=== PATIENT | male | born 1935 | race Caucasian/White ===

== ENCOUNTER 2020-02-27 12:35 | Emergency (ER) | payer MEDICARE ==
[~2020-02-27] VITALS: Ht 182.9 cm; Wt 127.0 kg
--- NOTE | 2020-02-27 12:49 | ED Fall/Injury ---
General Chief Complaint: Trauma-Non Activation Stated Complaint: FALL/HIT HEAD Source: patient Exam Limitations: no limitations History of Present Illness Date Seen by Provider: Feb 27, 2020 Time Seen by Provider: 12:44 Initial Comments To ER with reports of a fall and hit his head. [facility] down on a bench when somehow he fell forward and struck the right side of his forehead on the ground but there was no loss of consciousness. He does have a small abrasion to the right side of forehead. Denies headache or confusion or neck pain. No vomiting or nausea or vision changes. He has some right anterior lateral lower chest pain over the lower ribs as well. He is on Eliquis for history of atrial fibrillation. He arrives by EMS. Occurred: just prior to arrival Severity: moderate Injuries/Pain Location: head, chest Context: unknown Associated Symptoms (Fall): Denies Symptoms Allergies and Home Medications Patient Home Medication List Home Medication List Reviewed: Yes Review of Systems Review of Systems Constitutional: see HPI Eyes: No Symptoms Reported Ears, Nose, Mouth, Throat: no symptoms reported Respiratory: no symptoms reported Cardiovascular: no symptoms reported Genitourinary: no symptoms reported Musculoskeletal: no symptoms reported Skin: no symptoms reported Psychiatric/Neurological: No Symptoms Reported Physical Exam Vital Signs Vital Signs - First Documented 02/27/20 12:39 Temp 35.4 Pulse 72 Resp 20 B/P (MAP) 154/94 (114) Pulse Ox 99 O2 Delivery Room Air Capillary Refill : Height, Weight, BMI Height: '" Weight: lbs. oz. kg; BMI Method: General Appearance: WD/WN, no apparent distress, other (small abrasion to the right side of the forehead. Alert and oriented talkative recalls all events very pleasant. No neck pain.) HEENT: PERRL/EOMI, normal ENT inspection, TMs normal Neck: non-tender, full range of motion; No tender lateral, No tender midline Respiratory: normal breath sounds, no respiratory distress, no accessory muscle use, other (the right anterior lateral lower chest over the lower ribs is tender to palpation but with a normal appearance.) Gastrointestinal: normal bowel sounds, non tender, soft Extremities: normal range of motion, non-tender Neurologic/Psychiatric: alert, normal mood/affect, oriented x 3 Skin: normal color, warm/dry Morena Coma Score Best Eye Response: (4) Open Spontaneously Best Verbal Response: (5) Oriented Best Motor Response: (6) Obeys Commands [place] Total: 15 Progress/Results/Core Measures Results/Orders My Orders Orders - MIRANDA SANCHEZ APRN Ct Head/Cervical Spine Wo (02/27/20 12:40) Ct Chest/Abdomen Wo (02/27/20 12:40) Vital Signs/I&O 02/27/20 12:39 Temp 35.4 Pulse 72 Resp 20 B/P (MAP) 154/94 (114) Pulse Ox 99 O2 Delivery Room Air Diagnostic Imaging Diagonstic Imaging: CT Comments NAME: KAREN CARTER [facility] REC#: [id number] PT STATUS: REG ER : 1935 PHYSICIAN: MIRANDA SANCHEZ APRN ADMIT DATE: 02/27/20/ER Draft Date of Exam:02/27/20 CT HEAD/CERVICAL SPINE WO PROCEDURE: CT head and CT cervical spine without contrast. TECHNIQUE: Multiple contiguous axial images were obtained through the brain and cervical spine without the use of intravenous contrast. Sagittal and coronal reformations through the cervical spine were then performed. Auto Exposure Controls were utilized during the CT exam to meet ALARA standards for radiation dose reduction. INDICATION: Fall with right upper quadrant pain. Hematoma to the right for head. EXAMINATION: CT brain without contrast from 02/27/2020 FINDINGS: Diffuse chronic ischemic changes seen in periventricular deep white matter distribution with no acute infarcts appreciated. There is no hemorrhage. There is diffuse atrophy. No mass, mass effect or midline shift appreciated. The calvarium is intact. Paranasal sinuses and mastoid air cells demonstrate diffuse chronic findings. IMPRESSION: 1. Chronic changes as above with no acute abnormality. CT CERVICAL SPINE: There is a normal height and alignment of the vertebral bodies with osteopenia limiting evaluation. The lung apices are clear. Minimal partial opacification of the left mastoid air cells age indeterminate. Prevertebral soft tissues demonstrate no acute abnormalities. Diffuse multilevel spur disc complex ease and bilateral facet hypertrophy cyst also noted. IMPRESSION: 1. Diffuse multilevel degenerative disease as above with no acute osseous abnormality appreciated. Other findings as above. Dictated on workstation # [id number] Dict: 02/27/20 1405 Trans: 02/27/20 1425 CVB [id number] Interpreted by: AMINATA LYNNE MD Electronically signed by: Departure Impression Primary Impression: Forehead abrasion Qualified Codes: S00.81XA - Abrasion of other part of head, initial encounter Additional Impression: Rib contusion Qualified Codes: S20.211A - Contusion of right front wall of thorax, initial encounter Disposition: HOME, SELF-CARE Condition: Stable Departure-Patient Inst. Decision time for Depature: 12:48 Referrals: UNKNOWN (PCP/Family) Primary Care Physician Patient Instructions: Bruised Rib (DC), Closed Head Injury Add. Discharge Instructions: 1. Return to ER for any concerns such as headache worsening pain and confusion vomiting. 2. Follow-up with your doctor next week All discharge instructions reviewed with patient and/or family. Voiced understanding. MIRANDA SANCHEZ [employer] Feb 27, 2020 12:49
--- NOTE | 2020-02-27 13:10 | NUR ---
Pt daughter, Kerline Weston, contacted this RN regaridng pt update.
--- NOTE | 2020-02-27 14:00 | NUR ---
Pt daughter, Kerline, contacted this RN regarding pt update.
--- NOTE | 2020-02-27 14:18 | Diagnostic Imaging Report ---
PROCEDURE: CT chest and abdomen without contrast. TECHNIQUE: Axial images were obtained from the thoracic inlet through the iliac crest without the administration of intravenous contrast. Auto Exposure Controls were utilized during the CT exam to meet ALARA standards for radiation dose reduction. INDICATION: Fall. Right upper quadrant pain. CT CHEST: The lungs are well-aerated. No infiltrates are seen. There is minimal dependent atelectasis in the lung bases. No pneumothorax or pleural effusion. Aorta is calcified without evidence of aneurysm. 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 No pleural effusion or pericardial effusion. No evidence of rib fractures. Sagittal reformatted images show good alignment of the thoracic and lumbar spine with mild degenerative change. IMPRESSION: No acute abnormalities noted throughout the chest. CT ABDOMEN AND PELVIS: Liver appears normal. Gallbladder is absent. Bile ducts are not dilated. Pancreas is atrophic. Spleen is normal. The adrenal glands are normal. Kidneys appear normal. Aorta is atherosclerotic without aneurysm. Stomach is not distended. Bowel gas appears normal where visualized. No free air or free fluid. No intra-abdominal adenopathy of pathologic size. IMPRESSION: No acute abnormalities noted within the abdomen. Pelvis was not imaged. Dictated by: Dictated on workstation # [id number]
--- NOTE | 2020-02-27 14:25 | Diagnostic Imaging Report ---
PROCEDURE: CT head and CT cervical spine without contrast. TECHNIQUE: Multiple contiguous axial images were obtained through the brain and cervical spine without the use of intravenous contrast. Sagittal and coronal reformations through the cervical spine were then performed. Auto Exposure Controls were utilized during the CT exam to meet ALARA standards for radiation dose reduction. INDICATION: Fall with right upper quadrant pain. Hematoma to the right for head. EXAMINATION: CT brain without contrast from 02/27/2020 FINDINGS: Diffuse chronic ischemic changes seen in periventricular deep white matter distribution with no acute infarcts appreciated. There is no hemorrhage. There is diffuse atrophy. No mass, mass effect or midline shift appreciated. The calvarium is intact. Paranasal sinuses and mastoid air cells demonstrate diffuse chronic findings. IMPRESSION: 1. Chronic changes as above with no acute abnormality. CT CERVICAL SPINE: There is a normal height and alignment of the vertebral bodies with osteopenia limiting evaluation. The lung apices are clear. Minimal partial opacification of the left mastoid air cells age indeterminate. Prevertebral soft tissues demonstrate no acute abnormalities. Diffuse multilevel spur disc complex ease and bilateral facet hypertrophy cyst also noted. IMPRESSION: 1. Diffuse multilevel degenerative disease as above with no acute osseous abnormality appreciated. Other findings as above. Dictated by: Dictated on workstation # [id number]
--- NOTE | 2020-02-27 14:39 | NUR ---
This RN assisted pt with standing at bedside. Upon standing pt denies dizziness. Provider at bedside.
[2020-02-27 14:40] VITALS: BP 159/84
== END 2020-02-27 14:40 | disposition home or self-care (01) ==
LOC: EDUNIT# 12:35 → ER 12:37
DX: S20.211A Contusion of right front wall of thorax, initial encounter (principal); S00.81XA Abrasion of other part of head, initial encounter; R40.2410 Glasgow coma scale score 13-15, unspecified time; W18.39XA Other fall on same level, initial encounter; W22.8XXA Striking against or struck by other objects, initial encounter
CPT/HCPCS: 70450; 71250; 72125; 74150

== ENCOUNTER 2020-03-09 16:03 | Emergency (ER) | payer MEDICARE ==
[~2020-03-09] VITALS: Ht 182 cm; Wt 127.0 kg
[2020-03-09 16:09] VITALS: BP 137/88
[2020-03-09] MEDS ORDERED: DICYCLOMINE 10 MG (BENTYL) CAP PO ONE (16:30)
--- NOTE | 2020-03-09 16:44 | ED Abdominal Pain ---
General Chief Complaint: Abdominal/GI Problems Stated Complaint: ABD PAIN Nursing Triage Note: PT PRESENTS TO ED FOR ABD PAIN AND RECTAL BLEEDING. PT REPORTS ABD PAIN X'S 6 DAYS. BLEEDING WAS NOTICED AFTER TAKING MILK OF MAGNESIUM. Sepsis Screen: No Definite Risk History of Present Illness Date Seen by Provider: Mar 09, 2020 Time Seen by Provider: 16:15 Initial Comments 84-year-old male reports abdominal cramping related to constipation. In addition he has been straining when attempting bowel movements, he has noted some blood from his hemorrhoids. Patient reports no bowel movement x4 days. He has been taking pain medicine related to bruised ribs. He does not ambulate a significant amount. Today he tried to take milk of magnesia and stool softeners with no results. He has not used an enema. Patient denies nausea or vomiting. He is passing flatus. Timing/Duration: 4-5 Days Severity/Quality: Mild Location: Generalized Abdomen Radiation: No Radiation Associated Symptoms: No Heartburn, No Nausea/Vomiting Allergies and Home Medications Allergies Coded Allergies: Penicillins (Verified Allergy, Unknown, Anaphylaxis, 02/27/20) promethazine (Verified Allergy, Unknown, Anaphylaxis, 02/27/20) ramelteon (Verified Allergy, Unknown, Shortness of Breath, 02/27/20) "Severe bronchospasm" sotalol (Verified Allergy, Unknown, Shortness of Breath, 02/27/20) "Severe bronchospasm" Patient Home Medication List Home Medication List Reviewed: Yes Review of Systems Review of Systems Constitutional: no symptoms reported, see HPI Gastrointestinal: See HPI, Abdomen Distended, Constipated; Denies Diarrhea, Denies Nausea, Denies Poor Appetite, Denies Poor Fluid Intake; Rectal Bleeding (trace from hemorrhoids) All Other Systems Reviewed Negative Unless Noted: Yes Past Cflpiul-Vinodn-Yglwfo Hx Past Med/Social Hx: Reviewed Nursing Past Med/Soc Hx Patient Social History Alcohol Use: Occasionally Uses Recreational Drug Use: No Smoking Status: Never a Smoker 2nd Hand Smoke Exposure: No Recent Foreign Travel: No Contact w/Someone Who Travel: No Recent Infectious Disease Expo: No Recent Hopitalizations: No Seasonal Allergies Seasonal Allergies: No Past Medical History Surgeries: Yes (Bilat "lens" implants, Laminectomy, Ablation, Cardiac stent, ) Orthopedic, Pacemaker Respiratory: Yes (Exertional SOA) Asthma, Sleep Apnea Heart Attack Endocrine: Yes Diabetes, Insulin dep HEENT: Yes Cataract, Macular Degeneration Cancer: No Integumentary: No Physical Exam Vital Signs Vital Signs - First Documented 03/09/20 16:09 Temp 35.9 Pulse 68 Resp 20 B/P (MAP) 137/88 (104) Pulse Ox 95 O2 Delivery Room Air Capillary Refill : Less Than 3 Seconds Height/Weight/BMI Height: '" Weight: lbs. oz. kg; 38.00 BMI Method: General Appearance: WD/WN, no apparent distress Respiratory: chest non-tender, lungs clear, normal breath sounds Cardiovascular: normal peripheral pulses, regular rate, rhythm Gastrointestinal: normal bowel sounds, distended (Firm); No guarding, No rebound; tenderness (Trace, generalized) Back: normal inspection, no CVA tenderness Neurologic/Psychiatric: no motor/sensory deficits, alert, normal mood/affect, oriented x 3 Skin: normal color, warm/dry Progress/Results/Core Measures Results/Orders My Orders Orders - SELINA MARIE Dicyclomine Capsule (Bentyl Capsule) (03/09/20 16:30) Medications Given in ED Current Medications Medications Dose Ordered Sig/Vickie Route Start Time Stop Time Status Last Admin Dose Admin Dicyclomine HCl 20 mg ONCE ONCE PO 03/09/20 16:30 03/09/20 16:31 DC 03/09/20 16:44 20 MG Vital Signs/I&O 03/09/20 16:09 Temp 35.9 Pulse 68 Resp 20 B/P (MAP) 137/88 (104) Pulse Ox 95 O2 Delivery Room Air Blood Pressure Mean: 104 Progress Progress Note : Time: 16:15 Progress Note Patient seen and evaluated. Discussed his hemorrhoids and need to take stool softeners when on opioids. Will use Bentyl for the abdominal cramping. Recommended using an enema when he returns home. Reassured that he had good bowel sounds and no evidence to suggest a bowel obstruction. Discharge instructions and return precautions discussed with the patient. All questions answered. notified by phone update on his care. Departure Impression Primary Impression: Constipation Qualified Codes: K59.00 - Constipation, unspecified Additional Impression: Abdominal pain Qualified Codes: R10.84 - Generalized abdominal pain Disposition: 01 HOME, SELF-CARE Condition: Stable Departure-Patient Inst. Decision time for Depature: 16:45 Ref[place]: [facility] [place] Primary Care Physician Patient Instructions: Severe Abdominal Pain, Adult (DC), Constipation, Adult (DC) Add. Discharge Instructions: Increase water intake, 16 ounces every 2 hours while awake. Continue to take a stool softener 1 tablet twice daily. Increase ambulation to help to prevent constipation. Limit the use of pain medication as this will cause constipation. Increase fruits and vegetables in your diet. Use Tucks pads and Preparation H for your hemorrhoids. Use an enema as soon as you get home. You should have results within 15 to 20 minutes. Return to the emergency department for new, urgent healthcare needs. All discharge instructions reviewed with patient and/or family. Voiced understanding. SELINA MARIE Mar 09, 2020 16:44
== END 2020-03-09 16:55 | disposition home or self-care (01) ==
LOC: EDUNIT# 16:03 → ER 16:06
DX: K59.00 Constipation, unspecified (principal); R10.84 Generalized abdominal pain; I25.2 Old myocardial infarction; Z95.5 Presence of coronary angioplasty implant and graft; Z95.0 Presence of cardiac pacemaker; Z88.0 Allergy status to penicillin; Z88.8 Allergy status to other drugs, medicaments and biological substances
CPT/HCPCS: 99283

== ENCOUNTER 2020-04-19 05:37 | Emergency (ER) | payer MEDICARE ==
[~2020-04-19] VITALS: Ht 182.9 cm; Wt 127.0 kg
[2020-04-19] MEDS ORDERED: LACTATED RINGERS 1,000 ML IV ONE (06:00)
[2020-04-19] MEDS ORDERED: ONDANSETRON 4 MG/2 ML (SDV) Z0FRAN ONE (06:01)
[2020-04-19] MEDS ORDERED: NS IV 1000 ML 1,000 ML ONE (06:10)
[2020-04-19] MEDS ORDERED: ONDANSETRON 4 MG/2 ML (SDV) Z0FRAN IVP ONE (06:15)
[2020-04-19] MEDS ORDERED: NS IV 1000 ML 1,000 ML IV SCH (06:15)
[2020-04-19 06:20] LABS: BASOPHILS # (AUTO) 0.1 10^3/uL (0.0-0.1); BASOPHILS % (AUTO) 0 % (0-10); EOSINOPHILS # (AUTO) 0.2 10^3/uL (0.0-0.3); EOSINOPHILS % (AUTO) 1 % (0-10); HEMATOCRIT 45 % (40-54); LYMPHOCYTES # (AUTO) 1.6 10^3/uL (1.0-4.0); LYMPHOCYTES % (AUTO) 9 % (12-44); MEAN CORPUSCULAR HEMOGLOBIN 28 pg (25-34); MEAN CORPUSCULAR HGB CONC 32 g/dL (32-36); MEAN CORPUSCULAR VOLUME 89 fL (80-99); MEAN PLATELET VOLUME 12.9 fL (9.0-12.2); MONOCYTES # (AUTO) 0.8 10^3/uL (0.0-1.0); MONOCYTES % (AUTO) 4 % (0-12); NEUTROPHILS % (AUTO) 85 % (42-75); PLATELET COUNT 136 10^3/uL (130-400); WHITE BLOOD COUNT 18.8 10^3/uL (4.3-11.0)
--- NOTE | 2020-04-19 06:21 | ED GI ---
General Chief Complaint: Abdominal/GI Problems Stated Complaint: DIARRHEA,VOMITING,STOMACH PAIN Nursing Triage Note: PT TO ROOM 05 VIA W/C WITH C/O N/V/D X2 DAYS. PT DENIES FEVER, COUGH, SOB. Sepsis Screen: No Definite Risk Source of Information: Patient (SOMEWHAT LIMITED HISTORIAN ABOUT PAST MEDICAL HISTORY), Spouse ('S HANDWRITTEN NOTES GIVE ALL INFORMATION ABOUT CURRENT PROBLEM AND PAST MEDICAL HISTORY) History of Present Illness Date Seen by Provider: Apr 19, 2020 Time Seen by Provider: 05:55 Initial Comments PT ARRIVES VIA POV FROM HOME STATES HE STARTED FEELING A LITTLE SICK YESTERDAY MORNING ( 'S NOTE REPORTS THAT HE HAS BEEN SICK FOR 48 HOURS) C/O NAUSEA/VOMITING/DIARRHEA/MID ABDOMINAL PAIN STATES HE HAS VOMITED X 2 THIS AM HAS HAD DIARRHEA APPROXIMATELY 10 TIMES--NO BLACK/BLOODY/TARRY STOOLS NO FEVER DECREASED FOOD AND LIQUID INTAKE==STATES LAST FOOD INTAKE WAS YESTERDAY AT NOON STATES HE IS STILL URINATING NO COUGH OR RESPIRATORY SYMPTOMS NO LOSS OF TASTE OR SMELL NO CHEST PAIN NO BACK PAIN NO KNOWN EXPOSURE TO COVID-19 STATES HIS SON-IN-LAW HAD A 1 DAY GI ILLNESS RECENTLY, BUT NO ONE ELSE HAS BEEN ILL--LIVES WITH THEM. STATES HE JUST MOVED HERE ABOUT 2 MONTHS AGO FROM [place]. SEEN HERE 02/27/20 AFTER A FALL, WHILE HE WAS TRYING TO SIT DOWN ON A BENCH--HAD ABRASION TO HEAD AND BRUISED RIBS SEEN HERE AGAIN 03/09/20 FOR CONSTIPATION AND ABDOMINAL CRAMPING--FELT TO BE RELATED TO PAIN MEDICATION HE WAS TAKING FOR BRUISED RIBS PT IS INSULIN DEPENDENT DIABETIC HAS NOT CHECKED BLOOD GLUCOSE TODAY HAS NOT TAKEN ANY OF HIS MEDICATIONS TODAY PT WITH FAIRLY EXTENSIVE CARDIAC HISTORY--ON ELIQUIS FOR ATRIAL FIBRILLATION, HAS HAD MO WITH STENTS, PACEMAKER, CARDIAC ABLATION, ETC. PCP: [facility] [facility] DESIGNER: DR. VAZQUEZ Allergies and Home Medications Allergies Coded Allergies: Penicillins (Verified Allergy, Unknown, Anaphylaxis, 02/27/20) promethazine (Verified Allergy, Unknown, Anaphylaxis, 02/27/20) ramelteon (Verified Allergy, Unknown, Shortness of Breath, 02/27/20) "Severe bronchospasm" sotalol (Verified Allergy, Unknown, Shortness of Breath, 02/27/20) "Severe bronchospasm" Home Medications Dicyclomine HCl 20 Mg Tablet, 20 MG PO Q6H Prescribed by: MARYJO MILLER on 04/19/20 0753 Ondansetron 4 Mg Tab.rapdis, 4 MG PO Q4H Prescribed by: MARYJO MILLER on 04/19/20752 Patient Home Medication List Home Medication List Reviewed: Yes Review of Systems Review of Systems Constitutional: no symptoms reported; No chills, No diaphoresis, No dizziness EENTM: No Symptoms Reported Respiratory: No Symptoms Reported; Denies Cough, Denies Shortness of Air Cardiovascular: No Symptoms Reported; Denies Chest Pain, Denies Edema, Denies Lightheadedness, Denies Palpitations, Denies Syncope Gastrointestinal: See HPI, Abdominal Pain, Diarrhea, Nausea, Poor Appetite, Poor Fluid Intake, Vomiting Genitourinary: No Symptoms Reported Musculoskeletal: no symptoms reported Skin: no symptoms reported Psychiatric/Neurological: No Symptoms Reported Endocrine: No Symptoms Reported Hematologic/Lymphatic: See HPI (ON ELIQUIS) Past Gjxrtdy-Isswok-Nrxaeu Hx Past Med/Social Hx: Reviewed and Corrections made Patient Social History Alcohol Use: Occasionally Uses Recreational Drug Use: No Smoking Status: Never a Smoker 2nd Hand Smoke Exposure: No Recent Foreign Travel: No Contact w/Someone Who Travel: No Recent Infectious Disease Expo: No Recent Hopitalizations: No Physical Abuse: No Sexual Abuse: No Mistreated: No Fear: No Seasonal Allergies Seasonal Allergies: No Past Medical History Surgeries: Yes (Bilat "lens" implants, Laminectomy, Ablation, Cardiac stent, ) Cardiac, Coronary Stent, Gallbladder, Orthopedic, Pacemaker, Valve Replacement Respiratory: Yes (Exertional SOA; PULMONARY FIBROSIS; SILICOSIS) Asthma, Sleep Apnea, COPD Currently Using CPAP: Yes Currently Using BIPAP: No Cardiac: Yes (SVT; AFIB & FLUTTER;STEMI 04/13/15;ABLATION; PACEMAKER; TAVR;STENTS) Atrial Fibrillation, Coronary Artery Disease, Heart Attack, High Cholesterol, Hypertension, Irregular Heartbeat, Valvular Heart Disease Neurological: Yes (BALANCE PROBLEMS) Genitourinary: No Gastrointestinal: Yes (S/P CHOLECYSTECTOMY) Endocrine: Yes (OBESITY) Diabetes, Insulin dep HEENT: Yes (BILATERAL CATARACT SURGERY) Cataract, Macular Degeneration Hearing Impairment: Hard of Hearing Cancer: No Psychosocial: No Integumentary: No Family Medical History PAST SURGICAL HISTORY: -OPEN CHOLECYSTECTOMY -CARDIAC CATHS--STENT X2--07/2007 AND HAD MO WITH STENT 04/03/15 -DUAL CHAMBER PACEMAKER--GARCIA--RIGHT CHEST -CARDIAC ABLATION 11/05/16 -TAVR 12/23/17 -LUNG BIOPSY 02/17/19 -BILATERAL CATARACT SURGERY 03/2019 Physical Exam Vital Signs Vital Signs - First Documented 04/19/20 05:52 Temp 34.3 Pulse 87 Resp 19 B/P (MAP) 183/85 (117) O2 Delivery Room Air Capillary Refill : Less Than 3 Seconds Height/Weight/BMI Height: '" Weight: lbs. oz. kg; 37.00 BMI Method: General Appearance: WD/WN, no apparent distress, obese HEENT: PERRL/EOMI Neck: normal inspection Respiratory: normal breath sounds, no respiratory distress, no accessory muscle use Cardiovascular: regular rate, rhythm, no edema, no JVD, no murmur Gastrointestinal: normal bowel sounds, soft; No guarding; tenderness, other (ABDOMEN OBESE/ROTUND; MILD GENERALIZED TENDERNESS; BILATERAL MID ABDOMEN WITH EXTENSIVE SCARRING AND SKIN LAXITY DUE TO LOCAL AREA NETWORK ADMINISTRATOR INSULIN USE--SITES OF INSULIN INJECTIONS) Extremities: non-tender, normal capillary refill, pedal edema (TRACE EDEMA BILA TERALLY) Back: normal inspection, no CVA tenderness Neurologic/Psychiatric: timber surveyor II-XII nml as tested, no motor/sensory deficits, alert, normal mood/affect, oriented x 3 Skin: normal color (FAIR SKINNED), warm/dry Focused Exam Lactate Level 04/19/20 05:58: Lactic Acid Level 1.45 Lactic Acid Level Laboratory Tests Test 04/19/20 05:58 Lactic Acid Level 1.45 MMOL/L (0.50-2.00) Progress/Results/Core Measures Results/Orders Lab Results Laboratory Tests Test 04/19/20 05:58 04/19/20 06:09 04/19/20 07:11 Range/Units White Blood Count 18.8 H 4.3-11.0 10^3/uL Red Blood Count 5.01 4.30-5.52 10^6/uL Hemoglobin 14.0 13.3-17.7 g/dL Hematocrit 45 40-54 % Mean Corpuscular Volume 89 80-99 fL Mean Corpuscular Hemoglobin 28 25-34 pg Mean Corpuscular Hemoglobin Concent 32 32-36 g/dL Red Cell Distribution Width 15.2 H 10.0-14.5 % Platelet Count 136 130-400 10^3/uL Mean Platelet Volume 12.9 H 9.0-12.2 fL Immature Granulocyte % (Auto) 1 % Neutrophils (%) (Auto) 85 H 42-75 % Lymphocytes (%) (Auto) 9 L 12-44 % Monocytes (%) (Auto) 4 0-12 % Eosinophils (%) (Auto) 1 0-10 % Basophils (%) (Auto) 0 0-10 % Neutrophils # (Auto) 16.0 H 1.8-7.8 10^3/uL Lymphocytes # (Auto) 1.6 1.0-4.0 10^3/uL Monocytes # (Auto) 0.8 0.0-1.0 10^3/uL Eosinophils # (Auto) 0.2 0.0-0.3 10^3/uL Basophils # (Auto) 0.1 0.0-0.1 10^3/uL Immature Granulocyte # (Auto) 0.2 H 0.0-0.1 10^3/uL Neutrophils % (Manual) 80 % Lymphocytes % (Manual) 8 % Monocytes % (Manual) 5 % Eosinophils % (Manual) 2 % Band Neutrophils 5 % Blood Morphology Comment NORMAL Prothrombin Time 15.4 H 12.2-14.7 SEC INR Comment 1.2 0.8-1.4 Activated Partial Thromboplast Time 33 24-35 SEC Sodium Level 144 135-145 MMOL/L Potassium Level 3.9 3.6-5.0 MMOL/L Chloride Level 108 H 98-107 MMOL/L Carbon Dioxide Level 22 21-32 MMOL/L Anion Gap 14 5-14 MMOL/L Blood Urea Nitrogen 25 H 7-18 MG/DL Creatinine 1.56 H 0.60-1.30 MG/DL Estimat Glomerular Filtration Rate 43 BUN/Creatinine Ratio 16 Glucose Level 255 H 70-105 MG/DL Lactic Acid Level 1.45 0.50-2.00 MMOL/L Calcium Level 9.6 8.5-10.1 MG/DL Corrected Calcium 9.4 8.5-10.1 MG/DL Magnesium Level 2.1 1.6-2.4 MG/DL Total Bilirubin 0.7 0.1-1.0 MG/DL Aspartate Amino Transf (AST/SGOT) 18 5-34 U/L Alanine Aminotransferase (ALT/SGPT) 23 0-55 U/L Alkaline Phosphatase 123 40-136 U/L Total Protein 7.0 6.4-8.2 GM/DL Albumin 4.2 3.2-4.5 GM/DL Amylase Level 31 25-125 U/L Lipase 10 8-78 U/L Glucometer 248 H 70-110 MG/DL Urine Color YELLOW Urine Clarity CLEAR Urine pH 5.5 5-9 Urine Specific [place] 1.020 1.016-1.022 Urine Protein 1+ H NEGATIVE Urine Glucose (UA) 3+ H NEGATIVE Urine Ketones TRACE H NEGATIVE Urine Nitrite NEGATIVE NEGATIVE Urine Bilirubin NEGATIVE NEGATIVE Urine Urobilinogen 0.2 < = 1.0 MG/DL Urine Leukocyte Esterase NEGATIVE NEGATIVE Urine RBC (Auto) NEGATIVE NEGATIVE Urine RBC NONE /HPF Urine WBC NONE /HPF Urine Squamous Epithelial Cells 5-10 /HPF Urine Crystals PRESENT H /LPF Urine Calcium Oxalate Crystals FEW H /LPF Urine Bacteria NEGATIVE /HPF Urine Casts NONE /LPF Urine Mucus SMALL H /LPF Urine Culture Indicated NO My Orders Orders - MARYJO MILLER DO Ed Iv/Invasive Line Start (04/19/20 05:59) Monitor-Rhythm Ecg Trace Only (04/19/20 05:59) Amylase (04/19/20 05:59) Cbc With Automated Diff (04/19/20 05:59) Comprehensive Metabolic Panel (04/19/20 05:59) Lactic Acid Analyzer (04/19/20 05:59) Lipase (04/19/20 05:59) Magnesium (04/19/20 05:59) Protime With Inr (04/19/20 05:59) Partial Thromboplastin Time (04/19/20 05:59) Ua Culture If Indicated (04/19/20 05:59) Blood Culture (04/19/20 05:59) Ed Iv/Invasive Line Start (04/19/20 05:59) Lactated Ringers (Lr 1000 Ml Iv Solution (04/19/20 06:00) Ondansetron Injection (Zofran Injectio (04/19/20 06:01) Ondansetron Injection (Zofran Injectio (04/19/20 06:15) Accucheck Stat ONCE (04/19/20 06:07) Ns Iv 1000 Ml (Sodium Chloride 0.9%) (04/19/20 06:10) Ed Iv/Invasive Line Start (04/19/20 06:14) Ns Iv 1000 Ml (Sodium Chloride 0.9%) (04/19/20 06:15) Ekg Tracing (04/19/20 06:14) Manual Differential (04/19/20 05:58) Chest 1 View, Ap/Pa Only (04/19/20 06:32) Ct Abdomen/Pelvis Wo (04/19/20 06:32) Procalcitonin (Pct) (04/19/20 07:27) Medications Given in ED Current Medications Medications Dose Ordered Sig/Vickie Route Start Time Stop Time Status Last Admin Dose Admin Lactated Ringer's 1,000 ml @ 0 mls/hr Q0M ONCE IV 04/19/20 06:00 04/19/20 06:01 DC 04/19/20 06:06 999 MLS/HR Ondansetron HCl 4 mg STK-MED ONCE .ROUTE 04/19/20 06:01 04/19/20 06:05 DC 04/19/20 06:06 4 MG Vital Signs/I&O 04/19/20 05:52 Temp 34.3 Pulse 87 Resp 19 B/P (MAP) 183/85 (117) O2 Delivery Room Air Blood Pressure Mean: 117 FSBG Bedside Testing Finger Stick Blood Glucose: 248 Blood Glucose Action Taken: PROVIDER NOTIFIED Progress Progress Note : Progress Note GIVEN IV FLUIDS AND ZOFRAN NAUSEA AND PAIN IMPROVED, NO VOMITING OR DIARRHEA DURING ER STAY TOLERATING ICE CHIPS Initial ECG Impression Date: Apr 19, 2020 Initial ECG Impression Time: 06:24 Initial ECG Rate: 76 Initial ECG Rhythm: Normal Sinus Initial ECG Comparisson: No Previous ECG Available Diagnostic Imaging Comments PER RADIOLOGIST REPORTS AT 0725 CXR-- There is eventration of the right hemidiaphragm. Heart size and pulmonary vascularity are within normal limits. There is no evidence of pneumothorax or consolidation. Right anterior chest wall dual-chamber cardiac pacemaker is in place. 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 IMPRESSION: No acute abnormality is detected. CT ABDOMEN/PELVIS- There is mild basilar atelectasis and/or scarring. There are calcified granulomas present within the liver and spleen. Otherwise no focal abnormality is identified. There is fluid distention of the stomach. No pancreatic, adrenal gland or renal abnormality is identified. There is no evidence of free fluid within the abdomen or pelvis. There is atherosclerotic calcification at the origin of the superior mesenteric artery. There is diffuse fluid distention of small bowel. There is no evidence of bowel obstruction. No focal inflammation is identified. Unopacified urinary bladder is unremarkable in appearance. There is mild lower lumbar degenerative disc disease. 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 There is fluid distention of stomach and small bowel without definite transition point to indicate an obstruction. Overall, no acute abnormality is identified. Reviewed: Reviewed by Me Departure Impression Primary Impression: Gastroenteritis Additional Impressions: Dehydration IDDM (insulin dependent diabetes mellitus) HTN (hypertension) Disposition: HOME, SELF-CARE Condition: Improved Departure-Patient Inst. Referrals: [facility] (PCP/Family) Primary Care Physician Patient Instructions: Viral Gastroenteritis, Adult (DC) Add. Discharge Instructions: CLEAR LIQUIDS--WATER, BROTH, JELLO, GATORADE TOMORROW IF YOU ARE BETTER, ADD BRATS DIET TO CLEAR LIQUIDS--BANANAS, RICE, APPLESAUCE, TOAST, SALTINES FOLLOW UP WITH YOUR DR IN TOMORROW IF NO BETTER, RETURN TO ER IF WORSE All discharge instructions reviewed with patient and/or family. Voiced understanding. Scripts Dicyclomine HCl (Dicyclomine HCl) 20 Mg Tablet 20 MG PO Q6H for Abdominal Pain, #20 TAB Prov: MARYJO MILLER DO 04/19/20 Ondansetron (Ondansetron Odt) 4 Mg Tab.rapdis 4 MG PO Q4H for Nausea/Vomiting, #10 TAB Prov: MARYJO MILLER DO 04/19/20 MARYJO MILLER DO Apr 19, 2020 06:21
[2020-04-19 06:23] LABS: ALBUMIN 4.2 GM/DL (3.2-4.5); INR 1.2 (0.8-1.4); PROTHROMBIN TIME PATIENT 15.4 SEC (12.2-14.7)
[2020-04-19 06:24] LABS: POTASSIUM 3.9 MMOL/L (3.6-5.0)
[2020-04-19 06:25] LABS: CALCIUM 9.6 MG/DL (8.5-10.1)
[2020-04-19 06:28] LABS: BILIRUBIN,TOTAL 0.7 MG/DL (0.1-1.0)
[2020-04-19 06:30] LABS: CREATININE SERUM 1.56 MG/DL (0.60-1.30)
[2020-04-19 06:32] LABS: MAGNESIUM 2.1 MG/DL (1.6-2.4)
[2020-04-19 06:52] LABS: BAND NEUTROPHILS 5 %; EOSINOPHILS % (MANUAL) 2 %; LYMPHOCYTES % (MANUAL) 8 %; MONOCYTES % (MANUAL) 5 %; NEUTROPHILS % (MANUAL) 80 %; RBC MORPH NORMAL
--- NOTE | 2020-04-19 07:13 | Diagnostic Imaging Report ---
INDICATION: Abdominal pain with nausea and emesis and diarrhea AP view of the chest is obtained. There is eventration of the right hemidiaphragm. Heart size and pulmonary vascularity are within normal limits. There is no evidence of pneumothorax or consolidation. Right anterior chest wall dual-chamber cardiac pacemaker is in place. 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 IMPRESSION: No acute abnormality is detected. Dictated by: Dictated on workstation # [id number]
--- NOTE | 2020-04-19 07:16 | Diagnostic Imaging Report ---
PROCEDURE: CT abdomen and pelvis without contrast. TECHNIQUE: Multiple contiguous axial images were obtained through the abdomen and pelvis without the use of intravenous contrast. Auto Exposure Controls were utilized during the CT exam to meet ALARA standards for radiation dose reduction. INDICATION: Nausea, emesis and diarrhea There is mild basilar atelectasis and/or scarring. There are calcified granulomas present within the liver and spleen. Otherwise no focal abnormality is identified. There is fluid distention of the stomach. No pancreatic, adrenal gland or renal abnormality is identified. There is no evidence of free fluid within the abdomen or pelvis. There is atherosclerotic calcification at the origin of the superior mesenteric artery. There is diffuse fluid distention of small bowel. There is no evidence of bowel obstruction. No focal inflammation is identified. Unopacified urinary bladder is unremarkable in appearance. There is mild lower lumbar degenerative disc disease. 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 There is fluid distention of stomach and small bowel without definite transition point to indicate an obstruction. Overall, no acute abnormality is identified. Dictated by: Dictated on workstation # [id number]
[2020-04-19 07:17] LABS: BILIRUBIN,URINE NEGATIVE (NEGATIVE); CLARITY,URINE CLEAR; COLOR,URINE YELLOW; GLUCOSE, URINE (UA) 3+ (NEGATIVE); KETONES,URINE TRACE (NEGATIVE); LEUKOCYTE ESTERASE ,URINE NEGATIVE (NEGATIVE); NITRITE,URINE NEGATIVE (NEGATIVE); PH,URINE 5.5 (5-9); PROTEIN,URINE 1+ (NEGATIVE)
[2020-04-19 07:24] LABS: BACTERIA,URINE NEGATIVE /HPF; CALCIUM OXALATE CRYSTALS,UR FEW /LPF
--- NOTE | 2020-04-19 07:31 | NUR ---
ICE CHIPS GIVEN
--- NOTE | 2020-04-19 07:51 | NUR ---
TOLERATED ICE CHIPS
[2020-04-19] MEDS ORDERED: ONDA4TAB11 PO (07:53)
[2020-04-19] MEDS ORDERED: DICY20TA10 PO (07:53)
[2020-04-19 08:01] VITALS: BP 117/75
[2020-04-20] MEDS ORDERED: INSU100I29 SQ ×2 (06:16)
[2020-04-20] MEDS ORDERED: MULT-1136 PO (06:16)
[2020-04-20] MEDS ORDERED: ASPI-999 PO (06:16)
[2020-04-20] MEDS ORDERED: APIX5TAB PO (06:16)
[2020-04-20] MEDS ORDERED: EMPA10TA PO (06:16)
[2020-04-20] MEDS ORDERED: B2/V1TAB PO (06:16)
[2020-04-20] MEDS ORDERED: FURO20TA4 PO (06:16)
[2020-04-20] MEDS ORDERED: LOPE-134 PO (06:16)
[2020-04-20] MEDS ORDERED: LORA-404 PO (06:16)
[2020-04-20] MEDS ORDERED: RT-ALBUINH IH (06:16)
[2020-04-20] MEDS ORDERED: FLUT1BLS3 INH (06:16)
[2020-04-20] MEDS ORDERED: INSU100I14 SQ ×5 (06:16)
[2020-04-20] MEDS ORDERED: ZOLP10TA PO (06:16)
[2020-04-20] MEDS ORDERED: METO50TA15 PO (06:16)
[2020-04-20] MEDS ORDERED: MAGN1TAB31 PO (06:16)
[2020-04-20] MEDS ORDERED: CLD600T PO (06:16)
[2020-04-20] MEDS ORDERED: LOSA25TA41 PO (06:16)
[2020-04-20] MEDS ORDERED: OMEP40CA27 PO (06:16)
[2020-04-20] MEDS ORDERED: ATOR20TA66 PO (06:16)
[2020-04-20] MEDS ORDERED: POTA8TAB53 PO (06:16)
[2020-04-20] MEDS ORDERED: SERT50TA9 PO (06:16)
[2020-04-20] MEDS ORDERED: ALBU18HF2 INH (10:38)
[2020-04-20] MEDS ORDERED: MULT-1029 PO (10:38)
[2020-04-20] MEDS ORDERED: ANTI1CAP2 PO (10:38)
[2020-04-20] MEDS ORDERED: NITR0.4T42 SL (10:38)
[2020-04-20] MEDS ORDERED: ASPI-1238 PO (10:49)
== END 2020-04-19 08:10 | disposition home or self-care (01) ==
LOC: EDUNIT# 05:37 → ER 05:39
DX: K52.9 Noninfective gastroenteritis and colitis, unspecified (principal); E86.0 Dehydration; E10.9 Type 1 diabetes mellitus without complications; I10 Essential (primary) hypertension; E66.9 Obesity, unspecified; I25.2 Old myocardial infarction; Z68.37 Body mass index [BMI] 37.0-37.9, adult; Z95.5 Presence of coronary angioplasty implant and graft; Z95.0 Presence of cardiac pacemaker; Z88.0 Allergy status to penicillin; Z88.8 Allergy status to other drugs, medicaments and biological substances
CPT/HCPCS: 36415; 71045; 74176; 80053; 81000; 82150; 82962; 83605; 83690; 83735; 84145; 85007; 85027; 85610; 85730; 87040; 93005; 93041

== ENCOUNTER 2020-04-19 17:04 | Inpatient (IN) | payer MEDICARE ==
[~2020-04-19] VITALS: Ht 182.8 cm; Wt 127.4 kg
[~2020-04-19 17:04] MED LIST: DICY20TA10 PO; ONDA4TAB11 PO
[2020-04-19] MEDS ORDERED: LACTATED RINGERS 1,000 ML IV ONE (17:15)
[2020-04-19] MEDS ORDERED: ONDANSETRON 4 MG/2 ML (SDV) Z0FRAN IVP ONE (17:15)
[2020-04-19 17:34] LABS: BASOPHILS % (AUTO) 0 % (0-10); EOSINOPHILS # (AUTO) 0.2 10^3/uL (0.0-0.3); EOSINOPHILS % (AUTO) 2 % (0-10); HEMATOCRIT 44 % (40-54); HEMOGLOBIN 13.8 g/dL (13.3-17.7); LYMPHOCYTES # (AUTO) 0.6 10^3/uL (1.0-4.0); LYMPHOCYTES % (AUTO) 5 % (12-44); MEAN CORPUSCULAR HEMOGLOBIN 28 pg (25-34); MEAN CORPUSCULAR HGB CONC 31 g/dL (32-36); MEAN CORPUSCULAR VOLUME 90 fL (80-99); MEAN PLATELET VOLUME 12.7 fL (9.0-12.2); MONOCYTES # (AUTO) 0.6 10^3/uL (0.0-1.0); MONOCYTES % (AUTO) 4 % (0-12); NEUTROPHILS # (AUTO) 12.2 10^3/uL (1.8-7.8); NEUTROPHILS % (AUTO) 89 % (42-75); PLATELET COUNT 138 10^3/uL (130-400); WHITE BLOOD COUNT 13.7 10^3/uL (4.3-11.0)
[2020-04-19 17:44] LABS: POTASSIUM 3.9 MMOL/L (3.6-5.0)
[2020-04-19 17:45] LABS: CALCIUM 9.1 MG/DL (8.5-10.1)
[2020-04-19 17:46] LABS: TOTAL PROTEIN 6.5 GM/DL (6.4-8.2)
[2020-04-19 17:48] LABS: BILIRUBIN,TOTAL 0.7 MG/DL (0.1-1.0)
[2020-04-19 17:50] LABS: GLUCOSE, URINE (UA) 2+ (NEGATIVE); KETONES,URINE TRACE (NEGATIVE); LEUKOCYTE ESTERASE ,URINE NEGATIVE (NEGATIVE); NITRITE,URINE NEGATIVE (NEGATIVE); PH,URINE 5.5 (5-9); PROTEIN,URINE 1+ (NEGATIVE)
[2020-04-19 17:50] LABS: ANISOCYTOSIS SLIGHT; BAND NEUTROPHILS 35 %; BASOPHILS % (MANUAL) 0 %; CREATININE SERUM 1.47 MG/DL (0.60-1.30); EOSINOPHILS % (MANUAL) 1 %; LYMPHOCYTES % (MANUAL) 4 %; MONOCYTES % (MANUAL) 4 %; NEUTROPHILS % (MANUAL) 55 %; REACTIVE LYMPHOCYTES 1 %
[2020-04-19 17:53] LABS: MAGNESIUM 1.9 MG/DL (1.6-2.4)
[2020-04-19 17:55] LABS: BILIRUBIN,URINE 1+ (NEGATIVE)
[2020-04-19 17:56] LABS: CLARITY,URINE SL CLOUDY; COLOR,URINE DARK YELLOW
[2020-04-19 17:58] LABS: AMORPHOUS SEDIMENT,UR FEW AMOR URATES /LPF; BACTERIA,URINE TRACE /HPF; HYALINE CASTS, URINE 0-2 /LPF; SQUAMOUS EPITHELIAL CELL,UR RARE /HPF; WBC,URINE 0-2 /HPF
--- NOTE | 2020-04-19 18:00 | ED GI ---
General Chief Complaint: Abdominal/GI Problems Stated Complaint: VOMITING/DIARRHEA WEAKNESS/DIZZY Nursing Triage Note: Pt c/o severe vomiting and diarrhea today. Pt reports at least six episodes of each. Sepsis Screen: No Definite Risk Source of Information: Patient History of Present Illness Date Seen by Provider: Apr 19, 2020 Time Seen by Provider: 17:10 Initial Comments PT ARRIVES VIA POV FROM HOME PT C/O NAUSEA/VOMITING/DIARRHEA AND STOMACH CRAMPING SINCE YESTERDAY PT STATES ABDOMINAL CRAMPING IS JUST BEFORE HE HAS DIARRHEA, THEN PAIN GOES AWAY NO FEVER VOIDING A NORMAL AMOUNT PT SEEN HERE THIS AM FOR SAME, HAD FULL WORK UP, INCLUDING CT SCAN. SEE CHART FOR DETAILS OF THAT VISIT. PT DID NOT HAVE ANY VOMITING OR DIARRHEA DURING ER STAY, AND PT FELT MUCH BETTER, AND WAS TOLERATING WATER AND ICE CHIPS PRIOR TO DISMISSAL PT STATES HE FELT GOOD UNTIL LATER THIS AFTERNOON, AND SYMPTOMS RETURNED STATES HE HAS VOMITED X 6-8 THIS AFTERNOON AND HAD DIARRHEA X 6-8 THIS AFTERNOON NO KNOWN EXPOSURE TO COVID-19 NO RESPIRATORY SYMPTOMS NO LOSS OF TASTE OR SMELL. NO HEADACHE NO BODY ACHES NO SHORTNESS OF BREATH PCP: [facility] Allergies and Home Medications Allergies Coded Allergies: Penicillins (Verified Allergy, Unknown, Anaphylaxis, 02/27/20) promethazine (Verified Allergy, Unknown, Anaphylaxis, 02/27/20) ramelteon (Verified Allergy, Unknown, Shortness of Breath, 02/27/20) "Severe bronchospasm" sotalol (Verified Allergy, Unknown, Shortness of Breath, 02/27/20) "Severe bronchospasm" Home Medications Albuterol Sulfate 18 Gm Hfa.aer.ad, 2 PUFF INH Q4H PRN for SHORTNESS OF BREATH, (Reported) Antiox#10/Om3/Dha/Epa/Lut/Zeax 1 Each Capsule, 1 EACH PO DAILY, (Reported) Apixaban 5 Mg Tablet, 5 MG PO 0700,1700, (Reported) Aspirin 81 Mg Tablet.dr, 162 MG PO HS, (Reported) TAKES 2 (81MG) TABS Atorvastatin Calcium 20 Mg Tablet, 20 MG PO HS, (Reported) Calcium Carbonate/Vitamin D3 1 Each Tablet, 1 EACH PO DAILY, (Reported) Empagliflozin 10 Mg Tablet, 10 MG PO DAILY, (Reported) Fluticasone/Umeclidin/Vilanter 1 Each Blst.w.dev, 1 PUFF INH HS, (Reported) Furosemide 20 Mg Tablet, 20 MG PO DAILY, (Reported) Insulin Aspart 300 Units/3 Ml Solution, 22 UNITS SQ DAILY BEFORE BREAKFAST, (Reported) SLIDING SCALE TO USE IN ADDITION TO 22 UNITS BEFORE BREAKFAST: 150-199=2 UNITS 200-249=4 UNITS 250-299=7 UNITS 300-349=10 UNITS 350 AND ABOVE =14 UNITS Insulin Aspart 300 Units/3 Ml Solution, 18 UNITS SQ 1200 BEFORE LUNCH, ( Reported) SLIDING SCALE TO USE IN ADDITION TO 18 UNITS BEFORE LUMNCH: 150-199=2 UNITS 200-249=4 UNITS 250-299=7 UNITS 300-349=10 UNITS 350 AND ABOVE =14 UNITS Insulin Aspart 300 Units/3 Ml Solution, 24 UNITS SQ 1700 BEFORE DINNER, (Reported) SLIDING SCALE TO USE IN ADDITION TO 24 UNITS BEFORE DINNER: 150-199=2 UNITS 200-249=4 UNITS 250-299=7 UNITS 300-349=10 UNITS 350 AND ABOVE =14 UNITS Insulin Detemir 100 Unit/1 Ml Insuln.pen, 70 UNITS SQ DAILY, (Reported) Insulin Detemir 100 Unit/1 Ml Insuln.pen, 80 UNIT SQ HS, (Reported) Lorazepam 0.5 Mg Tablet, 0.5-1 MG PO DAILY PRN for MUSCLE SPASMS, (Reported) Losartan Potassium 25 Mg Tablet, 25 MG PO DAILY, (Reported) Magnesium Carbonate/Al Hydrox 1 Each Tab.chew, 1 EACH PO UD PRN for HEARTBURN, (Reported) Metoprolol Tartrate 50 Mg Tablet, 50 MG PO 0700,1700, (Reported) Multivit-Min/FA/Lycopene/Lut 1 Each Tablet, 1 EACH PO DAILY, (Reported) Nitroglycerin 0.4 Mg Tab.subl, 0.4 MG SL UD PRN for CHEST PAIN (ANGINA), (Reported) Omeprazole 40 Mg Capsule.dr, 40 MG PO 0700,1700, (Reported) Potassium Chloride 8 Meq Tablet.er, 16 MEQ PO DAILY, (Reported) TAKES 2 (8MEQ) TABS Sertraline HCl 50 Mg Tablet, 50 MG PO 1700, (Reported) Zolpidem Tartrate 10 Mg Tablet, 10 MG PO HS, (Reported) Patient Home Medication List Home Medication List Reviewed: Yes Review of Systems Review of Systems Constitutional: no symptoms reported; No chills, No diaphoresis, No dizziness, No fever, No malaise, No weakness EENTM: No Symptoms Reported Respiratory: No Symptoms Reported; Denies Cough, Denies Shortness of Air Cardiovascular: No Symptoms Reported; Denies Chest Pain Gastrointestinal: See HPI, Abdominal Pain, Diarrhea, Nausea, Poor Appetite, Poor Fluid Intake, Vomiting Genitourinary: No Symptoms Reported Musculoskeletal: no symptoms reported Skin: no symptoms reported Psychiatric/Neurological: No Symptoms Reported Endocrine: No Symptoms Reported Hematologic/Lymphatic: No Symptoms Reported Past Btzqjdm-Kbhslc-Ofeuhh Hx Patient Social History Alcohol Use: Denies Use Recreational Drug Use: No 2nd Hand Smoke Exposure: No Recent Foreign Travel: No Contact w/Someone Who Travel: No Recent Infectious Disease Expo: No Recent Hopitalizations: No Seasonal Allergies Seasonal Allergies: No Past Medical History Surgeries: Yes (Bilat "lens" implants, Laminectomy, Ablation, Cardiac stent, ) Cardiac, Coronary Stent, Gallbladder, Orthopedic, Pacemaker, Valve Replacement Respiratory: Yes (Exertional SOA; PULMONARY FIBROSIS; SILICOSIS) Asthma, Sleep Apnea, COPD Currently Using CPAP: Yes Currently Using BIPAP: No Cardiac: Yes (SVT; AFIB & FLUTTER;STEMI 04/13/15;ABLATION; PACEMAKER; TAVR;STENTS) Atrial Fibrillation, Coronary Artery Disease, Heart Attack, High Cholesterol, Hypertension, Irregular Heartbeat, Valvular Heart Disease Neurological: Yes (BALANCE PROBLEMS) Genitourinary: No Gastrointestinal: Yes (S/P CHOLECYSTECTOMY) Endocrine: Yes (OBESITY) Diabetes, Insulin dep HEENT: Yes (BILATERAL CATARACT SURGERY) Cataract, Macular Degeneration Hearing Impairment: Hard of Hearing Cancer: No Psychosocial: No Integumentary: No Family Medical History PAST SURGICAL HISTORY: -OPEN CHOLECYSTECTOMY -CARDIAC CATHS--STENT X2--07/2007 AND HAD [place] WITH STENT 04/03/15 -DUAL CHAMBER PACEMAKER--GARCIA--RIGHT CHEST -CARDIAC ABLATION 11/05/16 -TAVR 12/23/17 -LUNG BIOPSY 02/17/19 -BILATERAL CATARACT SURGERY 03/2019 Physical Exam Vital Signs Vital Signs - First Documented 04/19/20 17:06 Temp 36.9 Pulse 76 Resp 16 B/P (MAP) 125/86 (99) Pulse Ox 97 O2 Delivery Room Air Capillary Refill : Less Than 3 Seconds Height/Weight/BMI Height: '" Weight: lbs. oz. kg; 38.00 BMI Method: General Appearance: WD/WN, no apparent distress, obese HEENT: normal ENT inspection Neck: normal inspection Respiratory: normal breath sounds, no respiratory distress, no accessory muscle use Cardiovascular: regular rate, rhythm, no murmur Gastrointestinal: soft; No guarding, No rebound; tenderness (MILD DIFFUSE TENDERNESS. ); No hernia, No mass; other (ABDOMEN OBESE/ROTUND. PT WITH EXTENSIVE SCARRING ALL ACROSS MID ABDOMEN WITH SKIN LAXITY--SITES OF INSULIN INJECTIONS) Extremities: normal inspection, no pedal edema, normal capillary refill Back: no CVA tenderness Neurologic/Psychiatric: hypertrichologist II-XII nml as tested, no motor/sensory deficits, alert, normal mood/affect, oriented x 3 Skin: normal color (FAIR SKINNED), warm/dry Focused Exam Lactate Level Lactic Acid Level Progress/Results/Core Measures Results/Orders Lab Results My Orders Orders - MARYJO MILLER DO Ed Iv/Invasive Line Start (04/19/20 17:10) Monitor-Rhythm Ecg Trace Only (04/19/20 17:10) Amylase (04/19/20 17:10) Cbc With Automated Diff (04/19/20 17:10) Comprehensive Metabolic Panel (04/19/20 17:10) Lipase (04/19/20 17:10) Magnesium (04/19/20 17:10) Ua Culture If Indicated (04/19/20 17:10) Ondansetron Injection (Zofran Injectio (04/19/20 17:15) Ed Iv/Invasive Line Start (04/19/20 17:10) Lactated Ringers (Lr 1000 Ml Iv Solution (04/19/20 17:15) Covid 19 Inhouse Test (04/19/20 17:10) Lactic Acid Analyzer (04/19/20 17:10) Procalcitonin (Pct) (04/19/20 17:10) Blood Culture (04/19/20 17:10) Manual Differential (04/19/20 17:25) Medications Given in ED Vital Signs/I&O 04/19/20 17:06 Temp 36.9 Pulse 76 Resp 16 B/P (MAP) 125/86 (99) Pulse Ox 97 O2 Delivery Room Air Blood Pressure Mean: 99 Progress Progress Note : Progress Note GIVEN IV FLUIDS, ZOFRAN NO VOMITING OR DIARRHEA DURING ER STAY Departure Communication (Admissions) 1711--SPOKE WITH DR. FORDE, HOSPITALIST [employer] TEST [employer]RE WORKER FOR [facility], ACCEPTS PT FOR ADMIT. WILL DO RAPID COVID TEST ONLY. Impression Primary Impression: Gastroenteritis Additional Impressions: Dehydration IDDM (insulin dependent diabetes mellitus) HTN (hypertension) Disposition: ADMITTED INPATIENT Condition: Stable Admissions Decision to Admit Reason: Admit from ER (General) Decision to Admit/Date: Apr 19, 2020 Time/Decision to Admit Time: 17:15 Departure-Patient Inst. Referrals: [facility] (PCP/Family) Primary Care Physician MARYJO MILLER DO Apr 19, 2020 18:00
--- NOTE | 2020-04-19 19:32 | NUR ---
attempted to call report; no answer.
--- NOTE | 2020-04-19 20:00 | NUR ---
Pt admitted to room 404-1, with an admitting diagnosis of Gastroenteritis and Dehydration, on 04/19/20 from [facility] via w/c, accompanied by staff. KAREN CARTER introduced to surroundings, call light, bed controls, phone, TV, temperature control, lights, meal times, smoking policy, visitor policy, side rail policy, bathrooms and showers. Patient Rights given to patient in the handbook.KAREN CARTER verbalizes understanding that [facility] is not responsible for the loss or damage to any personal effects or valuables that are kept in the patients possession during their hospitalization. KAREN CARETR verbalizes understanding of Interdisciplinary Patient Education. Patient and/or family were informed about the Rapid Response Team and its purpose.
[2020-04-19 20:08] VITALS: BP 123/59
[2020-04-19] MEDS ORDERED: D5 1/2 NS W/KCL 20 MEQ/L 1,000 ML IV ONE (21:10)
[2020-04-19] MEDS ORDERED: ONDANSETRON 4 MG/2 ML (SDV) Z0FRAN IVP PRN (21:30)
[2020-04-19] MEDS ORDERED: ZOLPIDEM 5 MG (AMBIEN) TAB ONE (21:59)
[2020-04-19] MEDS: ZOLPIDEM 5 MG (AMBIEN) TAB PO SCH (22:03)
[2020-04-19] MEDS: D5 1/2 NS W/KCL 20 MEQ 1000 ML IV SCH (22:04)
[2020-04-20] VITALS: BP 109/50
[2020-04-20 03:58] VITALS: BP 124/61
[2020-04-20] MEDS: D5 1/2 NS W/KCL 20 MEQ 1000 ML IV SCH ×4 (04:57→21:58)
[2020-04-20 05:18] LABS: BASOPHILS % (AUTO) 0 % (0-10); EOSINOPHILS # (AUTO) 0.5 10^3/uL (0.0-0.3); EOSINOPHILS % (AUTO) 6 % (0-10); HEMATOCRIT 37 % (40-54); HEMOGLOBIN 11.6 g/dL (13.3-17.7); LYMPHOCYTES % (AUTO) 14 % (12-44); MEAN CORPUSCULAR HEMOGLOBIN 28 pg (25-34); MEAN CORPUSCULAR HGB CONC 31 g/dL (32-36); MEAN CORPUSCULAR VOLUME 90 fL (80-99); MEAN PLATELET VOLUME 12.5 fL (9.0-12.2); MONOCYTES # (AUTO) 0.8 10^3/uL (0.0-1.0); MONOCYTES % (AUTO) 11 % (0-12); NEUTROPHILS # (AUTO) 5.1 10^3/uL (1.8-7.8); NEUTROPHILS % (AUTO) 69 % (42-75); PLATELET COUNT 103 10^3/uL (130-400); WHITE BLOOD COUNT 7.5 10^3/uL (4.3-11.0)
[2020-04-20 05:39] LABS: ALBUMIN 3.3 GM/DL (3.2-4.5); BILIRUBIN,TOTAL 0.7 MG/DL (0.1-1.0); CALCIUM 8.2 MG/DL (8.5-10.1); CREATININE SERUM 1.5 MG/DL (0.60-1.30); POTASSIUM 4.2 MMOL/L (3.6-5.0); TOTAL PROTEIN 5.6 GM/DL (6.4-8.2)
[2020-04-20] MEDS ORDERED: OMEP40CA27 PO (06:16)
[2020-04-20] MEDS ORDERED: LOPE-134 PO (06:16)
[2020-04-20] MEDS ORDERED: CLD600T PO (06:16)
[2020-04-20] MEDS ORDERED: INSU100I29 SQ ×2 (06:16)
[2020-04-20] MEDS ORDERED: POTA8TAB53 PO (06:16)
[2020-04-20] MEDS ORDERED: INSU100I14 SQ ×5 (06:16)
[2020-04-20] MEDS ORDERED: APIX5TAB PO (06:16)
[2020-04-20] MEDS ORDERED: SERT50TA9 PO (06:16)
[2020-04-20] MEDS ORDERED: ZOLP10TA PO (06:16)
[2020-04-20] MEDS ORDERED: EMPA10TA PO (06:16)
[2020-04-20] MEDS ORDERED: MULT-1136 PO (06:16)
[2020-04-20] MEDS ORDERED: MAGN1TAB31 PO (06:16)
[2020-04-20] MEDS ORDERED: FLUT1BLS3 INH (06:16)
[2020-04-20] MEDS ORDERED: ASPI-999 PO (06:16)
[2020-04-20] MEDS ORDERED: B2/V1TAB PO (06:16)
[2020-04-20] MEDS ORDERED: LORA-404 PO (06:16)
[2020-04-20] MEDS ORDERED: FURO20TA4 PO (06:16)
[2020-04-20] MEDS ORDERED: LOSA25TA41 PO (06:16)
[2020-04-20] MEDS ORDERED: ATOR20TA66 PO (06:16)
[2020-04-20] MEDS ORDERED: RT-ALBUINH IH (06:16)
[2020-04-20] MEDS ORDERED: METO50TA15 PO (06:16)
[2020-04-20] MEDS: inSUlin ASPART (NovoLOG) 1 UNIT/0.01 ML (CHARGE PER UNIT) SC SCH ×4 (06:57→21:58)
--- NOTE | 2020-04-20 07:07 | History & Physical-Hospitalist ---
History of Present Illness HPI/Chief Complaint CC: N/V/D HPI: This is an 84yoWM who presented to the ER a few hours after he left after IVF given for N/V/D who continued to have vomiting and diarrhea when returned home. Currently pt is feeling better but still having nausea and diarrhea. Stool leukocytes will be checked along with C diff. Patient denies pain. PSH appy but still has gallbladder but denies any pain. Source: patient Exam Limitations: clinical condition Date Seen 04/20/20 Time Seen by a Provider: 11:00 Attending Physician Radha De Dios DO [facility] [place] Referring Physician Date of Admission Apr 19, 2020 at 17:15 Home Medications & Allergies Home Medications Reviewed patient Home Medication Reconciliation performed by pharmacy medication reconciliations vocational rehabilitation technician and/or nursing. Patients Allergies have been reviewed. Allergies Allergies Coded Allergies Penicillins (Verified Allergy, Unknown, Anaphylaxis, 02/27/20) promethazine (Verified Allergy, Unknown, Anaphylaxis, 02/27/20) ramelteon (Verified Allergy, Unknown, Shortness of Breath, 02/27/20) "Severe bronchospasm" sotalol (Verified Allergy, Unknown, Shortness of Breath, 02/27/20) "Severe bronchospasm" Past Mzszfbs-[id number]-[id number] Hx Past Med/Social Hx: Reviewed Nursing Past Med/Soc Hx, Reviewed and Corrections made Patient Social History Marrital Status: Employed/Student: retired Alcohol Use: Denies Use Recreational Drug Use: No Smoking Status: Former Smoker 2nd Hand Smoke Exposure: No Recent Foreign Travel: No Contact w/other who traveled: No Recent Hopitalizations: No Recent Infectious Disease Expo: No Immunizations Up To Date Date of Pneumonia Vaccine: Feb 11, 2017 Date of Influenza Vaccine: Jan 16, 2020 Seasonal Allergies Seasonal Allergies: No Past Medical History Surgeries: Cardiac, Coronary Stent, Gallbladder, Orthopedic, Pacemaker, Valve Replacement Currently Using CPAP: Yes Currently Using BIPAP: No Cardiac: Atrial Fibrillation, Coronary Artery Disease, Heart Attack, High Cholesterol, Hypertension, Irregular Heartbeat, Valvular Heart Disease Endocrine: Diabetes, Insulin dep HEENT: Cataract, Macular Degeneration Hearing Impairment: Hard of Hearing Family History PAST SURGICAL HISTORY: -OPEN CHOLECYSTECTOMY -CARDIAC CATHS--STENT X2--07/2007 AND HAD TX WITH STENT 04/03/15 -DUAL CHAMBER PACEMAKER--GARCIA--RIGHT CHEST -CARDIAC ABLATION 11/05/16 -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 oz. kg; 38.00 BMI Method: General Appearance: No Apparent Distress, Chronically ill, Other (fatigued) Eyes: Right Eye Normal Inspection, Right Eye PERRL HEENT: PERRL/EOMI, Normal ENT Inspection, Pharynx Normal, Moist Mucous Membranes Neck: Full Range of Motion, Normal Inspection, Non Tender Respiratory: Chest Non Tender, Lungs Clear, Normal Breath Sounds, No Accessory Muscle Use, No Respiratory Distress Cardiovascular: Regular Rate, Rhythm, No Edema, No Gallop, No JVD, No Murmur, Normal Peripheral Pulses Gastrointestinal: Normal Bowel Sounds, No Organomegaly, No Pulsatile Mass, Non Tender, Soft Back: Normal Inspection, No CVA Tenderness, No Vertebral Tenderness Extremity: Normal Capillary Refill, Normal Inspection, Normal Range of Motion, Non Tender, No Calf Tenderness, No Pedal Edema Neurologic/Psychiatric: Alert, Oriented x3, No Motor/Sensory Deficits, Normal Mood/Affect Skin: Normal Color, Warm/Dry Lymphatic: No Adenopathy Results Results/Procedures Labs Laboratory Tests 04/19/20 17:25 04/20/20 05:08 Patient resulted labs reviewed. Assessment/Plan Admission Diagnosis Assessment: Acute gastroenteritis Diarrhea Dehydration CAD HTN HLP Plan: Supportive care Ambulate Lovenox DVT PPx Admission Status: Inpatient Order (span 2 midnights) Reason for Inpatient Admission: N/V/D failed dc from ER Diagnosis/Problems Diagnosis/Problems (1) Gastroenteritis Status: Acute (2) HTN (hypertension) Status: Acute (3) IDDM (insulin dependent diabetes mellitus) Status: Acute (4) Dehydration Status: Acute Clinical Quality Measures DVT/VTE Risk/Contraindication: Risk Factor Score Per Nursin RFS Level Per Nursing on Admit: 4+=Very High RADHA DE DIOS DO Apr 20, 2020 07:07
[2020-04-20 07:36] VITALS: BP 119/82
[2020-04-20] MEDS: FAMOTIDINE 20MG/2ML IV (PEPCID) IVP SCH (09:03)
[2020-04-20] MEDS: LACTOBACILLUS ACIDOPHILUS (PROBIOTIC) CAPSULE PO SCH ×4 (09:03→21:57)
[2020-04-20] MEDS ORDERED: ANTI1CAP2 PO (10:38)
[2020-04-20] MEDS ORDERED: MULT-1029 PO (10:38)
[2020-04-20] MEDS ORDERED: ALBU18HF2 INH (10:38)
[2020-04-20] MEDS ORDERED: NITR0.4T42 SL (10:38)
--- NOTE | 2020-04-20 10:45 | NUR ---
SPOKE WITH THE PT, CALLED HIS (MAHAD) AND WENT THRU THE EXT MED HISTORY TO COMPLETE THE MED REC PT WAS NOT ABLE TO GIVE ME ANY INFORMATION REGARDING HIS MEDICATION BUT TOLD ME TO CALL HIS SINCE SHE HAS A COMPLETE LIST AND HELPS HIM WITH HIS MEDS. MAHAD LISTED ALL THE PTS MEDS WELL WHEN/HOW HE TAKES EACH- ALL HER INFORMATION MATCHED THE EXT MED HISTORY MICHELE IS SHOWN ON THE EXT MED HISTORY HOWEVER THE PT IS NO LONGER TAKING OTC MEDS: ASPIRIN 81MG (2 TABS HS) I-CAPS CALCIUM 600 + D3 400 GAVISCON MTV 50+
[2020-04-20] MEDS ORDERED: ASPI-1238 PO (10:49)
[2020-04-20 11:30] VITALS: BP 131/80
[2020-04-20] MEDS ORDERED: ENOXAPARIN 40 MG/0.4 ML (LOVENOX) SYR SC SCH (13:00)
[2020-04-20 15:41] VITALS: BP 141/67
[2020-04-20 20:00] VITALS: BP 149/67
[2020-04-20] MEDS ORDERED: RT-ALBUTEROL SULF 2.5 MG/3 ML PRE-MIX VIAL INH PRN (21:15)
[2020-04-20] MEDS ORDERED: LORazepam 0.5 MG (ATIVAN) TABLET PO PRN (21:15)
[2020-04-20] MEDS ORDERED: NITROGLYCERIN 0.4 MG SL TABS BTL 25'S SL PRN (21:15)
[2020-04-20] MEDS: ZOLPIDEM 5 MG (AMBIEN) TAB PO SCH (21:57)
[2020-04-21] VITALS: BP 128/56
[2020-04-21 04:00] VITALS: BP 125/60
[2020-04-21] MEDS: D5 1/2 NS W/KCL 20 MEQ 1000 ML IV SCH (05:32)
[2020-04-21 05:49] LABS: BASOPHILS % (AUTO) 0 % (0-10); EOSINOPHILS # (AUTO) 0.2 10^3/uL (0.0-0.3); EOSINOPHILS % (AUTO) 5 % (0-10); HEMATOCRIT 34 % (40-54); LYMPHOCYTES # (AUTO) 1.1 10^3/uL (1.0-4.0); LYMPHOCYTES % (AUTO) 25 % (12-44); MEAN CORPUSCULAR HEMOGLOBIN 29 pg (25-34); MEAN CORPUSCULAR HGB CONC 32 g/dL (32-36); MEAN CORPUSCULAR VOLUME 89 fL (80-99); MEAN PLATELET VOLUME 12.2 fL (9.0-12.2); MONOCYTES # (AUTO) 0.7 10^3/uL (0.0-1.0); MONOCYTES % (AUTO) 17 % (0-12); NEUTROPHILS # (AUTO) 2.3 10^3/uL (1.8-7.8); NEUTROPHILS % (AUTO) 53 % (42-75); PLATELET COUNT 76 10^3/uL (130-400); WHITE BLOOD COUNT 4.3 10^3/uL (4.3-11.0)
[2020-04-21 06:06] LABS: ALBUMIN 3.1 GM/DL (3.2-4.5)
[2020-04-21 06:07] LABS: POTASSIUM 4.1 MMOL/L (3.6-5.0)
[2020-04-21 06:08] LABS: CALCIUM 8.2 MG/DL (8.5-10.1)
[2020-04-21 06:09] LABS: TOTAL PROTEIN 5.1 GM/DL (6.4-8.2)
[2020-04-21 06:11] LABS: BILIRUBIN,TOTAL 0.6 MG/DL (0.1-1.0)
[2020-04-21 06:13] LABS: CREATININE SERUM 1.28 MG/DL (0.60-1.30)
[2020-04-21 06:16] LABS: MAGNESIUM 1.7 MG/DL (1.6-2.4)
[2020-04-21] MEDS: inSUlin ASPART (NovoLOG) 1 UNIT/0.01 ML (CHARGE PER UNIT) SC SCH ×2 (06:35→12:02)
[2020-04-21] MEDS ORDERED: meTOprolol TARTRATE 50 MG (LOPRESSOR) TAB PO SCH (07:00)
[2020-04-21] MEDS ORDERED: PANTOPRAZOLE 20 MG TABLET (PROTONIX) PO SCH (07:00)
[2020-04-21] MEDS ORDERED: NON-FORMULARY MEDICATION 1 EA EA (Omeprazole 40 MG) PO SCH (07:00)
[2020-04-21] MEDS ORDERED: APIXABAN 5 MG (ELIQUIS) TABLET PO SCH (07:00)
[2020-04-21 08:10] VITALS: BP 137/61
[2020-04-21 08:45] VITALS: BP 130/66
[2020-04-21] MEDS: FAMOTIDINE 20MG/2ML IV (PEPCID) IVP SCH (09:23)
[2020-04-21] MEDS: LACTOBACILLUS ACIDOPHILUS (PROBIOTIC) CAPSULE PO SCH ×2 (09:23→12:02)
[2020-04-21 11:25] VITALS: BP 136/64
--- NOTE | 2020-04-21 11:35 | Discharge Summary ---
Discharge Summary Hospital Course Was the Problem List Reviewed?: Yes Problems/Dx: (1) Gastroenteritis Status: Acute (2) HTN (hypertension) Status: Acute (3) IDDM (insulin dependent diabetes mellitus) Status: Acute (4) Dehydration Status: Acute Hospital Course Date of Admission: Apr 19, 2020 at 17:15 Admission Diagnosis : Family Physician/Provider: [place] Date of Discharge: 04/21/20 Discharge Diagnosis: gastroenteritis, BERENICE Hospital Course: Short course after admitted after failed DC from ER earlier in the day for N/V/D. C diff was negative and he was maintained on supportive IVF and ultimately improved with creatinine improvement and was DC home. Labs and Pending Lab Test: Laboratory Tests 04/20/20 16:34: Glucometer 226H 04/20/20 21:41: Glucometer 178H 04/21/20 05:20: White Blood Count 4.3, Red Blood Count 3.85L, Hemoglobin 11.0L, Hematocrit 34L, Mean Corpuscular Volume 89, Mean Corpuscular Hemoglobin 29, Mean Corpuscular Hemoglobin Concent 32, Red Cell Distribution Width 15.2H, Platelet Count 76L, Mean Platelet Volume 12.2, Immature Granulocyte % (Auto) 0, Neutrophils (%) (Auto) 53, Lymphocytes (%) (Auto) 25, Monocytes (%) (Auto) 17H, Eosinophils (%) (Auto) 5, Basophils (%) (Auto) 0, Neutrophils # (Auto) 2.3, Lymphocytes # (Auto) 1.1, Monocytes # (Auto) 0.7, Eosinophils # (Auto) 0.2, Basophils # (Auto) 0.0, Immature Granulocyte # (Auto) 0.0 04/21/20 05:30: Sodium Level 139, Potassium Level 4.1, Chloride Level 114H, Carbon Dioxide Level 19L, Anion Gap 6, Blood Urea Nitrogen 19H, Creatinine 1.28, Estimat Glomerular Filtration Rate 54, BUN/Creatinine Ratio 15, Glucose Level 227H, Calcium Level 8.2L, Corrected Calcium 8.9, Magnesium Level 1.7, Total Bilirubin 0.6, Aspartate Amino Transf (AST/SGOT) 17, Alanine Aminotransferase (ALT/SGPT) 27, Alkaline Phosphatase 79, Total Protein 5.1L, Albumin 3.1L 04/21/20 05:47: Glucometer 219H Microbiology 04/20/20 C. difficile [facility] Antigen & Toxins - Final, Complete 04/19/20 Blood Culture - Preliminary, Resulted No growth Home Meds Active Reported Aspirin EC (Aspirin) 81 Mg Tablet.dr 162 Mg PO HS TAKES 2 (81MG) TABS Ventolin Hfa (Albuterol Sulfate) 18 Gm Hfa.aer.ad 2 Puff INH Q4H PRN Nitroglycerin 0.4 Mg Tab.subl 0.4 Mg SL UD PRN Centrum Silver Tablet (Multivit-Min/FA/Lycopene/Lut) 1 Each Tablet 1 Each PO DAILY I-Caps with Lutein-Mckinney 3 Sfg (Antiox#10/Om3/Dha/Epa/Lut/Zeax) 1 Each Capsule 1 Each PO DAILY Gaviscon Es Tablet Chew (Magnesium Carbonate/Al Hydrox) 1 Each Tab.chew 1 Each PO UD PRN Calcium 600 + Vit D3 400 Tab (Calcium Carbonate/Vitamin D3) 1 Each Tablet 1 Each PO DAILY Novolog Flexpen (Insulin Aspart) 300 Units/3 Ml Solution 24 Units SQ 1700 BEFORE DINNER SLIDING SCALE TO USE IN ADDITION TO 24 UNITS BEFORE DINNER: 150-199=2 UNITS 200-249=4 UNITS 250-299=7 UNITS 300-349=10 UNITS 350 AND ABOVE =14 UNITS Novolog Flexpen (Insulin Aspart) 300 Units/3 Ml Solution 18 Units SQ 1200 BEFORE LUNCH SLIDING SCALE TO USE IN ADDITION TO 18 UNITS BEFORE LUMNCH: 150-199=2 UNITS 200-249=4 UNITS 250-299=7 UNITS 300-349=10 UNITS 350 AND ABOVE =14 UNITS Novolog Flexpen (Insulin Aspart) 300 Units/3 Ml Solution 22 Units SQ DAILY BEFORE BREAKFAST SLIDING SCALE TO USE IN ADDITION TO 22 UNITS BEFORE BREAKFAST: 150-199=2 UNITS 200-249=4 UNITS 250-299=7 UNITS 300-349=10 UNITS 350 AND ABOVE =14 UNITS Metoprolol Tartrate 50 Mg Tablet 50 Mg PO 0700,1700 Ativan (Lorazepam) 0.5 Mg Tablet 0.5-1 Mg PO DAILY PRN Atorvastatin Calcium 20 Mg Tablet 20 Mg PO HS Jardiance (Empagliflozin) 10 Mg Tablet 10 Mg PO DAILY K-Tab ER (Potassium Chloride) 8 Meq Tablet.er 16 Meq PO DAILY TAKES 2 (8MEQ) TABS Losartan Potassium 25 Mg Tablet 25 Mg PO DAILY Sertraline HCl 50 Mg Tablet 50 Mg PO 1700 Levemir Flextouch (Insulin Detemir) 100 Unit/1 Ml Insuln.pen 80 Unit SQ HS Levemir Flextouch (Insulin Detemir) 100 Unit/1 Ml Insuln.pen 70 Units SQ DAILY Ambien (Zolpidem Tartrate) 10 Mg Tablet 10 Mg PO HS Furosemide 20 Mg Tablet 20 Mg PO DAILY Eliquis (Apixaban) 5 Mg Tablet 5 Mg PO 0700,1700 Trelegy Ellipta 100-62.5-25 (Fluticasone/Umeclidin/Vilanter) 1 Each Blst.w.dev 1 Puff INH HS Omeprazole 40 Mg Capsule.dr 40 Mg PO 0700,1700 Assessment/Pt Instructions PCP this week Discharge Planning: <30 minutes discharge planning Discharge Instructions Discharge Diet: No Restrictions Activity as Tolerated: Yes Discharge Physical Examination Vital Signs Vital Signs Date Time Temp Pulse Resp B/P (MAP) Pulse Ox O2 Delivery O2 Flow Rate FiO2 04/21/20 08:10 36.4 72 20 137/61 (86) 96 Room Air General Appearance: No Apparent Distress, WD/WN Allergies: Coded Allergies: Penicillins (Verified Allergy, Unknown, Anaphylaxis, 02/27/20) promethazine (Verified Allergy, Unknown, Anaphylaxis, 02/27/20) ramelteon (Verified Allergy, Unknown, Shortness of Breath, 02/27/20) "Severe bronchospasm" sotalol (Verified Allergy, Unknown, Shortness of Breath, 02/27/20) "Severe bronchospasm" Discharge Summary Date of Admission Apr 19, 2020 at 17:15 Date of Discharge Discharge Date: Apr 21, 2020 Admission Diagnosis Assessment: Acute gastroenteritis Diarrhea Dehydration CAD HTN HLP Plan: Supportive care Ambulate Lovenox DVT PPx Discharge Diagnosis (1) Gastroenteritis Status: Acute (2) HTN (hypertension) Status: Acute (3) IDDM (insulin dependent diabetes mellitus) Status: Acute (4) Dehydration Status: Acute Clinical Quality Measures DVT/VTE Risk/Contraindication: Risk Factor Score Per Nursin RFS Level Per Nursing on Admit: 4+=Very High EDEN FORDE DO Apr 21, 2020 11:34
--- NOTE | 2020-04-21 13:30 | NUR ---
KAREN CARTER demonstrates understanding of discharge instructions and accurately returns instructions upon questioning. Copy of Post-Discharge Instructions and Medication Discharge Instructions given to . KAREN CARTER is/is not able to manage continuing needs after discharge. Patients belongings returned to PATIENT. Skin dry and intact; no breakdown noted. Patient discharged from 404-1 on at . KAREN CARTER left floor via W/C, accompanied by PCT TO ED ENTRANCE WHERE HIS WAS WAITING FOR HIM IN PRIVATE VEHICLE.
[2020-04-21] MEDS ORDERED: SERTRALINE 50 MG (ZOLOFT) TABLET PO SCH (17:00)
[2020-04-21] MEDS ORDERED: NON-FORMULARY MEDICATION 1 EA EA (Fluticasone/Umeclidin/Vilanter (Trelegy Ellipta 100-62.5 INH SCH (21:00)
[2020-04-21] MEDS ORDERED: ASPIRIN E.C. 81 MG (ECOTRIN) TAB PO SCH (21:00)
[2020-04-21] MEDS ORDERED: NON-FORMULARY MEDICATION 1 EA EA (Zolpidem Tartrate (Ambien) 10 MG) PO SCH (21:00)
== END 2020-04-21 13:30 | disposition home or self-care (01) | DRG 392 ==
LOC: EDUNIT# 17:04 → ER 17:06 → 4TH 17:15
PROVIDERS: ADMIT Internal Medicine; ATTEND Internal Medicine
DX: K52.9 Noninfective gastroenteritis and colitis, unspecified (principal); E86.0 Dehydration; I25.10 Atherosclerotic heart disease of native coronary artery without angina pectoris; I10 Essential (primary) hypertension; Z20.828 Contact with and (suspected) exposure to other viral communicable diseases; N28.9 Disorder of kidney and ureter, unspecified; E78.5 Hyperlipidemia, unspecified; E11.9 Type 2 diabetes mellitus without complications; Z88.0 Allergy status to penicillin; Z95.5 Presence of coronary angioplasty implant and graft; J44.9 Chronic obstructive pulmonary disease, unspecified; I48.91 Unspecified atrial fibrillation; I25.2 Old myocardial infarction; E78.00 Pure hypercholesterolemia, unspecified; E66.9 Obesity, unspecified; Z90.49 Acquired absence of other specified parts of digestive tract
CPT/HCPCS: 36415; 80053; 81000; 82150; 82962; 83605; 83690; 83735; 84145; 85007; 85025; 85027; 87040; 87324; 87449; 87635; 93041

== ENCOUNTER 2020-06-23 07:02 | Emergency (ER) | payer MEDICARE ==
[~2020-06-23] VITALS: Ht 182.8 cm; Wt 117.0 kg
[~2020-06-23 07:02] MED LIST changes: +ALBU18HF2 INH; +ANTI1CAP2 PO; +APIX5TAB PO; +ASPI-1238 PO; +ASPI-999 PO; +ATOR20TA66 PO; +B2/V1TAB PO; +CLD600T PO; +EMPA10TA PO; +FLUT1BLS3 INH; +FURO20TA4 PO; +INSU100I14 SQ; +INSU100I29 SQ; +LOPE-134 PO; +LORA-404 PO; +LOSA25TA41 PO; +MAGN1TAB31 PO; +METO50TA15 PO; +MULT-1029 PO; +MULT-1136 PO; +NITR0.4T42 SL; +OMEP40CA27 PO; +POTA8TAB54 PO; +RT-ALBUINH IH; +SERT-413 PO; +ZOLP10TA PO
[2020-06-23] MEDS ORDERED: ONDANSETRON 4 MG/2 ML (SDV) Z0FRAN IVP ONE (07:15)
[2020-06-23] MEDS ORDERED: LACTATED RINGERS 1,000 ML IV STA (07:15)
[2020-06-23] MEDS ORDERED: FAMOTIDINE 20MG/2ML IV (PEPCID) IV STA (07:15)
--- NOTE | 2020-06-23 07:15 | ED GI ---
General Stated Complaint: ILLNESS Source of Information: Patient Exam Limitations: No Limitations History of Present Illness Date Seen by Provider: Jun 23, 2020 Time Seen by Provider: 07:10 Initial Comments 84-year-old male presents with left lower abdominal pain and diarrhea. Patient reports a significant amount of diarrhea and mild pain in the left lower quadrant since 9 PM last night. He reports a little bit of nausea and vomiting. Patient has a history of diverticulitis and states this is similar to his previous episodes. He denies any cough, chest pain, fever, chills, flank pain or urinary symptoms. Allergies and Home Medications Allergies Coded Allergies: Penicillins (Verified Allergy, Unknown, Anaphylaxis, 02/27/20) promethazine (Verified Allergy, Unknown, Anaphylaxis, 02/27/20) ramelteon (Verified Allergy, Unknown, Shortness of Breath, 02/27/20) "Severe bronchospasm" sotalol (Verified Allergy, Unknown, Shortness of Breath, 02/27/20) "Severe bronchospasm" Home Medications Albuterol Sulfate 18 Gm Hfa.aer.ad, 2 PUFF INH Q4H PRN for SHORTNESS OF BREATH, (Reported) Antiox#10/Om3/Dha/Epa/Lut/Zeax 1 Each Capsule, 1 EACH PO DAILY, (Reported) Apixaban 5 Mg Tablet, 5 MG PO 0700,1700, (Reported) Aspirin 81 Mg Tablet.dr, 162 MG PO HS, (Reported) TAKES 2 (81MG) TABS Atorvastatin Calcium 20 Mg Tablet, 20 MG PO HS, (Reported) Calcium Carbonate/Vitamin D3 1 Each Tablet, 1 EACH PO DAILY, (Reported) Empagliflozin 10 Mg Tablet, 10 MG PO DAILY, (Reported) Fluticasone/Umeclidin/Vilanter 1 Each Blst.w.dev, 1 PUFF INH HS, (Reported) Furosemide 20 Mg Tablet, 20 MG PO DAILY, (Reported) Insulin Aspart 300 Units/3 Ml Solution, 22 UNITS SQ DAILY BEFORE BREAKFAST, (Reported) SLIDING SCALE TO USE IN ADDITION TO 22 UNITS BEFORE BREAKFAST: 150-199=2 UNITS 200-249=4 UNITS 250-299=7 UNITS 300-349=10 UNITS 350 AND ABOVE =14 UNITS Insulin Aspart 300 Units/3 Ml Solution, 18 UNITS SQ 1200 BEFORE LUNCH, (Reported) SLIDING SCALE TO USE IN ADDITION TO 18 UNITS BEFORE LUMNCH: 150-199=2 UNITS 200-249=4 UNITS 250-299=7 UNITS 300-349=10 UNITS 350 AND ABOVE =14 UNITS Insulin Aspart 300 Units/3 Ml Solution, 24 UNITS SQ 1700 BEFORE DINNER, (Reported) SLIDING SCALE TO USE IN ADDITION TO 24 UNITS BEFORE DINNER: 150-199=2 UNITS 200-249=4 UNITS 250-299=7 UNITS 300-349=10 UNITS 350 AND ABOVE =14 UNITS Insulin Detemir 100 Unit/1 Ml Insuln.pen, 70 UNITS SQ DAILY, (Reported) Insulin Detemir 100 Unit/1 Ml Insuln.pen, 80 UNIT SQ HS, (Reported) Lorazepam 0.5 Mg Tablet, 0.5-1 MG PO DAILY PRN for MUSCLE SPASMS, (Reported) Losartan Potassium 25 Mg Tablet, 25 MG PO DAILY, (Reported) Magnesium Carbonate/Al Hydrox 1 Each Tab.chew, 1 EACH PO UD PRN for HEARTBURN, (Reported) Metoprolol Tartrate 50 Mg Tablet, 50 MG PO 0700,1700, (Reported) Multivit-Min/FA/Lycopene/Lut 1 Each Tablet, 1 EACH PO DAILY, (Reported) Nitroglycerin 0.4 Mg Tab.subl, 0.4 MG SL UD PRN for CHEST PAIN (ANGINA), (Reported) Omeprazole 40 Mg Capsule.dr, 40 MG PO 0700,1700, (Reported) Potassium Chloride 8 Meq Tablet.er, 16 MEQ PO DAILY, (Reported) TAKES 2 (8MEQ) TABS Sertraline HCl 50 Mg Tablet, 50 MG PO 1700, (Reported) Zolpidem Tartrate 10 Mg Tablet, 10 MG PO HS, (Reported) Patient Home Medication List Home Medication List Reviewed: Yes Review of Systems Review of Systems Constitutional: No chills, No dizziness, No fever EENTM: No Symptoms Reported Respiratory: Denies Cough, Denies Shortness of Air Cardiovascular: Denies Chest Pain, Denies Irregular Heart Rate Gastrointestinal: Abdominal Pain, Diarrhea, Nausea, Vomiting Genitourinary: No Symptoms Reported Musculoskeletal: no symptoms reported Skin: no symptoms reported Psychiatric/Neurological: No Symptoms Reported Endocrine: No Symptoms Reported Hematologic/Lymphatic: No Symptoms Reported Past Mbgvjcu-Syzmiy-Ihxqbl Hx Past Med/Social Hx: Reviewed Nursing Past Med/Soc Hx Patient Social History 2nd Hand Smoke Exposure: No Recent Hopitalizations: No Immunizations Up To Date Date of Pneumonia Vaccine: Feb 11, 2017 Date of Influenza Vaccine: Jan 16, 2020 Seasonal Allergies Seasonal Allergies: No Past Medical History Surgeries: Yes (Bilat "lens" implants, Laminectomy, Ablation, Cardiac stent, ) Cardiac, Coronary Stent, Gallbladder, Orthopedic, Pacemaker, Valve Replacement Respiratory: Yes (Exertional SOA; PULMONARY FIBROSIS; SILICOSIS) Asthma, Sleep Apnea, COPD Currently Using CPAP: Yes Currently Using BIPAP: No Cardiac: Yes (SVT; AFIB & FLUTTER;STEMI 04/13/15;ABLATION; PACEMAKER; TAVR;STENTS) Atrial Fibrillation, Coronary Artery Disease, Heart Attack, High Cholesterol, Hypertension, Irregular Heartbeat, Valvular Heart Disease Neurological: Yes (BALANCE PROBLEMS) Genitourinary: No Gastrointestinal: Yes (S/P CHOLECYSTECTOMY) Endocrine: Yes (OBESITY) Diabetes, Insulin dep HEENT: Yes (BILATERAL CATARACT SURGERY) Cataract, Macular Degeneration Hearing Impairment: Hard of Hearing Cancer: No Psychosocial: No Integumentary: No Family Medical History PAST SURGICAL HISTORY: -OPEN CHOLECYSTECTOMY -CARDIAC CATHS--STENT X2--07/2007 AND HAD WI WITH STENT 04/03/15 -DUAL CHAMBER PACEMAKER--GARCIA--RIGHT CHEST -CARDIAC ABLATION 11/05/16 -TAVR 12/23/17 -LUNG BIOPSY 02/17/19 -BILATERAL CATARACT SURGERY 03/2019 Physical Exam Vital Signs Vital Signs - First Documented 06/23/20 07:04 Temp 36.2 Pulse 74 Resp 20 B/P (MAP) 127/83 (98) Pulse Ox 97 O2 Delivery Room Air Capillary Refill : Height/Weight/BMI Height: '" Weight: lbs. oz. kg; 38.00 BMI Method: General Appearance: mild distress HEENT: PERRL/EOMI Neck: full range of motion Respiratory: lungs clear, normal breath sounds Cardiovascular: normal peripheral pulses, regular rate, rhythm Gastrointestinal: soft; No guarding, No rebound; tenderness (Mild tenderness mid lower and left lower quadrant) Extremities: normal range of motion, non-tender Neurologic/Psychiatric: alert, normal mood/affect, oriented x 3 Skin: normal color, warm/dry Focused Exam Lactate Level 06/23/20 07:30: Lactic Acid Level 0.83 Lactic Acid Level Laboratory Tests Test 06/23/20 07:30 Lactic Acid Level 0.83 MMOL/L (0.50-2.00) Progress/Results/Core Measures Results/Orders Lab Results Laboratory Tests Test 06/23/20 07:09 06/23/20 07:30 06/23/20 08:00 Range/Units White Blood Count 14.8 H 4.3-11.0 10^3/uL Red Blood Count 4.74 4.30-5.52 10^6/uL Hemoglobin 13.5 13.3-17.7 g/dL Hematocrit 42 40-54 % Mean Corpuscular Volume 89 80-99 fL Mean Corpuscular Hemoglobin 29 25-34 pg Mean Corpuscular Hemoglobin Concent 32 32-36 g/dL Red Cell Distribution Width 15.8 H 10.0-14.5 % Platelet Count 137 130-400 10^3/uL Mean Platelet Volume 12.8 H 9.0-12.2 fL Immature Granulocyte % (Auto) 1 % Neutrophils (%) (Auto) 84 H 42-75 % Lymphocytes (%) (Auto) 9 L 12-44 % Monocytes (%) (Auto) 4 0-12 % Eosinophils (%) (Auto) 2 0-10 % Basophils (%) (Auto) 0 0-10 % Neutrophils # (Auto) 12.4 H 1.8-7.8 10^3/uL Lymphocytes # (Auto) 1.3 1.0-4.0 10^3/uL Monocytes # (Auto) 0.6 0.0-1.0 10^3/uL Eosinophils # (Auto) 0.3 0.0-0.3 10^3/uL Basophils # (Auto) 0.0 0.0-0.1 10^3/uL Immature Granulocyte # (Auto) 0.1 0.0-0.1 10^3/uL Neutrophils % (Manual) 77 % Lymphocytes % (Manual) 9 % Monocytes % (Manual) 4 % Eosinophils % (Manual) 1 % Basophils % (Manual) 0 % Band Neutrophils 9 % Anisocytosis SLIGHT Sodium Level 141 135-145 MMOL/L Potassium Level 3.9 3.6-5.0 MMOL/L Chloride Level 107 98-107 MMOL/L Carbon Dioxide Level 21 21-32 MMOL/L Anion Gap 13 5-14 MMOL/L Blood Urea Nitrogen 30 H 7-18 MG/DL Creatinine 1.33 H 0.60-1.30 MG/DL Estimat Glomerular Filtration Rate 51 BUN/Creatinine Ratio 23 Glucose Level 230 H 70-105 MG/DL Calcium Level 9.0 8.5-10.1 MG/DL Corrected Calcium 9.2 8.5-10.1 MG/DL Total Bilirubin 0.7 0.1-1.0 MG/DL Aspartate Amino Transf (AST/SGOT) 17 5-34 U/L Alanine Aminotransferase (ALT/SGPT) 18 0-55 U/L Alkaline Phosphatase 135 40-136 U/L C-Reactive Protein High Sensitivity 0.43 0.00-0.50 MG/DL Total Protein 6.5 6.4-8.2 GM/DL Albumin 3.7 3.2-4.5 GM/DL Lipase 18 8-78 U/L Lactic Acid Level 0.83 0.50-2.00 MMOL/L Urine Color YELLOW Urine Clarity CLEAR Urine pH 5.0 5-9 Urine Specific [place] 1.025 H 1.016-1.022 Urine Protein NEGATIVE NEGATIVE Urine Glucose (UA) 3+ H NEGATIVE Urine Ketones NEGATIVE NEGATIVE Urine Nitrite NEGATIVE NEGATIVE Urine Bilirubin NEGATIVE NEGATIVE Urine Urobilinogen 0.2 < = 1.0 MG/DL Urine Leukocyte Esterase NEGATIVE NEGATIVE Urine RBC (Auto) NEGATIVE NEGATIVE Urine RBC NONE /HPF Urine WBC 0-2 /HPF Urine Squamous Epithelial Cells 5-10 /HPF Urine Crystals NONE /LPF Urine Bacteria TRACE /HPF Urine Casts NONE /LPF Urine Mucus SMALL H /LPF Urine Culture Indicated NO My Orders Orders - DASILVA,TORY L DO Cbc With Automated Diff (06/23/20 07:15) Comprehensive Metabolic Panel (06/23/20 07:15) Hs C Reactive Protein (06/23/20 07:15) Lactic Acid Analyzer (06/23/20 07:15) Lipase (06/23/20 07:15) Ua Culture If Indicated (06/23/20 07:15) Ondansetron Injection (Zofran Injectio (06/23/20 07:15) Lactated Ringers (Lr 1000 Ml Iv Solution (06/23/20 07:15) Famotidine Injection (Pepcid Injection) (06/23/20 07:15) Ed Iv/Invasive Line Start (06/23/20 07:15) Manual Differential (06/23/20 07:09) Ct Abdomen/Pelvis W (06/23/20 07:44) Iohexol Injection (Omnipaque 350 Mg/Ml 1 (06/23/20 08:15) Received Contrast (Hold Metformin- Contr (06/23/20 08:15) Sodium Chloride Flush (Catheter Flush Sy (06/23/20 08:15) Ns (Ivpb) (Sodium Chloride 0.9% Ivpb Bag (06/23/20 08:15) Chest 1 View, Ap/Pa Only (06/23/20 07:15) Medications Given in ED Current Medications Medications Dose Ordered Sig/Vickie Route Start Time Stop Time Status Last Admin Dose Admin Iohexol 100 ml ONCE ONCE IV 06/23/20 08:15 06/23/20 08:16 DC 06/23/20 08:21 100 ML Ondansetron HCl 4 mg ONCE ONCE IVP 06/23/20 07:15 06/23/20 07:17 DC 06/23/20 07:47 4 MG Sodium Chloride 10 ml NEEDED PRN IV 06/23/20 08:15 06/23/20 08:21 10 ML Sodium Chloride 100 ml ONCE ONCE IV 06/23/20 08:15 06/23/20 08:16 DC 06/23/20 08:21 80 ML Vital Signs/I&O 06/23/20 07:04 Temp 36.2 Pulse 74 Resp 20 B/P (MAP) 127/83 (98) Pulse Ox 97 O2 Delivery Room Air Progress Progress Note : Time: 09:[address] shows no acute process. Patient with slight elevation of white blood cell count, patient's slight CRP. His CMP shows a very minimal elevated BUN and creatinine but looks close to his previous visits and baseline. Patient will be discharged home with infectious diarrhea. We will give him Cipro, Flagyl, Lomotil and Zofran. He should follow-up with a primary care provider next week and return to the ER over the weekend if symptoms continue to worsen Diagnostic Imaging Diagonstic Imaging: CT Plain Films/CT/US/NM/MRI: abdomen Comments [facility] [place] NAME: KAREN CARTER [facility] REC#: [id number] PT STATUS: REG ER : 1935 PHYSICIAN: TORY DASILVA DO ADMIT DATE: 06/23/20/ER Draft Date of Exam:06/23/20 CT ABDOMEN/PELVIS W PROCEDURE: CT abdomen and pelvis with contrast. TECHNIQUE: Multiple contiguous axial images were obtained through the abdomen and pelvis after administration of intravenous contrast. Auto Exposure Controls were utilized during the CT exam to meet ALARA standards for radiation dose reduction. All CT scans use one or more of the following dose optimizing techniques: automated exposure control, MA and/or KvP adjustment based on patient size and exam type or iterative reconstruction. INDICATION: Nausea, vomiting and diarrhea. Correlation is made with prior CT from 04/19/2020. The lung bases are clear. No discrete liver mass is detected. Gallbladder appears to be surgically absent. There is no biliary ductal dilatation. Pancreas is atrophic. Spleen is unremarkable. No adrenal mass is detected. Kidneys are unremarkable. There is no hydronephrosis. Aorta is nonaneurysmal. Small and large bowel loops are normal caliber. No obstruction is identified. There are some fluid-filled small bowel loops but no focal transition point is identified to indicate obstruction. There is diverticulosis of the sigmoid but no evidence of acute diverticulitis. There is no free fluid or fluid collection. No inflammatory changes are seen. Bladder is unremarkable. Prostate contains multiple calcifications. No definite abdominal or pelvic lymphadenopathy is seen. IMPRESSION: 1. Uncomplicated diverticulosis. 2. No acute features identified in the abdomen or pelvis. Reviewed: Reviewed by Me, Reviewed/Discussed Departure Impression Primary Impression: Infectious diarrhea in adult patient Disposition: 01 HOME, SELF-CARE Condition: Stable Departure-Patient Inst. Referrals: [facility] (PCP/Family) Primary Care Physician Patient Instructions: Diarrhea, Adult ED Add. Discharge Instructions: Clear liquid diet for 24 hours, encourage you to drink plenty of fluids Follow-up with your primary care provider on Friday or Friday for recheck of today's symptoms, if symptoms worsen over the weekend please return to the ER for further evaluation Scripts Diphenoxylate HCl/Atropine (Lomotil 2.5-0.025 mg Tablet) 1 Each Tablet 1 EACH PO Q6H PRN for DIARRHEA, #10 TAB Prov: JILLIAN DASILVAR L DO 06/23/20 Ondansetron (Ondansetron Odt) 4 Mg Tab.rapdis 4 MG PO Q6H PRN for NAUSEA/VOMITING, #20 TAB 0 Refills Prov: DASILVA,TORY L DO 06/23/20 Metronidazole (Metronidazole) 500 Mg Tablet 500 MG PO BID, #14 TAB 0 Refills Prov: TORY DASILVA DO 06/23/20 Ciprofloxacin HCl (Ciprofloxacin HCl) 500 Mg Tablet 500 MG PO BID, #14 TAB Prov: TORY DASILVA DO 06/23/20 TORY DASILVA DO Jun 23, 2020 07:14
[2020-06-23 07:22] LABS: BASOPHILS % (AUTO) 0 % (0-10); EOSINOPHILS # (AUTO) 0.3 10^3/uL (0.0-0.3); EOSINOPHILS % (AUTO) 2 % (0-10); HEMATOCRIT 42 % (40-54); HEMOGLOBIN 13.5 g/dL (13.3-17.7); LYMPHOCYTES # (AUTO) 1.3 10^3/uL (1.0-4.0); LYMPHOCYTES % (AUTO) 9 % (12-44); MEAN CORPUSCULAR HEMOGLOBIN 29 pg (25-34); MEAN CORPUSCULAR HGB CONC 32 g/dL (32-36); MEAN CORPUSCULAR VOLUME 89 fL (80-99); MEAN PLATELET VOLUME 12.8 fL (9.0-12.2); MONOCYTES # (AUTO) 0.6 10^3/uL (0.0-1.0); MONOCYTES % (AUTO) 4 % (0-12); NEUTROPHILS # (AUTO) 12.4 10^3/uL (1.8-7.8); NEUTROPHILS % (AUTO) 84 % (42-75); PLATELET COUNT 137 10^3/uL (130-400); WHITE BLOOD COUNT 14.8 10^3/uL (4.3-11.0)
[2020-06-23 07:27] LABS: ALBUMIN 3.7 GM/DL (3.2-4.5); POTASSIUM 3.9 MMOL/L (3.6-5.0)
[2020-06-23 07:29] LABS: TOTAL PROTEIN 6.5 GM/DL (6.4-8.2)
[2020-06-23 07:31] LABS: BILIRUBIN,TOTAL 0.7 MG/DL (0.1-1.0)
[2020-06-23 07:33] LABS: CREATININE SERUM 1.33 MG/DL (0.60-1.30)
[2020-06-23 07:38] LABS: BAND NEUTROPHILS 9 %; NEUTROPHILS % (MANUAL) 77 %
[2020-06-23 07:39] LABS: ANISOCYTOSIS SLIGHT; BASOPHILS % (MANUAL) 0 %; EOSINOPHILS % (MANUAL) 1 %; LYMPHOCYTES % (MANUAL) 9 %; MONOCYTES % (MANUAL) 4 %
[2020-06-23 08:05] LABS: BILIRUBIN,URINE NEGATIVE (NEGATIVE); CLARITY,URINE CLEAR; COLOR,URINE YELLOW; GLUCOSE, URINE (UA) 3+ (NEGATIVE); KETONES,URINE NEGATIVE (NEGATIVE); LEUKOCYTE ESTERASE ,URINE NEGATIVE (NEGATIVE); NITRITE,URINE NEGATIVE (NEGATIVE); PROTEIN,URINE NEGATIVE (NEGATIVE)
[2020-06-23 08:12] LABS: BACTERIA,URINE TRACE /HPF; WBC,URINE 0-2 /HPF
[2020-06-23] MEDS ORDERED: CATHETER FLUSH 10 ML SYR IV PRN (08:15)
[2020-06-23] MEDS ORDERED: HOLD METFORMIN - RECEIVED CONTRAST 20 ML VIAL IV SCH (08:15)
[2020-06-23] MEDS ORDERED: NS 100 ML (IVPB) BAG IV ONE (08:15)
[2020-06-23] MEDS ORDERED: IOHEXOL 350 MG/ML 100 ML (OMNIPAQUE 350) VIAL IV ONE (08:15)
--- NOTE | 2020-06-23 08:36 | Diagnostic Imaging Report ---
INDICATION: Diarrhea and vomiting since last night, abdominal pain. FINDINGS: Frontal view of the chest unchanged from April 19. 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 Heart size and vascularity are normal. Lungs are clear. Cardiac pacemaker remains in place. IMPRESSION: There are no acute findings. Dictated by: Dictated on workstation # [id number]
--- NOTE | 2020-06-23 08:38 | Diagnostic Imaging Report ---
PROCEDURE: CT abdomen and pelvis with contrast. TECHNIQUE: Multiple contiguous axial images were obtained through the abdomen and pelvis after administration of intravenous contrast. Auto Exposure Controls were utilized during the CT exam to meet ALARA standards for radiation dose reduction. All CT scans use one or more of the following dose optimizing techniques: automated exposure control, MA and/or KvP adjustment based on patient size and exam type or iterative reconstruction. INDICATION: Nausea, vomiting and diarrhea. Correlation is made with prior CT from 04/19/2020. The lung bases are clear. No discrete liver mass is detected. Gallbladder appears to be surgically absent. There is no biliary ductal dilatation. Pancreas is atrophic. Spleen is unremarkable. No adrenal mass is detected. Kidneys are unremarkable. There is no hydronephrosis. Aorta is nonaneurysmal. Small and large bowel loops are normal caliber. No obstruction is identified. There are some fluid-filled small bowel loops but no focal transition point is identified to indicate obstruction. There is diverticulosis of the sigmoid but no evidence of acute diverticulitis. There is no free fluid or fluid collection. No inflammatory changes are seen. Bladder is unremarkable. Prostate contains multiple calcifications. No definite abdominal or pelvic lymphadenopathy is seen. IMPRESSION: 1. Uncomplicated diverticulosis. 2. No acute features identified in the abdomen or pelvis. Dictated by: Dictated on workstation # [id number]
[2020-06-23] MEDS ORDERED: DIPH1TAB PO (09:08)
[2020-06-23] MEDS ORDERED: METR-145 PO (09:08)
[2020-06-23] MEDS ORDERED: ONDA4TAB11 PO (09:08)
[2020-06-23] MEDS ORDERED: CIPR500T5 PO (09:08)
[2020-06-23 10:08] VITALS: BP 138/77
== END 2020-06-23 10:08 | disposition home or self-care (01) ==
LOC: EDUNIT# 07:02 → ER 07:04
DX: A09 Infectious gastroenteritis and colitis, unspecified (principal); I48.91 Unspecified atrial fibrillation; I25.2 Old myocardial infarction; E66.9 Obesity, unspecified; J44.9 Chronic obstructive pulmonary disease, unspecified; I10 Essential (primary) hypertension; E78.00 Pure hypercholesterolemia, unspecified; E11.9 Type 2 diabetes mellitus without complications; Z88.0 Allergy status to penicillin; Z88.8 Allergy status to other drugs, medicaments and biological substances; Z68.38 Body mass index [BMI] 38.0-38.9, adult; Z95.5 Presence of coronary angioplasty implant and graft; Z95.0 Presence of cardiac pacemaker; Z79.01 Long term (current) use of anticoagulants; Z79.82 Long term (current) use of aspirin; Z79.4 Long term (current) use of insulin
CPT/HCPCS: 36415; 71045; 74177; 80053; 81000; 83605; 83690; 85007; 85027; 86141

== ENCOUNTER 2020-09-11 09:22 | Emergency (ER) | payer MEDICARE, MEDICAID ==
[~2020-09-11] VITALS: Ht 185 cm; Wt 125.0 kg
[~2020-09-11 09:22] MED LIST changes: +CIPR500T5 PO; +DIPH1TAB PO; +METR-145 PO
--- NOTE | 2020-09-11 09:50 | ED Respiratory ---
General Chief Complaint: SOB Stated Complaint: CONGESTION,COUGH,SOB, LOW PM BATTERY Source: patient, family (GEORGIA CARRILLO MED STUDENT) History of Present Illness Date Seen by Provider: September 11, 2020 Time Seen by Provider: 09:43 Initial Comments 85 y/o male with PMHx of CHF, Afib s/p ablation, DM, COPD, asthma, silicosis and recent pneumonia who presents for SOB, cough, congestion and lethargy onset 1 month ago; Patient's is primary historian. states patient was seen by Dr. Nicole 1 month ago for current symptoms, was put on Zithro with subsequent course of Doxycycline which he completed yesterday with no relief. Patient has been steadily feeling more SOB and weak, today refusing to go to his PT appointment which prompted to bring him to the ED. Currently complains of congestion, cough with phlegm production, decreased appetite and fluid intake as well as pain on palpation of L lower ribs. 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 Patient has a series of falls over the last 3 months, most recent of which occurred between 1-2 months ago when he broke bilateral ribs 7-9. Patient's O2 sat has consistently been in the 90s at home. COVID test negative at start of symptoms, has since has completed his Moderna vaccination. reports pacemaker has low battery and requests for it to be checked. Denies fever, chills, chest pain at rest, palpitations, nausea, vomit ing, diarrhea, dizziness, lightheadedness or any other pain at this time. (GEORGIA CARRILLO MED STUDENT) Allergies and Home Medications Allergies Coded Allergies: Penicillins (Verified Allergy, Unknown, Anaphylaxis, 02/27/20) promethazine (Verified Allergy, Unknown, Anaphylaxis, 02/27/20) ramelteon (Verified Allergy, Unknown, Shortness of Breath, 02/27/20) "Severe bronchospasm" sotalol (Verified Allergy, Unknown, Shortness of Breath, 02/27/20) "Severe bronchospasm" Home Medications Acetaminophen 325 Mg Tablet, 650 MG PO Q6H PRN for PAIN-MODERATE (5-7) Prescribed by: MERCEDES SPARROW on 09/12/20 0945 Albuterol Sulfate 18 Gm Hfa.aer.ad, 2 PUFF INH Q4H PRN for SHORTNESS OF BREATH, (Reported) Antiox#10/Om3/Dha/Epa/Lut/Zeax 1 Each Capsule, 1 EACH PO DAILY, (Reported) Apixaban 5 Mg Tablet, 5 MG PO 0700,1700, (Reported) Aspirin 81 Mg Tablet.dr, 162 MG PO HS, (Reported) TAKES 2 (81MG) TABS Atorvastatin Calcium 20 Mg Tablet, 20 MG PO HS, (Reported) Calcium Carbonate/Vitamin D3 1 Each Tablet, 1 EACH PO DAILY, (Reported) Diphenoxylate HCl/Atropine 1 Each Tablet, 1 EACH PO Q6H PRN for DIARRHEA Prescribed by: TORY DASILVA on 06/23/20 0908 Empagliflozin 10 Mg Tablet, 10 MG PO DAILY, (Reported) Fluticasone/Umeclidin/Vilanter 1 Each Blst.w.dev, 1 PUFF INH HS, (Reported) Furosemide 20 Mg Tablet, 20 MG PO DAILY, (Reported) Insulin Aspart 300 Units/3 Ml Solution, 22 UNITS SQ DAILY BEFORE BREAKFAST, (Reported) SLIDING SCALE TO USE IN ADDITION TO 22 UNITS BEFORE BREAKFAST: 150-199=2 UNITS 200-249=4 UNITS 250-299=7 UNITS 300-349=10 UNITS 350 AND ABOVE =14 UNITS Insulin Aspart 300 Units/3 Ml Solution, 18 UNITS SQ 1200 BEFORE LUNCH, (Reported) SLIDING SCALE TO USE IN ADDITION TO 18 UNITS BEFORE LUMNCH: 150-199=2 UNITS 200-249=4 UNITS 250-299=7 UNITS 300-349=10 UNITS 350 AND ABOVE =14 UNITS Insulin Aspart 300 Units/3 Ml Solution, 24 UNITS SQ 1700 BEFORE DINNER, (Reported) SLIDING SCALE TO USE IN ADDITION TO 24 UNITS BEFORE DINNER: 150-199=2 UNITS 200-249=4 UNITS 250-299=7 UNITS 300-349=10 UNITS 350 AND ABOVE =14 UNITS Insulin Detemir 100 Unit/1 Ml Insuln.pen, 70 UNITS SQ DAILY, (Reported) Insulin Detemir 100 Unit/1 Ml Insuln.pen, 80 UNIT SQ HS, (Reported) Lorazepam 0.5 Mg Tablet, 0.5-1 MG PO DAILY PRN for MUSCLE SPASMS, (Reported) Losartan Potassium 25 Mg Tablet, 25 MG PO DAILY, (Reported) Magnesium Carbonate/Al Hydrox 1 Each Tab.chew, 1 EACH PO UD PRN for HEARTBURN, (Reported) Metoprolol Tartrate 50 Mg Tablet, 50 MG PO 0700,1700, (Reported) Multivit-Min/FA/Lycopene/Lut 1 Each Tablet, 1 EACH PO DAILY, (Reported) Nitroglycerin 0.4 Mg Tab.subl, 0.4 MG SL UD PRN for CHEST PAIN (ANGINA), (Reported) Omeprazole 40 Mg Capsule.dr, 40 MG PO 0700,1700, (Reported) Ondansetron 4 Mg Tab.rapdis, 4 MG PO Q6H PRN for NAUSEA/VOMITING Prescribed by: TORY DASILVA on 06/23/20 0908 Potassium Chloride 8 Meq Tablet.er, 16 MEQ PO DAILY, (Reported) TAKES 2 (8MEQ) TABS Sertraline HCl 50 Mg Tablet, 50 MG PO 1700, (Reported) Sulfamethoxazole/Trimethoprim 1 Each Tablet, 1 EACH PO BID Prescribed by: MERCEDES SPARROW on 09/12/20 0943 Zolpidem Tartrate 10 Mg Tablet, 10 MG PO HS, (Reported) Patient Home Medication List Home Medication List Reviewed: Yes (CHON ROMO MD) Review of Systems Review of Systems Constitutional: No chills, No fever EENTM: No blurred vision, No double vision Respiratory: cough, phlegm, short of breath Cardiovascular: chest pain (on palpation, L lower ); No palpitations Gastrointestinal: No abdominal pain, No diarrhea, No nausea, No vomiting Genitourinary: No dysuria, No frequency, No incontinence Musculoskeletal: No joint pain, No muscle pain Skin: No rash Psychiatric/Neurological: Denies Anxiety, Denies Depressed, Denies Numbness; Weakness (per , lacking physical stamina) (GEORGIA CARRILLO STUDENT) Past Ivxogxa-Cdussh-Ykwxid Hx Patient Social History Alcohol Use: Rarely Uses 2nd Hand Smoke Exposure: No Recent Hopitalizations: No (GEORGIA CARRILLO STUDENT) Immunizations Up To Date Tetanus Booster (TDap): Unknown Date of Pneumonia Vaccine: Feb 11, 2017 Date of Influenza Vaccine: Jan 16, 2020 (GEORGIA CARRILLO STUDENT) Seasonal Allergies Seasonal Allergies: No (GEORGIA CARRILLO) Past Medical History Surgeries: Yes (Bilat "lens" implants, Laminectomy, Ablation, Cardiac stent, ) Cardiac, Coronary Stent, Gallbladder, Orthopedic, Pacemaker, Valve Replacement Respiratory: Yes (Exertional SOA; PULMONARY FIBROSIS; SILICOSIS) Asthma, Sleep Apnea, COPD Currently Using CPAP: Yes Currently Using BIPAP: No Cardiac: Yes (SVT; AFIB & FLUTTER;STEMI 04/13/15;ABLATION; PACEMAKER; TAVR;STENTS) Atrial Fibrillation, Coronary Artery Disease, Heart Attack, High Cholesterol, Hypertension, Irregular Heartbeat, Valvular Heart Disease Neurological: Yes (BALANCE PROBLEMS) Genitourinary: No Gastrointestinal: Yes (S/P CHOLECYSTECTOMY) Endocrine: Yes (OBESITY) Diabetes, Insulin dep HEENT: Yes (BILATERAL CATARACT SURGERY) Cataract, Macular Degeneration Hearing Impairment: Hard of Hearing Cancer: No Psychosocial: No Integumentary: No (GEORGIA CARRILLO STUDENT) Family Medical History PAST SURGICAL HISTORY: -OPEN CHOLECYSTECTOMY -CARDIAC CATHS--STENT X2--07/2007 AND HAD WA WITH STENT 04/03/15 -DUAL CHAMBER PACEMAKER--GARCIA--RIGHT CHEST -CARDIAC ABLATION 11/05/16 -TAVR 12/23/17 -LUNG BIOPSY 02/17/19 -BILATERAL CATARACT SURGERY 03/2019 (GEORGIA CARRILLO STUDENT) Physical Exam Vital Signs - First Documented 09/11/20 09:35 Temp 36.2 Pulse 70 Resp 22 B/P (MAP) 158/81 (106) Pulse Ox 97 (CHON ROMO MD) Capillary Refill : (GEORGIA CARRILLO STUDENT) Height: '" Weight: lbs. oz. kg; 35.00 BMI Method: General Appearance: no apparent distress, obese Eyes: Bilateral Eye PERRL, Bilateral Eye EOMI HEENT: PERRL/EOMI; No pale conjunctivae (R), No pale conjunctivae (L) Neck: non-tender, normal inspection Respiratory: rhonchi (L sided, inspiratory), other (Chest pain on L side over lower ribs) Cardiovascular: normal peripheral pulses, no murmur Gastrointestinal: soft, tenderness (diffusely, mild, chronically episodic per patient) Extremities: no calf tenderness, normal capillary refill Neurologic/Psychiatric: alert, normal mood/affect Skin: normal color, warm/dry Lymphatic: no adenopathy (GEORGIA CARRILLO STUDENT) Progress/Results/Core Measures Suspected Sepsis SIRS Temperature: Pulse: Respiratory Rate: Laboratory Tests 09/11/20 09:45: White Blood Count 10.2 Blood Pressure / Mean: Laboratory Tests 09/11/20 09:45: Creatinine 1.51H, INR Comment 1.2, Platelet Count 100L, Total Bilirubin 0.4 (GEOR[place]IA CARRILLO MED STUDENT) Results/Orders Lab Results Laboratory Tests Test 09/11/20 09:45 09/11/20 10:19 Range/Units White Blood Count 10.2 4.3-11.0 10^3/uL Red Blood Count 4.54 4.30-5.52 10^6/uL Hemoglobin 13.1 L 13.3-17.7 g/dL Hematocrit 41 40-54 % Mean Corpuscular Volume 90 80-99 fL Mean Corpuscular Hemoglobin 29 25-34 pg Mean Corpuscular Hemoglobin Concent 32 32-36 g/dL Red Cell Distribution Width 15.2 H 10.0-14.5 % Platelet Count 100 L 130-400 10^3/uL Mean Platelet Volume 12.6 H 9.0-12.2 fL Immature Granulocyte % (Auto) 1 % Neutrophils (%) (Auto) 77 H 42-75 % Lymphocytes (%) (Auto) 15 12-44 % Monocytes (%) (Auto) 5 0-12 % Eosinophils (%) (Auto) 2 0-10 % Basophils (%) (Auto) 1 0-10 % Neutrophils # (Auto) 7.9 H 1.8-7.8 10^3/uL Lymphocytes # (Auto) 1.6 1.0-4.0 10^3/uL Monocytes # (Auto) 0.5 0.0-1.0 10^3/uL Eosinophils # (Auto) 0.2 0.0-0.3 10^3/uL Basophils # (Auto) 0.1 0.0-0.1 10^3/uL Immature Granulocyte # (Auto) 0.1 0.0-0.1 10^3/uL Percent Immature Platelet Fraction 6.6 0.0-7.6 % Prothrombin Time 15.6 H 12.2-14.7 SEC INR Comment 1.2 0.8-1.4 Activated Partial Thromboplast Time 31 24-35 SEC Sodium Level 139 135-145 MMOL/L Potassium Level 4.4 3.6-5.0 MMOL/L Chloride Level 106 98-107 MMOL/L Carbon Dioxide Level 26 21-32 MMOL/L Anion Gap 7 5-14 MMOL/L Blood Urea Nitrogen 23 H 7-18 MG/DL Creatinine 1.51 H 0.60-1.30 MG/DL Estimat Glomerular Filtration Rate 44 BUN/Creatinine Ratio 15 Glucose Level 277 H 70-105 MG/DL Calcium Level 9.3 8.5-10.1 MG/DL Corrected Calcium 9.6 8.5-10.1 MG/DL Magnesium Level 2.2 1.6-2.4 MG/DL Total Bilirubin 0.4 0.1-1.0 MG/DL Aspartate Amino Transf (AST/SGOT) 14 5-34 U/L Alanine Aminotransferase (ALT/SGPT) 15 0-55 U/L Alkaline Phosphatase 100 40-136 U/L Myoglobin 90.0 10.0-92.0 NG/ML Troponin I < 0.028 <0.028 NG/ML C-Reactive Protein High Sensitivity 0.09 0.00-0.50 MG/DL B-Type Natriuretic Peptide 78.0 <100.0 PG/ML Total Protein 6.0 L 6.4-8.2 GM/DL Albumin 3.6 3.2-4.5 GM/DL Urine Color YELLOW Urine Clarity CLEAR Urine pH 5.5 5-9 Urine Specific Snyder 1.025 H 1.016-1.022 Urine Protein NEGATIVE NEGATIVE Urine Glucose (UA) 3+ H NEGATIVE Urine Ketones NEGATIVE NEGATIVE Urine Nitrite NEGATIVE NEGATIVE Urine Bilirubin NEGATIVE NEGATIVE Urine Urobilinogen 0.2 < = 1.0 MG/DL Urine Leukocyte Esterase NEGATIVE NEGATIVE Urine RBC (Auto) NEGATIVE NEGATIVE Urine RBC NONE /HPF Urine WBC RARE /HPF Urine Squamous Epithelial Cells 0-2 /HPF Urine Crystals NONE /LPF Urine Bacteria NEGATIVE /HPF Urine Casts NONE /LPF Urine Mucus NEGATIVE /LPF Urine Culture Indicated NO (CHON ROMO MD) My Orders Orders - CHON ROMO MD Cbc With Automated Diff (09/11/20 09:50) Magnesium (09/11/20 09:50) Ekg Tracing (09/11/20 09:50) Comprehensive Metabolic Panel (09/11/20 09:50) Myoglobin Serum (09/11/20 09:50) Protime With Inr (09/11/20 09:50) Partial Thromboplastin Time (09/11/20 09:50) O2 (09/11/20 09:50) Monitor-Rhythm Ecg Trace Only (09/11/20 09:50) Ed Iv/Invasive Line Start (09/11/20 09:50) BNP (09/11/20 09:50) Troponin I (09/11/20 09:50) Hs C Reactive Protein (09/11/20 09:50) Chest Pa/Lat (2 View) (09/11/20 09:50) Ua Culture If Indicated (09/11/20 09:51) Ns Iv 500 Ml (Sodium Chloride 0.9%) (09/11/20 11:30) (CHON ROMO MD) Medications Given in ED (CHON ROMO MD) Vital Signs/I&O 09/11/20 09/11/20 09:35 12:48 Temp 36.2 Pulse 70 74 Resp 22 18 B/P (MAP) 158/81 (106) 144/89 (106) Pulse Ox 97 97 (CHON ROMO MD) Vital Signs/I&O Capillary Refill : (GEOR[place]IA CARRILLO MED STUDENT) Progress Note #1: Time: 10:56 Progress Note patient appears more comfortable, lungs CTAB, states he coughed up a significant amount of phlegm a few minutes ago. Mildly elevated BUN and Cr easily attributed to dehydration, when in conjunction with elevated glucose. Labs otherwise grossly normal, cxr report indicates no findings. Progress Note #2: Time: 11:13 Progress Note Discussed negative workup with patient and , they are amenable to IV and oral hydration. Per nurse, pacemaker has ~1 month of battery life left and no recorded cardiac events, will call Dr. Sparrow regarding findings and follow up for pacemaker. Patient feels well with no complaints at this time. (GEOR[place]IA CARRILLO MED STUDENT) Progress Note : Progress Note Patient was seen and examined by me personally. I interviewed patient and his . Work-up was relatively unremarkable except for a mild elevation in BUN and creatinine. IV fluids were administered. The exact cause of patient's decline is uncertain but may be related to multifactorial influence from his chronic illnesses, fractures, etc. I discussed the situation with Dr. Noriega regarding his pacemaker. The cardiology office is arranging for pacemaker replacement tomorrow. Pacemaker interrogation was reviewed. Battery replacement was recommended by the nurses educator. (CHON ROMO MD) ECG Initial ECG Impression Date: September 14, 2020 Initial ECG Impression Time: 09:42 Initial ECG Rate: 76 Comment Atrial paced rhythm with no ST elevation or depression. (CHON ROMO MD) Diagnostic Imaging Diagonstic Imaging: Xray Plain Films/CT/US/NM/MRI: chest Comments Chest x-ray viewed by me and report reviewed. See report below: NAME: KAREN CARTER MED REC#: [id number] PT STATUS: REG ER : 1935 PHYSICIAN: CHON ROMO MD ADMIT DATE: 09/11/20/ER Signed Date of Exam:09/11/20 CHEST PA/LAT (2 VIEW) INDICATION: Chest pain PA and lateral chest Patient has a dual-chamber pacemaker. There are postoperative changes from aortic valve replacement. Lungs are clear. There are no effusions or pneumothoraces. IMPRESSION: No acute abnormalities in the chest. Dictated by: Dictated on workstation # [id number] Dict: 09/11/20 1034 Trans: 09/11/20 1045 CV [id number] Interpreted by: JACE RAMÍREZ MD Electronically signed by: JACE RAMÍREZ MD 09/11/20 1045 (CHON ROMO MD) Departure Impression Primary Impression: Generalized weakness Additional Impressions: Dyspnea on exertion Pacemaker at end of battery life Disposition: 01 HOME, SELF-CARE Condition: Stable Departure-Patient Inst. Decision time for Depature: 12:37 (CHON ROMO MD) Referrals: [facility] (PCP) Primary Care Physician ADAM NICOLE (Family) Primary Care Physician Patient Instructions: Pacemaker Check Add. Discharge Instructions: Keep your appointment tomorrow with Dr. Sparrow for pacemaker replacement. Follow-up with your primary care provider soon as possible to review medications and your diabetes management. Call with questions or concerns. Return to the ER if you have worsening symptoms. Medical Student Attestation and Attending Note: I have personally interviewed and examined this patient along with Georgia Carrillo MS3. I have reviewed student documentation including history, physic al, and assessments. I agree with the documentation except where otherwise noted. Exam: General: Alert, oriented, no acute distress, well developed HEENT: Normocephalic and atraumatic Heart: Regular rate and rhythm without murmur Lungs: Clear to auscultation bilaterally with normal effort, no wheezes or crackles Abdomen: Soft, nontender, nondistended, normal bowel sounds Extremities: Lower extremity edema noted Neuropsych: Alert, oriented, no focal deficits Skin: Warm and dry (CHON ROMO MD) Copy Copies To 1: SAMIR NORIEGA MD Copies To 2: MARCO GURROLA MATTHEW MED STUDENT September 11, 2020 09:50 CHON ROMO MD September 11, 2020 12:38
[2020-09-11 09:57] LABS: BASOPHILS # (AUTO) 0.1 10^3/uL (0.0-0.1); BASOPHILS % (AUTO) 1 % (0-10); HEMOGLOBIN 13.1 g/dL (13.3-17.7)
[2020-09-11 09:59] LABS: EOSINOPHILS # (AUTO) 0.2 10^3/uL (0.0-0.3); EOSINOPHILS % (AUTO) 2 % (0-10); HEMATOCRIT 41 % (40-54); LYMPHOCYTES # (AUTO) 1.6 10^3/uL (1.0-4.0); LYMPHOCYTES % (AUTO) 15 % (12-44); MEAN CORPUSCULAR HEMOGLOBIN 29 pg (25-34); MEAN CORPUSCULAR HGB CONC 32 g/dL (32-36); MEAN CORPUSCULAR VOLUME 90 fL (80-99); MEAN PLATELET VOLUME 12.6 fL (9.0-12.2); MONOCYTES # (AUTO) 0.5 10^3/uL (0.0-1.0); MONOCYTES % (AUTO) 5 % (0-12); NEUTROPHILS # (AUTO) 7.9 10^3/uL (1.8-7.8); NEUTROPHILS % (AUTO) 77 % (42-75); PLATELET COUNT 100 10^3/uL (130-400); WHITE BLOOD COUNT 10.2 10^3/uL (4.3-11.0)
[2020-09-11 10:08] LABS: ALBUMIN 3.6 GM/DL (3.2-4.5); INR 1.2 (0.8-1.4); POTASSIUM 4.4 MMOL/L (3.6-5.0); PROTHROMBIN TIME PATIENT 15.6 SEC (12.2-14.7)
[2020-09-11 10:09] LABS: CALCIUM 9.3 MG/DL (8.5-10.1)
[2020-09-11 10:12] LABS: BILIRUBIN,TOTAL 0.4 MG/DL (0.1-1.0)
[2020-09-11 10:14] LABS: CREATININE SERUM 1.51 MG/DL (0.60-1.30)
[2020-09-11 10:17] LABS: MAGNESIUM 2.2 MG/DL (1.6-2.4)
[2020-09-11 10:26] LABS: BILIRUBIN,URINE NEGATIVE (NEGATIVE); CLARITY,URINE CLEAR; COLOR,URINE YELLOW; GLUCOSE, URINE (UA) 3+ (NEGATIVE); KETONES,URINE NEGATIVE (NEGATIVE); LEUKOCYTE ESTERASE ,URINE NEGATIVE (NEGATIVE); NITRITE,URINE NEGATIVE (NEGATIVE); PH,URINE 5.5 (5-9); PROTEIN,URINE NEGATIVE (NEGATIVE)
--- NOTE | 2020-09-11 10:35 | Diagnostic Imaging Report ---
INDICATION: Chest pain PA and lateral chest Patient has a dual-chamber pacemaker. There are postoperative changes from aortic valve replacement. Lungs are clear. There are no effusions or pneumothoraces. IMPRESSION: No acute abnormalities in the chest. Dictated by: Dictated on workstation # [id number]
[2020-09-11 10:37] LABS: BACTERIA,URINE NEGATIVE /HPF; SQUAMOUS EPITHELIAL CELL,UR 0-2 /HPF; WBC,URINE RARE /HPF
[2020-09-11] MEDS ORDERED: NS IV 500 ML 500 ML IV ONE (11:30)
[2020-09-11 12:48] VITALS: BP 144/89
[2020-09-12] MEDS ORDERED: EMPA10TA PO (07:42)
[2020-09-12] MEDS ORDERED: FURO20TA4 PO (07:42)
[2020-09-12] MEDS ORDERED: SULF1TAB35 PO (09:43)
[2020-09-12] MEDS ORDERED: ACET325T38 PO (09:45)
== END 2020-09-11 12:51 | disposition home or self-care (01) ==
LOC: EDUNIT# 09:22 → ER 09:24
DX: R06.09 Other forms of dyspnea (principal); R53.1 Weakness; R10.84 Generalized abdominal pain; R79.89 Other specified abnormal findings of blood chemistry; E11.9 Type 2 diabetes mellitus without complications; I11.0 Hypertensive heart disease with heart failure; I50.9 Heart failure, unspecified; I25.10 Atherosclerotic heart disease of native coronary artery without angina pectoris; J44.9 Chronic obstructive pulmonary disease, unspecified; I48.91 Unspecified atrial fibrillation; E78.00 Pure hypercholesterolemia, unspecified; G47.30 Sleep apnea, unspecified; E66.9 Obesity, unspecified; Z95.0 Presence of cardiac pacemaker; Z68.35 Body mass index [BMI] 35.0-35.9, adult; Z95.5 Presence of coronary angioplasty implant and graft; Z79.01 Long term (current) use of anticoagulants; Z79.82 Long term (current) use of aspirin; Z79.899 Other long term (current) drug therapy; Z79.51 Long term (current) use of inhaled steroids; Z79.4 Long term (current) use of insulin; Z88.0 Allergy status to penicillin; Z88.8 Allergy status to other drugs, medicaments and biological substances
CPT/HCPCS: 36415; 71046; 80053; 81000; 83735; 83874; 83880; 84484; 85025; 85610; 85730; 86141; 93005; 93041

== ENCOUNTER 2020-09-12 08:00 | Day surgery (SDC) | payer MEDICARE, MEDICAID ==
[2020-09-12] VITALS (9 sets, daily range): BP systolic 152–168; BP diastolic 65–79
[~2020-09-12] VITALS: Ht 183 cm; Wt 114.0 kg
[2020-09-12 07:41] LABS: HEMOGLOBIN 13.5 g/dL (13.3-17.7)
[2020-09-12 07:43] LABS: MEAN PLATELET VOLUME 13.1 fL (9.0-12.2); WHITE BLOOD COUNT 10.7 10^3/uL (4.3-11.0)
[~2020-09-12 08:00] MED LIST changes: +BACITRACIN INJECTION 50,000 UNIT, SODIUM CHLORIDE 0.9% IRRIGATIO 500 ML IR ONE; +HEParin (CATH LAB) 1,000 ML IV ONE; +LIDOCAINE 1% INJ 20 ML 20 ML VIAL ONE; +NS IV 1000 ML 1,000 ML IV ONE; +NS IV 1000 ML 1,000 ML ONE; +VANCOMYCIN INJECTION 1,000 MG in NS (IVPB) 250 ML IV ONE
[2020-09-12 08:28] LABS: ALBUMIN 3.5 GM/DL (3.2-4.5); BILIRUBIN,TOTAL 0.4 MG/DL (0.1-1.0); CREATININE SERUM 1.5 MG/DL (0.60-1.30); INR 1.2 (0.8-1.4); POTASSIUM 4.9 MMOL/L (3.6-5.0); TOTAL PROTEIN 5.8 GM/DL (6.4-8.2)
[2020-09-12] MEDS ORDERED: fentaNYL INJ 100 MCG/2 ML AMP ONE (08:30)
[2020-09-12] MEDS ORDERED: MIDAZOLAM 5 MG/5 ML (VERSED) VIAL ONE (08:30)
--- NOTE | 2020-09-12 09:39 | Cardiac Procedure Note-CS/ASA ---
Pre-Procedure Note Pre-Op Procedure Note H&P Reviewed The H&P was reviewed, patient examined and no changes noted. Date H&P Reviewed: September 12, 2020 Time H&P Reviewed: 08:55 Conscious Sedation Pre-Proced Time 08:55 ASA Score 3 For ASA 3 and 4: Consider anesthesia and medical clearance. Also, for patients with a history of failed moderate sedation consider anesthesia. Airway Lungs Heart ASA score ASA 1: a normal healthy patient ASA 2: a patient with a mild systemic disease (mid diabetes, controlled hypertension, obesity ASA 3: a patient with a severe systemic disease that limits activity (angina, COPD, prior Myocardial infarction) ASA 4: a patient with an incapacitating disease that is a constant threat to life (CHF, renal failure) ASA 5: a moribund patient not expected to survive 24 hrs. (ruptured aneurysm) ASA 6: a declared brain- patient whose organs are being harvested. For emergent operations, add the letter E after the classification Mallampati Classification Grade 3 Sedation Plan Analgesia, Amnesia, Plan communicated to team members, Discussed options with patient/fam, Discussed risks with patient/fam The patient is an appropriate candidate to undergo the planned procedure, sedation, and anesthesia. The patient immediately re-assessed prior to indication. MERCEDES VAZQUEZ MD FACP FAC CCDS September 12, 2020 09:39
[2020-09-12] MEDS ORDERED: SULF1TAB35 PO (09:43)
--- NOTE | 2020-09-12 09:44 | Discharge Inst-Cardiology ---
Discharge Inst-Cardiac Discharge Medications New Medications: Sulfamethoxazole/Trimethoprim (Bactrim Ds Tablet) 1 Each Tablet 1 EACH PO BID for 7 Days, #14 TAB 0 Refills Continued Medications: Albuterol Sulfate (Ventolin Hfa) 18 Gm Hfa.aer.ad 2 PUFF INH Q4H PRN for SHORTNESS OF BREATH, EA Antiox#10/Om3/Dha/Epa/Lut/Zeax (I-Caps with Lutein-Hay 3 Sfg) 1 Each Capsule 1 EACH PO DAILY, CAP Apixaban (Eliquis) 5 Mg Tablet 5 MG PO 0700,1700, TAB Aspirin (Aspirin EC) 81 Mg Tablet.dr 162 MG PO HS, TAB TAKES 2 (81MG) TABS Atorvastatin Calcium (Atorvastatin Calcium) 20 Mg Tablet 20 MG PO HS, TAB Calcium Carbonate/Vitamin D3 (Calcium 600 + Vit D3 400 Tab) 1 Each Tablet 1 EACH PO DAILY, TAB Diphenoxylate HCl/Atropine (Lomotil 2.5-0.025 mg Tablet) 1 Each Tablet 1 EACH PO Q6H PRN for DIARRHEA, #10 TAB Empagliflozin (Jardiance) 10 Mg Tablet 10 MG PO DAILY, TAB Fluticasone/Umeclidin/Vilanter (Trelegy Ellipta 100-62.5-25) 1 Each Blst.w.dev 1 PUFF INH HS, EA Furosemide (Furosemide) 20 Mg Tablet 20 MG PO DAILY, TAB Insulin Aspart (Novolog Flexpen) 300 Units/3 Ml Solution 22 UNITS SQ DAILY BEFORE BREAKFAST, UNITS SLIDING SCALE TO USE IN ADDITION TO 22 UNITS BEFORE BREAKFAST: 150-199=2 UNITS 200-249=4 UNITS 250-299=7 UNITS 300-349=10 UNITS 350 AND ABOVE =14 UNITS Insulin Aspart (Novolog Flexpen) 300 Units/3 Ml Solution 18 UNITS SQ 1200 BEFORE LUNCH, EA SLIDING SCALE TO USE IN ADDITION TO 18 UNITS BEFORE LUMNCH: 150-199=2 UNITS 200-249=4 UNITS 250-299=7 UNITS 300-349=10 UNITS 350 AND ABOVE =14 UNITS Insulin Aspart (Novolog Flexpen) 300 Units/3 Ml Solution 24 UNITS SQ 1700 BEFORE DINNER, EA SLIDING SCALE TO USE IN ADDITION TO 24 UNITS BEFORE DINNER: 150-199=2 UNITS 200-249=4 UNITS 250-299=7 UNITS 300-349=10 UNITS 350 AND ABOVE =14 UNITS Insulin Detemir (Levemir Flextouch) 100 Unit/1 Ml Insuln.pen 70 UNITS SQ DAILY, UNIT Insulin Detemir (Levemir Flextouch) 100 Unit/1 Ml Insuln.pen 80 UNIT SQ HS, UNITS Lorazepam (Ativan) 0.5 Mg Tablet 0.5-1 MG PO DAILY PRN for MUSCLE SPASMS, TAB Losartan Potassium (Losartan Potassium) 25 Mg Tablet 25 MG PO DAILY, TAB Magnesium Carbonate/Al Hydrox (Gaviscon Es Tablet Chew) 1 Each Tab.chew 1 EACH PO UD PRN for HEARTBURN, TAB Metoprolol Tartrate (Metoprolol Tartrate) 50 Mg Tablet 50 MG PO 0700,1700, TAB Multivit-Min/FA/Lycopene/Lut (Centrum Silver Tablet) 1 Each Tablet 1 EACH PO DAILY, TAB Nitroglycerin (Nitroglycerin) 0.4 Mg Tab.subl 0.4 MG SL UD PRN for CHEST PAIN (ANGINA), TAB Omeprazole (Omeprazole) 40 Mg Capsule.dr 40 MG PO 0700,1700, CAP Ondansetron (Ondansetron Odt) 4 Mg Tab.rapdis 4 MG PO Q6H PRN for NAUSEA/VOMITING, #20 TAB 0 Refills Potassium Chloride (K-Tab ER) 8 Meq Tablet.er 16 MEQ PO DAILY, TAB TAKES 2 (8MEQ) TABS Sertraline HCl (Sertraline HCl) 50 Mg Tablet 50 MG PO 1700, TAB Zolpidem Tartrate (Ambien) 10 Mg Tablet 10 MG PO HS, TAB Discontinued Medications: Ciprofloxacin HCl (Ciprofloxacin HCl) 500 Mg Tablet 500 MG PO BID, #14 TAB MERCEDES VAZQUEZ MD FACP FAC CCDS September 12, 2020 09:44
[2020-09-12] MEDS ORDERED: ACET325T38 PO (09:45)
[2020-09-12] MEDS ORDERED: NS IV 1000 ML 1,000 ML IV SCH (09:45)
[2020-09-12] MEDS ORDERED: PATIENT MAY USE OWN MEDS, ALL PO SCH (09:45)
--- NOTE | 2020-09-12 09:46 | Discharge Inst-Post CATH ---
Discharge Inst-CATH/EP Post Cardiac Cath/EP D/C Inst Follow Up/Plan F/u at Dr Cary for wound inspection Friday09/15/20 F/u at Dr Cary for doctor visit in one month F/u at Dr Cary for pacemaker interrogation in one month ACTIVITY * Go Home directly and rest.. * Avoid lifting, pushing, pulling or excessive movement of the affected extremity for 7 days. * Customary sexual activity may be resumed after 2 days-use caution not to use a position that strains or causes pain to the affected extremity. * No driving for 24 hours. * NO SMOKING. * Avoid straining for bowel movements for 7 days. * Gentle walking on level ground is allowed. * Returning to work will depend on the type of procedure and the results. Your doctor will discuss this with you. CALL YOUR DOCTOR FOR ANY OF THE FOLLOWING: *If bleeding from the puncture site occurs- Apply gentle pressure to site with clean cloth and call your doctor or EMS. * If a knot or lump forms under the skin, increases in size, or causes pain. * If bruising appears to be worsening or moving further down your leg instead of disappearing. * Temperature above 101 F. CARE OF YOUR GROIN INCISION; * Bruising or purple discoloration of the skin near the puncture site is common. * You may shower only, no bathtub bathing for 5 days. Be careful to avoid slipping as your leg may feel stiff. * If a closure device was used on your femoral artery, please see the attached guide regarding care of the device and your leg. * Leave dressing on FOR 24 hours. CARE OF YOUR WRIST INCISION; * Bruising or purple discoloration of the skin near the puncture site is common. * You may shower. * DO NOT submerge wrist. * Leave dressing on FOR 24 hours. MERCEDES VAZQUEZ MD [facility] CCDS September 12, 2020 09:46
--- NOTE | 2020-09-12 13:26 | OPERATIVE REPORT ---
DATE OF SERVICE: 09/12/2020 PREOPERATIVE DIAGNOSIS: Pacemaker at elective replacement indicator. POSTOPERATIVE DIAGNOSIS: Pacemaker at elective replacement indicator. PROCEDURE PERFORMED: Pulse generator change. 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 Pulse generator change was carried out today after having obtained an informed consent. DESCRIPTION OF PROCEDURE: He was brought to the cardiac catheterization laboratory. The right prepectoral area is the site of pacemaker implantation. This was prepared and draped in the usual sterile fashion. Lidocaine 1% was used for local anesthesia. Sharp and blunt dissection was used to open the pacemaker pocket and the pacemaker was removed from the pocket and detached from the leads. The leads were then attached to a new pacemaker. The pocket was thoroughly irrigated with an antibiotic solution. Good hemostasis was assured. The pacemaker and the leads were placed back into the pocket and the pocket was closed in two layers using 3.0 Vicryl. He tolerated the procedure well. The new device is a [employer] MRI 2272 pacemaker. The atrial lead was not changed. It has a lead impedance of 400 ohms. It senses P waves at 2 millivolts and the capture threshold is 1 volt at 0.4 milliseconds. The ventricular lead was not changed. Its lead impedance is 410 ohms. It senses R waves of 7.3 millivolts. The capture threshold is 0.75 volts at 0.4 milliseconds. The pacemaker is set in the DDDR mode with a base rate of 70 beats per minute and a maximum track rate of 120 beats per minute. Job ID: [id number] DocumentID: [id number] Dictated Date: 09/12/2020 09:52:08 Abstract Writer Date: 09/12/2020 13:25:08 Dictated By: MERCEDES VAZQUEZ MD, MA, FACP, FACC,
== END 2020-09-12 13:05 | disposition home or self-care (01) ==
LOC: CATH 08:00 → SDC 10:21 → CATH 13:05
PROVIDERS: ATTEND Internal Medicine Cardiovascular Disease
DX: Z45.018 Encounter for adjustment and management of other part of cardiac pacemaker (principal); I25.10 Atherosclerotic heart disease of native coronary artery without angina pectoris; E66.9 Obesity, unspecified; I47.1 Supraventricular tachycardia; I65.23 Occlusion and stenosis of bilateral carotid arteries; I48.19 Other persistent atrial fibrillation; G47.33 Obstructive sleep apnea (adult) (pediatric); J44.9 Chronic obstructive pulmonary disease, unspecified; E11.9 Type 2 diabetes mellitus without complications; F17.220 Nicotine dependence, chewing tobacco, uncomplicated; Z88.0 Allergy status to penicillin; Z88.8 Allergy status to other drugs, medicaments and biological substances; Z79.82 Long term (current) use of aspirin; Z79.01 Long term (current) use of anticoagulants; Z79.4 Long term (current) use of insulin; Z79.899 Other long term (current) drug therapy; Z90.89 Acquired absence of other organs; Z90.49 Acquired absence of other specified parts of digestive tract; Z95.2 Presence of prosthetic heart valve; Z68.38 Body mass index [BMI] 38.0-38.9, adult; Z80.9 Family history of malignant neoplasm, unspecified; Z83.3 Family history of diabetes mellitus; Z82.49 Family history of ischemic heart disease and other diseases of the circulatory system
CPT/HCPCS: 33228; 80053; 80061; 85027; 85610; 85730; 87081; C1785; 36415

== ENCOUNTER 2020-10-05 11:18 | Outpatient (RCR) | payer MEDICARE, MEDICAID ==
[~2020-10-05 11:18] MED LIST changes: +ACET325T38 PO; -BACITRACIN INJECTION 50,000 UNIT, SODIUM CHLORIDE 0.9% IRRIGATIO 500 ML IR ONE; -HEParin (CATH LAB) 1,000 ML IV ONE; -LIDOCAINE 1% INJ 20 ML 20 ML VIAL ONE; -NS IV 1000 ML 1,000 ML IV ONE; -NS IV 1000 ML 1,000 ML ONE; -OMEP40CA27 PO; +OMEP40CA6 PO; +SULF1TAB35 PO; -VANCOMYCIN INJECTION 1,000 MG in NS (IVPB) 250 ML IV ONE
== END 2020-10-16 | disposition home or self-care (01) ==
PROVIDERS: ATTEND Nurse Practitioner
DX: M17.12 Unilateral primary osteoarthritis, left knee (principal)

== ENCOUNTER 2020-12-25 08:30 | Outpatient (RCR) | payer MEDICARE, MEDICAID ==
[~2020-12-25 08:30] MED LIST changes: -SULF1TAB35 PO; +SULF1TAB38 PO
== END 2020-12-28 09:14 | disposition home or self-care (01) ==
PROVIDERS: ATTEND Nurse Practitioner
DX: M17.12 Unilateral primary osteoarthritis, left knee (principal); R53.1 Weakness; R29.6 Repeated falls; E11.9 Type 2 diabetes mellitus without complications; I10 Essential (primary) hypertension; J44.9 Chronic obstructive pulmonary disease, unspecified; Z95.0 Presence of cardiac pacemaker

== ENCOUNTER → 2021-01-12 | Outpatient (CLI) | payer MEDICARE, MEDICAID ==
[~2021-01-12] VITALS: Ht 182 cm; Wt 110.0 kg
[~2021-01-12] MED LIST changes: +CATHETER FLUSH 10 ML SYR IV PRN; +REGADENOSON 0.4 MG/5 ML SYR (LEXISCAN) IV ONE
[2021-01-12 08:27] VITALS: BP 175/72
== END ==
LOC: CARD 08:00
PROVIDERS: ATTEND Nurse Practitioner Family
DX: I25.10 Atherosclerotic heart disease of native coronary artery without angina pectoris (principal)
CPT/HCPCS: 78452; 93017; A9502

== ENCOUNTER 2021-05-02 22:53 | Emergency (ER) | payer MEDICARE, MEDICAID ==
[~2021-05-02] VITALS: Ht 185.4 cm; Wt 116.0 kg
[~2021-05-02 22:53] MED LIST changes: +CALC-774 PO; -CATHETER FLUSH 10 ML SYR IV PRN; -CLD600T PO; +DICY20TA PO; -DICY20TA10 PO; -REGADENOSON 0.4 MG/5 ML SYR (LEXISCAN) IV ONE
[2021-05-02 23:18] LABS: HEMATOCRIT 40 % (40-54); MONOCYTES # (AUTO) 0.6 10^3/uL (0.0-1.0)
--- NOTE | 2021-05-02 23:18 | ED Syncope ---
General Chief Complaint: Dizziness/Syncope Stated Complaint: WEAKNESS Source of Information: Patient Exam Limitations: No Limitations History of Present Illness Date Seen by Provider: May 02, 2021 Time Seen by Provider: 23:00 Initial Comments Patient ER by EMS from home with chief complaint that he felt fine all day. He went to stand up out of his chair and he says he felt like something hitting right square between the eyes with a hammer and made him feel like he was about to pass out. He did not pass out nor did he fall. Did not strike his head. He sat back down and an ambulance was summoned. He is not having shortness of air or chest pain or any worse than normal cough. He has a history of COPD on CPAP at night. He did not require oxygen. He says his put a pulse oximeter on his finger and it was reading all over the place going down his lower 70 and as high as 90s. EMS states that by the time they arrived he had no extra work of breathing and oxygen saturations were 99% on room air with nonlabored breathing. He does not use supplemental oxygen at baseline. He did get his booster shot for COVID-19 on Friday, 5 days ago. He has otherwise been well and not had any sick contacts. He does not feel bad now other than a mild headache. No nausea vomiting diarrhea, worsening productive cough or other worrisome symptoms at this time Stress test December 2020, [address] Sparrow demonstrates normal wall motion without evidence of myocardial ischemia or infarction and an EF of 71%. Allergies and Home Medications Allergies Coded Allergies: Penicillins (Verified Allergy, Unknown, Anaphylaxis, 02/27/20) promethazine (Verified Allergy, Unknown, Anaphylaxis, 02/27/20) ramelteon (Verified Allergy, Unknown, Shortness of Breath, 02/27/20) "Severe bronchospasm" sotalol (Verified Allergy, Unknown, Shortness of Breath, 02/27/20) "Severe bronchospasm" Patient Home Medication List Home Medication List Reviewed: Yes Acetaminophen (Tylenol) 325 Mg Tablet, 650 MG PO Q6H PRN for PAIN-MODERATE (5-7) Prescribed by: MERCEDES SPARROW on 09/12/20 0945 Albuterol Sulfate (Ventolin Hfa) 18 Gm Hfa.aer.ad, 2 PUFF INH Q4H PRN for SHORTNESS OF BREATH, (Reported) Entered as Reported by: DONATO MORRISON on 04/20/20 1038 Antiox#10/Om3/Dha/Epa/Lut/Zeax (I-Caps with Lutein-[place] 3 Sfg) 1 Each Capsule, 1 EACH PO DAILY, (Reported) Entered as Reported by: DONATO MORRISON on 04/20/20 1038 Apixaban (Eliquis) 5 Mg Tablet, 5 MG PO 0700,1700, (Reported) Entered as Reported by: CLARISA SOARES on 04/20/20 0616 Aspirin (Aspirin EC) 81 Mg Tablet.dr, 162 MG PO HS, (Reported) Entered as Reported by: DONATO MORRISON on 04/20/20 1049 Atorvastatin Calcium (Atorvastatin Calcium) 20 Mg Tablet, 20 MG PO HS, (Reporte d) Entered as Reported by: CLARISA SOARES on 04/20/20 0616 Calcium Carbonate/Vitamin D3 (Calcium 600 + Vit D3 400 Tab) 1 Each Tablet, 1 EACH PO DAILY, (Reported) Entered as Reported by: CLARISA SOARES on 04/20/20 0616 Diphenoxylate HCl/Atropine (Lomotil 2.5-0.025 mg Tablet) 1 Each Tablet, 1 EACH PO Q6H PRN for DIARRHEA Prescribed by: TORY DASILVA on 06/23/20 0908 Empagliflozin (Jardiance) 10 Mg Tablet, 10 MG PO DAILY, (Reported) Entered as Reported by: EMELYN CABRERA on 09/12/20 0742 Fluticasone/Umeclidin/Vilanter (Trelegy Ellipta 100-62.5-25) 1 Each Blst.w.dev, 1 PUFF INH HS, (Reported) Entered as Reported by: CLARISA SOARES on 04/20/20 0616 Furosemide (Furosemide) 20 Mg Tablet, 20 MG PO DAILY, (Reported) Entered as Reported by: EMELYN CABRERA on 09/12/20 0742 Insulin Aspart (Novolog Flexpen) 300 Units/3 Ml Solution, 22 UNITS SQ DAILY BEFORE BREAKFAST, (Reported) Entered as Reported by: CLARISA SOARES on 04/20/20 0616 Insulin Aspart (Novolog Flexpen) 300 Units/3 Ml Solution, 18 UNITS SQ 1200 BEFORE LUNCH, (Reported) Entered as Reported by: CLARISA SOARES on 04/20/20615 Insulin Aspart (Novolog Flexpen) 300 Units/3 Ml Solution, 24 UNITS SQ 1700 BEFORE DINNER, (Reported) Entered as Reported by: CLARISA SOARES on 04/20/20615 Insulin Detemir (Levemir Flextouch) 100 Unit/1 Ml Insuln.pen, 70 UNITS SQ DAILY, (Reported) Entered as Reported by: CLARISA SOARES on 04/20/20615 Insulin Detemir (Levemir Flextouch) 100 Unit/1 Ml Insuln.pen, 80 UNIT SQ HS, (Reported) Entered as Reported by: CLARISA SOARES on 04/20/20615 Lorazepam (Ativan) 0.5 Mg Tablet, 0.5-1 MG PO DAILY PRN for MUSCLE SPASMS, (Reported) Entered as Reported by: CLARISA SOARES on 04/20/20615 Losartan Potassium (Losartan Potassium) 25 Mg Tablet, 25 MG PO DAILY, (Reported) Entered as Reported by: CLARISA SOARES on 04/20/20615 Magnesium Carbonate/Al Hydrox (Gaviscon Es Tablet Chew) 1 Each Tab.chew, 1 EACH PO UD PRN for HEARTBURN, (Reported) Entered as Reported by: CLARISA SOARES on 04/20/20615 Metoprolol Tartrate (Metoprolol Tartrate) 50 Mg Tablet, 50 MG PO 0700,1700, (Reported) Entered as Reported by: CLARISA SOARES on 04/20/20615 Multivit-Min/FA/Lycopene/Lut (Centrum Silver Tablet) 1 Each Tablet, 1 EACH PO DAILY, (Reported) Entered as Reported by: DONATO MORRISON on 04/20/20 1038 Nitroglycerin (Nitroglycerin) 0.4 Mg Tab.subl, 0.4 MG SL UD PRN for CHEST PAIN (ANGINA), (Reported) Entered as Reported by: DONATO MORRISON on 04/20/20 1038 Omeprazole (Omeprazole) 40 Mg Capsule.dr, 40 MG PO 0700,1700, (Reported) Entered as Reported by: CLARISA SOARES on 04/20/20615 Ondansetron (Ondansetron Odt) 4 Mg Tab.rapdis, 4 MG PO Q6H PRN for NAUSEA/VOMITING Prescribed by: TORY DASILVA on 06/23/20 0908 Potassium Chloride (K-Tab ER) 8 Meq Tablet.er, 16 MEQ PO DAILY, (Reported) Entered as Reported by: CLARISA SOARES on 04/20/20 0616 Sertraline HCl (Sertraline HCl) 50 Mg Tablet, 50 MG PO 1700, (Reported) Entered as Reported by: CLARISA SOARES on 04/20/20 0616 Sulfamethoxazole/Trimethoprim (Bactrim Ds Tablet) 1 Each Tablet, 1 EACH PO BID Prescribed by: MERCEDES SPARROW on 09/12/20 0943 Zolpidem Tartrate (Ambien) 10 Mg Tablet, 10 MG PO HS, (Reported) Entered as Reported by: CLARISA SOARES on 04/20/20 06 Review of Systems Constitutional: No chills, No diaphoresis, No fever EENTM: No ear discharge, No ear pain Respiratory: cough; No phlegm, No short of breath, No wheezing Cardiovascular: No chest pain, No Hx of Intervention, No palpitations; syncope Gastrointestinal: see HPI; No abdominal pain, No constipation, No diarrhea, No nausea Genitourinary: No discharge, No dysuria Musculoskeletal: No back pain, No joint pain All Other Systems Reviewed Negative Unless Noted: Yes Past Crgunzs-Ehdmhr-Ecetkp Hx Patient Social History Tobacco Use?: No Use of E-Cig and/or Vaping dev: No Immunizations Up To Date Tetanus Booster (TDap): Unknown Seasonal Allergies Seasonal Allergies: No Past Medical History Surgeries: Yes (Bilat "lens" implants, Laminectomy, Ablation, Cardiac stent, ) Cardiac, Coronary Stent, Gallbladder, Orthopedic, Pacemaker, Valve Replacement Respiratory: Yes (Exertional SOA; PULMONARY FIBROSIS; SILICOSIS) Asthma, Sleep Apnea, COPD Currently Using CPAP: Yes Currently Using BIPAP: No Cardiac: Yes (SVT; AFIB & FLUTTER;STEMI 04/13/15;ABLATION; PACEMAKER; TAVR;STENTS) Atrial Fibrillation, Coronary Artery Disease, Heart Attack, High Cholesterol, Hypertension, Irregular Heartbeat, Valvular Heart Disease Neurological: Yes (BALANCE PROBLEMS) Genitourinary: No Gastrointestinal: Yes (S/P CHOLECYSTECTOMY) Endocrine: Yes (OBESITY) Diabetes, Insulin dep HEENT: Yes (BILATERAL CATARACT SURGERY) Cataract, Macular Degeneration Hearing Impairment: Hard of Hearing Cancer: No Psychosocial: No Integumentary: No Family Medical History PAST SURGICAL HISTORY: -OPEN CHOLECYSTECTOMY -CARDIAC CATHS--STENT X2--07/2007 AND HAD NC WITH STENT 04/03/15 -DUAL CHAMBER PACEMAKER--GARCIA--RIGHT CHEST -CARDIAC ABLATION 11/05/16 -TAVR 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 oz. kg; 33.20 BMI Method: General Appearance: No Apparent Distress, Obese HEENT: PERRL/EOMI, Normal ENT Inspection, Pharynx Normal, Moist Mucous Membran es Neck: Full Range of Motion, Normal Inspection Cardiovascular: Regular Rate, Rhythm, No Edema, Normal Peripheral Pulses Respiratory: Lungs Clear, Normal Breath Sounds, No Accessory Muscle Use, No Respiratory Distress Gastrointestinal: Normal Bowel Sounds, No Organomegaly, Non Tender, Soft Neurologic/Psychiatric: Alert, Oriented x3, Normal Mood/Affect, die presser II-XII Norm as Tested Cranial Nerves: Normal Hearing, Normal Speech, PERRL Motor/Sensory: No Motor Deficit, No Sensory Deficit Skin: Normal Color, Warm/Dry Progress/Results/Core Measures Results/Orders Lab Results Laboratory Tests Test 05/02/21 23:00 05/02/21 23:52 05/03/21 02:00 Range/Units White Blood Count 10.0 4.3-11.0 10^3/uL Red Blood Count 4.38 4.30-5.52 10^6/uL Hemoglobin 12.6 L 13.3-17.7 g/dL Hematocrit 40 40-54 % Mean Corpuscular Volume 91 80-99 fL Mean Corpuscular Hemoglobin 29 25-34 pg Mean Corpuscular Hemoglobin Concent 32 32-36 g/dL Red Cell Distribution Width 15.1 H 10.0-14.5 % Platelet Count 98 L 130-400 10^3/uL Mean Platelet Volume 12.7 H 9.0-12.2 fL Immature Granulocyte % (Auto) 1 % Neutrophils (%) (Auto) 71 42-75 % Lymphocytes (%) (Auto) 20 12-44 % Monocytes (%) (Auto) 6 0-12 % Eosinophils (%) (Auto) 2 0-10 % Basophils (%) (Auto) 1 0-10 % Neutrophils # (Auto) 7.0 1.8-7.8 10^3/uL Lymphocytes # (Auto) 2.0 1.0-4.0 10^3/uL Monocytes # (Auto) 0.6 0.0-1.0 10^3/uL Eosinophils # (Auto) 0.2 0.0-0.3 10^3/uL Basophils # (Auto) 0.1 0.0-0.1 10^3/uL Immature Granulocyte # (Auto) 0.1 0.0-0.1 10^3/uL Percent Immature Platelet Fraction 8.4 H 0.0-7.6 % Sodium Level 141 135-145 MMOL/L Potassium Level 4.5 3.6-5.0 MMOL/L Chloride Level 110 H 98-107 MMOL/L Carbon Dioxide Level 20 L 21-32 MMOL/L Anion Gap 11 5-14 MMOL/L Blood Urea Nitrogen 24 H 7-18 MG/DL Creatinine 1.52 H 0.60-1.30 MG/DL Estimat Glomerular Filtration Rate 44 BUN/Creatinine Ratio 16 Glucose Level 260 H 70-105 MG/DL Calcium Level 8.8 8.5-10.1 MG/DL Corrected Calcium 9.2 8.5-10.1 MG/DL Total Bilirubin 0.3 0.1-1.0 MG/DL Aspartate Amino Transf (AST/SGOT) 18 5-34 U/L Alanine Aminotransferase (ALT/SGPT) 14 0-55 U/L Alkaline Phosphatase 80 40-136 U/L Troponin I 0.030 H < 0.028 <0.028 NG/ML C-Reactive Protein High Sensitivity 0.31 0.00-0.50 MG/DL B-Type Natriuretic Peptide 109.6 H <100.0 PG/ML Total Protein 6.3 L 6.4-8.2 GM/DL Albumin 3.5 3.2-4.5 GM/DL Urine Color YELLOW Urine Clarity CLEAR Urine pH 6.0 5-9 Urine Specific [place] >=1.030 1.016-1.022 Urine Protein NEGATIVE NEGATIVE Urine Glucose (UA) 2+ H NEGATIVE Urine Ketones NEGATIVE NEGATIVE Urine Nitrite NEGATIVE NEGATIVE Urine Bilirubin NEGATIVE NEGATIVE Urine Urobilinogen 0.2 < = 1.0 MG/DL Urine Leukocyte Esterase NEGATIVE NEGATIVE Urine RBC (Auto) TRACE-I H NEGATIVE Urine RBC NONE /HPF Urine WBC RARE /HPF Urine Squamous Epithelial Cells 0-2 /HPF Urine Crystals NONE /LPF Urine Bacteria NEGATIVE /HPF Urine Casts NONE /LPF Urine Mucus NEGATIVE /LPF Urine Culture Indicated NO My Orders Orders - CHANA MCNEILL Chest 1 View, Ap/Pa Only (05/02/21 23:10) Cbc With Automated Diff (05/02/21 23:10) Comprehensive Metabolic Panel (05/02/21 23:10) Hs C Reactive Protein (05/02/21 23:10) Ua Culture If Indicated (05/02/21 23:10) Bnp [place] (05/02/21 23:10) Orthostatic Vital Signs (Adult (05/02/21 23:10) Ekg Tracing (05/02/21 23:10) Continuous Ekg Monitoring (05/02/21 23:10) Troponin I [place] (05/02/21 23:10) Ed Iv/Invasive Line Start (05/02/21 23:19) Ns Iv 500 Ml (Sodium Chloride 0.9%) (05/02/21 23:30) Troponin I [place] (05/03/21 02:00) Medications Given in ED Current Medications Medications Dose Ordered Sig/Vickie Route Start Time Stop Time Status Last Admin Dose Admin Sodium Chloride 500 ml @ 0 mls/hr Q0M ONCE IV 05/02/21 23:30 05/02/21 23:32 DC 05/02/21 23:49 500 MLS/HR Vital Signs/I&O 05/02/21 05/03/21 22:55 02:21 Temp 35.9 Pulse 70 70 70 70 Resp 18 B/P (MAP) 131/70 (90) 123/89 (100) 133/75 (94) 120/81 (94) Pulse Ox 98 O2 Delivery Room Air Progress Progress Note #1: Time: 23:15 Progress Note Likely had a vasovagal near syncopal event as he was changing positions from sitting to standing. He says he been sitting up for a few hours. We will check some labs give him a 500 cc bolus of fluids and get some orthostats as well as a chest x-ray EKG troponin BMP. He is in no acute distress and has normal vital signs at this time. Progress Note #2: Time: 03:15 Progress Note Orthostatic vital signs were unremarkable. Repeat troponin was undetectable. Patient has had no material deterioration to his ER stay. He is having no pain and is ready to go home. 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 Initial ECG Impression Date: May 02, 2021 Initial ECG Impression Time: 23:00 Initial ECG Rate: 75 Initial ECG Intervals: Normal Initial ECG Impression: Normal Initial ECG Comparisson: Unchanged Comment Atrial paced complexes with PVCs no clinically relevant ST changes. Diagnostic Imaging Diagonstic Imaging: Xray Plain Films/CT/US/NM/MRI: chest Comments [facility], [place] NAME: KAREN CARTER MED REC#: [id number] PT STATUS: REG ER : 1935 PHYSICIAN: CHANA MCNEILL MD ADMIT DATE: 05/02/21/ER Draft Date of Exam:05/02/21 CHEST 1 VIEW, AP/PA ONLY Clinical indications: Patient with near syncope. EXAM: Portable chest x-ray upright view. COMPARISON: Chest x-ray dated 06/23/2020. FINDINGS: Lungs/pleura: There is mild left basilar atelectasis. There is no lung infiltrate. There is no pneumothorax. There is no pleural effusion. Mediastinum: Unremarkable. Pulmonary vasculature: Unremarkable. Heart: Unremarkable. Bones/extrathoracic soft tissue: Unremarkable. IMPRESSION: 1: There is no interval no radiographic evidence of acute cardiopulmonary process. 2: There is mild left basilar atelectasis. Dictated on workstation # [id number] Dict: 05/03/21 0001 Trans: 05/03/21 0015 CYRIL [id number] Interpreted by: VICTORIANO MILLER MD Electronically signed by: Reviewed: Reviewed by Me Consults : Consulting Physician: SAMIR NORIEGA MD Consults Notes Discussed the case with Dr. Noriega, cardiology on-call. He has a MPI that was negative from 3 months ago. He does not feel that we need to do anything more than do a delta troponin in 3 hours. The patient is asymptomatic. Delta troponin at 0200. Departure Impression Primary Impression: Syncope, near Disposition: 01 HOME, SELF-CARE Condition: Stable Departure-Patient Inst. Decision time for Depature: 03:15 Referrals: ADAM MAHONEY (PCP) Primary Care Physician Patient Instructions: Vasovagal Response (DC), Syncope (Fainting) Add. Discharge Instructions: Call your launch engineer and make a follow-up appointment in the next 1 to 2 weeks. Take your time when standing up especially after having been in the seated or lying position for more than an hour or 2. Return to the ER for significant chest pain or other worrisome symptoms. All discharge instructions reviewed with patient and/or family. Voiced understanding. CHANA MCNEILL May 02, 2021 23:18
[2021-05-02 23:20] LABS: BASOPHILS # (AUTO) 0.1 10^3/uL (0.0-0.1); BASOPHILS % (AUTO) 1 % (0-10); EOSINOPHILS # (AUTO) 0.2 10^3/uL (0.0-0.3); EOSINOPHILS % (AUTO) 2 % (0-10); HEMOGLOBIN 12.6 g/dL (13.3-17.7); LYMPHOCYTES % (AUTO) 20 % (12-44); MEAN CORPUSCULAR HEMOGLOBIN 29 pg (25-34); MEAN CORPUSCULAR HGB CONC 32 g/dL (32-36); MEAN CORPUSCULAR VOLUME 91 fL (80-99); MEAN PLATELET VOLUME 12.7 fL (9.0-12.2); MONOCYTES % (AUTO) 6 % (0-12); NEUTROPHILS % (AUTO) 71 % (42-75); PLATELET COUNT 98 10^3/uL (130-400)
[2021-05-02 23:22] LABS: ALBUMIN 3.5 GM/DL (3.2-4.5)
[2021-05-02 23:23] LABS: POTASSIUM 4.5 MMOL/L (3.6-5.0)
[2021-05-02 23:24] LABS: CALCIUM 8.8 MG/DL (8.5-10.1)
[2021-05-02 23:25] LABS: TOTAL PROTEIN 6.3 GM/DL (6.4-8.2)
[2021-05-02 23:27] LABS: BILIRUBIN,TOTAL 0.3 MG/DL (0.1-1.0)
[2021-05-02 23:29] LABS: CREATININE SERUM 1.52 MG/DL (0.60-1.30)
[2021-05-02] MEDS ORDERED: NS IV 500 ML 500 ML IV ONE (23:30)
[2021-05-03 00:09] LABS: BILIRUBIN,URINE NEGATIVE (NEGATIVE); CLARITY,URINE CLEAR; COLOR,URINE YELLOW; GLUCOSE, URINE (UA) 2+ (NEGATIVE); KETONES,URINE NEGATIVE (NEGATIVE); LEUKOCYTE ESTERASE ,URINE NEGATIVE (NEGATIVE); NITRITE,URINE NEGATIVE (NEGATIVE); PROTEIN,URINE NEGATIVE (NEGATIVE)
--- NOTE | 2021-05-03 00:15 | Diagnostic Imaging Report ---
Clinical indications: Patient with near syncope. EXAM: Portable chest x-ray upright view. COMPARISON: Chest x-ray dated 06/23/2020. FINDINGS: Lungs/pleura: There is mild left basilar atelectasis. There is no lung infiltrate. There is no pneumothorax. There is no pleural effusion. Mediastinum: Unremarkable. Pulmonary vasculature: Unremarkable. Heart: Unremarkable. Bones/extrathoracic soft tissue: Unremarkable. IMPRESSION: 1: There is no interval no radiographic evidence of acute cardiopulmonary process. 2: There is mild left basilar atelectasis. Dictated by: Dictated on workstation # [id number]
[2021-05-03 00:38] LABS: BACTERIA,URINE NEGATIVE /HPF; SQUAMOUS EPITHELIAL CELL,UR 0-2 /HPF; WBC,URINE RARE /HPF
[2021-05-03 02:21] VITALS: BP_SYST 120; BP_SYST 123; BP_SYST 133; BP_DIAS 75; BP_DIAS 81; BP_DIAS 89
== END 2021-05-03 04:20 | disposition home or self-care (01) ==
LOC: EDUNIT# 22:53 → ER 22:55
DX: R55 Syncope and collapse (principal); J44.9 Chronic obstructive pulmonary disease, unspecified; G47.30 Sleep apnea, unspecified; I25.2 Old myocardial infarction; I10 Essential (primary) hypertension; E66.9 Obesity, unspecified; E78.00 Pure hypercholesterolemia, unspecified; I25.10 Atherosclerotic heart disease of native coronary artery without angina pectoris; I48.91 Unspecified atrial fibrillation; E11.9 Type 2 diabetes mellitus without complications; Z68.33 Body mass index [BMI] 33.0-33.9, adult; Z79.4 Long term (current) use of insulin; Z79.82 Long term (current) use of aspirin; Z79.01 Long term (current) use of anticoagulants; Z79.899 Other long term (current) drug therapy
CPT/HCPCS: 36415; 71045; 80053; 81000; 83880; 84484; 85025; 86141; 93005

== ENCOUNTER → 2021-07-18 | Outpatient (CLI) | payer MEDICARE, MEDICAID ==
[~2021-07-18] MED LIST changes: +RT-ALBUTEROL SULF 2.5 MG/3 ML PRE-MIX VIAL INH ONE
== END ==
LOC: RT 13:00
PROVIDERS: ATTEND Nurse Practitioner Family
DX: J44.9 Chronic obstructive pulmonary disease, unspecified (principal); Z87.09 Personal history of other diseases of the respiratory system
CPT/HCPCS: 94060; 94726; 94729

== ENCOUNTER 2021-10-10 20:53 | Emergency (ER) | payer MEDICARE, MEDICAID ==
[~2021-10-10] VITALS: Ht 185.4 cm; Wt 117.0 kg
[~2021-10-10 20:53] MED LIST changes: -RT-ALBUTEROL SULF 2.5 MG/3 ML PRE-MIX VIAL INH ONE
[2021-10-10 21:00] VITALS: BP 126/63
--- NOTE | 2021-10-10 21:09 | ED Neurological Problem ---
General Chief Complaint: Neurological Problems Stated Complaint: TINGLING Nursing Triage Note: brought in by [facility] from home c/o intermittant right sided "tingling" no deficits noted. denies complaints. at this time denies tingling. Source: patient (PT IS LIMITED HISTORIAN), EMS, old records Allergies and Home Medications Allergies Coded Allergies: Penicillins (Verified Allergy, Unknown, Anaphylaxis, 02/27/20) promethazine (Verified Allergy, Unknown, Anaphylaxis, 02/27/20) ramelteon (Verified Allergy, Unknown, Shortness of Breath, 02/27/20) "Severe bronchospasm" sotalol (Verified Allergy, Unknown, Shortness of Breath, 02/27/20) "Severe bronchospasm" Patient Home Medication List Acetaminophen (Tylenol) 325 Mg Tablet, 650 MG PO Q6H PRN for PAIN-MODERATE (5-7) Prescribed by: MERCEDES VAZQUEZ on 09/12/20 0945 Albuterol Sulfate (Ventolin Hfa) 18 Gm Hfa.aer.ad, 2 PUFF INH Q4H PRN for SHORTNESS OF BREATH, (Reported) Entered as Reported by: DONATO MORRISON on 04/20/20 1038 Antiox#10/Om3/Dha/Epa/Lut/Zeax (I-Caps with Lutein-Morris 3 Sfg) 1 Each Capsule, 1 EACH PO DAILY, (Reported) Entered as Reported by: DONATO MORRISON on 04/20/20 1038 Apixaban (Eliquis) 5 Mg Tablet, 5 MG PO 0700,1700, (Reported) Entered as Reported by: CLARISA SOARES on 04/20/20 0616 Aspirin (Aspirin EC) 81 Mg Tablet.dr, 162 MG PO HS, (Reported) Entered as Reported by: DONATO MORRISON on 04/20/20 1049 Atorvastatin Calcium (Atorvastatin Calcium) 20 Mg Tablet, 20 MG PO HS, (Reported) Entered as Reported by: CLARISA SOARES on 04/20/20 0616 Calcium Carbonate/Vitamin D3 (Calcium 600 + Vit D3 400 Tab) 1 Each Tablet, 1 EACH PO DAILY, (Reported) Entered as Reported by: CLARISA SOARES on 04/20/20 0616 Diphenoxylate HCl/Atropine (Lomotil 2.5-0.025 mg Tablet) 1 Each Tablet, 1 EACH PO Q6H PRN for DIARRHEA Prescribed by: TORY DASILVA on 06/23/20 0908 Empagliflozin (Jardiance) 10 Mg Tablet, 10 MG PO DAILY, (Reported) Entered as Reported by: EMELYN CABRERA on 09/12/20 07 Fluticasone/Umeclidin/Vilanter (Trelegy Ellipta 100-62.5-25) 1 Each Blst.w.dev, 1 PUFF INH HS, (Reported) Entered as Reported by: CLARISA SOARES on 04/20/20615 Furosemide (Furosemide) 20 Mg Tablet, 20 MG PO DAILY, (Reported) Entered as Reported by: EMELYN CABRERA on 09/12/20741 Insulin Aspart (Novolog Flexpen) 300 Units/3 Ml Solution, 22 UNITS SQ DAILY BEFORE BREAKFAST, (Reported) Entered as Reported by: CLARISA SOARES on 04/20/20615 Insulin Aspart (Novolog Flexpen) 300 Units/3 Ml Solution, 18 UNITS SQ 1200 BEFORE LUNCH, (Reported) Entered as Reported by: CLARISA SOARES on 04/20/20615 Insulin Aspart (Novolog Flexpen) 300 Units/3 Ml Solution, 24 UNITS SQ 1700 BEFORE DINNER, (Reported) Entered as Reported by: CLARISA SOARES on 04/20/20615 Insulin Detemir (Levemir Flextouch) 100 Unit/1 Ml Insuln.pen, 70 UNITS SQ DAILY, (Reported) Entered as Reported by: CLARISA SOARES on 04/20/20615 Insulin Detemir (Levemir Flextouch) 100 Unit/1 Ml Insuln.pen, 80 UNIT SQ HS, (Reported) Entered as Reported by: CLARISA SOARES on 04/20/20615 Lorazepam (Ativan) 0.5 Mg Tablet, 0.5-1 MG PO DAILY PRN for MUSCLE SPASMS, (Reported) Entered as Reported by: CLARISA SOARES on 04/20/20615 Losartan Potassium (Losartan Potassium) 25 Mg Tablet, 25 MG PO DAILY, (Reported) Entered as Reported by: CLARISA SOARES on 04/20/20615 Magnesium Carbonate/Al Hydrox (Gaviscon Es Tablet Chew) 1 Each Tab.chew, 1 EACH PO UD PRN for HEARTBURN, (Reported) Entered as Reported by: CLARISA SOARES on 04/20/20615 Metoprolol Tartrate (Metoprolol Tartrate) 50 Mg Tablet, 50 MG PO 0700,1700, (Reported) Entered as Reported by: CLARISA SOARES on 04/20/20615 Multivit-Min/FA/Lycopene/Lut (Centrum Silver Tablet) 1 Each Tablet, 1 EACH PO DAILY, (Reported) Entered as Reported by: DONATO MORRISON on 04/20/20 1038 Nitroglycerin (Nitroglycerin) 0.4 Mg Tab.subl, 0.4 MG SL UD PRN for CHEST PAIN (ANGINA), (Reported) Entered as Reported by: DONATO MORRISON on 04/20/20 1038 Omeprazole (Omeprazole) 40 Mg Capsule.dr, 40 MG PO 0700,1700, (Reported) Entered as Reported by: CLARISA SOARES on 04/20/20615 Ondansetron (Ondansetron Odt) 4 Mg Tab.rapdis, 4 MG PO Q6H PRN for NAUSEA/VOMITING Prescribed by: TORY DASILVA on 06/23/20 0908 Potassium Chloride (K-Tab ER) 8 Meq Tablet.er, 16 MEQ PO DAILY, (Reported) Entered as Reported by: CLARISA SOARES on 04/20/20615 Sertraline HCl (Sertraline HCl) 50 Mg Tablet, 50 MG PO 1700, (Reported) Entered as Reported by: CLARISA SOARES on 04/20/20615 Sulfamethoxazole/Trimethoprim (Bactrim Ds Tablet) 1 Each Tablet, 1 EACH PO BID Prescribed by: MERCEDES VAZQUEZ on 09/12/20 0943 Zolpidem Tartrate (Ambien) 10 Mg Tablet, 10 MG PO HS, (Reported) Entered as Reported by: CLARISA SOARES on 04/20/20615 Past Mgnisie-Cjvqps-Qdhcuq Hx Patient Social History Tobacco Use?: No Substance use?: No Alcohol Use?: No Pt feels they are or have been: No Immunizations Up To Date Tetanus Booster (TDap): Unknown First/Initial COVID19 Vaccinat: JULY 2020 Second COVID19 Vaccination Naeem: JULY 2020 Seasonal Allergies Seasonal Allergies: No Past Medical History Surgery/Hospitalization HX: lumbag laminectomy, bilateral cataracts, cardiac ablation, coronary stent, gallbladder, ortho, ppm, tavr pulmonary fibrosis, cilicosis, asthma, moreno, copd, svt, afib/flutter, stemi Surgeries: Yes (Bilat "lens" implants, Laminectomy, Ablation, Cardiac stent, ) Cardiac, Coronary Stent, Gallbladder, Orthopedic, Pacemaker, Valve Replacement Respiratory: Yes (Exertional SOA; PULMONARY FIBROSIS; SILICOSIS) Asthma, Sleep Apnea, COPD Currently Using CPAP: Yes Currently Using BIPAP: No Cardiac: Yes (SVT; AFIB & FLUTTER;STEMI 04/13/15;ABLATION; PACEMAKER; TAVR;STENTS) Atrial Fibrillation, Coronary Artery Disease, Heart Attack, High Cholesterol, Hypertension, Irregular Heartbeat, Valvular Heart Disease Neurological: Yes (BALANCE PROBLEMS) Genitourinary: No Gastrointestinal: Yes (S/P CHOLECYSTECTOMY) Endocrine: Yes (OBESITY) Diabetes, Insulin dep HEENT: Yes (BILATERAL CATARACT SURGERY) Cataract, Macular Degeneration Hearing Impairment: Hard of Hearing Cancer: No Psychosocial: No Integumentary: No Family Medical History PAST SURGICAL HISTORY: -OPEN CHOLECYSTECTOMY -CARDIAC CATHS--STENT X2--07/2007 AND HAD AL WITH STENT 04/03/15 -DUAL CHAMBER PACEMAKER--GARCIA--RIGHT CHEST -CARDIAC ABLATION 11/05/16 -TAVR 12/23/17 -LUNG BIOPSY 02/17/19 -BILATERAL CATARACT SURGERY 03/2019 Physical Exam Vital Signs Vital Signs - First Documented 10/10/21 20:53 Temp 36.9 Pulse 74 Resp 14 B/P (MAP) 126/63 (84) Pulse Ox 96 O2 Delivery Room Air Capillary Refill : Less Than 3 Seconds Height, Weight, BMI Height: '" Weight: lbs. oz. kg; 34.00 BMI Method: Progress/Results/Core Measures Results/Orders Lab Results Laboratory Tests Test 10/10/21 21:13 10/10/21 22:18 Range/Units White Blood Count 12.7 H 4.3-11.0 10^3/uL Red Blood Count 4.52 4.30-5.52 10^6/uL Hemoglobin 13.3 13.3-17.7 g/dL Hematocrit 41 40-54 % Mean Corpuscular Volume 91 80-99 fL Mean Corpuscular Hemoglobin 29 25-34 pg Mean Corpuscular Hemoglobin Concent 32 32-36 g/dL Red Cell Distribution Width 15.7 H 10.0-14.5 % Platelet Count 121 L 130-400 10^3/uL Mean Platelet Volume 11.6 9.0-12.2 fL Immature Granulocyte % (Auto) 1 % Neutrophils (%) (Auto) 73 42-75 % Lymphocytes (%) (Auto) 18 12-44 % Monocytes (%) (Auto) 6 0-12 % Eosinophils (%) (Auto) 2 0-10 % Basophils (%) (Auto) 1 0-10 % Neutrophils # (Auto) 9.2 H 1.8-7.8 10^3/uL Lymphocytes # (Auto) 2.2 1.0-4.0 10^3/uL Monocytes # (Auto) 0.8 0.0-1.0 10^3/uL Eosinophils # (Auto) 0.3 0.0-0.3 10^3/uL Basophils # (Auto) 0.1 0.0-0.1 10^3/uL Immature Granulocyte # (Auto) 0.1 0.0-0.1 10^3/uL Percent Immature Platelet Fraction 7.1 0.0-7.6 % Prothrombin Time 17.1 H 12.2-14.7 SEC INR Comment 1.4 0.8-1.4 Activated Partial Thromboplast Time 35 24-35 SEC D-Dimer 0.48 0.00-0.49 UG/ML Sodium Level 141 135-145 MMOL/L Potassium Level 4.1 3.6-5.0 MMOL/L Chloride Level 110 H 98-107 MMOL/L Carbon Dioxide Level 22 21-32 MMOL/L Anion Gap 9 5-14 MMOL/L Blood Urea Nitrogen 25 H 7-18 MG/DL Creatinine 1.41 H 0.60-1.30 MG/DL Estimat Glomerular Filtration Rate 49 BUN/Creatinine Ratio 18 Glucose Level 83 70-105 MG/DL Calcium Level 9.2 8.5-10.1 MG/DL Corrected Calcium 9.4 8.5-10.1 MG/DL Total Bilirubin 0.6 0.1-1.0 MG/DL Aspartate Amino Transf (AST/SGOT) 18 5-34 U/L Alanine Aminotransferase (ALT/SGPT) 19 0-55 U/L Alkaline Phosphatase 73 40-136 U/L Troponin I < 0.028 <0.028 NG/ML Total Protein 6.0 L 6.4-8.2 GM/DL Albumin 3.8 3.2-4.5 GM/DL Glucometer 75 70-110 MG/DL My Orders Orders - MARYJO MILLER DO Cbc With Automated Diff (10/10/21 21:05) Protime With Inr (10/10/21 21:05) Partial Thromboplastin Time (10/10/21 21:05) Comprehensive Metabolic Panel (10/10/21 21:05) Fibrin Degradation Products (10/10/21 21:05) Troponin I [place] (10/10/21 21:05) Ua Culture If Indicated (10/10/21 21:05) Chest 1 View, Ap/Pa Only (10/10/21 21:05) Ekg Tracing (10/10/21 21:05) Nothing By Mouth (10/11/21 Breakfast) Accucheck Stat ONCE (10/10/21 21:05) Ed Iv/Invasive Line Start (10/10/21 21:05) Ed Iv/Invasive Line Start (10/10/21 21:05) Vital Signs Stroke Patient Q15M (10/10/21 21:05) Ct Head Wo-R/O Stroke (10/10/21 21:05) O2 (10/10/21 21:05) Intake & Output 06,14,22 (10/10/21 21:05) Monitor-Rhythm Ecg Trace Only (10/10/21 21:05) Dysphagia Screening Tool Q10MX1 (10/10/21 21:05) Vital Signs/I&O 10/10/21 20:53 Temp 36.9 Pulse 74 Resp 14 B/P (MAP) 126/63 (84) Pulse Ox 96 O2 Delivery Room Air Blood Pressure Mean: 84 Diagnostic Imaging Comments CXR--PER RADIOLOGIST REPORT AT 2219 FINDINGS: Low lung volumes. Normal heart size and central pulmonary vascularity. Right basilar and perihilar atelectasis or infiltrate. No definite pleural effusion. No pneumothorax. Cardiac pacer. IMPRESSION: Low lung volumes with atelectasis or infiltrate in the medial right lung base. CT HEAD--PER RADIOLOGIST REPORT AT 2230 FINDINGS: Advanced generalized parenchymal volume loss and leukoaraiosis. 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 No CT evidence of an acute territorial infarction. Intracranial vascular calcifications. No intracranial hemorrhage, mass effect, hydrocephalus or extra-axial fluid collection. Osseous structures are intact. Visualized paranasal sinuses and mastoids are unremarkable. IMPRESSION: No acute intracranial CT finding. Stable chronic findings as above. Reviewed: Reviewed by Me Departure Communication (Admissions) 1310--DISCUSSED WITH DR. FORDE, HOSPITALIST FOR [facility]. SHE ADVISES TO SEND PT HOME, HE HAS BEEN ASYMPTOMATIC DURING ER STAY, AND HE IS ALREADY ON ASPIRIN AND ELIQUIS, AND WOULD NOT BE A GOOD SURGICAL CANDIDATE OR THROMBOLYTIC CANDIDATE. Impression Primary Impression: TRANSIENT RIGHT ARM PARESTHESIAS Disposition: HOME, SELF-CARE Condition: Stable Departure-Patient Inst. Decision time for Depature: 22:48 Referrals: ADAM MAHONEY (PCP) Primary Care Physician [facility]/LAUR[facility] (Family) Primary Care Physician Patient Instructions: Paresthesia (DC) Add. Discharge Instructions: CONTINUE YOUR MEDICATIONS PRESCRIBED FOLLOW UP WITH DR. TUCKER/[facility] IN 1-2 DAYS FOR FURTHER CARE, RETURN TO ER IF SYMPTOMS RETURN. All discharge instructions reviewed with patient and/or family. Voiced understanding. MARYJO MILLER DO Oct 10, 2021 21:09
[2021-10-10 21:24] LABS: BASOPHILS # (AUTO) 0.1 10^3/uL (0.0-0.1); BASOPHILS % (AUTO) 1 % (0-10); EOSINOPHILS # (AUTO) 0.3 10^3/uL (0.0-0.3); EOSINOPHILS % (AUTO) 2 % (0-10); HEMATOCRIT 41 % (40-54); HEMOGLOBIN 13.3 g/dL (13.3-17.7); LYMPHOCYTES # (AUTO) 2.2 10^3/uL (1.0-4.0); MEAN CORPUSCULAR VOLUME 91 fL (80-99); NEUTROPHILS % (AUTO) 73 % (42-75)
[2021-10-10 21:26] LABS: MEAN CORPUSCULAR HEMOGLOBIN 29 pg (25-34); MEAN CORPUSCULAR HGB CONC 32 g/dL (32-36); MEAN PLATELET VOLUME 11.6 fL (9.0-12.2); PLATELET COUNT 121 10^3/uL (130-400); WHITE BLOOD COUNT 12.7 10^3/uL (4.3-11.0)
[2021-10-10 21:27] LABS: LYMPHOCYTES % (AUTO) 18 % (12-44); MONOCYTES # (AUTO) 0.8 10^3/uL (0.0-1.0); MONOCYTES % (AUTO) 6 % (0-12); NEUTROPHILS # (AUTO) 9.2 10^3/uL (1.8-7.8)
[2021-10-10 21:32] LABS: ALBUMIN 3.8 GM/DL (3.2-4.5); CHLORIDE 110 MMOL/L (98-107); POTASSIUM 4.1 MMOL/L (3.6-5.0); SODIUM 141 MMOL/L (135-145)
[2021-10-10 21:34] LABS: CALCIUM 9.2 MG/DL (8.5-10.1)
[2021-10-10 21:35] LABS: GLUCOSE 83 MG/DL (70-105)
[2021-10-10 21:36] LABS: CARBON DIOXIDE 22 MMOL/L (21-32)
[2021-10-10 21:37] LABS: BILIRUBIN,TOTAL 0.6 MG/DL (0.1-1.0); FIBRIN DEGRADATION PRODUCTS 0.48 UG/ML (0.00-0.49); INR 1.4 (0.8-1.4); PROTHROMBIN TIME PATIENT 17.1 SEC (12.2-14.7)
--- NOTE | 2021-10-10 21:37 | Diagnostic Imaging Report ---
EXAM: Chest 1 view, AP/PA only INDICATION: Stroke. Right-sided tingling. COMPARISON: 05/02/2021. FINDINGS: Low lung volumes. Normal heart size and central pulmonary vascularity. Right basilar and perihilar atelectasis or infiltrate. No definite pleural effusion. No pneumothorax. Cardiac pacer. IMPRESSION: Low lung volumes with atelectasis or infiltrate in the medial right lung base. Dictated by: Dictated on workstation # [id number]
[2021-10-10 21:38] LABS: ALKALINE PHOSPHATASE 73 U/L (40-136); CREATININE SERUM 1.41 MG/DL (0.60-1.30); GFR ESTIMATED 49
[2021-10-10 21:39] LABS: BUN/CREATININE RATIO 18
[2021-10-10 21:41] LABS: ALANINE AMINOTRANSFERASE 19 U/L (0-55)
--- NOTE | 2021-10-10 22:25 | Diagnostic Imaging Report ---
PROCEDURE: CT head w/o r/o stroke. TECHNIQUE: Multiple contiguous axial images were obtained through the brain without the use of intravenous contrast. Auto Exposure Controls were utilized during the CT exam to meet ALARA standards for radiation dose reduction. INDICATION: Neurologic deficit. Stroke. Right-sided tingling. COMPARISON: CT head without contrast 02/27/2020. FINDINGS: Advanced generalized parenchymal volume loss and leukoaraiosis. 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 No CT evidence of an acute territorial infarction. Intracranial vascular calcifications. No intracranial hemorrhage, mass effect, hydrocephalus or extra-axial fluid collection. Osseous structures are intact. Visualized paranasal sinuses and mastoids are unremarkable. IMPRESSION: No acute intracranial CT finding. Stable chronic findings as above. Dictated by: Dictated on workstation # [id number]
[2021-10-10 23:56] VITALS: BP 110/58
== END 2021-10-10 23:02 | disposition home or self-care (01) ==
LOC: EDUNIT# 20:53 → ER 20:57
DX: R20.2 Paresthesia of skin (principal); G47.33 Obstructive sleep apnea (adult) (pediatric); I25.10 Atherosclerotic heart disease of native coronary artery without angina pectoris; I48.91 Unspecified atrial fibrillation; E11.9 Type 2 diabetes mellitus without complications; E66.9 Obesity, unspecified; Z68.34 Body mass index [BMI] 34.0-34.9, adult; Z99.89 Dependence on other enabling machines and devices; Z79.4 Long term (current) use of insulin; Z79.82 Long term (current) use of aspirin; Z79.01 Long term (current) use of anticoagulants
CPT/HCPCS: 36415; 70450; 71045; 80053; 82947; 84484; 85025; 85379; 85610; 85730; 93005; 93041

== ENCOUNTER 2021-11-16 10:52 | Emergency (ER) | payer MEDICARE, MEDICAID ==
[~2021-11-16] VITALS: Ht 185 cm; Wt 118.8 kg
[2021-11-16] MEDS ORDERED: LIDOCAINE UROJET 2% GEL 10 ML PKG TOP ONE (11:15)
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
[2021-11-16 11:56] LABS: BILIRUBIN,URINE NEGATIVE (NEGATIVE); CLARITY,URINE CLEAR; COLOR,URINE YELLOW; GLUCOSE, URINE (UA) 3+ (NEGATIVE); KETONES,URINE NEGATIVE (NEGATIVE); LEUKOCYTE ESTERASE ,URINE NEGATIVE (NEGATIVE); NITRITE,URINE NEGATIVE (NEGATIVE); PROTEIN,URINE NEGATIVE (NEGATIVE)
[2021-11-16 12:20] LABS: BACTERIA,URINE TRACE /HPF; CALCIUM OXALATE CRYSTALS,UR RARE /LPF; RBC,URINE RARE /HPF; SQUAMOUS EPITHELIAL CELL,UR RARE /HPF
[2021-11-16 12:53] LABS: LYMPHOCYTES % (AUTO) 16 % (12-44)
[2021-11-16 12:54] LABS: BASOPHILS # (AUTO) 0.1 10^3/uL (0.0-0.1); BASOPHILS % (AUTO) 1 % (0-10); EOSINOPHILS # (AUTO) 0.3 10^3/uL (0.0-0.3); EOSINOPHILS % (AUTO) 2 % (0-10); HEMATOCRIT 40 % (40-54); HEMOGLOBIN 12.9 g/dL (13.3-17.7); LYMPHOCYTES # (AUTO) 1.8 10^3/uL (1.0-4.0); MEAN CORPUSCULAR HEMOGLOBIN 30 pg (25-34); MEAN CORPUSCULAR HGB CONC 33 g/dL (32-36); MEAN CORPUSCULAR VOLUME 91 fL (80-99); MEAN PLATELET VOLUME 11.5 fL (9.0-12.2); MONOCYTES # (AUTO) 0.6 10^3/uL (0.0-1.0); MONOCYTES % (AUTO) 5 % (0-12); NEUTROPHILS # (AUTO) 8.9 10^3/uL (1.8-7.8); NEUTROPHILS % (AUTO) 76 % (42-75); PLATELET COUNT 109 10^3/uL (130-400); WHITE BLOOD COUNT 11.7 10^3/uL (4.3-11.0)
[2021-11-16 13:05] LABS: ALBUMIN 3.4 GM/DL (3.2-4.5)
[2021-11-16 13:06] LABS: POTASSIUM 4.5 MMOL/L (3.6-5.0)
[2021-11-16 13:07] LABS: CALCIUM 9.1 MG/DL (8.5-10.1)
[2021-11-16 13:08] LABS: TOTAL PROTEIN 5.5 GM/DL (6.4-8.2)
[2021-11-16 13:10] LABS: BILIRUBIN,TOTAL 0.5 MG/DL (0.1-1.0)
[2021-11-16 13:12] LABS: CREATININE SERUM 1.39 MG/DL (0.60-1.30)
[2021-11-16 13:40] VITALS: BP 139/71
== END 2021-11-16 13:43 | disposition home or self-care (01) ==
LOC: EDUNIT# 10:52 → ER 10:55
DX: R33.9 Retention of urine, unspecified (principal); E66.9 Obesity, unspecified; G47.33 Obstructive sleep apnea (adult) (pediatric); E11.22 Type 2 diabetes mellitus with diabetic chronic kidney disease; I12.9 Hypertensive chronic kidney disease with stage 1 through stage 4 chronic kidney disease, or unspecified chronic kidney disease; N18.9 Chronic kidney disease, unspecified; Z68.34 Body mass index [BMI] 34.0-34.9, adult; Z99.89 Dependence on other enabling machines and devices; Z79.4 Long term (current) use of insulin
CPT/HCPCS: 36415; 51702; 80053; 81000; 85025

== ENCOUNTER 2021-11-19 13:30 | Emergency (ER) | payer MEDICARE, MEDICAID ==
[~2021-11-19] VITALS: Ht 185 cm; Wt 99.7 kg
[2021-11-19] MEDS ORDERED: NS IV 500 ML 500 ML IV ONE ×2 (14:00→15:30)
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
[2021-11-19] MEDS ORDERED: NS IV 500 ML 500 ML ONE ×2 (14:09→15:30)
[2021-11-19 14:17] LABS: BASOPHILS # (AUTO) 0.1 10^3/uL (0.0-0.1); EOSINOPHILS # (AUTO) 0.2 10^3/uL (0.0-0.3); HEMATOCRIT 41 % (40-54); MEAN CORPUSCULAR HGB CONC 33 g/dL (32-36); MEAN CORPUSCULAR VOLUME 90 fL (80-99); MEAN PLATELET VOLUME 11.6 fL (9.0-12.2); MONOCYTES # (AUTO) 0.8 10^3/uL (0.0-1.0); MONOCYTES % (AUTO) 6 % (0-12)
[2021-11-19 14:19] LABS: BASOPHILS % (AUTO) 0 % (0-10); EOSINOPHILS % (AUTO) 2 % (0-10); HEMOGLOBIN 13.3 g/dL (13.3-17.7); LYMPHOCYTES % (AUTO) 15 % (12-44); MEAN CORPUSCULAR HEMOGLOBIN 29 pg (25-34); NEUTROPHILS # (AUTO) 10.5 10^3/uL (1.8-7.8); NEUTROPHILS % (AUTO) 77 % (42-75); PLATELET COUNT 126 10^3/uL (130-400); WHITE BLOOD COUNT 13.6 10^3/uL (4.3-11.0)
[2021-11-19 14:26] LABS: ALBUMIN 3.7 GM/DL (3.2-4.5); POTASSIUM 4.6 MMOL/L (3.6-5.0)
[2021-11-19 14:27] LABS: CALCIUM 9.3 MG/DL (8.5-10.1)
[2021-11-19 14:31] LABS: BILIRUBIN,TOTAL 0.7 MG/DL (0.1-1.0)
[2021-11-19 14:33] LABS: CREATININE SERUM 1.17 MG/DL (0.60-1.30)
[2021-11-19 15:14] LABS: BILIRUBIN,URINE NEGATIVE (NEGATIVE); CLARITY,URINE CLEAR; COLOR,URINE YELLOW; GLUCOSE, URINE (UA) 2+ (NEGATIVE); KETONES,URINE NEGATIVE (NEGATIVE); LEUKOCYTE ESTERASE ,URINE NEGATIVE (NEGATIVE); NITRITE,URINE NEGATIVE (NEGATIVE); PROTEIN,URINE NEGATIVE (NEGATIVE)
[2021-11-19 15:49] LABS: BACTERIA,URINE FEW /HPF; CALCIUM OXALATE CRYSTALS,UR FEW /LPF; HYALINE CASTS, URINE RARE /LPF; SQUAMOUS EPITHELIAL CELL,UR 0-2 /HPF; WBC,URINE 0-2 /HPF
[2021-11-19] MEDS ORDERED: CEPH500C PO (17:06)
[2021-11-19 17:24] VITALS: BP 104/78
== END 2021-11-19 17:24 | disposition home or self-care (01) ==
LOC: EDUNIT# 13:30 → ER 13:31
DX: N39.0 Urinary tract infection, site not specified (principal); E86.0 Dehydration; E11.9 Type 2 diabetes mellitus without complications; E66.9 Obesity, unspecified; G47.30 Sleep apnea, unspecified; J44.9 Chronic obstructive pulmonary disease, unspecified; Z96.0 Presence of urogenital implants; Z68.34 Body mass index [BMI] 34.0-34.9, adult; Z79.4 Long term (current) use of insulin; Z99.89 Dependence on other enabling machines and devices; Z90.49 Acquired absence of other specified parts of digestive tract
CPT/HCPCS: 36415; 80053; 81000; 82947; 85025; 86141; 87077; 87088; 87186

== ENCOUNTER 2021-11-27 13:07 | Emergency (ER) | payer MEDICARE, MEDICAID ==
[~2021-11-27] VITALS: Ht 185.4 cm; Wt 115.6 kg
[~2021-11-27 13:07] MED LIST changes: +CEPH500C PO
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
[2021-11-27] MEDS ORDERED: VANCOMYCIN INJECTION 1,000 MG in NS (IVPB) 250 ML IV ONE (14:30)
[2021-11-27 16:08] VITALS: BP 126/61
== END 2021-11-27 16:08 | disposition home or self-care (01) ==
LOC: EDUNIT# 13:07 → ER 13:08
DX: N39.0 Urinary tract infection, site not specified (principal); E66.9 Obesity, unspecified; Z16.20 Resistance to unspecified antibiotic; Z68.33 Body mass index [BMI] 33.0-33.9, adult; Z96.0 Presence of urogenital implants

== ENCOUNTER 2021-11-28 10:44 | Outpatient (RCR) | payer MEDICARE, MEDICAID ==
[~2021-11-28 10:44] MED LIST changes: -B2/V1TAB PO; +B2/V1TAB2 PO
--- NOTE | 2021-11-28 12:47 | Diagnostic Imaging Report ---
INDICATION: PICC line placement. TIME OF EXAM: 12:21 PM. COMPARISON: Correlation is made with the prior chest from 10/10/2021. FINDINGS: The left upper extremity PICC line does have an abnormal course. The distal aspect of the PICC line is directed inferiorly in the left paratracheal region/aortic knob region, perhaps within an accessory vein. There is a right-sided cardiac pacemaker. Both lung bases show some subsegmental atelectasis. No significant effusion or pneumothorax is seen. IMPRESSION: The left-sided PICC line does have an abnormal course directed in the left para-midline location. Reviewing the patient's prior CT chest, the patient does not have a left sided SVC. The PICC line is likely located within an accessory vein and would likely need to be removed. Dictated by: Dictated on workstation # [id number]
--- NOTE | 2021-11-28 15:17 | Diagnostic Imaging Report ---
INDICATION: PICC line. FINDINGS: The left PICC catheter has its tip at the lower SVC in good position. A pacemaker device is unchanged. There are patchy perihilar and basilar atelectatic features, improved from earlier today. IMPRESSION: The PICC line is in good position. The perihilar and basilar pulmonary opacities, likely partial atelectasis, have decreased. Dictated by: Dictated on workstation # [id number]
[2021-12-10] MEDS ORDERED: TMSL.4C PO (12:55)
[2021-12-10] MEDS ORDERED: INSU200I4 SQ (12:55)
[2021-12-10] MEDS ORDERED: SEMA1PEN3 SQ (12:55)
[2021-12-10] MEDS ORDERED: EMPA25TA PO (12:55)
[2021-12-10] MEDS ORDERED: LATA7.5D OP (12:55)
[2021-12-10] MEDS ORDERED: SERT-413 PO (12:55)
== END 2021-12-26 | disposition home or self-care (01) ==
LOC: SDC 10:44
PROVIDERS: ATTEND Emergency Medicine
DX: N39.0 Urinary tract infection, site not specified (principal)
CPT/HCPCS: 36569; 71045; 76937; C1751

== ENCOUNTER 2021-12-03 08:50 | Outpatient (RCR) | payer MEDICARE, MEDICAID ==
[2021-11-28 15:26] VITALS: BP 129/64
[2021-11-29 14:30] VITALS: BP 147/77
[2021-11-29] MEDS: VANCOMYCIN 500 MG/NS 100 ML IV SCH ×2 (15:21)
[2021-11-30 10:45] VITALS: BP 144/81
[2021-11-30] MEDS: VANCOMYCIN 500 MG/NS 100 ML IV SCH ×2 (11:10)
[2021-12-01 09:05] VITALS: BP 132/73
[2021-12-01] MEDS: VANCOMYCIN 500 MG/NS 100 ML IV SCH ×2 (09:25)
[2021-12-02 09:00] VITALS: BP 150/67
[2021-12-02] MEDS: VANCOMYCIN 500 MG/NS 100 ML IV SCH ×2 (09:02)
[~2021-12-03] VITALS: Ht 185 cm; Wt 115.6 kg
[~2021-12-03 08:50] MED LIST changes: +CATHETER FLUSH 10 ML SYR IVP PRN; +VANCOMYCIN 500 MG/NS 100 ML IV ONE
[2021-12-03 09:45] VITALS: BP 134/66
[2021-12-03] MEDS: VANCOMYCIN 500 MG/NS 100 ML IV SCH ×2 (10:09)
[2021-12-10] MEDS ORDERED: EMPA25TA PO (12:55)
[2021-12-10] MEDS ORDERED: SEMA1PEN3 SQ (12:55)
[2021-12-10] MEDS ORDERED: TMSL.4C PO (12:55)
[2021-12-10] MEDS ORDERED: SERT-413 PO (12:55)
[2021-12-10] MEDS ORDERED: LATA7.5D OP (12:55)
[2021-12-10] MEDS ORDERED: INSU200I4 SQ (12:55)
== END 2021-12-26 | disposition home or self-care (01) ==
LOC: SDC 08:50
PROVIDERS: ATTEND Physician Assistant
DX: N30.00 Acute cystitis without hematuria (principal)
CPT/HCPCS: 36415; 80202; 96365

== ENCOUNTER 2021-12-08 16:49 | Observation (INO) | payer MEDICARE, MEDICAID ==
[~2021-12-08] VITALS: Ht 185 cm; Wt 115.7 kg
[~2021-12-08 16:49] MED LIST changes: +B2/V1TAB PO; -B2/V1TAB2 PO; -CATHETER FLUSH 10 ML SYR IVP PRN; -VANCOMYCIN 500 MG/NS 100 ML IV ONE
[2021-12-08] MEDS ORDERED: NS IV 1000 ML 1,000 ML IV SCH (18:30)
[2021-12-08] MEDS ORDERED: LOPERAMIDE 2 MG (IMODIUM) TABLET PO ONE (18:30)
[2021-12-08 18:49] LABS: BASOPHILS # (AUTO) 0.1 10^3/uL (0.0-0.1); BASOPHILS % (AUTO) 1 % (0-10); EOSINOPHILS # (AUTO) 0.3 10^3/uL (0.0-0.3); EOSINOPHILS % (AUTO) 2 % (0-10); HEMATOCRIT 42 % (40-54); HEMOGLOBIN 13.4 g/dL (13.3-17.7); LYMPHOCYTES # (AUTO) 1.9 10^3/uL (1.0-4.0); LYMPHOCYTES % (AUTO) 13 % (12-44); MEAN CORPUSCULAR HEMOGLOBIN 29 pg (25-34); MEAN CORPUSCULAR HGB CONC 32 g/dL (32-36); MEAN CORPUSCULAR VOLUME 91 fL (80-99); MEAN PLATELET VOLUME 11.6 fL (9.0-12.2); MONOCYTES # (AUTO) 0.8 10^3/uL (0.0-1.0); MONOCYTES % (AUTO) 5 % (0-12); NEUTROPHILS # (AUTO) 12.2 10^3/uL (1.8-7.8); NEUTROPHILS % (AUTO) 79 % (42-75); PLATELET COUNT 165 10^3/uL (130-400); WHITE BLOOD COUNT 15.4 10^3/uL (4.3-11.0)
[2021-12-08 18:54] LABS: INR 1.4 (0.8-1.4); PROTHROMBIN TIME PATIENT 17.1 SEC (12.2-14.7)
--- NOTE | 2021-12-08 18:55 | ED GI ---
General Chief Complaint: Abdominal/GI Problems Stated Complaint: DIARRHEA/DIZZY/CAN'T EAT/FATIGUE Nursing Triage Note: PT TO ROOM 10 WITH C/O ABD PAIN, DIARRHEA SINCE FRIDAY AND DIZZYNESS STARTING TODAY. PT REPORTS FINISHING IV/PO ABX FRIDAY FOR UTI. Source of Information: Patient Exam Limitations: No Limitations History of Present Illness Date Seen by Provider: Dec 08, 2021 Time Seen by Provider: 18:06 Initial Comments Patient to the ER by private conveyance with his and chief complaint is had 1 day of loose, watery nonbloody diarrhea body aches malaise weakness tiredness. No fevers or chills. He did finish a round of vancomycin and ciprofloxacin for a catheter related UTI on , 2 days ago. Pseudomonas grew out. He had the catheter placed recently in the past few weeks due to urinary retention despite tamsulosin. The patient follows with Dr. Duvall. He follows with Adam Nicole. Allergies and Home Medications Allergies Coded Allergies: Penicillins (Verified Allergy, Unknown, Anaphylaxis, 02/27/20) promethazine (Verified Allergy, Unknown, Anaphylaxis, 02/27/20) ramelteon (Verified Allergy, Unknown, Shortness of Breath, 02/27/20) "Severe bronchospasm" sotalol (Verified Allergy, Unknown, Shortness of Breath, 02/27/20) "Severe bronchospasm" Patient Home Medication List Home Medication List Reviewed: Yes Acetaminophen (Tylenol) 325 Mg Tablet, 650 MG PO Q6H PRN for PAIN-MODERATE (5-7) Prescribed by: MERCEDES VAZQUEZ on 09/12/20 0945 Albuterol Sulfate (Ventolin Hfa) 18 Gm Hfa.aer.ad, 2 PUFF INH Q4H PRN for SHORTNESS OF BREATH, (Reported) Entered as Reported by: DONATO MORRISON on 04/20/20 1038 Antiox#10/Om3/Dha/Epa/Lut/Zeax (I-Caps with Lutein-[place] 3 Sfg) 1 Each Capsule, 1 EACH PO DAILY, (Reported) Entered as Reported by: DONATO MORRISON on 04/20/20 1038 Apixaban (Eliquis) 5 Mg Tablet, 5 MG PO 0700,1700, (Reported) Entered as Reported by: CLARISA SOARES on 04/20/20 0616 Aspirin (Aspirin EC) 81 Mg Tablet.dr, 162 MG PO HS, (Reported) Entered as Reported by: DONATO MORRISON on 04/20/20 1049 Atorvastatin Calcium (Atorvastatin Calcium) 20 Mg Tablet, 20 MG PO HS, (Reported) Entered as Reported by: CLARISA SOARES on 04/20/20615 Calcium Carbonate/Vitamin D3 (Calcium 600 + Vit D3 400 Tab) 1 Each Tablet, 1 EACH PO DAILY, (Reported) Entered as Reported by: CLARISA SOARES on 04/20/20615 Cephalexin (Cephalexin) 500 Mg Capsule, 500 MG PO BID Prescribed by: JACE ROBBINS on 11/19/21 170 Diphenoxylate HCl/Atropine (Lomotil 2.5-0.025 mg Tablet) 1 Each Tablet, 1 EACH PO Q6H PRN for DIARRHEA Prescribed by: TORY DASILVA on 06/23/20 0908 Empagliflozin (Jardiance) 10 Mg Tablet, 10 MG PO DAILY, (Reported) Entered as Reported by: EMELYN CABRERA on 09/12/20 0742 Fluticasone/Umeclidin/Vilanter (Trelegy Ellipta 100-62.5-25) 1 Each Blst.w.dev, 1 PUFF INH HS, (Reported) Entered as Reported by: CLARISA SOAERS on 04/20/20615 Furosemide (Furosemide) 20 Mg Tablet, 20 MG PO DAILY, (Reported) Entered as Reported by: EMELYN CABRERA on 09/12/20 0742 Insulin Aspart (Novolog Flexpen) 300 Units/3 Ml Solution, 22 UNITS SQ DAILY BEFORE BREAKFAST, (Reported) Entered as Reported by: CLARISA SOARES on 04/20/20615 Insulin Aspart (Novolog Flexpen) 300 Units/3 Ml Solution, 18 UNITS SQ 1200 BEFORE LUNCH, (Reported) Entered as Reported by: CLARISA SOARES on 04/20/20615 Insulin Aspart (Novolog Flexpen) 300 Units/3 Ml Solution, 24 UNITS SQ 1700 BEFORE DINNER, (Reported) Entered as Reported by: CLARISA SOARES on 04/20/20615 Insulin Detemir (Levemir Flextouch) 100 Unit/1 Ml Insuln.pen, 70 UNITS SQ DAILY, (Reported) Entered as Reported by: CLARISA SOARES on 04/20/20615 Insulin Detemir (Levemir Flextouch) 100 Unit/1 Ml Insuln.pen, 80 UNIT SQ HS, (Reported) Entered as Reported by: CLARISA SOARES on 04/20/20615 Lorazepam (Ativan) 0.5 Mg Tablet, 0.5-1 MG PO DAILY PRN for MUSCLE SPASMS, (Reported) Entered as Reported by: CLARISA SOARES on 04/20/20615 Losartan Potassium (Losartan Potassium) 25 Mg Tablet, 25 MG PO DAILY, (Reported) Entered as Reported by: CLARISA SOARES on 04/20/20615 Magnesium Carbonate/Al Hydrox (Gaviscon Es Tablet Chew) 1 Each Tab.chew, 1 EACH PO UD PRN for HEARTBURN, (Reported) Entered as Reported by: CLARISA SOARES on 04/20/20615 Metoprolol Tartrate (Metoprolol Tartrate) 50 Mg Tablet, 50 MG PO 0700,1700, (Reported) Entered as Reported by: CLARISA SOARES on 04/20/20615 Multivit-Min/FA/Lycopene/Lut (Centrum Silver Tablet) 1 Each Tablet, 1 EACH PO DAILY, (Reported) Entered as Reported by: DONATO MORRISON on 04/20/20 1038 Nitroglycerin (Nitroglycerin) 0.4 Mg Tab.subl, 0.4 MG SL UD PRN for CHEST PAIN (ANGINA), (Reported) Entered as Reported by: DONATO MORRISON on 04/20/20 1038 Omeprazole (Omeprazole) 40 Mg Capsule.dr, 40 MG PO 0700,1700, (Reported) Entered as Reported by: CLARISA SOARES on 04/20/20615 Ondansetron (Ondansetron Odt) 4 Mg Tab.rapdis, 4 MG PO Q6H PRN for NAUSEA/VOMITING Prescribed by: TORY DASILVA on 06/23/20 0908 Potassium Chloride (K-Tab ER) 8 Meq Tablet.er, 16 MEQ PO DAILY, (Reported) Entered as Reported by: CLARISA SOARES on 04/20/20615 Sertraline HCl (Sertraline HCl) 50 Mg Tablet, 50 MG PO 1700, (Reported) Entered as Reported by: CLARISA SOARES on 04/20/20615 Sulfamethoxazole/Trimethoprim (Bactrim Ds Tablet) 1 Each Tablet, 1 EACH PO BID Prescribed by: MERCEDES VAZQUEZ on 09/12/20 0943 Zolpidem Tartrate (Ambien) 10 Mg Tablet, 10 MG PO HS, (Reported) Entered as Reported by: CLARISA SOARES on 04/20/20 0616 Review of Systems Review of Systems Constitutional: No chills, No fever EENTM: No Blurred Vision, No Double Vision Respiratory: Denies Cough, Denies Shortness of Air Cardiovascular: Denies Chest Pain, Denies Edema Gastrointestinal: Denies Abdominal Pain, Denies Constipated, Denies Diarrhea Genitourinary: Denies Burning, Denies Discharge Musculoskeletal: No back pain, No joint pain Skin: No change in color, No dryness Psychiatric/Neurological: Denies Anxiety, Denies Depressed All Other Systems Reviewed Negative Unless Noted: Yes Past Kpunvfu-Nqykup-Ndlcmv Hx Patient Social History Tobacco Use?: No Smoking Status: Never a Smoker Smokeless Tobacco Frequency: Never a User Use of E-Cig and/or Vaping dev: No Use of E-Cig and/or Vaping Chip: Never a User Substance use?: No Alcohol Use?: No Pt feels they are or have been: No Immunizations Up To Date Tetanus Booster (TDap): Unknown First/Initial COVID19 Vaccinat: JULY 2020 Second COVID19 Vaccination Naeem: JULY 2020 Third COVID19 Vaccination Date: April 2021 COVID19 Vaccine 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: [employer] Seasonal Allergies Seasonal Allergies: No Past Medical History Surgery/Hospitalization HX: lumbag laminectomy, bilateral cataracts, cardiac ablation, coronary stent, gallbladder, ortho, ppm, tavr pulmonary fibrosis, cilicosis, asthma, moreno, copd, svt, afib/flutter, stemi Surgeries: Yes (Bilat "lens" implants, Laminectomy, Ablation, Cardiac stent, ) Cardiac, Coronary Stent, Eye Surgery, Gallbladder, Orthopedic, Pacemaker, Valve Replacement Respiratory: Yes (Exertional SOA; PULMONARY FIBROSIS; SILICOSIS) Asthma, Sleep Apnea, COPD Currently Using CPAP: Yes Currently Using BIPAP: No Cardiac: Yes (SVT; AFIB & FLUTTER;STEMI 04/13/15;ABLATION; PACEMAKER; TAVR;STENTS) Atrial Fibrillation, Coronary Artery Disease, Heart Attack, High Cholesterol, Hypertension, Irregular Heartbeat, Valvular Heart Disease Neurological: Yes (BALANCE PROBLEMS; FOOT DROP) Neuropathy Genitourinary: No Gastrointestinal: Yes (S/P CHOLECYSTECTOMY) Musculoskeletal: Yes (RIGHT FOOT DROP; MULTIPLE ORTHO SURGERIES; USES WALKER) Degenerate Disk Disease, Arthritis, Foot Drop, Chronic Back Pain Endocrine: Yes (OBESITY) Diabetes, Insulin dep HEENT: Yes (BILATERAL CATARACT SURGERY) Cataract, Macular Degeneration, Glaucoma Hearing Impairment: Hard of Hearing Cancer: No Psychosocial: No Integumentary: No Family Medical History PAST SURGICAL HISTORY: -OPEN CHOLECYSTECTOMY -CARDIAC CATHS--STENT X2--07/2007 AND HAD FL WITH STENT 04/03/15 -DUAL CHAMBER PACEMAKER--GARCIA--RIGHT CHEST -CARDIAC ABLATION 11/05/16 -TAVR 12/23/17 -LUNG BIOPSY 02/17/19 -BILATERAL CATARACT SURGERY 03/2019--HAD AN ACCIDENT AND HAD: -BACK SURGERY -RIGHT HEEL/ANKLE/FOOT RECONSTRUCTION 07/2012--HAD AN ACCIDENT AND HAD: -RIGHT HAND RECONSTRUCTION -RIGHT ELBOW RECONSTRUCTION Physical Exam Vital Signs Vital Signs - First Documented 12/08/21 17:06 Temp 36.8 Pulse 70 Resp 16 B/P (MAP) 144/71 (95) O2 Delivery Room Air Capillary Refill : Less Than 3 Seconds Height/Weight/BMI Height: '" Weight: lbs. oz. kg; 33.00 BMI Method: General Appearance: WD/WN, no apparent distress HEENT: PERRL/EOMI, normal ENT inspection, TMs normal, pharynx normal Neck: non-tender, full range of motion, supple, normal inspection Respiratory: lungs clear, normal breath sounds, no respiratory distress, no accessory muscle use Cardiovascular: normal peripheral pulses, regular rate, rhythm, no edema Peripheral Pulses: 2+ Radial Pulses (R), 2+ Radial Pulses (L) Gastrointestinal: normal bowel sounds (Active bowel sounds), non tender, soft, other (Umbilical hernias, scars well-healed.) Extremities: normal range of motion, non-tender, normal capillary refill Neurologic/Psychiatric: alert, normal mood/affect, oriented x 3 Progress/Results/Core Measures Results/Orders Lab Results Laboratory Tests Test 12/08/21 17:32 12/08/21 17:39 12/08/21 19:14 Range/Units White Blood Count 15.4 H 4.3-11.0 10^3/uL Red Blood Count 4.64 4.30-5.52 10^6/uL Hemoglobin 13.4 13.3-17.7 g/dL Hematocrit 42 40-54 % Mean Corpuscular Volume 91 80-99 fL Mean Corpuscular Hemoglobin 29 25-34 pg Mean Corpuscular Hemoglobin Concent 32 32-36 g/dL Red Cell Distribution Width 15.3 H 10.0-14.5 % Platelet Count 165 130-400 10^3/uL Mean Platelet Volume 11.6 9.0-12.2 fL Immature Granulocyte % (Auto) 1 % Neutrophils (%) (Auto) 79 H 42-75 % Lymphocytes (%) (Auto) 13 12-44 % Monocytes (%) (Auto) 5 0-12 % Eosinophils (%) (Auto) 2 0-10 % Basophils (%) (Auto) 1 0-10 % Neutrophils # (Auto) 12.2 H 1.8-7.8 10^3/uL Lymphocytes # (Auto) 1.9 1.0-4.0 10^3/uL Monocytes # (Auto) 0.8 0.0-1.0 10^3/uL Eosinophils # (Auto) 0.3 0.0-0.3 10^3/uL Basophils # (Auto) 0.1 0.0-0.1 10^3/uL Immature Granulocyte # (Auto) 0.1 0.0-0.1 10^3/uL Neutrophils % (Manual) 75 % Lymphocytes % (Manual) 17 % Monocytes % (Manual) 5 % Eosinophils % (Manual) 1 % Myelocytes % 1 % Band Neutrophils 1 % Elliptocytes SLIGHT Prothrombin Time 17.1 H 12.2-14.7 SEC INR Comment 1.4 0.8-1.4 Sodium Level 141 135-145 MMOL/L Potassium Level 4.4 3.6-5.0 MMOL/L Chloride Level 110 H 98-107 MMOL/L Carbon Dioxide Level 22 21-32 MMOL/L Anion Gap 9 5-14 MMOL/L Blood Urea Nitrogen 21 H 7-18 MG/DL Creatinine 1.15 0.60-1.30 MG/DL Estimat Glomerular Filtration Rate 63 BUN/Creatinine Ratio 18 Glucose Level 103 70-105 MG/DL Calcium Level 9.5 8.5-10.1 MG/DL Corrected Calcium 9.7 8.5-10.1 MG/DL Magnesium Level 2.5 H 1.6-2.4 MG/DL Total Bilirubin 0.5 0.1-1.0 MG/DL Aspartate Amino Transf (AST/SGOT) 21 5-34 U/L Alanine Aminotransferase (ALT/SGPT) 23 0-55 U/L Alkaline Phosphatase 84 40-136 U/L C-Reactive Protein High Sensitivity 0.11 0.00-0.50 MG/DL Total Protein 6.5 6.4-8.2 GM/DL Albumin 3.7 3.2-4.5 GM/DL Procalcitonin 0.06 <0.10 NG/ML Influenza Type A (RT-PCR) Not Detected Not Detecte Influenza Type B (RT-PCR) Not Detected Not Detecte SARS-CoV-2 RNA (RT-PCR) Detected H Not Detecte Urine Color YELLOW Urine Clarity CLEAR Urine pH 5.0 5-9 Urine Specific [place] 1.020 1.016-1.022 Urine Protein TRACE H NEGATIVE Urine Glucose (UA) 2+ H NEGATIVE Urine Ketones TRACE H NEGATIVE Urine Nitrite NEGATIVE NEGATIVE Urine Bilirubin 1+ H NEGATIVE Urine Urobilinogen 0.2 < = 1.0 MG/DL Urine Leukocyte Esterase NEGATIVE NEGATIVE Urine RBC (Auto) 3+ H NEGATIVE Urine RBC 25-50 H /HPF Urine WBC 2-5 /HPF Urine Crystals NONE /LPF Urine Bacteria FEW H /HPF Urine Casts NONE /LPF Urine Mucus MODERATE H /LPF Urine Culture Indicated YES My Orders Orders - CHANA MCNEILL Ed Iv/Invasive Line Start (12/08/21 18:25) Ns Iv 1000 Ml (Sodium Chloride 0.9%) (12/08/21 18:30) Loperamide Tablet (Imodium Tablet) (12/08/21 18:30) Cbc With Automated Diff (12/08/21 18:25) Comprehensive Metabolic Panel (12/08/21 18:25) Hs C Reactive Protein (12/08/21 18:25) Procalcitonin (Pct) (12/08/21 18:25) Protime With Inr (12/08/21 18:25) Ua Culture If Indicated (12/08/21 18:25) Chest 1 View, Ap/Pa Only (12/08/21 18:25) Magnesium (12/08/21 18:25) Manual Differential (12/08/21 17:32) Fentanyl Inj (Sublimaze Injection) (12/08/21 19:15) Bebtelovimab (Bebtelovimab) (12/08/21 19:30) Medications Given in ED Current Medications Medications Dose Ordered Sig/Vickie Route Start Time Stop Time Status Last Admin Dose Admin Bebtelovimab 175 mg ONCE ONCE IV 12/08/21 19:30 12/08/21 19:32 DC 12/08/21 22:33 175 MG Fentanyl Citrate 25 mcg ONCE ONCE IVP 12/08/21 19:15 12/08/21 19:16 DC 12/08/21 19:08 25 MCG Loperamide HCl 4 mg ONCE ONCE PO 12/08/21 18:30 12/08/21 18:45 DC 12/08/21 18:56 4 MG Vital Signs/I&O 12/08/21 17:06 Temp 36.8 Pulse 70 Resp 16 B/P (MAP) 144/71 (95) O2 Delivery Room Air Blood Pressure Mean: 95 Progress Progress Note : Time: 18:57 Progress Note Aseptic vital signs but he becomes orthostatic when he stands up so organ to give him a liter of fluids check some labs and electrolytes and give him some Imodium for his abdominal cramping. We will entertain an observation which he is okay with. He is not being admitted for his COVID-19 respiratory symptoms so it may be reasonable to consider Bebtolivimab. Diagnostic Imaging Diagonstic Imaging: Xray Plain Films/CT/US/NM/MRI: chest Reviewed: Reviewed by Me Departure Communication (Admissions) Time/Spoke to Admitting Phy: 19:[address] Garcia who agrees to observe the patient on IV fluids. Impression Primary Impression: COVID-19 Additional Impressions: Gastroenteritis and colitis, viral Dehydration Disposition: ADMITTED INPATIENT Condition: Stable Admissions Decision to Admit Reason: Admit from ER (General) Decision to Admit/Date: Dec 08, 2021 Time/Decision to Admit Time: 19:00 Departure-Patient Inst. Referrals: [facility] (PCP) Primary Care Physician ADAM NICOLE (Family) Primary Care Physician CHAAN MCNEILL Dec 08, 2021 18:55
[2021-12-08 19:08] LABS: ALBUMIN 3.7 GM/DL (3.2-4.5); BILIRUBIN,TOTAL 0.5 MG/DL (0.1-1.0); CALCIUM 9.5 MG/DL (8.5-10.1); CREATININE SERUM 1.15 MG/DL (0.60-1.30); MAGNESIUM 2.5 MG/DL (1.6-2.4); POTASSIUM 4.4 MMOL/L (3.6-5.0); TOTAL PROTEIN 6.5 GM/DL (6.4-8.2)
[2021-12-08] MEDS ORDERED: fentaNYL INJ 100 MCG/2 ML AMP IVP ONE (19:15)
[2021-12-08 19:17] LABS: BAND NEUTROPHILS 1 %; ELLIPT/OVALOCYTES SLIGHT; EOSINOPHILS % (MANUAL) 1 %; LYMPHOCYTES % (MANUAL) 17 %; MONOCYTES % (MANUAL) 5 %; MYELOCYTES % 1 %; NEUTROPHILS % (MANUAL) 75 %
[2021-12-08 19:27] LABS: CLARITY,URINE CLEAR; COLOR,URINE YELLOW; GLUCOSE, URINE (UA) 2+ (NEGATIVE); KETONES,URINE TRACE (NEGATIVE); LEUKOCYTE ESTERASE ,URINE NEGATIVE (NEGATIVE); NITRITE,URINE NEGATIVE (NEGATIVE); PROTEIN,URINE TRACE (NEGATIVE)
[2021-12-08] MEDS ORDERED: BEBTELOVIMAB 175 MG/2 ML VIAL IV ONE (19:30)
[2021-12-08 19:36] LABS: BILIRUBIN,URINE 1+ (NEGATIVE)
[2021-12-08 19:38] LABS: BACTERIA,URINE FEW /HPF; RBC,URINE 25-50 /HPF
--- NOTE | 2021-12-08 20:04 | Diagnostic Imaging Report ---
INDICATION: Covid infection. COMPARISON: 11/28/2021. EXAMINATION: AP view of the chest reveals mild hazy density in the lungs which could be due to mild edema or pneumonitis. There is basilar atelectasis with continued elevation of right hemidiaphragm. Right anterior chest wall pacemaker is in stable position. IMPRESSION: Mild hazy density in the lungs may represent mild edema or pneumonitis without lobar consolidation identified. Dictated by: Dictated on workstation # [id number]
[2021-12-08 21:03] VITALS: BP 112/62
[2021-12-08] MEDS ORDERED: ZOLPIDEM 5 MG (AMBIEN) TAB PO PRN (21:15)
[2021-12-08] MEDS ORDERED: LOPERAMIDE 2 MG (IMODIUM) TABLET PO PRN (21:15)
[2021-12-08] MEDS ORDERED: HYDROcodone/APAP 5 MG/325 MG (LORTAB) TAB PO PRN (21:15)
[2021-12-08] MEDS ORDERED: ONDANSETRON 4 MG/2 ML (SDV) Z0FRAN IV PRN (21:15)
[2021-12-08] MEDS ORDERED: PROCHLORPERAZINE 10 MG/2ML INJ (COMPAZINE) IV PRN (21:15)
[2021-12-08] MEDS ORDERED: fentaNYL INJ 100 MCG/2 ML AMP IV PRN (21:30)
[2021-12-08] MEDS: NS W/KCL 20 MEQ/L 1,000 ML IV SCH (22:32)
[2021-12-09] VITALS (8 sets, daily range): BP systolic 102–154; BP diastolic 58–107
[2021-12-09 05:55] LABS: BASOPHILS # (AUTO) 0.1 10^3/uL (0.0-0.1); BASOPHILS % (AUTO) 1 % (0-10); EOSINOPHILS # (AUTO) 0.3 10^3/uL (0.0-0.3); EOSINOPHILS % (AUTO) 2 % (0-10); HEMATOCRIT 36 % (40-54); HEMOGLOBIN 11.9 g/dL (13.3-17.7); LYMPHOCYTES # (AUTO) 2.2 10^3/uL (1.0-4.0); LYMPHOCYTES % (AUTO) 15 % (12-44); MEAN CORPUSCULAR HEMOGLOBIN 29 pg (25-34); MEAN CORPUSCULAR HGB CONC 33 g/dL (32-36); MEAN CORPUSCULAR VOLUME 89 fL (80-99); MEAN PLATELET VOLUME 11.3 fL (9.0-12.2); MONOCYTES # (AUTO) 0.8 10^3/uL (0.0-1.0); MONOCYTES % (AUTO) 5 % (0-12); NEUTROPHILS # (AUTO) 11.2 10^3/uL (1.8-7.8); NEUTROPHILS % (AUTO) 77 % (42-75); PLATELET COUNT 123 10^3/uL (130-400); WHITE BLOOD COUNT 14.6 10^3/uL (4.3-11.0)
[2021-12-09] MEDS: NS W/KCL 20 MEQ/L 1,000 ML IV SCH ×3 (06:06→21:11)
[2021-12-09] MEDS: inSUlin ASPART (NovoLOG) 1 UNIT/0.01 ML (CHARGE PER UNIT) SC SCH ×7 (06:07→21:01)
[2021-12-09 06:13] LABS: CALCIUM 8.6 MG/DL (8.5-10.1); CREATININE SERUM 0.85 MG/DL (0.60-1.30); POTASSIUM 3.9 MMOL/L (3.6-5.0)
[2021-12-09] MEDS: APIXABAN 5 MG (ELIQUIS) TABLET PO SCH ×2 (08:31→21:11)
[2021-12-09] MEDS: PANTOPRAZOLE 20 MG TABLET (PROTONIX) PO SCH ×2 (08:31→21:11)
--- NOTE | 2021-12-09 09:47 | History & Physical-Hospitalist ---
History of Present Illness HPI/Chief Complaint Patient to the ER by private conveyance with his and chief complaint is had 1 day of loose, watery nonbloody diarrhea body aches malaise weakness tiredness. No fevers or chills. He did finish a round of vancomycin and ciprofloxacin for a catheter related UTI on , 2 days ago. Pseudomonas grew out. He had the catheter placed recently in the past few weeks due to urinary retention despite tamsulosin. The patient follows with Dr. Duvall. He follows with John Nicole.This morning the patient reports feeling better. He still having some mild lower crampy pain with loose stools but denies melena and was able to eat breakfast this morning without nausea. He denies dysuria. He reports some mild cough in the morning this has not been the case so far today producing a small amount of sputum nothing throughout the rest of the day. Date Seen 12/09/21 Time Seen by a Provider: 07:30 Attending Physician [place] PCP Admitting Physician: Nigel Garcia MD Attending Physician: Nigel Garcia MD Referring Physician Date of Admission Dec 08, 2021 at 19:31 Home Medications & Allergies Home Medications Reviewed patient Home Medication Reconciliation performed by pharmacy medication reconciliations appraisal technician and/or nursing. Patients Allergies have been reviewed. Allergies Allergies Coded Allergies Penicillins (Verified Allergy, Unknown, Anaphylaxis, 02/27/20) promethazine (Verified Allergy, Unknown, Anaphylaxis, 02/27/20) ramelteon (Verified Allergy, Unknown, Shortness of Breath, 02/27/20) "Severe bronchospasm" sotalol (Verified Allergy, Unknown, Shortness of Breath, 02/27/20) "Severe bronchospasm" Past Npobpbo-Anzvfo-Mbhujv Hx Patient Social History Tobacco Use?: No Smoking Status: Never a Smoker Smokeless type used: Chew Smokeless Tobacco Frequency: Light User Use of E-Cig and/or Vaping dev: No Use of E-Cig and/or Vaping Chip: Never a User Substance use?: No Alcohol Use?: No Pt feels they are or have been: No Immunizations Up To Date Date of Influenza Vaccine: Jan 16, 2020 First/Initial COVID19 Vaccinat: JULY 2020 Second COVID19 Vaccination Naeem: JULY 2020 Tetanus Booster (TDap): More Than 5 Years Date of Pneumonia Vaccine: Feb 11, 2017 Seasonal Allergies Seasonal Allergies: No Current Status Advance Directives: Yes Advance Directive Location: Home Communicates: Verbally Primary Language: Portuguese Preferred Spoken Language: Portuguese Is interpretation needed?: No Sensory deficits: Vision impairment, Hearing impairment Implanted or Applied Medical D: CPAP, Pacemaker Past Medical History Surgeries: Cardiac, Coronary Stent, Eye Surgery, Gallbladder, Orthopedic, Pacemaker, Valve Replacement Asthma, Sleep Apnea, COPD Currently Using CPAP: Yes Currently Using BIPAP: No Atrial Fibrillation, Coronary Artery Disease, Heart Attack, High Cholesterol, Hypertension, Irregular Heartbeat, Valvular Heart Disease Neuropathy Degenerate Disk Disease, Arthritis, Foot Drop, Chronic Back Pain Diabetes, Insulin dep Cataract, Macular Degeneration, Glaucoma Hearing Impairment: Hard of Hearing Family Medical History PAST SURGICAL HISTORY: -OPEN CHOLECYSTECTOMY -CARDIAC CATHS--STENT X2--07/2007 AND HAD CO WITH STENT 04/03/15 -DUAL CHAMBER PACEMAKER--GARCIA--RIGHT CHEST -CARDIAC ABLATION 11/05/16 -TAVR 12/23/17 -LUNG BIOPSY 02/17/19 -BILATERAL CATARACT SURGERY 03/2019--HAD AN ACCIDENT AND HAD: -BACK SURGERY -RIGHT HEEL/ANKLE/FOOT RECONSTRUCTION 07/2012--HAD AN ACCIDENT AND HAD: -RIGHT HAND RECONSTRUCTION -RIGHT ELBOW RECONSTRUCTION Review of Systems Constitutional: see HPI Physical Exam Physical Exam Vital Signs Vital Signs - First Documented 12/08/21 12/08/21 17:06 21:03 Temp 36.8 Pulse 70 Resp 16 B/P (MAP) 144/71 (95) Pulse Ox 96 O2 Delivery Room Air Capillary Refill : Less Than 3 Seconds Height, Weight, BMI Height: '" Weight: lbs. oz. kg; 33.80 BMI Method: General Appearance: No Apparent Distress, Obese Respiratory: Chest Non Tender, Lungs Clear, Normal Breath Sounds, No Accessory Muscle Use, No Respiratory Distress Cardiovascular: Regular Rate, Rhythm, No Edema, No Gallop, No JVD, No Murmur, Normal Peripheral Pulses Gastrointestinal: Normal Bowel Sounds, No Organomegaly, Soft, Tenderness (Mild bilateral lower quadrants no rebound or guarding) Extremity: Normal Inspection, Non Tender Results Results/Procedures Labs Laboratory Tests 12/08/21 17:32 12/09/21 05:35 Patient resulted labs reviewed. Assessment/Plan Admission Diagnosis 1. COVID infection without pneumonia antiviral therapy initiated. 2. Dehydration secondary to #1 as well as likely complications from previous Pseudomonas reported urinary tract infection which the patient just recently discontinued antibiotics continue IV fluids consideration for discharge in the morning if improvement continues. 3. Presumed prostatism with recent urinary obstruction requiring catheter being managed by Dr. Alba. 4. Type 2 diabetes mellitus's insulin requiring considering dehydration we will hold furosemide and Jardiance for now. 5. History of atrial fibrillation status post ablation continue Eliquis. 6. History of coronary artery disease and aortic stenosis status post past TAVR. Admission Status: Observation NIGEL GARCIA MD Dec 09, 2021 09:47
[2021-12-09] MEDS ORDERED: SERTRALINE 50 MG (ZOLOFT) TABLET PO SCH (21:00)
[2021-12-10 04:00] VITALS: BP 104/58
[2021-12-10] MEDS: inSUlin ASPART (NovoLOG) 1 UNIT/0.01 ML (CHARGE PER UNIT) SC SCH ×2 (06:54→06:55)
[2021-12-10] MEDS: NS W/KCL 20 MEQ/L 1,000 ML IV SCH (06:54)
[2021-12-10 08:00] VITALS: BP 162/82
[2021-12-10 08:59] LABS: HEMOGLOBIN 11.9 g/dL (13.3-17.7); MEAN PLATELET VOLUME 11.1 fL (9.0-12.2); WHITE BLOOD COUNT 10.5 10^3/uL (4.3-11.0)
[2021-12-10 09:25] LABS: POTASSIUM 4.3 MMOL/L (3.6-5.0)
[2021-12-10 09:26] LABS: CALCIUM 8.8 MG/DL (8.5-10.1)
[2021-12-10 09:30] LABS: CREATININE SERUM 0.88 MG/DL (0.60-1.30)
[2021-12-10] MEDS: APIXABAN 5 MG (ELIQUIS) TABLET PO SCH (09:42)
[2021-12-10] MEDS: PANTOPRAZOLE 20 MG TABLET (PROTONIX) PO SCH (09:42)
[2021-12-10 12:38] VITALS: BP 155/71
[2021-12-10] MEDS ORDERED: SERT-413 PO (12:55)
[2021-12-10] MEDS ORDERED: INSU200I4 SQ (12:55)
[2021-12-10] MEDS ORDERED: SEMA1PEN3 SQ (12:55)
[2021-12-10] MEDS ORDERED: TMSL.4C PO (12:55)
[2021-12-10] MEDS ORDERED: LATA7.5D OP (12:55)
[2021-12-10] MEDS ORDERED: EMPA25TA PO (12:55)
--- NOTE | 2021-12-10 13:32 | Discharge Summary ---
Discharge Summary Hospital Course Hospital Course Date of Admission: Dec 08, 2021 at 19:31 Admission Diagnosis : Family Physician/Provider: John Nicole Date of Discharge: 12/10/21 Discharge Diagnosis: [ ] Hospital Course: [ ] Labs and Pending Lab Test: Laboratory Tests 12/09/21 16:00: Glucometer 78 12/09/21 20:52: Glucometer 70 12/10/21 05:49: Glucometer 50*L 12/10/21 06:39: Glucometer 74 12/10/21 08:45: White Blood Count 10.5, Red Blood Count 4.13L, Hemoglobin 11.9L, Hematocrit 37L, Mean Corpuscular Volume 89, Mean Corpuscular Hemoglobin 29, Mean Corpuscular Hemoglobin Concent 32, Red Cell Distribution Width 14.9H, Platelet Count 119L, Mean Platelet Volume 11.1, Percent Immature Platelet Fraction 4.7, Sodium Level 140, Potassium Level 4.3, Chloride Level 112H, Carbon Dioxide Level 20L, Anion Gap 8, Blood Urea Nitrogen 13, Creatinine 0.88, Estimat Glomerular Filtration Rate 85, BUN/Creatinine Ratio 15, Glucose Level 81, Calcium Level 8.8 12/10/21 11:49: Glucometer 134H Microbiology 12/08/21 Urine Culture - Final, Complete NO GROWTH Home Meds Active Tylenol (Acetaminophen) 325 Mg Tablet 650 Mg PO Q6H PRN Reported Sertraline HCl 50 Mg Tablet 1.5 Tab PO DAILY Latanoprost 0.005% Eye Drop (Latanoprost/Pf) 0.005 % Drops 1 Drop OP DAILY Flomax (Tamsulosin HCl) 0.4 Mg Cap 1 Cap PO DAILY Ozempic (Semaglutide) 1 Mg/0.75 Ml (4 Mg/3 Ml) Pen.injctr 1 Mg SQ WEEK Tresiba Flextouch U-200 (Insulin Degludec) 200 Unit/Ml (3 Ml) Insuln.pen 152 Units SQ DAILY Jardiance (Empagliflozin) 25 Mg Tablet 25 Mg PO DAILY Furosemide 20 Mg Tablet 20 Mg PO DAILY Aspirin EC (Aspirin) 81 Mg Tablet.dr 162 Mg PO HS TAKES 2 (81MG) TABS Ventolin Hfa (Albuterol Sulfate) 18 Gm Hfa.aer.ad 2 Puff INH Q4H PRN Nitroglycerin 0.4 Mg Tab.subl 0.4 Mg SL UD PRN Centrum Silver Tablet (Multivit-Min/FA/Lycopene/Lut) 1 Each Tablet 1 Each PO DAILY Gaviscon Es Tablet Chew (Magnesium Carbonate/Al Hydrox) 1 Each Tab.chew 1 Each PO UD PRN Calcium 600 + Vit D3 400 Tab (Calcium Carbonate/Vitamin D3) 1 Each Tablet 1 Each PO DAILY Novolog Flexpen (Insulin Aspart) 300 Units/3 Ml Solution 24 Units SQ 1700 BEFORE DINNER SLIDING SCALE TO USE IN ADDITION TO 24 UNITS BEFORE DINNER: 150-199=2 UNITS 200-249=4 UNITS 250-299=7 UNITS 300-349=10 UNITS 350 AND ABOVE =14 UNITS Novolog Flexpen (Insulin Aspart) 300 Units/3 Ml Solution 18 Units SQ 1200 BEFORE LUNCH SLIDING SCALE TO USE IN ADDITION TO 18 UNITS BEFORE LUMNCH: 150-199=2 UNITS 200-249=4 UNITS 250-299=7 UNITS 300-349=10 UNITS 350 AND ABOVE =14 UNITS Novolog Flexpen (Insulin Aspart) 300 Units/3 Ml Solution 22 Units SQ DAILY BEFORE BREAKFAST SLIDING SCALE TO USE IN ADDITION TO 22 UNITS BEFORE BREAKFAST: 150-199=2 UNITS 200-249=4 UNITS 250-299=7 UNITS 300-349=10 UNITS 350 AND ABOVE =14 UNITS Metoprolol Tartrate 50 Mg Tablet 50 Mg PO 0700,1700 Atorvastatin Calcium 20 Mg Tablet 20 Mg PO HS K-Tab ER (Potassium Chloride) 8 Meq Tablet.er 16 Meq PO DAILY TAKES 2 (8MEQ) TABS Losartan Potassium 25 Mg Tablet 25 Mg PO DAILY Eliquis (Apixaban) 5 Mg Tablet 5 Mg PO 0700,1700 Trelegy Ellipta 100-62.5-25 (Fluticasone/Umeclidin/Vilanter) 1 Each Blst.w.dev 1 Puff INH HS Omeprazole 40 Mg Capsule.dr 40 Mg PO 0700,1700 Discharge Physical Examination Allergies: Coded Allergies: Penicillins (Verified Allergy, Unknown, Anaphylaxis, 02/27/20) promethazine (Verified Allergy, Unknown, Anaphylaxis, 02/27/20) ramelteon (Verified Allergy, Unknown, Shortness of Breath, 02/27/20) "Severe bronchospasm" sotalol (Verified Allergy, Unknown, Shortness of Breath, 02/27/20) "Severe bronchospasm" ABHINAV CAZARES MD Dec 10, 2021 13:32
== END 2021-12-10 12:37 | disposition home or self-care (01) ==
LOC: EDUNIT# 16:49 → ER 16:52 → UNDOADMOB 19:31 → 4TH 19:31 → UNDODISOB 12-10 13:25
PROVIDERS: ADMIT Internal Medicine; ATTEND Family Medicine
DX: U07.1 COVID-19 (principal); A08.39 Other viral enteritis; E86.0 Dehydration; R33.9 Retention of urine, unspecified; N40.1 Benign prostatic hyperplasia with lower urinary tract symptoms; R33.8 Other retention of urine; E11.9 Type 2 diabetes mellitus without complications; I25.10 Atherosclerotic heart disease of native coronary artery without angina pectoris; H91.90 Unspecified hearing loss, unspecified ear; H54.7 Unspecified visual loss; Z79.01 Long term (current) use of anticoagulants; Z79.84 Long term (current) use of oral hypoglycemic drugs; Z79.82 Long term (current) use of aspirin; Z79.4 Long term (current) use of insulin; Z95.5 Presence of coronary angioplasty implant and graft; Z95.0 Presence of cardiac pacemaker
CPT/HCPCS: 71045; 80048 ×2; 80053; 81000; 82947 ×3; 83735; 84145; 85007; 85025; 85027 ×2; 85610; 86141; 87088; 87636; 96375; 99284; G0378; 36415; 96374

== ENCOUNTER 2021-12-30 11:36 | Emergency (ER) | payer MEDICARE, MEDICAID ==
[~2021-12-30] VITALS: Ht 185.4 cm; Wt 109.7 kg
[~2021-12-30 11:36] MED LIST changes: -B2/V1TAB PO; +B2/V1TAB2 PO; +EMPA25TA PO; +INSU200I4 SQ; +LATA7.5D OP; +SEMA1PEN3 SQ; +TMSL.4C PO
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
[2021-12-30 13:00] LABS: BASOPHILS # (AUTO) 0.1 10^3/uL (0.0-0.1); HEMATOCRIT 38 % (40-54); MEAN CORPUSCULAR VOLUME 89 fL (80-99); PLATELET COUNT 126 10^3/uL (130-400)
[2021-12-30 13:01] LABS: BASOPHILS % (AUTO) 1 % (0-10); EOSINOPHILS # (AUTO) 0.3 10^3/uL (0.0-0.3); EOSINOPHILS % (AUTO) 3 % (0-10); HEMOGLOBIN 12.3 g/dL (13.3-17.7); LYMPHOCYTES # (AUTO) 1.9 10^3/uL (1.0-4.0); LYMPHOCYTES % (AUTO) 16 % (12-44); MEAN CORPUSCULAR HEMOGLOBIN 29 pg (25-34); MEAN CORPUSCULAR HGB CONC 32 g/dL (32-36); MEAN PLATELET VOLUME 11.7 fL (9.0-12.2); MONOCYTES # (AUTO) 0.7 10^3/uL (0.0-1.0); MONOCYTES % (AUTO) 5 % (0-12); NEUTROPHILS # (AUTO) 9.2 10^3/uL (1.8-7.8); NEUTROPHILS % (AUTO) 75 % (42-75); WHITE BLOOD COUNT 12.2 10^3/uL (4.3-11.0)
[2021-12-30 13:04] LABS: ALBUMIN 3.4 GM/DL (3.2-4.5)
[2021-12-30 13:05] LABS: POTASSIUM 4.1 MMOL/L (3.6-5.0)
[2021-12-30 13:06] LABS: CALCIUM 8.9 MG/DL (8.5-10.1)
[2021-12-30 13:07] LABS: TOTAL PROTEIN 5.6 GM/DL (6.4-8.2)
[2021-12-30 13:09] LABS: BILIRUBIN,TOTAL 0.5 MG/DL (0.1-1.0)
[2021-12-30 13:11] LABS: CREATININE SERUM 1.06 MG/DL (0.60-1.30)
[2021-12-30 13:14] LABS: SMEAR SCAN COMMENT YES
[2021-12-30] MEDS ORDERED: NS IV 500 ML 500 ML IV SCH (13:30)
[2021-12-30] MEDS ORDERED: VANCOMYCIN 125 MG CAPSULE PO STA (14:19)
[2021-12-30] MEDS ORDERED: VANC125C5 PO ×2 (14:26→15:28)
[2021-12-30 14:40] VITALS: BP 140/63
== END 2021-12-30 14:40 | disposition home or self-care (01) ==
LOC: EDUNIT# 11:36 → ER 11:38
DX: A04.72 Enterocolitis due to Clostridium difficile, not specified as recurrent (principal); G47.30 Sleep apnea, unspecified; E66.9 Obesity, unspecified; Z99.89 Dependence on other enabling machines and devices; Z68.31 Body mass index [BMI] 31.0-31.9, adult
CPT/HCPCS: 36415; 80053; 82274; 85025; 87015; 87045; 87046; 87324; 87328; 87329; 87449; 87899

== ENCOUNTER 2022-01-14 00:57 | Inpatient (IN) | payer MEDICARE, MEDICAID ==
[~2022-01-14] VITALS: Ht 185.5 cm; Wt 113.7 kg
[~2022-01-14 00:57] MED LIST changes: -LATA7.5D OP; +LATA7.5D OU; +VANC125C5 PO
[2022-01-14] MEDS ORDERED: LACTATED RINGERS 1,000 ML IV ONE ×2 (01:00→05:30)
[2022-01-14 01:24] LABS: ALBUMIN 3.5 GM/DL (3.2-4.5)
[2022-01-14 01:25] LABS: POTASSIUM 3.7 MMOL/L (3.6-5.0)
[2022-01-14 01:26] LABS: CALCIUM 9.4 MG/DL (8.5-10.1)
[2022-01-14 01:27] LABS: TOTAL PROTEIN 5.9 GM/DL (6.4-8.2)
[2022-01-14 01:29] LABS: BILIRUBIN,TOTAL 0.6 MG/DL (0.1-1.0)
[2022-01-14 01:31] LABS: CREATININE SERUM 1.19 MG/DL (0.60-1.30)
[2022-01-14 01:33] LABS: MAGNESIUM 2.3 MG/DL (1.6-2.4)
[2022-01-14 01:41] LABS: CREATINE KINASE MB 1.4 NG/ML (<6.6)
[2022-01-14 01:54] LABS: BASOPHILS # (AUTO) 0.1 10^3/uL (0.0-0.1); BASOPHILS % (AUTO) 0 % (0-10); EOSINOPHILS # (AUTO) 0.3 10^3/uL (0.0-0.3); EOSINOPHILS % (AUTO) 1 % (0-10); HEMATOCRIT 36 % (40-54); HEMOGLOBIN 11.6 g/dL (13.3-17.7); LYMPHOCYTES # (AUTO) 2.1 10^3/uL (1.0-4.0); LYMPHOCYTES % (AUTO) 12 % (12-44); MEAN CORPUSCULAR HEMOGLOBIN 29 pg (25-34); MEAN CORPUSCULAR HGB CONC 32 g/dL (32-36); MEAN CORPUSCULAR VOLUME 90 fL (80-99); MEAN PLATELET VOLUME 11.4 fL (9.0-12.2); MONOCYTES # (AUTO) 0.9 10^3/uL (0.0-1.0); MONOCYTES % (AUTO) 5 % (0-12); NEUTROPHILS # (AUTO) 14.2 10^3/uL (1.8-7.8); NEUTROPHILS % (AUTO) 81 % (42-75); PLATELET COUNT 120 10^3/uL (130-400); WHITE BLOOD COUNT 17.6 10^3/uL (4.3-11.0)
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
[2022-01-14 02:25] LABS: EOSINOPHILS % (MANUAL) 1 %; LYMPHOCYTES % (MANUAL) 15 %; MONOCYTES % (MANUAL) 3 %; NEUTROPHILS % (MANUAL) 81 %; RBC MORPH NORMAL
[2022-01-14] MEDS ORDERED: HOLD METFORMIN - RECEIVED CONTRAST 20 ML VIAL IV SCH (03:00)
[2022-01-14] MEDS ORDERED: NS 100 ML (IVPB) BAG IV ONE (03:00)
[2022-01-14] MEDS ORDERED: IOHEXOL 350 MG/ML 100 ML (OMNIPAQUE 350) VIAL IV ONE (03:00)
[2022-01-14 05:09] LABS: BILIRUBIN,URINE NEGATIVE (NEGATIVE); CLARITY,URINE CLEAR; COLOR,URINE YELLOW; GLUCOSE, URINE (UA) 2+ (NEGATIVE); KETONES,URINE NEGATIVE (NEGATIVE); LEUKOCYTE ESTERASE ,URINE TRACE (NEGATIVE); NITRITE,URINE POSITIVE (NEGATIVE); PROTEIN,URINE NEGATIVE (NEGATIVE)
[2022-01-14 05:33] LABS: BACTERIA,URINE FEW /HPF; CALCIUM OXALATE CRYSTALS,UR FEW /LPF; SQUAMOUS EPITHELIAL CELL,UR 0-2 /HPF; WBC,URINE 25-50 /HPF
[2022-01-14] MEDS ORDERED: VANCOMYCIN 125 MG CAPSULE PO ONE (05:45)
--- NOTE | 2022-01-14 06:04 | Diagnostic Imaging Report ---
EXAMINATION: Chest 1 view HISTORY: DIZZINESS COMPARISON: 12/08/2021 FINDINGS: Heart size and pulmonary vasculature are normal. Mild interstitial opacities within the mid and lower left lung. No pleural effusion or pneumothorax. Linear atelectasis or scarring in the right lower lung. Right-sided cardiac device is present. The osseous structures are intact. IMPRESSION: 1. Mild interstitial opacities within the lower left lung which could represent atelectasis or scarring. Differential consideration would include edema or pneumonia in the appropriate clinical setting. Dictated by: Dictated on workstation # [id number]
--- NOTE | 2022-01-14 06:19 | Diagnostic Imaging Report ---
EXAMINATION: CT abdomen and pelvis with intravenous contrast. TECHNIQUE: Multiple contiguous axial images were obtained through the abdomen and pelvis after the uneventful administration of intravenous contrast. All CT scans use one or more of the following dose optimizing techniques: automated exposure control, MA and/or KvP adjustment based on patient size and exam type or iterative reconstruction. HISTORY: DIARRHEA, ABD PAIN, RECENT C. DIF COMPARISON: 06/23/2020 FINDINGS: Lung bases: Bibasilar dependent atelectasis. Solid organs: The liver is normal without focal lesion. The gallbladder is surgically absent. There is mild biliary duct dilatation which may be secondary to reservoir effect from prior cholecystectomy. Pancreas is normal. Numerous hypodense lesions seen throughout the spleen which are indeterminate. Peripheral wedge-shaped area of hypointensity which may be related to surgical prior infection, infarct, or trauma. Adrenal glands are normal. The kidneys are normal without hydronephrosis. Bowel: The stomach and small bowel are normal without obstruction. There is scattered colonic diverticulosis. Fluid is seen throughout the colon compatible with history of diarrhea. No findings of acute appendicitis. Peritoneum: There is no intraperitoneal free fluid or free air. No suspicious lymphadenopathy. Vasculature: Calcification of the aorta without aneurysm. Musculoskeletal: Degenerative changes of the spine without suspicious osseous lesion or compression fracture. Pelvis: The prostate gland is normal. There is mild bladder wall thickening. IMPRESSION: 1. No acute abnormality in the abdomen or pelvis. 2. Fluid seen throughout the colon which can be seen history diarrhea. 3. Agree with preliminary interpretation. Dictated by: Dictated on workstation # [id number]
[2022-01-14] MEDS ORDERED: LACTATED RINGERS 1,000 ML IV SCH (06:45)
[2022-01-14] MEDS ORDERED: ONDANSETRON 4 MG/2 ML (SDV) Z0FRAN IV PRN (06:45)
[2022-01-14 06:48] VITALS: BP 116/60
[2022-01-14] MEDS: inSUlin ASPART (NovoLOG) 1 UNIT/0.01 ML (CHARGE PER UNIT) SC SCH ×4 (06:58→20:49)
[2022-01-14] MEDS: LACTATED RINGERS 1,000 ML IV SCH ×8 (07:10→17:48)
[2022-01-14 07:54] VITALS: BP 111/66
[2022-01-14 11:25] VITALS: BP 137/75
[2022-01-14] MEDS: VANCOMYCIN 125 MG CAPSULE PO SCH ×3 (12:11→23:40)
[2022-01-14] MEDS ORDERED: POTA8CAP20 PO (13:35)
[2022-01-14] MEDS ORDERED: GLUC0.5A SQ (13:38)
[2022-01-14 15:20] VITALS: BP 150/64
[2022-01-14 20:31] VITALS: BP 161/72
[2022-01-14 23:42] VITALS: BP 126/80
[2022-01-15] MEDS: LACTATED RINGERS 1,000 ML IV SCH (00:16)
[2022-01-15 04:28] VITALS: BP 156/72
[2022-01-15] MEDS: VANCOMYCIN 125 MG CAPSULE PO SCH ×4 (05:48→23:28)
[2022-01-15 05:58] LABS: HEMATOCRIT 33 % (40-54); MEAN CORPUSCULAR VOLUME 89 fL (80-99); MONOCYTES # (AUTO) 0.8 10^3/uL (0.0-1.0)
[2022-01-15 06:00] LABS: BASOPHILS # (AUTO) 0.1 10^3/uL (0.0-0.1); BASOPHILS % (AUTO) 0 % (0-10); EOSINOPHILS # (AUTO) 0.3 10^3/uL (0.0-0.3); EOSINOPHILS % (AUTO) 2 % (0-10); HEMOGLOBIN 10.6 g/dL (13.3-17.7); LYMPHOCYTES # (AUTO) 1.5 10^3/uL (1.0-4.0); LYMPHOCYTES % (AUTO) 11 % (12-44); MEAN CORPUSCULAR HEMOGLOBIN 28 pg (25-34); MEAN CORPUSCULAR HGB CONC 32 g/dL (32-36); MEAN PLATELET VOLUME 11.3 fL (9.0-12.2); MONOCYTES % (AUTO) 6 % (0-12); NEUTROPHILS # (AUTO) 11.1 10^3/uL (1.8-7.8); NEUTROPHILS % (AUTO) 81 % (42-75); PLATELET COUNT 105 10^3/uL (130-400); WHITE BLOOD COUNT 13.8 10^3/uL (4.3-11.0)
[2022-01-15] MEDS ORDERED: POTASSIUM CHLORIDE INJ 20 MEQ in D5 NS 1000 ML IV SOLUTION 1,000 ML IV SCH (06:15)
[2022-01-15] MEDS ORDERED: DEXTROSE 10% IV SOLUTION 250 ML IV PRN (06:15)
[2022-01-15] MEDS: inSUlin ASPART (NovoLOG) 1 UNIT/0.01 ML (CHARGE PER UNIT) SC SCH ×4 (06:19→20:36)
[2022-01-15 06:28] LABS: ALBUMIN 2.7 GM/DL (3.2-4.5)
[2022-01-15 06:30] LABS: CALCIUM 8.3 MG/DL (8.5-10.1)
[2022-01-15 06:33] LABS: BILIRUBIN,TOTAL 0.8 MG/DL (0.1-1.0)
[2022-01-15 06:35] LABS: CREATININE SERUM 0.84 MG/DL (0.60-1.30)
[2022-01-15] MEDS: D5 NS W/KCL 20 MEQ/L 1,000 ML IV SCH ×2 (06:36→16:41)
[2022-01-15 07:54] VITALS: BP 173/62
[2022-01-15] MEDS ORDERED: morphine INJ 4 MG/ML 1 ML (VIAL/SYRINGE) IV PRN (08:15)
[2022-01-15] MEDS ORDERED: diphenhydrAMINE 50 MG/ML INJ (BENADRYL) IVP PRN (08:15)
[2022-01-15] MEDS ORDERED: polyethylene glycoL POWDER 17 GM (MIRALAX) PACK PO PRN (08:15)
[2022-01-15] MEDS ORDERED: ONDANSETRON 4 MG/2 ML (SDV) Z0FRAN IV PRN (08:15)
[2022-01-15] MEDS ORDERED: NITROGLYCERIN 0.4 MG SL TABS BTL 25'S SL PRN (08:15)
[2022-01-15] MEDS ORDERED: cloNIDine 0.1 MG (CATAPRES) TAB PO PRN (08:15)
[2022-01-15] MEDS ORDERED: BISACODYL 10 MG SUPP (DULCOLAX) PR PRN (08:15)
[2022-01-15] MEDS ORDERED: ACETAMINOPHEN 325 MG TABLET PO PRN (08:15)
[2022-01-15] MEDS ORDERED: MELATONIN 3 MG TABLET PO PRN (08:15)
[2022-01-15] MEDS ORDERED: ENOXAPARIN 40 MG/0.4 ML (LOVENOX) SYR SC SCH (08:15)
[2022-01-15] MEDS ORDERED: ONDANSETRON 4 MG (ZOFRAN) ORAL DISSOLVE TAB PO PRN (08:15)
[2022-01-15] MEDS ORDERED: LACTULOSE SYRUP 10GM/15ML (ENULOSE) 30ML UDC PO PRN (08:15)
[2022-01-15] MEDS ORDERED: CALCIUM CARBONATE 500 MG (TUMS) TAB.CHEW PO PRN (08:15)
[2022-01-15] MEDS ORDERED: ANTACID SUSP 30 ML UDC (MYLANTA) PO PRN (08:15)
[2022-01-15] MEDS ORDERED: RT-ALBUTEROL SULF 2.5 MG/3 ML PRE-MIX VIAL INH PRN (08:15)
[2022-01-15] MEDS ORDERED: MILK OF MAGNESIA 400 MG/5 ML 30 ML UDC PO PRN (08:15)
[2022-01-15] MEDS ORDERED: diphenhydrAMINE 25 MG TAB (BENADRYL) PO PRN (08:15)
[2022-01-15] MEDS ORDERED: MEROPENEM 2,000 MG in NS (IVPB) 100 ML IV SCH (08:15)
[2022-01-15] MEDS ORDERED: amLODIPine 5 MG (NORVASC) TAB PO NR (08:30)
[2022-01-15] MEDS: EMPAGLIFLOZIN 10 MG TABLET (JARDIANCE) PO SCH (08:44)
[2022-01-15] MEDS: TAMSULOSIN 0.4 MG (FLOMAX) CAP PO SCH ×2 (08:44→20:36)
[2022-01-15] MEDS: meTOprolol TARTRATE 50 MG (LOPRESSOR) TAB PO SCH ×2 (08:44→20:36)
[2022-01-15] MEDS: SERTRALINE 50 MG (ZOLOFT) TABLET PO SCH (08:44)
[2022-01-15] MEDS: KCL 8 MEQ (MICRO K) TABLET PO SCH (08:45)
[2022-01-15] MEDS: LOSARTAN 25 MG (COZAAR) TAB PO SCH (08:45)
[2022-01-15] MEDS: CALCIUM CARB + VIT D 600 MG (CALCARB + D) TAB PO SCH (08:45)
[2022-01-15] MEDS: APIXABAN 5 MG (ELIQUIS) TABLET PO SCH ×2 (08:45→20:36)
--- NOTE | 2022-01-15 08:45 | Consultation-Cardiology ---
HPI-Cardiology Cardiology Consultation: Date of Consultation 01/15/22 Time Seen by a Provider: 09:00 Date of Admission 01-14-22 Attending Physician Donato Paz DO Admitting Physician Admitting Physician: Abdiel Garcia MD Attending Physician: Radha De Dios DO Consulting Physician Guillermo Sparrow MD HPI: Chief Complaint: Hypertension Mr. Carter is an 86 yr old male who was admitted to [facility] from the ED d/t diarrhea. He reports he has been on abx at home for a UTI. He developed significant diarrhea yesterday. No c/o CP, SOB, palpitations, syncope, near syncope or LE swelling. He is currently sitting up in a recliner and states he feels better today other than some gen weakness. Review of Systems-Cardiology Review of Systems Constitutional: No chills, No fever; malaise Eyes: No vision change Ears/Nose/Throat: No epistaxis, No recent hearing loss Respiratory: As described under HPI Cardiovascular: As described under HPI Gastrointestinal: As described under HPI Genitourinary: No dysuria, No hematuria Musculoskeletal: no symptoms reported Skin: No rash on exposed areas, No ulcerations on exposed areas Psychiatric/Neurological: No anxiety, No depression, No seizure, No focal weakness, No syncope Hematologic: No bleeding abnormalities VBK-Qhyjrz-Bdeukg Hx Patient Social History 2nd Hand Smoke Exposure: No Have you traveled recently?: No Alcohol Use?: No Pt feels they are or have been: No Immunizations Up To Date Tetanus Booster (TDap): Unknown Date of Pneumonia Vaccine: Feb 11, 2017 Date of Influenza Vaccine: Jan 16, 2020 Past Medical History PMH As described under Assessment. Family Medical History Family Medical History: H/O CAD in his father, brother and a son Allergies and Home Medications Allergies Coded Allergies: Penicillins (Verified Allergy, Severe, Anaphylaxis, 01/15/22) promethazine (Verified Allergy, Severe, Anaphylaxis, 01/15/22) ramelteon (Verified Allergy, Unknown, Shortness of Breath, 02/27/20) "Severe bronchospasm" sotalol (Verified Allergy, Unknown, Shortness of Breath, 02/27/20) "Severe bronchospasm" Patient Home Medication List Albuterol Sulfate (Ventolin Hfa) 18 Gm Hfa.aer.ad, 2 PUFF INH Q4H PRN for SHORTNESS OF BREATH, (Reported) Entered as Reported by: DONATO MORRISON on 04/20/20 1038 Last Action: Continued Apixaban (Eliquis) 5 Mg Tablet, 5 MG PO BID, (Reported) Entered as Reported by: CLARISA SOARES on 04/20/2016 Last Action: Continued Aspirin (Aspirin EC) 81 Mg Tablet.dr, 162 MG PO HS, (Reported) Entered as Reported by: DONATO MORRISON on 04/20/20 1049 Last Action: Continued Atorvastatin Calcium (Atorvastatin Calcium) 20 Mg Tablet, 20 MG PO HS, (Reported) Entered as Reported by: CLARISA SOARES on 04/20/20615 Last Action: Continued Calcium Carbonate/Vitamin D3 (Calcium 600 + Vit D3 400 Tab) 1 Each Tablet, 1 EACH PO DAILY, (Reported) Entered as Reported by: CLARISA SOARES on 04/20/20615 Last Action: Continued Empagliflozin (Jardiance) 25 Mg Tablet, 25 MG PO DAILY, (Reported) Entered as Reported by: ABHINAV CAZARES on 12/10/21 125 Last Action: Converted Fluticasone/Umeclidin/Vilanter (Trelegy Ellipta 100-62.5-25) 1 Each Blst.w.dev, 1 PUFF INH HS, (Reported) Entered as Reported by: CLARISA SOARES on 04/20/20615 Last Action: Converted Furosemide (Furosemide) 20 Mg Tablet, 20 MG PO DAILY, (Reported) Entered as Reported by: EMELYN CABRERA on 09/12/20 0742 Last Action: Held Glucagon (Gvoke Hypopen) 0.5 Mg/0.1 Ml Auto.injct, 0.5 MG SQ DAILY PRN for HYPOGLYCEMIA, (Reported) Entered as Reported by: CALVIN RING on 01/14/22 1338 Last Action: Held Insulin Degludec (Tresiba Flextouch U-200) 200 Unit/Ml (3 Ml) Insuln.pen, 134 UNITS SQ DAILY, (Reported) Entered as Reported by: ABHINAV CAZARES on 12/10/21 1255 Last Action: Held Latanoprost/Pf (Latanoprost 0.005% Eye Drop) 0.005 % Drops, 1 DROP OU HS, (Reported) Entered as Reported by: ABHINAV CAZARES on 12/10/211254 Last Action: Converted Losartan Potassium (Losartan Potassium) 25 Mg Tablet, 12.5 MG PO DAILY, (Reported) Entered as Reported by: CLARISA SOARES on 04/20/20615 Last Action: Continued Metoprolol Tartrate (Metoprolol Tartrate) 50 Mg Tablet, 50 MG PO BID, (Reported) Entered as Reported by: CLARISA SOARES on 04/20/2016 Last Action: Continued Nitroglycerin (Nitroglycerin) 0.4 Mg Tab.subl, 0.4 MG SL UD PRN for CHEST PAIN (ANGINA), (Reported) Entered as Reported by: DONATO MORRISON on 04/20/20 1038 Last Action: Continued Potassium Chloride (Potassium Chloride) 8 Meq Capsule.er, 16 MEQ PO DAILY, (Reported) Entered as Reported by: CALVIN RING on 01/14/221334 Last Action: Continued Semaglutide (Ozempic) 1 Mg/0.75 Ml (4 Mg/3 Ml) Pen.injctr, 0.5 MG SQ FRIDAY, (Reported) Entered as Reported by: ABHINAV CAZARES on 12/10/211254 Last Action: Held Sertraline HCl (Sertraline HCl) 50 Mg Tablet, 75 MG PO DAILY, (Reported) Entered as Reported by: ABHINAV CAZARES on 12/10/211254 Last Action: Continued Tamsulosin HCl (Flomax) 0.4 Mg Cap, 1 CAP PO BID, (Reported) Entered as Reported by: ABHINAV CAZARES on 12/10/211254 Last Action: Continued Physical Exam-Cardiology Physical Exam Vital Signs/I&O 01/14/22 01/15/22 01/15/22 01/15/22 23:42 01:00 04:28 07:00 Temp 36.6 36.6 Pulse 67 70 72 75 Resp 20 20 B/P (MAP) 126/80 (95) 156/72 (100) Pulse Ox 96 94 O2 Delivery Room Air Room Air 01/15/22 01/15/22 07:40 07:54 Temp 36.0 Pulse 78 Resp 16 B/P (MAP) 173/62 (99) Pulse Ox 95 O2 Delivery Room Air Room Air 01/15/22 00:00 Intake Total 1910 ml Output Total 200 ml Balance 1710 ml Capillary Refill : Less Than 3 Seconds Constitutional: AAO x 3, well-developed, well-nourished HEENT: PERRL, hearing is well preserved, oral hygience is good Neck: No carotid bruit; carotid pulses are 2 + bilaterally Respiratory: No accessory muscle use, No respiratory distress; chest expansion is symmetric, chest is bilaterally symmetric, lungs clear to auscultation Cardiovascular: regular rate-rhythm; No JVD; S1 and S2 Gastrointestinal: No tender; soft, round, audible bowel sounds Extremities: no lower extremity edema bilateral Neurologic/Psychiatric: grossly intact (moves all extremities) Skin: No rash on exposed areas, No ulcerations on exposed areas Data Review Labs Laboratory Tests 01/14/22 11:24: Glucometer 78 01/14/22 15:27: Glucometer 60*L 01/14/22 20:25: Glucometer 58*L 01/14/22 21:17: Glucometer 98 01/15/22 05:30: White Blood Count 13.8H, Red Blood Count 3.73L, Hemoglobin 10.6L, Hematocrit 33L , Mean Corpuscular Volume 89, Mean Corpuscular Hemoglobin 28, Mean Corpuscular Hemoglobin Concent 32, Red Cell Distribution Width 14.8H, Platelet Count 105L, Mean Platelet Volume 11.3, Immature Granulocyte % (Auto) 1, Neutrophils (%) (Auto) 81H, Lymphocytes (%) (Auto) 11L, Monocytes (%) (Auto) 6, Eosinophils (%) (Auto) 2, Basophils (%) (Auto) 0, Neutrophils # (Auto) 11.1H, Lymphocytes # (Auto) 1.5, Monocytes # (Auto) 0.8, Eosinophils # (Auto) 0.3, Basophils # (Auto) 0.1, Immature Granulocyte # (Auto) 0.1, Percent Immature Platelet Fraction 5.1, Sodium Level 141, Potassium Level 4.0, Chloride Level 111H, Carbon Dioxide Level 19L, Anion Gap 11, Blood Urea Nitrogen 11, Creatinine 0.84, Estimat Glomerular Filtration Rate 86, BUN/Creatinine Ratio 13, Glucose Level 57*L, Calcium Level 8.3L, Corrected Calcium 9.3, Total Bilirubin 0.8, Aspartate Amino Transf (AST/SGOT) 25, Alanine Aminotransferase (ALT/SGPT) 15, Alkaline Phosphatase 63, Total Protein 5.0L, Albumin 2.7L 01/15/22 06:42: Glucometer 113H Microbiology 01/14/22 Urine Culture - Preliminary, Resulted Pseudomonas aeruginosa 01/14/22 C. difficile GDH Antigen & Toxins - Final, Complete Radiology NAME: KAREN CARTER [facility] REC#: [id number] PT STATUS: ADM IN : 1935 PHYSICIAN: MARYJO MILLER DO ADMIT DATE: 01/14/22 Signed Date of Exam:01/14/22 CHEST 1 VIEW, AP/PA ONLY EXAMINATION: Chest 1 view HISTORY: DIZZINESS COMPARISON: 12/08/2021 FINDINGS: Heart size and pulmonary vasculature are normal. Mild interstitial opacities within the mid and lower left lung. No pleural effusion or pneumothorax. Linear atelectasis or scarring in the right lower lung. Right-sided cardiac device is present. The osseous structures are intact. IMPRESSION: 1. Mild interstitial opacities within the lower left lung which could represent atelectasis or scarring. Differential consideration would include edema or pneumonia in the appropriate clinical setting. Dictated by: Dictated on workstation # [id number] Dict: 01/14/2202 Trans: 01/14/22 0759 CYRIL [id number] Interpreted by: KATIE RAMÍREZ DO Electronically signed by: KATIE RAMÍREZ DO 01/14/22 0759 NAME: JOSE CARTERVINCENT Yuan [facility] REC#: [id number] PT STATUS: ADM IN : 1935 PHYSICIAN: MARYJO MILLER DO ADMIT DATE: 01/14/22 Signed Date of Exam:01/14/22 CT ABDOMEN/PELVIS W EXAMINATION: CT abdomen and pelvis with intravenous contrast. TECHNIQUE: Multiple contiguous axial images were obtained through the abdomen and pelvis after the uneventful administration of intravenous contrast. All CT scans use one or more of the following dose optimizing techniques: automated exposure control, MA and/or KvP adjustment based on patient size and exam type or iterative reconstruction. HISTORY: DIARRHEA, ABD PAIN, RECENT C. DIF COMPARISON: 06/23/2020 FINDINGS: Lung bases: Bibasilar dependent atelectasis. Solid organs: The liver is normal without focal lesion. The gallbladder is surgically absent. There is mild biliary duct dilatation which may be secondary to reservoir effect from prior cholecystectomy. Pancreas is normal. Numerous hypodense lesions seen throughout the spleen which are indeterminate. Peripheral wedge-shaped area of hypointensity which may be related to surgical prior infection, infarct, or trauma. Adrenal glands are normal. The kidneys are normal without hydronephrosis. Bowel: The stomach and small bowel are normal without obstruction. There is scattered colonic diverticulosis. Fluid is seen throughout the colon compatible with history of diarrhea. No findings of acute appendicitis. Peritoneum: There is no intraperitoneal free fluid or free air. No suspicious lymphadenopathy. Vasculature: Calcification of the aorta without aneurysm. Musculoskeletal: Degenerative changes of the spine without suspicious osseous lesion or compression fracture. Pelvis: The prostate gland is normal. There is mild bladder wall thickening. IMPRESSION: 1. No acute abnormality in the abdomen or pelvis. 2. Fluid seen throughout the colon which can be seen history diarrhea. 3. Agree with preliminary interpretation. Dictated by: ECG Impression ECG Comment Atrial paced A/P-Cardiology Assessment/Admission Diagnosis UTI - pseudomonas - management per medical services C-diff - management per medical services Poor balance of undetermined etiology - unchanged - has an appt to see neurology in [place], [place] Shortness of breath with exertion - chronic and unchanged - Echocardiogram of 06-08-20. LVEF 60-65%. Grade 2 diastolic dysfunction. Mild MR. Mild to mod TR. PASP 50-55mmHg H/o dual ch perm pacemaker ([employer] / [employer]) - implanted for symptomatic bradycardia in Nov [address] Brooks in [place], [place]. - gen change in late August 2020 - device functioning normally per interrogation of 11-07-21 S/p TAVR - ([employer] Model [id number], Sr no [id number]) on 12/24/19 at [place], [place] H/o SVT and A Fib/Fl - stated to have been treated with ablation in October 2016 at [facility] in [place], [place] - chronic apixaban anticoagulation CAD - H/o cor stents in Mar 2015 at [facility]. - MPI of 01-16-21 No evidence of any significant myocardial ischemia or infarction on this study. Normal regional wall motion. Normal global left ventricular systolic function with a calculated ejection fraction of 71%. COPD - managed by PCP DM II - managed by PCP Obesity - with BMI approx 38.5 and obesity-hypoventilation and MONISHA Medication Allergies - (per pt report): Anaphylaxis for penicillin and phenergan - bronchospasm with sotalol and rozarem Opthamology - H/o bilateral cataract surgery and lens implants L-sided, dry, macular degen Mild hearing loss - unchanged Carotid dz - There appears to be considerable plaque and moderate stenosis of the R common carotid and mild to moderate stenosis of the R internal carotid. Approximately 50% L internal carotid artery stenosis per u/s of Feb 23, 2020 - Carotid u/s of 07-03-21 shows approx 60-79% L ICA and approx 50% R ICA stenosis Leg discomfort - Segmentals pressure of Feb 23, 2020 showed no evidence of any signif blood flow impairment to the distal arterial circulation of the lower limbs. Prox atherosclerosis is suggested. - No c/o claudication Discussion and Recomendations UTI - management per medical services C-dif - management per medical services Uncontrolled HTN - restart home antihypertensive regimen and adjust as indicated Monitor lab - replace electrolytes as indicated PAF/flutter - continue OAC with Eliquis Further recs will be based on his hospital course We would like to thank medical services for this consult JAZMIN KERN Jan 15, 2022 08:45
[2022-01-15] MEDS ORDERED: NON-FORMULARY MEDICATION 1 EA EA (Empagliflozin (Jardiance) 25 MG) PO SCH (09:00)
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
--- NOTE | 2022-01-15 11:10 | Physical Therapy Evaluation ---
PT Evaluation-General Medical Diagnosis Admission Date Jan 14, 2022 at 05:25 Medical Diagnosis: C-Diff/dehydration Onset Date: Jan 14, 2022 Therapy Diagnosis Therapy Diagnosis: generalized weakness/debility Precautions Precautions/Isolations: Contact Isolation, Fall Prevention Referral Physician: Laner Reason for Referral: Evaluation/Treatment Medical History Pertinent Medical History: Atrial Fib, CAD, COPD, DM, HTN, Neuropathy History of Falls (past yr): Yes Prior Surgery (last 100 days): No Additional Medical History Covid 12/08/21 Current History EMS secondary to diarrhea, weakness, dizziness, abdominal cramping Reviewed History: Yes Social History Home: Single Level Current Living Status: Spouse Entry Into Home: Ramp Prior Prior Level of Function SCALE: Activities may be completed with or without assistive devices. 3-Qzxgmyoxwo-dvorbwu completes the activity by him/herself with no assistance from a helper. 5-Set-up or Clean-up Assistance-helper sets up or cleans up; patient completes activity. [place] assists only prior to or following the activity. 4-Supervision or Touching Assistance-helper provides verbal cues and/or touching/steadying and/or contact guard assistance as patient completes activity. Assistance may be provided throughout the activity or intermittently. 3-Partial/Moderate Assistance-helper does LESS THAN HALF the effort. [place] lifts, holds or supports trunk or limbs, but provides less than half the effort. 2-Substantial/Maximal Assistance-helper does MORE THAN HALF the effort. [place] lifts or holds trunk or limbs and provides more than half the effort. 4-Sgyqkyqew-zreobg does ALL the effort. Patient does none of the effort to complete the activity. Or, the assistance of 2 or more helpers is required for the patient to complete the activity. If activity was not attempted, code reason: 7-Patient Refused. 9-Not Applicable-not attempted and the patient did not perform the activity before the current illness, exacerbation or injury. 10-Not Attempted due to Environmental Limitations-(lack of equipment, weather restraints, etc.). 88-Not Attempted due to Medical Conditions or Safety Concerns. Bed Mobility: 3 Transfers (B,C,W/C): 3 Gait: 3 Stairs: 9 Indoor Mobility (Ambulation): Needed Some Help Stairs: Not Applicalbe Prior Devices Use: Manual wheelchair, Motorized scooter, Walker Prior Device Use: lift chair PT Evaluation-Current Subjective Patient agrees to PT. Objective Patient Orientation: Person, Time, Situation Attachments: IV ROM/Strength ROM Lower Extremities bilateral LE WFL Strength Lower Extremities 3/5 grossly bilateral LE Integumentary/Posture Bowel Incontinence: Yes Bladder Incontinence: Yes Posture WFL Neuromuscular (Tone, Coordination, Reflexes) grossly intact Sensory Vision: Wears Glasses Hearing: Functional Transfers Lying to Sitting/Side of Bed(Q: 3 Sit to Stand (QC): 3 Chair/Wmw-zi-Zwswz Xfer(QC): 3 Gait Mode of Locomotion: Both Anticipated Mode of Locomotion: Both Walk 10 feet (QC): 3 (x 3) Gait Assistive Device: FWW Comments/Gait Description functional gait sequence with short distances Wheelchair Training Does the Pt Use a Wheelchair?: Yes Balance Sitting Static: Normal Sitting Dynamic: Normal Standing Static: Fair Standing Dynamic: Fair Assessment/Needs Per spouse, patient ambulates 20-40' in home and utilizes w/c or power chair outside of home and in community. Patient does have a history of falls. Spouse reports afternoons and evenings are patient's "times of extreme weakness". PT to address functional strength and mobility to ensure safe return to home or care facility at maximum LOF. Rehab Potential: Fair PT Residential Goals Residential Goals PT Residential Goals Time Frame: Jan 26, 2022 Roll Left & Right (QC): 3 Sit to Lying (QC): 3 Lying-Sitting on Side/Bed(QC): 3 Sit to Stand (QC): 3 Chair/Oli-mx-Mlbyh Xfer(QC): 3 Toilet Transfer (QC): 3 Walk 10 feet (QC): 3 Walk 50ft with 2 Turns (QC): 3 PT Plan Problem List Problem List: Activity Tolerance, Functional Strength, Safety, Balance, Gait, Transfer, Bed Mobility Treatment/Plan Treatment Plan: Continue Plan of Care Treatment Plan: Bed Mobility, Education, Functional Activity Rani, Functional Strength, Gait, Safety, Therapeutic Exercise, Transfers Treatment Duration: Jan 26, 2022 Frequency: 6 times per week Estimated Hrs Per Day: .25 hour per day Patient and/or Family Agrees t: Yes Time/GCodes Time In: 1031 Time Out: 1045 Total Billed Treatment Time: 14 Total Billed Treatment 1 [facility] 14 min SHAWNA TAVARES PT Jan 15, 2022 11:10
[2022-01-15 12:00] VITALS: BP 147/73
--- NOTE | 2022-01-15 13:59 | Occupational Therapy Eval ---
OT Evaluation-General/PLF Medical Diagnosis Admission Date Jan 14, 2022 at 05:25 Medical Diagnosis: C-Diff/dehydration Onset Date: Jan 14, 2022 Therapy Diagnosis Therapy Diagnosis: decreased ADL status Precautions Precautions/Isolations: Contact Isolation, Fall Prevention Referral Physician: Lanre Portillo Reason: Evaluation/Treatment Medical History Pertinent Medical History: Atrial Fib, CAD, COPD, DM, HTN, Neuropathy Additional Medical History STEMI, pacemaker, CAD, HTN, afib, DM, asthma, COPD, irregular heartbeat, neuropathy. Current History ED c/o diarrhea and lower abdominal pain. 2 recent hospitalizations - 12/08/21 with COVID & 12/30/21 with C-diff Social History Home: Single Level Current Living Status: Spouse Entry Into Home: Ramp ADL-Prior Level of Function SCALE: Activities may be completed with or without assistive devices. 6-Ujypptsodt-qfdclvu completes the activity by him/herself with no assistance from a helper. 5-Set-up or Clean-up Assistance-helper sets up or cleans up; patient completes activity. [place] assists only prior to or following the activity. 4-Supervision or Touching Assistance-helper provides verbal cues and/or touching/steadying and/or contact guard assistance as patient completes activity. Assistance may be provided throughout the activity or intermittently. 3-Partial/Moderate Assistance-helper does LESS THAN HALF the effort. [place] lifts, holds or supports trunk or limbs, but provides less than half the effort. 2-Substantial/Maximal Assistance-helper does MORE THAN HALF the effort. [place] lifts or holds trunk or limbs and provides more than half the effort. 5-Nmtoqdjps-xqtnme does ALL the effort. Patient does none of the effort to complete the activity. Or, the assistance of 2 or more helpers is required for the patient to complete the activity. If activity was not attempted, code reason: 7-Patient Refused. 9-Not Applicable-not attempted and the patient did not perform the activity before the current illness, exacerbation or injury. 10-Not Attempted due to Environmental Limitations-(lack of equipment, weather restraints, etc.). 88-Not Attempted due to Medical Conditions or Safety Concerns. ADL PLOF Comments Pt reports living with spouse who provides assistance with ADLs and mobility. Pt states his assists him with LBD and footwear, he is typically able to toilet himself, but his assists if needed. He showers himself, but isn't super thorough with washing BLEs lower legs/feet, would require assistance for thoroughness. He has a walk in shower with SC. Self Care: Needed Some Help Functional Cognition: Needed Some Help DME/Equipment: Bath Chair, Shower DME/Equipment Comments walker, lift chair, manual w/c, motorized scooter OT Current Status Subjective Pt up in recliner, agreeable to OT evaluation. Mental Status/Objective Patient Orientation: Person, Place, Situation Attachments: IV Current Upper Extremity ROM WFL, BUE shoulder flexion to approx 140 degrees Upper Extremity Strength grossly 3/5 ADL-Treatment Eating (QC): 6 (IND per nursing and pt report) Shower/Bathe Self (QC): 3 (Per clincial judgment, this is pt's baseline.) On/Off Footwear (QC): 3 (Mod A. This is pt's baseline. Pt able to doff, required assistance donning gripper socks.) Other Treatments Pt in recliner, provided information about PLOF and home set up and participated in UE screen. Pt reports difficulty with LBD, footwear, and washing BLEs in shower, his assists with ADLs at PLOF. Pt demo'd ability to doff socks, unable to don, so OT assisted. This is pt's baseline. Pt declined toileting at this time, but feels like he would be able to manage everything with increased time. Pt able to reach towards ankles during footwear, but per clinical judgment, would require assistance washing BLEs lower legs/feet for thoroughness, this is pt's PLOF. Post tx, pt in recliner, call light in reach and all needs met. Education OT Patient Education: Correct positioning, Modified ADL techniques, Progress toward Goal/Update tx plan, Purpose of tx/functional activities, Rehab process Teaching Recipient: Patient Teaching Methods: Discussion Response to Teaching: Verbalize Understanding OT Church Administrator Goals Correction Goals 1=Demonstrate adherence to instructed precautions during ADL tasks. 2=Patient will verbalize/demonstrate understanding of assistive devices/modifications for ADL. 3=Patient will improve strength/tolerance for activity to enable patient to perform ADL's. OT Education/Plan Problem List/Assessment Assessment: No Skilled OT Needs ID'd No skilled OT services indicated at this time, as pt is at his PLOF with ADLs. Pt has assistance with ADLs at baseline, thus no skilled OT services indicated at this time. d/c from OT. Discharge Recommendations Plan/Recommendations: Discharge/Goals Met Treatment Plan/Plan of Care Patient would benefit from OT for education, treatment and training to promote i ndependence in ADL's, mobility, safety and/or upper extremity function for ADL's. Plan of Care: ADL Retraining, Functional Mobility, UE Funct Exercise/Act Treatment Duration: Jan 15, 2022 Frequency: 1 time per week (eval only) Estimated Hrs Per Day: .25 hour per day Rehab Potential: Fair Time/GCodes Start Time: 13:34 Stop Time: 13:44 Total Time Billed (hr/min): 10 Billed Treatment Time 1, MARLEY LOVE OT Jan 15, 2022 13:59
--- NOTE | 2022-01-15 14:42 | Consultation-Cardiology ---
HPI-Cardiology Cardiology Consultation: Date of Consultation 01/15/22 Time Seen by a Provider: 12:00 Date of Admission Attending Physician Donato Paz DO Admitting Physician Admitting Physician: Abdiel Garcia MD Attending Physician: Radha De Dios DO Consulting Physician MERCEDES VAZQUEZ MD, MA, FACP, FACC, [facility], CCDS Physician requesting consult: Dr De Dios HPI: Chief Complaint: Reason for Card consult: Cardiac history Mr. Johnson is an 86 yr old male who was admitted to [facility] from the ED d/t diarrhea. He reports he has been on abx at home for a UTI. He developed significant diarrhea yesterday. No c/o CP, SOB, palpitations, syncope, near syncope or LE swelling. He is currently sitting up in a recliner and states he feels better today other than some gen weakness. Review of Systems-Cardiology Review of Systems Constitutional: No chills, No fever; malaise Eyes: No vision change Ears/Nose/Throat: No epistaxis, No recent hearing loss Respiratory: As described under HPI Cardiovascular: As described under HPI Gastrointestinal: As described under HPI Genitourinary: No dysuria, No hematuria Musculoskeletal: no symptoms reported Skin: No rash on exposed areas, No ulcerations on exposed areas Psychiatric/Neurological: No anxiety, No depression, No seizure, No focal weakness, No syncope Hematologic: No bleeding abnormalities OYD-Qarqck-Lcpyym Hx Patient Social History 2nd Hand Smoke Exposure: No Have you traveled recently?: No Alcohol Use?: No Pt feels they are or have been: No Immunizations Up To Date Tetanus Booster (TDap): Unknown Date of Pneumonia Vaccine: Feb 11, 2017 Date of Influenza Vaccine: Jan 16, 2020 Past Medical History PMH As described under Assessment. Family Medical History Family Medical History: H/O CAD in his father, brother and a son Allergies and Home Medications Allergies Coded Allergies: Penicillins (Verified Allergy, Severe, Anaphylaxis, 01/15/22) promethazine (Verified Allergy, Severe, Anaphylaxis, 01/15/22) ramelteon (Verified Allergy, Unknown, Shortness of Breath, 02/27/20) "Severe bronchospasm" sotalol (Verified Allergy, Unknown, Shortness of Breath, 02/27/20) "Severe bronchospasm" Patient Home Medication List Home Medication List Reviewed: Yes Albuterol Sulfate (Ventolin Hfa) 18 Gm Hfa.aer.ad, 2 PUFF INH Q4H PRN for SHORTNESS OF BREATH, (Reported) Entered as Reported by: DONATO MORRISON on 04/20/20 1038 Last Action: Continued Apixaban (Eliquis) 5 Mg Tablet, 5 MG PO BID, (Reported) Entered as Reported by: CLARISA SOARES on 04/20/20 0616 Last Action: Continued Aspirin (Aspirin EC) 81 Mg Tablet.dr, 162 MG PO HS, (Reported) Entered as Reported by: DONATO MORRISON on 04/20/20 1049 Last Action: Continued Atorvastatin Calcium (Atorvastatin Calcium) 20 Mg Tablet, 20 MG PO HS, (Reported) Entered as Reported by: CLARISA SOARES on 04/20/20615 Last Action: Continued Calcium Carbonate/Vitamin D3 (Calcium 600 + Vit D3 400 Tab) 1 Each Tablet, 1 EACH PO DAILY, (Reported) Entered as Reported by: CLARISA SOARES on 04/20/2016 Last Action: Continued Empagliflozin (Jardiance) 25 Mg Tablet, 25 MG PO DAILY, (Reported) Entered as Reported by: ABHINAV CAZARES on 12/10/21 1255 Last Action: Converted Fluticasone/Umeclidin/Vilanter (Trelegy Ellipta 100-62.5-25) 1 Each Blst.w.dev, 1 PUFF INH HS, (Reported) Entered as Reported by: CLARISA SOARES on 04/20/2016 Last Action: Converted Furosemide (Furosemide) 20 Mg Tablet, 20 MG PO DAILY, (Reported) Entered as Reported by: EMELYN CABRERA on 09/12/20 0742 Last Action: Held Glucagon (Gvoke Hypopen) 0.5 Mg/0.1 Ml Auto.injct, 0.5 MG SQ DAILY PRN for HYPOGLYCEMIA, (Reported) Entered as Reported by: CALVIN RING on 01/14/22 1338 Last Action: Held Insulin Degludec (Tresiba Flextouch U-200) 200 Unit/Ml (3 Ml) Insuln.pen, 134 UNITS SQ DAILY, (Reported) Entered as Reported by: ABHINAV CAZARES on 12/10/21 1255 Last Action: Held Latanoprost/Pf (Latanoprost 0.005% Eye Drop) 0.005 % Drops, 1 DROP OU HS, (Rep orted) Entered as Reported by: ABHINAV CAZARES on 12/10/21 125 Last Action: Converted Losartan Potassium (Losartan Potassium) 25 Mg Tablet, 12.5 MG PO DAILY, (Reported) Entered as Reported by: CLARISA SOARES on 04/20/2016 Last Action: Continued Metoprolol Tartrate (Metoprolol Tartrate) 50 Mg Tablet, 50 MG PO BID, (Reported) Entered as Reported by: CLARISA SOARES on 04/20/2016 Last Action: Continued Nitroglycerin (Nitroglycerin) 0.4 Mg Tab.subl, 0.4 MG SL UD PRN for CHEST PAIN (ANGINA), (Reported) Entered as Reported by: DONATO MORRISON on 04/20/20 1038 Last Action: Continued Potassium Chloride (Potassium Chloride) 8 Meq Capsule.er, 16 MEQ PO DAILY, (Reported) Entered as Reported by: CALVIN RING on 01/14/22 1335 Last Action: Continued Semaglutide (Ozempic) 1 Mg/0.75 Ml (4 Mg/3 Ml) Pen.injctr, 0.5 MG SQ FRIDAY, (Reported) Entered as Reported by: ABHINAV CAZARES on 12/10/211254 Last Action: Held Sertraline HCl (Sertraline HCl) 50 Mg Tablet, 75 MG PO DAILY, (Reported) Entered as Reported by: ABHINAV CAZARES on 12/10/211254 Last Action: Continued Tamsulosin HCl (Flomax) 0.4 Mg Cap, 1 CAP PO BID, (Reported) Entered as Reported by: ABHINAV CAZARES on 12/10/211254 Last Action: Continued Physical Exam-Cardiology Physical Exam Vital Signs/I&O 01/15/22 01/15/22 01/15/22 01/15/22 04:28 07:00 07:40 07:54 Temp 36.6 36.0 Pulse 72 75 78 Resp 20 16 B/P (MAP) 156/72 (100) 173/62 (99) Pulse Ox 94 95 O2 Delivery Room Air Room Air Room Air 01/15/22 01/15/22 12:00 13:00 Temp 36.0 Pulse 66 70 Resp 16 B/P (MAP) 147/73 (97) Pulse Ox 97 O2 Delivery Room Air 01/15/22 00:00 Intake Total 1910 ml Output Total 200 ml Balance 1710 ml Capillary Refill : Less Than 3 Seconds Constitutional: AAO x 3, well-developed, well-nourished HEENT: PERRL, hearing is well preserved, oral hygience is good Neck: No carotid bruit; carotid pulses are 2 + bilaterally Respiratory: No accessory muscle use, No respiratory distress; chest expansion is symmetric, chest is bilaterally symmetric, lungs clear to auscultation Cardiovascular: regular rate-rhythm; No JVD; S1 and S2 Gastrointestinal: No tender; soft, round, audible bowel sounds Extremities: no lower extremity edema bilateral Neurologic/Psychiatric: grossly intact (moves all extremities) Skin: No rash on exposed areas, No ulcerations on exposed areas Data Review Labs Laboratory Tests 01/14/22 15:27: Glucometer 60*L 01/14/22 20:25: Glucometer 58*L 01/14/22 21:17: Glucometer 98 01/15/22 05:30: White Blood Count 13.8H, Red Blood Count 3.73L, Hemoglobin 10.6L, Hematocrit 33L , Mean Corpuscular Volume 89, Mean Corpuscular Hemoglobin 28, Mean Corpuscular Hemoglobin Concent 32, Red Cell Distribution Width 14.8H, Platelet Count 105L, Mean Platelet Volume 11.3, Immature Granulocyte % (Auto) 1, Neutrophils (%) (Auto) 81H, Lymphocytes (%) (Auto) 11L, Monocytes (%) (Auto) 6, Eosinophils (%) (Auto) 2, Basophils (%) (Auto) 0, Neutrophils # (Auto) 11.1H, Lymphocytes # (Auto) 1.5, Monocytes # (Auto) 0.8, Eosinophils # (Auto) 0.3, Basophils # (Auto) 0.1, Immature Granulocyte # (Auto) 0.1, Percent Immature Platelet Fraction 5.1, Sodium Level 141, Potassium Level 4.0, Chloride Level 111H, Carbon Dioxide Level 19L, Anion Gap 11, Blood Urea Nitrogen 11, Creatinine 0.84, Estimat Glomerular Filtration Rate 86, BUN/Creatinine Ratio 13, Glucose Level 57*L, Calcium Level 8.3L, Corrected Calcium 9.3, Total Bilirubin 0.8, Aspartate Amino Transf (AST/SGOT) 25, Alanine Aminotransferase (ALT/SGPT) 15, Alkaline Phosphatase 63, Total Protein 5.0L, Albumin 2.7L 01/15/22 06:42: Glucometer 113H 01/15/22 10:31: Glucometer 135H Microbiology 01/14/22 Urine Culture - Preliminary, Resulted Pseudomonas aeruginosa 01/14/22 C. difficile GDH Antigen & Toxins - Final, Complete A/P-Cardiology Assessment/Admission Diagnosis UTI - pseudomonas - management per medical services C-diff - management per medical services Poor balance of undetermined etiology - unchanged - has an appt to see neurology in [place], [place] Shortness of breath with exertion - chronic and unchanged - Echocardiogram of 06-08-20. LVEF 60-65%. Grade 2 diastolic dysfunction. Mild MR. Mild to mod TR. PASP 50-55mmHg H/o dual ch perm pacemaker ([employer] / [employer]) - implanted for symptomatic bradycardia in Nov [address] Brooks in [place], [place]. - gen change in late August 2020 - device functioning normally per interrogation of 11-07-21 S/p TAVR - ([employer] Model [id number], Sr no [id number]) on 12/24/19 at [place], [place] H/o SVT and A Fib/Fl - stated to have been treated with ablation in October 2016 at [facility] in [place], [place] - chronic apixaban anticoagulation CAD - H/o cor stents in Mar 2015 at [facility]. - MPI of 01-16-21 No evidence of any significant myocardial ischemia or infarction on this study. Normal regional wall motion. Normal global left ventricular systolic function with a calculated ejection fraction of 71%. COPD - managed by PCP DM II - managed by PCP Obesity - with BMI approx 38.5 and obesity-hypoventilation and MONISHA Medication Allergies - (per pt report): Anaphylaxis for penicillin and phenergan - bronchospasm with sotalol and rozarem Opthamology - H/o bilateral cataract surgery and lens implants L-sided, dry, macular degen Mild hearing loss - unchanged Carotid dz - There appears to be considerable plaque and moderate stenosis of the R common carotid and mild to moderate stenosis of the R internal carotid. Approximately 50% L internal carotid artery stenosis per u/s of Feb 23, 2020 - Carotid u/s of 07-03-21 shows approx 60-79% L ICA and approx 50% R ICA stenosis Chronic, intermittent leg discomfort - Segmentals pressure of Feb 23, 2020 showed no evidence of any signif blood flow impairment to the distal arterial circulation of the lower limbs. Prox atherosclerosis is suggested. - No c/o claudication Discussion and Recomendations UTI - management per medical services C-dif - management per medical services Uncontrolled HTN - restart home antihypertensive regimen and adjust as indicated Monitor lab - replace electrolytes as indicated PAF/flutter - continue OAC with Eliquis Further recs will be based on his hospital course We would like to thank Medical services for this consult MERCEDES VAZQUEZ MD FACP FAC CCDS Jan 15, 2022 14:42
[2022-01-15 15:42] VITALS: BP 145/74
[2022-01-15 19:45] VITALS: BP 157/68
[2022-01-15] MEDS: amLODIPine 5 MG (NORVASC) TAB PO SCH (20:36)
[2022-01-15] MEDS ORDERED: LATANOPROST 0.005% (XALATAN) OPHTH SOLN 2.5 ML OU SCH (21:00)
[2022-01-15] MEDS ORDERED: ASPIRIN E.C. 81 MG (ECOTRIN) TAB PO SCH (21:00)
[2022-01-15] MEDS ORDERED: NON-FORMULARY MEDICATION 1 EA EA (Fluticasone/Umeclidin/Vilanter (Trelegy Ellipta 100-62.5 INH SCH (21:00)
[2022-01-15] MEDS: RT--FLUTICASONE/SALMETEROL 232-14 (AIRDUO RespiCLICK) IH SCH (21:00)
[2022-01-15 23:29] VITALS: BP 151/71
[2022-01-16 04:00] VITALS: BP 151/78
[2022-01-16] MEDS: D5 NS W/KCL 20 MEQ/L 1,000 ML IV SCH (04:50)
[2022-01-16] MEDS: inSUlin ASPART (NovoLOG) 1 UNIT/0.01 ML (CHARGE PER UNIT) SC SCH (05:12)
[2022-01-16] MEDS: VANCOMYCIN 125 MG CAPSULE PO SCH (05:13)
[2022-01-16 05:39] LABS: BASOPHILS # (AUTO) 0.1 10^3/uL (0.0-0.1); BASOPHILS % (AUTO) 1 % (0-10); EOSINOPHILS # (AUTO) 0.3 10^3/uL (0.0-0.3); EOSINOPHILS % (AUTO) 4 % (0-10); HEMATOCRIT 33 % (40-54); HEMOGLOBIN 10.7 g/dL (13.3-17.7); LYMPHOCYTES # (AUTO) 1.5 10^3/uL (1.0-4.0); LYMPHOCYTES % (AUTO) 16 % (12-44); MEAN CORPUSCULAR HEMOGLOBIN 29 pg (25-34); MEAN CORPUSCULAR HGB CONC 32 g/dL (32-36); MEAN CORPUSCULAR VOLUME 89 fL (80-99); MEAN PLATELET VOLUME 11.2 fL (9.0-12.2); MONOCYTES # (AUTO) 0.6 10^3/uL (0.0-1.0); MONOCYTES % (AUTO) 6 % (0-12); NEUTROPHILS # (AUTO) 6.9 10^3/uL (1.8-7.8); NEUTROPHILS % (AUTO) 73 % (42-75); PLATELET COUNT 122 10^3/uL (130-400); WHITE BLOOD COUNT 9.4 10^3/uL (4.3-11.0)
[2022-01-16 06:08] LABS: ALBUMIN 2.7 GM/DL (3.2-4.5); BILIRUBIN,TOTAL 0.5 MG/DL (0.1-1.0); CALCIUM 8.3 MG/DL (8.5-10.1); CREATININE SERUM 0.89 MG/DL (0.60-1.30); POTASSIUM 4.2 MMOL/L (3.6-5.0); TOTAL PROTEIN 4.6 GM/DL (6.4-8.2)
--- NOTE | 2022-01-16 06:59 | Discharge Summary ---
Diagnosis/Chief Complaint Date of Admission Jan 14, 2022 at 05:25 Date of Discharge Discharge Date: Jan 16, 2022 Discharge Diagnosis Assessment: Pseudomonas UTI recurrent in nature C diff colitis Hypoglycemia Pacemaker AF HTN HLP Obesity Discharge Summary Discharge Physical Examination Allergies: Coded Allergies: Penicillins (Verified Allergy, Severe, Anaphylaxis, 01/15/22) promethazine (Verified Allergy, Severe, Anaphylaxis, 01/15/22) ramelteon (Verified Allergy, Unknown, Shortness of Breath, 02/27/20) "Severe bronchospasm" sotalol (Verified Allergy, Unknown, Shortness of Breath, 02/27/20) "Severe bronchospasm" Vitals & I&Os Vital Signs Date Time Temp Pulse Resp B/P (MAP) Pulse Ox O2 Delivery O2 Flow Rate FiO2 01/16/22 09:00 01/16/22 08:22 96 Room Air 0.00 01/16/22 08:17 36.5 67 18 General Appearance: Alert, Oriented X3, Cooperative Respiratory: Clear to Auscultation Cardiovascular: Regular Rate Psych/Mental Status: Mental Status NL Hospital Course Was the Problem List Reviewed?: Yes 2 Day Hospital Course: Patient is an 86 y/o M with history of STEMI, pacemaker placement, CAD, HTN, HLD, AFib, Type 2 DM who presented to the ER 2 days ago with CC of diarrhea and lower abdominal pain. At that time the patient was feeling weak and dizzy. He had a prior hospitalization on 12/08/21 for COVID-19. He had also previously had a confirmed recurrent Psuedomonas UTI and completed a course of IV Cipro and IV Vanc. He had another hospitalization on 12/30/21 for watery diarrhea when he tested positive for C. Diff infection. Patient finished oral vancomycin course on 01/11/22. Upon admission to 4th floor, patient was monitored and given supportive care. Vancomycin given for C. Diff infection and Meropenem given for Pseudomonas UTI. He was evaluated by PT/OT as he regained some of his strength. Today patient is up and eating breakfast in bed. He states he is doing much better and his diarrhea has improved. He will be admitted to inpatient rehab w here he will continue to receive treatment and work on getting stronger/more independent before being discharged home. Urology has also been consulted regarding his recurrent UTIs. INGR[facility] Labs (last 24 hrs) Laboratory Tests 01/14/22 01:04: Erythrocyte Sedimentation Rate 12, Sodium Level 142, Potassium Level 3.7, Chloride Level 110H, Carbon Dioxide Level 20L, Anion Gap 12, Blood Urea Nitrogen 19H, Creatinine 1.19, Estimat Glomerular Filtration Rate 60, BUN/Creatinine Ratio 16, Glucose Level 66L, Calcium Level 9.4, Corrected Calcium 9.8, Magnesium Level 2.3, Total Bilirubin 0.6, Aspartate Amino Transf (AST/SGOT) 23, Alanine Aminotransferase (ALT/SGPT) 22, Alkaline Phosphatase 75, Total Creatine Kinase 26L, Creatine Kinase MB 1.4, Myoglobin 77.0, C-Reactive Protein High Sensitivity 0.88H, Total Protein 5.9L, Albumin 3.5, Amylase Level 43, Lipase 23, Procalcitonin 0.08 01/14/22 01:10: Influenza Type A (RT-PCR) Not Detected, Influenza Type B (RT-PCR) Not Detected, SARS-CoV-2 RNA (RT-PCR) Not Detected 01/14/22 01:47: White Blood Count 17.6H, Red Blood Count 4.01L, Hemoglobin 11.6L, Hematocrit 36L , Mean Corpuscular Volume 90, Mean Corpuscular Hemoglobin 29, Mean Corpuscular Hemoglobin Concent 32, Red Cell Distribution Width 14.9H, Platelet Count 120L, Mean Platelet Volume 11.4, Immature Granulocyte % (Auto) 1, Neutrophils (%) (Auto) 81H, Lymphocytes (%) (Auto) 12, Monocytes (%) (Auto) 5, Eosinophils (%) (Auto) 1, Basophils (%) (Auto) 0, Neutrophils # (Auto) 14.2H, Lymphocytes # (Auto) 2.1, Monocytes # (Auto) 0.9, Eosinophils # (Auto) 0.3, Basophils # (Auto) 0.1, Immature Granulocyte # (Auto) 0.1, Neutrophils % (Manual) 81, Lymphocytes % (Manual) 15, Monocytes % (Manual) 3, Eosinophils % (Manual) 1, Percent Immature Platelet Fraction 4.6, Blood Morphology Comment NORMAL 01/14/22 03:40: Lactic Acid Level 1.13 01/14/22 04:56: Urine Color YELLOW, Urine Clarity CLEAR, Urine pH 5.0, Urine Specific [place] 1.020, Urine Protein NEGATIVE, Urine Glucose (UA) 2+H, Urine Ketones NEGATIVE, Urine Nitrite POSITIVEH, Urine Bilirubin NEGATIVE, Urine Urobilinogen 0.2, Urine Leukocyte Esterase TRACEH, Urine RBC (Auto) TRACE-IH, Urine RBC 5-10H, Urine WBC 25-50H, Urine Squamous Epithelial Cells 0-2, Urine Crystals PRESENTH, Urine Calc ium Oxalate Crystals FEWH, Urine Bacteria FEWH, Urine Casts NONE, Urine Mucus NEGATIVE, Urine Culture Indicated YES 01/14/22 06:51: Glucometer 44*L 01/14/22 08:24: Glucometer 108 01/14/22 11:24: Glucometer 78 01/14/22 15:27: Glucometer 60*L 01/14/22 20:25: Glucometer 58*L 01/14/22 21:17: Glucometer 98 01/15/22 05:30: White Blood Count 13.8H, Red Blood Count 3.73L, Hemoglobin 10.6L, Hematocrit 33L , Mean Corpuscular Volume 89, Mean Corpuscular Hemoglobin 28, Mean Corpuscular Hemoglobin Concent 32, Red Cell Distribution Width 14.8H, Platelet Count 105L, Mean Platelet Volume 11.3, Immature Granulocyte % (Auto) 1, Neutrophils (%) (Auto) 81H, Lymphocytes (%) (Auto) 11L, Monocytes (%) (Auto) 6, Eosinophils (%) (Auto) 2, Basophils (%) (Auto) 0, Neutrophils # (Auto) 11.1H, Lymphocytes # (Auto) 1.5, Monocytes # (Auto) 0.8, Eosinophils # (Auto) 0.3, Basophils # (Auto) 0.1, Immature Granulocyte # (Auto) 0.1, Percent Immature Platelet Fraction 5.1, Sodium Level 141, Potassium Level 4.0, Chloride Level 111H, Carbon Dioxide Level 19L, Anion Gap 11, Blood Urea Nitrogen 11, Creatinine 0.84, Estimat Glomerular Filtration Rate 86, BUN/Creatinine Ratio 13, Glucose Level 57*L, Calcium Level 8.3L, Corrected Calcium 9.3, Total Bilirubin 0.8, Aspartate Amino Transf (AST/SGOT) 25, Alanine Aminotransferase (ALT/SGPT) 15, Alkaline Phosphatase 63, Total Protein 5.0L, Albumin 2.7L 01/15/22 06:42: Glucometer 113H 01/15/22 10:31: Glucometer 135H 01/15/22 15:50: Glucometer 161H 01/15/22 19:47: Glucometer 182H 01/16/22 05:12: Glucometer 96 01/16/22 05:27: White Blood Count 9.4, Red Blood Count 3.74L, Hemoglobin 10.7L, Hematocrit 33L, Mean Corpuscular Volume 89, Mean Corpuscular Hemoglobin 29, Mean Corpuscular Hemoglobin Concent 32, Red Cell Distribution Width 14.8H, Platelet Count 122L, Mean Platelet Volume 11.2, Immature Granulocyte % (Auto) 1, Neutrophils (%) (Auto) 73, Lymphocytes (%) (Auto) 16, Monocytes (%) (Auto) 6, Eosinophils (%) (Auto) 4, Basophils (%) (Auto) 1, Neutrophils # (Auto) 6.9, Lymphocytes # (Auto) 1.5, Monocytes # (Auto) 0.6, Eosinophils # (Auto) 0.3, Basophils # (Auto) 0.1, Immature Granulocyte # (Auto) 0.1, Sodium Level 144, Potassium Level 4.2, Chloride Level 114H, Carbon Dioxide Level 20L, Anion Gap 10, Blood Urea Nitrogen 10, Creatinine 0.89, Estimat Glomerular Filtration Rate 85, BUN/Creatinine Ratio 11, Glucose Level 91, Calcium Level 8.3L, Corrected Calcium 9.3, Total Bilirubin 0.5, Aspartate Amino Transf (AST/SGOT) 14, Alanine Aminotransferase (ALT/SGPT) 15, Alkaline Phosphatase 68, Total Protein 4.6L, Albumin 2.7L Microbiology 01/14/22 Urine Culture - Final, Complete Pseudomonas aeruginosa 01/14/22 C. difficile DNA Amplification - Final, Complete 01/14/22 Stool Culture - Final, Complete Pending Labs Microbiology Date/Time Source Procedure Growth Status 01/14/22 04:56 Urine Clean Catch Urine Culture - Final Pseudomonas aeruginosa Complete 01/14/22 02:30 Stool C. difficile DNA Amplification - Final Complete 01/14/22 02:30 Stool Stool Culture - Final Complete 01/14/22 02:30 Stool C. difficile GDH Antigen & Toxins - Final Complete Laboratory Tests 01/14/22 01:04: Erythrocyte Sedimentation Rate 12, Sodium Level 142, Potassium Level 3.7, Chloride Level 110, Carbon Dioxide Level 20, Anion Gap 12, Blood Urea Nitrogen 19, Creatinine 1.19, Estimat Glomerular Filtration Rate 60, BUN/Creatinine Ratio 16, Glucose Level 66, Calcium Level 9.4, Corrected Calcium 9.8, Magnesium Level 2.3, Total Bilirubin 0.6, Aspartate Amino Transf (AST/SGOT) 23, Alanine Aminotransferase (ALT/SGPT) 22, Alkaline Phosphatase 75, Total Creatine Kinase 26, Creatine Kinase MB 1.4, Myoglobin 77.0, C-Reactive Protein High Sensitivity 0.88, Total Protein 5.9, Albumin 3.5, Amylase Level 43, Lipase 23, Procalcitonin 0.08 01/14/22 01:10: Influenza Type A (RT-PCR) Not Detected, Influenza Type B (RT-PCR) Not Detected, SARS-CoV-2 RNA (RT-PCR) Not Detected 01/14/22 01:47: White Blood Count 17.6, Red Blood Count 4.01, Hemoglobin 11.6, Hematocrit 36, Mean Corpuscular Volume 90, Mean Corpuscular Hemoglobin 29, Mean Corpuscular Hemoglobin Concent 32, Red Cell Distribution Width 14.9, Platelet Count 120, Mean Platelet Volume 11.4, Immature Granulocyte % (Auto) 1, Neutrophils (%) (Auto) 81, Lymphocytes (%) (Auto) 12, Monocytes (%) (Auto) 5, Eosinophils (%) (Auto) 1, Basophils (%) (Auto) 0, Neutrophils # (Auto) 14.2, Lymphocytes # (Auto) 2.1, Monocytes # (Auto) 0.9, Eosinophils # (Auto) 0.3, Basophils # (Auto) 0.1, Immature Granulocyte # (Auto) 0.1, Neutrophils % (Manual) 81, Lymphocytes % (Manual) 15, Monocytes % (Manual) 3, Eosinophils % (Manual) 1, Percent Immature Platelet Fraction 4.6, Blood Morphology Comment NORMAL 01/14/22 03:40: Lactic Acid Level 1.13 01/14/22 04:56: Urine Color YELLOW, Urine Clarity CLEAR, Urine pH 5.0, Urine Specific [place] 1.020, Urine Protein NEGATIVE, Urine Glucose (UA) 2+, Urine Ketones NEGATIVE, Urine Nitrite POSITIVE, Urine Bilirubin NEGATIVE, Urine Urobilinogen 0.2, Urine Leukocyte Esterase TRACE, Urine RBC (Auto) TRACE-I, Urine RBC 5-10, Urine WBC 25-50, Urine Squamous Epithelial Cells 0-2, Urine Crystals PRESENT, Urine Calcium Oxalate Crystals FEW, Urine Bacteria FEW, Urine Casts NONE, Urine Mucus NEGATIVE, Urine Culture Indicated YES 01/14/22 06:51: Glucometer 44 01/14/22 08:24: Glucometer 108 01/14/22 11:24: Glucometer 78 01/14/22 15:27: Glucometer 60 01/14/22 20:25: Glucometer 58 01/14/22 21:17: Glucometer 98 01/15/22 05:30: White Blood Count 13.8, Red Blood Count 3.73, Hemoglobin 10.6, Hematocrit 33, Mean Corpuscular Volume 89, Mean Corpuscular Hemoglobin 28, Mean Corpuscular Hemoglobin Concent 32, Red Cell Distribution Width 14.8, Platelet Count 105, Mean Platelet Volume 11.3, Immature Granulocyte % (Auto) 1, Neutrophils (%) (Auto) 81, Lymphocytes (%) (Auto) 11, Monocytes (%) (Auto) 6, Eosinophils (%) (Auto) 2, Basophils (%) (Auto) 0, Neutrophils # (Auto) 11.1, Lymphocytes # (Auto) 1.5, Monocytes # (Auto) 0.8, Eosinophils # (Auto) 0.3, Basophils # (Auto) 0.1, Immature Granulocyte # (Auto) 0.1, Percent Immature Platelet Fraction 5.1, Sodium Level 141, Potassium Level 4.0, Chloride Level 111, Carbon Dioxide Level 19, Anion Gap 11, Blood Urea Nitrogen 11, Creatinine 0.84, Estimat Glomerular Filtration Rate 86, BUN/Creatinine Ratio 13, Glucose Level 57, Calcium Level 8.3, Corrected Calcium 9.3, Total Bilirubin 0.8, Aspartate Amino Transf (AST/SGOT) 25, Alanine Aminotransferase (ALT/SGPT) 15, Alkaline Phosphatase 63, Total Protein 5.0, Albumin 2.7 01/15/22 06:42: Glucometer 113 01/15/22 10:31: Glucometer 135 01/15/22 15:50: Glucometer 161 01/15/22 19:47: Glucometer 182 01/16/22 05:12: Glucometer 96 01/16/22 05:27: White Blood Count 9.4, Red Blood Count 3.74, Hemoglobin 10.7, Hematocrit 33, Mean Corpuscular Volume 89, Mean Corpuscular Hemoglobin 29, Mean Corpuscular Hemoglobin Concent 32, Red Cell Distribution Width 14.8, Platelet Count 122, Mean Platelet Volume 11.2, Immature Granulocyte % (Auto) 1, Neutrophils (%) (Auto) 73, Lymphocytes (%) (Auto) 16, Monocytes (%) (Auto) 6, Eosinophils (%) (Auto) 4, Basophils (%) (Auto) 1, Neutrophils # (Auto) 6.9, Lymphocytes # (Auto) 1.5, Monocytes # (Auto) 0.6, Eosinophils # (Auto) 0.3, Basophils # (Auto) 0.1, Immature Granulocyte # (Auto) 0.1, Sodium Level 144, Potassium Level 4.2, Chloride Level 114, Carbon Dioxide Level 20, Anion Gap 10, Blood Urea Nitrogen 10, Creatinine 0.89, Estimat Glomerular Filtration Rate 85, BUN/Creatinine Ratio 11, Glucose Level 91, Calcium Level 8.3, Corrected Calcium 9.3, Total Bilirubin 0.5, Aspartate Amino Transf (AST/SGOT) 14, Alanine Aminotransferase (ALT/SGPT) 15, Alkaline Phosphatase 68, Total Protein 4.6, Albumin 2.7 Discharge Home Medications: Active Scripts Active Reported Gvoke Hypopen (Glucagon) 0.5 Mg/0.1 Ml Auto.injct 0.5 Mg SQ UD PRN Potassium Chloride 8 Meq Capsule.er 16 Meq PO DAILY TAKES 2 (8MEQ) TABS Sertraline HCl 50 Mg Tablet 75 Mg PO DAILY TAKES 1 AND 1/2 OF (50MG) TAB Latanoprost 0.005% Eye Drop (Latanoprost/Pf) 0.005 % Drops 1 Drop OU HS Flomax (Tamsulosin HCl) 0.4 Mg Cap 0.4 Mg PO BID Ozempic (Semaglutide) 1 Mg/0.75 Ml (4 Mg/3 Ml) Pen.injctr 0.5 Mg SQ FRIDAY Tresiba Flextouch U-200 (Insulin Degludec) 200 Unit/Ml (3 Ml) Insuln.pen 134 Uni ts SQ DAILY Jardiance (Empagliflozin) 25 Mg Tablet 25 Mg PO DAILY Furosemide 20 Mg Tablet 20 Mg PO DAILY Aspirin EC (Aspirin) 81 Mg Tablet.dr 162 Mg PO HS TAKES 2 (81MG) TABS Ventolin Hfa (Albuterol Sulfate) 18 Gm Hfa.aer.ad 2 Puff INH Q4H PRN Nitroglycerin 0.4 Mg Tab.subl 0.4 Mg SL UD PRN Calcium 600 + Vit D3 400 Tab (Calcium Carbonate/Vitamin D3) 1 Each Tablet 1 Each PO DAILY Metoprolol Tartrate 50 Mg Tablet 50 Mg PO BID Atorvastatin Calcium 20 Mg Tablet 20 Mg PO HS Losartan Potassium 25 Mg Tablet 12.5 Mg PO DAILY TAKES 1/2 OF (25MG) TAB Eliquis (Apixaban) 5 Mg Tablet 5 Mg PO BID Trelegy Ellipta 100-62.5-25 (Fluticasone/Umeclidin/Vilanter) 1 Each Blst.w.dev 1 Puff INH HS Instructions to patient/family Please see electronic discharge instructions given to patient. EDEN FORDE DO Jan 16, 2022 06:59
[2022-01-16] MEDS ORDERED: MEROPENEM 2,000 MG in NS (IVPB) 100 ML IV SCH (07:00)
[2022-01-16] MEDS ORDERED: UMECLIDINIUM BROMIDE (INCRUSE ELLIPTA) 7'S IH SCH (08:00)
[2022-01-16] MEDS: RT--FLUTICASONE/SALMETEROL 232-14 (AIRDUO RespiCLICK) IH SCH (08:13)
[2022-01-16 08:17] VITALS: BP 154/64
[2022-01-16] MEDS: KCL 8 MEQ (MICRO K) TABLET PO SCH (08:47)
[2022-01-16] MEDS: SERTRALINE 50 MG (ZOLOFT) TABLET PO SCH (08:47)
[2022-01-16] MEDS: APIXABAN 5 MG (ELIQUIS) TABLET PO SCH (08:47)
[2022-01-16] MEDS: amLODIPine 5 MG (NORVASC) TAB PO SCH (08:47)
[2022-01-16] MEDS: LOSARTAN 25 MG (COZAAR) TAB PO SCH (08:48)
[2022-01-16] MEDS: CALCIUM CARB + VIT D 600 MG (CALCARB + D) TAB PO SCH (08:48)
[2022-01-16] MEDS: EMPAGLIFLOZIN 10 MG TABLET (JARDIANCE) PO SCH (08:48)
[2022-01-16] MEDS: TAMSULOSIN 0.4 MG (FLOMAX) CAP PO SCH (08:48)
[2022-01-16] MEDS: meTOprolol TARTRATE 50 MG (LOPRESSOR) TAB PO SCH (08:48)
--- NOTE | 2022-01-16 09:33 | Progress Note - Cardiology ---
Cardiology SOAP Progress Note Subjective: No cp or palp or syncope No shortness of breath at rest No n/v Diarrhea improved Gen weakness and malaise present Objective: I&O/Vital Signs 01/15/22 01/16/22 01/16/22 01/16/22 23:29 01:00 04:00 07:00 Temp 36.4 36.5 Pulse 70 70 70 Resp 18 18 B/P (MAP) 151/71 (97) 151/78 (102) Pulse Ox 96 97 O2 Delivery Room Air Room Air 01/16/22 01/16/22 01/16/22 08:17 08:20 08:22 Temp 36.5 Pulse 67 Resp 18 B/P (MAP) 154/64 (94) Pulse Ox 96 96 96 O2 Delivery Room Air Room Air Room Air O2 Flow Rate 0.00 0.00 01/15/22 23:59 Intake Total 2380 ml Output Total 1850 ml Balance 530 ml Constitutional: AAO x 3, well-developed, well-nourished Respiratory: No accessory muscle use, No respiratory distress; chest expansion is symmetric, chest is bilaterally symmetric, lungs clear to auscultation Cardiovascular: regular rate-rhythm; No JVD; S1 and S2 Gastrointestional: No tender; soft, round, audible bowel sounds Extremities: no lower extremity edema bilateral Neurologic/Psychiatric: grossly intact (moves all extremities) Skin: No rash on exposed areas, No ulcerations on exposed areas Results/Procedures: Labs Laboratory Tests 01/15/22 10:31: Glucometer 135H 01/15/22 15:50: Glucometer 161H 01/15/22 19:47: Glucometer 182H 01/16/22 05:12: Glucometer 96 01/16/22 05:27: White Blood Count 9.4, Red Blood Count 3.74L, Hemoglobin 10.7L, Hematocrit 33L, Mean Corpuscular Volume 89, Mean Corpuscular Hemoglobin 29, Mean Corpuscular Hemoglobin Concent 32, Red Cell Distribution Width 14.8H, Platelet Count 122L, Mean Platelet Volume 11.2, Immature Granulocyte % (Auto) 1, Neutrophils (%) (Auto) 73, Lymphocytes (%) (Auto) 16, Monocytes (%) (Auto) 6, Eosinophils (%) (Auto) 4, Basophils (%) (Auto) 1, Neutrophils # (Auto) 6.9, Lymphocytes # (Auto) 1.5, Monocytes # (Auto) 0.6, Eosinophils # (Auto) 0.3, Basophils # (Auto) 0.1, Immature Granulocyte # (Auto) 0.1, Sodium Level 144, Potassium Level 4.2, Chloride Level 114H, Carbon Dioxide Level 20L, Anion Gap 10, Blood Urea Nitrogen 10, Creatinine 0.89, Estimat Glomerular Filtration Rate 85, BUN/Creatinine Ratio 11, Glucose Level 91, Calcium Level 8.3L, Corrected Calcium 9.3, Total Bilirubin 0.5, Aspartate Amino Transf (AST/SGOT) 14, Alanine Aminotransferase (ALT/SGPT) 15, Alkaline Phosphatase 68, Total Protein 4.6L, Albumin 2.7L Microbiology 01/14/22 Urine Culture - Preliminary, Resulted Pseudomonas aeruginosa 01/14/22 C. difficile DNA Amplification - Final, Resulted 01/14/22 Stool Culture - Preliminary, Resulted Laboratory Tests 01/15/22 05:30 01/16/22 05:27 A/P: Assessment: UTI - pseudomonas - management per medical services C-diff - management per medical services Poor balance of undetermined etiology - unchanged - has an appt to see neurology in [place], [place] Shortness of breath with exertion - chronic and unchanged - Echocardiogram of 06-08-20. LVEF 60-65%. Grade 2 diastolic dysfunction. Mild MR. Mild to mod TR. PASP 50-55mmHg H/o dual ch perm pacemaker ([employer] / [employer]) - implanted for symptomatic bradycardia in Nov [address] Brooks in [place], [place]. - gen change in late August 2020 - device functioning normally per interrogation of 11-07-21 S/p TAVR - ([employer] Model [id number], Sr no [id number]) on 12/24/19 at [place], [place] H/o SVT and A Fib/Fl - stated to have been treated with ablation in October 2016 at [facility] in [place], [place] - chronic apixaban anticoagulation CAD - H/o cor stents in Mar [address] [facility]. - MPI of 01-16-21 No evidence of any significant myocardial ischemia or infarctio n on this study. Normal regional wall motion. Normal global left ventricular systolic function with a calculated ejection fraction of 71%. COPD - managed by PCP DM II - managed by PCP Obesity - with BMI approx 38.5 and obesity-hypoventilation and MONISHA Medication Allergies - (per pt report): Anaphylaxis for penicillin and phenergan - bronchospasm with sotalol and rozarem Opthamology - H/o bilateral cataract surgery and lens implants L-sided, dry, macular degen Mild hearing loss - unchanged Carotid dz - There appears to be considerable plaque and moderate stenosis of the R common carotid and mild to moderate stenosis of the R internal carotid. Approximately 50% L internal carotid artery stenosis per u/s of Feb 23, 2020 - Carotid u/s of 07-03-21 shows approx 60-79% L ICA and approx 50% R ICA stenosis Chronic, intermittent leg discomfort - Segmentals pressure of Feb 23, 2020 showed no evidence of any signif blood flow impairment to the distal arterial circulation of the lower limbs. Prox atherosclerosis is suggested. - No c/o claudication Plan: * Continue stroke prophylaxis with OAC * D/c tele * Monitor labs MERCEDES VAZQUEZ MD FACP FAC CCDS Jan 16, 2022 09:32
--- NOTE | 2022-01-16 10:51 | Progress Note ---
INGRID NASH 01/16/22 1051: Progress Note 2 Day Hospital Course: Patient is an 86 y/o M with history of STEMI, pacemaker placement, CAD, HTN, HLD, AFib, Type 2 DM who presented to the ER 2 days ago with CC of diarrhea and lower abdominal pain. At that time the patient was feeling weak and dizzy. He had a prior hospitalization on 12/08/21 for COVID-19. He had also previously had a confirmed recurrent Psuedomonas UTI and completed a course of IV Cipro and IV Vanc. He had another hospitalization on 12/30/21 for watery diarrhea when he tested positive for C. Diff infection. Patient finished oral vancomycin course on 01/11/22. Upon admission to 4th floor, patient was monitored and given supportive care. Vancomycin given for C. Diff infection and Meropenem given for Pseudomonas UTI. He was evaluated by PT/OT as he regained some of his strength. Today patient is up and eating breakfast in bed. He states he is doing much better and his diarrhea has improved. He will be admitted to inpatient rehab where he will continue to receive treatment and work on getting stronger/more independent before being discharged home. Urology has also been consulted regarding his recurrent UTIs. RADHA FORDE DO 01/16/222052: Supervisory-Addendum Brief Verification & Attestation Participated in pt care: history, MDM, physical Personally performed: exam, history, MDM, supervision of care Care discussed with: Medical Student Procedures: n/a Results interpretation: Verified all documentation Verification and Attestation of Medical Student E/M Service A medical student performed and documented this service in my presence. I reviewed and verified all information documented by the medical student and made modifications to such information, when appropriate. I personally performed the physical exam and medical decision making. Radha Forde Jan 16, 2022,20:53 INGRID NASH Jan 16, 2022 10:51 RADHA FORDE DO Jan 16, 2022 20:53
== END 2022-01-16 09:30 | DRG 372 ==
LOC: EDUNIT# 00:57 → ER 00:58 → EDLOC 05:25 → 4TH 05:25
PROVIDERS: ADMIT Internal Medicine; ATTEND Internal Medicine
DX: A04.72 Enterocolitis due to Clostridium difficile, not specified as recurrent (principal); N39.0 Urinary tract infection, site not specified; E86.0 Dehydration; E11.649 Type 2 diabetes mellitus with hypoglycemia without coma; I10 Essential (primary) hypertension; I48.0 Paroxysmal atrial fibrillation; I25.10 Atherosclerotic heart disease of native coronary artery without angina pectoris; E66.9 Obesity, unspecified; Z20.822 Contact with and (suspected) exposure to COVID-19; J84.10 Pulmonary fibrosis, unspecified; J44.9 Chronic obstructive pulmonary disease, unspecified; G47.30 Sleep apnea, unspecified; I65.23 Occlusion and stenosis of bilateral carotid arteries; H35.30 Unspecified macular degeneration; H40.9 Unspecified glaucoma; H91.90 Unspecified hearing loss, unspecified ear; E78.00 Pure hypercholesterolemia, unspecified; I25.2 Old myocardial infarction; B96.5 Pseudomonas (aeruginosa) (mallei) (pseudomallei) as the cause of diseases classified elsewhere; Z68.33 Body mass index [BMI] 33.0-33.9, adult; Z79.4 Long term (current) use of insulin; Z79.84 Long term (current) use of oral hypoglycemic drugs; Z79.899 Other long term (current) drug therapy; Z86.16 Personal history of COVID-19; Z95.5 Presence of coronary angioplasty implant and graft; Z95.0 Presence of cardiac pacemaker; Z79.01 Long term (current) use of anticoagulants; Z95.2 Presence of prosthetic heart valve; Z79.82 Long term (current) use of aspirin; Z88.0 Allergy status to penicillin; Z88.8 Allergy status to other drugs, medicaments and biological substances
CPT/HCPCS: 36410; 36415; 71045; 74177; 76937; 80053; 81000; 82150; 82550; 82553; 82947; 83605; 83690; 83735; 83874; 84145; 85007; 85025; 85027; 85652; 86141; 87015; 87045; 87046; 87077; 87088; 87186; 87324; 87449; 87493; 87636; 87899; 93005; 93041; 94640; 94760

== ENCOUNTER 2022-01-16 10:20 | Inpatient (IN) | payer MEDICARE, MEDICAID ==
[~2022-01-16] VITALS: Ht 185.5 cm; Wt 115.9 kg
--- NOTE | 2022-01-16 09:59 | Occupational Therapy Eval ---
OT Evaluation-General/PLF Medical Diagnosis Admission Date Jan 16, 2022 Medical Diagnosis: Debility/Weakness Onset Date: Jan 16, 2022 Therapy Diagnosis Therapy Diagnosis: weakness Referral Physician: Lanre Referral Reason: Evaluation/Treatment Medical History Pertinent Medical History: Atrial Fib, CAD, COPD, DM, HTN, Neuropathy Additional Medical History STEMI, pacemaker, CAD, HTN, afib, DM, asthma, COPD, irregular heartbeat, neuropathy. Current History ED c/o diarrhea and lower abdominal pain. 2 recent hospitalizations - 12/08/21 with COVID & 12/30/21 with C-diff. Transfer to ARU 01/16/22 Social History Home: Single Level (trailer) Current Living Status: Spouse Entry Into Home: Ramp ADL-Prior Level of Function SCALE: Activities may be completed with or without assistive devices. 3-Xjhbvdvufp-hwqctxe completes the activity by him/herself with no assistance from a helper. 5-Set-up or Clean-up Assistance-helper sets up or cleans up; patient completes activity. [place] assists only prior to or following the activity. 4-Supervision or Touching Assistance-helper provides verbal cues and/or touching/steadying and/or contact guard assistance as patient completes activity. Assistance may be provided throughout the activity or intermittently. 3-Partial/Moderate Assistance-helper does LESS THAN HALF the effort. [place] lifts, holds or supports trunk or limbs, but provides less than half the effort. 2-Substantial/Maximal Assistance-helper does MORE THAN HALF the effort. [place] lifts or holds trunk or limbs and provides more than half the effort. 0-Nnqcglonr-xsdlal does ALL the effort. Patient does none of the effort to complete the activity. Or, the assistance of 2 or more helpers is required for the patient to complete the activity. If activity was not attempted, code reason: 7-Patient Refused. 9-Not Applicable-not attempted and the patient did not perform the activity before the current illness, exacerbation or injury. 10-Not Attempted due to Environmental Limitations-(lack of equipment, weather restraints, etc.). 88-Not Attempted due to Medical Conditions or Safety Concerns. ADL PLOF Comments Per pt report: Pt reports living with spouse who provides assistance with ADLs and mobility. Pt states his assists him with LBD and footwear, he is typically able to toilet himself, but his assists if needed. He showers himself, but isn't super thorough with washing BLEs lower legs/feet, would require assistance for thoroughness. He has a walk in shower with SC. Per report: They live in a trailer with a small shower, pt is unable to get in/out of the shower due to layout of the doorways, so he completes sponge baths instead. This shower is unable to accommodate a SC. Pt's helps with orientation of his shirt, provides VCs for LE dressing, and pt is able to complete footwear when he wants to, but most of the time pt's assists with this as well. Self Care: Needed Some Help DME/Equipment: Bath Chair OT Current Status Subjective Pt in w/c, agreeable to OT evaluation/tx. Mental Status/Objective Patient Orientation: Person, Place, Situation Acute Mental Status Change: 0 Inattention: 0 Disorganized thinkin Altered level of consciousness: 0 Current Glasses/Contacts: Yes Hearing Aids: No Dentures/Partials: Yes Hand Dominance: Left Upper Extremity ROM WFL, BUE shoulder flexion to approx 150 Upper Extremity Coordination WFL Upper Extremity Sensation WFL Upper Extremity Strength grossly 4+/5 ADL-Treatment Eating (QC): 7 Oral Hygiene (QC): 7 Shower/Bathe Self (QC): 7 Upper Body Dressing (QC): 7 Lower Body Dressing (QC): 7 On/Off Footwear (QC): 7 Toileting Hygiene (QC): 7 Other Treatments OT evaluation complete (pt and pt's provided information about PLOF and home set up), then OT/PT cotreat due to skill of 2 clinicians required which a automotive specialty technician could not perform in order to coordinate UE/LEs, decrease fall risk, and due to pt's limitations in strength, mobility, transfers. OT focused on UE placement, cues for sequencing and safety, PT focused on LE placement, gross overall movement, and transfers/mobility. Pt completed w/c mobility around [facility] common area and into therapy gym. Post tx, pt left with PT, all needs met. PEDROZA to resume OT tx shortly. Education OT Patient Education: Correct positioning, Energy conservation, Modified ADL techniques, Progress toward Goal/Update tx plan, Purpose of tx/functional activities, Rehab process Teaching Recipient: Patient Teaching Methods: Discussion Response to Teaching: Verbalize Understanding OT [facility] Goals [facility] Goals Time Frame: Feb 08, 2022 Acute change in mental status: 0 Inattention: 0 Disorganized thinkin Altered level of consciousness: 0 Eating (QC): 6 Oral Hygiene (QC): 10 Toileting Hygiene (QC): 6 Shower/Bathe Self (QC): 6 Upper Body Dressing (QC): 5 Lower Body Dressing (QC): 5 On/Off Footwear (QC): 5 Additional Goals: 1-Demonstrate ADL Tasks, 2-Verbalize Understanding, 3- ImproveStrength/Rani 1=Demonstrate adherence to instructed precautions during ADL tasks. 2=Patient will verbalize/demonstrate understanding of assistive devices/modifications for ADL. 3=Patient will improve strength/tolerance for activity to enable patient to perform ADL's. OT Education/Plan Problem List/Assessment Assessment: Decreased Activ Tolerance, Decreased UE Strength, Impaired Funct Balance, Impaired I ADL's, Impaired Self-Care Skills Pt is currently at his PLOF with ADLs, but per physician orders and rehab process, OT will see pt for continued UE strengthening, activity tolerance, and increasing level of independence with ADLs and functional mobility. Discharge Recommendations Plan/Recommendations: Continue POC Treatment Plan/Plan of Care Patient would benefit from OT for education, treatment and training to promote independence in ADL's, mobility, safety and/or upper extremity function for ADL's. Plan of Care: ADL Retraining, Functional Mobility, Group Exercise/Act as Ind, UE Funct Exercise/Act Treatment Duration: Feb 08, 2022 Frequency: At least 5 of 7 days/Wk (IRF) Estimated Hrs Per Day: 1.5 hours per day Agreement: Yes Rehab Potential: Fair Time/GCodes Start Time: 09:45 Stop Time: 10:00 Total Time Billed (hr/min): 15 Billed Treatment Time OT peggy x10', gavino x5 1, MARLEY LOVE OT Jan 16, 2022 09:59
[2022-01-16 10:15] VITALS: BP 107/56
[~2022-01-16 10:20] MED LIST changes: +GLUC0.5A SQ; +POTA8CAP20 PO
--- NOTE | 2022-01-16 10:43 | ST Cognitive Linguistic Eval ---
Speech Evaluation-General Medical Diagnosis Debility/Weakness Onset Date: Jan 16, 2022 Therapy Diagnosis Therapy Diagnosis: Impaired Neurocognitive Skills (Reported Baseline) Precautions Precautions: Fall Precautions/Isolations: Fall Prevention, Contact/Enteric Isolation Referral Referring Physician: Dr. De Dios Reason for Referral: Evaluation/Treatment Medical History Pertinent Medical History: Atrial Fib, CAD, COPD, DM, HTN, Neuropathy Current History The patient is an 86 year-old male with a past medical history of atrial fibrillation, CAD, COPD, DM, HTN, and neuropathy, who presents to ARU with weakness and debility following COVID and C-Diff. Reviewed History: Yes Social History Current Living Status: Spouse Speech PLF-Current Status Prior Level of Function The patient denied any recent changes or concerns regarding his cognitive, speech, or language function. The patient stated, "No, this is just me!" Subjective The patient was seated upright in his recliner, awake and alert upon entrance to the room by the clinician. The patient greeted the clinician appropriately and was agreeable to participation in the cognitive linguistic assessment. The patient's was in the room for the beginning portions of the evaluation. Language Eval: Auditory Comprehends Simple Yes/No Ques: Functional Indent/Objects Multiple Arellano: Functional Ident/Pics in Multiple Arellano: Functional Follows 1-Step Commands: Functional Follows General Conversations: Functional Language Eval: Verbal Language Completes Spontaneous Greeting: Functional Produces Auto, Serial Info: Functional Imitates Simple Words/Phrases: Functional Word Finding: Mild Requests Basic Needs: Functional States Basic Personal Info: Functional At times, the patient sarcasm can appear to display a reduced ability for full comprehension. Throughout the session, the clinician provided a polite reminder to the patient that she was attempting to receive baseline cognitive function data. The patient remained pleasant and humorous throughout. Cognitive Patient Orientation The patient was oriented to month, day of the week, year, and location independently. The patient does require verbal redirection, as he began speaking of the [facility] where he lived in the past. Objective Cognitive Domain Attention: Mild Memory: Mild Problem Solving: Mild Executive Functions: Mild Composite Severity Rating: Mild Objective Formal/Standardized Tests [facility] Mental Status Exam (UMS) Results The patient demonstrated a result of +19/30 correlating to a score of "dementia." Oral Motor/Speech Production The patient does not display dysarthria or apraxia of speech at this time. The patient is 100% intelligible in known and unknown contexts. Impression The patient does demonstrate mild cognitive impairments in the areas of memory and problem solving. The clinician completed a discussion regarding her recommendation for cognitive services throughout his stay on the rehabilitation floor. The patient stated (kindly), "This here is me!' Per patient, "It just makes more sense or adds up that I better spend my time with physical therapy. If I get stronger, I can get out of here." The clinician assured the patient he would continue to receive adequate physical therapy to meet his needs, however, the patient politely refuses skilled cognitive therapy at this time. The clinician will continue to monitor the patient's chart for progress or suspected difficulty with comprehension. If demonstrated, the clinician will provide a request a consult for cognitive re-evaluation. Speech Patient Assess Expression of Ideas/Wants: Expression (4) Understanding Verbal Content: Usually Understands (3) Brief Interview-Mental Status: Yes Repetition of Three Words: Three (3) Temporal Orientation: Year: Correct (3) Temporal Orientation: Month: Accurate within 5 days(2) Temporal Orientation: Day: Correct (1) Recall : Wear to say "Sock": Yes, no cue required (2) Recall : Color: Yes, after cueing (1) Recall : Bed: Yes,after cueing (1) Memory/Recall Ability: Current season, That he or she is in a hsp/hsp unit Speech-Plan Treatment Plan Speech Therapy Treatment Plan: Discontinue ST Treatment Duration: Jan 16, 2022 Frequency: 1 time per week Estimated Hrs Per Day: .5 hour per day Rehab Potential: Fair Safety Risks/Education Teaching Recipient: Patient Teaching Methods: Discussion Response to Teaching: Reinforcement Needed Education Topics Provided: Results, Recommendations, Plan of Care Time Speech Therapy Time In: 11:00 Speech Therapy Time Out: 11:30 Total Billed Time: 30 Billed Treatment Time 1, CORNELIUS [facility] Jan 16, 2022 10:43
--- NOTE | 2022-01-16 10:50 | Physical Therapy Evaluation ---
PT Evaluation-General Medical Diagnosis Admission Date Jan 16, 2022 at 10:20 Medical Diagnosis: Debility/Weakness Onset Date: Jan 16, 2022 Therapy Diagnosis Therapy Diagnosis: impaired mobility, strength, enduarance Referral Physician: Radha De Dios DO Reason for Referral: Evaluation/Treatment Medical History Pertinent Medical History: Atrial Fib, CAD, COPD, DM, HTN, Neuropathy History of Falls (past yr): Unknown Prior Surgery (last 100 days): Unknown Reviewed History: Yes Social History Home: Single Level Current Living Status: Spouse Entry Into Home: Ramp Prior Prior Level of Function SCALE: Activities may be completed with or without assistive devices. 2-Syqdifnceg-ikvyxhi completes the activity by him/herself with no assistance from a helper. 5-Set-up or Clean-up Assistance-helper sets up or cleans up; patient completes activity. [place] assists only prior to or following the activity. 4-Supervision or Touching Assistance-helper provides verbal cues and/or touching/steadying and/or contact guard assistance as patient completes activity. Assistance may be provided throughout the activity or intermittently. 3-Partial/Moderate Assistance-helper does LESS THAN HALF the effort. [place] lifts, holds or supports trunk or limbs, but provides less than half the effort. 2-Substantial/Maximal Assistance-helper does MORE THAN HALF the effort. [place] lifts or holds trunk or limbs and provides more than half the effort. 5-Dzqvnpfol-hueeai does ALL the effort. Patient does none of the effort to complete the activity. Or, the assistance of 2 or more helpers is required for the patient to complete the activity. If activity was not attempted, code reason: 7-Patient Refused. 9-Not Applicable-not attempted and the patient did not perform the activity before the current illness, exacerbation or injury. 10-Not Attempted due to Environmental Limitations-(lack of equipment, weather restraints, etc.). 88-Not Attempted due to Medical Conditions or Safety Concerns. Bed Mobility: 6 Transfers (B,C,W/C): 6 Wheelchair Mobility: 6 Indoor Mobility (Ambulation): Needed Some Help Stairs: Not Applicalbe Prior Devices Use: Manual wheelchair, Motorized scooter, Walker PT Evaluation-Current Subjective Patient in bed pre tx, agrees to PT, has no complaints of pain at rest. Pain Section J - Health Conditions 1. Rarely or not at all 2. Occasionally 3. Frequently 4. Almost constantly 8. Unable to answer Pain Effect on Sleep: 1 Pain Interference with Therapy: 1 Pain Interference w/Day-to-Day: 1 Pt/Family Goals to be independent at home Objective Patient Orientation: Person, Place, Situation ROM/Strength ROM Lower Extremities WNL Strength Lower Extremities LLE (hip flexion 3-/5, knee flexion 4/5, knee extension 4/5, dorsiflexion 3+/5), RLE (hip flexion 3-/5, knee flexion 4/5, knee extension 4/5, dorsiflexion 3+/5) Sensory Vision: Functional Hearing: Functional Hand Dominance: Left Sensation Right Lower Extremit: Impaired Sensation Left Lower Extremity: Impaired Transfers Roll Left & Right (QC): 6 Sit to Lying (QC): 4 Lying to Sitting/Side of Bed(Q: 4 Sit to Stand (QC): 3 Chair/Jdj-ts-Xpngy Xfer(QC): 4 Toilet Transfer (QC): 4 Car Transfer (QC): 4 Patient performs rolling with independence, supine <-> sit SBA, sit <-> stand min assist, transfers and car transfer CGA, occasional cues for hand placement and positioning Gait Does the Patient Walk?: Yes Mode of Locomotion: Walk Anticipated Mode of Locomotion: Walk Walk 10 feet (QC): 4 Walk 50 ft with 2 Turns(QC): 88 Walk 150 ft (QC): 88 Walking 10ft/uneven surface-QC: 3 Distance: 30', 20'x2 Gait Assistive Device: FWW Comments/Gait Description Patient can ambulate 30' with a rolling walker with CGA (but needs min assist to ambulate 10' over an uneven surface). Gait is slow, slightly unsteady but no LOB, legs a little shaky, poor endurance Wheelchair Training Does the Pt Use a Wheelchair?: Yes Distance: 120'x2 Wheel 50 ft with 2 turns (QC): 4 Wheel 150 ft (QC): 88 Type of Wheelchair: Manual SBA Stairs 1 Step (curb) (QC): 88 4 Steps (QC): 88 12 Steps (QC): 88 LE strength not good enough at this time to do this safely Balance Sitting Static: Normal Sitting Dynamic: Normal Standing Static: Fair Standing Dynamic: Poor Picking up an Object (QC): 4 (CGA using a academic intern) Treatment Patient was also bathed and dressed and performed NuStep for 10 min at level 5. PT performed bed mobility and transfers, ambulation, WC mobility, LE strengthening, standing and positioning and safety during bathing and dressing, OT performed bathing, dressing, UE positioning and safety during activity. Assessment/Needs Patient in WC post tx to continue for a bit with OT. Patient has impaired mobility, strength, endurance. He needs min assist to stand and more assist f rom lower surfaces. Rehab Potential: Fair PT Short Term Goals Short Term Goals Time Frame: Jan 23, 2022 Roll Left & Right: 6 Sit to lyin Lying to sitting on side of be: 5 Sit to stand: 4 Chair/vtm-ax-sgnjx transfer: 4 Walk 10 feet: 4 PT [facility] Goals [facility] Goals PT Consumer Loan Manager Goals Time Frame: Feb 06, 2022 Scoring Section J - Health Conditions 1. Rarely or not at all 2. Occasionally 3. Frequently 4. Almost constantly 8. Unable to answer Roll Left to Right (QC): 6 Sit to Lying (QC): 6 Lying-Sitting on Side/Bed(QC): 6 Sit to Stand (QC): 5 Chair/Pcw-vj-Fqley Xfer(QC): 5 Car Transfer (QC): 5 Walk 10 feet (QC): 5 Walk 10ft-Uneven Surface(QC): 5 Walk 50ft with 2 Turns (QC): 5 Wheel 50 feet with 2 turns (QC: 6 # of Steps: 1 1 Step (curb) (QC): 3 Picking up an Object (QC): 5 PT Plan Problem List Problem List: Activity Tolerance, Functional Strength, Safety, Balance, Gait, Transfer, Bed Mobility, ROM Treatment/Plan Treatment Plan: Continue Plan of Care Treatment Plan: Bed Mobility, Education, Functional Activity Rani, Functional Strength, Group Therapy, Gait, Safety, Therapeutic Exercise, Transfers Treatment Duration: Feb 06, 2022 Frequency: At least 5 of 7 days/Wk (IRF) Estimated Hrs Per Day: 1.5 hours per day Patient and/or Family Agrees t: Yes Safety Risks/Education Patient Education: Gait Training, Transfer Techniques, Correct Positioning, W/C Management, Safety Issues Teaching Recipient: Patient Teaching Methods: Demonstration, Discussion Response to Teaching: Reinforcement Needed Discharge Recommendations Plan Patient will perform bed mobility and transfer training, balance and endurance training, functional strengthening, stair training, gait training, and education, to improve functional mobility and independence at home. Therapy Discharge Recommendati: Scheduled Assistance, Home & Family, Post Acute PT Time/GCodes Time In: 919 Time Out: 1044 Total Billed Treatment Time: 75 Total Billed Treatment 1 visit EVM 10' FA 65' PT eval from [id number], PT tx from [id number], OT eval from [id number], co-treat from [id number], PT tx from [id number], co-treat from [id number] KILLIAN VAUGHN PT Jan 16, 2022 10:50
--- NOTE | 2022-01-16 11:45 | Occupational Ther Daily Note ---
OT Current Status-Daily Note Subjective Pt alert, working with PT. Took over care from OTR/L. No c/o pain. present. Co-treat with PT ([id number]), skills of 2 clinicians required to decrease fall risk, increase functional mobility and activity tolerance. PT focusing on transfers and mobility while OT focusing on ADLs. Mental Status/Objective Patient Orientation: Person, Place, Time, Situation Attachments: IV, Other-See Comments (Dexacom-glucose monitor) Acute change in mental status: 0 Inattention: 0 Disorganized thinkin Altered level of consciousness: 0 ADL-Treatment 1st session: ([id number]) Pt agrees to shower. Pt transfers to shower bench from using grabbars, CGA. After set up pt completed shower by self, SBA. Pt transferred from shower bench to , CGA. After set up pt donned/doffed UB clothing by self. Pt CGA while standing in LB dressing. Pt refusal to complete oral care. Pt self propelled WC to recliner. Pt SPT to recliner, CGA. Pt able to don R sock by self, due to SOA PEDROZA donned L sock. Pt mod A in donning footwear. Pt left in recliner with call light/phone in reach. All needs met in room. 2nd session: ([id number]) Pt educated in AE to don socks. After skilled ins truction and demonstration pt able to don socks with AE. Pt stated he preferred that way because it was so much easier. Pt left in recliner call light/phone in reach. All needs met in room. Therapy Code Descriptions/Definitions Functional [place] Measure: 0=Not Assessed/NA 4=Minimal Assistance 1=Total Assistance 5=Supervision or Setup 2=Maximal Assistance 6=Modified [place] 3=Moderate Assistance 7=Complete IndependenceSCALE: Activities may be completed with or without assistive devices. 7-Mueuoxmwui-ztzfbwy completes the activity by him/herself with no assistance from a helper. 5-Set-up or Clean-up Assistance-helper sets up or cleans up; patient completes activity. [place] assists only prior to or following the activity. 4-Supervision or Touching Assistance-helper provides verbal cues and/or touching/steadying and/or contact guard assistance as patient completes activity. Assistance may be provided throughout the activity or intermittently. 3-Partial/Moderate Assistance-helper does LESS THAN HALF the effort. [place] lifts, holds or supports trunk or limbs, but provides less than half the effort. 2-Substantial/Maximal Assistance-helper does MORE THAN HALF the effort. [place] lifts or holds trunk or limbs and provides more than half the effort. 7-Zmgajmbsy-gywolw does ALL the effort. Patient does none of the effort to complete the activity. Or, the assistance of 2 or more helpers is required for the patient to complete the activity. If activity was not attempted, code reason: 7-Patient Refused. 9-Not Applicable-not attempted and the patient did not perform the activity before the current illness, exacerbation or injury. 10-Not Attempted due to Environmental Limitations-(lack of equipment, weather restraints, etc.). 88-Not Attempted due to Medical Conditions or Safety Concerns. Eating (QC): 6 (Per clinical judgement) Oral Hygiene (QC): 10 Bathing Location: L Arm, R Arm, L Upper Leg, R Upper Leg, L Lower Leg (including foot), R Lower Leg (including foot), Chest, Abdomen, Buttocks, Perineal Area Shower/Bathe Self (QC): 4 Upper Body Dressing (QC): 5 Lower Body Dressing (QC): 4 On/Off Footwear: 2 Toileting Hygiene (QC): 4 (CGA per clinical judgement) Toilet Transfer (QC): 4 (CGA) Education OT Patient Education: Use of adapted equipment Teaching Recipient: Patient Teaching Methods: Demonstration, Discussion Response to Teaching: Verbalize Understanding, Return Demonstration OT Residential Goals Residential Goals Time Frame: Feb 08, 2022 Acute change in mental status: 0 Inattention: 0 Disorganized thinkin Altered level of consciousness: 0 Eating (QC): 6 Oral Hygiene (QC): 10 Toileting Hygiene (QC): 6 Shower/Bathe Self (QC): 6 Upper Body Dressing (QC): 5 Lower Body Dressing (QC): 5 On/Off Footwear (QC): 5 Additional Goals: 1-Demonstrate ADL Tasks, 2-Verbalize Understanding, 3- ImproveStrength/Rani 1=Demonstrate adherence to instructed precautions during ADL tasks. 2=Patient will verbalize/demonstrate understanding of assistive devices /modifications for ADL. 3=Patient will improve strength/tolerance for activity to enable patient to perform ADL's. OT Education/Plan Problem List/Assessment Assessment: Decreased Activ Tolerance, Decreased Safety Aware, Decreased UE Strength, Impaired Funct Balance, Impaired Self-Care Skills Pt is currently at his PLOF with ADLs, but per physician orders and rehab process, OT will see pt for continued UE strengthening, activity tolerance, and increasing level of independence with ADLs and functional mobility. Discharge Recommendations Plan/Recommendations: Continue POC Treatment Plan/Plan of Care Patient would benefit from OT for education, treatment and training to promote independence in ADL's, mobility, safety and/or upper extremity function for ADL's. Plan of Care: ADL Retraining, Functional Mobility, Group Exercise/Act as Ind, UE Funct Exercise/Act Treatment Duration: Feb 08, 2022 Frequency: At least 5 of 7 days/Wk (IRF) Estimated Hrs Per Day: 1.5 hours per day Agreement: Yes Rehab Potential: Fair Time/GCodes Start Time: 10:15 (1130) Stop Time: 11:00 (1145) Total Time Billed (hr/min): 60 Billed Treatment Time 1st session: ([id number]) 1 visit ADL 3 (45 min) co-treat PT 45 min 2nd session: ([id number]) 1 visit ADL 1 (15 min) SALIMA YIN Jan 16, 2022 11:45
--- NOTE | 2022-01-16 15:38 | CONSULTATION REPORT ---
DATE OF SERVICE: 01/16/2022 ATTENDING PHYSICIAN: Dr. De Dios. SUMMARY: After reviewing the patient's record at the hospital and in the office, this is an 86-year-old white man first saw him in the office in January of last year because of voiding problems. His PSA was 0.88. I did a cystoscopy on him showed some enlargement of the prostate with some obstruction, could not do an ultrasound of the prostate because his rectal ampulla was full of stool, so we kept him on the Flomax b.i.d., which helped him after we increased it from once a day and last time, I saw him was 01/09/2022 of this year and he was voiding well, tolerating the Flomax well, emptying well. There was never ever mentioned about any history of urinary tract infection at that time. Dr. De Dios mentioned that he has had pseudomonas. He has been on antibiotics; however, developed Clostridium difficile for which he is treated now. IMPRESSION: Question history of urinary tract infection present one now, BPH with prostatism and retention, improved on the Flomax b.i.d. PLAN: We will check a bladder scan postvoid residual and manage accordingly. We will keep him on the Flomax b.i.d., present treatment for his other problems. Plan was fully explained to him and his . Job ID: [id number] DocumentID: [id number] Dictated Date: 01/16/2022 13:18:06 Expanding Machine Operator Date: 01/16/2022 15:37:58 Dictated By: GREG ODOM MD
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
[2022-01-16] MEDS ORDERED: RT-ALBUTEROL SULF 2.5 MG/3 ML PRE-MIX VIAL INH PRN (16:15)
[2022-01-16] MEDS ORDERED: CEFEPIME INJECTION 2,000 MG in NS (IVPB) 50 ML IV SCH (16:15)
[2022-01-16] MEDS ORDERED: FLEET ENEMA ADULT 1 EA BTL PR PRN (16:15)
[2022-01-16] MEDS ORDERED: CALCIUM CARBONATE 500 MG (TUMS) TAB.CHEW PO PRN (16:15)
[2022-01-16] MEDS ORDERED: LOPERAMIDE 2 MG (IMODIUM) TABLET PO PRN (16:15)
[2022-01-16] MEDS ORDERED: MELATONIN 3 MG TABLET PO PRN (16:15)
[2022-01-16] MEDS ORDERED: diphenhydrAMINE 25 MG TAB (BENADRYL) PO PRN (16:15)
[2022-01-16] MEDS ORDERED: ACETAMINOPHEN 325 MG TABLET PO PRN (16:15)
[2022-01-16] MEDS ORDERED: ONDANSETRON 4 MG (ZOFRAN) ORAL DISSOLVE TAB PO PRN (16:15)
[2022-01-16] MEDS ORDERED: BISACODYL 10 MG SUPP (DULCOLAX) PR PRN (16:15)
[2022-01-16] MEDS ORDERED: NITROGLYCERIN 0.4 MG SL TABS BTL 25'S SL PRN (16:15)
[2022-01-16] MEDS ORDERED: guaiFENesin/CODEINE (ROBITUSSIN AC) 10ML UDC PO PRN (16:15)
[2022-01-16] MEDS ORDERED: LACTULOSE SYRUP 10GM/15ML (ENULOSE) 30ML UDC PO PRN (16:15)
[2022-01-16] MEDS ORDERED: MEROPENEM 2,000 MG in NS (IVPB) 100 ML IV SCH (16:15)
[2022-01-16] MEDS ORDERED: NON-FORMULARY MEDICATION 1 EA EA (Semaglutide (Ozempic) 0.5 MG) SQ SCH (16:15)
[2022-01-16] MEDS ORDERED: ALPRAZolam 0.25 MG (XANAX) TAB PO PRN (16:15)
[2022-01-16] MEDS: VANCOMYCIN 125 MG CAPSULE PO SCH ×2 (18:50→21:09)
[2022-01-16] MEDS: CEFEPIME 1,000 MG/NS 50 ML IVPB IV SCH ×4 (18:51→23:30)
[2022-01-16 20:30] VITALS: BP 146/62
[2022-01-16] MEDS ORDERED: RT--FLUTICASONE/SALMETEROL 232-14 (AIRDUO RespiCLICK) IH SCH (21:00)
[2022-01-16] MEDS: LATANOPROST 0.005% (XALATAN) OPHTH SOLN 2.5 ML OU SCH (21:08)
[2022-01-16] MEDS: ASPIRIN E.C. 81 MG (ECOTRIN) TAB PO SCH (21:08)
[2022-01-16] MEDS: APIXABAN 5 MG (ELIQUIS) TABLET PO SCH (21:09)
[2022-01-16] MEDS: TAMSULOSIN 0.4 MG (FLOMAX) CAP PO SCH (21:09)
[2022-01-16] MEDS: meTOprolol TARTRATE 50 MG (LOPRESSOR) TAB PO SCH (21:09)
[2022-01-17] MEDS: CEFEPIME 1,000 MG/NS 50 ML IVPB IV SCH ×8 (05:07→23:23)
[2022-01-17 05:23] LABS: BASOPHILS # (AUTO) 0.1 10^3/uL (0.0-0.1); HEMOGLOBIN 10.6 g/dL (13.3-17.7); MONOCYTES # (AUTO) 0.5 10^3/uL (0.0-1.0)
[2022-01-17 05:25] LABS: BASOPHILS % (AUTO) 1 % (0-10); EOSINOPHILS # (AUTO) 0.3 10^3/uL (0.0-0.3); EOSINOPHILS % (AUTO) 4 % (0-10); HEMATOCRIT 33 % (40-54); LYMPHOCYTES # (AUTO) 1.6 10^3/uL (1.0-4.0); LYMPHOCYTES % (AUTO) 17 % (12-44); MEAN CORPUSCULAR HEMOGLOBIN 29 pg (25-34); MEAN CORPUSCULAR HGB CONC 32 g/dL (32-36); MEAN CORPUSCULAR VOLUME 89 fL (80-99); MEAN PLATELET VOLUME 10.7 fL (9.0-12.2); MONOCYTES % (AUTO) 6 % (0-12); NEUTROPHILS # (AUTO) 6.5 10^3/uL (1.8-7.8); NEUTROPHILS % (AUTO) 72 % (42-75)
[2022-01-17 05:27] LABS: PLATELET COUNT 107 10^3/uL (130-400)
[2022-01-17 05:35] LABS: ALBUMIN 2.8 GM/DL (3.2-4.5)
[2022-01-17 05:36] LABS: POTASSIUM 4.3 MMOL/L (3.6-5.0)
[2022-01-17 05:37] LABS: CALCIUM 8.5 MG/DL (8.5-10.1)
[2022-01-17 05:38] LABS: TOTAL PROTEIN 4.8 GM/DL (6.4-8.2)
[2022-01-17 05:40] LABS: BILIRUBIN,TOTAL 0.6 MG/DL (0.1-1.0)
[2022-01-17 05:42] LABS: CREATININE SERUM 0.9 MG/DL (0.60-1.30)
--- NOTE | 2022-01-17 05:48 | Individualized Plan of Care ---
Individualized Plan of Care Rehab Nursing IPOC Order Admission Date Jan 16, 2022 at 10:20 Current Orders Orders Admission Arrival Bed Request (01/16/22 09:38) Isolation Central Supply Req (01/16/22 10:25) Patient Visit (01/16/22 ) Speech Sound Lang Comp (01/16/22 ) Treat. Speech/Lang/Voice (01/16/22 ) General/Regular (01/16/22 Lunch) Patient Visit (01/16/22 ) Pt Eval Moderate Complexity (01/16/22 ) Functional Activities, Ea 15 (01/16/22 ) Bladder Scan (01/16/22 12:37) Admission Order(Inpt,Obs,Sdc) (01/16/22 16:05) Vital Signs: Per Unit Policy ( , (01/16/22 16:05) Cameron Hose (01/16/22 16:05) Sequential Compression Device (01/16/22 16:05) Flex O Writer Operator-Inpt Rehab Con (01/16/22 16:05) Rehab Nursing Orders-Ipoc (01/16/22 16:05) Physical Therapy Rehab Orders (01/16/22 16:05) Occupational Therapy Rehab Ord (01/16/22 16:05) Speech Therapy Rehab Orders (01/16/22 16:05) Cbc With Automated Diff (01/17/22 06:00) Comprehensive Metabolic Panel (01/17/22 06:00) Precautions (Aru) (01/16/22 16:05) Weekly Weight WEEK (01/16/22 16:05) Rehab-Intensity Of Therapy (01/16/22 16:05) Initiate Admission Nursing Pro .admission (01/16/22 16:05) Alprazolam Tablet (Xanax Tablet) (01/16/22 16:15) Calcium Carbonate Chew Tablet (Antacid C (01/16/22 16:15) Diphenhydramine Tablet (Benadryl Tablet) (01/16/22 16:15) Bisacodyl Suppository (Dulcolax Supposit (01/16/22 16:15) Lactulose Oral Solution (Enulose Oral So (01/16/22 16:15) Na Phos/Na Biphos Enema (Fleet Enema Keith (01/16/22 16:15) Guaifenesin/Codeine Syrup (Robitussin Ac (01/16/22 16:15) Loperamide Tablet (Imodium Tablet) (01/16/22 16:15) Melatonin Tablet (Melatonin Tablet) (01/16/22 16:15) Ondansetron Oral Dissolve Tab (Zofran (01/16/22 16:15) Acetaminophen Tablet/Caplet (Tylenol T (01/16/22 16:15) Initiate Admission Nursing Pro .admission (01/16/22 16:05) Code/Resuscitation (01/16/22 16:05) Albuterol Pre-Mix Nebs (Rt) (Proventil (01/16/22 16:15) Apixaban Tablet (Eliquis Tablet) (01/16/22 21:00) Aspirin Enteric Coated Tablet (Ecotrin T (01/16/22 21:00) Atorvastatin Tablet (Lipitor Tablet) (01/16/22 21:00) Calcium Carbonate W/Vitamin D3 (Calcarb (01/17/22 08:00) Furosemide Tablet (Lasix Tablet) (01/17/22 09:00) Losartan Tablet (Cozaar Tablet) (01/17/22 09:00) Metoprolol Tartrate (Ir) Tab (Lopressor (01/16/22 21:00) Nitroglycerin 0.4 Mg Btl 25's (Nitrostat (01/16/22 16:15) Potassium Chloride (Tablet) (Micro K Tab (01/17/22 08:00) Sertraline Tablet (Zoloft Tablet) (01/17/22 09:00) Tamsulosin Capsule (Flomax Capsule) (01/16/22 21:00) (Nf) Empagliflozin (Jardiance) (01/17/22 09:00) (Nf) Insulin Degludec (Tresiba Flextouch (01/17/22 09:00) Latanoprost 0.005% Ophth Soln (Xalatan 0 (01/16/22 21:00) (Nf) Semaglutide (Ozempic) (01/16/22 16:15) Svn Small Volume Nebulizer (01/16/22 16:09) Vancomycin Oral Capsule (Vancomycin Oral (01/16/22 17:00) Meropenem (Merrem 1000 Mg) (01/16/22 16:15) Cefepime Injection (Maxipime Injection) (01/16/22 16:15) Pharmacy Consult/Message (01/16/22 16:12) Cefepime Injection (Maxipime Injection) (01/16/22 17:00) Empagliflozin Tablet (Jardiance Tablet) (01/17/22 09:00) Fluticasone/Salmeterol 232-14 (Airduo Re (01/16/22 21:00) Fluticasone/Salmeterol 232-14 (Airduo Re (01/17/22 08:00) Umeclidinium [place] Inhaler (Incruse El (01/17/22 08:00) Patient May Use Own Meds, All (Patient M (01/17/22 09:15) (Nf) Ozempic (01/18/22 09:00) (Nf) Tresiba (01/17/22 09:25) Ekg Tracing (01/17/22 10:25) Bladder Scan-Straight Cath-Pos (01/17/22 10:27) Troponin I Anastacio (01/17/22 11:16) Troponin I Anastacio (01/17/22 15:30) Famotidine Tablet (Pepcid Tablet) (01/18/22 09:00) Famotidine Tablet (Pepcid Tablet) (01/17/22 12:00) Patient Visit (01/17/22 ) Exercise Therap, Ea 15 Min (01/17/22 ) Functional Activities, Ea 15 (01/17/22 ) Patient Visit (01/17/22 ) Exercise Therap, Ea 15 Min (01/17/22 ) Functional Activities, Ea 15 (01/17/22 ) Accucheck Achs ACHS (01/17/22 20:04) Rehab Nursing Orders: Ongoing Assess. of Cognitive Status, Ongoing Assess. of Function Status, Bladder Management, Bladder Scan, Bladder Training, Bowel Management, Bowel Training, Disease Management & Educaiton, DVT Prophylaxis, Fall Prevention, Fluid/Electrolyte/Nutrition Mgmt, Infection Prevention, Medication Management & Education, Management of Risks & Complications, Management of Skin Intergrity, Nutrition Management, Pain Management, Patient/Family Support Intensity of Therapy to be met Patient to be seen: Min.3h per day/5 of 7d PT IPOC Problem List: Activity Tolerance, Functional Strength, Safety, Balance, Gait, Transfer, Bed Mobility, ROM Treatment Plan: Continue Plan of Care Bed Mobility, Education, Functional Activity Rani, Functional Strength, Group Therapy, Gait, Safety, Therapeutic Exercise, Transfers Treatment Duration: Feb 06, 2022 Frequency: At least 5 of 7 days/Wk (IRF) Estimated Hrs Per Day: 1.5 hours per day OT IPOC Problems: Decreased Activ Tolerance, Decreased Safety Aware, Decreased UE Strength, Impaired Funct Balance, Impaired Self-Care Skills OT Treatment, Training and Edu: Yes OT Problems Pt is currently at his PLOF with ADLs, but per physician orders and rehab process, OT will see pt for continued UE strengthening, activity tolerance, and increasing level of independence with ADLs and functional mobility. Plan of Care: ADL Retraining, Functional Mobility, Group Exercise/Act as Ind, UE Funct Exercise/Act Treatment Duration: Feb 08, 2022 Frequency: At least 5 of 7 days/Wk (IRF) Estimated Hrs Per Day: 1.[address] IPOC Speech Therapy Treatment Plan: Discontinue ST Treatment Duration: Jan 16, 2022 Frequency: 1 time per week Estimated Hrs Per Day: .5 hour per day Flex O Writer Operator/Case Mgmt Flex O Writer Operator/Case Managemen: Discharge Planning Dietitian/Optical Lens Manufacturing Tech Dietitian/Optical Lens Manufacturing Tech to monitor nutritional status and make changes and/or recommendations as needed and work with speech pathology on dietary upgrades as the occur. Physician IPOC Medical Issues being managed closely and that require the 24 hour availability of a physician: Recent recurrent Pseudomonas UTI requiring urology consultation in addition to C. difficile colitis with sepsis requiring vancomycin p.o. and IV fluids will require close monitoring along with cardiology management to improve status and eventually return back home independently Medical Issues: Bowel/Bladder Function, DVT Prophylaxis, Falls Precautions, Fluid/Electrolyte/Nutrition Balance, Infection Protection, Pain Management Brief Synthesis of Preadmission Screen, Post-Admission Evaluation, and Therapy Evaluations: PT and OT will focus on regaining ambulatory function with the use of assistive devices in order to regain independence in ADLs and ambulatory function in order to return back to independent living with spouse Medical Prognosis: Good Anticipated Length of Stay: 7 days EDEN FORDE DO Jan 17, 2022 05:48
--- NOTE | 2022-01-17 05:48 | PM&R Progress Note ---
Subjective HPI/CC On Admission Date Seen by Provider: Jan 17, 2022 Time Seen by Provider: 12:30 Subjective/Events-last exam 01/17/2022: Patient having a good day Less diarrhea Vancomycin p.o. tolerated for C. difficile colitis Cefepime for Pseudomonas UTI maintained No major concerns at this time Had an episode of chest pain Dr. Sparrow managed Review of Systems General: Fatigue, Malaise Objective Exam Vital Signs Vital Signs Date Time Temp Pulse Resp B/P (MAP) Pulse Ox O2 Delivery O2 Flow Rate FiO2 01/17/22 21:10 100 Room Air 01/17/22 20:30 36.1 70 22 136/83 (100) Capillary Refill : General Appearance: No Apparent Distress, WD/WN, Chronically ill, Obese HEENT: PERRL/EOMI, Normal ENT Inspection, Pharynx Normal Neck: Full Range of Motion, Normal Inspection, Non Tender, Supple, Carotid Bruit Respiratory: Chest Non Tender, Lungs Clear, Normal Breath Sounds, No Accessory Muscle Use, No Respiratory Distress Cardiovascular: Regular Rate, Rhythm, No Edema, No Gallop, No JVD, No Murmur, Normal Peripheral Pulses Gastrointestinal: Normal Bowel Sounds, No Organomegaly, No Pulsatile Mass, Non Tender, Soft Back: Normal Inspection, No CVA Tenderness, No Vertebral Tenderness Extremity: Normal Capillary Refill, Normal Inspection, Normal Range of Motion, Non Tender, No Calf Tenderness, No Pedal Edema Neurologic/Psychiatric: Alert, Oriented x3, No Motor/Sensory Deficits, ceo & co founder II- XII Norm as Tested, Depressed Affect, Motor Weakness (generalized) Skin: Normal Color, Warm/Dry Lymphatic: No Adenopathy Results/Procedures Lab Laboratory Tests 01/17/22 05:05 Patient resulted labs reviewed. FIM Transfers Therapy Code Descriptions/Definitions Functional [place] Measure: 0=Not Assessed/NA 4=Minimal Assistance 1=Total Assistance 5=Supervision or Setup 2=Maximal Assistance 6=Modified [place] 3=Moderate Assistance 7=Complete IndependenceSCALE: Activities may be completed with or without assistive devices. 4-Fbikzmnzzw-yrhgjwd completes the activity by him/herself with no assistance from a helper. 5-Set-up or Clean-up Assistance-helper sets up or cleans up; patient completes activity. [place] assists only prior to or following the activity. 4-Supervision or Touching Assistance-helper provides verbal cues and/or touching/steadying and/or contact guard assistance as patient completes activity. Assistance may be provided throughout the activity or intermittently. 3-Partial/Moderate Assistance-helper does LESS THAN HALF the effort. [place] lifts, holds or supports trunk or limbs, but provides less than half the effort. 2-Substantial/Maximal Assistance-helper does MORE THAN HALF the effort. [place] lifts or holds trunk or limbs and provides more than half the effort. 4-Kpzbnoqxz-phyymg does ALL the effort. Patient does none of the effort to complete the activity. Or, the assistance of 2 or more helpers is required for the patient to complete the activity. If activity was not attempted, code reason: 7-Patient Refused. 9-Not Applicable-not attempted and the patient did not perform the activity before the current illness, exacerbation or injury. 10-Not Attempted due to Environmental Limitations-(lack of equipment, weather restraints, etc.). 88-Not Attempted due to Medical Conditions or Safety Concerns. Roll Left to Right (QC): 6 Sit to Lying (QC): 4 Sit to Stand (QC): 3 Chair/Kxw-es-Ktnwu Xfer(QC): 4 Car Transfer (QC): 4 Gait Training Does the Patient Walk?: Yes Walk 10 feet (QC): 4 Walk 50 ft with 2 Turns(QC): 88 Walk 150 ft (QC): 88 Walking 10ft/uneven surface-QC: 3 Gait Assistive Device: FWW Wheelchair Training Does the Pt Use a Wheelchair?: Yes Distance: 120'x2 Wheel 50 ft with 2 turns (QC): 4 Wheel 150 ft (QC): 88 Type of Wheelchair: Manual Stair Training 1 Step (curb) (QC): 88 4 Steps (QC): 88 12 Steps (QC): 88 Balance Picking up an Object (QC): 4 (CGA using a impregnator operator) ADL-Treatment Eating (QC): 6 (Per clinical judgement) Oral Hygiene (QC): 10 Bathing Location: L Arm, R Arm, L Upper Leg, R Upper Leg, L Lower Leg (including foot), R Lower Leg (including foot), Chest, Abdomen, Buttocks, Perineal Area Shower/Bathe Self (QC): 4 Upper Body Dressing (QC): 5 Lower Body Dressing (QC): 4 On/Off Footwear (QC): 2 Toileting Hygiene (QC): 4 (CGA per clinical judgement) Toilet Transfer (QC): 4 (CGA) Assessment/Plan Assessment and Plan Assess & Plan/Chief Complaint Assessment: C diff colitis 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 difficile colitis treatment Maintain cefepime for Pseudomonas UTI (1) C. difficile colitis Status: Acute EDEN FORDE DO Jan 17, 2022 05:48
[2022-01-17 07:40] VITALS: BP 132/92
[2022-01-17] MEDS: CALCIUM CARB + VIT D 600 MG (CALCARB + D) TAB PO SCH (08:01)
[2022-01-17] MEDS: SERTRALINE 50 MG (ZOLOFT) TABLET PO SCH (08:02)
[2022-01-17] MEDS: EMPAGLIFLOZIN 10 MG TABLET (JARDIANCE) PO SCH (08:02)
[2022-01-17] MEDS: KCL 8 MEQ (MICRO K) TABLET PO SCH (08:02)
[2022-01-17] MEDS: APIXABAN 5 MG (ELIQUIS) TABLET PO SCH ×2 (08:02→20:34)
[2022-01-17] MEDS: LOSARTAN 25 MG (COZAAR) TAB PO SCH (08:02)
[2022-01-17] MEDS: meTOprolol TARTRATE 50 MG (LOPRESSOR) TAB PO SCH ×2 (08:03→20:34)
[2022-01-17] MEDS: FUROSEMIDE 20 MG (LASIX) TAB PO SCH (08:03)
[2022-01-17] MEDS: TAMSULOSIN 0.4 MG (FLOMAX) CAP PO SCH ×2 (08:03→20:34)
--- NOTE | 2022-01-17 08:52 | Physical Therapy Daily Note ---
PT Daily Note-Current Subjective Patient in bed pre tx, agrees to PT, voices no complaints of pain. Patient needs dressed but has a brief on. Pain Section J - Health Conditions 1. Rarely or not at all 2. Occasionally 3. Frequently 4. Almost constantly 8. Unable to answer Pain Effect on Sleep: 1 Pain Interference with Therapy: 1 Pain Interference w/Day-to-Day: 1 Appearance Patient in WC at bedside post tx with nurse call, phone, tray, all needs met. Has OT right after PT. Mental Status Patient Orientation: Person, Place, Situation Transfers SCALE: Activities may be completed with or without assistive devices. 4-Pgtoopykpk-azllpqz completes the activity by him/herself with no assistance from a helper. 5-Set-up or Clean-up Assistance-helper sets up or cleans up; patient completes activity. [place] assists only prior to or following the activity. 4-Supervision or Touching Assistance-helper provides verbal cues and/or touchin g/steadying and/or contact guard assistance as patient completes activity. Assistance may be provided throughout the activity or intermittently. 3-Partial/Moderate Assistance-helper does LESS THAN HALF the effort. [place] lifts, holds or supports trunk or limbs, but provides less than half the effort. 2-Substantial/Maximal Assistance-helper does MORE THAN HALF the effort. [place] lifts or holds trunk or limbs and provides more than half the effort. 7-Oqpgubbef-duhdsr does ALL the effort. Patient does none of the effort to complete the activity. Or, the assistance of 2 or more helpers is required for the patient to complete the activity. If activity was not attempted, code reason: 7-Patient Refused. 9-Not Applicable-not attempted and the patient did not perform the activity before the current illness, exacerbation or injury. 10-Not Attempted due to Environmental Limitations-(lack of equipment, weather restraints, etc.). 88-Not Attempted due to Medical Conditions or Safety Concerns. Roll Left & Right (QC): 6 Lying to Sitting/Side of Bed(Q: 6 Sit to Stand (QC): 3 Chair/Hij-bf-Puowl Xfer(QC): 4 Gait Training Distance: 30', 20' Walk 10 feet (QC): 4 Gait Persons Needed: 1 Gait Assistive Device: FWW slow but steady ambulation going strait, has difficulty with turning Wheelchair Training Does the Pt Use a Wheelchair?: Yes Wheel 50 ft with 2 turns (QC): 4 Wheel 150 ft (QC): 4 Type of Wheelchair: Manual 120'x2, needs several rest breaks going each way Exercises Standing: Heel/toe raises Standing Reps: 15 NuStep Minutes: 15 NuStep Workload: 5 Treatments bed mobility and transfers, ambulation, functional strengthening, dressing Assessment Current Status: Fair Progress Patient states he is SOB with activity, more than normal. Several different pulse oximeters were not able to get a reading on his O2. Instructed patient to purse lip breathe when SOB, rest, and resume when he had recovered. PT Short Term Goals Short Term Goals Time Frame: Jan 23, 2022 Roll Left & Right: 6 Sit to lyin Lying to sitting on side of be: 5 Sit to stand: 4 Chair/aoo-jx-nhbua transfer: 4 Walk 10 feet: 4 PT Nursing Home Goals Nursing Home Goals PT Nursing Home Goals Time Frame: Feb 06, 2022 Roll Left & Right (QC): 6 Sit to Lying (QC): 6 Lying-Sitting on Side/Bed(QC): 6 Sit to Stand (QC): 5 Chair/Wqz-yd-Fsrbt Xfer(QC): 5 Toilet Transfer (QC): 5 Car Transfer (QC): 5 Does the Patient Walk: Yes Walk 10 feet (QC): 5 Walk 50ft with 2 Turns (QC): 5 Walk 150 ft (QC): 88 Walking 10ft on Uneven Surface: 5 1 Step (curb) (QC): 3 4 Steps (QC): 88 12 Steps (QC): 88 Picking up an Object (QC): 5 Wheel 50 feet with 2 turns (QC: 6 Wheel 150 feet: 6 PT Plan Problem List Problem List: Activity Tolerance, Functional Strength, Safety, Balance, Gait, Transfer, Bed Mobility, ROM Treatment/Plan Treatment Plan: Continue Plan of Care Treatment Plan: Bed Mobility, Education, Functional Activity Rani, Functional Strength, Group Therapy, Gait, Safety, Therapeutic Exercise, Transfers Treatment Duration: Feb 06, 2022 Frequency: At least 5 of 7 days/Wk (IRF) Estimated Hrs Per Day: 1.5 hours per day Patient and/or Family Agrees t: Yes Safety Risks/Education Patient Education: Gait Training, Transfer Techniques, Correct Positioning, W/C Management, Safety Issues Teaching Recipient: Patient Teaching Methods: Demonstration, Discussion Response to Teaching: Reinforcement Needed Time/GCodes Time In: 0800 Time Out: 0900 Total Billed Treatment Time: 60 Total Billed Treatment 1 visit EX 15' FA 45' KILLIAN VAUGHN PT Jan 17, 2022 08:52
[2022-01-17] MEDS ORDERED: INSULIN DEGLUDEC SQ SCH (09:00)
[2022-01-17] MEDS ORDERED: NON-FORMULARY MEDICATION 1 EA EA (Empagliflozin (Jardiance) 25 MG) PO SCH (09:00)
[2022-01-17] MEDS ORDERED: PATIENT MAY USE OWN MEDS, ALL MC SCH (09:15)
[2022-01-17] MEDS: VANCOMYCIN 125 MG CAPSULE PO SCH ×4 (10:10→20:34)
[2022-01-17] MEDS: INSULIN DEGLUDEC SQ SCH (10:10)
--- NOTE | 2022-01-17 10:24 | Progress Note - Urology ---
Progress Note-Urology Progress Notes/Assess & Plan Progress/Assessment & Plan NO PVR DONE YESTERDAY. WE WILL DO TODAY HOPEFULLY Final Diagnosis RETENTION GREG ODOM MD Jan 17, 2022 10:24
--- NOTE | 2022-01-17 10:54 | Occupational Ther Daily Note ---
OT Current Status-Daily Note Subjective Pt sitting in WC alert. Pt agrees to therapy. No c/o pain at this time. Mental Status/Objective Patient Orientation: Person, Place, Time, Situation Attachments: IV Acute change in mental status: 0 Inattention: 2 Disorganized thinkin Altered level of consciousness: 0 ADL-Treatment Pt refusal to complete oral care. Pt requests to change his clothes. After set up pt donned/doffed UB clothing by self. Pt CGA while standing to hike pants over hips in LB dressing. Pt reeducated in using AE to don socks. Pt min A donning socks using AE. Using figure 4 pt able to don shoes but not able to tie. Pt given elastic shoelaces then educated in use. Pt self propels WC to therapy gym. Pt incontinent of urine. Pt ambulates to bathroom min A due to fatigue and loss of balance. Pt transfers to toilet CGA. Pt min A in toilet hygiene. Due to fatigue and SOA, PEDROZA donned LB clothing. Pt ambulated to recliner using FWW. Pt left with nrsg in room. All needs met. Therapy Code Descriptions/Definitions Functional [place] Measure: 0=Not Assessed/NA 4=Minimal Assistance 1=Total Assistance 5=Supervision or Setup 2=Maximal Assistance 6=Modified [place] 3=Moderate Assistance 7=Complete IndependenceSCALE: Activities may be completed with or without assistive devices. 7-Vcjoegzqtk-nyulumo completes the activity by him/herself with no assistance from a helper. 5-Set-up or Clean-up Assistance-helper sets up or cleans up; patient completes activity. [place] assists only prior to or following the activity. 4-Supervision or Touching Assistance-helper provides verbal cues and/or touching/steadying and/or contact guard assistance as patient completes activity. Assistance may be provided throughout the activity or intermittently. 3-Partial/Moderate Assistance-helper does LESS THAN HALF the effort. [place] lifts, holds or supports trunk or limbs, but provides less than half the effort. 2-Substantial/Maximal Assistance-helper does MORE THAN HALF the effort. [place] lifts or holds trunk or limbs and provides more than half the effort. 1-Mdiioecln-kfslem does ALL the effort. Patient does none of the effort to complete the activity. Or, the assistance of 2 or more helpers is required for the patient to complete the activity. If activity was not attempted, code reason: 7-Patient Refused. 9-Not Applicable-not attempted and the patient did not perform the activity before the current illness, exacerbation or injury. 10-Not Attempted due to Environmental Limitations-(lack of equipment, weather restraints, etc.). 88-Not Attempted due to Medical Conditions or Safety Concerns. Oral Hygiene (QC): 7 Upper Body Dressing (QC): 5 Lower Body Dressing (QC): 4 On/Off Footwear: 4 Toileting Hygiene (QC): 3 Toilet Transfer (QC): 4 Other Treatment Pt completed 10 min with arm bike at 25 quintanilla resistance, to strengthen B UE for daily functional tasks. Pt required rest 4x during arm bike. Pt completed fine motor task of removing small objects from medium/heavy theraputty, to strengthen pinch/electric refrigerator servicer strength for ADL's. Pt completed a fine/gross motor activity, with a cognition component, in standing to work on dynamic standing balance. Pt required multiple verbal cues plus mod encouragement to stand and finish activity. Education OT Patient Education: Use of adapted equipment Teaching Recipient: Patient, Primary Caregiver Teaching Methods: Demonstration, Discussion Response to Teaching: Verbalize Understanding, Return Demonstration OT Circuit Walker Goals Circuit Walker Goals Time Frame: Feb 08, 2022 Acute change in mental status: 0 Inattention: 0 Disorganized thinkin Altered level of consciousness: 0 Eating (QC): 6 Oral Hygiene (QC): 10 Toileting Hygiene (QC): 6 Shower/Bathe Self (QC): 6 Upper Body Dressing (QC): 5 Lower Body Dressing (QC): 5 On/Off Footwear (QC): 5 Additional Goals: 1-Demonstrate ADL Tasks, 2-Verbalize Understanding, 3- ImproveStrength/Rani 1=Demonstrate adherence to instructed precautions during ADL tasks. 2=Patient will verbalize/demonstrate understanding of assistive devices/modifications for ADL. 3=Patient will improve strength/tolerance for activity to enable patient to perform ADL's. OT Education/Plan Problem List/Assessment Assessment: Decreased Activ Tolerance, Decreased Safety Aware, Decreased UE Strength, Impaired Cognition, Impaired Coordination, Impaired Funct Balance, Impaired Self-Care Skills Pt is currently at his PLOF with ADLs, but per physician orders and rehab process, OT will see pt for continued UE strengthening, activity tolerance, and increasing level of independence with ADLs and functional mobility. Discharge Recommendations Plan/Recommendations: Continue POC Treatment Plan/Plan of Care Patient would benefit from OT for education, treatment and training to promote independence in ADL's, mobility, safety and/or upper extremity function for ADL's. Plan of Care: ADL Retraining, Functional Mobility, Group Exercise/Act as Ind, UE Funct Exercise/Act Treatment Duration: Feb 08, 2022 Frequency: At least 5 of 7 days/Wk (IRF) Estimated Hrs Per Day: 1.5 hours per day Agreement: Yes Rehab Potential: Fair Time/GCodes Start Time: 09:00 Stop Time: 10:30 Total Time Billed (hr/min): 90 Billed Treatment Time 1 visit ADL 3 (40 min) EX 3 (50 min) SALIMA YIN Jan 17, 2022 10:54
[2022-01-17] MEDS: RT--FLUTICASONE/SALMETEROL 232-14 (AIRDUO RespiCLICK) IH SCH ×2 (10:58→20:15)
[2022-01-17] MEDS: UMECLIDINIUM BROMIDE (INCRUSE ELLIPTA) 7'S IH SCH (10:58)
[2022-01-17] MEDS ORDERED: FAMOTIDINE 20 MG (PEPCID) TABLET PO ONE (12:00)
--- NOTE | 2022-01-17 13:10 | Progress Note - Cardiology ---
Cardiology SOAP Progress Note Subjective: We were called to see him for chest discomfort after rehab exercises earlier today Discomfort epigastric, mod, pressure-like, w/o radiation, w/o other symptoms, relieved with Tylenol and Pepcid No palp or shortness of breath or syncope Gen malaise and weakness No n/v Objective: I&O/Vital Signs 01/17/22 01/17/22 07:40 11:00 Temp 36.5 Pulse 97 Resp 22 B/P (MAP) 132/92 (105) Pulse Ox 96 98 O2 Delivery Room Air Room Air Constitutional: AAO x 3, well-developed, well-nourished Respiratory: No accessory muscle use; other (good, bilat air entry) Cardiovascular: regular rate-rhythm, S1 and S2, systolic murmur (soft YARON at card base) Gastrointestional: tender (mild epigastic tenderness), soft; No guarding, No rebound; audible bowel sounds Extremities: No clubbing, No cyanosis, No significant edema Neurologic/Psychiatric: oriented x 3, other (moves all limbs equally) Skin: No rash, No ulcerations Results/Procedures: Labs Laboratory Tests 01/16/22 15:49: Glucometer 117H 01/16/22 20:14: Glucometer 160H 01/17/22 05:05: White Blood Count 9.0, Red Blood Count 3.70L, Hemoglobin 10.6L, Hematocrit 33L, Mean Corpuscular Volume 89, Mean Corpuscular Hemoglobin 29, Mean Corpuscular Hemoglobin Concent 32, Red Cell Distribution Width 14.8H, Platelet Count 107L, Mean Platelet Volume 10.7, Immature Granulocyte % (Auto) 0, Neutrophils (%) (Auto) 72, Lymphocytes (%) (Auto) 17, Monocytes (%) (Auto) 6, Eosinophils (%) (Auto) 4, Basophils (%) (Auto) 1, Neutrophils # (Auto) 6.5, Lymphocytes # (Auto) 1.6, Monocytes # (Auto) 0.5, Eosinophils # (Auto) 0.3, Basophils # (Auto) 0.1, Immature Granulocyte # (Auto) 0.0, Percent Immature Platelet Fraction 4.0, Sodium Level 143, Potassium Level 4.3, Chloride Level 113H, Carbon Dioxide Level 20L, Anion Gap 10, Blood Urea Nitrogen 11, Creatinine 0.90, Estimat Glomerular Filtration Rate 84, BUN/Creatinine Ratio 12, Glucose Level 105, Calcium Level 8.5, Corrected Calcium 9.5, Total Bilirubin 0.6, Aspartate Amino Transf (AST/SGOT) 14, Alanine Aminotransferase (ALT/SGPT) 15, Alkaline Phosphatase 65, Total Protein 4.8L, Albumin 2.8L 01/17/22 11:29: Troponin I 0.042H Laboratory Tests 01/17/22 05:05 A/P: Assessment: Nonspecific chest discomfort - 01/17/22 - ECG during the discomfort showed paced atrial rhythm and quileute QRS without any evidence of ischemia/NC C-diff and pseudomonas UTI - Dr De Dios managing Chronic poor balance of undetermined etiology - unchanged Chronic shortness of breath with exertion - Echocardiogram of 06-08-20. LVEF 60-65%. Grade 2 diastolic dysfunction. Mild MR. Mild to mod TR. PASP 50-55mmHg H/o dual ch perm pacemaker ([employer]) - implanted for symptomatic bradycardia in Nov [address] Brooks in [place], [place]. - gen change in late August 2020 - device functioning normally per interrogation of 11-07-21 and on ECG of 01/17/22 S/p TAVR - ([employer] Model [id number], Sr no [id number]) on 12/24/19 at [place], [place] H/o SVT and A Fib/Fl - stated to have been treated with ablation in October 2016 at [facility] in [place], [place] - chronic apixaban anticoagulation CAD - H/o cor stents in Mar 2015 at [facility]. - MPI of 01-16-21 No evidence of any significant myocardial ischemia or infarction on this study. Normal regional wall motion. Normal global left v entricular systolic function with a calculated ejection fraction of 71%. COPD - managed by PCP DM II - managed by PCP Obesity - with BMI approx 38.5 and obesity-hypoventilation and MONISHA Medication Allergies - (per pt report): Anaphylaxis for penicillin and phenergan - bronchospasm with sotalol and rozarem Opthamology - H/o bilateral cataract surgery and lens implants L-sided, dry, macular degen Mild hearing loss - unchanged Carotid dz - There appears to be considerable plaque and moderate stenosis of the R common carotid and mild to moderate stenosis of the R internal carotid. Approximately 50% L internal carotid artery stenosis per u/s of Feb 23, 2020 - Carotid u/s of 07-03-21 shows approx 60-79% L ICA and approx 50% R ICA stenosis Chronic, intermittent leg discomfort - Segmentals pressure of Feb 23, 2020 showed no evidence of any signif blood flow impairment to the distal arterial circulation of the lower limbs. Prox atherosclerosis is suggested. - No c/o claudication Plan: * No distinct evidence of ACS * Symptoms relieved Tylenol and Pepcid. Continue scheduled Pepcid and prn Tylenol * Serial troponin * Monitor labs MERCEDES VAZQUEZ MD FACP FAC CCDS Jan 17, 2022 13:10
--- NOTE | 2022-01-17 15:06 | Physical Therapy Daily Note ---
PT Daily Note-Current Subjective Pt. declines walking much right now but really wants to go "back to the gym tomorrow morning for a work out". Pt. states he is a bit troubled by some pain and discomfort he had in his saha,/mid chest earlier today, pt mentions it several times, he says he was in discomfort for about 1.5 hrs and nurse gave him meds that seemed to help. Pt denied SOB or radiating pain or any other sxs. Pt. was instructed to notify nurse immediately if he had any more sxs like this Pain Numeric Pain Scale: 4 Location: No Pain Reported, Left Location Body Site: Knee Pain Description: Ache Comment: with knee exercises Section J - Health Conditions 1. Rarely or not at all 2. Occasionally 3. Frequently 4. Almost constantly 8. Unable to answer Pain Effect on Sleep: 1 Pain Interference with Therapy: 1 Pain Interference w/Day-to-Day: 1 Mental Status Patient Orientation: Normal For Age Transfers SCALE: Activities may be completed with or without assistive devices. 0-Zydzwkedjh-qfioeoq completes the activity by him/herself with no assistance from a helper. 5-Set-up or Clean-up Assistance-helper sets up or cleans up; patient completes activity. [place] assists only prior to or following the activity. 4-Supervision or Touching Assistance-helper provides verbal cues and/or touching/steadying and/or contact guard assistance as patient completes activity. Assistance may be provided throughout the activity or intermittently. 3-Partial/Moderate Assistance-helper does LESS THAN HALF the effort. [place] lifts, holds or supports trunk or limbs, but provides less than half the effort. 2-Substantial/Maximal Assistance-helper does MORE THAN HALF the effort. [place] lifts or holds trunk or limbs and provides more than half the effort. 5-Jgwxekenm-fjvgrd does ALL the effort. Patient does none of the effort to complete the activity. Or, the assistance of 2 or more helpers is required for the patient to complete the activity. If activity was not attempted, code reason: 7-Patient Refused. 9-Not Applicable-not attempted and the patient did not perform the activity before the current illness, exacerbation or injury. 10-Not Attempted due to Environmental Limitations-(lack of equipment, weather restraints, etc.). 88-Not Attempted due to Medical Conditions or Safety Concerns. Sit to Stand (QC): 6 Exercises Supine Ex: Ankle pumps, Quad Set, Rolling, Glut sets, Lower trunk rotation, Heel Slides, Knee to chest, Short Arc Quads, Scooting (up), Straight leg raise, Hip abd/add Supine Reps: 10 (x2) Seated Therapy Exercises: Ankle pumps, Sit to stand, Long arc quads Seated Reps: 12 Treatments supine and sit ex, sit to stands, pt.was instructed in use of recliner in his room, specifically levers at fingertips to allow chair back to recline Assessment Current Status: Good Progress progressing already PT Short Term Goals Short Term Goals Time Frame: Jan 23, 2022 Roll Left & Right: 6 Sit to lyin Lying to sitting on side of be: 5 Sit to stand: 4 Chair/hux-il-kgwqm transfer: 4 Walk 10 feet: 4 PT Correction Goals Electrical And Instrument Technician Goals PT Correction Goals Time Frame: Feb 06, 2022 Roll Left & Right (QC): 6 Sit to Lying (QC): 6 Lying-Sitting on Side/Bed(QC): 6 Sit to Stand (QC): 5 Chair/Mpp-pa-Wxosj Xfer(QC): 5 Toilet Transfer (QC): 5 Car Transfer (QC): 5 Does the Patient Walk: Yes Walk 10 feet (QC): 5 Walk 50ft with 2 Turns (QC): 5 Walk 150 ft (QC): 88 Walking 10ft on Uneven Surface: 5 1 Step (curb) (QC): 3 4 Steps (QC): 88 12 Steps (QC): 88 Picking up an Object (QC): 5 Wheel 50 feet with 2 turns (QC: 6 Wheel 150 feet: 6 PT Plan Treatment/Plan Treatment Plan: Continue Plan of Care Treatment Plan: Bed Mobility, Education, Functional Activity Rani, Functional Strength, Group Therapy, Gait, Safety, Therapeutic Exercise, Transfers Treatment Duration: Feb 06, 2022 Frequency: At least 5 of 7 days/Wk (IRF) Estimated Hrs Per Day: 1.5 hours per day Patient and/or Family Agrees t: Yes Safety Risks/Education Patient Education: Transfer Techniques, Correct Positioning, Disease Process, Safety Issues Teaching Recipient: Patient Teaching Methods: Demonstration, Discussion Response to Teaching: Verbalize Understanding, Return Demonstration, Reinforcement Needed Time/GCodes Time In: 1435 Time Out: 1455 Total Billed Treatment Time: 30 Total Billed Treatment 1,FA10m,EX20m IOANA VALLES BODY BUILDER APPRENTICE Jan 17, 2022 15:06
[2022-01-17 20:30] VITALS: BP 136/83
[2022-01-17] MEDS: ASPIRIN E.C. 81 MG (ECOTRIN) TAB PO SCH (20:34)
[2022-01-17] MEDS: LATANOPROST 0.005% (XALATAN) OPHTH SOLN 2.5 ML OU SCH (20:34)
[2022-01-18] MEDS: CEFEPIME 1,000 MG/NS 50 ML IVPB IV SCH ×8 (05:23→22:26)
--- NOTE | 2022-01-18 05:54 | PM&R Progress Note ---
Subjective HPI/CC On Admission Date Seen by Provider: Jan 18, 2022 Time Seen by Provider: 12:30 Subjective/Events-last exam 01/18/2022: Improved status Less diarrhea Vanc PO tolerated Cefepime IV 01/17/2022: Patient having a good day Less diarrhea Vancomycin p.o. tolerated for C. difficile colitis Cefepime for Pseudomonas UTI maintained No major concerns at this time Had an episode of chest pain Dr. Sparrow managed Review of Systems General: Fatigue, Malaise Gastrointestinal: Diarrhea Objective Exam Vital Signs Vital Signs Date Time Temp Pulse Resp B/P (MAP) Pulse Ox O2 Delivery O2 Flow Rate FiO2 01/18/22 21:00 Room Air 01/18/22 20:46 97 01/18/22 20:23 36.0 71 20 129/68 (88) Capillary Refill : General Appearance: No Apparent Distress, WD/WN, Chronically ill, Obese HEENT: PERRL/EOMI, Normal ENT Inspection, Pharynx Normal Neck: Full Range of Motion, Normal Inspection, Non Tender, Supple, Carotid Bruit Respiratory: Chest Non Tender, Lungs Clear, Normal Breath Sounds, No Accessory Muscle Use, No Respiratory Distress Cardiovascular: Regular Rate, Rhythm, No Edema, No Gallop, No JVD, No Murmur, Normal Peripheral Pulses Gastrointestinal: Normal Bowel Sounds, No Organomegaly, No Pulsatile Mass, Non Tender, Soft Back: Normal Inspection, No CVA Tenderness, No Vertebral Tenderness Extremity: Normal Capillary Refill, Normal Inspection, Normal Range of Motion, Non Tender, No Calf Tenderness, No Pedal Edema Neurologic/Psychiatric: Alert, Oriented x3, No Motor/Sensory Deficits, machine load clerk II- XII Norm as Tested, Depressed Affect, Motor Weakness (generalized) Skin: Normal Color, Warm/Dry Lymphatic: No Adenopathy Results/Procedures Lab Patient resulted labs reviewed. FIM Transfers Therapy Code Descriptions/Definitions Functional [place] Measure: 0=Not Assessed/NA 4=Minimal Assistance 1=Total Assistance 5=Supervision or Setup 2=Maximal Assistance 6=Modified [place] 3=Moderate Assistance 7=Complete IndependenceSCALE: Activities may be completed with or without assistive devices. 8-Huecummdxx-ekewjvx completes the activity by him/herself with no assistance from a helper. 5-Set-up or Clean-up Assistance-helper sets up or cleans up; patient completes activity. [place] assists only prior to or following the activity. 4-Supervision or Touching Assistance-helper provides verbal cues and/or t ouching/steadying and/or contact guard assistance as patient completes activity. Assistance may be provided throughout the activity or intermittently. 3-Partial/Moderate Assistance-helper does LESS THAN HALF the effort. [place] lifts, holds or supports trunk or limbs, but provides less than half the effort. 2-Substantial/Maximal Assistance-helper does MORE THAN HALF the effort. [place] lifts or holds trunk or limbs and provides more than half the effort. 9-Zjcyoppor-vidxuj does ALL the effort. Patient does none of the effort to complete the activity. Or, the assistance of 2 or more helpers is required for the patient to complete the activity. If activity was not attempted, code reason: 7-Patient Refused. 9-Not Applicable-not attempted and the patient did not perform the activity before the current illness, exacerbation or injury. 10-Not Attempted due to Environmental Limitations-(lack of equipment, weather restraints, etc.). 88-Not Attempted due to Medical Conditions or Safety Concerns. Roll Left to Right (QC): 6 Sit to Lying (QC): 4 Sit to Stand (QC): 6 Chair/Lgt-kr-Cxalj Xfer(QC): 4 Car Transfer (QC): 4 Gait Training Does the Patient Walk?: Yes Distance: 30', 20' Walk 10 feet (QC): 4 Walk 50 ft with 2 Turns(QC): 88 Walk 150 ft (QC): 88 Walking 10ft/uneven surface-QC: 3 Gait Persons Needed: 1 Gait Assistive Device: FWW Wheelchair Training Does the Pt Use a Wheelchair?: Yes Distance: 120'x2 Wheel 50 ft with 2 turns (QC): 4 Wheel 150 ft (QC): 4 Type of Wheelchair: Manual Stair Training 1 Step (curb) (QC): 88 4 Steps (QC): 88 12 Steps (QC): 88 Balance Picking up an Object (QC): 4 (CGA using a learning strategist) ADL-Treatment Eating (QC): 6 (Per clinical judgement) Oral Hygiene (QC): 7 Bathing Location: L Arm, R Arm, L Upper Leg, R Upper Leg, L Lower Leg (including foot), R Lower Leg (including foot), Chest, Abdomen, Buttocks, Perineal Area Shower/Bathe Self (QC): 4 Upper Body Dressing (QC): 5 Lower Body Dressing (QC): 4 On/Off Footwear (QC): 4 Toileting Hygiene (QC): 3 Toilet Transfer (QC): 4 Assessment/Plan Assessment and Plan Assess & Plan/Chief Complaint Assessment: C diff colitis 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 difficile colitis treatment Maintain cefepime for Pseudomonas UTI 01/18/2022: Vanc PO (1) C. difficile colitis Status: Acute EDEN FORDE DO Jan 18, 2022 05:54
[2022-01-18 07:55] VITALS: BP 124/57
[2022-01-18] MEDS: EMPAGLIFLOZIN 10 MG TABLET (JARDIANCE) PO SCH (09:00)
[2022-01-18] MEDS ORDERED: SEMAGLUTIDE SQ SCH (09:00)
--- NOTE | 2022-01-18 09:39 | Progress Note - Urology ---
Progress Note-Urology Progress Notes/Assess & Plan Progress/Assessment & Plan VOIDING WELL. PVR 17CC. WILL SEE PRN. KEEP OFFICE APPOINTMENT Final Diagnosis UTI GREG ODOM MD Jan 18, 2022 09:39
[2022-01-18] MEDS: KCL 8 MEQ (MICRO K) TABLET PO SCH (09:54)
[2022-01-18] MEDS: FAMOTIDINE 20 MG (PEPCID) TABLET PO SCH (09:55)
[2022-01-18] MEDS: VANCOMYCIN 125 MG CAPSULE PO SCH ×4 (09:56→22:26)
[2022-01-18] MEDS: SERTRALINE 50 MG (ZOLOFT) TABLET PO SCH (09:56)
[2022-01-18] MEDS: TAMSULOSIN 0.4 MG (FLOMAX) CAP PO SCH ×2 (09:56→20:09)
[2022-01-18] MEDS: CALCIUM CARB + VIT D 600 MG (CALCARB + D) TAB PO SCH (09:56)
[2022-01-18] MEDS: LOSARTAN 25 MG (COZAAR) TAB PO SCH (09:56)
[2022-01-18] MEDS: APIXABAN 5 MG (ELIQUIS) TABLET PO SCH ×2 (09:57→20:09)
[2022-01-18] MEDS: meTOprolol TARTRATE 50 MG (LOPRESSOR) TAB PO SCH ×2 (09:57→20:09)
[2022-01-18] MEDS: FUROSEMIDE 20 MG (LASIX) TAB PO SCH (09:57)
[2022-01-18] MEDS: INSULIN DEGLUDEC SQ SCH (10:03)
--- NOTE | 2022-01-18 10:18 | Occupational Ther Daily Note ---
OT Current Status-Daily Note Subjective Pt alert, sitting in recliner. Pt agrees to therapy. No c/o pain. Mental Status/Objective Patient Orientation: Person, Place, Time, Situation Attachments: IV Acute change in mental status: 0 Inattention: 0 Disorganized thinkin Altered level of consciousness: 0 ADL-Treatment Pt demonstrates SOA throughout session and requires lengthy recovery break between tasks. Pt agrees to shower. Pt had donned one sock/shoe prior to PEDROZA entering room. Pt then doffed by self. Pt ambulated to bathroom using FWW with CGA. CGA for toilet/BSC transfer. Pt able to manipulate own clothing with CGA, no hygiene needed at that time. CGA to transfer in/out of shower using FWW, grabbars and shower bench. Pt completed shower in sitting 100% of the time, leans side to side to cleanse buttocks. Pt completed shower with supervision for safety. After set up, pt completes upper body dressing by self. After set up, pt able to thread feet into lower body clothing then CGA in standing to hike pants over hips. Pt had one LOB unable to regain balance, sat down hard on chair. Pt declines completing oral care since dentures are not here. After set up and using AE, pt able to don socks/shoes by self, doffs both without AE. After session, pt sitting in recliner with call light/phone in reach. Nrsg present in room. All needs met. Therapy Code Descriptions/Definitions Functional [place] Measure: 0=Not Assessed/NA 4=Minimal Assistance 1=Total Assistance 5=Supervision or Setup 2=Maximal Assistance 6=Modified [place] 3=Moderate Assistance 7=Complete IndependenceSCALE: Activities may be completed with or without assistive devices. 9-Qlogsuyklf-qswewnt completes the activity by him/herself with no assistance from a helper. 5-Set-up or Clean-up Assistance-helper sets up or cleans up; patient completes activity. [place] assists only prior to or following the activity. 4-Supervision or Touching Assistance-helper provides verbal cues and/or to uching/steadying and/or contact guard assistance as patient completes activity. Assistance may be provided throughout the activity or intermittently. 3-Partial/Moderate Assistance-helper does LESS THAN HALF the effort. [place] lifts, holds or supports trunk or limbs, but provides less than half the effort. 2-Substantial/Maximal Assistance-helper does MORE THAN HALF the effort. [place] lifts or holds trunk or limbs and provides more than half the effort. 4-Tpwkareoe-bcrlsz does ALL the effort. Patient does none of the effort to complete the activity. Or, the assistance of 2 or more helpers is required for the patient to complete the activity. If activity was not attempted, code reason: 7-Patient Refused. 9-Not Applicable-not attempted and the patient did not perform the activity before the current illness, exacerbation or injury. 10-Not Attempted due to Environmental Limitations-(lack of equipment, weather restraints, etc.). 88-Not Attempted due to Medical Conditions or Safety Concerns. 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 2=Patient will verbalize/demonstrate understanding of assistive devices/modifi cations for ADL. 3=Patient will improve strength/tolerance for activity to enable patient to perform ADL's. OT Education/Plan Problem List/Assessment Assessment: Decreased Activ Tolerance, Decreased Safety Aware, Impaired Funct Balance, Impaired Self-Care Skills Pt is currently at his PLOF with ADLs, but per physician orders and rehab p rocess, OT will see pt for continued UE strengthening, activity tolerance, and increasing level of independence with ADLs and functional mobility. Discharge Recommendations Plan/Recommendations: Continue POC Treatment Plan/Plan of Care Patient would benefit from OT for education, treatment and training to promote independence in ADL's, mobility, safety and/or upper extremity function for ADL's. Plan of Care: ADL Retraining, Functional Mobility, Group Exercise/Act as Ind, UE Funct Exercise/Act Treatment Duration: Feb 08, 2022 Frequency: At least 5 of 7 days/Wk (IRF) Estimated Hrs Per Day: 1.5 hours per day Agreement: Yes Rehab Potential: Fair Time/GCodes Start Time: 09:00 Stop Time: 10:00 Total Time Billed (hr/min): 60 Billed Treatment Time 1 visit-ADL 4 (60 min) SALIMA YIN Jan 18, 2022 10:18
--- NOTE | 2022-01-18 10:41 | Physical Therapy Daily Note ---
PT Daily Note-Current Subjective Patient in recliner pre tx, agrees to PT, has no complaints of pain. Pain Section J - Health Conditions 1. Rarely or not at all 2. Occasionally 3. Frequently 4. Almost constantly 8. Unable to answer Pain Effect on Sleep: 1 Pain Interference with Therapy: 1 Pain Interference w/Day-to-Day: 1 Appearance Patient in recliner post tx with nurse call, phone, tray, all needs met. Mental Status Patient Orientation: Person, Place, Situation Transfers SCALE: Activities may be completed with or without assistive devices. 9-Kcknulaxee-uocpfzz completes the activity by him/herself with no assistance from a helper. 5-Set-up or Clean-up Assistance-helper sets up or cleans up; patient completes activity. [place] assists only prior to or following the activity. 4-Supervision or Touching Assistance-helper provides verbal cues and/or touching/steadying and/or contact guard assistance as patient completes activ ity. Assistance may be provided throughout the activity or intermittently. 3-Partial/Moderate Assistance-helper does LESS THAN HALF the effort. [place] lifts, holds or supports trunk or limbs, but provides less than half the effort. 2-Substantial/Maximal Assistance-helper does MORE THAN HALF the effort. [place] lifts or holds trunk or limbs and provides more than half the effort. 6-Rtjtnissp-ritueq does ALL the effort. Patient does none of the effort to complete the activity. Or, the assistance of 2 or more helpers is required for the patient to complete the activity. If activity was not attempted, code reason: 7-Patient Refused. 9-Not Applicable-not attempted and the patient did not perform the activity before the current illness, exacerbation or injury. 10-Not Attempted due to Environmental Limitations-(lack of equipment, weather restraints, etc.). 88-Not Attempted due to Medical Conditions or Safety Concerns. Sit to Stand (QC): 4 Chair/Nos-fw-Nwfnb Xfer(QC): 4 CGA for sit to stand now, however he may need min assist standing from lower surfaces Gait Training Distance: 60', 40'x2 Walk 10 feet (QC): 4 Walk 50 ft with 2 Turns(QC): 4 Gait Persons Needed: 1 Gait Assistive Device: FWW slow ambulation, shaky legs at the end of each trip, slight knee buckling on the right side Wheelchair Training Does the Pt Use a Wheelchair?: Yes Wheel 50 ft with 2 turns (QC): 4 Type of Wheelchair: Manual 120'x2, SBA, needed several rest breaks Exercises sit to stands from elevated therapy table 2 sets of 5 Treatments transfers, ambulation, strengthening, WC mobility Assessment Current Status: Fair Progress improved sit to stand PT Short Term Goals Short Term Goals Time Frame: Jan 23, 2022 Roll Left & Right: 6 Sit to lyin Lying to sitting on side of be: 5 Sit to stand: 4 Chair/yva-yd-nqrha transfer: 4 Walk 10 feet: 4 PT Retirement Goals Retirement Goals PT Wire Frame 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 Maker Goals Time Frame: Feb 06, 2022 Roll Left & Right (QC): 6 Sit to Lying (QC): 6 Lying-Sitting on Side/Bed(QC): 6 Sit to Stand (QC): 5 Chair/Vbv-vr-Zygho Xfer(QC): 5 Toilet Transfer (QC): 5 Car Transfer (QC): 5 Does the Patient Walk: Yes Walk 10 feet (QC): 5 Walk 50ft with 2 Turns (QC): 5 Walk 150 ft (QC): 88 Walking 10ft on Uneven Surface: 5 1 Step (curb) (QC): 3 4 Steps (QC): 88 12 Steps (QC): 88 Picking up an Object (QC): 5 Wheel 50 feet with 2 turns (QC: 6 Wheel 150 feet: 6 PT Plan Problem List Problem List: Activity Tolerance, Functional Strength, Safety, Balance, Gait, Transfer, Bed Mobility, ROM Treatment/Plan Treatment Plan: Continue Plan of Care Treatment Plan: Bed Mobility, Education, Functional Activity Rani, Functional Strength, Group Therapy, Gait, Safety, Therapeutic Exercise, Transfers Treatment Duration: Feb 06, 2022 Frequency: At least 5 of 7 days/Wk (IRF) Estimated Hrs Per Day: 1.5 hours per day Patient and/or Family Agrees t: Yes Safety Risks/Education Patient Education: Gait Training, Transfer Techniques, Correct Positioning, W/C Management, Safety Issues Teaching Recipient: Patient Teaching Methods: Demonstration, Discussion Response to Teaching: Reinforcement Needed Time/GCodes Time In: 1000 Time Out: 1045 Total Billed Treatment Time: 45 Total Billed Treatment 1 visit FA 45' KILLIAN VAUGHN PT Jan 18, 2022 10:41
[2022-01-18] MEDS: RT--FLUTICASONE/SALMETEROL 232-14 (AIRDUO RespiCLICK) IH SCH ×2 (12:27→20:46)
[2022-01-18] MEDS: UMECLIDINIUM BROMIDE (INCRUSE ELLIPTA) 7'S IH SCH (12:27)
--- NOTE | 2022-01-18 12:43 | Occupational Ther Daily Note ---
OT Current Status-Daily Note Subjective Pt alert, sitting in recliner. Pt agrees to therapy. No c/o pain. Mental Status/Objective Patient Orientation: Person, Place, Time, Situation Attachments: IV Acute change in mental status: 0 Inattention: 0 Disorganized thinkin Altered level of consciousness: 0 ADL-Treatment Therapy Code Descriptions/Definitions Functional [place] Measure: 0=Not Assessed/NA 4=Minimal Assistance 1=Total Assistance 5=Supervision or Setup 2=Maximal Assistance 6=Modified [place] 3=Moderate Assistance 7=Complete IndependenceSCALE: Activities may be completed with or without assistive devices. 3-Rhyonvnuog-rzzlqda completes the activity by him/herself with no assistance from a helper. 5-Set-up or Clean-up Assistance-helper sets up or cleans up; patient completes activity. [place] assists only prior to or following the activity. 4-Supervision or Touching Assistance-helper provides verbal cues and/or touching/steadying and/or contact guard assistance as patient completes activity. Assistance may be provided throughout the activity or intermittently. 3-Partial/Moderate Assistance-helper does LESS THAN HALF the effort. [place] lifts, holds or supports trunk or limbs, but provides less than half the effort. 2-Substantial/Maximal Assistance-helper does MORE THAN HALF the effort. [place] lifts or holds trunk or limbs and provides more than half the effort. 4-Yqfndocbi-gdkyni does ALL the effort. Patient does none of the effort to complete the activity. Or, the assistance of 2 or more helpers is required for the patient to complete the activity. If activity was not attempted, code reason: 7-Patient Refused. 9-Not Applicable-not attempted and the patient did not perform the activity before the current illness, exacerbation or injury. 10-Not Attempted due to Environmental Limitations-(lack of equipment, weather restraints, etc.). 88-Not Attempted due to Medical Conditions or Safety Concerns. Other Treatment Pt participated in a B UE gross/fine motor task to increase strength and activity tolerance for daily functional tasks. 1# wt attached to B wrists while reaching, pinching and grasping small items then placing in designated areas. Pt tolerated well and was able to focus on task without difficulty. and family entered room during session. stated that grabbars and hand held shower has been installed at pt's home. has placed a BSC in shower stall so pt will be able to complete shower when home. is happy with pt's progress. After session, pt sitting in recliner with call light/phone in reach. Family in room. All needs met in room. OT Electrical Design Technician Goals Electrical Design Technician Goals Time Frame: Feb 08, 2022 Acute change in mental status: 0 Inattention: 0 Disorganized thinkin Altered level of consciousness: 0 Eating (QC): 6 Oral Hygiene (QC): 10 Toileting Hygiene (QC): 6 Shower/Bathe Self (QC): 6 Upper Body Dressing (QC): 5 Lower Body Dressing (QC): 5 On/Off Footwear (QC): 5 Additional Goals: 1-Demonstrate ADL Tasks, 2-Verbalize Understanding, 3- ImproveStrength/Rani 1=Demonstrate adherence to instructed precautions during ADL tasks. 2=Patient will verbalize/demonstrate understanding of assistive devices/modific ations for ADL. 3=Patient will improve strength/tolerance for activity to enable patient to perform ADL's. OT Education/Plan Problem List/Assessment Assessment: Decreased Activ Tolerance, Decreased UE Strength Pt is currently at his PLOF with ADLs, but per physician orders and rehab process, OT will see pt for continued UE strengthening, activity tolerance, and increasing level of independence with ADLs and functional mobility. Discharge Recommendations Plan/Recommendations: Continue POC Treatment Plan/Plan of Care Patient would benefit from OT for education, treatment and training to promote independence in ADL's, mobility, safety and/or upper extremity function for ADL's. Plan of Care: ADL Retraining, Functional Mobility, Group Exercise/Act as Ind, UE Funct Exercise/Act Treatment Duration: Feb 08, 2022 Frequency: At least 5 of 7 days/Wk (IRF) Estimated Hrs Per Day: 1.5 hours per day Agreement: Yes Rehab Potential: Fair Time/GCodes Start Time: 11:30 Stop Time: 12:00 Total Time Billed (hr/min): 30 Billed Treatment Time 1 visit-EX 2 (30 min) SALIMA YIN Jan 18, 2022 12:43
--- NOTE | 2022-01-18 14:32 | Physical Therapy Daily Note ---
PT Daily Note-Current Subjective Patient in recliner pre tx, agrees to PT, has no complaints of pain. Pain Section J - Health Conditions 1. Rarely or not at all 2. Occasionally 3. Frequently 4. Almost constantly 8. Unable to answer Pain Effect on Sleep: 1 Pain Interference with Therapy: 1 Pain Interference w/Day-to-Day: 1 Appearance Patient in recliner post tx with nurse call, phone, tray, all needs met. Mental Status Patient Orientation: Person, Place, Situation Transfers SCALE: Activities may be completed with or without assistive devices. 3-Ftrifccpuz-wydlaih completes the activity by him/herself with no assistance from a helper. 5-Set-up or Clean-up Assistance-helper sets up or cleans up; patient completes activity. [place] assists only prior to or following the activity. 4-Supervision or Touching Assistance-helper provides verbal cues and/or touching/steadying and/or contact guard assistance as patient completes activ ity. Assistance may be provided throughout the activity or intermittently. 3-Partial/Moderate Assistance-helper does LESS THAN HALF the effort. [place] lifts, holds or supports trunk or limbs, but provides less than half the effort. 2-Substantial/Maximal Assistance-helper does MORE THAN HALF the effort. [place] lifts or holds trunk or limbs and provides more than half the effort. 9-Ihjqoweic-ykndss does ALL the effort. Patient does none of the effort to complete the activity. Or, the assistance of 2 or more helpers is required for the patient to complete the activity. If activity was not attempted, code reason: 7-Patient Refused. 9-Not Applicable-not attempted and the patient did not perform the activity before the current illness, exacerbation or injury. 10-Not Attempted due to Environmental Limitations-(lack of equipment, weather restraints, etc.). 88-Not Attempted due to Medical Conditions or Safety Concerns. Sit to Stand (QC): 3 Chair/Dob-oq-Spvgs Xfer(QC): 4 Patient needs min assist to stand from lower surfaces. Wheelchair Training Does the Pt Use a Wheelchair?: Yes Wheel 50 ft with 2 turns (QC): 4 Type of Wheelchair: Manual 120'x2, one rest break each way Exercises NuStep Minutes: 15 NuStep Workload: 5 Treatments transfers, WC mobility, functional strengthening Assessment Current Status: Fair Progress improved sit to stand and transfers PT Short Term Goals Short Term Goals Time Frame: Jan 23, 2022 Roll Left & Right: 6 Sit to lyin Lying to sitting on side of be: 5 Sit to stand: 4 Chair/mkl-vw-ymafk transfer: 4 Walk 10 feet: 4 PT Intermediate Goals Bilingual Student Tutor Goals PT Intermediate Goals Time Frame: Feb 06, 2022 Roll Left & Right (QC): 6 Sit to Lying (QC): 6 Lying-Sitting on Side/Bed(QC): 6 Sit to Stand (QC): 5 Chair/Cte-wp-Sbazd Xfer(QC): 5 Toilet Transfer (QC): 5 Car Transfer (QC): 5 Does the Patient Walk: Yes Walk 10 feet (QC): 5 Walk 50ft with 2 Turns (QC): 5 Walk 150 ft (QC): 88 Walking 10ft on Uneven Surface: 5 1 Step (curb) (QC): 3 4 Steps (QC): 88 12 Steps (QC): 88 Picking up an Object (QC): 5 Wheel 50 feet with 2 turns (QC: 6 Wheel 150 feet: 6 PT Plan Problem List Problem List: Activity Tolerance, Functional Strength, Safety, Balance, Gait, Transfer, Bed Mobility, ROM Treatment/Plan Treatment Plan: Continue Plan of Care Treatment Plan: Bed Mobility, Education, Functional Activity Rani, Functional Strength, Group Therapy, Gait, Safety, Therapeutic Exercise, Transfers Treatment Duration: Feb 06, 2022 Frequency: At least 5 of 7 days/Wk (IRF) Estimated Hrs Per Day: 1.5 hours per day Patient and/or Family Agrees t: Yes Safety Risks/Education Patient Education: Transfer Techniques, Correct Positioning, W/C Management, Safety Issues Teaching Recipient: Patient Teaching Methods: Demonstration, Discussion Response to Teaching: Reinforcement Needed Time/GCodes Time In: 1345 Time Out: 1430 Total Billed Treatment Time: 45 Total Billed Treatment 1 visit EX 15' FA 30' KILLIAN VAUGHN PT Jan 18, 2022 14:32
--- NOTE | 2022-01-18 15:02 | Progress Note - Cardiology ---
Cardiology SOAP Progress Note Subjective: No cp or palp or syncope No shortness of breath at rest No n/v Gen malaise and weakness No focal weakness Objective: I&O/Vital Signs 01/18/22 07:55 Temp 35.6 Pulse 70 Resp 18 B/P (MAP) 124/57 (79) Pulse Ox 93 O2 Delivery Room Air Constitutional: AAO x 3, well-developed, well-nourished Respiratory: No accessory muscle use; other (good, bilat air entry) Cardiovascular: regular rate-rhythm, S1 and S2, systolic murmur (soft YARON at card base) Gastrointestional: tender (mild epigastic tenderness), soft; No guarding, No rebound; audible bowel sounds Extremities: No clubbing, No cyanosis, No significant edema Neurologic/Psychiatric: oriented x 3, other (moves all limbs equally) Skin: No rash, No ulcerations Results/Procedures: Labs Laboratory Tests 01/17/22 15:45: Troponin I 0.045H 01/17/22 20:42: Glucometer 109 01/18/22 05:31: Glucometer 58*L 01/18/22 06:00: Glucometer 75 Laboratory Tests 01/17/22 05:05 A/P: Assessment: Nonspecific chest discomfort - 01/17/22 - ECG during the discomfort showed paced atrial rhythm and [place] QRS without any evidence of ischemia/NE - serial troponin minimally elevated and flat - etiology undetermined C-diff and pseudomonas UTI - Dr De Dios managing Chronic poor balance of undetermined etiology - unchanged Chronic shortness of breath with exertion - Echocardiogram of 06-08-20. LVEF 60-65%. Grade 2 diastolic dysfunction. Mild MR. Mild to mod TR. PASP 50-55mmHg H/o dual ch perm pacemaker ([employer]) - implanted for symptomatic bradycardia in Nov [address] Brooks in [place], [place]. - gen change in late August 2020 - device functioning normally per interrogation of 11-07-21 and on ECG of 01/17/22 S/p TAVR - ([employer] Model [id number], Sr no [id number]) on 12/24/19 at [place], [place] H/o SVT and A Fib/Fl - stated to have been treated with ablation in October [address] [facility] in [place], [place] - chronic apixaban anticoagulation CAD - H/o cor stents in Mar [address] [facility]. - MPI of 01-16-21 No evidence of any significant myocardial ischemia or i nfarction on this study. Normal regional wall motion. Normal global left ventricular systolic function with a calculated ejection fraction of 71%. COPD - managed by PCP DM II - managed by PCP Obesity - with BMI approx 38.5 and obesity-hypoventilation and MONISHA Medication Allergies - (per pt report): Anaphylaxis for penicillin and phenergan - bronchospasm with sotalol and rozarem Opthamology - H/o bilateral cataract surgery and lens implants L-sided, dry, macular degen Mild hearing loss - unchanged Carotid dz - There appears to be considerable plaque and moderate stenosis of the R common carotid and mild to moderate stenosis of the R internal carotid. Approximately 50% L internal carotid artery stenosis per u/s of Feb 23, 2020 - Carotid u/s of 07-03-21 shows approx 60-79% L ICA and approx 50% R ICA stenosis Chronic, intermittent leg discomfort - Segmentals pressure of Feb 23, 2020 showed no evidence of any signif blood flow impairment to the distal arterial circulation of the lower limbs. Prox atherosclerosis is suggested. - No c/o claudication Plan: * No distinct evidence of ACS * Symptoms relieved Tylenol and Pepcid. Continue scheduled Pepcid and prn Tyleno l * Monitor labs, from time to time MERCEDES VAZQUEZ MD FACP FAC CCDS Jan 18, 2022 15:02
[2022-01-18] MEDS: ASPIRIN E.C. 81 MG (ECOTRIN) TAB PO SCH (20:09)
[2022-01-18 20:23] VITALS: BP 129/68
[2022-01-18] MEDS: LATANOPROST 0.005% (XALATAN) OPHTH SOLN 2.5 ML OU SCH (22:27)
[2022-01-19] MEDS: CEFEPIME 1,000 MG/NS 50 ML IVPB IV SCH ×8 (04:39→23:31)
[2022-01-19] MEDS: RT--FLUTICASONE/SALMETEROL 232-14 (AIRDUO RespiCLICK) IH SCH ×2 (07:10→20:57)
[2022-01-19] MEDS: UMECLIDINIUM BROMIDE (INCRUSE ELLIPTA) 7'S IH SCH (07:12)
--- NOTE | 2022-01-19 08:02 | PM&R Progress Note ---
Subjective HPI/CC On Admission Date Seen by Provider: Jan 19, 2022 Time Seen by Provider: 11:30 Subjective/Events-last exam 01/19/2022: Patient much improved and granddaughters at the bedside No more loose stools Pseudomonas treatment tolerated 01/18/2022: Improved status Less diarrhea Vanc PO tolerated Cefepime IV 01/17/2022: Patient having a good day Less diarrhea Vancomycin p.o. tolerated for C. difficile colitis Cefepime for Pseudomonas UTI maintained No major concerns at this time Had an episode of chest pain Dr. Sparrow managed Review of Systems General: Fatigue, Malaise Objective Exam Vital Signs Vital Signs Date Time Temp Pulse Resp B/P (MAP) Pulse Ox O2 Delivery O2 Flow Rate FiO2 01/19/22 20:57 95 Room Air 01/19/22 20:43 36.4 71 20 146/72 (96) Capillary Refill : General Appearance: No Apparent Distress, WD/WN, Chronically ill, Obese HEENT: PERRL/EOMI, Normal ENT Inspection, Pharynx Normal Neck: Full Range of Motion, Normal Inspection, Non Tender, Supple, Carotid Bruit Respiratory: Chest Non Tender, Lungs Clear, Normal Breath Sounds, No Accessory Muscle Use, No Respiratory Distress Cardiovascular: Regular Rate, Rhythm, No Edema, No Gallop, No JVD, No Murmur, Normal Peripheral Pulses Gastrointestinal: Normal Bowel Sounds, No Organomegaly, No Pulsatile Mass, Non Tender, Soft Back: Normal Inspection, No CVA Tenderness, No Vertebral Tenderness Extremity: Normal Capillary Refill, Normal Inspection, Normal Range of Motion, Non Tender, No Calf Tenderness, No Pedal Edema Neurologic/Psychiatric: Alert, Oriented x3, No Motor/Sensory Deficits, rehabilitation attendant II- XII Norm as Tested, Depressed Affect, Motor Weakness (generalized) Skin: Normal Color, Warm/Dry Lymphatic: No Adenopathy Results/Procedures Lab Patient resulted labs reviewed. FIM Transfers Therapy Code Descriptions/Definitions Functional [place] Measure: 0=Not Assessed/NA 4=Minimal Assistance 1=Total Assistance 5=Supervision or Setup 2=Maximal Assistance 6=Modified [place] 3=Moderate Assistance 7=Complete IndependenceSCALE: Activities may be completed with or without assistive devices. 0-Zdrjxdsiqu-yebxwff completes the activity by him/herself with no assistance from a helper. 5-Set-up or Clean-up Assistance-helper sets up or cleans up; patient completes activity. [place] assists only prior to or following the activity. 4-Supervision or Touching Assistance-helper provides verbal cues and/or touching/steadying and/or contact guard assistance as patient completes act ivity. Assistance may be provided throughout the activity or intermittently. 3-Partial/Moderate Assistance-helper does LESS THAN HALF the effort. [place] lifts, holds or supports trunk or limbs, but provides less than half the effort. 2-Substantial/Maximal Assistance-helper does MORE THAN HALF the effort. [place] lifts or holds trunk or limbs and provides more than half the effort. 0-Deerwyyre-rmouci does ALL the effort. Patient does none of the effort to complete the activity. Or, the assistance of 2 or more helpers is required for the patient to complete the activity. If activity was not attempted, code reason: 7-Patient Refused. 9-Not Applicable-not attempted and the patient did not perform the activity before the current illness, exacerbation or injury. 10-Not Attempted due to Environmental Limitations-(lack of equipment, weather restraints, etc.). 88-Not Attempted due to Medical Conditions or Safety Concerns. Roll Left to Right (QC): 6 Sit to Lying (QC): 4 Sit to Stand (QC): 3 Chair/Msc-zw-Oufnj Xfer(QC): 4 Car Transfer (QC): 4 Gait Training Does the Patient Walk?: Yes Distance: 60', 40'x2 Walk 10 feet (QC): 4 Walk 50 ft with 2 Turns(QC): 4 Walk 150 ft (QC): 88 Walking 10ft/uneven surface-QC: 3 Gait Persons Needed: 1 Gait Assistive Device: FWW Wheelchair Training Does the Pt Use a Wheelchair?: Yes Distance: 120'x2 Wheel 50 ft with 2 turns (QC): 4 Wheel 150 ft (QC): 4 Type of Wheelchair: Manual Stair Training 1 Step (curb) (QC): 88 4 Steps (QC): 88 12 Steps (QC): 88 Balance Picking up an Object (QC): 4 (CGA using a pharmacy coordinator) ADL-Treatment Eating (QC): 6 (Per clinical judgement) Oral Hygiene (QC): 7 Bathing Location: L Arm, R Arm, L Upper Leg, R Upper Leg, L Lower Leg (including foot), R Lower Leg (including foot), Chest, Abdomen, Buttocks, Perineal Area Shower/Bathe Self (QC): 4 Upper Body Dressing (QC): 5 Lower Body Dressing (QC): 4 On/Off Footwear (QC): 5 Toileting Hygiene (QC): 3 Toilet Transfer (QC): 4 Assessment/Plan Assessment and Plan Assess & Plan/Chief Complaint Assessment: C diff colitis 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 difficile colitis treatment Maintain cefepime for Pseudomonas UTI 01/18/2022: Vanc PO 01/19/2022: Supportive care (1) C. difficile colitis Status: Acute EDEN FORDE DO Jan 19, 2022 08:02
[2022-01-19 08:19] VITALS: BP 112/63
[2022-01-19] MEDS: CALCIUM CARB + VIT D 600 MG (CALCARB + D) TAB PO SCH (08:22)
[2022-01-19] MEDS: SERTRALINE 50 MG (ZOLOFT) TABLET PO SCH (08:22)
[2022-01-19] MEDS: meTOprolol TARTRATE 50 MG (LOPRESSOR) TAB PO SCH ×2 (08:22→21:03)
[2022-01-19] MEDS: FAMOTIDINE 20 MG (PEPCID) TABLET PO SCH (08:22)
[2022-01-19] MEDS: EMPAGLIFLOZIN 10 MG TABLET (JARDIANCE) PO SCH (08:22)
[2022-01-19] MEDS: TAMSULOSIN 0.4 MG (FLOMAX) CAP PO SCH ×2 (08:22→21:03)
[2022-01-19] MEDS: FUROSEMIDE 20 MG (LASIX) TAB PO SCH (08:22)
[2022-01-19] MEDS: LOSARTAN 25 MG (COZAAR) TAB PO SCH (08:23)
[2022-01-19] MEDS: VANCOMYCIN 125 MG CAPSULE PO SCH ×4 (08:23→21:03)
[2022-01-19] MEDS: KCL 8 MEQ (MICRO K) TABLET PO SCH (08:23)
[2022-01-19] MEDS: APIXABAN 5 MG (ELIQUIS) TABLET PO SCH ×2 (08:23→21:03)
[2022-01-19] MEDS: INSULIN DEGLUDEC SQ SCH (08:26)
--- NOTE | 2022-01-19 11:24 | Physical Therapy Daily Note ---
PT Daily Note-Current Subjective Pt in recliner upon arrival and agrees to PT. Pt has no c/o pain this date. Pain Section J - Health Conditions 1. Rarely or not at all 2. Occasionally 3. Frequently 4. Almost constantly 8. Unable to answer Pain Effect on Sleep: 1 Pain Interference with Therapy: 1 Pain Interference w/Day-to-Day: 1 Mental Status Patient Orientation: Person, Place, Time, Situation Transfers SCALE: Activities may be completed with or without assistive devices. 9-Cocphpjzfy-vzpmwop completes the activity by him/herself with no assistance from a helper. 5-Set-up or Clean-up Assistance-helper sets up or cleans up; patient completes activity. [place] assists only prior to or following the activity. 4-Supervision or Touching Assistance-helper provides verbal cues and/or touching/steadying and/or contact guard assistance as patient completes activity. Assistance may be provided throughout the activity or intermittently. 3-Partial/Moderate Assistance-helper does LESS THAN HALF the effort. [place] lifts, holds or supports trunk or limbs, but provides less than half the effort. 2-Substantial/Maximal Assistance-helper does MORE THAN HALF the effort. [place] lifts or holds trunk or limbs and provides more than half the effort. 9-Pdnoxqqgp-ekdlpw does ALL the effort. Patient does none of the effort to complete the activity. Or, the assistance of 2 or more helpers is required for the patient to complete the activity. If activity was not attempted, code reason: 7-Patient Refused. 9-Not Applicable-not attempted and the patient did not perform the activity before the current illness, exacerbation or injury. 10-Not Attempted due to Environmental Limitations-(lack of equipment, weather restraints, etc.). 88-Not Attempted due to Medical Conditions or Safety Concerns. Sit to Stand (QC): 4 Gait Training Does the Patient Walk?: Yes Distance: 150' x 2 Walk 10 feet (QC): 4 Walk 50 ft with 2 Turns(QC): 4 Walk 150 ft (QC): 4 Gait Persons Needed: 1 Gait Assistive Device: FWW Exercises NuStep Minutes: 5 NuStep Workload: 5 Treatments Pt amb from room to therapy gym and TFs to nustep and then following nustep pt amb back to room and TFs to recliner. All needs met and call light nearby as PT departs. Assessment Current Status: Good Progress Pt required verbal and tactile cues while performing TFs and requried maxA for foot placement into nustep. Pt gets SOB following amb. PT Short Term Goals Short Term Goals Time Frame: Jan 23, 2022 Roll Left & Right: 6 Sit to lyin Lying to sitting on side of be: 5 Sit to stand: 4 Chair/wde-mu-thlge transfer: 4 Walk 10 feet: 4 PT Prison Goals Prison Goals PT Reproduction Specialist Goals Time Frame: Feb 06, 2022 Roll Left & Right (QC): 6 Sit to Lying (QC): 6 Lying-Sitting on Side/Bed(QC): 6 Sit to Stand (QC): 5 Chair/Beh-tb-Riapm Xfer(QC): 5 Toilet Transfer (QC): 5 Car Transfer (QC): 5 Does the Patient Walk: Yes Walk 10 feet (QC): 5 Walk 50ft with 2 Turns (QC): 5 Walk 150 ft (QC): 88 Walking 10ft on Uneven Surface: 5 1 Step (curb) (QC): 3 4 Steps (QC): 88 12 Steps (QC): 88 Picking up an Object (QC): 5 Wheel 50 feet with 2 turns (QC: 6 Wheel 150 feet: 6 PT Plan Problem List Problem List: Activity Tolerance, Functional Strength, Safety Treatment/Plan Treatment Plan: Continue Plan of Care Treatment Plan: Bed Mobility, Education, Functional Activity Rani, Functional Strength, Group Therapy, Gait, Safety, Therapeutic Exercise, Transfers Treatment Duration: Feb 06, 2022 Frequency: At least 5 of 7 days/Wk (IRF) Estimated Hrs Per Day: 1.5 hours per day Patient and/or Family Agrees t: Yes Safety Risks/Education Patient Education: Transfer Techniques Teaching Recipient: Patient Teaching Methods: Discussion Response to Teaching: Return Demonstration Time/GCodes Time In: 1010 Time Out: 1025 Total Billed Treatment Time: 15 Total Billed Treatment 1, Ex JOSETAYE INFECTION CONTROL NURSE Jan 19, 2022 11:24
[2022-01-19 20:43] VITALS: BP 146/72
[2022-01-19] MEDS: ASPIRIN E.C. 81 MG (ECOTRIN) TAB PO SCH (21:03)
[2022-01-19] MEDS: LATANOPROST 0.005% (XALATAN) OPHTH SOLN 2.5 ML OU SCH (21:03)
[2022-01-19] MEDS: MICONAZOLE 2% POWDER (DESENEX AF) 90 GM TOP SCH (21:11)
[2022-01-20] MEDS: CEFEPIME 1,000 MG/NS 50 ML IVPB IV SCH ×8 (05:41→23:35)
--- NOTE | 2022-01-20 07:04 | PM&R Progress Note ---
Subjective HPI/CC On Admission Date Seen by Provider: Jan 20, 2022 Time Seen by Provider: 12:00 Subjective/Events-last exam 01/20/2022: Improved status No pain Less loose stools concerned about subtle confusion and I explained his risk factors of out of home and routine and recent illness and likely dementia early signs due to advanced age 86 01/19/2022: Patient much improved and granddaughters at the bedside No more loose stools Pseudomonas treatment tolerated 01/18/2022: Improved status Less diarrhea Vanc PO tolerated Cefepime IV 01/17/2022: Patient having a good day Less diarrhea Vancomycin p.o. tolerated for C. difficile colitis Cefepime for Pseudomonas UTI maintained No major concerns at this time Had an episode of chest pain Dr. Sparrow managed Review of Systems General: Fatigue, Malaise Objective Exam Vital Signs Vital Signs Date Time Temp Pulse Resp B/P (MAP) Pulse Ox O2 Delivery O2 Flow Rate FiO2 01/20/22 09:00 Room Air 01/20/22 08:13 97 01/20/22 07:30 36.3 69 18 132/82 (99) Capillary Refill : General Appearance: No Apparent Distress, WD/WN, Chronically ill, Obese HEENT: PERRL/EOMI, Normal ENT Inspection, Pharynx Normal Neck: Full Range of Motion, Normal Inspection, Non Tender, Supple, Carotid Bruit Respiratory: Chest Non Tender, Lungs Clear, Normal Breath Sounds, No Accessory Muscle Use, No Respiratory Distress Cardiovascular: Regular Rate, Rhythm, No Edema, No Gallop, No JVD, No Murmur, Normal Peripheral Pulses Gastrointestinal: Normal Bowel Sounds, No Organomegaly, No Pulsatile Mass, Non Tender, Soft Back: Normal Inspection, No CVA Tenderness, No Vertebral Tenderness Extremity: Normal Capillary Refill, Normal Inspection, Normal Range of Motion, Non Tender, No Calf Tenderness, No Pedal Edema Neurologic/Psychiatric: Alert, Oriented x3, No Motor/Sensory Deficits, window dresser II- XII Norm as Tested, Depressed Affect, Motor Weakness (generalized) Skin: Normal Color, Warm/Dry Lymphatic: No Adenopathy Results/Procedures Lab Laboratory Tests 01/20/22 07:35 Patient resulted labs reviewed. FIM Transfers Therapy Code Descriptions/Definitions Functional [place] Measure: 0=Not Assessed/NA 4=Minimal Assistance 1=Total Assistance 5=Supervision or Setup 2=Maximal Assistance 6=Modified [place] 3=Moderate Assistance 7=Complete IndependenceSCALE: Activities may be completed with or without assistive devices. 3-Kiatwletdk-egrjdcn completes the activity by him/herself with no assistance from a helper. 5-Set-up or Clean-up Assistance-helper sets up or cleans up; patient completes activity. [place] assists only prior to or following the activity. 4-Supervision or Touching Assistance-helper provides verbal cues and/or touching/steadying and/or contact guard assistance as patient completes activity. Assistance may be provided throughout the activity or intermittently. 3-Partial/Moderate Assistance-helper does LESS THAN HALF the effort. [place] lifts, holds or supports trunk or limbs, but provides less than half the effort. 2-Substantial/Maximal Assistance-helper does MORE THAN HALF the effort. [place] lifts or holds trunk or limbs and provides more than half the effort. 4-Vulqoxmsq-rsnrzc does ALL the effort. Patient does none of the effort to complete the activity. Or, the assistance of 2 or more helpers is required for the patient to complete the activity. If activity was not attempted, code reason: 7-Patient Refused. 9-Not Applicable-not attempted and the patient did not perform the activity before the current illness, exacerbation or injury. 10-Not Attempted due to Environmental Limitations-(lack of equipment, weather restraints, etc.). 88-Not Attempted due to Medical Conditions or Safety Concerns. Roll Left to Right (QC): 6 Sit to Lying (QC): 4 Sit to Stand (QC): 4 Chair/Ytt-mh-Mxfdg Xfer(QC): 4 Car Transfer (QC): 4 Gait Training Does the Patient Walk?: Yes Distance: 150' x 2 Walk 10 feet (QC): 4 Walk 50 ft with 2 Turns(QC): 4 Walk 150 ft (QC): 4 Walking 10ft/uneven surface-QC: 3 Gait Persons Needed: 1 Gait Assistive Device: FWW Wheelchair Training Does the Pt Use a Wheelchair?: Yes Distance: 120'x2 Wheel 50 ft with 2 turns (QC): 4 Wheel 150 ft (QC): 4 Type of Wheelchair: Manual Stair Training 1 Step (curb) (QC): 88 4 Steps (QC): 88 12 Steps (QC): 88 Balance Picking up an Object (QC): 4 (CGA using a jersey knitter) ADL-Treatment Eating (QC): 6 (Per clinical judgement) Oral Hygiene (QC): 7 Bathing Location: L Arm, R Arm, L Upper Leg, R Upper Leg, L Lower Leg (including foot), R Lower Leg (including foot), Chest, Abdomen, Buttocks, Perineal Area Shower/Bathe Self (QC): 4 Upper Body Dressing (QC): 5 Lower Body Dressing (QC): 4 On/Off Footwear (QC): 5 Toileting Hygiene (QC): 3 Toilet Transfer (QC): 4 Assessment/Plan Assessment and Plan Assess & Plan/Chief Complaint Assessment: C diff colitis 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 difficile colitis treatment Maintain cefepime for Pseudomonas UTI 01/18/2022: Vanc PO 01/19/2022: Supportive care 01/20/2022: Monitor closely (1) C. difficile colitis Status: Acute EDEN FORDE DO Jan 20, 2022 07:04
[2022-01-20 07:30] VITALS: BP 132/82
[2022-01-20 07:47] LABS: MEAN PLATELET VOLUME 11.5 fL (9.0-12.2); MONOCYTES # (AUTO) 0.6 10^3/uL (0.0-1.0)
[2022-01-20 07:49] LABS: BASOPHILS # (AUTO) 0.1 10^3/uL (0.0-0.1); BASOPHILS % (AUTO) 1 % (0-10); EOSINOPHILS # (AUTO) 0.3 10^3/uL (0.0-0.3); EOSINOPHILS % (AUTO) 3 % (0-10); HEMATOCRIT 34 % (40-54); HEMOGLOBIN 10.7 g/dL (13.3-17.7); LYMPHOCYTES # (AUTO) 1.9 10^3/uL (1.0-4.0); LYMPHOCYTES % (AUTO) 20 % (12-44); MEAN CORPUSCULAR HEMOGLOBIN 28 pg (25-34); MEAN CORPUSCULAR HGB CONC 31 g/dL (32-36); MEAN CORPUSCULAR VOLUME 89 fL (80-99); MONOCYTES % (AUTO) 6 % (0-12); NEUTROPHILS # (AUTO) 6.9 10^3/uL (1.8-7.8); NEUTROPHILS % (AUTO) 70 % (42-75); PLATELET COUNT 113 10^3/uL (130-400); WHITE BLOOD COUNT 9.8 10^3/uL (4.3-11.0)
[2022-01-20 07:58] LABS: CALCIUM 8.7 MG/DL (8.5-10.1)
[2022-01-20 07:59] LABS: TOTAL PROTEIN 5.1 GM/DL (6.4-8.2)
[2022-01-20 08:01] LABS: BILIRUBIN,TOTAL 0.5 MG/DL (0.1-1.0)
[2022-01-20 08:02] LABS: CREATININE SERUM 1.01 MG/DL (0.60-1.30)
[2022-01-20] MEDS: UMECLIDINIUM BROMIDE (INCRUSE ELLIPTA) 7'S IH SCH (08:12)
[2022-01-20] MEDS: RT--FLUTICASONE/SALMETEROL 232-14 (AIRDUO RespiCLICK) IH SCH ×2 (08:12→19:03)
[2022-01-20] MEDS: VANCOMYCIN 125 MG CAPSULE PO SCH ×4 (08:57→20:40)
[2022-01-20] MEDS: APIXABAN 5 MG (ELIQUIS) TABLET PO SCH ×2 (08:57→20:40)
[2022-01-20] MEDS: meTOprolol TARTRATE 50 MG (LOPRESSOR) TAB PO SCH ×2 (08:57→20:40)
[2022-01-20] MEDS: CALCIUM CARB + VIT D 600 MG (CALCARB + D) TAB PO SCH (08:57)
[2022-01-20] MEDS: TAMSULOSIN 0.4 MG (FLOMAX) CAP PO SCH ×2 (08:57→20:40)
[2022-01-20] MEDS: FUROSEMIDE 20 MG (LASIX) TAB PO SCH (08:57)
[2022-01-20] MEDS: KCL 8 MEQ (MICRO K) TABLET PO SCH (08:57)
[2022-01-20] MEDS: FAMOTIDINE 20 MG (PEPCID) TABLET PO SCH (08:57)
[2022-01-20] MEDS: LOSARTAN 25 MG (COZAAR) TAB PO SCH (08:57)
[2022-01-20] MEDS: SERTRALINE 50 MG (ZOLOFT) TABLET PO SCH (08:57)
[2022-01-20] MEDS: EMPAGLIFLOZIN 10 MG TABLET (JARDIANCE) PO SCH (08:57)
[2022-01-20] MEDS: INSULIN DEGLUDEC SQ SCH (09:00)
[2022-01-20] MEDS: MICONAZOLE 2% POWDER (DESENEX AF) 90 GM TOP SCH ×2 (13:41→20:39)
[2022-01-20 20:00] VITALS: BP 131/59
[2022-01-20] MEDS: LATANOPROST 0.005% (XALATAN) OPHTH SOLN 2.5 ML OU SCH (20:40)
[2022-01-20] MEDS: ASPIRIN E.C. 81 MG (ECOTRIN) TAB PO SCH (20:40)
--- NOTE | 2022-01-21 05:18 | PM&R Progress Note ---
Subjective HPI/CC On Admission Date Seen by Provider: Jan 21, 2022 Time Seen by Provider: 08:30 Subjective/Events-last exam 01/21/2022: No major issues Confusion is noted but is mild No more loose stools Completing cefepime treatment 01/20/2022: Improved status No pain Less loose stools concerned about subtle confusion and I explained his risk factors of out of home and routine and recent illness and likely dementia early signs due to advanced age 86 01/19/2022: Patient much improved and granddaughters at the bedside No more loose stools Pseudomonas treatment tolerated 01/18/2022: Improved status Less diarrhea Vanc PO tolerated Cefepime IV 01/17/2022: Patient having a good day Less diarrhea Vancomycin p.o. tolerated for C. difficile colitis Cefepime for Pseudomonas UTI maintained No major concerns at this time Had an episode of chest pain Dr. Sparrow managed Review of Systems General: Fatigue, Malaise Objective Exam Vital Signs Vital Signs Date Time Temp Pulse Resp B/P (MAP) Pulse Ox O2 Delivery O2 Flow Rate FiO2 01/21/22 22:05 97 Room Air 01/21/22 19:51 36.4 70 20 122/70 (87) Capillary Refill : General Appearance: No Apparent Distress, WD/WN, Chronically ill, Obese HEENT: PERRL/EOMI, Normal ENT Inspection, Pharynx Normal Neck: Full Range of Motion, Normal Inspection, Non Tender, Supple, Carotid Bruit Respiratory: Chest Non Tender, Lungs Clear, Normal Breath Sounds, No Accessory Muscle Use, No Respiratory Distress Cardiovascular: Regular Rate, Rhythm, No Edema, No Gallop, No JVD, No Murmur, Normal Peripheral Pulses Gastrointestinal: Normal Bowel Sounds, No Organomegaly, No Pulsatile Mass, Non Tender, Soft Back: Normal Inspection, No CVA Tenderness, No Vertebral Tenderness Extremity: Normal Capillary Refill, Normal Inspection, Normal Range of Motion, Non Tender, No Calf Tenderness, No Pedal Edema Neurologic/Psychiatric: Alert, Oriented x3, No Motor/Sensory Deficits, cheerleading coach II- XII Norm as Tested, Depressed Affect, Motor Weakness (generalized) Skin: Normal Color, Warm/Dry Lymphatic: No Adenopathy Results/Procedures Lab Laboratory Tests 01/21/22 05:35 Patient resulted labs reviewed. FIM Transfers Therapy Code Descriptions/Definitions Functional [place] Measure: 0=Not Assessed/NA 4=Minimal Assistance 1=Total Assistance 5=Supervision or Setup 2=Maximal Assistance 6=Modified [place] 3=Moderate Assistance 7=Complete IndependenceSCALE: Activities may be completed with or without assistive devices. 7-Kzuoqctjol-bjluokn completes the activity by him/herself with no assistance from a helper. 5-Set-up or Clean-up Assistance-helper sets up or cleans up; patient completes activity. [place] assists only prior to or following the activity. 4-Supervision or Touching Assistance-helper provides verbal cues and/or touching/steadying and/or contact guard assistance as patient completes activity. Assistance may be provided throughout the activity or intermittently. 3-Partial/Moderate Assistance-helper does LESS THAN HALF the effort. [place] lifts, holds or supports trunk or limbs, but provides less than half the effort. 2-Substantial/Maximal Assistance-helper does MORE THAN HALF the effort. [place] lifts or holds trunk or limbs and provides more than half the effort. 6-Xvpfafrcy-gcrebj does ALL the effort. Patient does none of the effort to complete the activity. Or, the assistance of 2 or more helpers is required for the patient to complete the activity. If activity was not attempted, code reason: 7-Patient Refused. 9-Not Applicable-not attempted and the patient did not perform the activity before the current illness, exacerbation or injury. 10-Not Attempted due to Environmental Limitations-(lack of equipment, weather restraints, etc.). 88-Not Attempted due to Medical Conditions or Safety Concerns. Roll Left to Right (QC): 6 Sit to Lying (QC): 4 Sit to Stand (QC): 4 Chair/Tcp-op-Tqspp Xfer(QC): 4 Car Transfer (QC): 4 Gait Training Does the Patient Walk?: Yes Distance: 150' x 2 Walk 10 feet (QC): 4 Walk 50 ft with 2 Turns(QC): 4 Walk 150 ft (QC): 4 Walking 10ft/uneven surface-QC: 3 Gait Persons Needed: 1 Gait Assistive Device: FWW Wheelchair Training Does the Pt Use a Wheelchair?: Yes Distance: 120'x2 Wheel 50 ft with 2 turns (QC): 4 Wheel 150 ft (QC): 4 Type of Wheelchair: Manual Stair Training 1 Step (curb) (QC): 88 4 Steps (QC): 88 12 Steps (QC): 88 Balance Picking up an Object (QC): 4 (CGA using a welder pipe making) ADL-Treatment Eating (QC): 6 (Per clinical judgement) Oral Hygiene (QC): 7 Bathing Location: L Arm, R Arm, L Upper Leg, R Upper Leg, L Lower Leg (including foot), R Lower Leg (including foot), Chest, Abdomen, Buttocks, Perineal Area Shower/Bathe Self (QC): 4 Upper Body Dressing (QC): 5 Lower Body Dressing (QC): 4 On/Off Footwear (QC): 5 Toileting Hygiene (QC): 3 Toilet Transfer (QC): 4 Assessment/Plan Assessment and Plan Assess & Plan/Chief Complaint Assessment: C diff colitis 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 difficile colitis treatment Maintain cefepime for Pseudomonas UTI 01/18/2022: Vanc PO 01/19/2022: Supportive care 01/20/2022: Monitor closely 01/21/2022: Complete vancomycin treatment Completed cefepime (1) C. difficile colitis Status: Acute EDEN FORDE DO Jan 21, 2022 05:18
[2022-01-21] MEDS: CEFEPIME 1,000 MG/NS 50 ML IVPB IV SCH ×4 (05:25→10:48)
[2022-01-21 05:50] LABS: BASOPHILS # (AUTO) 0.1 10^3/uL (0.0-0.1); BASOPHILS % (AUTO) 1 % (0-10)
[2022-01-21 05:52] LABS: EOSINOPHILS # (AUTO) 0.3 10^3/uL (0.0-0.3); EOSINOPHILS % (AUTO) 3 % (0-10); HEMATOCRIT 33 % (40-54); HEMOGLOBIN 10.7 g/dL (13.3-17.7); LYMPHOCYTES # (AUTO) 2.2 10^3/uL (1.0-4.0); LYMPHOCYTES % (AUTO) 21 % (12-44); MEAN CORPUSCULAR HEMOGLOBIN 29 pg (25-34); MEAN CORPUSCULAR HGB CONC 32 g/dL (32-36); MEAN CORPUSCULAR VOLUME 89 fL (80-99); MEAN PLATELET VOLUME 11.4 fL (9.0-12.2); MONOCYTES # (AUTO) 0.7 10^3/uL (0.0-1.0); MONOCYTES % (AUTO) 6 % (0-12); NEUTROPHILS # (AUTO) 7.3 10^3/uL (1.8-7.8); NEUTROPHILS % (AUTO) 69 % (42-75); PLATELET COUNT 110 10^3/uL (130-400); WHITE BLOOD COUNT 10.5 10^3/uL (4.3-11.0)
[2022-01-21 06:14] LABS: BILIRUBIN,TOTAL 0.5 MG/DL (0.1-1.0); CALCIUM 8.8 MG/DL (8.5-10.1); CREATININE SERUM 1.09 MG/DL (0.60-1.30); TOTAL PROTEIN 5.1 GM/DL (6.4-8.2)
[2022-01-21 07:39] VITALS: BP 131/49
[2022-01-21] MEDS: UMECLIDINIUM BROMIDE (INCRUSE ELLIPTA) 7'S IH SCH (07:47)
[2022-01-21] MEDS: RT--FLUTICASONE/SALMETEROL 232-14 (AIRDUO RespiCLICK) IH SCH ×2 (07:47→21:55)
[2022-01-21] MEDS: EMPAGLIFLOZIN 10 MG TABLET (JARDIANCE) PO SCH (08:27)
[2022-01-21] MEDS: CALCIUM CARB + VIT D 600 MG (CALCARB + D) TAB PO SCH (08:27)
[2022-01-21] MEDS: KCL 8 MEQ (MICRO K) TABLET PO SCH (08:27)
[2022-01-21] MEDS: VANCOMYCIN 125 MG CAPSULE PO SCH ×4 (08:27→20:34)
[2022-01-21] MEDS: meTOprolol TARTRATE 50 MG (LOPRESSOR) TAB PO SCH ×2 (08:27→20:34)
[2022-01-21] MEDS: FUROSEMIDE 20 MG (LASIX) TAB PO SCH (08:27)
[2022-01-21] MEDS: LOSARTAN 25 MG (COZAAR) TAB PO SCH (08:28)
[2022-01-21] MEDS: TAMSULOSIN 0.4 MG (FLOMAX) CAP PO SCH ×2 (08:28→20:35)
[2022-01-21] MEDS: SERTRALINE 50 MG (ZOLOFT) TABLET PO SCH (08:28)
[2022-01-21] MEDS: APIXABAN 5 MG (ELIQUIS) TABLET PO SCH ×2 (08:28→20:35)
[2022-01-21] MEDS: FAMOTIDINE 20 MG (PEPCID) TABLET PO SCH (08:28)
[2022-01-21] MEDS: MICONAZOLE 2% POWDER (DESENEX AF) 90 GM TOP SCH ×2 (08:29→20:35)
[2022-01-21] MEDS: INSULIN DEGLUDEC SQ SCH (08:29)
--- NOTE | 2022-01-21 09:36 | Physical Therapy Daily Note ---
PT Daily Note-Current Subjective Pt sitting in recliner upon arrival. Pt agrees to PT but declines need for BR. Pain Location: No Pain Reported Section J - Health Conditions 1. Rarely or not at all 2. Occasionally 3. Frequently 4. Almost constantly 8. Unable to answer Pain Effect on Sleep: 1 Pain Interference with Therapy: 1 Pain Interference w/Day-to-Day: 1 Mental Status Patient Orientation: Person, Place Transfers SCALE: Activities may be completed with or without assistive devices. 2-Tcpgybrvma-fidxzfm completes the activity by him/herself with no assistance from a helper. 5-Set-up or Clean-up Assistance-helper sets up or cleans up; patient completes activity. [place] assists only prior to or following the activity. 4-Supervision or Touching Assistance-helper provides verbal cues and/or to uching/steadying and/or contact guard assistance as patient completes activity. Assistance may be provided throughout the activity or intermittently. 3-Partial/Moderate Assistance-helper does LESS THAN HALF the effort. [place] lifts, holds or supports trunk or limbs, but provides less than half the effort. 2-Substantial/Maximal Assistance-helper does MORE THAN HALF the effort. [place] lifts or holds trunk or limbs and provides more than half the effort. 4-Piwyaicjd-eaartw does ALL the effort. Patient does none of the effort to complete the activity. Or, the assistance of 2 or more helpers is required for the patient to complete the activity. If activity was not attempted, code reason: 7-Patient Refused. 9-Not Applicable-not attempted and the patient did not perform the activity before the current illness, exacerbation or injury. 10-Not Attempted due to Environmental Limitations-(lack of equipment, weather restraints, etc.). 88-Not Attempted due to Medical Conditions or Safety Concerns. Sit to Stand (QC): 3 Chair/Pne-wb-Tdtsm Xfer(QC): 3 Weight Bearing Full Weight Bearing Full Weight Bearing Gait Training Does the Patient Walk?: Yes Distance: 60', 75', 20' Walk 10 feet (QC): 4 Walk 50 ft with 2 Turns(QC): 4 Walk 150 ft (QC): 4 Gait Persons Needed: 1 Gait Assistive Device: FWW RB needed due to fatigue. VC for sequencing at times. Wheelchair Training Does the Pt Use a Wheelchair?: Yes Wheel 50 ft with 2 turns (QC): 3 Type of Wheelchair: Manual Exercises Seated Therapy Exercises: Ankle pumps, Long arc quads, Hip flexion, Hip abd/add, Glut set Seated Reps: 15 NuStep Minutes: 15 NuStep Workload: 4 Treatments TF to standing and amb. in hallway, taking RB as needed for fatigue. Pt uses NuStep followed by short RB then completes Seated EX. After RB, Pt attempts to stand and walk again but too fatigued. Pt propels WC in hallway then returns to room. TF back to recliner at end of tx with all needs met, call light in hand. Assessment Current Status: Good Progress RB needed throughout tx for fatigue. VC given for sequencing and safety at times. PT Short Term Goals Short Term Goals Time Frame: Jan 23, 2022 Roll Left & Right: 6 Sit to lyin Lying to sitting on side of be: 5 Sit to stand: 4 Chair/pjh-sn-gyucj transfer: 4 Walk 10 feet: 4 PT Mobile Sales Technician Goals Care Home Goals PT Mobile Sales Technician Goals Time Frame: Feb 06, 2022 Roll Left & Right (QC): 6 Sit to Lying (QC): 6 Lying-Sitting on Side/Bed(QC): 6 Sit to Stand (QC): 5 Chair/Hbh-zc-Ziopt Xfer(QC): 5 Toilet Transfer (QC): 5 Car Transfer (QC): 5 Does the Patient Walk: Yes Walk 10 feet (QC): 5 Walk 50ft with 2 Turns (QC): 5 Walk 150 ft (QC): 88 Walking 10ft on Uneven Surface: 5 1 Step (curb) (QC): 3 4 Steps (QC): 88 12 Steps (QC): 88 Picking up an Object (QC): 5 Wheel 50 feet with 2 turns (QC: 6 Wheel 150 feet: 6 PT Plan Problem List Problem List: Activity Tolerance, Functional Strength, Transfer Treatment/Plan Treatment Plan: Continue Plan of Care Treatment Plan: Bed Mobility, Education, Functional Activity Rani, Functional Strength, Group Therapy, Gait, Safety, Therapeutic Exercise, Transfers Treatment Duration: Feb 06, 2022 Frequency: At least 5 of 7 days/Wk (IRF) Estimated Hrs Per Day: 1.5 hours per day Patient and/or Family Agrees t: Yes Safety Risks/Education Patient Education: Gait Training, Transfer Techniques, Correct Positioning, W/C Management, Safety Issues Teaching Recipient: Patient Teaching Methods: Discussion Response to Teaching: Verbalize Understanding Time/GCodes Time In: 800 Time Out: 930 Total Billed Treatment Time: 90 Total Billed Treatment 1, EX x3 (45m), GT x2 (25m) & WCH (20m) ZURI YEPEZ LEATHER HEEL BREASTER Jan 21, 2022 09:36
--- NOTE | 2022-01-21 11:05 | Progress Note ---
INGRID NASH 01/21/22 1105: Progress Note CC: Weakness s/p C. Diff Colitis HPI: Patient is an 86 y/o M with history of C. Diff colitis and recurrent Pseudomonas UTI who presents to ARU for weakness. He is awake and eating breakfast today. He was also seen working with PT/OT this morning. He denies any pain at this time. He also reports that his stools are no longer loose. Patient does appear to be taking longer to answer questions, but this may be due to the cognitive decline occurring at his old age. He is still on Vanc and Cefapime. All other labs were reviewed today. Previously, his stated she used to help him with a lot of things around the house. Prior to hospitalization, patient was able to toilet and shower himself. Currently, however, he is requiring more assistance with these and other activities. ROS: General: no fever, no chills Cardio: no chest pain Lungs: no shortness of breath Abdominal: no diarrhea Exam: Vitals: T: 36.4, P: 70, RR: 20, BP: 131/49, O2: 96 General: in No acute distress, calm Heart: RRR, no murmurs Lungs: CTAB Assessment: C. Diff Colitis Diarrhea Recurrent Pseudomonas UTI CAD AFIB HTN Type 2 DM Obesity Anemia Hypoalbuminemia - Albumin 3.0 today Plan: Vancomycin Cefapime Continue other home meds Monitor labs and replace prn OT/PT Regular Diet RADHA FORDE DO 01/22/22 0523: Supervisory-Addendum Brief Verification & Attestation Participated in pt care: history, MDM, physical Personally performed: exam, history, MDM, supervision of care Care discussed with: Medical Student Procedures: n/a Results interpretation: Verified all documentation Verification and Attestation of Medical Student E/M Service A medical student performed and documented this service in my presence. I reviewed and verified all information documented by the medical student and made modifications to such information, when appropriate. I personally performed the physical exam and medical decision making. Radha Forde, Jan 22, 2022,05:23 INGRID NASH Jan 21, 2022 11:05 RADHA FORDE DO Jan 22, 2022 05:23
--- NOTE | 2022-01-21 12:02 | Occupational Ther Daily Note ---
OT Current Status-Daily Note Subjective Pt alert in recliner. Pt agrees to therapy. No c/o pain at this time. Mental Status/Objective Patient Orientation: Person, Place, Time, Situation Attachments: IV Acute change in mental status: 0 Inattention: 0 Disorganized thinkin Altered level of consciousness: 0 ADL-Treatment Pt agrees to shower. Pt demonstrates SOA throughout session. Pt ambulated to bathroom using FWW with CGA. CGA for toilet/BSC transfer. Pt able to manipulate own clothing with CGA, no hygiene needed at that time. CGA to transfer in/out of shower using FWW, grabbars and shower bench. Pt completed shower in sitting 100% of the time, leans side to side to cleanse buttocks. Pt completed shower with supervision due to fatigue and for safety. After set up, pt completes UB dressing by self. After set up, pt able to thread feet into LB clothing then CGA in standing to hike pants over hips. Pt declines completing oral care sin ce dentures are not here. Pt shaves self sitting at sink independent. After set up and using AE, pt able to don socks by self, doffs both without AE. After session, pt sitting in recliner with call light/phone in reach. Family present in room. All needs met. Therapy Code Descriptions/Definitions Functional [place] Measure: 0=Not Assessed/NA 4=Minimal Assistance 1=Total Assistance 5=Supervision or Setup 2=Maximal Assistance 6=Modified [place] 3=Moderate Assistance 7=Complete IndependenceSCALE: Activities may be completed with or without assistive devices. 2-Awecilcwla-oynzntu completes the activity by him/herself with no assistance from a helper. 5-Set-up or Clean-up Assistance-helper sets up or cleans up; patient completes activity. [place] assists only prior to or following the activity. 4-Supervision or Touching Assistance-helper provides verbal cues and/or touching/steadying and/or contact guard assistance as patient completes activity. Assistance may be provided throughout the activity or intermittently. 3-Partial/Moderate Assistance-helper does LESS THAN HALF the effort. [place] lifts, holds or supports trunk or limbs, but provides less than half the effort. 2-Substantial/Maximal Assistance-helper does MORE THAN HALF the effort. [place] lifts or holds trunk or limbs and provides more than half the effort. 3-Yvifbecde-vxfbxf does ALL the effort. Patient does none of the effort to complete the activity. Or, the assistance of 2 or more helpers is required for the patient to complete the activity. If activity was not attempted, code reason: 7-Patient Refused. 9-Not Applicable-not attempted and the patient did not perform the activity b efore the current illness, exacerbation or injury. 10-Not Attempted due to Environmental Limitations-(lack of equipment, weather restraints, etc.). 88-Not Attempted due to Medical Conditions or Safety Concerns. Oral Hygiene (QC): 10 Bathing Location: L Arm, R Arm, L Upper Leg, R Upper Leg, L Lower Leg (including foot), R Lower Leg (including foot), Chest, Abdomen, Buttocks, Perineal Area Shower/Bathe Self (QC): 4 Upper Body Dressing (QC): 5 Lower Body Dressing (QC): 4 On/Off Footwear: 5 Toilet Transfer (QC): 4 Other Treatment Pt completed fine motor task of removing small objects from medium/heavy theraputty, to strengthen pinch/filter press pumper strength for ADL's. Pt completed 2 fine/gross motor activities, with a cognition component, in standing to work on dynamic standing balance. Pt required multiple verbal cues and finished task in sitting due to fatigue. OT Alf Goals Computational Biologist Goals Time Frame: Feb 08, 2022 Acute change in mental status: 0 Inattention: 0 Disorganized thinkin Altered level of consciousness: 0 Eating (QC): 6 Oral Hygiene (QC): 10 Toileting Hygiene (QC): 6 Shower/Bathe Self (QC): 6 Upper Body Dressing (QC): 5 Lower Body Dressing (QC): 5 On/Off Footwear (QC): 5 Additional Goals: 1-Demonstrate ADL Tasks, 2-Verbalize Understanding, 3- ImproveStrength/Rani 1=Demonstrate adherence to instructed precautions during ADL tasks. 2=Patient will verbalize/demonstrate understanding of assistive devices/mod ifications for ADL. 3=Patient will improve strength/tolerance for activity to enable patient to perform ADL's. OT Education/Plan Problem List/Assessment Assessment: Decreased Activ Tolerance, Decreased Safety Aware, Decreased UE Strength, Impaired Cognition, Impaired Coordination, Impaired Self-Care Skills Pt is currently at his PLOF with ADLs, but per physician orders and rehab process, OT will see pt for continued UE strengthening, activity tolerance, and increasing level of independence with ADLs and functional mobility. Discharge Recommendations Plan/Recommendations: Continue POC Treatment Plan/Plan of Care Patient would benefit from OT for education, treatment and training to promote independence in ADL's, mobility, safety and/or upper extremity function for ADL's. Plan of Care: ADL Retraining, Functional Mobility, Group Exercise/Act as Ind, UE Funct Exercise/Act Treatment Duration: Feb 08, 2022 Frequency: At least 5 of 7 days/Wk (IRF) Estimated Hrs Per Day: 1.5 hours per day Agreement: Yes Rehab Potential: Fair Time/GCodes Start Time: 10:30 Stop Time: 12:00 Total Time Billed (hr/min): 90 Billed Treatment Time 1 visit ADL 4 (60 min) EX 2 (30 min) SALIMA YIN Jan 21, 2022 12:02
[2022-01-21 19:51] VITALS: BP 122/70
[2022-01-21] MEDS: ASPIRIN E.C. 81 MG (ECOTRIN) TAB PO SCH (20:34)
[2022-01-21] MEDS: LATANOPROST 0.005% (XALATAN) OPHTH SOLN 2.5 ML OU SCH (20:41)
--- NOTE | 2022-01-22 05:52 | PM&R Progress Note ---
Subjective HPI/CC On Admission Date Seen by Provider: Jan 22, 2022 Time Seen by Provider: 09:00 Subjective/Events-last exam 01/22/2022: No major issues No falls Increasing strength Loose stools resolved 01/21/2022: No major issues Confusion is noted but is mild No more loose stools Completing cefepime treatment 01/20/2022: Improved status No pain Less loose stools concerned about subtle confusion and I explained his risk factors of out of home and routine and recent illness and likely dementia early signs due to advanced age 86 01/19/2022: Patient much improved and granddaughters at the bedside No more loose stools Pseudomonas treatment tolerated 01/18/2022: Improved status Less diarrhea Vanc PO tolerated Cefepime IV 01/17/2022: Patient having a good day Less diarrhea Vancomycin p.o. tolerated for C. difficile colitis Cefepime for Pseudomonas UTI maintained No major concerns at this time Had an episode of chest pain Dr. Sparrow managed Review of Systems General: Fatigue, Malaise Objective Exam Vital Signs Vital Signs Date Time Temp Pulse Resp B/P (MAP) Pulse Ox O2 Delivery O2 Flow Rate FiO2 01/22/22 21:35 94 Room Air 01/22/22 20:15 36.6 69 20 135/62 (86) Capillary Refill : General Appearance: No Apparent Distress, WD/WN, Chronically ill, Obese HEENT: PERRL/EOMI, Normal ENT Inspection, Pharynx Normal Neck: Full Range of Motion, Normal Inspection, Non Tender, Supple, Carotid Bruit Respiratory: Chest Non Tender, Lungs Clear, Normal Breath Sounds, No Accessory Muscle Use, No Respiratory Distress Cardiovascular: Regular Rate, Rhythm, No Edema, No Gallop, No JVD, No Murmur, Normal Peripheral Pulses Gastrointestinal: Normal Bowel Sounds, No Organomegaly, No Pulsatile Mass, Non Tender, Soft Back: Normal Inspection, No CVA Tenderness, No Vertebral Tenderness Extremity: Normal Capillary Refill, Normal Inspection, Normal Range of Motion, Non Tender, No Calf Tenderness, No Pedal Edema Neurologic/Psychiatric: Alert, Oriented x3, No Motor/Sensory Deficits, gas pump attendant II- XII Norm as Tested, Depressed Affect, Motor Weakness (generalized) Skin: Normal Color, Warm/Dry Lymphatic: No Adenopathy Results/Procedures Lab Patient resulted labs reviewed. FIM Transfers Therapy Code Descriptions/Definitions Functional [place] Measure: 0=Not Assessed/NA 4=Minimal Assistance 1=Total Assistance 5=Supervision or Setup 2=Maximal Assistance 6=Modified [place] 3=Moderate Assistance 7=Complete IndependenceSCALE: Activities may be completed with or without assistive devices. 5-Meenybjain-cqxlaxy completes the activity by him/herself with no assistance from a helper. 5-Set-up or Clean-up Assistance-helper sets up or cleans up; patient completes activity. [place] assists only prior to or following the activity. 4-Supervision or Touching Assistance-helper provides verbal cues and/or touching/steadying and/or contact guard assistance as patient completes activity. Assistance may be provided throughout the activity or intermittently. 3-Partial/Moderate Assistance-helper does LESS THAN HALF the effort. [place] lifts, holds or supports trunk or limbs, but provides less than half the effort. 2-Substantial/Maximal Assistance-helper does MORE THAN HALF the effort. [place] lifts or holds trunk or limbs and provides more than half the effort. 0-Efpddlzhl-gxrykn does ALL the effort. Patient does none of the effort to complete the activity. Or, the assistance of 2 or more helpers is required for the patient to complete the activity. If activity was not attempted, code reason: 7-Patient Refused. 9-Not Applicable-not attempted and the patient did not perform the activity before the current illness, exacerbation or injury. 10-Not Attempted due to Environmental Limitations-(lack of equipment, weather restraints, etc.). 88-Not Attempted due to Medical Conditions or Safety Concerns. Roll Left to Right (QC): 6 Sit to Lying (QC): 4 Sit to Stand (QC): 3 Chair/Xjq-xi-Jvtho Xfer(QC): 3 Car Transfer (QC): 4 Gait Training Does the Patient Walk?: Yes Distance: 60', 75', 20' Walk 10 feet (QC): 4 Walk 50 ft with 2 Turns(QC): 4 Walk 150 ft (QC): 4 Walking 10ft/uneven surface-QC: 3 Gait Persons Needed: 1 Gait Assistive Device: FWW Wheelchair Training Does the Pt Use a Wheelchair?: Yes Distance: 120'x2 Wheel 50 ft with 2 turns (QC): 3 Wheel 150 ft (QC): 4 Type of Wheelchair: Manual Stair Training 1 Step (curb) (QC): 88 4 Steps (QC): 88 12 Steps (QC): 88 Balance Picking up an Object (QC): 4 (CGA using a underwriting sales representative) ADL-Treatment Eating (QC): 6 (Per clinical judgement) Oral Hygiene (QC): 10 Bathing Location: L Arm, R Arm, L Upper Leg, R Upper Leg, L Lower Leg (including foot), R Lower Leg (including foot), Chest, Abdomen, Buttocks, P erineal Area Shower/Bathe Self (QC): 4 Upper Body Dressing (QC): 5 Lower Body Dressing (QC): 4 On/Off Footwear (QC): 5 Toileting Hygiene (QC): 3 Toilet Transfer (QC): 4 Assessment/Plan Assessment and Plan Assess & Plan/Chief Complaint Assessment: C diff colitis 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 difficile colitis treatment Maintain cefepime for Pseudomonas UTI 01/18/2022: Vanc PO 01/19/2022: Supportive care 01/20/2022: Monitor closely 01/21/2022: Complete vancomycin treatment Completed cefepime 01/22/2022: Monitor closely (1) C. difficile colitis Status: Acute EDEN FORDE DO Jan 22, 2022 05:52
[2022-01-22 07:38] VITALS: BP 100/65
[2022-01-22 08:25] VITALS: BP 104/54
--- NOTE | 2022-01-22 08:47 | Occ Therapy Rehab Re-Cert ---
OT Re-Certification Form Plan of Care: ADL Retraining, Functional Mobility, Group Exercise/Act as Ind, UE Funct Exercise/Act LTG for oral care upgraded, pt does not have his dentures, but goal written for SBA with education on importance of oral hygiene, including proper gum and tongue hygiene with oral sponge. Treatment Duration: Feb 08, 2022 Frequency: At least 5 of 7 days/Wk (IRF) Estimated Hrs Per Day: 1.5 hours per day Agreement: Yes Rehab Potential: Fair OT Mini Lab Operator Goals Mini Lab Operator Goals Time Frame: Feb 08, 2022 Acute change in mental status: 0 Inattention: 0 Disorganized thinkin Altered level of consciousness: 0 Eating (QC): 6 Oral Hygiene (QC): 4 (SBA with education on importance of oral hygiene) Toileting Hygiene (QC): 6 Shower/Bathe Self (QC): 6 Upper Body Dressing (QC): 5 Lower Body Dressing (QC): 5 On/Off Footwear (QC): 5 Additional Goals: 1-Demonstrate ADL Tasks, 2-Verbalize Understanding, 3- ImproveStrength/Rani 1=Demonstrate adherence to instructed precautions during ADL tasks. 2=Patient will verbalize/demonstrate understanding of assistive devic es/modifications for ADL. 3=Patient will improve strength/tolerance for activity to enable patient to perform ADL's. MARLEY MCCOY OT Jan 22, 2022 08:46
[2022-01-22] MEDS: KCL 8 MEQ (MICRO K) TABLET PO SCH (09:18)
[2022-01-22] MEDS: FUROSEMIDE 20 MG (LASIX) TAB PO SCH (09:18)
[2022-01-22] MEDS: VANCOMYCIN 125 MG CAPSULE PO SCH ×4 (09:18→21:38)
[2022-01-22] MEDS: TAMSULOSIN 0.4 MG (FLOMAX) CAP PO SCH ×2 (09:18→21:38)
[2022-01-22] MEDS: CALCIUM CARB + VIT D 600 MG (CALCARB + D) TAB PO SCH (09:19)
[2022-01-22] MEDS: APIXABAN 5 MG (ELIQUIS) TABLET PO SCH ×2 (09:19→21:38)
[2022-01-22] MEDS: FAMOTIDINE 20 MG (PEPCID) TABLET PO SCH (09:19)
[2022-01-22] MEDS: SERTRALINE 50 MG (ZOLOFT) TABLET PO SCH (09:19)
--- NOTE | 2022-01-22 09:23 | Physical Therapy Daily Note ---
PT Daily Note-Current Subjective Patient in recliner pre tx, agrees to PT, has pain of 6/10 in his knees. Pain Section J - Health Conditions 1. Rarely or not at all 2. Occasionally 3. Frequently 4. Almost constantly 8. Unable to answer Pain Effect on Sleep: 1 Pain Interference with Therapy: 1 Pain Interference w/Day-to-Day: 1 Appearance Patient in recliner post tx with nurse call, phone, tray, all needs met. Mental Status Patient Orientation: Person, Place, Situation Transfers SCALE: Activities may be completed with or without assistive devices. 0-Atzwjkxajp-hlknszp completes the activity by him/herself with no assistance from a helper. 5-Set-up or Clean-up Assistance-helper sets up or cleans up; patient completes activity. [place] assists only prior to or following the activity. 4-Supervision or Touching Assistance-helper provides verbal cues and/or touching/steadying and/or contact guard assistance as patient completes a ctivity. Assistance may be provided throughout the activity or intermittently. 3-Partial/Moderate Assistance-helper does LESS THAN HALF the effort. [place] lifts, holds or supports trunk or limbs, but provides less than half the effort. 2-Substantial/Maximal Assistance-helper does MORE THAN HALF the effort. [place] lifts or holds trunk or limbs and provides more than half the effort. 4-Qsfytjpvi-oldnkx does ALL the effort. Patient does none of the effort to complete the activity. Or, the assistance of 2 or more helpers is required for the patient to complete the activity. If activity was not attempted, code reason: 7-Patient Refused. 9-Not Applicable-not attempted and the patient did not perform the activity before the current illness, exacerbation or injury. 10-Not Attempted due to Environmental Limitations-(lack of equipment, weather restraints, etc.). 88-Not Attempted due to Medical Conditions or Safety Concerns. Sit to Stand (QC): 2 Chair/Hmx-vp-Eyqvc Xfer(QC): 4 Patient had more difficulty with sit to stand today and at one point needed assist of 2 to stand from a lower chair. Patient needed assist to fully dress at the beginning of tx, including shoes. Weight Bearing Full Weight Bearing Full Weight Bearing Gait Training Distance: 60'x3 Walk 10 feet (QC): 4 Walk 50 ft with 2 Turns(QC): 4 Gait Assistive Device: FWW WC follow. After ambulating for 60' the first time, patient didn't seem to be able to move his feet after he got up again to ambulate (O2 97%, HR 69 bpm, BP 104/54). Patient took a longer rest and required assist of to to stand and get into the WC. Exercises Seated Therapy Exercises: Ankle pumps, Hip flexion, Hip abd/add Seated Reps: 20 LAQ alternating for 5 min NuStep Minutes: 15 NuStep Workload: 5 Treatments transfers, ambulation, functional strengthening Assessment Current Status: Poor Progress no progress with functional mobility, more difficulty with sit to stand PT Short Term Goals Short Term Goals Time Frame: Jan 23, 2022 Roll Left & Right: 6 Sit to lyin Lying to sitting on side of be: 5 Sit to stand: 4 Chair/zha-ts-uuwws transfer: 4 Walk 10 feet: 4 PT Care Home Goals Care Home Goals PT Equipment Scheduler Goals Time Frame: Feb 06, 2022 Roll Left & Right (QC): 6 Sit to Lying (QC): 6 Lying-Sitting on Side/Bed(QC): 6 Sit to Stand (QC): 5 Chair/Dhl-tl-Vygxy Xfer(QC): 5 Toilet Transfer (QC): 5 Car Transfer (QC): 5 Does the Patient Walk: Yes Walk 10 feet (QC): 5 Walk 50ft with 2 Turns (QC): 5 Walk 150 ft (QC): 88 Walking 10ft on Uneven Surface: 5 1 Step (curb) (QC): 3 4 Steps (QC): 88 12 Steps (QC): 88 Picking up an Object (QC): 5 Wheel 50 feet with 2 turns (QC: 6 Wheel 150 feet: 6 PT Plan Problem List Problem List: Activity Tolerance, Functional Strength, Safety, Balance, Gait, Transfer, Bed Mobility, ROM Treatment/Plan Treatment Plan: Continue Plan of Care Treatment Plan: Bed Mobility, Education, Functional Activity Rani, Functional Strength, Group Therapy, Gait, Safety, Therapeutic Exercise, Transfers Treatment Duration: Feb 06, 2022 Frequency: At least 5 of 7 days/Wk (IRF) Estimated Hrs Per Day: 1.5 hours per day Patient and/or Family Agrees t: Yes Safety Risks/Education Patient Education: Gait Training, Transfer Techniques, Correct Positioning, Safety Issues Teaching Recipient: Patient Teaching Methods: Demonstration, Discussion Response to Teaching: Reinforcement Needed Time/GCodes Time In: 0800 Time Out: 929 Total Billed Treatment Time: 90 Total Billed Treatment 1 visit EX 30' FA 60' KILLIAN VAUGHN PT Jan 22, 2022 09:23
[2022-01-22] MEDS: RT--FLUTICASONE/SALMETEROL 232-14 (AIRDUO RespiCLICK) IH SCH (09:42)
[2022-01-22] MEDS: EMPAGLIFLOZIN 10 MG TABLET (JARDIANCE) PO SCH (09:45)
[2022-01-22] MEDS: MICONAZOLE 2% POWDER (DESENEX AF) 90 GM TOP SCH ×2 (09:45→21:45)
[2022-01-22] MEDS: INSULIN DEGLUDEC SQ SCH (09:49)
--- NOTE | 2022-01-22 10:26 | Occupational Ther Daily Note ---
OT Current Status-Daily Note Subjective Pt alert in recliner. Pt agrees to therapy. No c/o pain at this time. Mental Status/Objective Patient Orientation: Person, Place, Time, Situation Attachments: IV Acute change in mental status: 0 Inattention: 0 Disorganized thinkin Altered level of consciousness: 0 ADL-Treatment Attempted to have pt cleanse mouth though dentures are not available. Pt refuses to complete oral care since pt doesn't have dentures here. Multiple attempts made during this session and previous sessions, pt continues to refuse oral care. Pt is able to complete eating independently and shaves self, so using clinical judgment pt is able to complete oral care by self while sitting at sink. Pt refusal to change clothes or complete personal hygiene tasks. Pt transfers from recliner to , [facility]. WC used throughout session due to fatigue after PT session. Pt self propelled WC to therapy gym. Pt self propelled WC back to room. Pt fluctuates between normal cognition and confusion throughout therapy session. Pt left in recliner call light/phone in reach. Family in room. All needs met. Therapy Code Descriptions/Definitions Functional [place] Measure: 0=Not Assessed/NA 4=Minimal Assistance 1=Total Assistance 5=Supervision or Setup 2=Maximal Assistance 6=Modified [place] 3=Moderate Assistance 7=Complete IndependenceSCALE: Activities may be completed with or without assistive devices. 9-Dostffgzjk-dgxwptd completes the activity by him/herself with no assistance from a helper. 5-Set-up or Clean-up Assistance-helper sets up or cleans up; patient completes activity. [place] assists only prior to or following the activity. 4-Supervision or Touching Assistance-helper provides verbal cues and/or touchin g/steadying and/or contact guard assistance as patient completes activity. Assistance may be provided throughout the activity or intermittently. 3-Partial/Moderate Assistance-helper does LESS THAN HALF the effort. [place] lifts, holds or supports trunk or limbs, but provides less than half the effort. 2-Substantial/Maximal Assistance-helper does MORE THAN HALF the effort. [place] lifts or holds trunk or limbs and provides more than half the effort. 0-Ubblmakft-crprgg does ALL the effort. Patient does none of the effort to complete the activity. Or, the assistance of 2 or more helpers is required for the patient to complete the activity. If activity was not attempted, code reason: 7-Patient Refused. 9-Not Applicable-not attempted and the patient did not perform the activity before the current illness, exacerbation or injury. 10-Not Attempted due to Environmental Limitations-(lack of equipment, weather restraints, etc.). 88-Not Attempted due to Medical Conditions or Safety Concerns. Oral Hygiene (QC): 6 (Per clinical judgement) Other Treatment Pt completed gross/fine motor task working coordination/dexterity for daily tasks by picking up 1"cubes and placing on other side of partitioned box 1 min each hand. Pt tolerated well. Pt completed fine motor task of picking small objects out of medium/hard theraputty to strengthen pinch/grasp for ADL's. Pt attempted fine motor task with cognitive component, but was not able to complete without verbal and physical cues due to confusion. Pt completed B UE fine/gross motor task to strengthen B UE for daily functional tasks. 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 2=Patient will verbalize/demonstrate understanding of assistive devices/modifications for ADL. 3=Patient will improve strength/tolerance for activity to enable patient to perform ADL's. OT Education/Plan Problem List/Assessment Assessment: Decreased Activ Tolerance, Decreased UE Strength, Impaired Cognition, Impaired Funct Balance, Impaired Self-Care Skills Pt is currently at his PLOF with ADLs, but per physician orders and rehab process, OT will see pt for continued UE strengthening, activity tolerance, and increasing level of independence with ADLs and functional mobility. Discharge Recommendations Plan/Recommendations: Continue POC Treatment Plan/Plan of Care Patient would benefit from OT for education, treatment and training to promote independence in ADL's, mobility, safety and/or upper extremity function for ADL's. Plan of Care: ADL Retraining, Functional Mobility, Group Exercise/Act as Ind, UE Funct Exercise/Act Treatment Duration: Feb 08, 2022 Frequency: At least 5 of 7 days/Wk (IRF) Estimated Hrs Per Day: 1.5 hours per day Agreement: Yes Rehab Potential: Fair Time/GCodes Start Time: 10:00 Stop Time: 11:30 Total Time Billed (hr/min): 90 Billed Treatment Time 1 visit FA 2 (30 min) EX 4 (60 min) SALIMA YIN Jan 22, 2022 10:26
[2022-01-22] MEDS: TRELEGY ELLIPTA IH SCH (11:21)
[2022-01-22 20:15] VITALS: BP 135/62
[2022-01-22] MEDS: ASPIRIN E.C. 81 MG (ECOTRIN) TAB PO SCH (21:37)
[2022-01-22] MEDS: meTOprolol TARTRATE 50 MG (LOPRESSOR) TAB PO SCH (21:38)
[2022-01-22] MEDS: LATANOPROST 0.005% (XALATAN) OPHTH SOLN 2.5 ML OU SCH (21:45)
--- NOTE | 2022-01-23 05:58 | PM&R Progress Note ---
Subjective HPI/CC On Admission Date Seen by Provider: Jan 23, 2022 Time Seen by Provider: 08:30 Subjective/Events-last exam 01/23/2022: No major changes Gaining strength No falls No loose stools 01/22/2022: No major issues No falls Increasing strength Loose stools resolved 01/21/2022: No major issues Confusion is noted but is mild No more loose stools Completing cefepime treatment 01/20/2022: Improved status No pain Less loose stools concerned about subtle confusion and I explained his risk factors of out of home and routine and recent illness and likely dementia early signs due to advanced age 86 01/19/2022: Patient much improved and granddaughters at the bedside No more loose stools Pseudomonas treatment tolerated 01/18/2022: Improved status Less diarrhea Vanc PO tolerated Cefepime IV 01/17/2022: Patient having a good day Less diarrhea Vancomycin p.o. tolerated for C. difficile colitis Cefepime for Pseudomonas UTI maintained No major concerns at this time Had an episode of chest pain Dr. Sparrow managed Review of Systems General: Fatigue, Malaise Objective Exam Vital Signs Vital Signs Date Time Temp Pulse Resp B/P (MAP) Pulse Ox O2 Delivery O2 Flow Rate FiO2 01/23/22 21:15 94 Room Air 01/23/22 20:00 36.4 69 20 144/67 (92) Capillary Refill : General Appearance: No Apparent Distress, WD/WN, Chronically ill, Obese HEENT: PERRL/EOMI, Normal ENT Inspection, Pharynx Normal Neck: Full Range of Motion, Normal Inspection, Non Tender, Supple, Carotid Bruit Respiratory: Chest Non Tender, Lungs Clear, Normal Breath Sounds, No Accessory Muscle Use, No Respiratory Distress Cardiovascular: Regular Rate, Rhythm, No Edema, No Gallop, No JVD, No Murmur, Normal Peripheral Pulses Gastrointestinal: Normal Bowel Sounds, No Organomegaly, No Pulsatile Mass, Non Tender, Soft Back: Normal Inspection, No CVA Tenderness, No Vertebral Tenderness Extremity: Normal Capillary Refill, Normal Inspection, Normal Range of Motion, Non Tender, No Calf Tenderness, No Pedal Edema Neurologic/Psychiatric: Alert, Oriented x3, No Motor/Sensory Deficits, cloth tester II- XII Norm as Tested, Depressed Affect, Motor Weakness (generalized) Skin: Normal Color, Warm/Dry Lymphatic: No Adenopathy Results/Procedures Lab Patient resulted labs reviewed. FIM Transfers Therapy Code Descriptions/Definitions Functional [place] Measure: 0=Not Assessed/NA 4=Minimal Assistance 1=Total Assistance 5=Supervision or Setup 2=Maximal Assistance 6=Modified [place] 3=Moderate Assistance 7=Complete IndependenceSCALE: Activities may be completed with or without assistive devices. 1-Pwtgbooetk-ooiryak completes the activity by him/herself with no assistance from a helper. 5-Set-up or Clean-up Assistance-helper sets up or cleans up; patient completes activity. [place] assists only prior to or following the activity. 4-Supervision or Touching Assistance-helper provides verbal cues and/or touching/steadying and/or contact guard assistance as patient completes activity. Assistance may be provided throughout the activity or intermittently. 3-Partial/Moderate Assistance-helper does LESS THAN HALF the effort. [place] lifts, holds or supports trunk or limbs, but provides less than half the effort. 2-Substantial/Maximal Assistance-helper does MORE THAN HALF the effort. [place] lifts or holds trunk or limbs and provides more than half the effort. 9-Twhwizcex-ucdafo does ALL the effort. Patient does none of the effort to complete the activity. Or, the assistance of 2 or more helpers is required for the patient to complete the activity. If activity was not attempted, code reason: 7-Patient Refused. 9-Not Applicable-not attempted and the patient did not perform the activity before the current illness, exacerbation or injury. 10-Not Attempted due to Environmental Limitations-(lack of equipment, weather restraints, etc.). 88-Not Attempted due to Medical Conditions or Safety Concerns. Roll Left to Right (QC): 6 Sit to Lying (QC): 4 Sit to Stand (QC): 2 Chair/Lwd-ra-Xrwxc Xfer(QC): 4 Car Transfer (QC): 4 Gait Training Does the Patient Walk?: Yes Distance: 60'x3 Walk 10 feet (QC): 4 Walk 50 ft with 2 Turns(QC): 4 Walk 150 ft (QC): 4 Walking 10ft/uneven surface-QC: 3 Gait Persons Needed: 1 Gait Assistive Device: FWW Wheelchair Training Does the Pt Use a Wheelchair?: Yes Distance: 120'x2 Wheel 50 ft with 2 turns (QC): 3 Wheel 150 ft (QC): 4 Type of Wheelchair: Manual Stair Training 1 Step (curb) (QC): 88 4 Steps (QC): 88 12 Steps (QC): 88 Balance Picking up an Object (QC): 4 (CGA using a car lot attendant) ADL-Treatment Eating (QC): 6 (Per clinical judgement) Oral Hygiene (QC): 6 (Per clinical judgement) Bathing Location: L Arm, R Arm, L Upper Leg, R Upper Leg, L Lower Leg (including foot), R Lower Leg (including foot), Chest, Abdomen, Buttocks, Perineal Area Shower/Bathe Self (QC): 4 Upper Body Dressing (QC): 5 Lower Body Dressing (QC): 4 On/Off Footwear (QC): 5 Toileting Hygiene (QC): 3 Toilet Transfer (QC): 4 Assessment/Plan Assessment and Plan Assess & Plan/Chief Complaint Assessment: C diff colitis 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 difficile colitis treatment Maintain cefepime for Pseudomonas UTI 01/18/2022: Vanc PO 01/19/2022: Supportive care 01/20/2022: Monitor closely 01/21/2022: Complete vancomycin treatment Completed cefepime 01/22/2022: Monitor closely 01/23/2022: Monitor for loose stools (1) C. difficile colitis Status: Acute EDEN FORDE DO Jan 23, 2022 05:58
[2022-01-23] MEDS: TRELEGY ELLIPTA IH SCH (07:27)
[2022-01-23 07:40] VITALS: BP 122/71
[2022-01-23] MEDS: VANCOMYCIN 125 MG CAPSULE PO SCH ×4 (08:24→21:19)
[2022-01-23] MEDS: FUROSEMIDE 20 MG (LASIX) TAB PO SCH (08:24)
[2022-01-23] MEDS: CALCIUM CARB + VIT D 600 MG (CALCARB + D) TAB PO SCH (08:25)
[2022-01-23] MEDS: FAMOTIDINE 20 MG (PEPCID) TABLET PO SCH (08:25)
[2022-01-23] MEDS: meTOprolol TARTRATE 50 MG (LOPRESSOR) TAB PO SCH ×2 (08:25→21:18)
[2022-01-23] MEDS: SERTRALINE 50 MG (ZOLOFT) TABLET PO SCH (08:25)
[2022-01-23] MEDS: TAMSULOSIN 0.4 MG (FLOMAX) CAP PO SCH ×2 (08:25→21:19)
[2022-01-23] MEDS: KCL 8 MEQ (MICRO K) TABLET PO SCH (08:25)
[2022-01-23] MEDS: EMPAGLIFLOZIN 10 MG TABLET (JARDIANCE) PO SCH (08:25)
[2022-01-23] MEDS: APIXABAN 5 MG (ELIQUIS) TABLET PO SCH ×2 (08:25→21:19)
[2022-01-23] MEDS: INSULIN DEGLUDEC SQ SCH (08:29)
--- NOTE | 2022-01-23 08:57 | Occupational Ther Daily Note ---
OT Current Status-Daily Note Subjective Pt alert in recliner. Pt agrees to therapy. No c/o pain at this time. Mental Status/Objective Patient Orientation: Person, Place, Time, Situation Attachments: Central Line Acute change in mental status: 0 Inattention: 0 Disorganized thinkin Altered level of consciousness: 0 ADL-Treatment Pt agrees to shower. Pt ambulates to bathroom using FWW, CGA. Pt transfers to toilet using grabbars, CGA. Pt min A in toilet hygiene after pt attempts to cleanse buttocks and is unable. Pt ambulates with FWW to shower bench. Pt doffs LB and UB clothing independent. Pt completes 100% of shower in sitting by self. Pt independent in oral care sitting at sink. Pt ambulates to recliner using FWW, CGA. Pt donned UB and LB clothing after set up. Pt set up in footwear using AE. Pt completed fine/gross motor tasks with cognitive component to strengthen pinch/wireless development manager for daily functional tasks. Pt was left sitting in recliner, call light/phone in reach. All needs met in room. Therapy Code Descriptions/Definitions Functional [place] Measure: 0=Not Assessed/NA 4=Minimal Assistance 1=Total Assistance 5=Supervision or Setup 2=Maximal Assistance 6=Modified [place] 3=Moderate Assistance 7=Complete IndependenceSCALE: Activities may be completed with or without assistive devices. 6-Kdtiqsnbbl-zrxiuip completes the activity by him/herself with no assistance from a helper. 5-Set-up or Clean-up Assistance-helper sets up or cleans up; patient completes activity. [place] assists only prior to or following the activity. 4-Supervision or Touching Assistance-helper provides verbal cues and/or touching/steadying and/or contact guard assistance as patient completes activity. Assistance may be provided throughout the activity or intermittently. 3-Partial/Moderate Assistance-helper does LESS THAN HALF the effort. [place] lifts, holds or supports trunk or limbs, but provides less than half the effort. 2-Substantial/Maximal Assistance-helper does MORE THAN HALF the effort. [place] lifts or holds trunk or limbs and provides more than half the effort. 2-Bhlszkndp-ermulk does ALL the effort. Patient does none of the effort to complete the activity. Or, the assistance of 2 or more helpers is required for the patient to complete the activity. If activity was not attempted, code reason: 7-Patient Refused. 9-Not Applicable-not attempted and the patient did not perform the activity before the current illness, exacerbation or injury. 10-Not Attempted due to Environmental Limitations-(lack of equipment, weather restraints, etc.). 88-Not Attempted due to Medical Conditions or Safety Concerns. Eating (QC): 6 Oral Hygiene (QC): 6 Bathing Location: L Arm, R Arm, L Upper Leg, R Upper Leg, L Lower Leg (including foot), R Lower Leg (including foot), Chest, Abdomen, Buttocks, Perineal Area Shower/Bathe Self (QC): 6 Upper Body Dressing (QC): 5 Lower Body Dressing (QC): 5 On/Off Footwear: 5 Toileting Hygiene (QC): 3 (Min A) Toilet Transfer (QC): 4 OT [facility] Goals Inspector [place] Goals Time Frame: Feb 08, 2022 Acute change in mental status: 0 Inattention: 0 Disorganized thinkin Altered level of consciousness: 0 Eating (QC): 6 Oral Hygiene (QC): 4 (SBA with education on importance of oral hygiene) Toileting Hygiene (QC): 6 Shower/Bathe Self (QC): 6 Upper Body Dressing (QC): 5 Lower Body Dressing (QC): 5 On/Off Footwear (QC): 5 Additional Goals: 1-Demonstrate ADL Tasks, 2-Verbalize Understanding, 3- ImproveStrength/Rani 1=Demonstrate adherence to instructed precautions during ADL tasks. 2=Patient will verbalize/demonstrate understanding of assistive devices/modifications for ADL. 3=Patient will improve strength/tolerance for activity to enable patient to perform ADL's. OT Education/Plan Problem List/Assessment Assessment: Decreased Activ Tolerance, Decreased Safety Aware, Decreased UE Strength, Impaired Coordination, Impaired Self-Care Skills Pt is currently at his PLOF with ADLs, but per physician orders and rehab process, OT will see pt for continued UE strengthening, activity tolerance, and increasing level of independence with ADLs and functional mobility. Discharge Recommendations Plan/Recommendations: Continue POC Equpiment Recommendations-D/C: Hip Kit Treatment Plan/Plan of Care Patient would benefit from OT for education, treatment and training to promote independence in ADL's, mobility, safety and/or upper extremity function for ADL's. Plan of Care: ADL Retraining, Functional Mobility, Group Exercise/Act as Ind, UE Funct Exercise/Act Treatment Duration: Feb 08, 2022 Frequency: At least 5 of 7 days/Wk (IRF) Estimated Hrs Per Day: 1.5 hours per day Agreement: Yes Rehab Potential: Fair Time/GCodes Start Time: 07:15 Stop Time: 08:45 Total Time Billed (hr/min): 90 Billed Treatment Time 1 visit ADL 5 (75 min) EX 1 (15 min) SALIMA YIN Jan 23, 2022 08:57
--- NOTE | 2022-01-23 12:08 | Physical Therapy Daily Note ---
PT Daily Note-Current Subjective Pt sitting in recliner with Sp visiting upon arrival. Pt agrees to PT. Pain Location: No Pain Reported Section J - Health Conditions 1. Rarely or not at all 2. Occasionally 3. Frequently 4. Almost constantly 8. Unable to answer Pain Effect on Sleep: 1 Pain Interference with Therapy: 1 Pain Interference w/Day-to-Day: 1 Mental Status Patient Orientation: Person, Confused Transfers SCALE: Activities may be completed with or without assistive devices. 0-Nzoyxjuupj-xeirbwg completes the activity by him/herself with no assistance from a helper. 5-Set-up or Clean-up Assistance-helper sets up or cleans up; patient completes activity. [place] assists only prior to or following the activity. 4-Supervision or Touching Assistance-helper provides verbal cues and/or touchin g/steadying and/or contact guard assistance as patient completes activity. Assistance may be provided throughout the activity or intermittently. 3-Partial/Moderate Assistance-helper does LESS THAN HALF the effort. [place] lifts, holds or supports trunk or limbs, but provides less than half the effort. 2-Substantial/Maximal Assistance-helper does MORE THAN HALF the effort. [place] lifts or holds trunk or limbs and provides more than half the effort. 3-Ppcqjlcpo-avkqus does ALL the effort. Patient does none of the effort to complete the activity. Or, the assistance of 2 or more helpers is required for the patient to complete the activity. If activity was not attempted, code reason: 7-Patient Refused. 9-Not Applicable-not attempted and the patient did not perform the activity before the current illness, exacerbation or injury. 10-Not Attempted due to Environmental Limitations-(lack of equipment, weather restraints, etc.). 88-Not Attempted due to Medical Conditions or Safety Concerns. Sit to Stand (QC): 4 Weight Bearing Full Weight Bearing Full Weight Bearing Gait Training Does the Patient Walk?: Yes Distance: 150' Walk 10 feet (QC): 4 Walk 50 ft with 2 Turns(QC): 3 Walk 150 ft (QC): 3 Gait Persons Needed: 1 Gait Assistive Device: FWW Treatments KNOCK OUT HAND discusses w/Pt and Sp what VC KNOCK OUT HAND gives for safety with transfers and amb. and what would improve balance & decrease chance of falling. Discussed Assistiv e Equipment as well as VC that can be given to encourage safe behavior w/sitting & amb. Pt amb. in hallway to show visually as well as demonstration. Pt returns to room to rest in recliner for lunch. All needs met, call light in hand. Assessment Current Status: Fair Progress VC needed for safety for proper sitting technique as well as turning w/o NBOS. SP given instruction as well. PT Short Term Goals Short Term Goals Time Frame: Jan 23, 2022 Roll Left & Right: 6 Sit to lyin Lying to sitting on side of be: 5 Sit to stand: 4 Chair/kri-zk-raggg transfer: 4 Walk 10 feet: 4 PT Counterintelligence/Humint Specialist Goals Counterintelligence/Humint Specialist Goals PT Counterintelligence/Humint Specialist Goals Time Frame: Feb 06, 2022 Roll Left & Right (QC): 6 Sit to Lying (QC): 6 Lying-Sitting on Side/Bed(QC): 6 Sit to Stand (QC): 5 Chair/Kle-ma-Koofn Xfer(QC): 5 Toilet Transfer (QC): 5 Car Transfer (QC): 5 Does the Patient Walk: Yes Walk 10 feet (QC): 5 Walk 50ft with 2 Turns (QC): 5 Walk 150 ft (QC): 88 Walking 10ft on Uneven Surface: 5 1 Step (curb) (QC): 3 4 Steps (QC): 88 12 Steps (QC): 88 Picking up an Object (QC): 5 Wheel 50 feet with 2 turns (QC: 6 Wheel 150 feet: 6 PT Plan Problem List Problem List: Activity Tolerance, Functional Strength, Safety, Gait, Transfer Treatment/Plan Treatment Plan: Continue Plan of Care Treatment Plan: Bed Mobility, Education, Functional Activity Rani, Functional Strength, Group Therapy, Gait, Safety, Therapeutic Exercise, Transfers Treatment Duration: Feb 06, 2022 Frequency: At least 5 of 7 days/Wk (IRF) Estimated Hrs Per Day: 1.5 hours per day Patient and/or Family Agrees t: Yes Safety Risks/Education Patient Education: Gait Training, Transfer Techniques, Correct Positioning, Safety Issues Teaching Recipient: Patient Teaching Methods: Demonstration, Discussion Response to Teaching: Verbalize Understanding, Return Demonstration Time/GCodes Time In: 1100 Time Out: 1200 Total Billed Treatment Time: 60 Total Billed Treatment 1, FA x2 (30m) & GT x2 (30m) ZURI YEPEZ KNOCK OUT HAND Jan 23, 2022 12:08
[2022-01-23] MEDS: MICONAZOLE 2% POWDER (DESENEX AF) 90 GM TOP SCH ×2 (12:37→21:18)
--- NOTE | 2022-01-23 15:30 | Physical Therapy Daily Note ---
PT Daily Note-Current Subjective Pt R sidelying in bed upon arrival. Pt reluctantly agrees to PT as pt states, " I was just sleeping". Pain Location: No Pain Reported Section J - Health Conditions 1. Rarely or not at all 2. Occasionally 3. Frequently 4. Almost constantly 8. Unable to answer Pain Effect on Sleep: 1 Pain Interference with Therapy: 1 Pain Interference w/Day-to-Day: 1 Mental Status Patient Orientation: Person, Confused Transfers SCALE: Activities may be completed with or without assistive devices. 8-Uposbxrkfa-ufpnijo completes the activity by him/herself with no assistance from a helper. 5-Set-up or Clean-up Assistance-helper sets up or cleans up; patient completes activity. [place] assists only prior to or following the activity. 4-Supervision or Touching Assistance-helper provides verbal cues and/or touching/steadying and/or contact guard assistance as patient completes activity. Assistance may be provided throughout the activity or intermittently. 3-Partial/Moderate Assistance-helper does LESS THAN HALF the effort. [place] lifts, holds or supports trunk or limbs, but provides less than half the effort. 2-Substantial/Maximal Assistance-helper does MORE THAN HALF the effort. [place] lifts or holds trunk or limbs and provides more than half the effort. 6-Vtsutbfex-kvgoni does ALL the effort. Patient does none of the effort to complete the activity. Or, the assistance of 2 or more helpers is required for the patient to complete the activity. If activity was not attempted, code reason: 7-Patient Refused. 9-Not Applicable-not attempted and the patient did not perform the activity before the current illness, exacerbation or injury. 10-Not Attempted due to Environmental Limitations-(lack of equipment, weather restraints, etc.). 88-Not Attempted due to Medical Conditions or Safety Concerns. Weight Bearing Full Weight Bearing Full Weight Bearing Exercises Supine Ex: Ankle pumps, Quad Set, Glut sets, Heel Slides, Hip abd/add Supine Reps: 15 Treatments Pt completes Supine EX in bed per pt request. 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 Assessment Pt is in need of using FWW as Pt is limited in his mobility so this impairs his ability to be mobile in ADLs. Pt's limited mobility can not be fixed by using a FWW or cane as pt fatigues too quickly. After talking to pt & Sp, pt has enough room inside his house to use a WCH. Pt has practiced using WCH safely both on his own and with assistance from Sp. PT Short Term Goals Short Term Goals Time Frame: Jan 23, 2022 Roll Left & Right: 6 Sit to lyin Lying to sitting on side of be: 5 Sit to stand: 4 Chair/ldc-iv-qkdke transfer: 4 Walk 10 feet: 4 PT Chcf Goals Chcf Goals PT [place]ips[place] Grader Goals Time Frame: Feb 06, 2022 Roll Left & Right (QC): 6 Sit to Lying (QC): 6 Lying-Sitting on Side/Bed(QC): 6 Sit to Stand (QC): 5 Chair/Ifv-de-Bpkpe Xfer(QC): 5 Toilet Transfer (QC): 5 Car Transfer (QC): 5 Does the Patient Walk: Yes Walk 10 feet (QC): 5 Walk 50ft with 2 Turns (QC): 5 Walk 150 ft (QC): 88 Walking 10ft on Uneven Surface: 5 1 Step (curb) (QC): 3 4 Steps (QC): 88 12 Steps (QC): 88 Picking up an Object (QC): 5 Wheel 50 feet with 2 turns (QC: 6 Wheel 150 feet: 6 PT Plan Problem List Problem List: Activity Tolerance, Functional Strength, Safety, Gait Treatment/Plan Treatment Plan: Continue Plan of Care Treatment Plan: Bed Mobility, Education, Functional Activity Rani, Functional Strength, Group Therapy, Gait, Safety, Therapeutic Exercise, Transfers Treatment Duration: Feb 06, 2022 Frequency: At least 5 of 7 days/Wk (IRF) Estimated Hrs Per Day: 1.5 hours per day Patient and/or Family Agrees t: Yes Safety Risks/Education Patient Education: Gait Training, Transfer Techniques, W/C Management Teaching Recipient: Patient Teaching Methods: Discussion Response to Teaching: Verbalize Understanding Time/GCodes Time In: 1415 Time Out: 1445 Total Billed Treatment Time: 30 Total Billed Treatment 1, EX (20m) & FA (10m) ZURI YEPEZ PTA Jan 23, 2022 15:30
[2022-01-23 20:00] VITALS: BP 144/67
[2022-01-23] MEDS: ASPIRIN E.C. 81 MG (ECOTRIN) TAB PO SCH (21:18)
[2022-01-23] MEDS: LATANOPROST 0.005% (XALATAN) OPHTH SOLN 2.5 ML OU SCH (21:18)
--- NOTE | 2022-01-24 06:18 | PM&R Progress Note ---
Subjective HPI/CC On Admission Date Seen by Provider: Jan 24, 2022 Time Seen by Provider: 10:30 Subjective/Events-last exam 01/24/2022: Improved overall Patient has no complaints Working on the 1 step he will need to step up to get into his house Spoke to 01/23/2022: No major changes Gaining strength No falls No loose stools 01/22/2022: No major issues No falls Increasing strength Loose stools resolved 01/21/2022: No major issues Confusion is noted but is mild No more loose stools Completing cefepime treatment 01/20/2022: Improved status No pain Less loose stools concerned about subtle confusion and I explained his risk factors of out of home and routine and recent illness and likely dementia early signs due to advanced age 86 01/19/2022: Patient much improved and granddaughters at the bedside No more loose stools Pseudomonas treatment tolerated 01/18/2022: Improved status Less diarrhea Vanc PO tolerated Cefepime IV 01/17/2022: Patient having a good day Less diarrhea Vancomycin p.o. tolerated for C. difficile colitis Cefepime for Pseudomonas UTI maintained No major concerns at this time Had an episode of chest pain Dr. Sparrow managed Review of Systems General: Fatigue, Malaise Objective Exam Vital Signs Vital Signs Date Time Temp Pulse Resp B/P (MAP) Pulse Ox O2 Delivery O2 Flow Rate FiO2 01/24/22 21:29 Room Air 01/24/22 19:52 36.3 79 18 129/54 (79) 93 Capillary Refill : General Appearance: No Apparent Distress, WD/WN, Chronically ill, Obese HEENT: PERRL/EOMI, Normal ENT Inspection, Pharynx Normal Neck: Full Range of Motion, Normal Inspection, Non Tender, Supple, Carotid Bruit Respiratory: Chest Non Tender, Lungs Clear, Normal Breath Sounds, No Accessory Muscle Use, No Respiratory Distress Cardiovascular: Regular Rate, Rhythm, No Edema, No Gallop, No JVD, No Murmur, Normal Peripheral Pulses Gastrointestinal: Normal Bowel Sounds, No Organomegaly, No Pulsatile Mass, Non Tender, Soft Back: Normal Inspection, No CVA Tenderness, No Vertebral Tenderness Extremity: Normal Capillary Refill, Normal Inspection, Normal Range of Motion, Non Tender, No Calf Tenderness, No Pedal Edema Neurologic/Psychiatric: Alert, Oriented x3, No Motor/Sensory Deficits, special projects coordinator II- XII Norm as Tested, Depressed Affect, Motor Weakness (generalized) Skin: Normal Color, Warm/Dry Lymphatic: No Adenopathy Results/Procedures Lab Patient resulted labs reviewed. FIM Transfers Therapy Code Descriptions/Definitions Functional [place] Measure: 0=Not Assessed/NA 4=Minimal Assistance 1=Total Assistance 5=Supervision or Setup 2=Maximal Assistance 6=Modified [place] 3=Moderate Assistance 7=Complete IndependenceSCALE: Activities may be completed with or without assistive devices. 2-Yopcuwvxtm-ogyskmn completes the activity by him/herself with no assistance from a helper. 5-Set-up or Clean-up Assistance-helper sets up or cleans up; patient completes activity. [place] assists only prior to or following the activity. 4-Supervision or Touching Assistance-helper provides verbal cues and/or touching/steadying and/or contact guard assistance as patient completes activity. Assistance may be provided throughout the activity or intermittently. 3-Partial/Moderate Assistance-helper does LESS THAN HALF the effort. [place] lifts, holds or supports trunk or limbs, but provides less than half the effort. 2-Substantial/Maximal Assistance-helper does MORE THAN HALF the effort. [place] lifts or holds trunk or limbs and provides more than half the effort. 4-Psxlhufar-desacg does ALL the effort. Patient does none of the effort to complete the activity. Or, the assistance of 2 or more helpers is required for the patient to complete the activity. If activity was not attempted, code reason: 7-Patient Refused. 9-Not Applicable-not attempted and the patient did not perform the activity before the current illness, exacerbation or injury. 10-Not Attempted due to Environmental Limitations-(lack of equipment, weather restraints, etc.). 88-Not Attempted due to Medical Conditions or Safety Concerns. Roll Left to Right (QC): 6 Sit to Lying (QC): 4 Sit to Stand (QC): 4 Chair/Cee-qs-Znwfg Xfer(QC): 4 Car Transfer (QC): 4 Gait Training Does the Patient Walk?: Yes Distance: 150' Walk 10 feet (QC): 4 Walk 50 ft with 2 Turns(QC): 3 Walk 150 ft (QC): 3 Walking 10ft/uneven surface-QC: 3 Gait Persons Needed: 1 Gait Assistive Device: FWW Wheelchair Training Does the Pt Use a Wheelchair?: Yes Distance: 120'x2 Wheel 50 ft with 2 turns (QC): 3 Wheel 150 ft (QC): 4 Type of Wheelchair: Manual Stair Training 1 Step (curb) (QC): 88 4 Steps (QC): 88 12 Steps (QC): 88 Balance Picking up an Object (QC): 4 (CGA using a mold bunch trimmer) ADL-Treatment Eating (QC): 6 Oral Hygiene (QC): 6 Bathing Location: L Arm, R Arm, L Upper Leg, R Upper Leg, L Lower Leg (including foot), R Lower Leg (including foot), Chest, Abdomen, Buttocks, Perineal Area Shower/Bathe Self (QC): 6 Upper Body Dressing (QC): 5 Lower Body Dressing (QC): 5 On/Off Footwear (QC): 5 Toileting Hygiene (QC): 3 (Min A) Toilet Transfer (QC): 4 Assessment/Plan Assessment and Plan Assess & Plan/Chief Complaint Assessment: C diff colitis 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 difficile colitis treatment Maintain cefepime for Pseudomonas UTI 01/18/2022: Vanc PO 01/19/2022: Supportive care 01/20/2022: Monitor closely 01/21/2022: Complete vancomycin treatment Completed cefepime 01/22/2022: Monitor closely 01/23/2022: Monitor for loose stools 01/24/2022: Monitor closely (1) C. difficile colitis Status: Acute EDEN FORDE DO Jan 24, 2022 06:18
[2022-01-24 07:27] VITALS: BP 90/49
[2022-01-24] MEDS: TRELEGY ELLIPTA IH SCH (07:51)
[2022-01-24] MEDS: CALCIUM CARB + VIT D 600 MG (CALCARB + D) TAB PO SCH (08:02)
[2022-01-24] MEDS: KCL 8 MEQ (MICRO K) TABLET PO SCH (08:03)
[2022-01-24] MEDS: FAMOTIDINE 20 MG (PEPCID) TABLET PO SCH (08:03)
[2022-01-24] MEDS: SERTRALINE 50 MG (ZOLOFT) TABLET PO SCH (08:03)
[2022-01-24] MEDS: VANCOMYCIN 125 MG CAPSULE PO SCH ×4 (08:03→20:35)
[2022-01-24] MEDS: EMPAGLIFLOZIN 10 MG TABLET (JARDIANCE) PO SCH (08:03)
[2022-01-24] MEDS: TAMSULOSIN 0.4 MG (FLOMAX) CAP PO SCH ×2 (08:03→20:33)
[2022-01-24] MEDS: FUROSEMIDE 20 MG (LASIX) TAB PO SCH (08:03)
[2022-01-24] MEDS: APIXABAN 5 MG (ELIQUIS) TABLET PO SCH ×2 (08:03→20:34)
--- NOTE | 2022-01-24 08:50 | Occupational Ther Daily Note ---
OT Current Status-Daily Note Subjective Pt alert sitting in recliner. Pt agrees to therapy. No c/o pain at this time. Mental Status/Objective Patient Orientation: Person, Place, Time, Situation Attachments: Central Line Acute change in mental status: 0 Inattention: 0 Disorganized thinkin Altered level of consciousness: 0 ADL-Treatment Pt refusal to change clothes. Pt independent in eating. Pt completed oral and personal hygiene sitting at sink independently. Pt self propels WC to and from therapy gym. Pt transfers to toilet using grabbars, CGA. Pt ambulates FWW to recliner, CGA. Pt transfers to recliner using FWW, CGA. Pt left sitting in recliner call light/ phone in reach. All needs met in room. Therapy Code Descriptions/Definitions Functional [place] Measure: 0=Not Assessed/NA 4=Minimal Assistance 1=Total Assistance 5=Supervision or Setup 2=Maximal Assistance 6=Modified [place] 3=Moderate Assistance 7=Complete IndependenceSCALE: Activities may be completed with or without assistive devices. 2-Lqwakmeyap-arkrlps completes the activity by him/herself with no assistance from a helper. 5-Set-up or Clean-up Assistance-helper sets up or cleans up; patient completes activity. [place] assists only prior to or following the activity. 4-Supervision or Touching Assistance-helper provides verbal cues and/or touching/steadying and/or contact guard assistance as patient completes activity. Assistance may be provided throughout the activity or intermittently. 3-Partial/Moderate Assistance-helper does LESS THAN HALF the effort. [place] lifts, holds or supports trunk or limbs, but provides less than half the effort. 2-Substantial/Maximal Assistance-helper does MORE THAN HALF the effort. [place] lifts or holds trunk or limbs and provides more than half the effort. 4-Blsowhhtu-nchmky does ALL the effort. Patient does none of the effort to complete the activity. Or, the assistance of 2 or more helpers is required for the patient to complete the activity. If activity was not attempted, code reason: 7-Patient Refused. 9-Not Applicable-not attempted and the patient did not perform the activity before the current illness, exacerbation or injury. 10-Not Attempted due to Environmental Limitations-(lack of equipment, weather restraints, etc.). 88-Not Attempted due to Medical Conditions or Safety Concerns. Other Treatment Pt completed 10 min arm bike with 25 quintanilla resistance while participating in a cognitive exercise to increase arm strength for ADL's. Pt removed small objects from red theraputty, to work on pinch/wrapper sizer strength for daily functional tasks. Pt completed 3 B UE light resistance theraband exercises, 3 sets 10 reps to strengthen B UE for daily functional tasks. Pt completed fine/gross motor task with cognitive component using 1 lb arm weights on wrists to strengthen B UE for ADL's. Skilled instruction given for correct technique and to encourage pt to participate in B UE strengthening. OT Halfway Goals Halfway Goals Time Frame: Feb 08, 2022 Acute change in mental status: 0 Inattention: 0 Disorganized thinkin Altered level of consciousness: 0 Eating (QC): 6 Oral Hygiene (QC): 4 (SBA with education on importance of oral hygiene) Toileting Hygiene (QC): 6 Shower/Bathe Self (QC): 6 Upper Body Dressing (QC): 5 Lower Body Dressing (QC): 5 On/Off Footwear (QC): 5 Additional Goals: 1-Demonstrate ADL Tasks, 2-Verbalize Understanding, 3- ImproveStrength/Rani 1=Demonstrate adherence to instructed precautions during ADL tasks. 2=Patient will verbalize/demonstrate understanding of assistive devices/modifications for ADL. 3=Patient will improve strength/tolerance for activity to enable patient to perform ADL's. OT Education/Plan Problem List/Assessment Assessment: Decreased Activ Tolerance, Decreased UE Strength, Impaired Cognition, Impaired Coordination, Impaired Funct Balance, Impaired Self-Care Skills Pt is currently at his PLOF with ADLs, but per physician orders and rehab process, OT will see pt for continued UE strengthening, activity tolerance, and increasing level of independence with ADLs and functional mobility. Discharge Recommendations Plan/Recommendations: Continue POC Treatment Plan/Plan of Care Patient would benefit from OT for education, treatment and training to promote independence in ADL's, mobility, safety and/or upper extremity function for ADL's. Plan of Care: ADL Retraining, Functional Mobility, Group Exercise/Act as Ind, UE Funct Exercise/Act Treatment Duration: Feb 08, 2022 Frequency: At least 5 of 7 days/Wk (IRF) Estimated Hrs Per Day: 1.5 hours per day Agreement: Yes Rehab Potential: Fair Time/GCodes Start Time: 07:15 Stop Time: 08:45 Total Time Billed (hr/min): 90 Billed Treatment Time 1 visit ADL 2 (30 min) EX 4 (60 min) SALIMA YIN Jan 24, 2022 08:50
[2022-01-24] MEDS: MICONAZOLE 2% POWDER (DESENEX AF) 90 GM TOP SCH ×2 (08:56→20:35)
[2022-01-24] MEDS: INSULIN DEGLUDEC SQ SCH (08:56)
[2022-01-24] MEDS: meTOprolol TARTRATE 50 MG (LOPRESSOR) TAB PO SCH ×2 (09:13→20:34)
--- NOTE | 2022-01-24 10:18 | Physical Therapy Daily Note ---
PT Daily Note-Current Subjective Pt. up in recliner, agrees to Rx . No c/o pain but does state the Rx/activity fatigues him Pain Location: No Pain Reported Section J - Health Conditions 1. Rarely or not at all 2. Occasionally 3. Frequently 4. Almost constantly 8. Unable to answer Pain Effect on Sleep: 1 Pain Interference with Therapy: 1 Pain Interference w/Day-to-Day: 1 Mental Status Patient Orientation: Normal For Age Transfers SCALE: Activities may be completed with or without assistive devices. 1-Nbxmnqiayi-ziyqwbz completes the activity by him/herself with no assistance from a helper. 5-Set-up or Clean-up Assistance-helper sets up or cleans up; patient completes activity. [place] assists only prior to or following the activity. 4-Supervision or Touching Assistance-helper provides verbal cues and/or touching/steadying and/or contact guard assistance as patient completes activity. Assistance may be provided throughout the activity or intermittently. 3-Partial/Moderate Assistance-helper does LESS THAN HALF the effort. [place] lifts, holds or supports trunk or limbs, but provides less than half the effort. 2-Substantial/Maximal Assistance-helper does MORE THAN HALF the effort. [place] lifts or holds trunk or limbs and provides more than half the effort. 4-Cwgmuxpfw-lkfvie does ALL the effort. Patient does none of the effort to complete the activity. Or, the assistance of 2 or more helpers is required for the patient to complete the activity. If activity was not attempted, code reason: 7-Patient Refused. 9-Not Applicable-not attempted and the patient did not perform the activity before the current illness, exacerbation or injury. 10-Not Attempted due to Environmental Limitations-(lack of equipment, weather restraints, etc.). 88-Not Attempted due to Medical Conditions or Safety Concerns. Roll Left & Right (QC): 6 Sit to Lying (QC): 6 Sit to Stand (QC): 6 Chair/Cou-lp-Ejsug Xfer(QC): 6 Weight Bearing Full Weight Bearing Full Weight Bearing Gait Training Does the Patient Walk?: Yes Walk 10 feet (QC): 4 Walk 50 ft with 2 Turns(QC): 4 Gait Persons Needed: 1 Gait Assistive Device: FWW 70ftx2, 50ft CGA, FWW mild dyspnea, not SOB, fatigued with gait Exercises Supine Ex: Bridging, Ankle pumps, Quad Set, Rolling, Glut sets, Heel Slides, Scooting, Straight leg raise (x5 x2 bilat), Hip abd/add Supine Reps: 15 Seated Therapy Exercises: Ankle pumps, Sit to stand, Long arc quads, Hip flexion Seated Reps: 12 Treatments TRFs chair and bed, gait FWW, sup and seated LE exercises, sit to stands all inside room per silvering department supervisor secondary to loose stools Assessment Current Status: Good Progress some fatigue with activity but gives full effort, progress noted PT Short Term Goals Short Term Goals Time Frame: Jan 23, 2022 Roll Left & Right: 6 Sit to lyin Lying to sitting on side of be: 5 Sit to stand: 4 Chair/brs-ml-fesfm transfer: 4 Walk 10 feet: 4 PT Corrugator Helper Goals Corrugator Helper Goals PT Jail Goals Time Frame: Feb 06, 2022 Roll Left & Right (QC): 6 Sit to Lying (QC): 6 Lying-Sitting on Side/Bed(QC): 6 Sit to Stand (QC): 5 Chair/Rve-qq-Djcry Xfer(QC): 5 Toilet Transfer (QC): 5 Car Transfer (QC): 5 Does the Patient Walk: Yes Walk 10 feet (QC): 5 Walk 50ft with 2 Turns (QC): 5 Walk 150 ft (QC): 88 Walking 10ft on Uneven Surface: 5 1 Step (curb) (QC): 3 4 Steps (QC): 88 12 Steps (QC): 88 Picking up an Object (QC): 5 Wheel 50 feet with 2 turns (QC: 6 Wheel 150 feet: 6 PT Plan Treatment/Plan Treatment Plan: Continue Plan of Care Treatment Plan: Bed Mobility, Education, Functional Activity Rani, Functional Strength, Group Therapy, Gait, Safety, Therapeutic Exercise, Transfers Treatment Duration: Feb 06, 2022 Frequency: At least 5 of 7 days/Wk (IRF) Estimated Hrs Per Day: 1.5 hours per day Patient and/or Family Agrees t: Yes Safety Risks/Education Patient Education: Gait Training, Transfer Techniques, Correct Positioning, Disease Process, Safety Issues Teaching Recipient: Patient Teaching Methods: Demonstration, Discussion Response to Teaching: Verbalize Understanding, Return Demonstration, Reinforcement Needed Time/GCodes Time In: 915 Time Out: 1015 Total Billed Treatment Time: 60 Total Billed Treatment 1,GT20m,FA15m,EX25m IOANA VALLES ASTRONOMY TEACHER Jan 24, 2022 10:18
--- NOTE | 2022-01-24 12:06 | Physical Therapy Daily Note ---
PT Daily Note-Current Subjective Pt. agrees to Rx. present and very supportive and informative regarding pts history and function. Pt has had 15 falls in recent past. states she has been doing a lot of care for secondary to his weakness. Pt and states pt uses a lift recline chair at home and has dizziness/disorientation on his feet while making turns bandar in bthrm. states she is very pleased at his progress so far and states he has not been this strong in a very long time Pain Location: No Pain Reported Section J - Health Conditions 1. Rarely or not at all 2. Occasionally 3. Frequently 4. Almost constantly 8. Unable to answer Pain Effect on Sleep: 1 Pain Interference with Therapy: 1 Pain Interference w/Day-to-Day: 1 Mental Status Patient Orientation: Normal For Age Transfers SCALE: Activities may be completed with or without assistive devices. 2-Crpptiqtjv-peinsnq completes the activity by him/herself with no assistance from a helper. 5-Set-up or Clean-up Assistance-helper sets up or cleans up; patient completes activity. [place] assists only prior to or following the activity. 4-Supervision or Touching Assistance-helper provides verbal cues and/or touching/steadying and/or contact guard assistance as patient completes activity. Assistance may be provided throughout the activity or intermittently. 3-Partial/Moderate Assistance-helper does LESS THAN HALF the effort. [place] lifts, holds or supports trunk or limbs, but provides less than half the effort. 2-Substantial/Maximal Assistance-helper does MORE THAN HALF the effort. [place] lifts or holds trunk or limbs and provides more than half the effort. 8-Znnuhjvvs-whbiqb does ALL the effort. Patient does none of the effort to complete the activity. Or, the assistance of 2 or more helpers is required for the patient to complete the activity. If activity was not attempted, code reason: 7-Patient Refused. 9-Not Applicable-not attempted and the patient did not perform the activity before the current illness, exacerbation or injury. 10-Not Attempted due to Environmental Limitations-(lack of equipment, weather restraints, etc.). 88-Not Attempted due to Medical Conditions or Safety Concerns. Roll Left & Right (QC): 6 Lying to Sitting/Side of Bed(Q: 4 Sit to Stand (QC): 6 Chair/Ocj-qu-Lwbbv Xfer(QC): 6 pt. needed assist to guide LUE to rail and guidance and CGA to min assist to come to upright sitting from side using rail . Weight Bearing Full Weight Bearing Full Weight Bearing Gait Training Does the Patient Walk?: Yes Gait Assistive Device: FWW 75 ft x 2 FWW CGA no LOB, Exercises Seated Therapy Exercises: Ankle pumps, Sit to stand, Long arc quads, Hip flexion, Hip abd/add Seated Reps: 15 Treatments in room on arrival and concerned bc she had attempted to help pt. use urinal in bed and had spilled it all over his clothing. Pt. was assisted to sit edge of bed, stood to doff brief and wet pants and assisted to clean up, only slight BM noted, all clean clothing donned with pt. helping and observing process . gait, TRFs, recliner seat padded for extra height, making sit to stand easier for pt. with only SBA needed o stand, p in recliner after Rx with call martinez at hand Assessment Current Status: Good Progress PT Short Term Goals Short Term Goals Time Frame: Jan 23, 2022 Roll Left & Right: 6 Sit to lyin Lying to sitting on side of be: 5 Sit to stand: 4 Chair/rzu-aq-cqwtk transfer: 4 Walk 10 feet: 4 PT Millinery Department Manager Goals Millinery Department Manager Goals PT Millinery Department Manager Goals Time Frame: Feb 06, 2022 Roll Left & Right (QC): 6 Sit to Lying (QC): 6 Lying-Sitting on Side/Bed(QC): 6 Sit to Stand (QC): 5 Chair/Zzj-lc-Pdxcf Xfer(QC): 5 Toilet Transfer (QC): 5 Car Transfer (QC): 5 Does the Patient Walk: Yes Walk 10 feet (QC): 5 Walk 50ft with 2 Turns (QC): 5 Walk 150 ft (QC): 88 Walking 10ft on Uneven Surface: 5 1 Step (curb) (QC): 3 4 Steps (QC): 88 12 Steps (QC): 88 Picking up an Object (QC): 5 Wheel 50 feet with 2 turns (QC: 6 Wheel 150 feet: 6 PT Plan Treatment/Plan Treatment Plan: Continue Plan of Care Treatment Plan: Bed Mobility, Education, Functional Activity Rani, Functional Strength, Group Therapy, Gait, Safety, Therapeutic Exercise, Transfers Treatment Duration: Feb 06, 2022 Frequency: At least 5 of 7 days/Wk (IRF) Estimated Hrs Per Day: 1.5 hours per day Patient and/or Family Agrees t: Yes Safety Risks/Education Patient Education: Gait Training, Transfer Techniques, Correct Positioning, Disease Process, Safety Issues Teaching Recipient: Patient Teaching Methods: Demonstration, Discussion Response to Teaching: Verbalize Understanding, Return Demonstration, Reinforcement Needed Time/GCodes Time In: 1130 Time Out: 1200 Total Billed Treatment Time: 30 Total Billed Treatment 1,GT13m,FA17m IOANA VALLES BUFFING AND POLISHING WHEEL REPAIRER Jan 24, 2022 12:06
[2022-01-24 19:52] VITALS: BP 129/54
[2022-01-24] MEDS: ASPIRIN E.C. 81 MG (ECOTRIN) TAB PO SCH (20:34)
[2022-01-24] MEDS: LATANOPROST 0.005% (XALATAN) OPHTH SOLN 2.5 ML OU SCH (20:36)
--- NOTE | 2022-01-25 05:35 | PM&R Progress Note ---
Subjective HPI/CC On Admission Date Seen by Provider: Jan 25, 2022 Time Seen by Provider: 12:30 Subjective/Events-last exam 01/25/2022: No major concerns at bedside Ozempic reordered No pain 01/24/2022: Improved overall Patient has no complaints Working on the 1 step he will need to step up to get into his house Spoke to 01/23/2022: No major changes Gaining strength No falls No loose stools 01/22/2022: No major issues No falls Increasing strength Loose stools resolved 01/21/2022: No major issues Confusion is noted but is mild No more loose stools Completing cefepime treatment 01/20/2022: Improved status No pain Less loose stools concerned about subtle confusion and I explained his risk factors of out of home and routine and recent illness and likely dementia 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 tolerated for C. difficile colitis Cefepime for Pseudomonas UTI maintained No major concerns at this time Had an episode of chest pain Dr. Sparrow managed Review of Systems General: Fatigue, Malaise Objective Exam Vital Signs Vital Signs Date Time Temp Pulse Resp B/P (MAP) Pulse Ox O2 Delivery O2 Flow Rate FiO2 01/25/22 20:48 Room Air 01/25/22 20:27 37.0 72 20 104/57 (73) 95 Capillary Refill : General Appearance: No Apparent Distress, WD/WN, Chronically ill, Obese HEENT: PERRL/EOMI, Normal ENT Inspection, Pharynx Normal Neck: Full Range of Motion, Normal Inspection, Non Tender, Supple, Carotid Bruit Respiratory: Chest Non Tender, Lungs Clear, Normal Breath Sounds, No Accessory Muscle Use, No Respiratory Distress Cardiovascular: Regular Rate, Rhythm, No Edema, No Gallop, No JVD, No Murmur, Normal Peripheral Pulses Gastrointestinal: Normal Bowel Sounds, No Organomegaly, No Pulsatile Mass, Non Tender, Soft Back: Normal Inspection, No CVA Tenderness, No Vertebral Tenderness Extremity: Normal Capillary Refill, Normal Inspection, Normal Range of Motion, Non Tender, No Calf Tenderness, No Pedal Edema Neurologic/Psychiatric: Alert, Oriented x3, No Motor/Sensory Deficits, steam gigger II- XII Norm as Tested, Depressed Affect, Motor Weakness (generalized) Skin: Normal Color, Warm/Dry Lymphatic: No Adenopathy Results/Procedures Lab Patient resulted labs reviewed. FIM Transfers Therapy Code Descriptions/Definitions Functional [place] Measure: 0=Not Assessed/NA 4=Minimal Assistance 1=Total Assistance 5=Supervision or Setup 2=Maximal Assistance 6=Modified [place] 3=Moderate Assistance 7=Complete IndependenceSCALE: Activities may be completed with or without assistive devices. 6-Snlglapxzq-mbiwybv completes the activity by him/herself with no assistance from a helper. 5-Set-up or Clean-up Assistance-helper sets up or cleans up; patient completes activity. [place] assists only prior to or following the activity. 4-Supervision or Touching Assistance-helper provides verbal cues and/or touching/steadying and/or contact guard assistance as patient completes activity. Assistance may be provided throughout the activity or intermittently. 3-Partial/Moderate Assistance-helper does LESS THAN HALF the effort. [place] lifts, holds or supports trunk or limbs, but provides less than half the effort. 2-Substantial/Maximal Assistance-helper does MORE THAN HALF the effort. [place] lifts or holds trunk or limbs and provides more than half the effort. 3-Hreuqfwra-khwrkp does ALL the effort. Patient does none of the effort to complete the activity. Or, the assistance of 2 or more helpers is required for the patient to complete the activity. If activity was not attempted, code reason: 7-Patient Refused. 9-Not Applicable-not attempted and the patient did not perform the activity before the current illness, exacerbation or injury. 10-Not Attempted due to Environmental Limitations-(lack of equipment, weather restraints, etc.). 88-Not Attempted due to Medical Conditions or Safety Concerns. Roll Left to Right (QC): 6 Sit to Lying (QC): 6 Sit to Stand (QC): 6 Chair/Miz-ug-Sqnmb Xfer(QC): 6 Car Transfer (QC): 4 Gait Training Does the Patient Walk?: Yes Distance: 150' Walk 10 feet (QC): 4 Walk 50 ft with 2 Turns(QC): 4 Walk 150 ft (QC): 3 Walking 10ft/uneven surface-QC: 3 Gait Persons Needed: 1 Gait Assistive Device: FWW Wheelchair Training Does the Pt Use a Wheelchair?: Yes Distance: 120'x2 Wheel 50 ft with 2 turns (QC): 3 Wheel 150 ft (QC): 4 Type of Wheelchair: Manual Stair Training 1 Step (curb) (QC): 88 4 Steps (QC): 88 12 Steps (QC): 88 Balance Picking up an Object (QC): 4 (CGA using a system controller) ADL-Treatment Eating (QC): 6 Oral Hygiene (QC): 6 Bathing Location: L Arm, R Arm, L Upper Leg, R Upper Leg, L Lower Leg (including foot), R Lower Leg (including foot), Chest, Abdomen, Buttocks, Perineal Area Shower/Bathe Self (QC): 6 Upper Body Dressing (QC): 5 Lower Body Dressing (QC): 5 On/Off Footwear (QC): 5 Toileting Hygiene (QC): 3 (Min A) Toilet Transfer (QC): 4 Assessment/Plan Assessment and Plan Assess & Plan/Chief Complaint Assessment: C diff colitis 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 difficile colitis treatment Maintain cefepime for Pseudomonas UTI 01/18/2022: Vanc PO 01/19/2022: Supportive care 01/20/2022: Monitor closely 01/21/2022: Complete vancomycin treatment Completed cefepime 01/22/2022: Monitor closely 01/23/2022: Monitor for loose stools 01/24/2022: Monitor closely 01/25/2022: DC planned Friday (1) C. difficile colitis Status: Acute EDEN FORDE DO Jan 25, 2022 05:35
[2022-01-25 07:08] VITALS: BP 125/72
[2022-01-25] MEDS: TRELEGY ELLIPTA IH SCH (07:32)
--- NOTE | 2022-01-25 08:56 | Occupational Ther Daily Note ---
OT Current Status-Daily Note Subjective Pt alert in recliner. Pt agrees to therapy. No c/o pain at this time. present for family training. Mental Status/Objective Patient Orientation: Person, Place, Time, Situation Acute change in mental status: 0 Inattention: 0 Disorganized thinkin Altered level of consciousness: 0 ADL-Treatment Pt independent in eating. Pt agrees to shower. Pt ambulates to bathroom using FWW, CGA. Pt transfers to toilet using grabbars, CGA. Pt min A in toilet hygiene after pt attempts to cleanse buttocks and is unable. Pt ambulates with FWW to shower bench. Pt doffs LB and UB clothing independent. Pt completes 100% of shower in sitting by self. Pt independent in oral care sitting at sink. Pt ambulates to recliner using FWW, CGA. Pt donned UB and LB clothing after set up. Pt min A in footwear using AE. Pt was reeducated on using AE to don socks. Therapy Code Descriptions/Definitions Functional [place] Measure: 0=Not Assessed/NA 4=Minimal Assistance 1=Total Assistance 5=Supervision or Setup 2=Maximal Assistance 6=Modified [place] 3=Moderate Assistance 7=Complete IndependenceSCALE: Activities may be completed with or without assistive devices. 9-Pxatftwwvn-ibdosdd completes the activity by him/herself with no assistance from a helper. 5-Set-up or Clean-up Assistance-helper sets up or cleans up; patient completes activity. [place] assists only prior to or following the activity. 4-Supervision or Touching Assistance-helper provides verbal cues and/or t ouching/steadying and/or contact guard assistance as patient completes activity. Assistance may be provided throughout the activity or intermittently. 3-Partial/Moderate Assistance-helper does LESS THAN HALF the effort. [place] lifts, holds or supports trunk or limbs, but provides less than half the effort. 2-Substantial/Maximal Assistance-helper does MORE THAN HALF the effort. [place] lifts or holds trunk or limbs and provides more than half the effort. 8-Lsjkzcbnc-ereigf does ALL the effort. Patient does none of the effort to complete the activity. Or, the assistance of 2 or more helpers is required for the patient to complete the activity. If activity was not attempted, code reason: 7-Patient Refused. 9-Not Applicable-not attempted and the patient did not perform the activity before the current illness, exacerbation or injury. 10-Not Attempted due to Environmental Limitations-(lack of equipment, weather restraints, etc.). 88-Not Attempted due to Medical Conditions or Safety Concerns. Eating (QC): 6 Oral Hygiene (QC): 6 Bathing Location: L Arm, R Arm, L Upper Leg, R Upper Leg, L Lower Leg (including foot), R Lower Leg (including foot), Chest, Abdomen, Buttocks, Perineal Area Shower/Bathe Self (QC): 6 Upper Body Dressing (QC): 5 Lower Body Dressing (QC): 5 On/Off Footwear: 3 Toileting Hygiene (QC): 3 Toilet Transfer (QC): 4 Other Treatment OT/PT cotreat due to skill of 2 clinicians required which a clinical rehabilitation coordinator could not perform in order to coordinate UE/LEs, decrease fall risk, and due to pt's limitations in strength, activity tolerance, and for family training. OT focused on ADLs, UE placement, cues for sequencing and safety, PT focused on LE placement, gross overall movement, mobility/transfers. Pt's educated on assistance level with ADLs, and AE. Pt and then performed functional mobility and transfers using FWW, w/c, bed mobility. Pt's verbalizes understanding and states no further concerns at this time. Pt was left sitting in recliner, call light/phone in reach. All needs met in room. Education OT Patient Education: Correct positioning, Energy conservation, Modified ADL techniques, Progress toward Goal/Update tx plan, Purpose of tx/functional activities, Rehab process, Use of adapted equipment Teaching Recipient: Patient, Family Teaching Methods: Demonstration, Discussion Response to Teaching: Verbalize Understanding, Return Demonstration OT Senior Living Goals Senior Living Goals Time Frame: Feb 08, 2022 Acute change in mental status: 0 Inattention: 0 Disorganized thinkin Altered level of consciousness: 0 Eating (QC): 6 Oral Hygiene (QC): 4 (SBA with education on importance of oral hygiene) Toileting Hygiene (QC): 6 Shower/Bathe Self (QC): 6 Upper Body Dressing (QC): 5 Lower Body Dressing (QC): 5 On/Off Footwear (QC): 5 Additional Goals: 1-Demonstrate ADL Tasks, 2-Verbalize Understanding, 3- ImproveStrength/Rani 1=Demonstrate adherence to instructed precautions during ADL tasks. 2=Patient will verbalize/demonstrate understanding of assistive devices/modifications for ADL. 3=Patient will improve strength/tolerance for activity to enable patient to perform ADL's. OT Education/Plan Problem List/Assessment Assessment: Decreased Activ Tolerance, Decreased Safety Aware, Impaired Coordination, Impaired Funct Balance, Impaired Self-Care Skills Pt is currently at his PLOF with ADLs, but per physician orders and rehab process, OT will see pt for continued UE strengthening, activity tolerance, and increasing level of independence with ADLs and functional mobility. Discharge Recommendations Plan/Recommendations: Continue POC Equpiment Recommendations-D/C: Hip Kit Treatment Plan/Plan of Care Patient would benefit from OT for education, treatment and training to promote independence in ADL's, mobility, safety and/or upper extremity function for ADL's. Plan of Care: ADL Retraining, Functional Mobility, Group Exercise/Act as Ind, UE Funct Exercise/Act Treatment Duration: Feb 08, 2022 Frequency: At least 5 of 7 days/Wk (IRF) Estimated Hrs Per Day: 1.5 hours per day Agreement: Yes Rehab Potential: Fair Time/GCodes Start Time: 07:30 Stop Time: 09:00 Total Time Billed (hr/min): 90 Billed Treatment Time OT tx x30', [place] x60' 1, ADL 3 (45 min), FA 3 (45') MARLEY MCCOY OT Jan 25, 2022 08:56
--- NOTE | 2022-01-25 08:59 | Physical Therapy Daily Note ---
PT Daily Note-Current Subjective Pt. and present for PT OT co Rx education session. Pt. denies any pain, c/o some fatigue with Rx. Pain Location: No Pain Reported Section J - Health Conditions 1. Rarely or not at all 2. Occasionally 3. Frequently 4. Almost constantly 8. Unable to answer Pain Effect on Sleep: 1 Pain Interference with Therapy: 1 Pain Interference w/Day-to-Day: 1 Mental Status Patient Orientation: Normal For Age Transfers SCALE: Activities may be completed with or without assistive devices. 0-Mwklskbtbd-nhqtnpf completes the activity by him/herself with no assistance from a helper. 5-Set-up or Clean-up Assistance-helper sets up or cleans up; patient completes activity. [place] assists only prior to or following the activity. 4-Supervision or Touching Assistance-helper provides verbal cues and/or touching/steadying and/or contact guard assistance as patient completes activity. Assistance may be provided throughout the activity or intermittently. 3-Partial/Moderate Assistance-helper does LESS THAN HALF the effort. [place] lifts, holds or supports trunk or limbs, but provides less than half the effort. 2-Substantial/Maximal Assistance-helper does MORE THAN HALF the effort. [place] lifts or holds trunk or limbs and provides more than half the effort. 2-Eqbnnccqu-epvrkx does ALL the effort. Patient does none of the effort to complete the activity. Or, the assistance of 2 or more helpers is required for the patient to complete the activity. If activity was not attempted, code reason: 7-Patient Refused. 9-Not Applicable-not attempted and the patient did not perform the activity before the current illness, exacerbation or injury. 10-Not Attempted due to Environmental Limitations-(lack of equipment, weather restraints, etc.). 88-Not Attempted due to Medical Conditions or Safety Concerns. Roll Left & Right (QC): 6 Sit to Lying (QC): 6 Lying to Sitting/Side of Bed(Q: 6 Sit to Stand (QC): 6 Chair/Qog-re-Cwnmg Xfer(QC): 4 much emphasis on safe sit to stands, no plopping and using hands for ascent and descent , observes and demonstrates she can cue pt. for all TRFs Weight Bearing Full Weight Bearing Full Weight Bearing Gait Training Does the Patient Walk?: Yes Walk 10 feet (QC): 4 Walk 50 ft with 2 Turns(QC): 4 Gait Persons Needed: 1 Gait Assistive Device: FWW 30ftx3, 20ftx1 FWW CGA , pt. had one melting episode at knees , w/c was close behind, Exercises Supine Ex: Bridging, Ankle pumps, Lower trunk rotation, Heel Slides, Straight leg raise Supine Reps: 8 (x2) Treatments PT OT co Rx for training and education with for DC. has apparently done nearly everything for pt. previous to this. And pt. expects it. However pt. has shown indep for all showering and dressing (see OT portion) pt. can sit to s tand from slightly raised seat heights mod I, can TRF in out bed Mod I, walked 30 to 40 ft x 3, household dist with SBA. demonstrated ind to use w/c 150 ft and brake etc. demonstrated ability to cue pt. appropriately. PT OT co Rx for wifes availability for education session Assessment Current Status: Good Progress pt. is fairly dependent on but through the course of Rehab has surprised her with his ability to walk and TRF and dress himself. PT Short Term Goals Short Term Goals Time Frame: Jan 23, 2022 Roll Left & Right: 6 Sit to lyin Lying to sitting on side of be: 5 Sit to stand: 4 Chair/sxo-qi-bphlx transfer: 4 Walk 10 feet: 4 PT Feather Separator Goals Feather Separator Goals PT Feather Separator Goals Time Frame: Feb 06, 2022 Roll Left & Right (QC): 6 Sit to Lying (QC): 6 Lying-Sitting on Side/Bed(QC): 6 Sit to Stand (QC): 5 Chair/Bxh-wq-Wslop Xfer(QC): 5 Toilet Transfer (QC): 5 Car Transfer (QC): 5 Does the Patient Walk: Yes Walk 10 feet (QC): 5 Walk 50ft with 2 Turns (QC): 5 Walk 150 ft (QC): 88 Walking 10ft on Uneven Surface: 5 1 Step (curb) (QC): 3 4 Steps (QC): 88 12 Steps (QC): 88 Picking up an Object (QC): 5 Wheel 50 feet with 2 turns (QC: 6 Wheel 150 feet: 6 PT Plan Treatment/Plan Treatment Plan: Continue Plan of Care Treatment Plan: Bed Mobility, Education, Functional Activity Rani, Functional Strength, Group Therapy, Gait, Safety, Therapeutic Exercise, Transfers Treatment Duration: Feb 06, 2022 Frequency: At least 5 of 7 days/Wk (IRF) Estimated Hrs Per Day: 1.5 hours per day Patient and/or Family Agrees t: Yes Safety Risks/Education Patient Education: Gait Training, Transfer Techniques, Correct Positioning, W/C Management, Disease Process, Safety Issues Teaching Recipient: Patient, Primary Caregiver, Family Teaching Methods: Demonstration, Discussion Response to Teaching: Verbalize Understanding, Return Demonstration, Reinforcement Needed Time/GCodes Time In: 800 Time Out: 900 Total Billed Treatment Time: 60 Total Billed Treatment 1,GT15m,FA15M,wc15M,ex15M (60 M CO Rx) IOANA VALLES ELECTRIC GOLF CART REPAIRER Jan 25, 2022 08:59
[2022-01-25] MEDS: VANCOMYCIN 125 MG CAPSULE PO SCH ×4 (09:01→20:18)
[2022-01-25] MEDS: FAMOTIDINE 20 MG (PEPCID) TABLET PO SCH (09:01)
[2022-01-25] MEDS: TAMSULOSIN 0.4 MG (FLOMAX) CAP PO SCH ×2 (09:01→20:18)
[2022-01-25] MEDS: APIXABAN 5 MG (ELIQUIS) TABLET PO SCH ×2 (09:02→20:18)
[2022-01-25] MEDS: KCL 8 MEQ (MICRO K) TABLET PO SCH (09:02)
[2022-01-25] MEDS: SERTRALINE 50 MG (ZOLOFT) TABLET PO SCH (09:02)
[2022-01-25] MEDS: EMPAGLIFLOZIN 10 MG TABLET (JARDIANCE) PO SCH (09:02)
[2022-01-25] MEDS: FUROSEMIDE 20 MG (LASIX) TAB PO SCH (09:02)
[2022-01-25] MEDS: meTOprolol TARTRATE 50 MG (LOPRESSOR) TAB PO SCH ×2 (09:03→20:19)
[2022-01-25] MEDS: CALCIUM CARB + VIT D 600 MG (CALCARB + D) TAB PO SCH (09:04)
[2022-01-25] MEDS: INSULIN DEGLUDEC SQ SCH (09:07)
[2022-01-25] MEDS: MICONAZOLE 2% POWDER (DESENEX AF) 90 GM TOP SCH ×2 (09:08→20:25)
--- NOTE | 2022-01-25 14:40 | Physical Therapy Daily Note ---
PT Daily Note-Current Subjective Pt. and present. states she is so happy to see her so much stronger, stronger than he has been in more than a year. states she is not at all worried abouut taking hoe to care for Pain Location: No Pain Reported Section J - Health Conditions 1. Rarely or not at all 2. Occasionally 3. Frequently 4. Almost constantly 8. Unable to answer Pain Effect on Sleep: 1 Pain Interference with Therapy: 1 Pain Interference w/Day-to-Day: 1 Mental Status Patient Orientation: Normal For Age Transfers SCALE: Activities may be completed with or without assistive devices. 9-Wdpzpfmyml-fjktlqb completes the activity by him/herself with no assistance from a helper. 5-Set-up or Clean-up Assistance-helper sets up or cleans up; patient completes activity. [place] assists only prior to or following the activity. 4-Supervision or Touching Assistance-helper provides verbal cues and/or touching/steadying and/or contact guard assistance as patient completes activity. Assistance may be provided throughout the activity or intermittently. 3-Partial/Moderate Assistance-helper does LESS THAN HALF the effort. [place] lifts, holds or supports trunk or limbs, but provides less than half the effort. 2-Substantial/Maximal Assistance-helper does MORE THAN HALF the effort. [place] lifts or holds trunk or limbs and provides more than half the effort. 2-Hbqqhvpwv-cjugdj does ALL the effort. Patient does none of the effort to complete the activity. Or, the assistance of 2 or more helpers is required for the patient to complete the activity. If activity was not attempted, code reason: 7-Patient Refused. 9-Not Applicable-not attempted and the patient did not perform the activity before the current illness, exacerbation or injury. 10-Not Attempted due to Environmental Limitations-(lack of equipment, weather restraints, etc.). 88-Not Attempted due to Medical Conditions or Safety Concerns. all sit to stand CGA to SBA from bed and multiple chairs Weight Bearing Full Weight Bearing Full Weight Bearing Gait Training Does the Patient Walk?: Yes Walk 10 feet (QC): 4 Walk 50 ft with 2 Turns(QC): 4 Gait Persons Needed: 1 Gait Assistive Device: FWW 45 ft x 2, 55 ft x 2 SBA to CGA w/c to f/u, no LOB, fatigue noted with rest between Exercises Seated Therapy Exercises: Ankle pumps, Sit to stand, Long arc quads, Hip flexion, Hip abd/add Seated Reps: 12 Treatments pt. and working on dressing pt as this EPIC BEACON ANALYST arrived as pt. had spilled the urinal on himself. Pt. did the dressing, assisting by handing him clean items, TRFs gait as above, up in recliner after Rx with martinez at hand, staying Assessment Current Status: Good Progress PT Short Term Goals Short Term Goals Time Frame: Jan 23, 2022 Roll Left & Right: 6 Sit to lyin Lying to sitting on side of be: 5 Sit to stand: 4 Chair/qns-ww-vlfgw transfer: 4 Walk 10 feet: 4 PT [place] Trouble Shooter Goals Longterm Goals PT Longterm Goals Time Frame: Feb 06, 2022 Roll Left & Right (QC): 6 Sit to Lying (QC): 6 Lying-Sitting on Side/Bed(QC): 6 Sit to Stand (QC): 5 Chair/Wsm-or-Euytc Xfer(QC): 5 Toilet Transfer (QC): 5 Car Transfer (QC): 5 Does the Patient Walk: Yes Walk 10 feet (QC): 5 Walk 50ft with 2 Turns (QC): 5 Walk 150 ft (QC): 88 Walking 10ft on Uneven Surface: 5 1 Step (curb) (QC): 3 4 Steps (QC): 88 12 Steps (QC): 88 Picking up an Object (QC): 5 Wheel 50 feet with 2 turns (QC: 6 Wheel 150 feet: 6 PT Plan Treatment/Plan Treatment Plan: Continue Plan of Care Treatment Plan: Bed Mobility, Education, Functional Activity Rani, Functional Strength, Group Therapy, Gait, Safety, Therapeutic Exercise, Transfers Treatment Duration: Feb 06, 2022 Frequency: At least 5 of 7 days/Wk (IRF) Estimated Hrs Per Day: 1.5 hours per day Patient and/or Family Agrees t: Yes Safety Risks/Education Patient Education: Gait Training, Transfer Techniques, Correct Positioning, Safety Issues Teaching Recipient: Patient, Family Teaching Methods: Demonstration, Discussion Response to Teaching: Verbalize Understanding, Return Demonstration, Reinforcement Needed Time/GCodes Time In: 1405 Time Out: 1435 Total Billed Treatment Time: 30 Total Billed Treatment 1,GT20m,FA10m IOANA VALLES EPIC BEACON ANALYST Jan 25, 2022 14:40
[2022-01-25] MEDS: ASPIRIN E.C. 81 MG (ECOTRIN) TAB PO SCH (20:18)
[2022-01-25] MEDS: LATANOPROST 0.005% (XALATAN) OPHTH SOLN 2.5 ML OU SCH (20:20)
[2022-01-25 20:27] VITALS: BP 104/57
--- NOTE | 2022-01-26 06:30 | PM&R Progress Note ---
Subjective HPI/CC On Admission Date Seen by Provider: Jan 26, 2022 Time Seen by Provider: 11:30 Subjective/Events-last exam 01/26/2022: Patient doing well at bedside Talked about C diff No pain 01/25/2022: No major concerns at bedside Ozempic reordered No pain 01/24/2022: Improved overall Patient has no complaints Working on the 1 step he will need to step up to get into his house Spoke to 01/23/2022: No major changes Gaining strength No falls No loose stools 01/22/2022: No major issues No falls Increasing strength Loose stools resolved 01/21/2022: No major issues Confusion is noted but is mild No more loose stools Completing cefepime treatment 01/20/2022: Improved status No pain Less loose stools concerned about subtle confusion and I explained his risk factors of out of home and routine and recent illness and likely dementia early signs due to advanced age 86 01/19/2022: Patient much improved and granddaughters at the bedside No more loose stools Pseudomonas treatment tolerated 01/18/2022: Improved status Less diarrhea Vanc PO tolerated Cefepime IV 01/17/2022: Patient having a good day Less diarrhea Vancomycin p.o. tolerated for C. difficile colitis Cefepime for Pseudomonas UTI maintained No major concerns at this time Had an episode of chest pain Dr. Sparrow managed Review of Systems General: Fatigue, Malaise Objective Exam Vital Signs Vital Signs Date Time Temp Pulse Resp B/P (MAP) Pulse Ox O2 Delivery O2 Flow Rate FiO2 01/26/22 09:00 Room Air 01/26/22 08:00 36.2 73 18 114/57 (76) 94 01/26/22 07:20 0.00 Capillary Refill : General Appearance: No Apparent Distress, WD/WN, Chronically ill, Obese HEENT: PERRL/EOMI, Normal ENT Inspection, Pharynx Normal Neck: Full Range of Motion, Normal Inspection, Non Tender, Supple, Carotid Bruit Respiratory: Chest Non Tender, Lungs Clear, Normal Breath Sounds, No Accessory Muscle Use, No Respiratory Distress Cardiovascular: Regular Rate, Rhythm, No Edema, No Gallop, No JVD, No Murmur, N ormal Peripheral Pulses Gastrointestinal: Normal Bowel Sounds, No Organomegaly, No Pulsatile Mass, Non Tender, Soft Back: Normal Inspection, No CVA Tenderness, No Vertebral Tenderness Extremity: Normal Capillary Refill, Normal Inspection, Normal Range of Motion, Non Tender, No Calf Tenderness, No Pedal Edema Neurologic/Psychiatric: Alert, Oriented x3, No Motor/Sensory Deficits, referral coordinator II- XII Norm as Tested, Depressed Affect, Motor Weakness (generalized) Skin: Normal Color, Warm/Dry Lymphatic: No Adenopathy Results/Procedures Lab Patient resulted labs reviewed. FIM Transfers Therapy Code Descriptions/Definitions Functional [place] Measure: 0=Not Assessed/NA 4=Minimal Assistance 1=Total Assistance 5=Supervision or Setup 2=Maximal Assistance 6=Modified [place] 3=Moderate Assistance 7=Complete IndependenceSCALE: Activities may be completed with or without assistive devices. 0-Xruhryceel-vcstbvv completes the activity by him/herself with no assistance from a helper. 5-Set-up or Clean-up Assistance-helper sets up or cleans up; patient completes activity. [place] assists only prior to or following the activity. 4-Supervision or Touching Assistance-helper provides verbal cues and/or touching/steadying and/or contact guard assistance as patient completes activity. Assistance may be provided throughout the activity or intermittently. 3-Partial/Moderate Assistance-helper does LESS THAN HALF the effort. Ray lifts, holds or supports trunk or limbs, but provides less than half the effort. 2-Substantial/Maximal Assistance-helper does MORE THAN HALF the effort. Ray lifts or holds trunk or limbs and provides more than half the effort. 8-Mjajmhqfl-hhfxxl does ALL the effort. Patient does none of the effort to complete the activity. Or, the assistance of 2 or more helpers is required for the patient to complete the activity. If activity was not attempted, code reason: 7-Patient Refused. 9-Not Applicable-not attempted and the patient did not perform the activity before the current illness, exacerbation or injury. 10-Not Attempted due to Environmental Limitations-(lack of equipment, weather restraints, etc.). 88-Not Attempted due to Medical Conditions or Safety Concerns. Roll Left to Right (QC): 6 Sit to Lying (QC): 6 Sit to Stand (QC): 6 Chair/Mss-pa-Wemxo Xfer(QC): 4 Car Transfer (QC): 4 Gait Training Does the Patient Walk?: Yes Distance: 150' Walk 10 feet (QC): 4 Walk 50 ft with 2 Turns(QC): 4 Walk 150 ft (QC): 3 Walking 10ft/uneven surface-QC: 3 Gait Persons Needed: 1 Gait Assistive Device: FWW Wheelchair Training Does the Pt Use a Wheelchair?: Yes Distance: 120'x2 Wheel 50 ft with 2 turns (QC): 3 Wheel 150 ft (QC): 4 Type of Wheelchair: Manual Stair Training 1 Step (curb) (QC): 88 4 Steps (QC): 88 12 Steps (QC): 88 Balance Picking up an Object (QC): 4 (CGA using a sewer and drain technician) ADL-Treatment Eating (QC): 6 Oral Hygiene (QC): 6 Bathing Location: L Arm, R Arm, L Upper Leg, R Upper Leg, L Lower Leg (including foot), R Lower Leg (including foot), Chest, Abdomen, Buttocks, Perineal Area Shower/Bathe Self (QC): 6 Upper Body Dressing (QC): 5 Lower Body Dressing (QC): 5 On/Off Footwear (QC): 3 Toileting Hygiene (QC): 3 Toilet Transfer (QC): 4 Assessment/Plan Assessment and Plan Assess & Plan/Chief Complaint Assessment: C diff colitis 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 difficile colitis treatment Maintain cefepime for Pseudomonas UTI 01/18/2022: Vanc PO 01/19/2022: Supportive care 01/20/2022: Monitor closely 01/21/2022: Complete vancomycin treatment Completed cefepime 01/22/2022: Monitor closely 01/23/2022: Monitor for loose stools 01/24/2022: Monitor closely 01/25/2022: DC planned Friday01/26/2022: Monitor closely Fall risk (1) C. difficile colitis Status: Acute EDEN FORDE DO Jan 26, 2022 06:30
[2022-01-26] MEDS: TRELEGY ELLIPTA IH SCH (07:20)
[2022-01-26 08:00] VITALS: BP 114/57
[2022-01-26] MEDS: CALCIUM CARB + VIT D 600 MG (CALCARB + D) TAB PO SCH (08:00)
[2022-01-26] MEDS: SERTRALINE 50 MG (ZOLOFT) TABLET PO SCH (08:35)
[2022-01-26] MEDS: TAMSULOSIN 0.4 MG (FLOMAX) CAP PO SCH ×2 (08:35→20:33)
[2022-01-26] MEDS: FUROSEMIDE 20 MG (LASIX) TAB PO SCH (08:36)
[2022-01-26] MEDS: KCL 8 MEQ (MICRO K) TABLET PO SCH (08:36)
[2022-01-26] MEDS: VANCOMYCIN 125 MG CAPSULE PO SCH ×2 (08:36→13:21)
[2022-01-26] MEDS: APIXABAN 5 MG (ELIQUIS) TABLET PO SCH ×2 (08:36→20:33)
[2022-01-26] MEDS: FAMOTIDINE 20 MG (PEPCID) TABLET PO SCH (08:37)
[2022-01-26] MEDS: meTOprolol TARTRATE 50 MG (LOPRESSOR) TAB PO SCH ×2 (08:37→20:34)
[2022-01-26] MEDS: EMPAGLIFLOZIN 10 MG TABLET (JARDIANCE) PO SCH (08:37)
[2022-01-26] MEDS: MICONAZOLE 2% POWDER (DESENEX AF) 90 GM TOP SCH ×2 (08:42→20:34)
[2022-01-26] MEDS: INSULIN DEGLUDEC SQ SCH (08:44)
--- NOTE | 2022-01-26 11:59 | Physical Therapy Daily Note ---
PT Daily Note-Current Subjective Upon arrival, pt was seated in recliner. Pt states that he has no pain and slept well. Pt agrees to PT. Pain Section J - Health Conditions 1. Rarely or not at all 2. Occasionally 3. Frequently 4. Almost constantly 8. Unable to answer Pain Effect on Sleep: 1 Pain Interference with Therapy: 1 Pain Interference w/Day-to-Day: 1 Mental Status Patient Orientation: Person, Situation Transfers SCALE: Activities may be completed with or without assistive devices. 1-Xwcadxafcr-gmwfghb completes the activity by him/herself with no assistance from a helper. 5-Set-up or Clean-up Assistance-helper sets up or cleans up; patient completes activity. [place] assists only prior to or following the activity. 4-Supervision or Touching Assistance-helper provides verbal cues and/or touching/steadying and/or contact guard assistance as patient completes activity. Assistance may be provided throughout the activity or intermittently. 3-Partial/Moderate Assistance-helper does LESS THAN HALF the effort. [place] lifts, holds or supports trunk or limbs, but provides less than half the effort. 2-Substantial/Maximal Assistance-helper does MORE THAN HALF the effort. [place] lifts or holds trunk or limbs and provides more than half the effort. 1-Tfdfbuyfc-nltfmu does ALL the effort. Patient does none of the effort to complete the activity. Or, the assistance of 2 or more helpers is required for the patient to complete the activity. If activity was not attempted, code reason: 7-Patient Refused. 9-Not Applicable-not attempted and the patient did not perform the activity before the current illness, exacerbation or injury. 10-Not Attempted due to Environmental Limitations-(lack of equipment, weather restraints, etc.). 88-Not Attempted due to Medical Conditions or Safety Concerns. Weight Bearing Full Weight Bearing Full Weight Bearing Gait Training Does the Patient Walk?: No and Walking Goal IS indicated Exercises Supine Ex: Ankle pumps (20), Heel Slides, Straight leg raise, Hip abd/add Supine Reps: 15 Seated Therapy Exercises: Ankle pumps, Long arc quads, Hip flexion, Hamstring Curls Seated Reps: 15 Treatments Pt completed all activities listed above. As pt continued with PT, pts family member arrives. Pts family member asks about having copies of the exercises that the pt has done. PT states she will let lead PT know. As PT concluded, pt had call light and tray in reach and all needs met. As PT exits pts room, pts family member was present. Assessment Current Status: Good Progress Pt would benefit from continued PT to improve on strength, and activity tolerance. PT Short Term Goals Short Term Goals Time Frame: Jan 23, 2022 Roll Left & Right: 6 Sit to lyin Lying to sitting on side of be: 5 Sit to stand: 4 Chair/yxz-ji-xnslf transfer: 4 Walk 10 feet: 4 PT Children'S Minister Goals Skilled Nursing Goals PT Skilled Nursing Goals Time Frame: Feb 06, 2022 Roll Left & Right (QC): 6 Sit to Lying (QC): 6 Lying-Sitting on Side/Bed(QC): 6 Sit to Stand (QC): 5 Chair/Lok-wy-Yvhxr Xfer(QC): 5 Toilet Transfer (QC): 5 Car Transfer (QC): 5 Does the Patient Walk: Yes Walk 10 feet (QC): 5 Walk 50ft with 2 Turns (QC): 5 Walk 150 ft (QC): 88 Walking 10ft on Uneven Surface: 5 1 Step (curb) (QC): 3 4 Steps (QC): 88 12 Steps (QC): 88 Picking up an Object (QC): 5 Wheel 50 feet with 2 turns (QC: 6 Wheel 150 feet: 6 PT Plan Problem List Problem List: Activity Tolerance, Functional Strength Treatment/Plan Treatment Plan: Continue Plan of Care Treatment Plan: Bed Mobility, Education, Functional Activity Rani, Functional Strength, Group Therapy, Gait, Safety, Therapeutic Exercise, Transfers Treatment Duration: Feb 06, 2022 Frequency: At least 5 of 7 days/Wk (IRF) Estimated Hrs Per Day: 1.5 hours per day Patient and/or Family Agrees t: Yes Safety Risks/Education Pts family member was wondering about having a copy of the pts HEP for pt to have. Time/GCodes Time In: 1046 Time Out: 1101 Total Billed Treatment Time: 15 Total Billed Treatment 1, Ex EVELIN CRUZ OVER THE ROAD DRIVER Jan 26, 2022 11:59
[2022-01-26 19:01] VITALS: BP 127/59
[2022-01-26] MEDS: ASPIRIN E.C. 81 MG (ECOTRIN) TAB PO SCH (20:33)
[2022-01-26] MEDS: LATANOPROST 0.005% (XALATAN) OPHTH SOLN 2.5 ML OU SCH (20:34)
[2022-01-27 07:00] VITALS: BP 134/61
[2022-01-27] MEDS: TRELEGY ELLIPTA IH SCH (07:32)
--- NOTE | 2022-01-27 08:01 | PM&R Progress Note ---
Subjective HPI/CC On Admission Date Seen by Provider: Jan 27, 2022 Time Seen by Provider: 11:00 Subjective/Events-last exam 01/27/2022: Improved status No changes No loose stools 01/26/2022: Patient doing well at bedside Talked about C diff No pain 01/25/2022: No major concerns at bedside Ozempic reordered No pain 01/24/2022: Improved overall Patient has no complaints Working on the 1 step he will need to step up to get into his house Spoke to 01/23/2022: No major changes Gaining strength No falls No loose stools 01/22/2022: No major issues No falls Increasing strength Loose stools resolved 01/21/2022: No major issues Confusion is noted but is mild No more loose stools Completing cefepime treatment 01/20/2022: Improved status No pain Less loose stools concerned about subtle confusion and I explained his risk factors of out of home and routine and recent illness and likely dementia early signs due to advanced age 86 01/19/2022: Patient much improved and granddaughters at the bedside No more loose stools Pseudomonas treatment tolerated 01/18/2022: Improved status Less diarrhea Vanc PO tolerated Cefepime IV 01/17/2022: Patient having a good day Less diarrhea Vancomycin p.o. tolerated for C. difficile colitis Cefepime for Pseudomonas UTI maintained No major concerns at this time Had an episode of chest pain Dr. Sparrow managed Review of Systems General: Fatigue, Malaise Objective Exam Vital Signs Vital Signs Date Time Temp Pulse Resp B/P (MAP) Pulse Ox O2 Delivery O2 Flow Rate FiO2 01/27/22 09:51 Room Air 01/27/22 07:32 92 0.00 01/27/22 07:00 36.1 69 20 134/61 (85) Capillary Refill : General Appearance: No Apparent Distress, WD/WN, Chronically ill, Obese HEENT: PERRL/EOMI, Normal ENT Inspection, Pharynx Normal Neck: Full Range of Motion, Normal Inspection, Non Tender, Supple, Carotid Bruit Respiratory: Chest Non Tender, Lungs Clear, Normal Breath Sounds, No Accessory Muscle Use, No Respiratory Distress Cardiovascular: Regular Rate, Rhythm, No Edema, No Gallop, No JVD, No Murmur, Normal Peripheral Pulses Gastrointestinal: Normal Bowel Sounds, No Organomegaly, No Pulsatile Mass, Non Tender, Soft Back: Normal Inspection, No CVA Tenderness, No Vertebral Tenderness Extremity: Normal Capillary Refill, Normal Inspection, Normal Range of Motion, Non Tender, No Calf Tenderness, No Pedal Edema Neurologic/Psychiatric: Alert, Oriented x3, No Motor/Sensory Deficits, tacker elastic band II- XII Norm as Tested, Depressed Affect, Motor Weakness (generalized) Skin: Normal Color, Warm/Dry Lymphatic: No Adenopathy Results/Procedures Lab Laboratory Tests 01/27/22 16:04 Patient resulted labs reviewed. FIM Transfers Therapy Code Descriptions/Definitions Functional [place] Measure: 0=Not Assessed/NA 4=Minimal Assistance 1=Total Assistance 5=Supervision or Setup 2=Maximal Assistance 6=Modified [place] 3=Moderate Assistance 7=Complete IndependenceSCALE: Activities may be completed with or without assistive devices. 3-Dgtxzkrjmz-tazxrtb completes the activity by him/herself with no assistance from a helper. 5-Set-up or Clean-up Assistance-helper sets up or cleans up; patient completes activity. [place] assists only prior to or following the activity. 4-Supervision or Touching Assistance-helper provides verbal cues and/or touching/steadying and/or contact guard assistance as patient completes activity. Assistance may be provided throughout the activity or intermittently. 3-Partial/Moderate Assistance-helper does LESS THAN HALF the effort. [place] lifts, holds or supports trunk or limbs, but provides less than half the effort. 2-Substantial/Maximal Assistance-helper does MORE THAN HALF the effort. [place] lifts or holds trunk or limbs and provides more than half the effort. 7-Dwwudupeg-rwvrce does ALL the effort. Patient does none of the effort to complete the activity. Or, the assistance of 2 or more helpers is required for the patient to complete the activity. If activity was not attempted, code reason: 7-Patient Refused. 9-Not Applicable-not attempted and the patient did not perform the activity before the current illness, exacerbation or injury. 10-Not Attempted due to Environmental Limitations-(lack of equipment, weather restraints, etc.). 88-Not Attempted due to Medical Conditions or Safety Concerns. Roll Left to Right (QC): 6 Sit to Lying (QC): 6 Sit to Stand (QC): 6 Chair/Pgc-ik-Tnnbo Xfer(QC): 4 Car Transfer (QC): 4 Gait Training Does the Patient Walk?: No and Walking Goal IS indicated Distance: 150' Walk 10 feet (QC): 4 Walk 50 ft with 2 Turns(QC): 4 Walk 150 ft (QC): 3 Walking 10ft/uneven surface-QC: 3 Gait Persons Needed: 1 Gait Assistive Device: FWW Wheelchair Training Does the Pt Use a Wheelchair?: Yes Distance: 120'x2 Wheel 50 ft with 2 turns (QC): 3 Wheel 150 ft (QC): 4 Type of Wheelchair: Manual Stair Training 1 Step (curb) (QC): 88 4 Steps (QC): 88 12 Steps (QC): 88 Balance Picking up an Object (QC): 4 (CGA using a java development manager) ADL-Treatment Eating (QC): 6 Oral Hygiene (QC): 6 Bathing Location: L Arm, R Arm, L Upper Leg, R Upper Leg, L Lower Leg (includi ng foot), R Lower Leg (including foot), Chest, Abdomen, Buttocks, Perineal Area Shower/Bathe Self (QC): 6 Upper Body Dressing (QC): 5 Lower Body Dressing (QC): 5 On/Off Footwear (QC): 3 Toileting Hygiene (QC): 3 Toilet Transfer (QC): 4 Assessment/Plan Assessment and Plan Assess & Plan/Chief Complaint Assessment: C diff colitis 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 difficile colitis treatment Maintain cefepime for Pseudomonas UTI 01/18/2022: Vanc PO 01/19/2022: Supportive care 01/20/2022: Monitor closely 01/21/2022: Complete vancomycin treatment Completed cefepime 01/22/2022: Monitor closely 01/23/2022: Monitor for loose stools 01/24/2022: Monitor closely 01/25/2022: DC planned Friday01/26/2022: Monitor closely Fall risk 01/27/2022: Monitor closely (1) C. difficile colitis Status: Acute EDEN FORDE DO Jan 27, 2022 08:01
[2022-01-27] MEDS: CALCIUM CARB + VIT D 600 MG (CALCARB + D) TAB PO SCH (09:59)
[2022-01-27] MEDS: TAMSULOSIN 0.4 MG (FLOMAX) CAP PO SCH ×2 (10:03→20:05)
[2022-01-27] MEDS: EMPAGLIFLOZIN 10 MG TABLET (JARDIANCE) PO SCH (10:03)
[2022-01-27] MEDS: FAMOTIDINE 20 MG (PEPCID) TABLET PO SCH (10:03)
[2022-01-27] MEDS: APIXABAN 5 MG (ELIQUIS) TABLET PO SCH ×2 (10:04→20:05)
[2022-01-27] MEDS: FUROSEMIDE 20 MG (LASIX) TAB PO SCH (10:04)
[2022-01-27] MEDS: KCL 8 MEQ (MICRO K) TABLET PO SCH (10:05)
[2022-01-27] MEDS: SERTRALINE 50 MG (ZOLOFT) TABLET PO SCH (10:05)
[2022-01-27] MEDS: meTOprolol TARTRATE 50 MG (LOPRESSOR) TAB PO SCH ×2 (10:07→20:06)
[2022-01-27] MEDS: INSULIN DEGLUDEC SQ SCH (10:23)
[2022-01-27] MEDS: MICONAZOLE 2% POWDER (DESENEX AF) 90 GM TOP SCH ×2 (11:29→20:33)
[2022-01-27 16:07] LABS: MEAN CORPUSCULAR HEMOGLOBIN 28 pg (25-34); MEAN CORPUSCULAR HGB CONC 31 g/dL (32-36); MEAN CORPUSCULAR VOLUME 90 fL (80-99)
[2022-01-27 16:09] LABS: BASOPHILS # (AUTO) 0.1 10^3/uL (0.0-0.1); BASOPHILS % (AUTO) 1 % (0-10); EOSINOPHILS # (AUTO) 0.3 10^3/uL (0.0-0.3); EOSINOPHILS % (AUTO) 3 % (0-10); HEMATOCRIT 36 % (40-54); HEMOGLOBIN 11.4 g/dL (13.3-17.7); LYMPHOCYTES # (AUTO) 1.7 10^3/uL (1.0-4.0); LYMPHOCYTES % (AUTO) 18 % (12-44); MEAN PLATELET VOLUME 12.1 fL (9.0-12.2); MONOCYTES # (AUTO) 0.5 10^3/uL (0.0-1.0); MONOCYTES % (AUTO) 6 % (0-12); NEUTROPHILS # (AUTO) 6.9 10^3/uL (1.8-7.8); NEUTROPHILS % (AUTO) 72 % (42-75); PLATELET COUNT 106 10^3/uL (130-400); WHITE BLOOD COUNT 9.5 10^3/uL (4.3-11.0)
[2022-01-27 16:17] LABS: ALBUMIN 3.4 GM/DL (3.2-4.5); POTASSIUM 4.5 MMOL/L (3.6-5.0)
[2022-01-27 16:20] LABS: TOTAL PROTEIN 5.8 GM/DL (6.4-8.2)
[2022-01-27 16:21] LABS: BILIRUBIN,TOTAL 0.5 MG/DL (0.1-1.0)
[2022-01-27 16:23] LABS: CREATININE SERUM 1.26 MG/DL (0.60-1.30)
[2022-01-27 19:30] VITALS: BP 129/66
[2022-01-27] MEDS: ASPIRIN E.C. 81 MG (ECOTRIN) TAB PO SCH (20:05)
[2022-01-27] MEDS: LATANOPROST 0.005% (XALATAN) OPHTH SOLN 2.5 ML OU SCH (20:06)
[2022-01-28] MEDS ORDERED: METO50TA15 PO (05:22)
[2022-01-28] MEDS ORDERED: FAMO20TA5 PO (05:22)
--- NOTE | 2022-01-28 05:23 | D/C HH Face to Face Order ---
D/C Face to Face Orders Reconcile Patient Problems Problems Reviewed?: Yes Instructions for Patient Via [facility], Patient Instructions/FollowUp: PCP in 1 week Physician to follow Patient: [facility] Discharge Diet for Home: ADA Diet Patient Problems: Debility s/p Pseudomonas UTI s/p c diff colitis Patient Data-Allergies,Ht & Wt Patient Allergies: Coded Allergies: Penicillins (Verified Allergy, Severe, Anaphylaxis, 01/15/22) promethazine (Verified Allergy, Severe, Anaphylaxis, 01/15/22) ramelteon (Verified Allergy, Unknown, Shortness of Breath, 02/27/20) "Severe bronchospasm" sotalol (Verified Allergy, Unknown, Shortness of Breath, 02/27/20) "Severe bronchospasm" Home Health Need/Face to Face Date of Face to Face: Jan 28, 2022 Clinical Findings: Muscle weakness, Unsteady gait I have seen Pt fayn-qo-atwa: Yes Discharged To: Home Diagnosis/Conditions: Debility s/p Pseudomonas UTI s/p c diff colitis Patient is Homebound due to: Muscle weakness Homebound Status Due to the above stated illness, injury or surgical procedure (medical condition or diagnosis) and associated clinical findings, the patient is homebound because of his/her inability to leave home except with aid of a supportive device and/or person AND leaving the home requires a considerable and taxing effort or is medically contraindicated. Pt req the following assistanc: Walker Home Health Nursing Orders Home Health Services Order: Nursing Services, Food Cashier-Evaluate & Treat, Physical Therapy-Evaluate & Treat Certify Stmt I certify that this patient is under my care and that I, a nurse practitioner or a physician; a assistant professor of criminal justice working with me, had a face to face encounter that -m eets the physician face to face encounter requirements with this patient as dated. EDEN FORDE DO Jan 28, 2022 05:23
--- NOTE | 2022-01-28 05:24 | Discharge Summary ---
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 difficile colitis treatment Maintain cefepime for Pseudomonas UTI 01/18/2022: Vanc PO 01/19/2022: Supportive care 01/20/2022: Monitor closely 01/21/2022: Complete vancomycin treatment Completed cefepime 01/22/2022: Monitor closely 01/23/2022: Monitor for loose stools 01/24/2022: Monitor closely 01/25/2022: DC planned Friday01/26/2022: Monitor closely Fall risk 01/27/2022: Monitor closely (1) C. difficile colitis Status: Acute Discharge Summary Discharge Physical Examination Allergies: Coded Allergies: Penicillins (Verified Allergy, Severe, Anaphylaxis, 01/15/22) promethazine (Verified Allergy, Severe, Anaphylaxis, 01/15/22) ramelteon (Verified Allergy, Unknown, Shortness of Breath, 02/27/20) "Severe bronchospasm" sotalol (Verified Allergy, Unknown, Shortness of Breath, 02/27/20) "Severe bronchospasm" Vitals & I&Os Vital Signs Date Time Temp Pulse Resp B/P (MAP) Pulse Ox O2 Delivery O2 Flow Rate FiO2 01/28/22 12:30 37.0 60 18 115/56 95 Room Air 01/28/22 07:23 0.00 General Appearance: Alert, Oriented X3, Cooperative Respiratory: Clear to Auscultation Cardiovascular: Regular Rate Psych/Mental Status: Mental Status NL Hospital Course Was the Problem List Reviewed?: Yes Standard hospital course: Patient was admitted from fourth floor for debility following Pseudomonas UTI on cefepime and C. difficile colitis on vancomycin p .o. Patient participated in therapy. Cognition was noted to be deficient as his baseline at home per . Labs remained stable. Loose stools resolved and vancomycin was completed. 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 Cefepime was completed. Overall patient was doing very well and regained enough function in order to go home on home health. Labs (last 24 hrs) Laboratory Tests 01/16/22 15:49: Glucometer 117H 01/16/22 20:14: Glucometer 160H 01/17/22 05:05: White Blood Count 9.0, Red Blood Count 3.70L, Hemoglobin 10.6L, Hematocrit 33L, Mean Corpuscular Volume 89, Mean Corpuscular Hemoglobin 29, Mean Corpuscular Hemoglobin Concent 32, Red Cell Distribution Width 14.8H, Platelet Count 107L, Mean Platelet Volume 10.7, Immature Granulocyte % (Auto) 0, Neutrophils (%) (Auto) 72, Lymphocytes (%) (Auto) 17, Monocytes (%) (Auto) 6, Eosinophils (%) (Auto) 4, Basophils (%) (Auto) 1, Neutrophils # (Auto) 6.5, Lymphocytes # (Auto) 1.6, Monocytes # (Auto) 0.5, Eosinophils # (Auto) 0.3, Basophils # (Auto) 0.1, Immature Granulocyte # (Auto) 0.0, Percent Immature Platelet Fraction 4.0, Sodium Level 143, Potassium Level 4.3, Chloride Level 113H, Carbon Dioxide Level 20L, Anion Gap 10, Blood Urea Nitrogen 11, Creatinine 0.90, Estimat Glomerular Filtration Rate 84, BUN/Creatinine Ratio 12, Glucose Level 105, Calcium Level 8.5, Corrected Calcium 9.5, Total Bilirubin 0.6, Aspartate Amino Transf (AST/SGOT) 14, Alanine Aminotransferase (ALT/SGPT) 15, Alkaline Phosphatase 65, Total Protein 4.8L, Albumin 2.8L 01/17/22 11:29: Troponin I 0.042H 01/17/22 15:45: Troponin I 0.045H 01/17/22 20:42: Glucometer 109 01/18/22 05:31: Glucometer 58*L 01/18/22 06:00: Glucometer 75 01/18/22 15:22: Glucometer 96 01/18/22 20:04: Glucometer 113H 01/19/22 05:40: Glucometer 100 01/20/22 05:59: Glucometer 81 01/20/22 07:35: White Blood Count 9.8, Red Blood Count 3.83L, Hemoglobin 10.7L, Hematocrit 34L, Mean Corpuscular Volume 89, Mean Corpuscular Hemoglobin 28, Mean Corpuscular Hemoglobin Concent 31L, Red Cell Distribution Width 15.0H, Platelet Count 113L, Mean Platelet Volume 11.5, Immature Granulocyte % (Auto) 1, Neutrophils (%) (Auto) 70, Lymphocytes (%) (Auto) 20, Monocytes (%) (Auto) 6, Eosinophils (%) (Auto) 3, Basophils (%) (Auto) 1, Neutrophils # (Auto) 6.9, Lymphocytes # (Auto) 1.9, Monocytes # (Auto) 0.6, Eosinophils # (Auto) 0.3, Basophils # (Auto) 0.1, Immature Granulocyte # (Auto) 0.1, Percent Immature Platelet Fraction 5.6, Sodium Level 143, Potassium Level 4.0, Chloride Level 111H, Carbon Dioxide Level 23, Anion Gap 9, Blood Urea Nitrogen 21H, Creatinine 1.01, Estimat Glomerular Filtration Rate 73, BUN/Creatinine Ratio 21, Glucose Level 67L, Calcium Level 8.7, Corrected Calcium 9.5, Total Bilirubin 0.5, Aspartate Amino Transf (AST/SGOT) 16, Alanine Aminotransferase (ALT/SGPT) 13, Alkaline Phosphatase 59, Total Protein 5.1L, Albumin 3.0L 01/20/22 11:17: Glucometer 120H 01/20/22 16:06: Glucometer 127H 01/20/22 20:42: Glucometer 141H 01/21/22 05:35: White Blood Count 10.5, Red Blood Count 3.75L, Hemoglobin 10.7L, Hematocrit 33L, Mean Corpuscular Volume 89, Mean Corpuscular Hemoglobin 29, Mean Corpuscular Hemoglobin Concent 32, Red Cell Distribution Width 15.1H, Platelet Count 110L, Mean Platelet Volume 11.4, Immature Granulocyte % (Auto) 1, Neutrophils (%) (Auto) 69, Lymphocytes (%) (Auto) 21, Monocytes (%) (Auto) 6, Eosinophils (%) (Auto) 3, Basophils (%) (Auto) 1, Neutrophils # (Auto) 7.3, Lymphocytes # (Auto) 2.2, Monocytes # (Auto) 0.7, Eosinophils # (Auto) 0.3, Basophils # (Auto) 0.1, Immature Granulocyte # (Auto) 0.1, Percent Immature Platelet Fraction 5.1, Sodium Level 143, Potassium Level 4.0, Chloride Level 113H, Carbon Dioxide Level 22, Anion Gap 8, Blood Urea Nitrogen 23H, Creatinine 1.09, Estimat Glomerular Filtration Rate 67, BUN/Creatinine Ratio 21, Glucose Level 75, Calcium Level 8.8, Corrected Calcium 9.6, Total Bilirubin 0.5, Aspartate Amino Transf (AST/SGOT) 15, Alanine Aminotransferase (ALT/SGPT) 15, Alkaline Phosphatase 60, Total Protein 5.1L, Albumin 3.0L 01/21/22 05:51: Glucometer 69L 01/21/22 11:10: Glucometer 101 01/22/22 05:46: Glucometer 69L 01/22/22 06:26: Glucometer 103 01/22/22 08:29: Glucometer 149H 01/22/22 11:31: Glucometer 101 01/22/22 16:44: Glucometer 129H 01/22/22 21:33: Glucometer 147H 01/23/22 05:41: Glucometer 106 01/23/22 10:30: Glucometer 127H 01/23/22 17:07: Glucometer 140H 01/23/22 21:24: Glucometer 122H 01/24/22 05:26: Glucometer 97 01/24/22 11:30: Glucometer 139H 01/24/22 16:42: Glucometer 126H 01/24/22 20:33: Glucometer 156H 01/25/22 05:34: Glucometer 100 01/25/22 11:01: Glucometer 152H 01/25/22 17:15: Glucometer 149H 01/25/22 21:00: Glucometer 174H 01/26/22 06:01: Glucometer 111H 01/26/22 11:07: Glucometer 147H 01/26/22 15:58: Glucometer 148H 01/26/22 20:32: Glucometer 202H 01/27/22 05:25: Glucometer 154H 01/27/22 11:00: Glucometer 204H 01/27/22 15:22: Glucometer 195H 01/27/22 16:04: White Blood Count 9.5, Red Blood Count 4.03L, Hemoglobin 11.4L, Hematocrit 36L, Mean Corpuscular Volume 90, Mean Corpuscular Hemoglobin 28, Mean Corpuscular Hemoglobin Concent 31L, Red Cell Distribution Width 15.2H, Platelet Count 106L, Mean Platelet Volume 12.1, Immature Granulocyte % (Auto) 0, Neutrophils (%) (Auto) 72, Lymphocytes (%) (Auto) 18, Monocytes (%) (Auto) 6, Eosinophils (%) (Auto) 3, Basophils (%) (Auto) 1, Neutrophils # (Auto) 6.9, Lymphocytes # (Auto) 1.7, Monocytes # (Auto) 0.5, Eosinophils # (Auto) 0.3, Basophils # (Auto) 0.1, Immature Granulocyte # (Auto) 0.0, Percent Immature Platelet Fraction 6.5, Sodium Level 142, Potassium Level 4.5, Chloride Level 111H, Carbon Dioxide Level 25, Anion Gap 6, Blood Urea Nitrogen 23H, Creatinine 1.26, Estimat Glomerular Filtration Rate 56, BUN/Creatinine Ratio 18, Glucose Level 196H, Calcium Level 9.0, Corrected Calcium 9.5, Total Bilirubin 0.5, Aspartate Amino Transf (AST/SGOT) 15, Alanine Aminotransferase (ALT/SGPT) 15, Alkaline Phosphatase 62, Total Protein 5.8L, Albumin 3.4 01/28/22 05:32: Glucometer 129H Pending Labs Laboratory Tests 01/16/22 15:49: Glucometer 117 01/16/22 20:14: Glucometer 160 01/17/22 05:05: White Blood Count 9.0, Red Blood Count 3.70, Hemoglobin 10.6, Hematocrit 33, Mean Corpuscular Volume 89, Mean Corpuscular Hemoglobin 29, Mean Corpuscular Hemoglobin Concent 32, Red Cell Distribution Width 14.8, Platelet Count 107, Mean Platelet Volume 10.7, Immature Granulocyte % (Auto) 0, Neutrophils (%) (Auto) 72, Lymphocytes (%) (Auto) 17, Monocytes (%) (Auto) 6, Eosinophils (%) (Auto) 4, Basophils (%) (Auto) 1, Neutrophils # (Auto) 6.5, Lymphocytes # (Auto) 1.6, Monocytes # (Auto) 0.5, Eosinophils # (Auto) 0.3, Basophils # (Auto) 0.1, Immature Granulocyte # (Auto) 0.0, Percent Immature Platelet Fraction 4.0, Sodium Level 143, Potassium Level 4.3, Chloride Level 113, Carbon Dioxide Level 20, Anion Gap 10, Blood Urea Nitrogen 11, Creatinine 0.90, Estimat Glomerular Filtration Rate 84, BUN/Creatinine Ratio 12, Glucose Level 105, Calcium Level 8.5, Corrected Calcium 9.5, Total Bilirubin 0.6, Aspartate Amino Transf (AST/SGOT) 14, Alanine Aminotransferase (ALT/SGPT) 15, Alkaline Phosphatase 65, Total Protein 4.8, Albumin 2.8 01/17/22 11:29: Troponin I 0.042 01/17/22 15:45: Troponin I 0.045 01/17/22 20:42: Glucometer 109 01/18/22 05:31: Glucometer 58 01/18/22 06:00: Glucometer 75 01/18/22 15:22: Glucometer 96 01/18/22 20:04: Glucometer 113 01/19/22 05:40: Glucometer 100 01/20/22 05:59: Glucometer 81 01/20/22 07:35: White Blood Count 9.8, Red Blood Count 3.83, Hemoglobin 10.7, Hematocrit 34, Mean Corpuscular Volume 89, Mean Corpuscular Hemoglobin 28, Mean Corpuscular Hemoglobin Concent 31, Red Cell Distribution Width 15.0, Platelet Count 113, Mean Platelet Volume 11.5, Immature Granulocyte % (Auto) 1, Neutrophils (%) (Auto) 70, Lymphocytes (%) (Auto) 20, Monocytes (%) (Auto) 6, Eosinophils (%) (Auto) 3, Basophils (%) (Auto) 1, Neutrophils # (Auto) 6.9, Lymphocytes # (Auto) 1.9, Monocytes # (Auto) 0.6, Eosinophils # (Auto) 0.3, Basophils # (Auto) 0.1, Immature Granulocyte # (Auto) 0.1, Percent Immature Platelet Fraction 5.6, Sodium Level 143, Potassium Level 4.0, Chloride Level 111, Carbon Dioxide Level 23, Anion Gap 9, Blood Urea Nitrogen 21, Creatinine 1.01, Estimat Glomerular Filtration Rate 73, BUN/Creatinine Ratio 21, Glucose Level 67, Calcium Level 8.7, Corrected Calcium 9.5, Total Bilirubin 0.5, Aspartate Amino Transf (AST/SGOT) 16, Alanine Aminotransferase (ALT/SGPT) 13, Alkaline Phosphatase 59, Total Protein 5.1, Albumin 3.0 01/20/22 11:17: Glucometer 120 01/20/22 16:06: Glucometer 127 01/20/22 20:42: Glucometer 141 01/21/22 05:35: White Blood Count 10.5, Red Blood Count 3.75, Hemoglobin 10.7, Hematocrit 33, Mean Corpuscular Volume 89, Mean Corpuscular Hemoglobin 29, Mean Corpuscular Hemoglobin Concent 32, Red Cell Distribution Width 15.1, Platelet Count 110, Mean Platelet Volume 11.4, Immature Granulocyte % (Auto) 1, Neutrophils (%) (Auto) 69, Lymphocytes (%) (Auto) 21, Monocytes (%) (Auto) 6, Eosinophils (%) (Auto) 3, Basophils (%) (Auto) 1, Neutrophils # (Auto) 7.3, Lymphocytes # (Auto) 2.2, Monocytes # (Auto) 0.7, Eosinophils # (Auto) 0.3, Basophils # (Auto) 0.1, Immature Granulocyte # (Auto) 0.1, Percent Immature Platelet Fraction 5.1, [place] um Level 143, Potassium Level 4.0, Chloride Level 113, Carbon Dioxide Level 22, Anion Gap 8, Blood Urea Nitrogen 23, Creatinine 1.09, Estimat Glomerular Filtration Rate 67, BUN/Creatinine Ratio 21, Glucose Level 75, Calcium Level 8.8, Corrected Calcium 9.6, Total Bilirubin 0.5, Aspartate Amino Transf (AST/SGOT) 15, Alanine Aminotransferase (ALT/SGPT) 15, Alkaline Phosphatase 60, Total Protein 5.1, Albumin 3.0 01/21/22 05:51: Glucometer 69 01/21/22 11:10: Glucometer 101 01/22/22 05:46: Glucometer 69 01/22/22 06:26: Glucometer 103 01/22/22 08:29: Glucometer 149 01/22/22 11:31: Glucometer 101 01/22/22 16:44: Glucometer 129 01/22/22 21:33: Glucometer 147 01/23/22 05:41: Glucometer 106 01/23/22 10:30: Glucometer 127 01/23/22 17:07: Glucometer 140 01/23/22 21:24: Glucometer 122 01/24/22 05:26: Glucometer 97 01/24/22 11:30: Glucometer 139 01/24/22 16:42: Glucometer 126 01/24/22 20:33: Glucometer 156 01/25/22 05:34: Glucometer 100 01/25/22 11:01: Glucometer 152 01/25/22 17:15: Glucometer 149 01/25/22 21:00: Glucometer 174 01/26/22 06:01: Glucometer 111 01/26/22 11:07: Glucometer 147 01/26/22 15:58: Glucometer 148 01/26/22 20:32: Glucometer 202 01/27/22 05:25: Glucometer 154 01/27/22 11:00: Glucometer 204 01/27/22 15:22: Glucometer 195 01/27/22 16:04: White Blood Count 9.5, Red Blood Count 4.03, Hemoglobin 11.4, Hematocrit 36, Mean Corpuscular Volume 90, Mean Corpuscular Hemoglobin 28, Mean Corpuscular Hemoglobin Concent 31, Red Cell Distribution Width 15.2, Platelet Count 106, Mean Platelet Volume 12.1, Immature Granulocyte % (Auto) 0, Neutrophils (%) (Auto) 72, Lymphocytes (%) (Auto) 18, Monocytes (%) (Auto) 6, Eosinophils (%) (Auto) 3, Basophils (%) (Auto) 1, Neutrophils # (Auto) 6.9, Lymphocytes # (Auto) 1.7, Monocytes # (Auto) 0.5, Eosinophils # (Auto) 0.3, Basophils # (Auto) 0.1, Immature Granulocyte # (Auto) 0.0, Percent Immature Platelet Fraction 6.5, Sodium Level 142, Potassium Level 4.5, Chloride Level 111, Carbon Dioxide Level 25, Anion Gap 6, Blood Urea Nitrogen 23, Creatinine 1.26, Estimat Glomerular Filtration Rate 56, BUN/Creatinine Ratio 18, Glucose Level 196, Calcium Level 9.0, Corrected Calcium 9.5, Total Bilirubin 0.5, Aspartate Amino Transf (AST/SGOT) 15, Alanine Aminotransferase (ALT/SGPT) 15, Alkaline Phosphatase 62, Total Protein 5.8, Albumin 3.4 01/28/22 05:32: Glucometer 129 Discharge Home Medications: Active Scripts Active Famotidine 20 Mg Tablet 20 Mg PO DAILY Metoprolol Tartrate 50 Mg Tablet 25 Mg PO BID Reported Gvoke Hypopen (Glucagon) 0.5 Mg/0.1 Ml Auto.injct 0.5 Mg SQ UD PRN Potassium Chloride 8 Meq Capsule.er 16 Meq PO DAILY TAKES 2 (8MEQ) TABS Sertraline HCl 50 Mg Tablet 75 Mg PO DAILY TAKES 1 AND 1/2 OF (50MG) TAB Latanoprost 0.005% Eye Drop (Latanoprost/Pf) 0.005 % Drops 1 Drop OU HS Flomax (Tamsulosin HCl) 0.4 Mg Cap 0.4 Mg PO BID Ozempic (Semaglutide) 1 Mg/0.75 Ml (4 Mg/3 Ml) Pen.injctr 0.5 Mg SQ FRIDAY Tresiba Flextouch U-200 (Insulin Degludec) 200 Unit/Ml (3 Ml) Insuln.pen 134 Units SQ DAILY Jardiance (Empagliflozin) 25 Mg Tablet 25 Mg PO DAILY Furosemide 20 Mg Tablet 20 Mg PO DAILY Aspirin EC (Aspirin) 81 Mg Tablet.dr 162 Mg PO HS TAKES 2 (81MG) TABS Ventolin Hfa (Albuterol Sulfate) 18 Gm Hfa.aer.ad 2 Puff INH Q4H PRN Nitroglycerin 0.4 Mg Tab.subl 0.4 Mg SL UD PRN Calcium 600 + Vit D3 400 Tab (Calcium Carbonate/Vitamin D3) 1 Each Tablet 1 Each PO DAILY Atorvastatin Calcium 20 Mg Tablet 20 Mg PO HS Losartan Potassium 25 Mg Tablet 12.5 Mg PO DAILY TAKES 1/2 OF (25MG) TAB Eliquis (Apixaban) 5 Mg Tablet 5 Mg PO BID Trelegy Ellipta 100-62.5-25 (Fluticasone/Umeclidin/Vilanter) 1 Each Blst.w.dev 1 Puff INH HS Instructions to patient/family Please see electronic discharge instructions given to patient. Diagnosis/Problems Diagnosis/Problems (1) C. difficile colitis Status: Acute EDEN FORDE DO Jan 28, 2022 05:24
[2022-01-28] MEDS: TRELEGY ELLIPTA IH SCH (07:23)
[2022-01-28] MEDS: FUROSEMIDE 20 MG (LASIX) TAB PO SCH (07:29)
[2022-01-28] MEDS: CALCIUM CARB + VIT D 600 MG (CALCARB + D) TAB PO SCH (07:30)
[2022-01-28] MEDS: FAMOTIDINE 20 MG (PEPCID) TABLET PO SCH (07:30)
[2022-01-28] MEDS: SERTRALINE 50 MG (ZOLOFT) TABLET PO SCH (07:30)
[2022-01-28] MEDS: APIXABAN 5 MG (ELIQUIS) TABLET PO SCH (07:30)
[2022-01-28] MEDS: EMPAGLIFLOZIN 10 MG TABLET (JARDIANCE) PO SCH (07:30)
[2022-01-28] MEDS: KCL 8 MEQ (MICRO K) TABLET PO SCH (07:31)
[2022-01-28] MEDS: meTOprolol TARTRATE 50 MG (LOPRESSOR) TAB PO SCH (07:32)
[2022-01-28] MEDS: TAMSULOSIN 0.4 MG (FLOMAX) CAP PO SCH (07:32)
[2022-01-28] MEDS: INSULIN DEGLUDEC SQ SCH (07:35)
[2022-01-28 07:40] VITALS: BP 128/61
--- NOTE | 2022-01-28 08:10 | Occupational Ther Daily Note ---
OT Current Status-Daily Note Subjective Pt alert in recliner finishing breakfast. Pt agrees to therapy. No c/o pain at this time. Mental Status/Objective Patient Orientation: Person, Place, Time, Situation Acute change in mental status: 0 Inattention: 0 Disorganized thinkin Altered level of consciousness: 0 ADL-Treatment Pt independent in eating. Pt agrees to shower. Pt ambulates to bathroom using FWW, CGA. Pt transfers to toilet using grabbars, CGA. Pt min A in toilet hygiene after pt attempts to cleanse buttocks and is unable. Pt ambulates with FWW to shower bench. Pt doffs LB and UB clothing independent. Pt completes 100% of shower in sitting by self. Pt independent in oral care sitting at sink. Pt ambu lates to recliner using FWW, CGA. Pt donned UB and LB clothing after set up. Pt set up in footwear using AE. Pt was left sitting in recliner, call light/phone in reach. All needs met in room. Therapy Code Descriptions/Definitions Functional [place] Measure: 0=Not Assessed/NA 4=Minimal Assistance 1=Total Assistance 5=Supervision or Setup 2=Maximal Assistance 6=Modified [place] 3=Moderate Assistance 7=Complete IndependenceSCALE: Activities may be completed with or without assistive devices. 6-Xxknewkpyf-txaxuph completes the activity by him/herself with no assistance from a helper. 5-Set-up or Clean-up Assistance-helper sets up or cleans up; patient completes activity. [place] assists only prior to or following the activity. 4-Supervision or Touching Assistance-helper provides verbal cues and/or touching/steadying and/or contact guard assistance as patient completes activity. Assistance may be provided throughout the activity or intermittently. 3-Partial/Moderate Assistance-helper does LESS THAN HALF the effort. [place] lifts, holds or supports trunk or limbs, but provides less than half the effort. 2-Substantial/Maximal Assistance-helper does MORE THAN HALF the effort. [place] lifts or holds trunk or limbs and provides more than half the effort. 6-Nmetljjyc-zohxtx does ALL the effort. Patient does none of the effort to complete the activity. Or, the assistance of 2 or more helpers is required for the patient to complete the activity. If activity was not attempted, code reason: 7-Patient Refused. 9-Not Applicable-not attempted and the patient did not perform the activity before the current illness, exacerbation or injury. 10-Not Attempted due to Environmental Limitations-(lack of equipment, weather restraints, etc.). 88-Not Attempted due to Medical Conditions or Safety Concerns. Eating (QC): 6 Oral Hygiene (QC): 6 Bathing Location: L Arm, R Arm, L Upper Leg, R Upper Leg, L Lower Leg (including foot), R Lower Leg (including foot), Chest, Abdomen, Buttocks, Perineal Area Shower/Bathe Self (QC): 6 Upper Body Dressing (QC): 5 Lower Body Dressing (QC): 5 On/Off Footwear: 5 Toileting Hygiene (QC): 3 (Min A) Toilet Transfer (QC): 4 (CGA) OT Pediatric Nephrologist Goals Alf Goals Time Frame: Feb 08, 2022 Acute change in mental status: 0 Inattention: 0 Disorganized thinkin Altered level of consciousness: 0 Eating (QC): 6 (met) Oral Hygiene (QC): 4 (SBA with education on importance of oral hygiene, met) Toileting Hygiene (QC): 6 (not met) Shower/Bathe Self (QC): 6 (met) Upper Body Dressing (QC): 5 (met) Lower Body Dressing (QC): 5 (met) On/Off Footwear (QC): 5 (met) Additional Goals: 1-Demonstrate ADL Tasks, 2-Verbalize Understanding, 3- ImproveStrength/Rani 1=Demonstrate adherence to instructed precautions during ADL tasks. 2=Patient will verbalize/demonstrate understanding of assistive devices/modifications for ADL. 3=Patient will improve strength/tolerance for activity to enable patient to perform ADL's. OT Education/Plan Problem List/Assessment Assessment: Decreased Activ Tolerance, Decreased UE Strength, Impaired Coordination, Impaired Self-Care Skills Pt is currently at his PLOF with ADLs, but per physician orders and rehab process, OT will see pt for continued UE strengthening, activity tolerance, and increasing level of independence with ADLs and functional mobility. Discharge Recommendations Plan/Recommendations: Continue POC Equpiment Recommendations-D/C: Hip Kit Treatment Plan/Plan of Care Patient would benefit from OT for education, treatment and training to promote independence in ADL's, mobility, safety and/or upper extremity function for ADL's. Plan of Care: ADL Retraining, Functional Mobility, Group Exercise/Act as Ind, UE Funct Exercise/Act Treatment Duration: Feb 08, 2022 Frequency: At least 5 of 7 days/Wk (IRF) Estimated Hrs Per Day: 1.5 hours per day Agreement: Yes Rehab Potential: Fair Time/GCodes Start Time: 07:30 Stop Time: 08:15 Total Time Billed (hr/min): 45 Billed Treatment Time 1 visit ADL 3 (45 min) MARLEY MCCOY OT Jan 28, 2022 08:10
[2022-01-28] MEDS: MICONAZOLE 2% POWDER (DESENEX AF) 90 GM TOP SCH (09:38)
--- NOTE | 2022-01-28 09:56 | IRF PAI BIMS ---
BIMS BIMS IRF LUCY BIMS: IRF LUCY BIMS Response (Comments) Value Expression of Ideas and Wants (Verbal/Non Verbal) Without Difficulty 3 Understanding Verbal Content Understands 3 Should Brief Interview for Mental Status be Conducted Yes Repitition of Three Words Three (3 points) 3 What year is it right now? Missed by 1m or no answer (0 points) 0 What month is it right now? Accurate within 5 days (2 points) 0 What week is it now? Correct (1 point) 0 Recalls Socks Yes, No Cue Required (2 points) 2 Recalls Blue Yes, After Cueing (Color) (1 point) 1 Recalls Bed Yes, After Cueing (1 point) 1 Total 13 Brief Interview/Mental Status: No Notes: Score: 02/09 MARLEY MCCOY OT Jan 28, 2022 09:56
--- NOTE | 2022-01-28 10:07 | Physical Therapy Daily Note ---
PT Daily Note-Current Subjective Patient in bed pre tx, agrees to PT, has no complaints of pain. Pain Section J - Health Conditions 1. Rarely or not at all 2. Occasionally 3. Frequently 4. Almost constantly 8. Unable to answer Pain Effect on Sleep: 1 Pain Interference with Therapy: 1 Pain Interference w/Day-to-Day: 1 Appearance Patient in bed post tx with nurse call, phone, tray, all needs met, bed alarm on. Mental Status Patient Orientation: Person, Place, Situation Transfers SCALE: Activities may be completed with or without assistive devices. 4-Efubwezriz-dvimmlp completes the activity by him/herself with no assistance from a helper. 5-Set-up or Clean-up Assistance-helper sets up or cleans up; patient completes activity. [place] assists only prior to or following the activity. 4-Supervision or Touching Assistance-helper provides verbal cues and/or touching/steadying and/or contact guard assistance as patient completes a ctivity. Assistance may be provided throughout the activity or intermittently. 3-Partial/Moderate Assistance-helper does LESS THAN HALF the effort. [place] lifts, holds or supports trunk or limbs, but provides less than half the effort. 2-Substantial/Maximal Assistance-helper does MORE THAN HALF the effort. [place] lifts or holds trunk or limbs and provides more than half the effort. 7-Hxhasvtij-ozqaut does ALL the effort. Patient does none of the effort to complete the activity. Or, the assistance of 2 or more helpers is required for the patient to complete the activity. If activity was not attempted, code reason: 7-Patient Refused. 9-Not Applicable-not attempted and the patient did not perform the activity before the current illness, exacerbation or injury. 10-Not Attempted due to Environmental Limitations-(lack of equipment, weather restraints, etc.). 88-Not Attempted due to Medical Conditions or Safety Concerns. Roll Left & Right (QC): 6 Sit to Lying (QC): 6 Lying to Sitting/Side of Bed(Q: 6 Sit to Stand (QC): 4 Chair/Zcc-sx-Mjmob Xfer(QC): 4 Toilet Transfer (QC): 4 Car Transfer (QC): 4 Patient performs rolling and supine <-> sit with independent, sit <-> stand SBA, transfers SBA, car transfer SBA. Occasional cues for hand placement and safety. Weight Bearing Full Weight Bearing Full Weight Bearing Gait Training Distance: 75'x2 Walk 10 feet (QC): 4 Walk 50 ft with 2 Turns(QC): 4 Walk 150 ft (QC): 88 Walking 10ft/uneven surface-QC: 4 Gait Persons Needed: 1 Gait Assistive Device: FWW Patient can ambulate 75' with a rolling walker with CGA (including 50' with at least 2 turns of 90 degrees and 10' over an uneven surface), patient can be unsteady and occasionally needs steadying assist. Wheelchair Training Does the Pt Use a Wheelchair?: No Wheel 50 ft with 2 turns (QC): 9 Wheel 150 ft (QC): 9 Stair Training Stair Training: Handrails/: uses walker #of Steps: 1 1 Step (curb) (QC): 4 4 Steps (QC): 88 12 Steps (QC): 88 Stairs: Pattern: Step to Patient can go up and down 1 step using a rolling walker with CGA. Patient is unsteady and due to BLE weakness is at risk for knee buckling. Balance Picking up an Object (QC): 4 (SBA using a bark peeler.) Neuromuscular Patient scored a 19/28 on the Tinetti Treatments bed mobility and transfers, ambulation, stair training, balance training Assessment Current Status: Fair Progress patient can but unsteady with transfers and ambulation and needs somebody with his due to this, and balance test puts him at a moderate fall risk PT Short Term Goals Short Term Goals Time Frame: Jan 23, 2022 Roll Left & Right: 6 Sit to lyin Lying to sitting on side of be: 5 Sit to stand: 4 Chair/sto-iq-klfva transfer: 4 Walk 10 feet: 4 PT Consular Officer Goals Usp Goals PT Usp Goals Time Frame: Feb 06, 2022 Roll Left & Right (QC): 6 Sit to Lying (QC): 6 Lying-Sitting on Side/Bed(QC): 6 Sit to Stand (QC): 5 Chair/Lih-yy-Bpiov Xfer(QC): 5 Toilet Transfer (QC): 5 Car Transfer (QC): 5 Does the Patient Walk: Yes Walk 10 feet (QC): 5 Walk 50ft with 2 Turns (QC): 5 Walk 150 ft (QC): 88 Walking 10ft on Uneven Surface: 5 1 Step (curb) (QC): 3 4 Steps (QC): 88 12 Steps (QC): 88 Picking up an Object (QC): 5 Wheel 50 feet with 2 turns (QC: 6 Wheel 150 feet: 6 PT Plan Problem List Problem List: Activity Tolerance, Functional Strength, Safety, Balance, Gait, Transfer, Bed Mobility, ROM Treatment/Plan Treatment Plan: Continue Plan of Care Treatment Plan: Bed Mobility, Education, Functional Activity Rani, Functional Strength, Group Therapy, Gait, Safety, Therapeutic Exercise, Transfers Treatment Duration: Feb 06, 2022 Frequency: At least 5 of 7 days/Wk (IRF) Estimated Hrs Per Day: 1.5 hours per day Patient and/or Family Agrees t: Yes Safety Risks/Education Patient Education: Gait Training, Transfer Techniques, Steps, Correct Positioning, Safety Issues Teaching Recipient: Patient Teaching Methods: Demonstration, Discussion Response to Teaching: Reinforcement Needed Time/GCodes Time In: 0930 Time Out: 1000 Total Billed Treatment Time: 30 Total Billed Treatment 1 visit FA 30' KILLIAN VAUGHN PT Jan 28, 2022 10:07
--- NOTE | 2022-01-28 10:40 | Therapy Team Discharge Summary ---
Therapy Discharge Summary Discharge Recommendations Date of Discharge Physical Therapy Roll Left to Right (QC): 6 Sit to Lying (QC): 6 Lying to Sitting/Side of Bed(Q: 6 Sit to Stand (QC): 4 Chair/Vtz-mg-Hpdup Xfer(QC): 4 Toilet Transfer (QC): 4 Car Transfer (QC): 4 Does the Patient Walk: No and Walking Goal IS indicated Mode of Locomotion: Walk Anticipated Mode of Locomotion: Walk Walk 10 feet (QC): 4 Walk 50 ft with 2 Turns(QC): 4 Walk 150 ft (QC): 88 Walking 10ft on uneven surface: 4 Distance: 30', 20'x2 Gait Assistive Device: FWW Does the Pt Use a Wheelchair: No Wheelchair Distance: 120'x2 Wheel 50 ft with 2 turns (QC): 9 Wheel 150 ft (QC): 9 Type of Wheelchair: Manual #of Steps: 1 1 Step (curb) (QC): 4 4 Steps (QC): 88 12 Steps (QC): 88 Balance Sitting Static: Normal Balance Sitting Dynamic: Normal Balance-Standing Static: Fair Picking up an Object (QC): 4 (SBA using a service department manager.) Occupational Therapy Pt admitted to ARU with debility/weakness. At PLOF, pt required assistance with almost all ADLs at [facility]. Upon initial evaluation, pt was independent with angela chambers, required SBA with showering, set up UE dressing, CGA LE dressing, max A with footwear, and CGA toileting. OT tx focused on increasing BUE strength and activity tolerance, and increasing safety and independence with ADLs and functional mobility in order to decrease caregiver burden. Pt made good progress towards goals, attaining all LTGs except toileting. Pt to discharge home with spouse, OT recommends hip kit. D/C from OT. Decreased Activ Tolerance, Decreased UE Strength, Impaired Coordination, Impaired Self-Care Skills Eating (QC): 6 Oral Hygiene (QC): 6 Shower/Bathe Self (QC): 6 Upper Body Dressing (QC): 5 Lower Body Dressing (QC): 5 On/Off Footwear (QC): 5 Toileting Hygiene (QC): 3 (Min A) PT Wellness Program Coordinator Goals Wellness Program Coordinator Goals PT Wellness Program Coordinator Goals Time Frame: Feb 06, 2022 PT OT Pain Eval : Comment: with knee exercises Scoring Section J - Health Conditions 1. Rarely or not at all 2. Occasionally 3. Frequently 4. Almost constantly 8. Unable to answer Roll Left to Right (QC): 6 Sit to Lying (QC): 6 Lying-Sitting on Side/Bed(QC): 6 Sit to Stand (QC): 5 Chair/Goi-om-Ofgbn Xfer(QC): 5 Car Transfer (QC): 5 Does the Patient Walk: Yes Walk 10 feet (QC): 5 Walk 10ft-Uneven Surface(QC): 5 Walk 50ft with 2 Turns (QC): 5 Walk 150 ft (QC): 88 Wheel 50 feet with 2 turns (QC: 6 # of Steps: 1 1 Step (curb) (QC): 3 4 Steps (QC): 88 12 Steps (QC): 88 Picking up an Object (QC): 5 OT Wellness Program Coordinator Goals Wellness Program Coordinator Goals Time Frame: Feb 08, 2022 Acute change in mental status: 0 Inattention: 0 Disorganized thinkin Altered level of consciousness: 0 Eating (QC): 6 (met) Oral Hygiene (QC): 4 (SBA with education on importance of oral hygiene, met) Toileting Hygiene (QC): 6 (not met) Shower/Bathe Self (QC): 6 (met) Upper Body Dressing (QC): 5 (met) Lower Body Dressing (QC): 5 (met) On/Off Footwear (QC): 5 (met) Additional Goals: 1-Demonstrate ADL Tasks, 2-Verbalize Understanding, 3- ImproveStrength/Rani 1=Demonstrate adherence to instructed precautions during ADL tasks. 2=Patient will verbalize/demonstrate understanding of assistive devices/modifications for ADL. 3=Patient will improve strength/tolerance for activity to enable patient to perform ADL's. MARLEY MCCOY OT Jan 28, 2022 10:40
[2022-01-28 12:30] VITALS: BP 115/56
--- NOTE | 2022-01-28 14:24 | Therapy Team Discharge Summary ---
Therapy Discharge Summary Discharge Recommendations Date of Discharge Physical Therapy Patient came to rehab with debility/weakness. Upon evaluation patient performs rolling with independence, supine <-> sit SBA, sit <-> stand min assist, transfers and car transfer CGA, ambulate 30' with a rolling walker with CGA (but needs min assist to ambulate 10' over an uneven surface), propelled a manual WC 120' with SBA, and picked up an object from the floor with CGA using a sap crm developer. Patient has been performing bed mobility and transfer training, balance and endurance training, functional strengthening, stair training, gait training, and education. Patient has made some progress but has only met his group home goals for rolling and supine <-> sit and stairs. Now, patient performs rolling and supine <-> sit with independent, sit <-> stand SBA, transfers SBA, car transfer SBA, ambulate 75' with a rolling walker with CGA (including 50' with at least 2 turns of 90 degrees and 10' over an uneven surface), can go up and down 1 step using a rolling walker with CGA, and can slate picker an object from the floor using a sap crm developer with SBA. Patient is being discharged from this facility today and will be discharged from PT at this time. Roll Left to Right (QC): 6 Sit to Lying (QC): 6 Lying to Sitting/Side of Bed(Q: 6 Sit to Stand (QC): 4 Chair/Hel-ur-Lzjlk Xfer(QC): 4 Toilet Transfer (QC): 4 Car Transfer (QC): 4 Does the Patient Walk: No and Walking Goal IS indicated Mode of Locomotion: Walk Anticipated Mode of Locomotion: Walk Walk 10 feet (QC): 4 Walk 50 ft with 2 Turns(QC): 4 Walk 150 ft (QC): 88 Walking 10ft on uneven surface: 4 Distance: 30', 20'x2 Gait Assistive Device: FWW Does the Pt Use a Wheelchair: No Wheelchair Distance: 120'x2 Wheel 50 ft with 2 turns (QC): 9 Wheel 150 ft (QC): 9 Type of Wheelchair: Manual #of Steps: 1 1 Step (curb) (QC): 4 4 Steps (QC): 88 12 Steps (QC): 88 Balance Sitting Static: Normal Balance Sitting Dynamic: Normal Balance-Standing Static: Fair Picking up an Object (QC): 4 (SBA using a sap crm developer.) Occupational Therapy Decreased Activ Tolerance, Decreased UE Strength, Impaired Coordination, Impaired Self-Care Skills Eating (QC): 6 Oral Hygiene (QC): 6 Shower/Bathe Self (QC): 6 Upper Body Dressing (QC): 5 Lower Body Dressing (QC): 5 On/Off Footwear (QC): 5 Toileting Hygiene (QC): 3 (Min A) PT Half-Way Goals Half-Way Goals PT Supervisor Dehydrogenation Goals Time Frame: Feb 06, 2022 PT OT Pain Eval : Comment: with knee exercises Scoring Section J - Health Conditions 1. Rarely or not at all 2. Occasionally 3. Frequently 4. Almost constantly 8. Unable to answer Roll Left to Right (QC): 6 Sit to Lying (QC): 6 Lying-Sitting on Side/Bed(QC): 6 Sit to Stand (QC): 5 Chair/Elf-nb-Pdgdl Xfer(QC): 5 Car Transfer (QC): 5 Does the Patient Walk: Yes Walk 10 feet (QC): 5 Walk 10ft-Uneven Surface(QC): 5 Walk 50ft with 2 Turns (QC): 5 Walk 150 ft (QC): 88 Wheel 50 feet with 2 turns (QC: 6 # of Steps: 1 1 Step (curb) (QC): 3 4 Steps (QC): 88 12 Steps (QC): 88 Picking up an Object (QC): 5 OT Supervisor Dehydrogenation Goals Supervisor Dehydrogenation Goals Time Frame: Feb 08, 2022 Acute change in mental status: 0 Inattention: 0 Disorganized thinkin Altered level of consciousness: 0 Eating (QC): 6 (met) Oral Hygiene (QC): 4 (SBA with education on importance of oral hygiene, met) Toileting Hygiene (QC): 6 (not met) Shower/Bathe Self (QC): 6 (met) Upper Body Dressing (QC): 5 (met) Lower Body Dressing (QC): 5 (met) On/Off Footwear (QC): 5 (met) Additional Goals: 1-Demonstrate ADL Tasks, 2-Verbalize Understanding, 3- ImproveStrength/Rani 1=Demonstrate adherence to instructed precautions during ADL tasks. 2=Patient will verbalize/demonstrate understanding of assistive devices/modifications for ADL. 3=Patient will improve strength/tolerance for activity to enable patient to perform ADL's. KILLIAN VAUGHN PT Jan 28, 2022 14:24
== END 2022-01-28 12:30 | disposition home health service (06) | DRG 372 ==
PROVIDERS: ADMIT Internal Medicine; ATTEND Internal Medicine
DX: A04.72 Enterocolitis due to Clostridium difficile, not specified as recurrent (principal); E66.2 Morbid (severe) obesity with alveolar hypoventilation; N39.0 Urinary tract infection, site not specified; R53.81 Other malaise; R53.1 Weakness; I25.10 Atherosclerotic heart disease of native coronary artery without angina pectoris; I48.91 Unspecified atrial fibrillation; I10 Essential (primary) hypertension; E88.81 Metabolic syndrome and other insulin resistance; R33.8 Other retention of urine; F09 Unspecified mental disorder due to known physiological condition; E11.40 Type 2 diabetes mellitus with diabetic neuropathy, unspecified; H35.30 Unspecified macular degeneration; E78.00 Pure hypercholesterolemia, unspecified; H40.9 Unspecified glaucoma; H91.90 Unspecified hearing loss, unspecified ear; N40.1 Benign prostatic hyperplasia with lower urinary tract symptoms; I25.2 Old myocardial infarction; J44.9 Chronic obstructive pulmonary disease, unspecified; R26.89 Other abnormalities of gait and mobility; E88.09 Other disorders of plasma-protein metabolism, not elsewhere classified; I65.23 Occlusion and stenosis of bilateral carotid arteries; B96.5 Pseudomonas (aeruginosa) (mallei) (pseudomallei) as the cause of diseases classified elsewhere; Z79.4 Long term (current) use of insulin; Z79.84 Long term (current) use of oral hypoglycemic drugs; Z79.85 Long-term (current) use of injectable non-insulin antidiabetic drugs; Z87.891 Personal history of nicotine dependence; Z95.5 Presence of coronary angioplasty implant and graft; Z95.0 Presence of cardiac pacemaker; Z79.01 Long term (current) use of anticoagulants; Z95.2 Presence of prosthetic heart valve; Z88.0 Allergy status to penicillin; Z88.8 Allergy status to other drugs, medicaments and biological substances; Z79.82 Long term (current) use of aspirin; Z68.33 Body mass index [BMI] 33.0-33.9, adult
CPT/HCPCS: 36415; 80053; 82947; 84484; 85025; 93005; 94640; 94760

== ENCOUNTER 2022-03-19 05:10 | Inpatient (IN) | payer MEDICARE, MEDICAID ==
[~2022-03-19] VITALS: Ht 185.4 cm; Wt 110.0 kg
[~2022-03-19 05:10] MED LIST changes: +ALBU8.5H6 IH; +FAMO20TA5 PO; -RT-ALBUINH IH
[2022-03-19] MEDS ORDERED: DEXTROSE 50% 50 ML (IMS) SYR IV ONE (05:30)
[2022-03-19] MEDS ORDERED: LIDOCAINE UROJET 2% GEL 10 ML PKG TOP ONE (05:30)
[2022-03-19] MEDS ORDERED: LACTATED RINGERS 1,000 ML IV ONE (05:30)
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
[2022-03-19 05:41] LABS: MEAN CORPUSCULAR VOLUME 87 fL (80-99); MEAN PLATELET VOLUME 11.8 fL (9.0-12.2)
[2022-03-19 05:44] LABS: BASOPHILS # (AUTO) 0.1 10^3/uL (0.0-0.1); BASOPHILS % (AUTO) 1 % (0-10); EOSINOPHILS # (AUTO) 0.2 10^3/uL (0.0-0.3); EOSINOPHILS % (AUTO) 2 % (0-10); HEMATOCRIT 40 % (40-54); HEMOGLOBIN 12.8 g/dL (13.3-17.7); LYMPHOCYTES # (AUTO) 2.2 10^3/uL (1.0-4.0); LYMPHOCYTES % (AUTO) 19 % (12-44); MEAN CORPUSCULAR HEMOGLOBIN 28 pg (25-34); MEAN CORPUSCULAR HGB CONC 32 g/dL (32-36); MONOCYTES # (AUTO) 0.7 10^3/uL (0.0-1.0); MONOCYTES % (AUTO) 6 % (0-12); NEUTROPHILS # (AUTO) 8.2 10^3/uL (1.8-7.8); NEUTROPHILS % (AUTO) 72 % (42-75); PLATELET COUNT 99 10^3/uL (130-400); WHITE BLOOD COUNT 11.4 10^3/uL (4.3-11.0)
[2022-03-19 05:45] LABS: ALBUMIN 3.3 GM/DL (3.2-4.5); POTASSIUM 3.6 MMOL/L (3.6-5.0)
[2022-03-19 05:46] LABS: CALCIUM 9.1 MG/DL (8.5-10.1)
[2022-03-19 05:48] LABS: TOTAL PROTEIN 5.9 GM/DL (6.4-8.2)
[2022-03-19 05:49] LABS: BILIRUBIN,TOTAL 0.4 MG/DL (0.1-1.0)
[2022-03-19 05:52] LABS: CREATININE SERUM 1.18 MG/DL (0.60-1.30)
[2022-03-19 05:54] LABS: MAGNESIUM 2.1 MG/DL (1.6-2.4)
[2022-03-19 05:56] LABS: BILIRUBIN,URINE NEGATIVE (NEGATIVE); CLARITY,URINE SL CLOUDY; COLOR,URINE YELLOW; GLUCOSE, URINE (UA) 3+ (NEGATIVE); KETONES,URINE NEGATIVE (NEGATIVE); LEUKOCYTE ESTERASE ,URINE 1+ (NEGATIVE); NITRITE,URINE NEGATIVE (NEGATIVE); PH,URINE 5.5 (5-9); PROTEIN,URINE NEGATIVE (NEGATIVE)
[2022-03-19 06:04] LABS: INR 1.5 (0.8-1.4); PROTHROMBIN TIME PATIENT 18.6 SEC (12.2-14.7)
[2022-03-19 06:12] LABS: ERYTHROCYTE SEDIMENTATION RATE 10 MM/HR (0-30)
[2022-03-19 06:13] LABS: BACTERIA,URINE MODERATE /HPF; CALCIUM OXALATE CRYSTALS,UR FEW /LPF; RBC,URINE RARE /HPF; SQUAMOUS EPITHELIAL CELL,UR 0-2 /HPF
--- NOTE | 2022-03-19 06:58 | Diagnostic Imaging Report ---
EXAMINATION: Chest 1 view HISTORY: Weakness. COMPARISON: 01/14/2022. FINDINGS: Lung volumes are low. Bibasilar opacities are present. Small left pleural effusion is seen. No pneumothorax. Stable prominent cardiac silhouette. Right pectoral pacemaker is stable. IMPRESSION: 1. Low lung volumes with bibasilar opacities favored to represent atelectasis or edema. 2. Small bilateral pleural effusions. 3. Stable cardiomegaly. Dictated by: Dictated on workstation # [id number]
[2022-03-19 08:00] VITALS: BP 127/61
[2022-03-19] MEDS ORDERED: ACETAMINOPHEN 500 MG TAB (TYLENOL) PO PRN (08:15)
[2022-03-19] MEDS ORDERED: ONDANSETRON 4 MG/2 ML (SDV) Z0FRAN IV PRN (08:15)
[2022-03-19 08:51] VITALS: BP 127/61
[2022-03-19] MEDS: NS IV 1000 ML 1,000 ML IV SCH ×3 (08:57→18:14)
[2022-03-19] MEDS: SERTRALINE 50 MG (ZOLOFT) TABLET PO SCH (08:58)
[2022-03-19] MEDS: VANCOMYCIN 125 MG CAPSULE PO SCH ×4 (08:58→23:05)
[2022-03-19] MEDS: LOSARTAN 25 MG (COZAAR) TAB PO SCH (08:58)
[2022-03-19] MEDS: APIXABAN 5 MG (ELIQUIS) TABLET PO SCH ×2 (08:58→23:05)
[2022-03-19] MEDS: ASPIRIN 81 MG CHEW (CHILDREN'S ASA) PO SCH (08:59)
[2022-03-19] MEDS ORDERED: RT-ALBUTEROL/IPRATROPIUM 3 ML (DUONEB) VIAL INH PRN (09:00)
[2022-03-19] MEDS: RT-ALBUTEROL/IPRATROPIUM 3 ML (DUONEB) VIAL INH SCH ×3 (09:27→20:35)
[2022-03-19] MEDS ORDERED: METO50TA15 PO (10:34)
[2022-03-19] MEDS ORDERED: INSU100I55 SQ (10:34)
[2022-03-19 12:00] VITALS: BP 146/65
[2022-03-19] MEDS ORDERED: PATIENT MAY USE OWN MEDS, ALL MC SCH (14:00)
--- NOTE | 2022-03-19 14:33 | Physical Therapy Progress Note ---
Therapy Progress Note Order for PT peggy received, however we will try in the morning. Patient is currently having pretty much continuous BM's. states he has had 4 BM's in the last 10 minutes. Will hold for now. KILLIAN VAUGHN PT Mar 19, 2022 14:33
[2022-03-19 15:35] VITALS: BP 137/65
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
[2022-03-19] MEDS: TAMSULOSIN 0.4 MG (FLOMAX) CAP PO SCH (18:14)
[2022-03-19 20:12] VITALS: BP 105/55
[2022-03-19] MEDS: LATANOPROST 0.005% (XALATAN) OPHTH SOLN 2.5 ML OU SCH (23:01)
[2022-03-19] MEDS: [UNRECOGNIZED DRUG - REMARK] IH SCH (23:06)
[2022-03-19 23:42] VITALS: BP 106/54
[2022-03-20] MEDS: NS IV 1000 ML 1,000 ML IV SCH ×3 (02:08→17:44)
[2022-03-20] MEDS: RT-ALBUTEROL/IPRATROPIUM 3 ML (DUONEB) VIAL INH SCH ×4 (02:42→20:58)
[2022-03-20 03:38] VITALS: BP 126/57
[2022-03-20 06:59] LABS: POTASSIUM 3.8 MMOL/L (3.6-5.0)
[2022-03-20 07:00] LABS: CALCIUM 8.2 MG/DL (8.5-10.1)
[2022-03-20] MEDS: VANCOMYCIN 125 MG CAPSULE PO SCH ×3 (07:00→17:44)
[2022-03-20 07:04] LABS: CREATININE SERUM 0.97 MG/DL (0.60-1.30)
[2022-03-20 07:44] VITALS: BP 128/65
--- NOTE | 2022-03-20 09:02 | Physical Therapy Evaluation ---
PT Evaluation-General Medical Diagnosis Admission Date Mar 19, 2022 at 06:28 Medical Diagnosis: Abdominal/GI Problems Onset Date: Mar 19, 2022 Therapy Diagnosis Therapy Diagnosis: Impaired Mobility Precautions Precautions/Isolations: Fall Prevention, Contact/Enteric Isolation Weight Bear Status Right Lower Extremity: Right Full Weight Bearing Left Lower Extremity: Left Full Weight Bearing Referral Physician: Emma Reason for Referral: Evaluation/Treatment Medical History Pertinent Medical History: Atrial Fib, CAD, COPD, DM, HTN, Neuropathy Additional Medical History Surgery/Hospitalization HX: SEE ER REPORT Surgeries: Yes (Bilat "lens" implants, Laminectomy, Ablation, Cardiac stent, ) Appendectomy, Cardiac, Coronary Stent, Eye Surgery, Gallbladder, Orthopedic, Pacemaker, Valve Replacement Respiratory: Yes (Exertional SOA; PULMONARY FIBROSIS; SILICOSIS) Asthma, Sleep Apnea, COPD Currently Using CPAP: Yes Currently Using BIPAP: No Cardiac: Yes (SVT; AFIB & FLUTTER;STEMI 04/13/15;ABLATION; PACEMAKER; TAVR;STENTS) Atrial Fibrillation, Coronary Artery Disease, Heart Attack, High Cholesterol, Hypertension, Irregular Heartbeat, Valvular Heart Disease Neurological: Yes (BALANCE PROBLEMS; FOOT DROP) Neuropathy Genitourinary: No Gastrointestinal: Yes (S/P CHOLECYSTECTOMY) C-Diff Musculoskeletal: Yes (RIGHT FOOT DROP; MULTIPLE ORTHO SURGERIES; USES WALKER) Degenerate Disk Disease, Arthritis, Foot Drop, Chronic Back Pain Endocrine: Yes (OBESITY) Diabetes, Insulin dep HEENT: Yes (BILATERAL CATARACT SURGERY) Cataract, Macular Degeneration, Glaucoma Hearing Impairment: Hard of Hearing Cancer: No Psychosocial: No Integumentary: No (MARYJO MILLER DO) Surgeries: Yes Gallbladder Reviewed History: Yes Social History Home: Single Level Current Living Status: Spouse Entry Into Home: Ramp Prior Prior Level of Function SCALE: Activities may be completed with or without assistive devices. 1-Qrrsqvadfl-lfzrcvw completes the activity by him/herself with no assistance from a helper. 5-Set-up or Clean-up Assistance-helper sets up or cleans up; patient completes activity. [place] assists only prior to or following the activity. 4-Supervision or Touching Assistance-helper provides verbal cues and/or touching/steadying and/or contact guard assistance as patient completes activity. Assistance may be provided throughout the activity or intermittently. 3-Partial/Moderate Assistance-helper does LESS THAN HALF the effort. [place] lifts, holds or supports trunk or limbs, but provides less than half the effort. 2-Substantial/Maximal Assistance-helper does MORE THAN HALF the effort. [place] lifts or holds trunk or limbs and provides more than half the effort. 3-Qbyebtjjb-uiroha does ALL the effort. Patient does none of the effort to complete the activity. Or, the assistance of 2 or more helpers is required for the patient to complete the activity. If activity was not attempted, code reason: 7-Patient Refused. 9-Not Applicable-not attempted and the patient did not perform the activity before the current illness, exacerbation or injury. 10-Not Attempted due to Environmental Limitations-(lack of equipment, weather restraints, etc.). 88-Not Attempted due to Medical Conditions or Safety Concerns. Bed Mobility: 3 Transfers (B,C,W/C): 3 Gait: 3 Indoor Mobility (Ambulation): Needed Some Help Prior Devices Use: Motorized wheelchair, Walker PT Evaluation-Current Subjective Patient in bed pre-tx, reports no pain currently, agrees to PT. Pt/Family Goals Return home Objective Patient Orientation: Person, Place, Situation Attachments: Yanes Catheter, IV ROM/Strength ROM Lower Extremities BLE grossly WFL Strength Lower Extremities BLE (hip flexion 3+, knee extension 5/5, knee flexion 4/5, DF 4/5) Sensory Vision: Functional Hearing: Functional Sensation Right Lower Extremit: Intact Sensation Left Lower Extremity: Intact Transfers Roll Left to Right (QC): 3 (Min A) Sit to Lying (QC): 4 (SBA) Lying to Sitting/Side of Bed(Q: 3 (Min A) Sit to Stand (QC): 3 (Min A) Gait Does the Patient Walk?: Yes Mode of Locomotion: Both Anticipated Mode of Locomotion: Both Walk 10 feet (QC): 4 Distance: 10'x2 Gait Assistive Device: FWW Comments/Gait Description CGA with ambulation, patient walks with slow gait speed, decreased foot clearance, decreased step length. Balance Sitting Static: Poor (patient needed arm support to sit upright) Sitting Dynamic: Poor (patient needed arm support to sit upright) Standing Static: Fair Standing Dynamic: Fair Treatment Ambulation, LE Strengthening (AP x10, Heel Slides x10, LAQ x10) Assessment/Needs Patient needs Min A with most bed mobility and transfers, CGA for ambulation. Patient has generalized weakness in BLE, very unsteady sitting or standing. Patient in bed post tx with nurse call, phone, tray, all needs met. 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 Longterm Goals PT Longterm Goals Time Frame: Mar 27, 2022 Roll Left & Right (QC): 4 (SBA) Sit to Lying (QC): 6 Lying-Sitting on Side/Bed(QC): 4 (SBA) Sit to Stand (QC): 4 (SBA) Chair/Fzr-cr-Mjzah Xfer(QC): 4 (SBA) Toilet Transfer (QC): 4 (SBA) Walk 10 feet (QC): 4 (SBA) Walk 50ft with 2 Turns (QC): 4 (CGA) PT Plan Problem List Problem List: Activity Tolerance, Functional Strength, Safety, Balance, Gait, Transfer, Bed Mobility, ROM Treatment/Plan Treatment Plan: Continue Plan of Care Treatment Plan: Bed Mobility, Education, Functional Activity Rani, Functional Strength, Gait, Safety, Therapeutic Exercise, Transfers Treatment Duration: Mar 27, 2022 Frequency: 6 times per week Estimated Hrs Per Day: .25 hour per day Patient and/or Family Agrees t: Yes Safety Risks/Education Patient Education: Gait Training, Transfer Techniques, Correct Positioning, Safety Issues Teaching Recipient: Patient Teaching Methods: Demonstration, Discussion Response to Teaching: Reinforcement Needed Discharge Recommendations Plan Patient will perform bed mobility and transfer training, endurance and balance training, functional strengthening in order to be more independent at home. Therapy Discharge Recommendati: Home & Family Time Time In: 814 Time Out: 830 DATE: Mar 20, 2022 Total Billed Treatment Time: 16 Total Billed Treatment 1 visit KILLIAN EVANS PT Mar 20, 2022 09:02
[2022-03-20] MEDS: SERTRALINE 50 MG (ZOLOFT) TABLET PO SCH (09:07)
[2022-03-20] MEDS: APIXABAN 5 MG (ELIQUIS) TABLET PO SCH ×2 (09:08→21:39)
[2022-03-20] MEDS: LOSARTAN 25 MG (COZAAR) TAB PO SCH (09:08)
[2022-03-20] MEDS: [UNRECOGNIZED DRUG - REMARK] SQ SCH (09:08)
[2022-03-20] MEDS: ASPIRIN 81 MG CHEW (CHILDREN'S ASA) PO SCH (09:08)
--- NOTE | 2022-03-20 11:14 | Consultation-Cardiology ---
HPI-Cardiology Cardiology Consultation: Date of Consultation 03/20/22 Time Seen by a Provider: 10:15 Date of Admission 03-19-22 Attending Physician Donato Paz DO Admitting Physician Admitting Physician: Marielena Carter MD Attending Physician: Marielena Carter MD Consulting Physician Guillermo Sparrow MD HPI: Chief Complaint: Arrhythmia Mr. Carter is an 86 yr old male admitted to [facility] from the ED with c/o diarrhea and increasing weakness. He reports he had c-diff a few months ago. He developed diarrhea yesterday and came to the ED. He denies any c/o CP, SOB, palpitations, syncope or near syncope. No c/o LE swelling. Review of Systems-Cardiology Review of Systems Constitutional: No chills, No fever; malaise Eyes: No vision change Ears/Nose/Throat: No epistaxis, No recent hearing loss Respiratory: As described under HPI Cardiovascular: As described under HPI Gastrointestinal: As described under HPI Genitourinary: No dysuria, No hematuria Musculoskeletal: no symptoms reported Skin: No rash on exposed areas, No ulcerations on exposed areas Psychiatric/Neurological: No anxiety, No depression, No seizure, No focal weakness, No syncope Hematologic: No bleeding abnormalities All Other Systems Reviewed Negative Unless Noted: Yes EBI-Noakzh-Oiufjd Hx Patient Social History Living Status: Lives at home with 2nd Hand Smoke Exposure: No Have you traveled recently?: No Alcohol Use?: No Pt feels they are or have been: No Immunizations Up To Date Tetanus Booster (TDap): Unknown Date of Pneumonia Vaccine: Feb 11, 2017 Date of Influenza Vaccine: Jan 16, 2020 Past Medical History PMH As described under Assessment. Family Medical History Family Medical History: H/O CAD in his father, brother and a son Allergies and Home Medications Allergies Coded Allergies: Penicillins (Verified Allergy, Severe, Anaphylaxis, 01/15/22) promethazine (Verified Allergy, Severe, Anaphylaxis, 01/15/22) ramelteon (Verified Allergy, Unknown, Shortness of Breath, 02/27/20) "Severe bronchospasm" sotalol (Verified Allergy, Unknown, Shortness of Breath, 02/27/20) "Severe bronchospasm" Patient Home Medication List Albuterol Sulfate (Ventolin Hfa) 18 Gm Hfa.aer.ad, 2 PUFF INH Q4H PRN for SHORTNESS OF BREATH, (Reported) Entered as Reported by: DONATO MORRISON on 04/20/20 1038 Last Action: Reviewed Apixaban (Eliquis) 5 Mg Tablet, 5 MG PO BID, (Reported) Entered as Reported by: CLARISA SOARES on 04/20/2016 Last Action: Reviewed Aspirin (Aspirin EC) 81 Mg Tablet.dr, 162 MG PO HS, (Reported) Entered as Reported by: DONATO MORRISON on 04/20/20 1049 Last Action: Reviewed Atorvastatin Calcium (Atorvastatin Calcium) 20 Mg Tablet, 20 MG PO HS, (Reported) Entered as Reported by: CLARISA SOARES on 04/20/20615 Last Action: Reviewed Calcium Carbonate/Vitamin D3 (Calcium 600 + Vit D3 400 Tab) 1 Each Tablet, 1 EACH PO DAILY, (Reported) Entered as Reported by: CLARISA SOARES on 04/20/20615 Last Action: Reviewed Empagliflozin (Jardiance) 25 Mg Tablet, 25 MG PO DAILY, (Reported) Entered as Reported by: ABHINAV CAZARES on 12/10/21 1255 Last Action: Reviewed Famotidine (Famotidine) 20 Mg Tablet, 20 MG PO DAILY Prescribed by: EDEN FORDE on 01/28/22 0522 Last Action: Reviewed Fluticasone/Umeclidin/Vilanter (Trelegy Ellipta 100-62.5-25) 1 Each Blst.w.dev, 1 PUFF INH HS, (Reported) Entered as Reported by: CLARISA SOARES on 04/20/20615 Last Action: Converted Furosemide (Furosemide) 20 Mg Tablet, 20 MG PO DAILY, (Reported) Entered as Reported by: EMELYN CABRERA on 09/12/20 0742 Last Action: Reviewed Glucagon (Gvoke Hypopen) 0.5 Mg/0.1 Ml Auto.injct, 0.5 MG SQ UD PRN for HYPOGLYCEMIA, (Reported) Entered as Reported by: CALVIN RING on 01/14/22 1338 Last Action: Reviewed Insulin Aspart (Insulin Aspart Flexpen) 100 Unit/Ml (3 Ml) Insuln.pen, UNIT SQ AC PRN for HYPERGLYCEMIA, (Reported) Entered as Reported by: DONATO MORRISON on 03/19/22 1034 Last Action: Reviewed Insulin Degludec (Tresiba Flextouch U-200) 200 Unit/Ml (3 Ml) Insuln.pen, 134 UNITS SQ DAILY, (Reported) Entered as Reported by: ABHINAV CAZARES on 12/10/211254 Last Action: Converted Latanoprost/Pf (Latanoprost 0.005% Eye Drop) 0.005 % Drops, 1 DROP OU HS, (Reported) Entered as Reported by: ABHINAV CAZARES on 12/10/211254 Last Action: Reviewed Losartan Potassium (Losartan Potassium) 25 Mg Tablet, 12.5 MG PO DAILY, (Reported) Entered as Reported by: CLARISA SOARES on 04/20/20 0616 Last Action: Reviewed Metoprolol Tartrate (Metoprolol Tartrate) 50 Mg Tablet, 25 MG PO BID, (Reported) Entered as Reported by: DONATO MORRISON on 03/19/22 1034 Last Action: Reviewed Nitroglycerin (Nitroglycerin) 0.4 Mg Tab.subl, 0.4 MG SL UD PRN for CHEST PAIN (ANGINA), (Reported) Entered as Reported by: DONATO MORRISON on 04/20/20 1038 Last Action: Reviewed Potassium Chloride (Potassium Chloride) 8 Meq Capsule.er, 16 MEQ PO DAILY, (Reported) Entered as Reported by: CALVIN RING on 01/14/22 1335 Last Action: Reviewed Semaglutide (Ozempic) 1 Mg/0.75 Ml (4 Mg/3 Ml) Pen.injctr, 1 MG SQ FRI, (Reported) Entered as Reported by: ABHINAV CAZARES on 12/10/211254 Last Action: Edited Sertraline HCl (Sertraline HCl) 50 Mg Tablet, 75 MG PO 1800, (Reported) Entered as Reported by: ABHINAV CAZARES on 12/10/211254 Last Action: Reviewed Tamsulosin HCl (Flomax) 0.4 Mg Cap, 0.4 MG PO BID, (Reported) Entered as Reported by: ABHINAV CAZARES on 12/10/211254 Last Action: Reviewed Discontinued Medications Metoprolol Tartrate (Metoprolol Tartrate) 50 Mg Tablet, 25 MG PO BID Discontinued Reason: No Longer Taking Prescribed by: EDEN FORDE on 01/28/22 0522 Last Action: Discontinued Physical Exam-Cardiology Physical Exam Vital Signs/I&O 03/25/22 03/25/22 03/25/22 03/25/22 00:07 01:00 03:20 06:59 Temp 36.5 36.6 Pulse 71 70 72 71 Resp 16 18 B/P (MAP) 121/57 (78) 140/65 (90) Pulse Ox 97 97 O2 Delivery Room Air Room Air 03/25/22 03/25/22 03/25/22 07:03 07:45 08:59 Temp 36.1 Pulse 71 77 99 Resp 18 B/P (MAP) 135/64 (87) Pulse Ox 98 O2 Delivery Room Air 03/25/22 00:00 Intake Total 2615 ml Output Total 300 ml Balance 2315 ml Capillary Refill : Less Than 3 Seconds Constitutional: AAO x 3, well-developed, well-nourished HEENT: PERRL, hearing is well preserved, oral hygience is good Neck: No carotid bruit; carotid pulses are 2 + bilaterally Respiratory: No accessory muscle use, No respiratory distress; chest expansion is symmetric, chest is bilaterally symmetric, lungs clear to auscultation Cardiovascular: regular rate-rhythm; No JVD; S1 and S2 Gastrointestinal: No tender; soft, round, audible bowel sounds Extremities: no lower extremity edema bilateral Neurologic/Psychiatric: grossly intact (moves all extremities) Skin: No rash on exposed areas, No ulcerations on exposed areas Data Review Labs Laboratory Tests 03/24/22 10:47: Glucometer 96 03/24/22 15:48: Glucometer 91 03/24/22 19:52: Glucometer 136H 03/24/22 20:33: Glucometer 104 03/25/22 05:58: White Blood Count 8.6, Red Blood Count 3.94L, Hemoglobin 11.1L, Hematocrit 34L, Mean Corpuscular Volume 87, Mean Corpuscular Hemoglobin 28, Mean Corpuscular Hemoglobin Concent 33, Red Cell Distribution Width 15.8H, Platelet Count 107L, Mean Platelet Volume 11.3, Immature Granulocyte % (Auto) 1, Neutrophils (%) (Auto) 72, Lymphocytes (%) (Auto) 18, Monocytes (%) (Auto) 6, Eosinophils (%) (Auto) 3, Basophils (%) (Auto) 1, Neutrophils # (Auto) 6.2, Lymphocytes # (Auto) 1.6, Monocytes # (Auto) 0.5, Eosinophils # (Auto) 0.3, Basophils # (Auto) 0.1, Immature Granulocyte # (Auto) 0.1, Percent Immature Platelet Fraction 5.7, Sodium Level 140, Potassium Level 4.0, Chloride Level 110H, Carbon Dioxide Level 21, Anion Gap 9, Blood Urea Nitrogen 20H, Creatinine 0.81, Estimat Glomerular Filtration Rate 87, BUN/Creatinine Ratio 25, Glucose Level 50*L, Glucometer 46*L , Calcium Level 8.8, Corrected Calcium 9.7, Total Bilirubin 0.5, Aspartate Amino Transf (AST/SGOT) 15, Alanine Aminotransferase (ALT/SGPT) 13, Alkaline Phosphatase 77, Total Protein 5.2L, Albumin 2.9L 03/25/22 06:29: Glucometer 61L Microbiology 03/19/22 C. difficile GDH Antigen & Toxins - Final, Complete 03/19/22 Stool Culture - Final, Complete 03/19/22 Blood Culture - Final, Complete No growth 03/19/22 Urine Culture - Final, Complete Pseudomonas aeruginosa Radiology NAME: KAREN CARTER [facility] REC#: [id number] PT STATUS: REG ER : 1935 PHYSICIAN: MARYJO MILLER DO ADMIT DATE: 03/19/22/ER Signed Date of Exam:03/19/22 CHEST 1 VIEW, AP/PA ONLY EXAMINATION: Chest 1 view HISTORY: Weakness. COMPARISON: 01/14/2022. FINDINGS: Lung volumes are low. Bibasilar opacities are present. Small left pleural effusion is seen. No pneumothorax. Stable prominent cardiac silhouette. Right pectoral pacemaker is stable. IMPRESSION: 1. Low lung volumes with bibasilar opacities favored to represent atelectasis or edema. 2. Small bilateral pleural effusions. 3. Stable cardiomegaly. Dictated by: Dictated on workstation # [id number] Dict: 03/19/22642 Trans: 03/19/22701 [facility] [id number] Interpreted by: LARISA LI DO Electronically signed by: LARISA LI DO 03/19/22701 ECG Impression ECG Comment Atrial pacing A/P-Cardiology Assessment/Admission Diagnosis Diarrhea - suspected c-diff - being managed by medical services Poor balance of undetermined etiology - unchanged - following with neurology in [place], [place] Shortness of breath with exertion - chronic and unchanged - Echocardiogram of 06-08-20. LVEF 60-65%. Grade 2 diastolic dysfunction. Mild MR. Mild to mod TR. PASP 50-55mmHg H/o dual ch perm pacemaker ([employer] / [employer]) - implanted for symptomatic bradycardia in Nov [address] Brooks in [place], [place]. - gen change in late August 2020 - device functioning normally per interrogation of 11-07-21 - atrial pacing seen on ECG of 03-19-22 S/p TAVR - ([employer] Model [id number], Sr no [id number]) on 12/24/19 at [place], [place] H/o SVT and A Fib/Fl - stated to have been treated with ablation in October 2016 at [facility] in [place], [place] - chronic apixaban anticoagulation CAD - H/o cor stents in Mar [address] [facility]. - MPI of 01-16-21 No evidence of any significant myocardial ischemia or infarction on this study. Normal regional wall motion. Normal global left ventricular systolic function with a calculated ejection fraction of 71%. COPD - managed by PCP DM II - managed by PCP Obesity - with BMI approx 38.5 and obesity-hypoventilation and MONISHA Medication Allergies - (per pt report): Anaphylaxis for penicillin and phenergan - bronchospasm with sotalol and rozarem Opthamology - H/o bilateral cataract surgery and lens implants L-sided, dry, macular degen Mild hearing loss - unchanged Carotid dz - There appears to be considerable plaque and moderate stenosis of the R common carotid and mild to moderate stenosis of the R internal carotid. Approximately 50% L internal carotid artery stenosis per u/s of Feb 23, 2020 - Carotid u/s of 07-03-21 shows approx 60-79% L ICA and approx 50% R ICA stenosis Leg discomfort - Segmentals pressure of Feb 23, 2020 showed no evidence of any signif blood flow impairment to the distal arterial circulation of the lower limbs. Prox atherosclerosis is suggested. - No c/o claudication Discussion and Recomendations Diarrhea d/t prob c-diff - management per medical services Continue home medications ECG reviewed from 03-19-22 which shows atrial pacing Monitor lab closely Further recs will be based on his hospital course We would like to thank medical services for this consult JAZMIN KERN Mar 20, 2022 11:14
[2022-03-20 11:33] VITALS: BP 140/65
--- NOTE | 2022-03-20 15:56 | Progress Note ---
Subjective Subjective/Events-last exam Patient states that he is feeling alittle better. He was able to eat his breakfast. He has still had incontinence of stool. He was able to get OOB and walk to window. Review of Systems General: Fatigue, Malaise Pulmonary: No Dyspnea, No Cough Cardiovascular: No: Chest Pain, Palpitations Gastrointestinal: Nausea, Abdominal Pain, Diarrhea; No: Vomiting Neurological: Weakness, Incoordination Focused Exam Lactate Level 03/19/22 05:25: Lactic Acid Level 1.19 Objective Exam Last Set of Vital Signs Vital Signs Date Time Temp Pulse Resp B/P (MAP) Pulse Ox O2 Delivery O2 Flow Rate FiO2 03/20/22 15:08 95 Room Air 03/20/22 13:00 77 03/20/22 11:33 36.4 18 140/65 (90) 03/19/22 08:51 21 Capillary Refill : Less Than 3 Seconds I&O Intake and Output 03/20/22 00:00 Intake Total 3270 ml Output Total 651 ml Balance 2619 ml Intake Oral 770 ml IV Total 2500 ml Output Urine Total 650 ml Stool Total 1 ml # Bowel Movements 5 Daily Weight Change Yes, Greater than 33 lbs General: Alert, Oriented X3, No Acute Distress Lungs: Clear to Auscultation, Normal Air Movement Heart: Regular Rate, No Murmurs Abdomen: Normal Bowel Sounds, Soft, No Tenderness, No Masses Extremities: No Edema, No Tenderness/Swelling Neuro: Normal Speech Results/Procedures Lab Laboratory Tests 03/19/22 20:15: Glucometer 86 03/20/22 05:31: Glucometer 61L 03/20/22 06:20: Sodium Level 141, Potassium Level 3.8, Chloride Level 117H, Carbon Dioxide Level 17L, Anion Gap 7, Blood Urea Nitrogen 19H, Creatinine 0.97, Estimat Glomerular Filtration Rate 77, BUN/Creatinine Ratio 20, Glucose Level 110H, Calcium Level 8.2L 03/20/22 11:17: Glucometer 120H Microbiology 03/19/22 C. difficile GDH Antigen & Toxins - Final, Resulted 03/19/22 Stool Culture - Preliminary, Resulted 03/19/22 Urine Culture - Preliminary, Resulted Pseudomonas aeruginosa 03/19/22 Blood Culture - Preliminary, Resulted Probable Coag Negative Staph Radiology NAME: KAREN CARTER [facility] REC#: [id number] PT STATUS: REG ER : 1935 PHYSICIAN: MARYJO MILLER DO ADMIT DATE: 03/19/22/ER Signed Date of Exam:03/19/22 CHEST 1 VIEW, AP/PA ONLY EXAMINATION: Chest 1 view HISTORY: Weakness. COMPARISON: 01/14/2022. FINDINGS: Lung volumes are low. Bibasilar opacities are present. Small left pleural effusion is seen. No pneumothorax. Stable prominent cardiac silhouette. Right pectoral pacemaker is stable. IMPRESSION: 1. Low lung volumes with bibasilar opacities favored to represent atelectasis or edema. 2. Small bilateral pleural effusions. 3. Stable cardiomegaly. Dictated by: Dictated on workstation # [id number] Dict: 03/19/2243 Trans: 03/19/22701 [facility] [id number] Interpreted by: LARISA LI DO Electronically signed by: LARISA LI DO 03/19/2202 Assessment/Plan Assessment/Plan (1) Weakness Status: Acute Assessment & Plan: - Likely 2/2 to infection, PT ordered (2) Diarrhea Status: Acute Assessment & Plan: - Due to recent C. Diff infection we are treating empirically for C. Diff, continue PO Vanco, Maintain contact precautions 03/20: Will likely need long taper for treatment, Urine culture with Psuedomonas which we are not treating likely due to colonization because patient does not have symptoms, CRP and Procal are both normal. Qualifiers: Qualified Codes: R19.7 - Diarrhea, unspecified (3) H/O Clostridium difficile infection Status: Acute (4) CAD (coronary artery disease) Status: Chronic Qualifiers: Qualified Codes: I25.10 - Atherosclerotic heart disease of [place] coronary artery without angina pectoris (5) IDDM (insulin dependent diabetes mellitus) Status: Acute Assessment & Plan: - Restarted home meds, ADA diet (6) Afib Status: Chronic Assessment & Plan: - rate controlled on OAC (7) HTN (hypertension) Status: Acute Assessment & Plan: - Restart home meds Qualifiers: Qualified Codes: I10 - Essential (primary) hypertension (8) Advanced age ABRAHAM TOSCANO MD Mar 20, 2022 15:56
[2022-03-20 16:00] VITALS: BP 141/65
--- NOTE | 2022-03-20 17:15 | Consultation-Cardiology ---
HPI-Cardiology Cardiology Consultation: Date of Consultation 03/20/22 Time Seen by a Provider: 16:40 Date of Admission Attending Physician Donato Paz DO Admitting Physician Admitting Physician: Marielena Carter MD Attending Physician: Radha Forde DO Consulting Physician MERCEDES VAZQUEZ MD, MA, FACP, FACC, [facility] [place], CCDS Physician requesting consult: Dr Forde HPI: Chief Complaint: Reason for consultation: Arrhythmia Mr. Johnson is an 86 yr old male admitted to 418 from the ED with c/o diarrhea and increasing weakness. He reports he had c-diff a few months ago. He developed diarrhea yesterday and came to the ED. He denies any c/o CP, SOB, palpitations, syncope or near syncope. No c/o LE swelling. Review of Systems-Cardiology Review of Systems Constitutional: No chills, No fever; malaise Eyes: No vision change Ears/Nose/Throat: No epistaxis, No recent hearing loss Respiratory: As described under HPI Cardiovascular: As described under HPI Gastrointestinal: As described under HPI Genitourinary: No dysuria, No hematuria Musculoskeletal: no symptoms reported Skin: No rash on exposed areas, No ulcerations on exposed areas Psychiatric/Neurological: No anxiety, No depression, No seizure, No focal weakness, No syncope Hematologic: No bleeding abnormalities All Other Systems Reviewed Negative Unless Noted: Yes MRR-Fpyivy-Qotxvp Hx Patient Social History Living Status: Lives at home with 2nd Hand Smoke Exposure: No Have you traveled recently?: No Alcohol Use?: No Pt feels they are or have been: No Immunizations Up To Date Tetanus Booster (TDap): Unknown Date of Pneumonia Vaccine: Feb 11, 2017 Date of Influenza Vaccine: Jan 16, 2020 Past Medical History PMH As described under Assessment. Family Medical History Family Medical History: H/O CAD in his father, brother and a son Allergies and Home Medications Allergies Coded Allergies: Penicillins (Verified Allergy, Severe, Anaphylaxis, 01/15/22) promethazine (Verified Allergy, Severe, Anaphylaxis, 01/15/22) ramelteon (Verified Allergy, Unknown, Shortness of Breath, 02/27/20) "Severe bronchospasm" sotalol (Verified Allergy, Unknown, Shortness of Breath, 02/27/20) "Severe bronchospasm" Patient Home Medication List Home Medication List Reviewed: Yes Albuterol Sulfate (Ventolin Hfa) 18 Gm Hfa.aer.ad, 2 PUFF INH Q4H PRN for SHORTNESS OF BREATH, (Reported) Entered as Reported by: DONATO MORRISON on 04/20/20 1038 Last Action: Reviewed Apixaban (Eliquis) 5 Mg Tablet, 5 MG PO BID, (Reported) Entered as Reported by: CLARISA SOARES on 04/20/20 0616 Last Action: Reviewed Aspirin (Aspirin EC) 81 Mg Tablet.dr, 162 MG PO HS, (Reported) Entered as Reported by: DONATO MORRISON on 04/20/20 1049 Last Action: Reviewed Atorvastatin Calcium (Atorvastatin Calcium) 20 Mg Tablet, 20 MG PO HS, (Reported) Entered as Reported by: CLARISA SOARES on 04/20/20615 Last Action: Reviewed Calcium Carbonate/Vitamin D3 (Calcium 600 + Vit D3 400 Tab) 1 Each Tablet, 1 EACH PO DAILY, (Reported) Entered as Reported by: CLARISA SOARES on 04/20/20 0616 Last Action: Reviewed Empagliflozin (Jardiance) 25 Mg Tablet, 25 MG PO DAILY, (Reported) Entered as Reported by: ABHINAV CAZARES on 12/10/21 1255 Last Action: Reviewed Famotidine (Famotidine) 20 Mg Tablet, 20 MG PO DAILY Prescribed by: RADHA FORDE on 01/28/22 0522 Last Action: Reviewed Fluticasone/Umeclidin/Vilanter (Trelegy Ellipta 100-62.5-25) 1 Each Blst.w.dev, 1 PUFF INH HS, (Reported) Entered as Reported by: CLARISA SOARES on 04/20/20 0616 Last Action: Converted Furosemide (Furosemide) 20 Mg Tablet, 20 MG PO DAILY, (Reported) Entered as Reported by: EMELYN CABRERA on 09/12/20 0742 Last Action: Reviewed Glucagon (Gvoke Hypopen) 0.5 Mg/0.1 Ml Auto.injct, 0.5 MG SQ UD PRN for HYPOGLYCEMIA, (Reported) Entered as Reported by: CALVIN RING on 01/14/22 1338 Last Action: Reviewed Insulin Aspart (Insulin Aspart Flexpen) 100 Unit/Ml (3 Ml) Insuln.pen, UNIT SQ AC PRN for HYPERGLYCEMIA, (Reported) Entered as Reported by: DONATO MORRISON on 03/19/22 1034 Last Action: Reviewed Insulin Degludec (Tresiba Flextouch U-200) 200 Unit/Ml (3 Ml) Insuln.pen, 134 UNITS SQ DAILY, (Reported) Entered as Reported by: ABHINAV CAZARES on 12/10/211254 Last Action: Converted Latanoprost/Pf (Latanoprost 0.005% Eye Drop) 0.005 % Drops, 1 DROP OU HS, (Reported) Entered as Reported by: ABHINAV CAZARES on 12/10/21 125 Last Action: Reviewed Losartan Potassium (Losartan Potassium) 25 Mg Tablet, 12.5 MG PO DAILY, (Reported) Entered as Reported by: CLARISA SOARES on 04/20/20 0616 Last Action: Reviewed Metoprolol Tartrate (Metoprolol Tartrate) 50 Mg Tablet, 25 MG PO BID, (Reported) Entered as Reported by: DONATO MORRISON on 03/19/22 1034 Last Action: Reviewed Nitroglycerin (Nitroglycerin) 0.4 Mg Tab.subl, 0.4 MG SL UD PRN for CHEST PAIN (ANGINA), (Reported) Entered as Reported by: DONATO MORRISON on 04/20/20 1038 Last Action: Reviewed Potassium Chloride (Potassium Chloride) 8 Meq Capsule.er, 16 MEQ PO DAILY, ( Reported) Entered as Reported by: CALVIN RING on 01/14/22 1335 Last Action: Reviewed Semaglutide (Ozempic) 1 Mg/0.75 Ml (4 Mg/3 Ml) Pen.injctr, 1 MG SQ FRI, (Reported) Entered as Reported by: ABHINAV CAZARES on 12/10/21 125 Last Action: Edited Sertraline HCl (Sertraline HCl) 50 Mg Tablet, 75 MG PO 1800, (Reported) Entered as Reported by: ABHINAV CAZARES on 12/10/21 125 Last Action: Reviewed Tamsulosin HCl (Flomax) 0.4 Mg Cap, 0.4 MG PO BID, (Reported) Entered as Reported by: ABHINAV CAZARES on 12/10/211254 Last Action: Reviewed Discontinued Medications Metoprolol Tartrate (Metoprolol Tartrate) 50 Mg Tablet, 25 MG PO BID Discontinued Reason: No Longer Taking Prescribed by: RADHA FORDE on 01/28/22521 Last Action: Discontinued Physical Exam-Cardiology Physical Exam Vital Signs/I&O 03/20/22 03/20/22 03/20/22 03/20/22 07:00 07:30 07:44 11:33 Temp 36.3 36.4 Pulse 90 70 69 Resp 18 18 B/P (MAP) 128/65 (86) 140/65 (90) Pulse Ox 94 97 95 O2 Delivery Room Air Room Air Room Air 03/20/22 03/20/22 03/20/22 13:00 15:08 16:00 Temp 36.5 Pulse 77 85 Resp 16 B/P (MAP) 141/65 (90) Pulse Ox 95 96 O2 Delivery Room Air Room Air 03/20/22 00:00 Intake Total 1370 ml Output Total 651 ml Balance 719 ml Capillary Refill : Less Than 3 Seconds Constitutional: AAO x 3, well-developed, well-nourished HEENT: PERRL, hearing is well preserved, oral hygience is good Neck: No carotid bruit; carotid pulses are 2 + bilaterally Respiratory: No accessory muscle use, No respiratory distress; chest expansion is symmetric, chest is bilaterally symmetric, lungs clear to auscultation Cardiovascular: regular rate-rhythm; No JVD; S1 and S2 Gastrointestinal: No tender; soft, round, audible bowel sounds Extremities: no lower extremity edema bilateral Neurologic/Psychiatric: other (moves all limbs equally) Skin: No rash on exposed areas, No ulcerations on exposed areas Data Review Labs Laboratory Tests 03/19/22 20:15: Glucometer 86 03/20/22 05:31: Glucometer 61L 03/20/22 06:20: Sodium Level 141, Potassium Level 3.8, Chloride Level 117H, Carbon Dioxide Level 17L, Anion Gap 7, Blood Urea Nitrogen 19H, Creatinine 0.97, Estimat Glomerular Filtration Rate 77, BUN/Creatinine Ratio 20, Glucose Level 110H, Calcium Level 8.2L 03/20/22 11:17: Glucometer 120H 03/20/22 16:27: Glucometer 96 Microbiology 03/19/22 C. difficile GDH Antigen & Toxins - Final, Resulted 03/19/22 Stool Culture - Preliminary, Resulted 03/19/22 Blood Culture - Preliminary, Resulted No growth 03/19/22 Urine Culture - Preliminary, Resulted Pseudomonas aeruginosa A/P-Cardiology Assessment/Admission Diagnosis Diarrhea - suspected c-diff - being managed by Medical services Poor balance of undetermined etiology - unchanged - following with neurology in [place], [place] Shortness of breath with exertion - chronic and unchanged - Echocardiogram of 06-08-20. LVEF 60-65%. Grade 2 diastolic dysfunction. Mild MR. Mild to mod TR. PASP 50-55mmHg H/o dual ch perm pacemaker ([employer] / [employer]) - implanted for symptomatic bradycardia in Nov [address] Brooks in [place], [place]. - gen change in late August 2020 - device functioning normally per interrogation of 11-07-21 - atrial pacing seen on ECG of 03-19-22 S/p TAVR - ([employer] Model [id number], Sr no [id number]) on 12/24/19 at [place], [place] H/o SVT and A Fib/Fl - stated to have been treated with ablation in October 2016 at [facility] in [place], [place] - chronic apixaban anticoagulation CAD - H/o cor stents in Mar 2015 at [facility]. - MPI of 01-16-21 No evidence of any significant myocardial ischemia or infarction on this study. Normal regional wall motion. Normal global left ventricular systolic function with a calculated ejection fraction of 71%. COPD - managed by PCP DM II - managed by PCP Obesity - with BMI approx 38.5 and obesity-hypoventilation and MONISHA Medication Allergies - (per pt report): Anaphylaxis for penicillin and phenergan - bronchospasm with sotalol and rozarem Opthamology - H/o bilateral cataract surgery and lens implants L-sided, dry, macular degen Mild hearing loss - unchanged Carotid dz - There appears to be considerable plaque and moderate stenosis of the R common carotid and mild to moderate stenosis of the R internal carotid. Approximately 50% L internal carotid artery stenosis per u/s of Feb 23, 2020 - Carotid u/s of 07-03-21 shows approx 60-79% L ICA and approx 50% R ICA stenosis Leg discomfort - Segmentals pressure of Feb 23, 2020 showed no evidence of any signif blood flow impairment to the distal arterial circulation of the lower limbs. Prox atherosclerosis is suggested. - No c/o claudication Discussion and Recomendations Diarrhea d/t prob c-diff - management per medical services Continue home medications ECG reviewed from 03-19-22 which shows atrial pacing Monitor lab closely Further recs will be based on his hospital course We would like to thank Medical services for this consult MERCEDES VAZQUEZ MD FACP [facility] CCDS Mar 20, 2022 17:15
[2022-03-20] MEDS: TAMSULOSIN 0.4 MG (FLOMAX) CAP PO SCH (17:44)
[2022-03-20 20:21] VITALS: BP 126/46
[2022-03-20] MEDS: LATANOPROST 0.005% (XALATAN) OPHTH SOLN 2.5 ML OU SCH (21:40)
[2022-03-20] MEDS: [UNRECOGNIZED DRUG - REMARK] IH SCH (21:40)
[2022-03-21] VITALS (8 sets, daily range): BP systolic 121–160; BP diastolic 54–73
[2022-03-21] MEDS: NS IV 1000 ML 1,000 ML IV SCH ×2 (00:25→05:59)
[2022-03-21] MEDS: VANCOMYCIN 125 MG CAPSULE PO SCH ×5 (00:25→20:31)
[2022-03-21] MEDS: RT-ALBUTEROL/IPRATROPIUM 3 ML (DUONEB) VIAL INH SCH ×4 (03:04→20:53)
--- NOTE | 2022-03-21 05:23 | Progress Note - Hospitalist ---
Subjective HPI/CC On Admission Date Seen by Provider: Mar 21, 2022 Time Seen by Provider: 09:30 Subjective/Events-last exam Doing well Vanc PO QID tolerated Colonized UA with Pseudomonas Doing better per Review of Systems General: Fatigue, Malaise Focused Exam Lactate Level 03/19/22 05:25: Lactic Acid Level 1.19 Objective Exam Vital Signs Vital Signs Date Time Temp Pulse Resp B/P (MAP) Pulse Ox O2 Delivery O2 Flow Rate FiO2 03/21/22 16:00 36.4 95 19 139/65 (89) 95 Room Air 03/19/22 08:51 21 Capillary Refill : Less Than 3 Seconds General Appearance: No Apparent Distress, WD/WN, Chronically ill Respiratory: Lungs Clear, Normal Breath Sounds Cardiovascular: Regular Rate, Rhythm Neurologic/Psychiatric: Alert, Oriented x3, No Motor/Sensory Deficits, Normal Mood/Affect Results/Procedures Lab Laboratory Tests 03/21/22 05:20 Patient resulted labs reviewed. 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
[2022-03-21 05:30] LABS: BASOPHILS % (AUTO) 0 % (0-10); EOSINOPHILS # (AUTO) 0.2 10^3/uL (0.0-0.3); EOSINOPHILS % (AUTO) 2 % (0-10); HEMATOCRIT 34 % (40-54); LYMPHOCYTES # (AUTO) 1.5 10^3/uL (1.0-4.0); LYMPHOCYTES % (AUTO) 15 % (12-44); MEAN CORPUSCULAR HEMOGLOBIN 28 pg (25-34); MEAN CORPUSCULAR HGB CONC 32 g/dL (32-36); MEAN CORPUSCULAR VOLUME 88 fL (80-99); MEAN PLATELET VOLUME 11.7 fL (9.0-12.2); MONOCYTES # (AUTO) 0.6 10^3/uL (0.0-1.0); MONOCYTES % (AUTO) 6 % (0-12); NEUTROPHILS # (AUTO) 7.5 10^3/uL (1.8-7.8); NEUTROPHILS % (AUTO) 76 % (42-75); PLATELET COUNT 88 10^3/uL (130-400); WHITE BLOOD COUNT 9.8 10^3/uL (4.3-11.0)
[2022-03-21 05:42] LABS: POTASSIUM 3.8 MMOL/L (3.6-5.0)
[2022-03-21 05:44] LABS: CALCIUM 8.4 MG/DL (8.5-10.1)
[2022-03-21 05:48] LABS: CREATININE SERUM 0.81 MG/DL (0.60-1.30)
[2022-03-21] MEDS ORDERED: DEXTROSE 50% 50 ML (IMS) SYR IV ONE (06:15)
[2022-03-21] MEDS: D5 NS 1000 ML IV SOLUTION 1,000 ML IV SCH ×2 (08:16→17:26)
[2022-03-21] MEDS: APIXABAN 5 MG (ELIQUIS) TABLET PO SCH ×2 (08:18→20:31)
[2022-03-21] MEDS: ASPIRIN 81 MG CHEW (CHILDREN'S ASA) PO SCH (08:18)
[2022-03-21] MEDS: SERTRALINE 50 MG (ZOLOFT) TABLET PO SCH (08:18)
[2022-03-21] MEDS: LOSARTAN 25 MG (COZAAR) TAB PO SCH (08:19)
[2022-03-21] MEDS: [UNRECOGNIZED DRUG - REMARK] SQ SCH (08:26)
--- NOTE | 2022-03-21 09:15 | Physical Therapy Progress Note ---
Therapy Progress Note Patient sitting EOB with breakfast in situ. Patient declined PT at this time. Will attempt tomorrow a.m. 1 ref SHAWNA TAVARES PT Mar 21, 2022 09:15
--- NOTE | 2022-03-21 13:02 | Occupational Therapy Eval ---
OT Evaluation-General/PLF Medical Diagnosis Admission Date Mar 19, 2022 at 06:28 Medical Diagnosis: Abdominal/GI Problems Onset Date: Mar 19, 2022 Therapy Diagnosis Therapy Diagnosis: Weakness, Decreased ADL skills Precautions Precautions/Isolations: Fall Prevention, Contact/Enteric Isolation Weight Bear Status Weight Bearing Restriction: Weight Bearing/Tolerated Referral Physician: Emma Portillo Reason: Activity Tolerance, Self Care, Evaluation/Treatment, Strengthening/ROM Medical History Pertinent Medical History: Atrial Fib, CAD, COPD, DM, HTN, Neuropathy Additional Medical History History of C-diff Reviewed History: Yes Social History Home: Single Level Current Living Status: Spouse Entry Into Home: Ramp Pt. also uses an electric scooter. ADL-Prior Level of Function SCALE: Activities may be completed with or without assistive devices. 2-Xfotrvadkl-cpjhonk completes the activity by him/herself with no assistance from a helper. 5-Set-up or Clean-up Assistance-helper sets up or cleans up; patient completes activity. Carman assists only prior to or following the activity. 4-Supervision or Touching Assistance-helper provides verbal cues and/or touching/steadying and/or contact guard assistance as patient completes activity. Assistance may be provided throughout the activity or intermittently. 3-Partial/Moderate Assistance-helper does LESS THAN HALF the effort. Carman lifts, holds or supports trunk or limbs, but provides less than half the effort. 2-Substantial/Maximal Assistance-helper does MORE THAN HALF the effort. Carman lifts or holds trunk or limbs and provides more than half the effort. 4-Kwdjeeblg-uripqh does ALL the effort. Patient does none of the effort to complete the activity. Or, the assistance of 2 or more helpers is required for the patient to complete the activity. If activity was not attempted, code reason: 7-Patient Refused. 9-Not Applicable-not attempted and the patient did not perform the activity before the current illness, exacerbation or injury. 10-Not Attempted due to Environmental Limitations-(lack of equipment, weather restraints, etc.). 88-Not Attempted due to Medical Conditions or Safety Concerns. ADL PLOF Comments Spouse in room as well. States that pt. can dress self, but needs assistance to bathe. He uses an electric scooter for mobility. He can transfer otherwise wi th walker. 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 has walk in shower and was getting ready at home to start practicing shower transfers with home health. OT Current Status Subjective No pain reported, just weakness Mental Status/Objective Patient Orientation: Person, Place, Time, Situation Attachments: Yanes Catheter, IV Current Upper Extremity ROM WFL ADL-Treatment Eating (QC): 6 On/Off Footwear (QC): 3 (Mod assist. Pt. able to doff slipper socks with great effort, but requires assist to don them.) Pt. is up in chair. Agrees to stand at walker. Pt. requires mod assist for sit-stand. He stands approximately 30 seconds before stating that he needs to sit down quickly. Education OT Patient Education: Correct positioning, Modified ADL techniques, Progress toward Goal/Update tx plan, Purpose of tx/functional activities, Reviewed precautions, Rehab process, Transfer techniques Teaching Recipient: Patient, Family Teaching Methods: Demonstration, Discussion Response to Teaching: Verbalize Understanding, Return Demonstration OT Short Term Goals Short Term Goals Time Frame: Apr 04, 2022 Eatin Oral hygiene: 5 Toileting hygiene: 3 Shower/bathe self: 3 Upper body dressin Lower body dressin Putting on/taking off footwear: 4 OT Sign Language Translator Goals Sign Language Translator Goals Time Frame: Apr 18, 2022 Eating (QC): 6 Oral Hygiene (QC): 6 Toileting Hygiene (QC): 5 Shower/Bathe Self (QC): 5 Upper Body Dressing (QC): 6 Lower Body Dressing (QC): 6 (with AE) On/Off Footwear (QC): 6 (with AE) Additional Goals: 1-Demonstrate ADL Tasks, 2-Verbalize Understanding, 3- ImproveStrength/Rani 1=Demonstrate adherence to instructed precautions during ADL tasks. 2=Patient will verbalize/demonstrate understanding of assistive devices/modifications for ADL. 3=Patient will improve strength/tolerance for activity to enable patient to perform ADL's. OT Education/Plan Problem List/Assessment Assessment: Decreased Activ Tolerance, Dependent Transfers, Impaired Funct Balance, Impaired I ADL's, Impaired Self-Care Skills Discharge Recommendations Plan/Recommendations: Continue POC Therapy Discharge Recommendati: Post Acute OT Equpiment Recommendations-D/C: Hip Kit Treatment Plan/Plan of Care Treatment,Training & Education: Yes Patient would benefit from OT for education, treatment and training to promote independence in ADL's, mobility, safety and/or upper extremity function for ADL's. Plan of Care: ADL Retraining, Functional Mobility, UE Funct Exercise/Act Treatment Duration: Apr 18, 2022 Frequency: 3 times per week (3-5x/week) Estimated Hrs Per Day: .25 hour per day Agreement: Yes Rehab Potential: Fair Time Start Time: 11:35 Stop Time: 11:50 DATE: Mar 21, 2022 Total Time Billed (hr/min): 15 Billed Treatment Time 1, CHARLES GEIGER OT Mar 21, 2022 13:02
[2022-03-21] MEDS: TAMSULOSIN 0.4 MG (FLOMAX) CAP PO SCH (17:14)
[2022-03-21] MEDS: [UNRECOGNIZED DRUG - REMARK] IH SCH (20:32)
[2022-03-21] MEDS: LATANOPROST 0.005% (XALATAN) OPHTH SOLN 2.5 ML OU SCH (20:32)
[2022-03-22] MEDS: RT-ALBUTEROL/IPRATROPIUM 3 ML (DUONEB) VIAL INH SCH ×3 (02:36→20:37)
[2022-03-22 03:07] VITALS: BP 142/64
[2022-03-22] MEDS ORDERED: RT-ALBUTEROL/IPRATROPIUM 3 ML (DUONEB) VIAL INH PRN (03:15)
[2022-03-22 03:54] VITALS: BP 149/78
--- NOTE | 2022-03-22 06:13 | Progress Note - Hospitalist ---
Subjective HPI/CC On Admission Date Seen by Provider: Mar 22, 2022 Time Seen by Provider: 10:00 Subjective/Events-last exam Improved No diarrhea since yesterday His weakness is a concern for his Will initiate inpatient status since not going home today Back to near baseline per therapy so will not be a candidate for ARU Review of Systems General: Fatigue, Malaise Objective Exam Vital Signs Vital Signs Date Time Temp Pulse Resp B/P (MAP) Pulse Ox O2 Delivery O2 Flow Rate FiO2 03/22/22 12:48 70 03/22/22 12:28 36.6 18 152/70 (97) 98 Room Air 03/22/22 03:07 21 Capillary Refill : Less Than 3 Seconds General Appearance: No Apparent Distress, WD/WN, Chronically ill Respiratory: Lungs Clear, Normal Breath Sounds Cardiovascular: Regular Rate, Rhythm Neurologic/Psychiatric: Alert, Oriented x3 Results/Procedures Lab Patient resulted labs reviewed. 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
[2022-03-22] MEDS: ASPIRIN 81 MG CHEW (CHILDREN'S ASA) PO SCH (07:52)
[2022-03-22] MEDS: VANCOMYCIN 125 MG CAPSULE PO SCH ×4 (07:52→20:54)
[2022-03-22] MEDS: SERTRALINE 50 MG (ZOLOFT) TABLET PO SCH (07:53)
[2022-03-22] MEDS: LOSARTAN 25 MG (COZAAR) TAB PO SCH (07:53)
[2022-03-22] MEDS: APIXABAN 5 MG (ELIQUIS) TABLET PO SCH ×2 (07:53→20:54)
[2022-03-22 08:03] VITALS: BP 143/71
[2022-03-22] MEDS: [UNRECOGNIZED DRUG - REMARK] SQ SCH ×2 (08:04→11:36)
[2022-03-22] MEDS ORDERED: [UNRECOGNIZED DRUG - REMARK] SQ SCH (09:00)
--- NOTE | 2022-03-22 09:37 | Occupational Ther Daily Note ---
OT Current Status-Daily Note Subjective Pt alert, sitting in recliner. Pt agrees to therapy. No c/o pain. Mental Status/Objective Patient Orientation: Person, Place, Time, Situation Attachments: IV ADL-Treatment Pt independent with eating. Pt took increased time to eat due to decreased focus and hyperverbal. Pt declines any further ADLs. After session, pt sitting in recliner with call light/phone in reach. All needs met in room. Therapy Code Descriptions/Definitions Functional Bucks Measure: 0=Not Assessed/NA 4=Minimal Assistance 1=Total Assistance 5=Supervision or Setup 2=Maximal Assistance 6=Modified Bucks 3=Moderate Assistance 7=Complete IndependenceSCALE: Activities may be completed with or without assistive devices. 9-Bpsdhteuum-slfcgmx completes the activity by him/herself with no assistance from a helper. 5-Set-up or Clean-up Assistance-helper sets up or cleans up; patient completes activity. Nolan assists only prior to or following the activity. 4-Supervision or Touching Assistance-helper provides verbal cues and/or cirilo nallely/steadying and/or contact guard assistance as patient completes activity. Assistance may be provided throughout the activity or intermittently. 3-Partial/Moderate Assistance-helper does LESS THAN HALF the effort. Nolan lifts, holds or supports trunk or limbs, but provides less than half the effort. 2-Substantial/Maximal Assistance-helper does MORE THAN HALF the effort. Nolan lifts or holds trunk or limbs and provides more than half the effort. 7-Kccmwefip-kvtsqh does ALL the effort. Patient does none of the effort to complete the activity. Or, the assistance of 2 or more helpers is required for the patient to complete the activity. If activity was not attempted, code reason: 7-Patient Refused. 9-Not Applicable-not attempted and the patient did not perform the activity before the current illness, exacerbation or injury. 10-Not Attempted due to Environmental Limitations-(lack of equipment, weather restraints, etc.). 88-Not Attempted due to Medical Conditions or Safety Concerns. Pt states that he has a walk-in shower and a tub bench that either goes high or low. OT Short Term Goals Short Term Goals Time Frame: Apr 04, 2022 Eatin Oral hygiene: 5 Toileting hygiene: 3 Shower/bathe self: 3 Upper body dressin Lower body dressin Putting on/taking off footwear: 4 OT Assisted Goals Ur Coordinator Goals Time Frame: Apr 18, 2022 Eating (QC): 6 Oral Hygiene (QC): 6 Toileting Hygiene (QC): 5 Shower/Bathe Self (QC): 5 Upper Body Dressing (QC): 6 Lower Body Dressing (QC): 6 (with AE) On/Off Footwear (QC): 6 (with AE) Additional Goals: 1-Demonstrate ADL Tasks, 2-Verbalize Understanding, 3- ImproveStrength/Rani 1=Demonstrate adherence to instructed precautions during ADL tasks. 2=Patient will verbalize/demonstrate understanding of assistive devices/modifications for ADL. 3=Patient will improve strength/tolerance for activity to enable patient to perform ADL's. OT Education/Plan Problem List/Assessment Assessment: Decreased Activ Tolerance, Decreased UE Strength, Impaired Self- Care Skills Discharge Recommendations Plan/Recommendations: Continue POC Treatment Plan/Plan of Care Patient would benefit from OT for education, treatment and training to promote independence in ADL's, mobility, safety and/or upper extremity function for ADL's. Plan of Care: ADL Retraining, Functional Mobility, UE Funct Exercise/Act Treatment Duration: Apr 18, 2022 Frequency: 3 times per week (3-5x/week) Estimated Hrs Per Day: .25 hour per day Agreement: Yes Rehab Potential: Fair Time Start Time: 08:59 Stop Time: 09:10 DATE: Mar 22, 2022 Total Time Billed (hr/min): 11 Billed Treatment Time 1 visit-ADL 1 (11 min) SALIMA YIN Mar 22, 2022 09:37
--- NOTE | 2022-03-22 12:03 | Physical Therapy Daily Note ---
PT Daily Note-Current Subjective Pt. in bed states he is feeling better and agrees to Rx Pain Location: No Pain Reported Section J - Health Conditions 1. Rarely or not at all 2. Occasionally 3. Frequently 4. Almost constantly 8. Unable to answer Pain Effect on Sleep: 1 Pain Interference with Therapy: 1 Pain Interference w/Day-to-Day: 1 Mental Status Patient Orientation: Normal For Age Attachments: Yanes Catheter Transfers SCALE: Activities may be completed with or without assistive devices. 8-Imrcdwhpeo-gepibax completes the activity by him/herself with no assistance from a helper. 5-Set-up or Clean-up Assistance-helper sets up or cleans up; patient completes activity. Mcgrath assists only prior to or following the activity. 4-Supervision or Touching Assistance-helper provides verbal cues and/or touching/steadying and/or contact guard assistance as patient completes activity. Assistance may be provided throughout the activity or intermittently. 3-Partial/Moderate Assistance-helper does LESS THAN HALF the effort. Mcgrath lifts, holds or supports trunk or limbs, but provides less than half the effort. 2-Substantial/Maximal Assistance-helper does MORE THAN HALF the effort. Mcgrath lifts or holds trunk or limbs and provides more than half the effort. 0-Jkbmjlupi-ankprn does ALL the effort. Patient does none of the effort to complete the activity. Or, the assistance of 2 or more helpers is required for the patient to complete the activity. If activity was not attempted, code reason: 7-Patient Refused. 9-Not Applicable-not attempted and the patient did not perform the activity before the current illness, exacerbation or injury. 10-Not Attempted due to Environmental Limitations-(lack of equipment, weather restraints, etc.). 88-Not Attempted due to Medical Conditions or Safety Concerns. Roll Left & Right (QC): 6 Lying to Sitting/Side of Bed(Q: 4 Sit to Stand (QC): 6 Chair/Smo-dr-Vlisg Xfer(QC): 6 Weight Bearing Right Lower Extremity: Right Full Weight Bearing Left Lower Extremity: Left Full Weight Bearing Gait Training Does the Patient Walk?: Yes Walk 10 feet (QC): 4 Walk 50 ft with 2 Turns(QC): 4 Gait Persons Needed: 1 Exercises Seated Therapy Exercises: Ankle pumps, Sit to stand, Long arc quads, Hip flexion, Hip abd/add Seated Reps: 12 Treatments TRFs,GT,EX, up in recliner after Rx, martinez at hand Assessment Current Status: Good Progress PT Transformer Repairer Goals Alf Goals PT Alf Goals Time Frame: Mar 27, 2022 Roll Left & Right (QC): 4 (SBA) Sit to Lying (QC): 6 Lying-Sitting on Side/Bed(QC): 4 (SBA) Sit to Stand (QC): 4 (SBA) Chair/Kge-ks-Wxzyo Xfer(QC): 4 (SBA) Toilet Transfer (QC): 4 (SBA) Walk 10 feet (QC): 4 (SBA) Walk 50ft with 2 Turns (QC): 4 (CGA) PT Plan Treatment/Plan Treatment Plan: Continue Plan of Care Treatment Plan: Bed Mobility, Education, Functional Activity Rani, Functional Strength, Gait, Safety, Therapeutic Exercise, Transfers Treatment Duration: Mar 27, 2022 Frequency: 6 times per week Estimated Hrs Per Day: .25 hour per day Patient and/or Family Agrees t: Yes Safety Risks/Education Patient Education: Gait Training, Transfer Techniques, Correct Positioning, Disease Process, Safety Issues Teaching Recipient: Patient Teaching Methods: Demonstration, Discussion Response to Teaching: Verbalize Understanding, Return Demonstration, Reinforcement Needed Time Time In: 1128 Time Out: 1140 DATE: Mar 22, 2022 Total Billed Treatment Time: 12 Total Billed Treatment 1,GT12m IOANA VALLES CONTINUITY MANAGER Mar 22, 2022 12:03
[2022-03-22 12:28] VITALS: BP 152/70
[2022-03-22] MEDS: TERBINAFINE 1% CREAM 1 OZ (LamISIL) TUBE TP SCH ×2 (12:50→20:54)
--- NOTE | 2022-03-22 13:15 | Progress Note - Cardiology ---
Cardiology SOAP Progress Note Subjective: THIS IS LATE ENTRY FOR MY VISIT TO THE PATIENT ON 03/21/22 AT APPROX 11:30 AM No shortness of breath No cp or palp or syncope Notes malaise and weakness Diarrhea is improving. No n/v No swelling Objective: I&O/Vital Signs 03/22/22 03/22/22 03/22/22 03/22/22 03:07 03:54 07:00 07:40 Temp 36.8 Pulse 86 77 83 Resp 20 B/P (MAP) 149/78 (101) Pulse Ox 93 93 95 O2 Delivery Room Air Room Air FiO2 21 03/22/22 03/22/22 03/22/22 03/22/22 08:00 08:03 12:28 12:48 Temp 36.2 36.6 Pulse 88 79 70 Resp 20 18 B/P (MAP) 143/71 (95) 152/70 (97) Pulse Ox 96 96 98 O2 Delivery Room Air Room Air Room Air 03/22/22 00:00 Intake Total 700 ml Output Total 1250 ml Balance -550 ml Constitutional: AAO x 3, well-developed, well-nourished Respiratory: No accessory muscle use, No respiratory distress; chest expansion is symmetric, chest is bilaterally symmetric, lungs clear to auscultation Cardiovascular: regular rate-rhythm; No JVD; S1 and S2 Gastrointestional: No tender; soft, round, audible bowel sounds Extremities: no lower extremity edema bilateral Neurologic/Psychiatric: other (moves all limbs equally) Skin: No rash on exposed areas, No ulcerations on exposed areas Results/Procedures: Labs Laboratory Tests 03/21/22 16:00: Glucometer 159H 03/22/22 07:24: Glucometer 100 03/22/22 11:18: Glucometer 205H Microbiology 03/19/22 C. difficile GDH Antigen & Toxins - Final, Complete 03/19/22 Stool Culture - Final, Complete 03/19/22 Blood Culture - Preliminary, Resulted No growth 03/19/22 Urine Culture - Preliminary, Resulted Pseudomonas aeruginosa A/P: Assessment: Diarrhea - suspected c-diff - being managed by Medical services Poor balance of undetermined etiology - unchanged - following with neurology in [place], [place] Shortness of breath with exertion - chronic and unchanged - Echocardiogram of 06-08-20. LVEF 60-65%. Grade 2 diastolic dysfunction. Mild MR. Mild to mod TR. PASP 50-55mmHg H/o dual ch perm pacemaker ([employer] / [employer]) - implanted for symptomatic bradycardia in Nov [address] Brooks in [place], [place]. - gen change in late August 2020 - device functioning normally per interrogation of 11-07-21 - atrial pacing seen on ECG of 03-19-22 S/p TAVR - (Sep[employer] Bovine Model [id number], Sr no [id number]) on 12/24/19 at [place], [place] H/o SVT and A Fib/Fl - stated to have been treated with ablation in October 2016 at [place], [place] - chronic apixaban anticoagulation CAD - H/o cor stents in Mar 2015 at [facility]. - MPI of 01-16-21 No evidence of any significant myocardial ischemia or infarction on this study. Normal regional wall motion. Normal global left ventricular systolic function with a calculated ejection fraction of 71%. COPD - managed by PCP DM II - managed by PCP Obesity - with BMI approx 38.5 and obesity-hypoventilation and MONISHA Medication Allergies - (per pt report): Anaphylaxis for penicillin and phenergan - bronchospasm with sotalol and rozarem Opthamology - H/o bilateral cataract surgery and lens implants L-sided, dry, macular degen Mild hearing loss - unchanged Carotid dz - There appears to be considerable plaque and moderate stenosis of the R common carotid and mild to moderate stenosis of the R internal carotid. Approximately 50% L internal carotid artery stenosis per u/s of Feb 23, 2020 - Carotid u/s of 07-03-21 shows approx 60-79% L ICA and approx 50% R ICA stenosis Leg discomfort - Segmentals pressure of Feb 23, 2020 showed no evidence of any signif blood flow impairment to the distal arterial circulation of the lower limbs. Prox atherosclerosis is suggested. - No c/o claudication Plan: Cardiac status clinically stable Continue home medications Monitor lab THIS IS LATE ENTRY FOR MY VISIT TO THE PATIENT ON 03/21/22 AT APPROX 11:30 AM MERCEDES VAZQUEZ MD FACP FAC CCDS Mar 22, 2022 13:15
--- NOTE | 2022-03-22 13:16 | Progress Note - Cardiology ---
Cardiology SOAP Progress Note Subjective: No shortness of breath No cp or palp or syncope Notes malaise and weakness Diarrhea has resolved, he says. No n/v No swelling Objective: I&O/Vital Signs 03/22/22 03/22/22 03/22/22 03/22/22 03:07 03:54 07:00 07:40 Temp 36.8 Pulse 86 77 83 Resp 20 B/P (MAP) 149/78 (101) Pulse Ox 93 93 95 O2 Delivery Room Air Room Air FiO2 21 03/22/22 03/22/22 03/22/22 03/22/22 08:00 08:03 12:28 12:48 Temp 36.2 36.6 Pulse 88 79 70 Resp 20 18 B/P (MAP) 143/71 (95) 152/70 (97) Pulse Ox 96 96 98 O2 Delivery Room Air Room Air Room Air 03/22/22 00:00 Intake Total 700 ml Output Total 1250 ml Balance -550 ml Constitutional: AAO x 3, well-developed, well-nourished Respiratory: No accessory muscle use, No respiratory distress; chest expansion is symmetric, chest is bilaterally symmetric, lungs clear to auscultation Cardiovascular: regular rate-rhythm; No JVD; S1 and S2 Gastrointestional: No tender; soft, round, audible bowel sounds Extremities: no lower extremity edema bilateral Neurologic/Psychiatric: other (moves all limbs equally) Skin: No rash on exposed areas, No ulcerations on exposed areas Results/Procedures: Labs Laboratory Tests 03/21/22 16:00: Glucometer 159H 03/22/22 07:24: Glucometer 100 03/22/22 11:18: Glucometer 205H Microbiology 03/19/22 C. difficile GDH Antigen & Toxins - Final, Complete 03/19/22 Stool Culture - Final, Complete 03/19/22 Blood Culture - Preliminary, Resulted No growth 03/19/22 Urine Culture - Preliminary, Resulted Pseudomonas aeruginosa Laboratory Tests 03/21/22 05:20 A/P: Assessment: Diarrhea - suspected c-diff - being managed by Medical services Poor balance of undetermined etiology - unchanged - following with neurology in [place], [place] Shortness of breath with exertion - chronic and unchanged - Echocardiogram of 2. LVEF 60-65%. Grade 2 diastolic dysfunction. Mild MR. Mild to mod TR. PASP 50-55mmHg H/o dual ch perm pacemaker ([employer] / [employer]) - implanted for symptomatic bradycardia in Nov [address] Brooks in [place], [place]. - gen change in late August 2020 - device functioning normally per interrogation of 11-07-21 - atrial pacing seen on ECG of 03-19-22 S/p TAVR - ([employer] Bovine Model [id number], Sr no [id number]) on 12/24/19 at [place], [place] H/o SVT and A Fib/Fl - stated to have been treated with ablation in October 2016 at [facility] in [place], [place] - chronic apixaban anticoagulation CAD - H/o cor stents in Mar 2015 at [facility]. - MPI of 01-16-21 No evidence of any significant myocardial ischemia or infarction on this study. Normal regional wall motion. Normal global left ventricular systolic function with a calculated ejection fraction of 71%. COPD - managed by PCP DM II - managed by PCP Obesity - with BMI approx 38.5 and obesity-hypoventilation and MONISHA Medication Allergies - (per pt report): Anaphylaxis for penicillin and phenergan - bronchospasm with sotalol and rozarem Opthamology - H/o bilateral cataract surgery and lens implants L-sided, dry, macular degen Mild hearing loss - unchanged Carotid dz - There appears to be considerable plaque and moderate stenosis of the R common carotid and mild to moderate stenosis of the R internal carotid. Approximately 50% L internal carotid artery stenosis per u/s of Feb 23, 2020 - Carotid u/s of 07-03-21 shows approx 60-79% L ICA and approx 50% R ICA stenosis Leg discomfort - Segmentals pressure of Feb 23, 2020 showed no evidence of any signif blood flow impairment to the distal arterial circulation of the lower limbs. Prox atherosclerosis is suggested. - No c/o claudication Plan: Cardiac status clinically stable Continue home medications Outpt f/u advised MERCEDES VAZQUEZ MD [facility] CCDS Mar 22, 2022 13:16
[2022-03-22 15:30] VITALS: BP 150/65
[2022-03-22] MEDS: TAMSULOSIN 0.4 MG (FLOMAX) CAP PO SCH (17:04)
[2022-03-22 19:44] VITALS: BP 159/85
[2022-03-22] MEDS: LATANOPROST 0.005% (XALATAN) OPHTH SOLN 2.5 ML OU SCH (20:55)
[2022-03-22] MEDS: [UNRECOGNIZED DRUG - REMARK] IH SCH (20:56)
[2022-03-23 00:06] VITALS: BP 130/65
[2022-03-23 03:46] VITALS: BP 132/62
--- NOTE | 2022-03-23 05:48 | Progress Note - Hospitalist ---
Subjective HPI/CC On Admission Date Seen by Provider: Mar 23, 2022 Time Seen by Provider: 11:00 Subjective/Events-last exam Patient much improved No pain is reported Less diarrhea Weakness improving Review of Systems General: Fatigue, Malaise Gastrointestinal: Diarrhea Objective Exam Vital Signs Vital Signs Date Time Temp Pulse Resp B/P (MAP) Pulse Ox O2 Delivery O2 Flow Rate FiO2 03/23/22 13:00 89 03/23/22 11:31 36.1 16 150/57 (88) 96 03/23/22 09:41 Room Air 03/22/22 03:07 21 Capillary Refill : Less Than 3 Seconds General Appearance: No Apparent Distress, WD/WN, Chronically ill Respiratory: Lungs Clear, Normal Breath Sounds Cardiovascular: Regular Rate, Rhythm Neurologic/Psychiatric: Alert, Oriented x3 Results/Procedures Lab Laboratory Tests 03/23/22 06:11 Patient resulted labs reviewed. 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
[2022-03-23 06:15] LABS: MEAN CORPUSCULAR VOLUME 87 fL (80-99)
[2022-03-23 06:17] LABS: BASOPHILS # (AUTO) 0.1 10^3/uL (0.0-0.1); BASOPHILS % (AUTO) 1 % (0-10); EOSINOPHILS # (AUTO) 0.3 10^3/uL (0.0-0.3); EOSINOPHILS % (AUTO) 3 % (0-10); HEMATOCRIT 33 % (40-54); HEMOGLOBIN 10.8 g/dL (13.3-17.7); LYMPHOCYTES # (AUTO) 1.4 10^3/uL (1.0-4.0); LYMPHOCYTES % (AUTO) 14 % (12-44); MEAN CORPUSCULAR HEMOGLOBIN 28 pg (25-34); MEAN CORPUSCULAR HGB CONC 33 g/dL (32-36); MEAN PLATELET VOLUME 11.6 fL (9.0-12.2); MONOCYTES # (AUTO) 0.7 10^3/uL (0.0-1.0); MONOCYTES % (AUTO) 7 % (0-12); NEUTROPHILS # (AUTO) 7.6 10^3/uL (1.8-7.8); NEUTROPHILS % (AUTO) 76 % (42-75); WHITE BLOOD COUNT 10.1 10^3/uL (4.3-11.0)
[2022-03-23 06:28] LABS: PLATELET COUNT 94 10^3/uL (130-400)
[2022-03-23 06:37] LABS: ALBUMIN 2.8 GM/DL (3.2-4.5); BILIRUBIN,TOTAL 0.7 MG/DL (0.1-1.0); CALCIUM 8.4 MG/DL (8.5-10.1); CREATININE SERUM 0.78 MG/DL (0.60-1.30); POTASSIUM 3.8 MMOL/L (3.6-5.0); TOTAL PROTEIN 5.1 GM/DL (6.4-8.2)
[2022-03-23 08:00] VITALS: BP 147/66
[2022-03-23] MEDS: RT-ALBUTEROL/IPRATROPIUM 3 ML (DUONEB) VIAL INH SCH (08:22)
[2022-03-23] MEDS: ASPIRIN 81 MG CHEW (CHILDREN'S ASA) PO SCH (09:48)
[2022-03-23] MEDS: SERTRALINE 50 MG (ZOLOFT) TABLET PO SCH (09:48)
[2022-03-23] MEDS: VANCOMYCIN 125 MG CAPSULE PO SCH ×4 (09:48→19:38)
[2022-03-23] MEDS: LOSARTAN 25 MG (COZAAR) TAB PO SCH (09:48)
[2022-03-23] MEDS: APIXABAN 5 MG (ELIQUIS) TABLET PO SCH ×2 (09:48→19:38)
[2022-03-23] MEDS: TERBINAFINE 1% CREAM 1 OZ (LamISIL) TUBE TP SCH ×2 (09:50→19:39)
[2022-03-23] MEDS: [UNRECOGNIZED DRUG - REMARK] SQ SCH (09:57)
[2022-03-23 11:31] VITALS: BP 150/57
--- NOTE | 2022-03-23 13:26 | Physical Therapy Daily Note ---
PT Daily Note-Current Subjective Pt. in bathroom with spouse present upon therapist entry. Pain Section J - Health Conditions 1. Rarely or not at all 2. Occasionally 3. Frequently 4. Almost constantly 8. Unable to answer Pain Effect on Sleep: 1 Pain Interference with Therapy: 1 Pain Interference w/Day-to-Day: 1 Transfers SCALE: Activities may be completed with or without assistive devices. 0-Qicjsnbycj-fpzrtwe completes the activity by him/herself with no assistance from a helper. 5-Set-up or Clean-up Assistance-helper sets up or cleans up; patient completes activity. Abernathy assists only prior to or following the activity. 4-Supervision or Touching Assistance-helper provides verbal cues and/or touching/steadying and/or contact guard assistance as patient completes activity. Assistance may be provided throughout the activity or intermittently. 3-Partial/Moderate Assistance-helper does LESS THAN HALF the effort. Abernathy lifts, holds or supports trunk or limbs, but provides less than half the effort. 2-Substantial/Maximal Assistance-helper does MORE THAN HALF the effort. Abernathy lifts or holds trunk or limbs and provides more than half the effort. 2-Nqnlpecod-chesqo does ALL the effort. Patient does none of the effort to comp lete the activity. Or, the assistance of 2 or more helpers is required for the patient to complete the activity. If activity was not attempted, code reason: 7-Patient Refused. 9-Not Applicable-not attempted and the patient did not perform the activity before the current illness, exacerbation or injury. 10-Not Attempted due to Environmental Limitations-(lack of equipment, weather restraints, etc.). 88-Not Attempted due to Medical Conditions or Safety Concerns. Sit to Stand (QC): 4 Toilet Transfer (QC): 4 Weight Bearing Right Lower Extremity: Right Full Weight Bearing Left Lower Extremity: Left Full Weight Bearing Gait Training Does the Patient Walk?: Yes Distance: 2 x 20 ft Walk 10 feet (QC): 4 Gait Persons Needed: 1 Gait Assistive Device: FWW Assessment Current Status: Good Progress Pt. fatigues with ambulation in room but overall steady using FWW. Pt. is improving overall mobility and strength. Pt. returned to bedside chair with call light and all needs met. PT Combination Technician Goals Combination Technician Goals PT Chcf Goals Time Frame: Mar 27, 2022 Roll Left & Right (QC): 4 (SBA) Sit to Lying (QC): 6 Lying-Sitting on Side/Bed(QC): 4 (SBA) Sit to Stand (QC): 4 (SBA) Chair/Qqn-hb-Rrxut Xfer(QC): 4 (SBA) Toilet Transfer (QC): 4 (SBA) Walk 10 feet (QC): 4 (SBA) Walk 50ft with 2 Turns (QC): 4 (CGA) PT Plan Treatment/Plan Treatment Plan: Continue Plan of Care Treatment Plan: Bed Mobility, Education, Functional Activity Rani, Functional Strength, Gait, Safety, Therapeutic Exercise, Transfers Treatment Duration: Mar 27, 2022 Frequency: 6 times per week Estimated Hrs Per Day: .25 hour per day Patient and/or Family Agrees t: Yes Time Time In: 953 Time Out: 1004 DATE: Mar 23, 2022 Total Billed Treatment Time: 10 Total Billed Treatment 1, GT 10' TONJA BENNETT PT Mar 23, 2022 13:26
--- NOTE | 2022-03-23 14:10 | Progress Note - Cardiology ---
Cardiology SOAP Progress Note Subjective: Does not report cp No shortness of breath at rest Gen weakness and malaise are present Diarrhea has improved from watery to soft stool. No n/v No focal weakness No swelling Objective: I&O/Vital Signs 03/23/22 03/23/22 03/23/22 03/23/22 03:46 07:00 08:00 08:23 Temp 36.7 36.5 Pulse 88 82 77 Resp 16 18 B/P (MAP) 132/62 (85) 147/66 (93) Pulse Ox 95 95 96 O2 Delivery Room Air Room Air 03/23/22 03/23/22 03/23/22 09:41 11:31 13:00 Temp 36.1 Pulse 81 89 Resp 16 B/P (MAP) 150/57 (88) Pulse Ox 96 96 O2 Delivery Room Air 03/22/22 23:59 Intake Total 1400 ml Output Total 525 ml Balance 875 ml Constitutional: AAO x 3, well-developed, well-nourished Respiratory: No accessory muscle use, No respiratory distress; chest expansion is symmetric, chest is bilaterally symmetric, lungs clear to auscultation Cardiovascular: regular rate-rhythm; No JVD; S1 and S2 Gastrointestional: No tender; soft, round, audible bowel sounds Extremities: no lower extremity edema bilateral Neurologic/Psychiatric: other (moves all limbs equally) Skin: No rash on exposed areas, No ulcerations on exposed areas Results/Procedures: Labs Laboratory Tests 03/22/22 16:15: Glucometer 102 03/22/22 20:54: Glucometer 128H 03/23/22 05:38: Glucometer 51*L 03/23/22 06:11: White Blood Count 10.1, Red Blood Count 3.81L, Hemoglobin 10.8L, Hematocrit 33L, Mean Corpuscular Volume 87, Mean Corpuscular Hemoglobin 28, Mean Corpuscular Hemoglobin Concent 33, Red Cell Distribution Width 16.3H, Platelet Count 94L, Mean Platelet Volume 11.6, Immature Granulocyte % (Auto) 1, Neutrophils (%) (Auto) 76H, Lymphocytes (%) (Auto) 14, Monocytes (%) (Auto) 7, Eosinophils (%) (Auto) 3, Basophils (%) (Auto) 1, Neutrophils # (Auto) 7.6, Lymphocytes # (Auto) 1.4, Monocytes # (Auto) 0.7, Eosinophils # (Auto) 0.3, Basophils # (Auto) 0.1, Immature Granulocyte # (Auto) 0.1, Percent Immature Platelet Fraction 4.6, Sodium Level 140, Potassium Level 3.8, Chloride Level 112H, Carbon Dioxide Level 19L, Anion Gap 9, Blood Urea Nitrogen 11, Creatinine 0.78, Estimat Glomerular Filtration Rate 88, BUN/Creatinine Ratio 14, Glucose Level 71, Calcium Level 8.4L, Corrected Calcium 9.4, Total Bilirubin 0.7, Aspartate Amino Transf (AST/SGOT) 13, Alanine Aminotransferase (ALT/SGPT) 9, Alkaline Phosphatase 76, Total Protein 5.1L, Albumin 2.8L 03/23/22 06:17: Glucometer 77 03/23/22 10:44: Glucometer 119H Microbiology 03/19/22 C. difficile GDH Antigen & Toxins - Final, Complete 03/19/22 Stool Culture - Final, Complete 03/19/22 Blood Culture - Preliminary, Resulted No growth 03/19/22 Urine Culture - Final, Complete Pseudomonas aeruginosa Laboratory Tests 03/23/22 06:11 A/P: Assessment: Diarrhea - suspected c-diff - being managed by Medical services Poor balance of undetermined etiology - unchanged - following with neurology in [place], [place] Shortness of breath with exertion - chronic and unchanged - Echocardiogram of 06-08-20. LVEF 60-65%. Grade 2 diastolic dysfunction. Mild MR. Mild to mod TR. PASP 50-55mmHg H/o dual ch perm pacemaker ([employer] / [employer]) - implanted for symptomatic bradycardia in Nov [address] Brooks in [place], [place]. - gen change in late August 2020 - device functioning normally per interrogation of 11-07-21 - atrial pacing seen on ECG of 03-19-22 S/p TAVR - (Sep[employer] Bovine Model [id number], Sr no [id number]) on 12/24/19 at [place], [place] H/o SVT and A Fib/Fl - stated to have been treated with ablation in October 2016 at [facility] in [place], [place] - chronic apixaban anticoagulation CAD - H/o cor stents in Mar 2015 at [facility]. - MPI of 01-16-21 No evidence of any significant myocardial ischemia or infarction on this study. Normal regional wall motion. Normal global left ventricular systolic function with a calculated ejection fraction of 71%. COPD - managed by PCP DM II - managed by PCP Obesity - with BMI approx 38.5 and obesity-hypoventilation and MONISHA Medication Allergies - (per pt report): Anaphylaxis for penicillin and phenergan - bronchospasm with sotalol and rozarem Opthamology - H/o bilateral cataract surgery and lens implants L-sided, dry, macular degen Mild hearing loss - unchanged Carotid dz - There appears to be considerable plaque and moderate stenosis of the R common carotid and mild to moderate stenosis of the R internal carotid. Approximately 50% L internal carotid artery stenosis per u/s of Feb 23, 2020 - Carotid u/s of 07-03-21 shows approx 60-79% L ICA and approx 50% R ICA stenosis Leg discomfort - Segmentals pressure of Feb 23, 2020 showed no evidence of any signif blood flow impairment to the distal arterial circulation of the lower limbs. Prox atherosclerosis is suggested. - No c/o claudication Plan: Cardiac status clinically stable Monitor labs from time to time Outpt f/u advised MERCEDES VAZQUEZ MD FACP FAC CCDS Mar 23, 2022 14:10
[2022-03-23 16:00] VITALS: BP 144/70
[2022-03-23] MEDS: TAMSULOSIN 0.4 MG (FLOMAX) CAP PO SCH (17:36)
[2022-03-23] MEDS: LATANOPROST 0.005% (XALATAN) OPHTH SOLN 2.5 ML OU SCH (19:38)
[2022-03-23] MEDS: [UNRECOGNIZED DRUG - REMARK] IH SCH (19:39)
[2022-03-23 19:42] VITALS: BP 152/69
[2022-03-24] VITALS (7 sets, daily range): BP systolic 121–159; BP diastolic 63–90
[2022-03-24 05:55] LABS: HEMOGLOBIN 11.5 g/dL (13.3-17.7); NEUTROPHILS % (AUTO) 80 % (42-75)
[2022-03-24 05:56] LABS: BASOPHILS # (AUTO) 0.1 10^3/uL (0.0-0.1); BASOPHILS % (AUTO) 1 % (0-10); EOSINOPHILS # (AUTO) 0.1 10^3/uL (0.0-0.3); EOSINOPHILS % (AUTO) 1 % (0-10); HEMATOCRIT 35 % (40-54); LYMPHOCYTES # (AUTO) 1.3 10^3/uL (1.0-4.0); LYMPHOCYTES % (AUTO) 12 % (12-44); MEAN CORPUSCULAR HEMOGLOBIN 29 pg (25-34); MEAN CORPUSCULAR HGB CONC 33 g/dL (32-36); MEAN CORPUSCULAR VOLUME 87 fL (80-99); MEAN PLATELET VOLUME 11.1 fL (9.0-12.2); MONOCYTES # (AUTO) 0.6 10^3/uL (0.0-1.0); MONOCYTES % (AUTO) 6 % (0-12); NEUTROPHILS # (AUTO) 8.5 10^3/uL (1.8-7.8); PLATELET COUNT 110 10^3/uL (130-400); WHITE BLOOD COUNT 10.6 10^3/uL (4.3-11.0)
--- NOTE | 2022-03-24 06:05 | Progress Note - Hospitalist ---
Subjective HPI/CC On Admission Date Seen by Provider: Mar 24, 2022 Time Seen by Provider: 11:00 Subjective/Events-last exam Patient doing much better Walking to the bathroom and doing pretty well Will need home health with PT and OT discharge tomorrow No diarrhea stools Review of Systems General: Fatigue, Malaise Objective Exam Vital Signs Vital Signs Date Time Temp Pulse Resp B/P (MAP) Pulse Ox O2 Delivery O2 Flow Rate FiO2 03/24/22 13:00 81 03/24/22 11:44 20 159/73 (101) 96 Room Air 03/24/22 08:07 36.8 03/23/22 18:33 21 Capillary Refill : Less Than 3 Seconds General Appearance: No Apparent Distress, WD/WN, Chronically ill Respiratory: Lungs Clear, Normal Breath Sounds Cardiovascular: Regular Rate, Rhythm Results/Procedures Lab Laboratory Tests 03/24/22 05:30 Patient resulted labs reviewed. 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
[2022-03-24 06:19] LABS: BILIRUBIN,TOTAL 0.6 MG/DL (0.1-1.0); CALCIUM 8.7 MG/DL (8.5-10.1); CREATININE SERUM 0.82 MG/DL (0.60-1.30); TOTAL PROTEIN 5.2 GM/DL (6.4-8.2)
[2022-03-24] MEDS: APIXABAN 5 MG (ELIQUIS) TABLET PO SCH ×2 (09:00→19:54)
[2022-03-24] MEDS: SERTRALINE 50 MG (ZOLOFT) TABLET PO SCH (09:01)
[2022-03-24] MEDS: LOSARTAN 25 MG (COZAAR) TAB PO SCH (09:01)
[2022-03-24] MEDS: ASPIRIN 81 MG CHEW (CHILDREN'S ASA) PO SCH (09:01)
[2022-03-24] MEDS: VANCOMYCIN 125 MG CAPSULE PO SCH ×4 (09:02→19:54)
[2022-03-24] MEDS: TERBINAFINE 1% CREAM 1 OZ (LamISIL) TUBE TP SCH ×2 (09:03→19:55)
[2022-03-24] MEDS: [UNRECOGNIZED DRUG - REMARK] SQ SCH (09:04)
--- NOTE | 2022-03-24 15:27 | Progress Note - Cardiology ---
Cardiology SOAP Progress Note Subjective: No cp or palp or syncope or shortness of breath Gen weakness and malaise much improved No n/v/d No swelling Objective: I&O/Vital Signs 03/24/22 03/24/22 03/24/22 03/24/22 03:28 07:00 08:07 09:00 Temp 36.6 36.8 Pulse 76 70 70 Resp 16 20 B/P (MAP) 121/66 (84) 129/63 (85) Pulse Ox 96 97 O2 Delivery Room Air Room Air Room Air 03/24/22 03/24/22 11:44 13:00 Pulse 71 81 Resp 20 B/P (MAP) 159/73 (101) Pulse Ox 96 O2 Delivery Room Air 03/24/22 00:00 Intake Total 1820 ml Output Total 1400 ml Balance 420 ml Constitutional: AAO x 3, well-developed, well-nourished Respiratory: No accessory muscle use, No respiratory distress; chest expansion is symmetric, chest is bilaterally symmetric, lungs clear to auscultation Cardiovascular: regular rate-rhythm; No JVD; S1 and S2 Gastrointestional: No tender; soft, round, audible bowel sounds Extremities: no lower extremity edema bilateral Neurologic/Psychiatric: other (moves all limbs equally) Skin: No rash on exposed areas, No ulcerations on exposed areas Results/Procedures: Labs Laboratory Tests 03/23/22 16:08: Glucometer 102 03/23/22 20:10: Glucometer 85 03/24/22 05:22: Glucometer 54*L 03/24/22 05:30: White Blood Count 10.6, Red Blood Count 4.02L, Hemoglobin 11.5L, Hematocrit 35L, Mean Corpuscular Volume 87, Mean Corpuscular Hemoglobin 29, Mean Corpuscular Hemoglobin Concent 33, Red Cell Distribution Width 15.9H, Platelet Count 110L, Mean Platelet Volume 11.1, Immature Granulocyte % (Auto) 1, Neutrophils (%) (A uto) 80H, Lymphocytes (%) (Auto) 12, Monocytes (%) (Auto) 6, Eosinophils (%) (Auto) 1, Basophils (%) (Auto) 1, Neutrophils # (Auto) 8.5H, Lymphocytes # (Auto) 1.3, Monocytes # (Auto) 0.6, Eosinophils # (Auto) 0.1, Basophils # (Auto) 0.1, Immature Granulocyte # (Auto) 0.1, Percent Immature Platelet Fraction 5.0, Sodium Level 140, Potassium Level 4.0, Chloride Level 111H, Carbon Dioxide Level 19L, Anion Gap 10, Blood Urea Nitrogen 14, Creatinine 0.82, Estimat Glomerular Filtration Rate 87, BUN/Creatinine Ratio 17, Glucose Level 55*L, Calcium Level 8.7, Corrected Calcium 9.5, Total Bilirubin 0.6, Aspartate Amino Transf (AST/SGOT) 15, Alanine Aminotransferase (ALT/SGPT) 10, Alkaline Phosphatase 80, Total Protein 5.2L, Albumin 3.0L 03/24/22 06:02: Glucometer 83 03/24/22 10:47: Glucometer 96 Microbiology 03/19/22 C. difficile GDH Antigen & Toxins - Final, Complete 03/19/22 Stool Culture - Final, Complete 03/19/22 Blood Culture - Preliminary, Resulted No growth 03/19/22 Urine Culture - Final, Complete Pseudomonas aeruginosa Laboratory Tests 03/23/22 06:11 03/24/22 05:30 A/P: Assessment: Diarrhea - suspected c-diff - being managed by Medical services Poor balance of undetermined etiology - unchanged - following with neurology in [place], [place] Shortness of breath with exertion - chronic and unchanged - Echocardiogram of 06-08-20. LVEF 60-65%. Grade 2 diastolic dysfunction. Mild MR. Mild to mod TR. PASP 50-55mmHg H/o dual ch perm pacemaker ([employer] / [employer]) - implanted for symptomatic bradycardia in Nov [address] Brooks in [place], [place]. - gen change in late August 2020 - device functioning normally per interrogation of 11-07-21 - atrial pacing seen on ECG of 03-19-22 S/p TAVR - (Sep[employer] Bovine Model [id number], Sr no [id number]) on 12/24/19 at [place], [place] H/o SVT and A Fib/Fl - stated to have been treated with ablation in October 2016 at [facility] in [place], [place] - chronic apixaban anticoagulation CAD - H/o cor stents in Mar 2015 at [facility]. - MPI of 01-16-21 No evidence of any significant myocardial ischemia or infarction on this study. Normal regional wall motion. Normal global left ventricular systolic function with a calculated ejection fraction of 71%. COPD - managed by PCP DM II - managed by PCP Obesity - with BMI approx 38.5 and obesity-hypoventilation and MONISHA Medication Allergies - (per pt report): Anaphylaxis for penicillin and phenergan - bronchospasm with sotalol and rozarem Opthamology - H/o bilateral cataract surgery and lens implants L-sided, dry, macular degen Mild hearing loss - unchanged Carotid dz - There appears to be considerable plaque and moderate stenosis of the R common carotid and mild to moderate stenosis of the R internal carotid. Approximately 50% L internal carotid artery stenosis per u/s of Feb 23, 2020 - Carotid u/s of 07-03-21 shows approx 60-79% L ICA and approx 50% R ICA stenosis Leg discomfort - Segmentals pressure of Feb 23, 2020 showed no evidence of any signif blood flow impairment to the distal arterial circulation of the lower limbs. Prox atherosclerosis is suggested. - No c/o claudication Plan: Cardiac status clinically stable Monitor labs from time to time Outpt f/u advised MERCEDES VAZQUEZ MD FACP FAC CCDS Mar 24, 2022 15:27
[2022-03-24] MEDS: TAMSULOSIN 0.4 MG (FLOMAX) CAP PO SCH (17:00)
[2022-03-24] MEDS: [UNRECOGNIZED DRUG - REMARK] IH SCH (19:55)
[2022-03-24] MEDS: LATANOPROST 0.005% (XALATAN) OPHTH SOLN 2.5 ML OU SCH (19:55)
[2022-03-25 00:07] VITALS: BP 121/57
[2022-03-25 03:20] VITALS: BP 140/65
[2022-03-25 06:39] LABS: BASOPHILS # (AUTO) 0.1 10^3/uL (0.0-0.1); BASOPHILS % (AUTO) 1 % (0-10); HEMATOCRIT 34 % (40-54); HEMOGLOBIN 11.1 g/dL (13.3-17.7); MEAN CORPUSCULAR HEMOGLOBIN 28 pg (25-34); MEAN CORPUSCULAR HGB CONC 33 g/dL (32-36); MEAN CORPUSCULAR VOLUME 87 fL (80-99); NEUTROPHILS % (AUTO) 72 % (42-75)
[2022-03-25 06:42] LABS: EOSINOPHILS # (AUTO) 0.3 10^3/uL (0.0-0.3); EOSINOPHILS % (AUTO) 3 % (0-10); LYMPHOCYTES # (AUTO) 1.6 10^3/uL (1.0-4.0); LYMPHOCYTES % (AUTO) 18 % (12-44); MEAN PLATELET VOLUME 11.3 fL (9.0-12.2); MONOCYTES # (AUTO) 0.5 10^3/uL (0.0-1.0); MONOCYTES % (AUTO) 6 % (0-12); NEUTROPHILS # (AUTO) 6.2 10^3/uL (1.8-7.8); PLATELET COUNT 107 10^3/uL (130-400); WHITE BLOOD COUNT 8.6 10^3/uL (4.3-11.0)
[2022-03-25 07:12] LABS: ALBUMIN 2.9 GM/DL (3.2-4.5); BILIRUBIN,TOTAL 0.5 MG/DL (0.1-1.0); CALCIUM 8.8 MG/DL (8.5-10.1); CREATININE SERUM 0.81 MG/DL (0.60-1.30); TOTAL PROTEIN 5.2 GM/DL (6.4-8.2)
[2022-03-25 08:59] VITALS: BP 135/64
[2022-03-25] MEDS: SERTRALINE 50 MG (ZOLOFT) TABLET PO SCH (09:39)
[2022-03-25] MEDS: ASPIRIN 81 MG CHEW (CHILDREN'S ASA) PO SCH (09:39)
[2022-03-25] MEDS: APIXABAN 5 MG (ELIQUIS) TABLET PO SCH (09:39)
[2022-03-25] MEDS: LOSARTAN 25 MG (COZAAR) TAB PO SCH (09:39)
[2022-03-25] MEDS: VANCOMYCIN 125 MG CAPSULE PO SCH (09:40)
[2022-03-25] MEDS: TERBINAFINE 1% CREAM 1 OZ (LamISIL) TUBE TP SCH (09:40)
--- NOTE | 2022-03-25 09:48 | Progress Note - Cardiology ---
Cardiology SOAP Progress Note Objective: I&O/Vital Signs 03/25/22 03/25/22 03/25/22 03/25/22 00:07 01:00 03:20 06:59 Temp 36.5 36.6 Pulse 71 70 72 71 Resp 16 18 B/P (MAP) 121/57 (78) 140/65 (90) Pulse Ox 97 97 O2 Delivery Room Air Room Air 03/25/22 03/25/22 03/25/22 07:03 07:45 08:59 Temp 36.1 Pulse 71 77 99 Resp 18 B/P (MAP) 135/64 (87) Pulse Ox 98 O2 Delivery Room Air 03/24/22 23:59 Intake Total 2615 ml Output Total 300 ml Balance 2315 ml Constitutional: AAO x 3, well-developed, well-nourished Respiratory: No accessory muscle use, No respiratory distress; chest expansion is symmetric, chest is bilaterally symmetric, lungs clear to auscultation Cardiovascular: regular rate-rhythm; No JVD; S1 and S2 Gastrointestional: No tender; soft, round, audible bowel sounds Extremities: no lower extremity edema bilateral Neurologic/Psychiatric: other (moves all limbs equally) Skin: No rash on exposed areas, No ulcerations on exposed areas Results/Procedures: Labs Laboratory Tests 03/24/22 10:47: Glucometer 96 03/24/22 15:48: Glucometer 91 03/24/22 19:52: Glucometer 136H 03/24/22 20:33: Glucometer 104 03/25/22 05:58: White Blood Count 8.6, Red Blood Count 3.94L, Hemoglobin 11.1L, Hematocrit 34L, Mean Corpuscular Volume 87, Mean Corpuscular Hemoglobin 28, Mean Corpuscular Hemoglobin Concent 33, Red Cell Distribution Width 15.8H, Platelet Count 107L, Mean Platelet Volume 11.3, Immature Granulocyte % (Auto) 1, Neutrophils (%) (Auto) 72, Lymphocytes (%) (Auto) 18, Monocytes (%) (Auto) 6, Eosinophils (%) (Auto) 3, Basophils (%) (Auto) 1, Neutrophils # (Auto) 6.2, Lymphocytes # (Auto) 1.6, Monocytes # (Auto) 0.5, Eosinophils # (Auto) 0.3, Basophils # (Auto) 0.1, Immature Granulocyte # (Auto) 0.1, Percent Immature Platelet Fraction 5.7, Sodium Level 140, Potassium Level 4.0, Chloride Level 110H, Carbon Dioxide Level 21, Anion Gap 9, Blood Urea Nitrogen 20H, Creatinine 0.81, Estimat Glomerular Filtration Rate 87, BUN/Creatinine Ratio 25, Glucose Level 50*L, Glucometer 46*L , Calcium Level 8.8, Corrected Calcium 9.7, Total Bilirubin 0.5, Aspartate Amino Transf (AST/SGOT) 15, Alanine Aminotransferase (ALT/SGPT) 13, Alkaline Phosphatase 77, Total Protein 5.2L, Albumin 2.9L 03/25/22 06:29: Glucometer 61L Microbiology 03/19/22 C. difficile GDH Antigen & Toxins - Final, Complete 03/19/22 Stool Culture - Final, Complete 03/19/22 Blood Culture - Final, Complete No growth 03/19/22 Urine Culture - Final, Complete Pseudomonas aeruginosa Laboratory Tests 03/24/22 05:30 03/25/22 05:58 A/P: Assessment: Diarrhea - suspected c-diff - being managed by Medical services Poor balance of undetermined etiology - unchanged - following with neurology in [place], [place] Shortness of breath with exertion - chronic and unchanged - Echocardiogram of 06-08-20. LVEF 60-65%. Grade 2 diastolic dysfunction. Mild MR. Mild to mod TR. PASP 50-55mmHg H/o dual ch perm pacemaker ([employer] / [employer]) - implanted for symptomatic bradycardia in Nov [address] Brooks in [place], [place]. - gen change in late August 2020 - device functioning normally per interrogation of 11-07-21 - atrial pacing seen on ECG of 03-19-22 S/p TAVR - (Sep[employer] Model [id number], Sr no [id number]) on 12/24/19 at [place], [place] H/o SVT and A Fib/Fl - stated to have been treated with ablation in October 2016 at [place], [place] - chronic apixaban anticoagulation CAD - H/o cor stents in Mar 2015 at [facility]. - MPI of 01-16-21 No evidence of any significant myocardial ischemia or infarction on this study. Normal regional wall motion. Normal global left vent ricular systolic function with a calculated ejection fraction of 71%. COPD - managed by PCP DM II - managed by PCP Obesity - with BMI approx 38.5 and obesity-hypoventilation and MONISHA Medication Allergies - (per pt report): Anaphylaxis for penicillin and phenergan - bronchospasm with sotalol and rozarem Opthamology - H/o bilateral cataract surgery and lens implants L-sided, dry, macular degen Mild hearing loss - unchanged Carotid dz - There appears to be considerable plaque and moderate stenosis of the R common carotid and mild to moderate stenosis of the R internal carotid. Approximately 50% L internal carotid artery stenosis per u/s of Feb 23, 2020 - Carotid u/s of 07-03-21 shows approx 60-79% L ICA and approx 50% R ICA stenosis Leg discomfort - Segmentals pressure of Feb 23, 2020 showed no evidence of any signif blood flow impairment to the distal arterial circulation of the lower limbs. Prox atherosclerosis is suggested. - No c/o claudication Plan: Cardiac status clinically stable Monitor labs from time to time Outpt f/u advised JAZMIN KERN Mar 25, 2022 09:48
--- NOTE | 2022-03-25 10:10 | Physical Therapy Daily Note ---
PT Daily Note-Current Subjective Patient in recliner pre-tx, reports no pain, agrees to PT. Pain Section J - Health Conditions 1. Rarely or not at all 2. Occasionally 3. Frequently 4. Almost constantly 8. Unable to answer Pain Effect on Sleep: 1 Pain Interference with Therapy: 1 Pain Interference w/Day-to-Day: 1 Appearance Patient in recliner post-tx with nurse call, phone, tray, all needs met. Mental Status Patient Orientation: Person, Place, Situation Transfers SCALE: Activities may be completed with or without assistive devices. 3-Gfqmemyonp-hafcyck completes the activity by him/herself with no assistance from a helper. 5-Set-up or Clean-up Assistance-helper sets up or cleans up; patient completes activity. [place] assists only prior to or following the activity. 4-Supervision or Touching Assistance-helper provides verbal cues and/or touching/steadying and/or contact guard assistance as patient completes activity. Assistance may be provided throughout the activity or intermittently. 3-Partial/Moderate Assistance-helper does LESS THAN HALF the effort. [place] lifts, holds or supports trunk or limbs, but provides less than half the effort. 2-Substantial/Maximal Assistance-helper does MORE THAN HALF the effort. [place] lifts or holds trunk or limbs and provides more than half the effort. 4-Tseuspqnf-fyakus does ALL the effort. Patient does none of the effort to complete the activity. Or, the assistance of 2 or more helpers is required for the patient to complete the activity. If activity was not attempted, code reason: 7-Patient Refused. 9-Not Applicable-not attempted and the patient did not perform the activity before the current illness, exacerbation or injury. 10-Not Attempted due to Environmental Limitations-(lack of equipment, weather restraints, etc.). 88-Not Attempted due to Medical Conditions or Safety Concerns. Sit to Stand (QC): 4 Chair/Zcn-aq-Gtqgc Xfer(QC): 4 CGA Weight Bearing Right Lower Extremity: Right Full Weight Bearing Left Lower Extremity: Left Full Weight Bearing Gait Training Distance: 60' Walk 10 feet (QC): 3 Walk 50 ft with 2 Turns(QC): 3 Gait Assistive Device: FWW patient walks with decreased gait speed, decreased step length, decreased foot clearance. Patient unsteady with ambulation and had a LOB and needed Min A to correct. Exercises Seated Therapy Exercises: Ankle pumps, Long arc quads, Hip flexion Seated Reps: 20 Treatments Ambulation, LE Strengthening Assessment Current Status: Fair Progress Patient unsteady with ambulation and needs verbal cueing to complete exercises. PT Broiler Manager Goals Broiler Manager Goals PT Skilled Nursing Goals Time Frame: Mar 27, 2022 Roll Left & Right (QC): 4 (SBA) Sit to Lying (QC): 6 Lying-Sitting on Side/Bed(QC): 4 (SBA) Sit to Stand (QC): 4 (SBA) Chair/Hci-gy-Cggxh Xfer(QC): 4 (SBA) Toilet Transfer (QC): 4 (SBA) Walk 10 feet (QC): 4 (SBA) Walk 50ft with 2 Turns (QC): 4 (CGA) PT Plan Problem List Problem List: Activity Tolerance, Functional Strength, Safety, Balance, Gait, Transfer, Bed Mobility, ROM Treatment/Plan Treatment Plan: Continue Plan of Care Treatment Plan: Bed Mobility, Education, Functional Activity Rani, Functional Strength, Gait, Safety, Therapeutic Exercise, Transfers Treatment Duration: Mar 27, 2022 Frequency: 6 times per week Estimated Hrs Per Day: .25 hour per day Patient and/or Family Agrees t: Yes Safety Risks/Education Patient Education: Gait Training, Transfer Techniques, Correct Positioning, Safety Issues Teaching Recipient: Patient Teaching Methods: Demonstration, Discussion Response to Teaching: Reinforcement Needed Time Time In: 924 Time Out: 936 DATE: Mar 25, 2022 Total Billed Treatment Time: 12 Total Billed Treatment 1 visit FA KILLIAN REY PT Mar 25, 2022 10:10
[2022-03-25] MEDS ORDERED: CLOT12CR TP (10:41)
[2022-03-25] MEDS ORDERED: VANC125C5 PO (10:41)
[2022-03-25] MEDS ORDERED: INSU200I4 SQ (10:41)
--- NOTE | 2022-03-25 10:42 | Discharge Summary ---
Discharge Summary Hospital Course Was the Problem List Reviewed?: Yes Problems/Dx: (1) Dehydration Status: Acute (2) C. difficile colitis Status: Acute (3) Weakness Status: Acute (4) H/O Clostridium difficile infection Status: Acute (5) IDDM (insulin dependent diabetes mellitus) Status: Acute (6) Diarrhea Status: Acute Qualifiers: Qualified Codes: R19.7 - Diarrhea, unspecified (7) Advanced age (8) CAD (coronary artery disease) Status: Chronic Qualifiers: Qualified Codes: I25.10 - Atherosclerotic heart disease of [place] coronary artery without angina pectoris (9) HTN (hypertension) Status: Acute Qualifiers: Qualified Codes: I10 - Essential (primary) hypertension (10) Afib Status: Chronic Hospital Course Date of Admission: Mar 22, 2022 at 11:15 Admission Diagnosis : [facility]: 03/25/22 Discharge Diagnosis: [ ] Hospital Course: Patient is an 86-year-old male who presented to the ED via EMS on 03/19 with chief complaint of diarrhea and weakness. The patient reported that for several days prior to admission he was having watery diarrhea 5-10x a day and states that he felt progressively weaker. He states that his PCP was going to do C. diff studies but "did not get around to it." The patient has a history of C. diff colitis with his most recent episode in December, which he reports feels almost exactly like his current symptoms. Accucheck by EMS revealed a glucose of 50 for which he was given oral glucose. The patient was started empirically on vancomycin for presumed C. diff colitis. Cardiology was consulted due the patient's history of cardiovascular problems. Initially, the patient was incontinent due to their weakness and by how quickly they felt the urge to defecate. These symptoms improved over the next few days and the patient became continent. Their diarrhea also improved over the course of the stay with the roc amin reporting a formed BM this morning. The patient worked with PT/OT during their stay for their weakness which improved to near his baseline. The patient is being discharged today with home health and will continue to work with PT/OT. YAMILA SANCHEZ Labs and Pending Lab Test: Laboratory Tests 03/24/22 10:47: Glucometer 96 03/24/22 15:48: Glucometer 91 03/24/22 19:52: Glucometer 136H 03/24/22 20:33: Glucometer 104 03/25/22 05:58: White Blood Count 8.6, Red Blood Count 3.94L, Hemoglobin 11.1L, Hematocrit 34L, Mean Corpuscular Volume 87, Mean Corpuscular Hemoglobin 28, Mean Corpuscular Hemoglobin Concent 33, Red Cell Distribution Width 15.8H, Platelet Count 107L, Mean Platelet Volume 11.3, Immature Granulocyte % (Auto) 1, Neutrophils (%) (Auto) 72, Lymphocytes (%) (Auto) 18, Monocytes (%) (Auto) 6, Eosinophils (%) (Auto) 3, Basophils (%) (Auto) 1, Neutrophils # (Auto) 6.2, Lymphocytes # (Auto) 1.6, Monocytes # (Auto) 0.5, Eosinophils # (Auto) 0.3, Basophils # (Auto) 0.1, Immature Granulocyte # (Auto) 0.1, Percent Immature Platelet Fraction 5.7, Sodium Level 140, Potassium Level 4.0, Chloride Level 110H, Carbon Dioxide Level 21, Anion Gap 9, Blood Urea Nitrogen 20H, Creatinine 0.81, Estimat Glomerular Filtration Rate 87, BUN/Creatinine Ratio 25, Glucose Level 50*L, Glucometer 46*L , Calcium Level 8.8, Corrected Calcium 9.7, Total Bilirubin 0.5, Aspartate Amino Transf (AST/SGOT) 15, Alanine Aminotransferase (ALT/SGPT) 13, Alkaline Phosphatase 77, Total Protein 5.2L, Albumin 2.9L 03/25/22 06:29: Glucometer 61L Microbiology 03/19/22 C. difficile GDH Antigen & Toxins - Final, Complete 03/19/22 Stool Culture - Final, Complete 03/19/22 Blood Culture - Final, Complete No growth 03/19/22 Urine Culture - Final, Complete Pseudomonas aeruginosa Home Meds Active Lotrimin AF (Clotrimazole) 1 % Cream..g. 12 Gm TP BID Vancomycin HCl 125 Mg Capsule 125 Mg PO QID 1 pill four times daily for 7 days then three times daily for 7 days then twice daily for 7 days then 1 daily for 7 days Tresiba Flextouch U-200 (Insulin Degludec) 200 Unit/Ml (3 Ml) Insuln.pen 40 Units SQ DAILY 7 Days talk to family doctor about dosing after blood sugars are no longer low Famotidine 20 Mg Tablet 20 Mg PO DAILY Reported Insulin Aspart Flexpen (Insulin Aspart) 100 Unit/Ml (3 Ml) Insuln.pen Unit SQ AC PRN USES NEEDED PER SLIDING SCALE: 0-149=0 UNITS 150-199=2 UNITS 200-249=4 UNITS 250-349=7 UNITS 350 AND ABOVE=10 UNITS Metoprolol Tartrate 50 Mg Tablet 25 Mg PO BID TAKES OF A 50MG TAB Gvoke Hypopen (Glucagon) 0.5 Mg/0.1 Ml Auto.injct 0.5 Mg SQ UD PRN Potassium Chloride 8 Meq Capsule.er 16 Meq PO DAILY TAKES 2 (8MEQ) TABS Sertraline HCl 50 Mg Tablet 75 Mg PO 1800 TAKES 1 AND 1/2 OF (50MG) TAB Latanoprost 0.005% Eye Drop (Latanoprost/Pf) 0.005 % Drops 1 Drop OU HS Flomax (Tamsulosin HCl) 0.4 Mg Cap 0.4 Mg PO BID Ozempic (Semaglutide) 1 Mg/0.75 Ml (4 Mg/3 Ml) Pen.injctr 1 Mg SQ FRI Jardiance (Empagliflozin) 25 Mg Tablet 25 Mg PO DAILY Furosemide 20 Mg Tablet 20 Mg PO DAILY Aspirin EC (Aspirin) 81 Mg Tablet.dr 162 Mg PO HS TAKES 2 (81MG) TABS Ventolin Hfa (Albuterol Sulfate) 18 Gm Hfa.aer.ad 2 Puff INH Q4H PRN Nitroglycerin 0.4 Mg Tab.subl 0.4 Mg SL UD PRN Calcium 600 + Vit D3 400 Tab (Calcium Carbonate/Vitamin D3) 1 Each Tablet 1 Each PO DAILY Atorvastatin Calcium 20 Mg Tablet 20 Mg PO HS Losartan Potassium 25 Mg Tablet 12.5 Mg PO DAILY TAKES 1/2 OF (25MG) TAB Eliquis (Apixaban) 5 Mg Tablet 5 Mg PO BID Trelegy Ellipta 100-62.5-25 (Fluticasone/Umeclidin/Vilanter) 1 Each Blst.w.dev 1 Puff INH HS Assessment/Pt Instructions pcp 1 week Discharge Planning: <30 minutes discharge planning Discharge Instructions Discharge Diet: No Restrictions Discharge Physical Examination Vital Signs Vital Signs Date Time Temp Pulse Resp B/P (MAP) Pulse Ox O2 Delivery O2 Flow Rate FiO2 03/25/22 09:57 Room Air 03/25/22 08:59 36.1 99 18 135/64 (87) 98 03/23/22 18:33 21 General Appearance: No Apparent Distress, WD/WN, Chronically ill Allergies: Coded Allergies: Penicillins (Verified Allergy, Severe, Anaphylaxis, 01/15/22) promethazine (Verified Allergy, Severe, Anaphylaxis, 01/15/22) ramelteon (Verified Allergy, Unknown, Shortness of Breath, 02/27/20) "Severe bronchospasm" sotalol (Verified Allergy, Unknown, Shortness of Breath, 02/27/20) "Severe bronchospasm" Discharge Summary Date of Admission Mar 22, 2022 at 11:15 Date of Discharge Discharge Date: Mar 25, 2022 Discharge Diagnosis Assessment: 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
--- NOTE | 2022-03-25 10:42 | D/C HH Face to Face Order ---
D/C Face to Face Orders Reconcile Patient Problems Problems Reviewed?: Yes Instructions for Patient Via [facility], Patient Instructions/FollowUp: PCP 1 week Physician to follow Patient: [facility] Discharge Diet for Home: ADA Diet Patient Problems: C diff recurrent Patient Data-Allergies,Ht & Wt Patient Allergies: Coded Allergies: Penicillins (Verified Allergy, Severe, Anaphylaxis, 01/15/22) promethazine (Verified Allergy, Severe, Anaphylaxis, 01/15/22) ramelteon (Verified Allergy, Unknown, Shortness of Breath, 02/27/20) "Severe bronchospasm" sotalol (Verified Allergy, Unknown, Shortness of Breath, 02/27/20) "Severe bronchospasm" Home Health Need/Face to Face Date of Face to Face: Mar 25, 2022 Clinical Findings: Generalized weakness and fatigue, Instability, Muscle weakness, Unsteady gait I have seen Pt [id number]: Yes Discharged To: Home Diagnosis/Conditions: C diff Debility Patient is Homebound due to: CognItive deficits, Reina fall risk due to instabilty, Muscle weakness Homebound Status Due to the above stated illness, injury or surgical procedure (medical condition or diagnosis) and associated clinical findings, the patient is homebound because of his/her inability to leave home except with aid of a supportive device and/or person AND leaving the home requires a considerable and taxing effort or is medically contraindicated. Pt req the following assistanc: Walker Home Health Nursing Orders Home Health Services Order: Nursing Services, Lottery Office Manager-Evaluate & Treat, Physical Therapy-Evaluate & Treat Home Health Infusion Therapy Line Start Date: Mar 19, 2022 Certify Stmt I certify that this patient is under my care and that I, a nurse practitioner or a physician; a endodontic assistant working with me, had a face to face encounter that - meets the physician face to face encounter requirements with this patient as dated. EDEN FORDE DO Mar 25, 2022 10:42
--- NOTE | 2022-03-25 11:04 | Progress Note ---
YAMILA SANCHEZ 03/25/22 1104: Progress Note Patient is an 86-year-old male who presented to the ED via EMS on 03/19 with chief complaint of diarrhea and weakness. The patient reported that for several days prior to admission he was having watery diarrhea 5-10x a day and states that he felt progressively weaker. He states that his PCP was going to do C. diff studies but "did not get around to it." The patient has a history of C. diff colitis with his most recent episode in December, which he reports feels almost exactly like his current symptoms. Accucheck by EMS revealed a glucose of 50 for which he was given oral glucose. The patient was started empirically on vancomycin for presumed C. diff colitis. Cardiology was consulted due the patient's history of cardiovascular problems. Initially, the patient was incontinent due to their weakness and by how quickly they felt the urge to defecate. These symptoms improved over the next few days and the patient became continent. Their diarrhea also improved over the course of the stay with the patient reporting a formed BM this morning. The patient worked with PT/OT during their stay for their weakness which improved to near his baseline. The patient is being discharged today with home health and will continue to work with PT/OT. RADHA DE DIOS DO 03/26/22 0513: Supervisory-Addendum Brief Verification & Attestation Participated in pt care: history, MDM, physical Personally performed: exam, history, MDM, supervision of care Care discussed with: Medical Student Procedures: n/a Results interpretation: Verified all documentation Verification and Attestation of Medical Student E/M Service A medical student performed and documented this service in my presence. I reviewed and verified all information documented by the medical student and made modifications to such information, when appropriate. I personally performed the physical exam and medical decision making. Radha De Dios Mar 26, 2022,05:13 YAMILA SANCHEZ Mar 25, 2022 11:04 RADHA DE DIOS DO Mar 26, 2022 05:13
[2022-03-25 11:46] VITALS: BP 139/64
[2022-03-25 12:26] VITALS: BP 139/64
--- NOTE | 2022-03-25 12:53 | Progress Note - Cardiology ---
Cardiology SOAP Progress Note Subjective: No cp or palp or syncope No shortness of breath No n/v/d Objective: I&O/Vital Signs 03/25/22 03/25/22 03/25/22 03/25/22 01:00 03:20 06:59 07:03 Temp 36.6 Pulse 70 72 71 71 Resp 18 B/P (MAP) 140/65 (90) Pulse Ox 97 O2 Delivery Room Air 03/25/22 03/25/22 03/25/22 03/25/22 07:45 08:59 09:57 11:46 Temp 36.1 36.3 Pulse 77 99 77 Resp 18 18 B/P (MAP) 135/64 (87) 139/64 (89) Pulse Ox 98 96 O2 Delivery Room Air Room Air Room Air 03/25/22 00:00 Intake Total 2615 ml Output Total 300 ml Balance 2315 ml Constitutional: AAO x 3, well-developed, well-nourished Respiratory: No accessory muscle use, No respiratory distress; chest expansion is symmetric, chest is bilaterally symmetric, lungs clear to auscultation Cardiovascular: regular rate-rhythm; No JVD; S1 and S2 Gastrointestional: No tender; soft, round, audible bowel sounds Extremities: no lower extremity edema bilateral Neurologic/Psychiatric: other (moves all limbs equally) Skin: No rash on exposed areas, No ulcerations on exposed areas Results/Procedures: Labs Laboratory Tests 03/24/22 15:48: Glucometer 91 03/24/22 19:52: Glucometer 136H 03/24/22 20:33: Glucometer 104 03/25/22 05:58: Glucometer 46*L, White Blood Count 8.6, Red Blood Count 3.94L, Hemoglobin 11.1L, Hematocrit 34L, Mean Corpuscular Volume 87, Mean Corpuscular Hemoglobin 28, Mean Corpuscular Hemoglobin Concent 33, Red Cell Distribution Width 15.8H, Platelet Count 107L, Mean Platelet Volume 11.3, Immature Granulocyte % (Auto) 1, Neutrophils (%) (Auto) 72, Lymphocytes (%) (Auto) 18, Monocytes (%) (Auto) 6, Eosinophils (%) (Auto) 3, Basophils (%) (Auto) 1, Neutrophils # (Auto) 6.2, Lymphocytes # (Auto) 1.6, Monocytes # (Auto) 0.5, Eosinophils # (Auto) 0.3, Basophils # (Auto) 0.1, Immature Granulocyte # (Auto) 0.1, Percent Immature Platelet Fraction 5.7, Sodium Level 140, Potassium Level 4.0, Chloride Level 110H, Carbon Dioxide Level 21, Anion Gap 9, Blood Urea Nitrogen 20H, Creatinine 0.81, Estimat Glomerular Filtration Rate 87, BUN/Creatinine Ratio 25, Glucose Level 50*L, Calcium Level 8.8, Corrected Calcium 9.7, Total Bilirubin 0.5, Aspartate Amino Transf (AST/SGOT) 15, Alanine Aminotransferase (ALT/SGPT) 13, Alkaline Phosphatase 77, Total Protein 5.2L, Albumin 2.9L 03/25/22 06:29: Glucometer 61L 03/25/22 11:14: Glucometer 119H Microbiology 03/19/22 C. difficile GDH Antigen & Toxins - Final, Complete 03/19/22 Stool Culture - Final, Complete 03/19/22 Blood Culture - Final, Complete No growth 03/19/22 Urine Culture - Final, Complete Pseudomonas aeruginosa Laboratory Tests 03/24/22 05:30 03/25/22 05:58 A/P: Assessment: Diarrhea - suspected c-diff - being managed by Medical services Poor balance of undetermined etiology - unchanged - following with neurology in [place], [place] Shortness of breath with exertion - chronic and unchanged - Echocardiogram of 06-08-20. LVEF 60-65%. Grade 2 diastolic dysfunction. Mild MR. Mild to mod TR. PASP 50-55mmHg H/o dual ch perm pacemaker ([employer] / [employer]) - implanted for symptomatic bradycardia in Nov [address] Brooks in [place], [place]. - gen change in late August 2020 - device functioning normally per interrogation of 11-07-21 - atrial pacing seen on ECG of 03-19-22 S/p TAVR - ([employer] Model [id number], Sr no [id number]) on 12/24/19 at [place], [place] H/o SVT and A Fib/Fl - stated to have been treated with ablation in October 2016 at [facility] in [place], [place] - chronic apixaban anticoagulation CAD - H/o cor stents in Mar 2015 at [facility]. - MPI of 01-16-21 No evidence of any significant myocardial ischemia or infarc tion on this study. Normal regional wall motion. Normal global left ventricular systolic function with a calculated ejection fraction of 71%. COPD - managed by PCP DM II - managed by PCP Obesity - with BMI approx 38.5 and obesity-hypoventilation and MONISHA Medication Allergies - (per pt report): Anaphylaxis for penicillin and phenergan - bronchospasm with sotalol and rozarem Opthamology - H/o bilateral cataract surgery and lens implants L-sided, dry, macular degen Mild hearing loss - unchanged Carotid dz - There appears to be considerable plaque and moderate stenosis of the R common carotid and mild to moderate stenosis of the R internal carotid. Approximately 50% L internal carotid artery stenosis per u/s of Feb 23, 2020 - Carotid u/s of 07-03-21 shows approx 60-79% L ICA and approx 50% R ICA stenosis Leg discomfort - Segmentals pressure of Feb 23, 2020 showed no evidence of any signif blood flow impairment to the distal arterial circulation of the lower limbs. Prox atherosclerosis is suggested. - No c/o claudication Plan: Cardiac status clinically stable Outpt f/u advised MERCEDES VAZQUEZ MD FACP FAC CCDS Mar 25, 2022 12:53
== END 2022-03-25 12:26 | disposition home health service (06) | DRG 372 ==
LOC: EDUNIT# 05:10 → ER 05:11 → 4TH 06:28 → OBSVTOIN 03-22 11:15
PROVIDERS: ADMIT Family Medicine; ATTEND Internal Medicine
DX: A04.72 Enterocolitis due to Clostridium difficile, not specified as recurrent (principal); I48.20 Chronic atrial fibrillation, unspecified; E86.0 Dehydration; R53.1 Weakness; E11.9 Type 2 diabetes mellitus without complications; I25.10 Atherosclerotic heart disease of native coronary artery without angina pectoris; I10 Essential (primary) hypertension; B96.5 Pseudomonas (aeruginosa) (mallei) (pseudomallei) as the cause of diseases classified elsewhere; Z79.01 Long term (current) use of anticoagulants; Z95.0 Presence of cardiac pacemaker; E78.5 Hyperlipidemia, unspecified; Z79.82 Long term (current) use of aspirin; Z79.4 Long term (current) use of insulin; Z66 Do not resuscitate; Z79.899 Other long term (current) drug therapy; Z95.5 Presence of coronary angioplasty implant and graft; Z95.2 Presence of prosthetic heart valve; J44.9 Chronic obstructive pulmonary disease, unspecified; I25.2 Old myocardial infarction; E78.00 Pure hypercholesterolemia, unspecified; E11.40 Type 2 diabetes mellitus with diabetic neuropathy, unspecified; M19.90 Unspecified osteoarthritis, unspecified site; E66.9 Obesity, unspecified; H35.30 Unspecified macular degeneration; H91.90 Unspecified hearing loss, unspecified ear; I77.9 Disorder of arteries and arterioles, unspecified; Z88.0 Allergy status to penicillin; Z68.38 Body mass index [BMI] 38.0-38.9, adult; R06.02 Shortness of breath
CPT/HCPCS: 36415; 51702; 71045; 80048; 80053; 81000; 82947; 83605; 83735; 84145; 85025; 85610; 85652; 85730; 86141; 87015; 87040; 87045; 87046; 87077; 87088; 87184; 87324; 87449; 87899; 93005; 93041; 94640; 94760; G0378

== ENCOUNTER 2022-04-29 16:41 | Emergency (ER) | payer MEDICARE, MEDICAID ==
[~2022-04-29] VITALS: Ht 182.8 cm; Wt 108.8 kg
[~2022-04-29 16:41] MED LIST changes: -CEPH500T PO
[2022-04-29] MEDS ORDERED: NS IV 1000 ML 1,000 ML IV SCH (17:30)
[2022-04-29 17:33] LABS: BASOPHILS # (AUTO) 0.1 10^3/uL (0.0-0.1); BASOPHILS % (AUTO) 1 % (0-10); HEMATOCRIT 43 % (40-54)
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
[2022-04-29 17:35] LABS: EOSINOPHILS # (AUTO) 0.3 10^3/uL (0.0-0.3); EOSINOPHILS % (AUTO) 2 % (0-10); HEMOGLOBIN 13.7 g/dL (13.3-17.7); LYMPHOCYTES # (AUTO) 1.9 10^3/uL (1.0-4.0); LYMPHOCYTES % (AUTO) 15 % (12-44); MEAN CORPUSCULAR HEMOGLOBIN 28 pg (25-34); MEAN CORPUSCULAR HGB CONC 32 g/dL (32-36); MEAN CORPUSCULAR VOLUME 88 fL (80-99); MONOCYTES # (AUTO) 0.6 10^3/uL (0.0-1.0); MONOCYTES % (AUTO) 5 % (0-12); NEUTROPHILS # (AUTO) 9.8 10^3/uL (1.8-7.8); NEUTROPHILS % (AUTO) 77 % (42-75); PLATELET COUNT 113 10^3/uL (130-400); WHITE BLOOD COUNT 12.7 10^3/uL (4.3-11.0)
[2022-04-29 17:45] LABS: ALBUMIN 3.7 GM/DL (3.2-4.5)
[2022-04-29 17:46] LABS: INR 1.6 (0.8-1.4); PROTHROMBIN TIME PATIENT 19.7 SEC (12.2-14.7)
[2022-04-29 17:47] LABS: CALCIUM 9.5 MG/DL (8.5-10.1)
[2022-04-29 17:48] LABS: TOTAL PROTEIN 6.3 GM/DL (6.4-8.2)
[2022-04-29 17:49] LABS: BILIRUBIN,URINE NEGATIVE (NEGATIVE); CLARITY,URINE CLEAR; COLOR,URINE YELLOW; GLUCOSE, URINE (UA) 3+ (NEGATIVE); KETONES,URINE NEGATIVE (NEGATIVE); LEUKOCYTE ESTERASE ,URINE TRACE (NEGATIVE); NITRITE,URINE POSITIVE (NEGATIVE); PH,URINE 5.5 (5-9); PROTEIN,URINE NEGATIVE (NEGATIVE)
[2022-04-29 17:50] LABS: BILIRUBIN,TOTAL 0.8 MG/DL (0.1-1.0)
[2022-04-29 17:51] LABS: CREATININE SERUM 1.43 MG/DL (0.60-1.30)
[2022-04-29 18:06] LABS: BACTERIA,URINE FEW /HPF; SQUAMOUS EPITHELIAL CELL,UR RARE /HPF; WBC,URINE 0-2 /HPF
[2022-04-29] MEDS ORDERED: CEPHALEXIN 250 MG (KEFLEX) CAP PO STA ×2 (18:28→18:32)
[2022-04-29] MEDS ORDERED: CEPH500T PO (18:31)
[2022-04-29 19:11] VITALS: BP 101/50
== END 2022-04-29 19:12 | disposition home or self-care (01) ==
LOC: EDUNIT# 16:41 → ER 16:43
DX: N39.0 Urinary tract infection, site not specified (principal); R19.7 Diarrhea, unspecified; G47.30 Sleep apnea, unspecified; E66.9 Obesity, unspecified; Z68.32 Body mass index [BMI] 32.0-32.9, adult; Z88.0 Allergy status to penicillin; Z99.89 Dependence on other enabling machines and devices
CPT/HCPCS: 36415; 80053; 81000; 85025; 85610; 85730; 86141; 87077; 87088; 99283

== ENCOUNTER → 2022-04-29 | Outpatient (CLI) | payer MEDICARE, MEDICAID ==
[~2022-04-29] MED LIST changes: +CEPH500T PO; +CLOT12CR TP; +INSU100I55 SQ
== END ==
LOC: LABNPT 10:34
PROVIDERS: ATTEND Nurse Practitioner
DX: Z01.89 Encounter for other specified special examinations (principal)
CPT/HCPCS: 87015; 87045; 87046; 87324; 87449; 87899

== ENCOUNTER 2022-06-21 14:18 | Emergency (ER) | payer MEDICARE, MEDICAID ==
[~2022-06-21] VITALS: Ht 185 cm; Wt 106.0 kg
[~2022-06-21 14:18] MED LIST changes: +CEPH500T PO
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
[2022-06-21 14:53] LABS: EOSINOPHILS # (AUTO) 0.3 10^3/uL (0.0-0.3)
[2022-06-21 14:55] LABS: BASOPHILS # (AUTO) 0.1 10^3/uL (0.0-0.1); BASOPHILS % (AUTO) 1 % (0-10); EOSINOPHILS % (AUTO) 3 % (0-10); HEMATOCRIT 44 % (40-54); LYMPHOCYTES # (AUTO) 1.7 10^3/uL (1.0-4.0); LYMPHOCYTES % (AUTO) 18 % (12-44); MEAN CORPUSCULAR HEMOGLOBIN 28 pg (25-34); MEAN CORPUSCULAR HGB CONC 32 g/dL (32-36); MEAN CORPUSCULAR VOLUME 89 fL (80-99); MONOCYTES # (AUTO) 0.6 10^3/uL (0.0-1.0); MONOCYTES % (AUTO) 6 % (0-12); NEUTROPHILS % (AUTO) 72 % (42-75); PLATELET COUNT 105 10^3/uL (130-400); WHITE BLOOD COUNT 9.6 10^3/uL (4.3-11.0)
[2022-06-21 15:04] LABS: ALBUMIN 3.5 GM/DL (3.2-4.5); BILIRUBIN,TOTAL 0.7 MG/DL (0.1-1.0); CALCIUM 9.3 MG/DL (8.5-10.1); CREATININE SERUM 1.12 MG/DL (0.60-1.30); MAGNESIUM 2.2 MG/DL (1.6-2.4); POTASSIUM 4.1 MMOL/L (3.6-5.0); TOTAL PROTEIN 6.1 GM/DL (6.4-8.2)
--- NOTE | 2022-06-21 15:10 | Diagnostic Imaging Report ---
. CT HEAD WO Date: 06/21/2022 3:06 PM Clinical Indication: confusion/off balance Comparison: CT of the head on 10/10/2021. Technique: 5 mm axial tomographic images were obtained of the head without contrast. These were viewed on brain and bone windows. One or more of the following dose reduction techniques were utilized: Automated exposure control (AEC), Adjustment of mA and/or kV according to patient size, Use of iterative reconstruction technique such as ASiR, CT scan done according to ALARA and image gently/image wisely Findings: Mild generalized cerebral and cerebellar volume loss. Moderate nonspecific periventricular hypoattenuation, most commonly seen with chronic small vessel ischemic disease. Calcified atherosclerosis of the bilateral cavernous and paraclinoid internal carotid arteries and intracranial vertebral arteries. No intra- or extra-axial mass or fluid collection. No acute hemorrhage. The ventricles are normal in size, shape, and morphology. The mccoy-white matter junction is normal. The subarachnoid cisterns are patent. The visualized paranasal sinuses are normal. The visualized portions of the orbits and globes are normal. The mastoid air cells are clear. The excelsior machine tender topogram shows no lytic lesion or fracture. Impression: No acute intracranial process. Mild cerebral volume loss. Moderate chronic small vessel ischemic disease. Dictated by: Dictated on workstation # [id number]
[2022-06-21 15:28] LABS: BILIRUBIN,URINE NEGATIVE (NEGATIVE); CLARITY,URINE SL CLOUDY; COLOR,URINE YELLOW; GLUCOSE, URINE (UA) NEGATIVE (NEGATIVE); KETONES,URINE NEGATIVE (NEGATIVE); LEUKOCYTE ESTERASE ,URINE NEGATIVE (NEGATIVE); NITRITE,URINE NEGATIVE (NEGATIVE); PH,URINE 5.5 (5-9); PROTEIN,URINE NEGATIVE (NEGATIVE)
[2022-06-21 15:40] LABS: BACTERIA,URINE NEGATIVE /HPF; CALCIUM OXALATE CRYSTALS,UR MODERATE /LPF; SQUAMOUS EPITHELIAL CELL,UR 0-2 /HPF
[2022-06-21 16:15] VITALS: BP 137/70
== END 2022-06-21 16:20 | disposition home or self-care (01) ==
LOC: EDUNIT# 14:18 → ER 14:22
DX: R41.0 Disorientation, unspecified (principal); E66.9 Obesity, unspecified; G47.30 Sleep apnea, unspecified; Z68.30 Body mass index [BMI] 30.0-30.9, adult; Z99.89 Dependence on other enabling machines and devices
CPT/HCPCS: 36415; 70450; 80053; 81000; 82140; 83735; 84443; 85025

== ENCOUNTER → 2022-07-23 | Outpatient (CLI) | payer MEDICARE, MEDICAID | LOC: CARD 10:02 | PROVIDERS: ATTEND Internal Medicine Cardiovascular Disease | DX: I08.0 Rheumatic disorders of both mitral and aortic valves (principal); I25.10 Atherosclerotic heart disease of native coronary artery without angina pectoris | CPT/HCPCS: 93306 ==

== ENCOUNTER 2022-08-26 00:37 | Inpatient (IN) | payer MEDICARE, MEDICAID ==
[2022-08-26] VITALS (11 sets, daily range): BP systolic 115–166; BP diastolic 57–106
[~2022-08-26] VITALS: Ht 185.5 cm; Wt 102.8 kg
[~2022-08-26 00:37] MED LIST changes: -INSU100I29 SQ; +INSU100I30 SQ
[2022-08-26] MEDS ORDERED: NS IV 1000 ML 1,000 ML IV SCH (00:45)
[2022-08-26] MEDS ORDERED: ONDANSETRON 4 MG/2 ML (SDV) Z0FRAN IVP ONE ×2 (00:45→01:45)
[2022-08-26] MEDS ORDERED: PANTOPRAZOLE 40 MG (PROTONIX) VIAL IV ONE (00:45)
[2022-08-26 00:55] LABS: BASOPHILS # (AUTO) 0.1 10^3/uL (0.0-0.1); BASOPHILS % (AUTO) 0 % (0-10); EOSINOPHILS # (AUTO) 0.2 10^3/uL (0.0-0.3); EOSINOPHILS % (AUTO) 1 % (0-10); HEMATOCRIT 40 % (40-54); LYMPHOCYTES # (AUTO) 1.4 10^3/uL (1.0-4.0); LYMPHOCYTES % (AUTO) 11 % (12-44); MEAN CORPUSCULAR HEMOGLOBIN 29 pg (25-34); MEAN CORPUSCULAR HGB CONC 33 g/dL (32-36); MEAN CORPUSCULAR VOLUME 88 fL (80-99); MEAN PLATELET VOLUME 11.8 fL (9.0-12.2); MONOCYTES # (AUTO) 0.8 10^3/uL (0.0-1.0); MONOCYTES % (AUTO) 7 % (0-12); NEUTROPHILS # (AUTO) 10.4 10^3/uL (1.8-7.8); NEUTROPHILS % (AUTO) 81 % (42-75); PLATELET COUNT 107 10^3/uL (130-400); WHITE BLOOD COUNT 12.8 10^3/uL (4.3-11.0)
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
[2022-08-26 01:02] LABS: BILIRUBIN,URINE NEGATIVE (NEGATIVE); CLARITY,URINE CLEAR; COLOR,URINE YELLOW; GLUCOSE, URINE (UA) NEGATIVE (NEGATIVE); KETONES,URINE NEGATIVE (NEGATIVE); LEUKOCYTE ESTERASE ,URINE TRACE (NEGATIVE); NITRITE,URINE NEGATIVE (NEGATIVE); PROTEIN,URINE 1+ (NEGATIVE)
[2022-08-26 01:04] LABS: INR 1.6 (0.8-1.4); PROTHROMBIN TIME PATIENT 19.8 SEC (12.2-14.7)
[2022-08-26 01:05] LABS: ALBUMIN 3.5 GM/DL (3.2-4.5); POTASSIUM 3.6 MMOL/L (3.6-5.0)
[2022-08-26 01:07] LABS: CALCIUM 8.9 MG/DL (8.5-10.1)
[2022-08-26 01:08] LABS: TOTAL PROTEIN 5.8 GM/DL (6.4-8.2)
[2022-08-26 01:09] LABS: BILIRUBIN,TOTAL 0.8 MG/DL (0.1-1.0)
[2022-08-26 01:11] LABS: BACTERIA,URINE NEGATIVE /HPF; RBC,URINE 25-50 /HPF
[2022-08-26 01:11] LABS: CREATININE SERUM 1.31 MG/DL (0.60-1.30)
[2022-08-26 01:12] LABS: SQUAMOUS EPITHELIAL CELL,UR 0-2 /HPF
[2022-08-26] MEDS ORDERED: fentaNYL INJ 100 MCG/2 ML AMP IVP ONE (01:45)
[2022-08-26] MEDS ORDERED: IOHEXOL 350 MG/ML 100 ML (OMNIPAQUE 350) VIAL IV ONE (02:45)
[2022-08-26] MEDS ORDERED: HOLD METFORMIN - RECEIVED CONTRAST 20 ML VIAL IV SCH (02:45)
[2022-08-26] MEDS ORDERED: NS 100 ML (IVPB) BAG IV ONE (02:45)
[2022-08-26] MEDS ORDERED: fentaNYL INJ 100 MCG/2 ML AMP IV PRN (03:15)
[2022-08-26] MEDS ORDERED: ONDANSETRON 4 MG/2 ML (SDV) Z0FRAN IV PRN (03:15)
[2022-08-26] MEDS ORDERED: NITROGLYCERIN 0.4 MG SL TABS BTL 25'S SL PRN (03:30)
[2022-08-26] MEDS: NS IV 1000 ML 1,000 ML IV SCH ×2 (04:25→12:19)
[2022-08-26 05:24] LABS: BASOPHILS # (AUTO) 0.1 10^3/uL (0.0-0.1); BASOPHILS % (AUTO) 0 % (0-10); EOSINOPHILS # (AUTO) 0.1 10^3/uL (0.0-0.3); EOSINOPHILS % (AUTO) 1 % (0-10); HEMATOCRIT 38 % (40-54); HEMOGLOBIN 12.7 g/dL (13.3-17.7); LYMPHOCYTES # (AUTO) 1.1 10^3/uL (1.0-4.0); LYMPHOCYTES % (AUTO) 8 % (12-44); MEAN CORPUSCULAR HEMOGLOBIN 30 pg (25-34); MEAN CORPUSCULAR HGB CONC 34 g/dL (32-36); MEAN CORPUSCULAR VOLUME 88 fL (80-99); MEAN PLATELET VOLUME 12.1 fL (9.0-12.2); MONOCYTES # (AUTO) 0.8 10^3/uL (0.0-1.0); MONOCYTES % (AUTO) 6 % (0-12); NEUTROPHILS # (AUTO) 11.5 10^3/uL (1.8-7.8); NEUTROPHILS % (AUTO) 85 % (42-75); WHITE BLOOD COUNT 13.6 10^3/uL (4.3-11.0)
[2022-08-26 05:38] LABS: POTASSIUM 4.6 MMOL/L (3.6-5.0)
[2022-08-26 05:40] LABS: CALCIUM 8.3 MG/DL (8.5-10.1)
[2022-08-26 05:41] LABS: TOTAL PROTEIN 5.2 GM/DL (6.4-8.2)
[2022-08-26 05:43] LABS: BILIRUBIN,TOTAL 0.8 MG/DL (0.1-1.0)
[2022-08-26 05:45] LABS: CREATININE SERUM 1.35 MG/DL (0.60-1.30)
[2022-08-26 05:46] LABS: PLATELET COUNT 88 10^3/uL (130-400); SMEAR SCAN COMMENT YES
[2022-08-26 05:48] LABS: MAGNESIUM 1.9 MG/DL (1.6-2.4)
[2022-08-26] MEDS ORDERED: inSUlin ASPART (NovoLOG) 1 UNIT/0.01 ML (CHARGE PER UNIT) SC SCH (06:00)
--- NOTE | 2022-08-26 06:16 | Diagnostic Imaging Report ---
INDICATION: CP, ABD PAIN CTA chest, abdomen and pelvis Thin axial sections through the chest, abdomen and pelvis are obtained following intravenous contrast bolus. Multiplanar MIP images were reconstructed and reviewed. All CT scans use one or more of the following dose optimizing techniques: automated exposure control, MA and/or KvP adjustment based on patient size and exam type or iterative reconstruction. INDICATION: Chest pain, nausea, and vomiting. FINDINGS: No prior examinations are available for comparison. There is some right basilar atelectasis and/or pneumonitis. There is a 1.3 cm nodule in the lateral aspect of the left lower lobe. There is no pleural or pericardial fluid. There is no pneumothorax. The thoracic aorta is normal in caliber without evidence of dissection. There are no filling defects seen within the pulmonary arteries to suggest pulmonary embolism. There has been an aortic valve replacement. There is no pathologically enlarged adenopathy in the chest. There are degenerative changes in the spine. The liver is normal in size without focal lesions. The gallbladder is surgically absent. There is no biliary duct dilatation. The spleen is normal. There is some atrophy of the pancreas. The adrenal glands are unremarkable. There is left hydronephrosis and hydroureter secondary to a 4 mm stone in the distal ureter just proximal to the UVJ. There is a small nonobstructing renal stone on the right. The aorta is nonaneurysmal. The bowel gas pattern is nonspecific. The appendix is normal. There is no free air. There is no ascites. There is some diverticular disease without evidence of diverticulitis. Bladder is normal. There is no pelvic mass or adenopathy. There are degenerative changes in the spine. IMPRESSION: A 1.3 cm noncalcified nodule in the lateral aspect of the left lower lobe. While this may be granulomatous or infectious the possibility of neoplasm cannot be excluded. Recommend follow-up imaging according to Fleischner criteria. Right basilar atelectasis and/or pneumonitis. Moderate left hydronephrosis secondary to a 4 mm stone just proximal to left UVJ. Diverticular disease without evidence of diverticulitis. Degenerative changes in the spine. Dictated by: Dictated on workstation # [id number]
--- NOTE | 2022-08-26 06:17 | Diagnostic Imaging Report ---
INDICATION: Altered mental status, nausea and vomiting. Comparison is made with prior examination 03/19/2022 FINDINGS: There is cardiomegaly. There is some venous congestion. There is patchy bibasilar atelectasis and/or pneumonitis. There is no pleural effusion or pneumothorax. Mediastinum is unremarkable. Pacemaker overlies right hemithorax. IMPRESSION: Patchy bibasilar atelectasis and/or pneumonitis. Cardiomegaly and some central pulmonary venous congestion. Dictated by: Dictated on workstation # [id number]
[2022-08-26] MEDS: ASPIRIN E.C. 81 MG (ECOTRIN) TAB PO SCH (08:54)
[2022-08-26] MEDS: PANTOPRAZOLE 40 MG (PROTONIX) VIAL IV SCH (08:54)
[2022-08-26] MEDS: inSUlin ASPART (NovoLOG) 1 UNIT/0.01 ML (CHARGE PER UNIT) SC SCH ×3 (11:30→20:36)
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
[2022-08-26] MEDS ORDERED: FAMO20TA5 PO (12:57)
[2022-08-26] MEDS ORDERED: SEMA2PEN SQ (12:57)
[2022-08-26] MEDS ORDERED: VANC125C5 PO (12:57)
[2022-08-26] MEDS ORDERED: INSU200I4 SQ (12:57)
[2022-08-26] MEDS: D5 NS 1000 ML IV SOLUTION 1,000 ML IV SCH (13:00)
--- NOTE | 2022-08-26 14:21 | Physical Therapy Evaluation ---
PT Evaluation-General Medical Diagnosis Admission Date August 26, 2022 at 02:43 Medical Diagnosis: AMS, Nausea, Vomiting Onset Date: August 26, 2022 Therapy Diagnosis Therapy Diagnosis: Gait deficit, strength deficit Precautions Precautions/Isolations: Fall Prevention, Standard Precautions Weight Bear Status Right Lower Extremity: Right Full Weight Bearing Left Lower Extremity: Left Full Weight Bearing Referral Physician: Dr. De Dios Reason for Referral: Evaluation/Treatment Medical History Pertinent Medical History: Atrial Fib, CAD, COPD, DM, HTN, Neuropathy Reviewed History: Yes Social History Home: Single Level Current Living Status: Spouse Entry Into Home: Ramp, Stairs With Railing PT Steps Into Home: 8 Prior Prior Level of Function SCALE: Activities may be completed with or without assistive devices. 1-Zeqmnsohrx-tomaswj completes the activity by him/herself with no assistance from a helper. 5-Set-up or Clean-up Assistance-helper sets up or cleans up; patient completes activity. [place] assists only prior to or following the activity. 4-Supervision or Touching Assistance-helper provides verbal cues and/or touching/steadying and/or contact guard assistance as patient completes activity. Assistance may be provided throughout the activity or intermittently. 3-Partial/Moderate Assistance-helper does LESS THAN HALF the effort. [place] lifts, holds or supports trunk or limbs, but provides less than half the effort. 2-Substantial/Maximal Assistance-helper does MORE THAN HALF the effort. [place] lifts or holds trunk or limbs and provides more than half the effort. 5-Gyvquzlvd-ydzdxb does ALL the effort. Patient does none of the effort to complete the activity. Or, the assistance of 2 or more helpers is required for the patient to complete the activity. If activity was not attempted, code reason: 7-Patient Refused. 9-Not Applicable-not attempted and the patient did not perform the activity before the current illness, exacerbation or injury. 10-Not Attempted due to Environmental Limitations-(lack of equipment, weather restraints, etc.). 88-Not Attempted due to Medical Conditions or Safety Concerns. Bed Mobility: 6 Transfers (B,C,W/C): 6 Gait: 6 Stairs: 6 Indoor Mobility (Ambulation): Independent Stairs: Independent Prior Devices Use: Other-see list below Patient reports he uses an assistive device, however is unable to remember what he uses. PT Evaluation-Current Subjective Patient lying supine in bed upon PT arrival, agreeable to treatment. Patient reports no pain at this time. Patient confused and is only able to remember his name, not time or location. The rest of the subjective history is unreliable. Objective Patient Orientation: Person Attachments: IV ROM/Strength ROM Lower Extremities WFLs bilaterally all planes Strength Lower Extremities 3+/5 BLEs all planes. Sensory Vision: Functional Hearing: Functional Sensation Right Lower Extremit: Impaired Sensation Left Lower Extremity: Impaired Sensation Lower Extremities Patient unable to identify most LE dermatomes to light touch, however patient may not be able to comprehend testing at this time. Transfers Roll Left to Right (QC): 2 Sit to Lying (QC): 2 Lying to Sitting/Side of Bed(Q: 2 Sit to Stand (QC): 2 Gait Does the Patient Walk?: No and Walking Goal IS indicated Mode of Locomotion: Walk Anticipated Mode of Locomotion: Walk Balance Sitting Static: Fair Sitting Dynamic: Poor Standing Static: Poor Standing Dynamic: Poor Assessment/Needs Patient pleasantly confused, however does demonstrate minimal difficulty following commands. Patient performs all bed mobility and transfers with max A. Patient sits at EOB ~2 minutes with SBA, however he reports dizziness and becomes significantly retropulsive, to the point where he requires max A to avoid falling. Patient fatigues quickly and requires max A to return to bed. Bed declined and patient able to use the overhead rails to pull himself up in bed. Patient in bed post treatment with all needs met, nursing notified, call light in hand, and bed alarm activated. Rehab Potential: [employer] Goals Retirement Goals PT Retirement Goals Time Frame: September 07, 2022 Roll Left & Right (QC): 4 Sit to Lying (QC): 4 Lying-Sitting on Side/Bed(QC): 4 Sit to Stand (QC): 4 Chair/Zzb-jm-Ygmjw Xfer(QC): 4 Toilet Transfer (QC): 4 Does the Patient Walk: Yes Walk 10 feet (QC): 3 Walk 50ft with 2 Turns (QC): 3 Walk 150 ft (QC): 3 PT Plan Problem List Problem List: Activity Tolerance, Functional Strength, Safety, Balance, Gait, Transfer, Bed Mobility, ROM Treatment/Plan Treatment Plan: Continue Plan of Care Treatment Plan: Bed Mobility, Education, Functional Activity Rani, Functional Strength, Group Therapy, Gait, Safety, Therapeutic Exercise, Transfers Treatment Duration: September 25, 2022 Frequency: 6 times per week Estimated Hrs Per Day: .25 hour per day Patient and/or Family Agrees t: Yes Safety Risks/Education Patient Education: Transfer Techniques, Correct Positioning Teaching Recipient: Patient Teaching Methods: Demonstration, Discussion Response to Teaching: Reinforcement Needed Time Time In: 1345 Time Out: 1410 DATE: August 26, 2022 Total Billed Treatment Time: 25 Total Billed Treatment Visit, CLARK GALARZA JOHN A PT August 26, 2022 14:21
--- NOTE | 2022-08-26 18:13 | Consultation-Cardiology ---
HPI-Cardiology Cardiology Consultation: Date of Consultation 08/26/22 Time Seen by a Provider: 13:20 Date of Admission Attending Physician Donato Paz DO Admitting Physician Admitting Physician: Eden Fodre DO Attending Physician: Eden Forde DO Consulting Physician MERCEDES VAZQUEZ MD, MA, FACP, FACC, [facility], CCDS Physician requesting consult: Dr Forde HPI: Chief Complaint: Reason for Card consult: Elevated troponin 87 yo man admitted to Dr Forde with poor oral intake and increasing confusion whom we have been asked to see today because troponin at presentation was mildly elevated. He denies cp or palp or syncope or shortness of breath and family confirms this. Review of Systems-Cardiology Review of Systems Constitutional: As described under HPI, malaise; No weight loss, No weight gain Eyes: No vision change Ears/Nose/Throat: No ear discharge, No nasal drainage, No recent hearing loss Respiratory: As described under HPI Cardiovascular: As described under HPI Gastrointestinal: As described under HPI; No nausea, No vomiting Genitourinary: No dysuria, No hematuria Musculoskeletal: back pain (chronic) Skin: No rash, No ulcerations Psychiatric/Neurological: No seizure, No focal weakness, No syncope Hematologic: No bleeding abnormalities [id number] Hx Patient Social History Smoking Status: Former Smoker 2nd Hand Smoke Exposure: No Have you traveled recently?: No Alcohol Use?: No Pt feels they are or have been: No Immunizations Up To Date Tetanus Booster (TDap): Unknown Date of Pneumonia Vaccine: Feb 11, 2017 Date of Influenza Vaccine: Jan 16, 2020 Past Medical History PMH As described under Assessment. Family Medical History Family Medical History: H/O CAD in his father, brother and a son Allergies and Home Medications Allergies Coded Allergies: Penicillins (Verified Allergy, Severe, Anaphylaxis, 01/15/22) promethazine (Verified Allergy, Severe, Anaphylaxis, 01/15/22) ramelteon (Verified Allergy, Unknown, Shortness of Breath, 02/27/20) "Severe bronchospasm" sotalol (Verified Allergy, Unknown, Shortness of Breath, 02/27/20) "Severe bronchospasm" Patient Home Medication List Home Medication List Reviewed: Yes Albuterol Sulfate (Ventolin Hfa) 18 Gm Hfa.aer.ad, 2 PUFF INH Q4H PRN for SHORTNESS OF BREATH, (Reported) Entered as Reported by: DONATO MORRISON on 04/20/20 1038 Last Action: Reviewed Apixaban (Eliquis) 5 Mg Tablet, 5 MG PO BID, (Reported) Entered as Reported by: CLARISA SOARES on 04/20/2016 Last Action: Reviewed Aspirin (Aspirin EC) 81 Mg Tablet.dr, 162 MG PO 1800, (Reported) Entered as Reported by: DONATO MORRISON on 04/20/20 1049 Last Action: Reviewed Atorvastatin Calcium (Atorvastatin Calcium) 20 Mg Tablet, 20 MG PO HS, (Reported) Entered as Reported by: CLARISA SOARES on 04/20/20 0616 Last Action: Reviewed Famotidine (Famotidine) 20 Mg Tablet, 20 MG PO DAILY, (Reported) Entered as Reported by: DONATO MORRISON on 08/26/22 1257 Last Action: Reviewed Fluticasone/Umeclidin/Vilanter (Trelegy Ellipta 100-62.5-25) 1 Each Blst.w.dev, 1 PUFF INH HS, (Reported) Entered as Reported by: CLARISA SOARES on 04/20/20 0616 Last Action: Reviewed Glucagon (Gvoke Hypopen) 0.5 Mg/0.1 Ml Auto.injct, 0.5 MG SQ UD PRN for HYPOGLYCEMIA, (Reported) Entered as Reported by: CALVIN RING on 01/14/22 1338 Last Action: Reviewed Insulin Aspart (Insulin Aspart Flexpen) 100 Unit/Ml (3 Ml) Insuln.pen, UNIT SQ AC, (Reported) Entered as Reported by: DONATO MORRISON on 03/19/22 1034 Last Action: Reviewed Insulin Degludec (Tresiba Flextouch U-200) 200 Unit/Ml (3 Ml) Insuln.pen, 58 UNIT SQ DAILY, (Reported) Entered as Reported by: DONATO MORRISON on 08/26/22 1257 Last Action: Reviewed Latanoprost/Pf (Latanoprost 0.005% Eye Drop) 0.005 % Drops, 1 DROP OU HS, (Repo rted) Entered as Reported by: ABHINAV CAZARES on 12/10/21 1255 Last Action: Reviewed Nitroglycerin (Nitroglycerin) 0.4 Mg Tab.subl, 0.4 MG SL UD PRN for CHEST PAIN (ANGINA), (Reported) Entered as Reported by: DONATO MORRISON on 04/20/20 1038 Last Action: Reviewed Semaglutide (Ozempic) 2 Mg/0.75 Ml (8 Mg/3 Ml) Pen.injctr, 2 MG SQ FRI, (Reported) Entered as Reported by: DONATO MORRISON on 08/26/22 1257 Last Action: Reviewed Sertraline HCl (Sertraline HCl) 50 Mg Tablet, 75 MG PO 1800, (Reported) Entered as Reported by: ABHINAV CAZARES on 12/10/21 1255 Last Action: Reviewed Tamsulosin HCl (Flomax) 0.4 Mg Cap, 0.4 MG PO BID, (Reported) Entered as Reported by: ABHINAV CAZARES on 12/10/21 1255 Last Action: Reviewed Vancomycin HCl (Vancomycin HCl) 125 Mg Capsule, 125 MG PO HS, (Reported) Entered as Reported by: DONATO MORRISON on 08/26/22 1257 Last Action: Reviewed Discontinued Medications Calcium Carbonate/Vitamin D3 (Calcium 600 + Vit D3 400 Tab) 1 Each Tablet, 1 EACH PO DAILY, (Reported) Discontinued Reason: No Longer Taking Entered as Reported by: CLARISA SOARES on 04/20/20 0616 Last Action: Discontinued Cephalexin (Cephalexin) 500 Mg Tablet, 500 MG PO TID Discontinued Reason: No Longer Taking Prescribed by: SELINA MARIE on 04/29/22 1831 Last Action: Discontinued Clotrimazole (Lotrimin AF) 1 % Cream..g., 12 GM TP BID Discontinued Reason: No Longer Taking Prescribed by: EDEN FORDE on 03/25/22 1041 Last Action: Discontinued Empagliflozin (Jardiance) 25 Mg Tablet, 25 MG PO DAILY, (Reported) Discontinued Reason: No Longer Taking Entered as Reported by: ABHINAV CAZARES on 12/10/21 1255 Last Action: Discontinued Famotidine (Famotidine) 20 Mg Tablet, 20 MG PO DAILY Discontinued Reason: Duplicate Order Prescribed by: EDEN FORDE on 01/28/22 0522 Last Action: Discontinued Furosemide (Furosemide) 20 Mg Tablet, 20 MG PO DAILY, (Reported) Discontinued Reason: No Longer Taking Entered as Reported by: EMELYN CABRERA on 09/12/20 0742 Last Action: Discontinued Insulin Degludec (Tresiba Flextouch U-200) 200 Unit/Ml (3 Ml) Insuln.pen, 40 UN ITS SQ DAILY Discontinued Reason: No Longer Taking Prescribed by: EDEN FORDE on 03/25/22 1041 Last Action: Discontinued Losartan Potassium (Losartan Potassium) 25 Mg Tablet, 12.5 MG PO DAILY, (Reported) Discontinued Reason: No Longer Taking Entered as Reported by: CLARISA SOARES on 04/20/20 0616 Last Action: Discontinued Potassium Chloride (Potassium Chloride) 8 Meq Capsule.er, 16 MEQ PO DAILY, (Reported) Discontinued Reason: No Longer Taking Entered as Reported by: CALVIN RING on 01/14/22 1335 Last Action: Discontinued Semaglutide (Ozempic) 1 Mg/0.75 Ml (4 Mg/3 Ml) Pen.injctr, 1 MG SQ FRI, (Reported) Discontinued Reason: No Longer Taking Entered as Reported by: ABHINAV CAZARES on 12/10/21 1255 Last Action: Discontinued Vancomycin HCl (Vancomycin HCl) 125 Mg Capsule, 125 MG PO QID Discontinued Reason: Duplicate Order Prescribed by: EDEN FORDE on 03/25/22 1041 Last Action: Discontinued Physical Exam-Cardiology Physical Exam Vital Signs/I&O 08/26/22 08/26/22 08/26/22 08/26/22 07:20 08:00 08:00 12:00 Temp 37.2 36.2 Pulse 70 70 69 Resp 16 18 B/P (MAP) 126/61 (82) 123/73 (90) Pulse Ox 96 98 96 O2 Delivery Room Air Room Air Room Air 08/26/22 08/26/22 08/26/22 08/26/22 12:16 12:20 14:17 15:10 Temp 36.5 36.2 Pulse 69 70 69 Resp 18 18 B/P (MAP) 154/57 (89) 144/73 (96) Pulse Ox 99 99 96 O2 Delivery Room Air Room Air Room Air Capillary Refill : Less Than 3 Seconds Constitutional: No AAO x 3; other (mildly confused, pleasant) HEENT: PERRL, EOMI; No xanthelasmas are seen Neck: carotid pulses are 2 + bilaterally, with good upstrokes Respiratory: No accessory muscle use; chest expansion is symmetric, chest is bilaterally symmetric, other (fair to good, bilateral air entry) Cardiovascular: regular rate-rhythm, S1 and S2, systolic murmur (soft YARON at card base) Gastrointestinal: No tender; soft; No guarding, No rebound; audible bowel sounds Extremities: No clubbing, No cyanosis, No significant edema Neurologic/Psychiatric: other (mildly confused, moves all limbs, cannot cooperate with a neuro exam) Skin: No rash on exposed areas, No ulcerations on exposed areas Data Review Labs Laboratory Tests 08/26/22 00:41: White Blood Count 12.8H, Red Blood Count 4.48, Hemoglobin 13.0L, Hematocrit 40, Mean Corpuscular Volume 88, Mean Corpuscular Hemoglobin 29, Mean Corpuscular Hemoglobin Concent 33, Red Cell Distribution Width 15.4H, Platelet Count 107L, Mean Platelet Volume 11.8, Immature Granulocyte % (Auto) 1, Neutrophils (%) (Auto) 81H, Lymphocytes (%) (Auto) 11L, Monocytes (%) (Auto) 7, Eosinophils (%) (Auto) 1, Basophils (%) (Auto) 0, Neutrophils # (Auto) 10.4H, Lymphocytes # (Auto) 1.4, Monocytes # (Auto) 0.8, Eosinophils # (Auto) 0.2, Basophils # (Auto) 0.1, Immature Granulocyte # (Auto) 0.1, Percent Immature Platelet Fraction 6.1, Prothrombin Time 19.8H, INR Comment 1.6H, Activated Partial Thromboplast Time 39H, Sodium Level 142, Potassium Level 3.6, Chloride Level 110H, Carbon Dioxide Level 22, Anion Gap 10, Blood Urea Nitrogen 17, Creatinine 1.31H, Estimat Glomerular Filtration Rate 53, BUN/Creatinine Ratio 13, Glucose Level 103, Calcium Level 8.9, Corrected Calcium 9.3, Magnesium Level 2.0, Total Bilirubin 0.8, Aspartate Amino Transf (AST/SGOT) 13, Alanine Aminotransferase (ALT/SGPT) 7, Alkaline Phosphatase 90, Troponin I 0.032H, B-Type Natriuretic Peptide 231.6H , Total Protein 5.8L, Albumin 3.5, Amylase Level 28, Lipase 20 08/26/22 00:52: Lactic Acid Level 0.77 08/26/22 00:54: Urine Color YELLOW, Urine Clarity CLEAR, Urine pH 6.0, Urine Specific Hemphill 1.025H, Urine Protein 1+H, Urine Glucose (UA) NEGATIVE, Urine Ketones NEGATIVE, Urine Nitrite NEGATIVE, Urine Bilirubin NEGATIVE, Urine Urobilinogen 0.2, Urine Leukocyte Esterase TRACEH, Urine RBC (Auto) 3+H, Urine RBC 25-50H, Urine WBC NONE, Urine Squamous Epithelial Cells 0-2, Urine Crystals NONE, Urine Bacteria N EGATIVE, Urine Casts NONE, Urine Mucus NEGATIVE, Urine Culture Indicated NO 08/26/22 05:17: White Blood Count 13.6H, Red Blood Count 4.25L, Hemoglobin 12.7L, Hematocrit 38L , Mean Corpuscular Volume 88, Mean Corpuscular Hemoglobin 30, Mean Corpuscular Hemoglobin Concent 34, Red Cell Distribution Width 15.2H, Platelet Count 88L, Mean Platelet Volume 12.1, Immature Granulocyte % (Auto) 0, Neutrophils (%) (Auto) 85H, Lymphocytes (%) (Auto) 8L, Monocytes (%) (Auto) 6, Eosinophils (%) (Auto) 1, Basophils (%) (Auto) 0, Neutrophils # (Auto) 11.5H, Lymphocytes # (Auto) 1.1, Monocytes # (Auto) 0.8, Eosinophils # (Auto) 0.1, Basophils # (Auto) 0.1, Immature Granulocyte # (Auto) 0.1, Sodium Level 141, Potassium Level 4.6, Chloride Level 115H, Carbon Dioxide Level 17L, Anion Gap 9, Blood Urea Nitrogen 16, Creatinine 1.35H, Estimat Glomerular Filtration Rate 51, BUN/Creatinine Ratio 12, Glucose Level 97, Calcium Level 8.3L, Corrected Calcium 9.1, Magnesium Level 1.9, Total Bilirubin 0.8, Aspartate Amino Transf (AST/SGOT) 17, Alanine Aminotransferase (ALT/SGPT) 6, Alkaline Phosphatase 77, Troponin I 0.077H, Total Protein 5.2L, Albumin 3.0L, Phosphorus Level 3.0, Triglycerides Level 60, Cholesterol Level 67, LDL Cholesterol Direct 38, VLDL Cholesterol 12, HDL Cholesterol 20L, Smear Scan YES 08/26/22 11:28: Glucometer 74 08/26/22 12:10: Glucometer 68L 08/26/22 15:13: Glucometer 75 Laboratory Tests 08/26/22 00:41 08/26/22 05:17 A/P-Cardiology Assessment/Admission Diagnosis Poor oral intake and worsening confusion - managed by Dr Forde Mild troponin elevation - probably type 2 TN due to hypertension Chronic poor balance Shortness of breath with exertion - chronic and unchanged - Echocardiogram of 06-08-20. LVEF 60-65%. Grade 2 diastolic dysfunction. Mild MR. Mild to mod TR. PASP 50-55mmHg - Echo of 07/23/22: LVEF 55-60%, mild MAC, adequately functioning TAVR H/o dual ch perm pacemaker ([employer] / [employer]) - implanted for symptomatic bradycardia in Nov [address] Brooks in [place], [place]. - gen change in late August 2020 - device functioning normally per interrogation of 07-24-22 S/p TAVR - (Sep[employer] Bovine Model [id number], Sr no [id number]) on 12/24/19 at [place], [place] H/o SVT and A Fib/Fl - stated to have been treated with ablation in October 2016 at [place], [place] - chronic apixaban anticoagulation CAD - H/o cor stents in Mar [address] [facility], [place]. - MPI of 01-16-21 No evidence of any significant myocardial ischemia or infarction on this study. Normal regional wall motion. Normal global left ventricular systolic function with a calculated ejection fraction of 71%. COPD - managed by PCP DM II - managed by PCP Obesity - with BMI approx 30 and obesity-hypoventilation and MONISHA Medication Allergies - (per pt report): Anaphylaxis for penicillin and phenergan - bronchospasm with sotalol and rozarem Opthamology - H/o bilateral cataract surgery and lens implants L-sided, dry, macular degen Chronic hearing loss Carotid dz - There appears to be considerable plaque and moderate stenosis of the R common carotid and mild to moderate stenosis of the R internal carotid. Approximately 50% L internal carotid artery stenosis per u/s of Feb 23, 2020 - Carotid u/s of 07-03-21 shows approx 60-79% L ICA and approx 50% R ICA stenosis Leg discomfort - Segmentals pressure of Feb 23, 2020 showed no evidence of any signif blood flow impairment to the distal arterial circulation of the lower limbs. Prox atherosclerosis is suggested. - No c/o claudication Discussion and Recomendations * Continue ASA * Add beta-kinza * Monitor labs * Address nutrition and oral intake (Dr Forde managing) MERCEDES VAZQUEZ MD FACP FACC CCDS August 26, 2022 18:13
[2022-08-27 03:11] VITALS: BP 170/74
[2022-08-27] MEDS: inSUlin ASPART (NovoLOG) 1 UNIT/0.01 ML (CHARGE PER UNIT) SC SCH ×4 (05:14→21:39)
[2022-08-27] MEDS ORDERED: RT-ALBUTEROL SULF 2.5 MG/3 ML PRE-MIX VIAL INH PRN (05:15)
[2022-08-27] MEDS ORDERED: NITROGLYCERIN 0.4 MG SL TABS BTL 25'S SL PRN (05:15)
[2022-08-27] MEDS ORDERED: GLUCAGON SQ PRN (05:15)
[2022-08-27] MEDS ORDERED: SEMAGLUTIDE 2 MG SQ SCH (05:15)
[2022-08-27] MEDS ORDERED: diphenhydrAMINE 25 MG TAB (BENADRYL) PO PRN (05:30)
[2022-08-27] MEDS ORDERED: MILK OF MAGNESIA 400 MG/5 ML 30 ML UDC PO PRN (05:30)
[2022-08-27] MEDS ORDERED: ONDANSETRON 4 MG (ZOFRAN) ORAL DISSOLVE TAB PO PRN (05:30)
[2022-08-27] MEDS ORDERED: HYDROmorphone 2 MG/ML VIAL (DILAUDID) IV PRN (05:30)
[2022-08-27] MEDS ORDERED: ONDANSETRON 4 MG/2 ML (SDV) Z0FRAN IV PRN (05:30)
[2022-08-27] MEDS ORDERED: ACETAMINOPHEN 325 MG TABLET PO PRN (05:30)
[2022-08-27] MEDS ORDERED: BISACODYL 10 MG SUPP (DULCOLAX) PR PRN (05:30)
[2022-08-27] MEDS ORDERED: ANTACID SUSP 30 ML UDC (MYLANTA) PO PRN (05:30)
[2022-08-27] MEDS ORDERED: polyethylene glycoL POWDER 17 GM (MIRALAX) PACK PO PRN (05:30)
[2022-08-27] MEDS ORDERED: LACTULOSE SYRUP 10GM/15ML (ENULOSE) 30ML UDC PO PRN (05:30)
[2022-08-27] MEDS ORDERED: CALCIUM CARBONATE 500 MG (TUMS) TAB.CHEW PO PRN (05:30)
[2022-08-27] MEDS ORDERED: diphenhydrAMINE 50 MG/ML INJ (BENADRYL) IVP PRN (05:30)
[2022-08-27] MEDS: D5 NS 1000 ML IV SOLUTION 1,000 ML IV SCH (05:43)
[2022-08-27 05:47] LABS: ALBUMIN 2.9 GM/DL (3.2-4.5)
[2022-08-27 05:49] LABS: TOTAL PROTEIN 4.7 GM/DL (6.4-8.2)
[2022-08-27 05:51] LABS: BILIRUBIN,TOTAL 0.7 MG/DL (0.1-1.0)
[2022-08-27 05:53] LABS: CREATININE SERUM 1.41 MG/DL (0.60-1.30)
[2022-08-27 05:56] LABS: MAGNESIUM 1.9 MG/DL (1.6-2.4)
[2022-08-27 06:23] LABS: LYMPHOCYTES # (AUTO) 1.4 10^3/uL (1.0-4.0)
[2022-08-27 06:25] LABS: BASOPHILS # (AUTO) 0.1 10^3/uL (0.0-0.1); BASOPHILS % (AUTO) 1 % (0-10); EOSINOPHILS # (AUTO) 0.3 10^3/uL (0.0-0.3); EOSINOPHILS % (AUTO) 3 % (0-10); HEMATOCRIT 38 % (40-54); LYMPHOCYTES % (AUTO) 14 % (12-44); MEAN CORPUSCULAR HEMOGLOBIN 29 pg (25-34); MEAN CORPUSCULAR HGB CONC 32 g/dL (32-36); MEAN CORPUSCULAR VOLUME 92 fL (80-99); MEAN PLATELET VOLUME 12.3 fL (9.0-12.2); MONOCYTES # (AUTO) 0.6 10^3/uL (0.0-1.0); MONOCYTES % (AUTO) 6 % (0-12); NEUTROPHILS # (AUTO) 7.6 10^3/uL (1.8-7.8); NEUTROPHILS % (AUTO) 75 % (42-75); PLATELET COUNT 94 10^3/uL (130-400); WHITE BLOOD COUNT 10.1 10^3/uL (4.3-11.0)
[2022-08-27] MEDS: SENNOSIDES 8.6 MG (SENOKOT) TAB PO SCH ×2 (08:54→19:37)
[2022-08-27] MEDS: PANTOPRAZOLE 40 MG (PROTONIX) VIAL IV SCH (08:54)
[2022-08-27] MEDS: ASPIRIN E.C. 81 MG (ECOTRIN) TAB PO SCH ×2 (08:54→18:12)
[2022-08-27] MEDS: APIXABAN 5 MG (ELIQUIS) TABLET PO SCH ×2 (08:54→19:37)
[2022-08-27] MEDS: FAMOTIDINE 20 MG (PEPCID) TABLET PO SCH (08:54)
[2022-08-27] MEDS: DOCUSATE SODIUM 100 MG (COLACE) CAP PO SCH ×2 (08:54→19:37)
[2022-08-27] MEDS: TAMSULOSIN 0.4 MG (FLOMAX) CAP PO SCH ×2 (08:54→19:37)
[2022-08-27] MEDS ORDERED: ASPIRIN 81 MG CHEW (CHILDREN'S ASA) PO SCH (09:00)
--- NOTE | 2022-08-27 11:23 | Progress Note ---
YVONNE CLEMENT 08/27/22 1123: Subjective Time Seen by a Provider: 10:15 Subjective/Events-last exam Pt doing relatively well this am, sitting comfortably in chair. Reports no nausea or abd pain this am, denies n/v/f/c. Has been eating but not full meals and drinking w/o issue. Denies other pain, UOP good, no BM since admission, ambulating some with help. Pt oriented only to person, daughter is present and concerned about mental decline. Provider discussed pts dementia and how sickness can amplify delirum/dementia sxs. Discussed palliative care with daughter and plan is to have them meet with her and pts . Focused Exam Lactate Level 08/26/22 00:52: Lactic Acid Level 0.77 Objective Exam Last Set of Vital Signs Vital Signs Date Time Temp Pulse Resp B/P (MAP) Pulse Ox O2 Delivery O2 Flow Rate FiO2 08/27/22 03:11 36.9 71 20 170/74 (106) 93 Room Air Capillary Refill : Less Than 3 Seconds I&O Intake and Output 08/27/22 00:00 Intake Total 2175 ml Output Total 450 ml Balance 1725 ml Intake Oral 0 ml IV Total 2175 ml Output Urine Total 450 ml # Voids 2 Daily Weight Change Unsure General: Alert, Cooperative, No Acute Distress HEENT: Atraumatic, PERRLA Neck: Supple, No JVD, No Thyromegaly Lungs: Clear to Auscultation, Normal Air Movement Heart: Regular Rate, Normal S1, Normal S2, No Murmurs Abdomen: Normal Bowel Sounds, Soft, No Tenderness, No Hepatosplenomegaly, No Masses Extremities: No Clubbing, No Cyanosis, No Edema, Normal Pulses, No Tenderness/Swelling Skin: No Rashes, No Breakdown, No Significant Lesion Results Lab Laboratory Tests 08/26/22 11:28: Glucometer 74 08/26/22 12:10: Glucometer 68L 08/26/22 15:13: Glucometer 75 08/26/22 20:22: Glucometer 114H 08/27/22 05:07: White Blood Count 10.1, Red Blood Count 4.08L, Hemoglobin 12.0L, Hematocrit 38L, Mean Corpuscular Volume 92, Mean Corpuscular Hemoglobin 29, Mean Corpuscular Hemoglobin Concent 32, Red Cell Distribution Width 15.5H, Platelet Count 94L, Mean Platelet Volume 12.3H, Immature Granulocyte % (Auto) 1, Neutrophils (%) (Auto) 75, Lymphocytes (%) (Auto) 14, Monocytes (%) (Auto) 6, Eosinophils (%) (Auto) 3, Basophils (%) (Auto) 1, Neutrophils # (Auto) 7.6, Lymphocytes # (Auto) 1.4, Monocytes # (Auto) 0.6, Eosinophils # (Auto) 0.3, Basophils # (Auto) 0.1, Immature Granulocyte # (Auto) 0.1, Percent Immature Platelet Fraction 4.8, Sodium Level 141, Potassium Level 4.0, Chloride Level 114H, Carbon Dioxide Level 17L, Anion Gap 10, Blood Urea Nitrogen 15, Creatinine 1.41H, Estimat Glomerular Filtration Rate 49, BUN/Creatinine Ratio 11, Glucose Level 97, Calcium Level 8.0L, Corrected Calcium 8.9, Magnesium Level 1.9, Total Bilirubin 0.7, Aspartate Amino Transf (AST/SGOT) 14, Alanine Aminotransferase (ALT/SGPT) 6, Alkaline Phosphatase 80, Total Protein 4.7L, Albumin 2.9L 08/27/22 05:14: Glucometer 79 08/27/22 11:03: Glucometer 153H Assessment/Plan Assessment/Plan Assess & Plan/Chief Complaint CC: AMS AMS Dementia - acute delirium improved though still only oriented to person - underlying dementia likely advanced - family to meet with palliative care Possible BERENICE - CTA chest/abd/pelvis demonstrated: 4 MM LEFT DISTAL URETERAL STONE JUST PROXIMAL TO U.V.J. WITH HYDROURETER AND HYDRONEPHROSIS - UA bland and patient not septic at this time - Cr 1.41 today (1.35 on 08/26), BL unknown - if Cr is elevated from BL BERENICE mild at this time, post renal - likely source of abd discomfort, nausea, and vomiting - cont IVF - pain management - CTM - will need urology f/u op Mild CHF Elevated Troponin aFib Hx CAD s/p stenting (2007 and 2014) - troponin mildly elevated 0.077 - BNP 231.6 - EKG shows NSR - Cardiology consulted, appreciate recs IDDM Poor PO intake - started ensure meal supplementation; pt eating some of his meals - ISS and accuchecks - CTM Poor mobility - Cont to work with PT/OT RADHA FORDE DO 08/27/22 1604: Subjective Date Seen by a Provider: August 27, 2022 Supervisory-Addendum Brief Verification & Attestation Participated in pt care: history, MDM, physical Personally performed: exam, history, MDM, supervision of care Care discussed with: Medical Student Procedures: n/a Results interpretation: Verified all documentation Verification and Attestation of Medical Student E/M Service A medical student performed and documented this service in my presence. I reviewed and verified all information documented by the medical student and made modifications to such information, when appropriate. I personally performed the physical exam and medical decision making. Radha Forde, August 27, 2022,16:04 YVONNE CLEMENT August 27, 2022 11:23 RADHA FORDE DO August 27, 2022 16:04
--- NOTE | 2022-08-27 12:11 | Cardiology Progress Note ---
Subjective Date Seen by Provider: August 27, 2022 Time Seen by Provider: 08:30 Subjective/Events-last exam Patient is sitting up at bedside. No new complaints. Reports ongoing dyspnea. Focused Exam Lactate Level 08/26/22 00:52: Lactic Acid Level 0.77 Objective-Cardiology Exam Last Set of Vital Signs Vital Signs 08/27/22 03:11 Temp 36.9 Pulse 71 Resp 20 B/P (MAP) 170/74 (106) Pulse Ox 93 O2 Delivery Room Air I&O Intake and Output 08/27/22 00:00 Intake Total 2175 ml Output Total 450 ml Balance 1725 ml Intake Oral 0 ml IV Total 2175 ml Output Urine Total 450 ml # Voids 2 Daily Weight Change Unsure General: Alert, Cooperative, No Acute Distress HEENT: Atraumatic, PERRLA Neck: Supple, No JVD, No Thyromegaly Lungs: Clear to Auscultation, Normal Air Movement Heart: Regular Rate, Normal S1, Normal S2, No Murmurs Abdomen: Normal Bowel Sounds, Soft, No Tenderness, No Hepatosplenomegaly, No Masses Extremities: No Clubbing, No Cyanosis, No Edema, Normal Pulses, No Tenderness/Swelling Skin: No Rashes, No Breakdown, No Significant Lesion Results Lab Laboratory Tests 08/27/22 05:07 A/P-Cardiology Admission Diagnosis Elevated troponin Dyspnea CAD TAVR Assessment/Plan Mild troponin elevation, probably type 2 OH due to hypertension Chronic poor balance Shortness of breath with exertion, chronic and unchanged - Echocardiogram of 06-08-20. LVEF 60-65%. Grade 2 diastolic dysfunction. Mild MR. Mild to mod TR. PASP 50-55mmHg - Echo of 07/23/22: LVEF 55-60%, mild MAC, adequately functioning TAVR H/o dual ch perm pacemaker ([employer] / [employer]) - implanted for symptomatic bradycardia in Nov [address] Brooks in [place], [place]. - gen change in late August 2020 - device functioning normally per interrogation of 07-24-22 S/p TAVR - (Sep[employer] Bovine Model [id number], Sr no [id number]) on 12/24/19 at [place], [place] H/o SVT and A Fib/Fl - stated to have been treated with ablation in October 2016 at [place], [place] - chronic apixaban anticoagulation CAD - H/o cor stents in Mar 2015 at [facility]. - MPI of 01-16-21 No evidence of any significant myocardial ischemia or infarction on this study. Normal regional wall motion. Normal global left ventricular systolic function with a calculated ejection fraction of 71%. COPD - managed by PCP DM II - managed by PCP Obesity - with BMI approx 30 and obesity-hypoventilation and MONISHA Medication Allergies - (per pt report): Anaphylaxis for penicillin and phenergan - bronchospasm with sotalol and rozarem Opthamology - H/o bilateral cataract surgery and lens implants L-sided, dry, macular degen Chronic hearing loss Carotid dz - There appears to be considerable plaque and moderate stenosis of the R common carotid and mild to moderate stenosis of the R internal carotid. Approximately 50% L internal carotid artery stenosis per u/s of Feb 23, 2020 - Carotid u/s of 07-03-21 shows approx 60-79% L ICA and approx 50% R ICA stenosis Leg discomfort - Segmentals pressure of Feb 23, 2020 showed no evidence of any signif blood flow impairment to the distal arterial circulation of the lower limbs. Prox atherosclerosis is suggested. - No c/o claudication Supervisory-Addendum Brief Supervisory Addendum Participated in pt care: history, MDM, physical Personally performed: exam, history, MDM Care discussed with: RICHMOND Results interpretation: Verified all documentation Notes: Patient was seen and evaluated with Candida, examination performed, management plan was discussed, agree with the current scribed note, I made few changes to the note using Italic font Patient was seen at bedside, no changes are recommended Monitor blood pressure CANDIDA LEUNG August 27, 2022 12:11 SAMIR LEAHY MD August 27, 2022 16:14
[2022-08-27 16:04] VITALS: BP 142/65
[2022-08-27] MEDS ORDERED: GLUCAGON EMERGENCY 1 MG/KIT SC PRN (16:15)
[2022-08-27] MEDS: SERTRALINE 50 MG (ZOLOFT) TABLET PO SCH (18:13)
[2022-08-27] MEDS: RT--FLUTICASONE/SALMETEROL 232-14 (AIRDUO RespiCLICK) IH SCH (18:58)
[2022-08-27] MEDS: LATANOPROST 0.005% (XALATAN) OPHTH SOLN 2.5 ML OU SCH (19:37)
[2022-08-27] MEDS: VANCOMYCIN 125 MG CAPSULE PO SCH (19:38)
[2022-08-27] MEDS: MELATONIN 3 MG TABLET PO PRN (19:41)
[2022-08-27 20:11] VITALS: BP 183/83
[2022-08-27] MEDS ORDERED: NON-FORMULARY MEDICATION 1 EA EA (Fluticasone/Umeclidin/Vilanter (Trelegy Ellipta 100-62.5 INH SCH (21:00)
[2022-08-27 23:32] VITALS: BP 165/70
[2022-08-28 03:10] VITALS: BP 161/72
[2022-08-28] MEDS: inSUlin ASPART (NovoLOG) 1 UNIT/0.01 ML (CHARGE PER UNIT) SC SCH ×4 (05:19→21:44)
[2022-08-28 05:57] LABS: HEMOGLOBIN 12.4 g/dL (13.3-17.7); MEAN CORPUSCULAR HEMOGLOBIN 29 pg (25-34); MONOCYTES # (AUTO) 0.9 10^3/uL (0.0-1.0); MONOCYTES % (AUTO) 7 % (0-12); PLATELET COUNT 102 10^3/uL (130-400)
[2022-08-28 05:58] LABS: BASOPHILS # (AUTO) 0.1 10^3/uL (0.0-0.1); BASOPHILS % (AUTO) 1 % (0-10); EOSINOPHILS # (AUTO) 0.2 10^3/uL (0.0-0.3); EOSINOPHILS % (AUTO) 2 % (0-10); HEMATOCRIT 37 % (40-54); LYMPHOCYTES # (AUTO) 1.3 10^3/uL (1.0-4.0); LYMPHOCYTES % (AUTO) 10 % (12-44); MEAN CORPUSCULAR HGB CONC 33 g/dL (32-36); MEAN CORPUSCULAR VOLUME 88 fL (80-99); MEAN PLATELET VOLUME 12.3 fL (9.0-12.2); NEUTROPHILS % (AUTO) 80 % (42-75); WHITE BLOOD COUNT 12.6 10^3/uL (4.3-11.0)
[2022-08-28 06:13] LABS: ALBUMIN 3.1 GM/DL (3.2-4.5)
[2022-08-28 06:15] LABS: CALCIUM 8.6 MG/DL (8.5-10.1)
[2022-08-28 06:16] LABS: TOTAL PROTEIN 5.3 GM/DL (6.4-8.2)
[2022-08-28 06:18] LABS: BILIRUBIN,TOTAL 0.9 MG/DL (0.1-1.0)
[2022-08-28 06:20] LABS: CREATININE SERUM 1.38 MG/DL (0.60-1.30)
[2022-08-28 06:22] LABS: MAGNESIUM 1.8 MG/DL (1.6-2.4)
[2022-08-28] MEDS: RT--FLUTICASONE/SALMETEROL 232-14 (AIRDUO RespiCLICK) IH SCH ×2 (06:42→20:58)
[2022-08-28] MEDS: UMECLIDINIUM BROMIDE (INCRUSE ELLIPTA) 7'S IH SCH (06:42)
[2022-08-28 08:00] VITALS: BP 139/68
[2022-08-28] MEDS: SENNOSIDES 8.6 MG (SENOKOT) TAB PO SCH ×2 (08:32→20:29)
[2022-08-28] MEDS: DOCUSATE SODIUM 100 MG (COLACE) CAP PO SCH ×2 (08:32→20:29)
[2022-08-28] MEDS: APIXABAN 5 MG (ELIQUIS) TABLET PO SCH ×2 (08:32→20:29)
[2022-08-28] MEDS: TAMSULOSIN 0.4 MG (FLOMAX) CAP PO SCH ×2 (08:32→20:29)
[2022-08-28] MEDS: FAMOTIDINE 20 MG (PEPCID) TABLET PO SCH (08:32)
--- NOTE | 2022-08-28 11:16 | Progress Note - Hospitalist ---
RACQUELYVONNE 08/28/22 1116: Subjective HPI/CC On Admission Date Seen by Provider: August 28, 2022 Time Seen by Provider: 10:45 Valente Johnson is a 87 yo M with PMH significant for Dementia, asthma, CHF, MONISHA, COPD, IDDM, Afib, CAD (s/p stents in 2007 and 2014). His family called EMS after 1 week of AMS, decreased PO intake, abd discomfort, nausea and vomiting. On exam today pt notes abdominal discomfort but decreased nausea s/p zofran. Subjective/Events-last exam Pt doing okay this am, sitting comfortably in chair. Reports no nausea or abd pain this am, denies n/v/f/c. Has been eating but not full meals and drinking w/o issue. Denies other pain, UOP good, no BM since admission, ambulating some with help. Pt oriented only to person and at times unable to answer questions. Family has elected to pursue [facility], plan to meet with PT today to assess family's ability to move pt. Focused Exam Lactate Level 08/26/22 00:52: Lactic Acid Level 0.77 Objective Exam Vital Signs Vital Signs Date Time Temp Pulse Resp B/P (MAP) Pulse Ox O2 Delivery O2 Flow Rate FiO2 08/28/22 06:42 94 Room Air 08/28/22 03:10 36.8 79 16 161/72 (101) Capillary Refill : Less Than 3 Seconds General Appearance: No Apparent Distress, WD/WN, Obese HEENT: PERRL/EOMI, Normal ENT Inspection, Pharynx Normal, Moist Mucous Membranes Neck: Full Range of Motion, Normal Inspection, Non Tender, Supple Respiratory: Chest Non Tender, Lungs Clear, Normal Breath Sounds, No Accessory Muscle Use, No Respiratory Distress Cardiovascular: Regular Rate, Rhythm, No Gallop, No Murmur, Normal Peripheral Pulses Gastrointestinal: Normal Bowel Sounds, No Organomegaly, No Pulsatile Mass, Non Tender, Soft Extremity: Normal Capillary Refill, Normal Inspection, Normal Range of Motion, Non Tender, No Calf Tenderness Neurologic/Psychiatric: Alert, Disoriented Skin: Normal Color, Warm/Dry Results/Procedures Lab Laboratory Tests 08/28/22 05:13 Patient resulted labs reviewed. Assessment/Plan Assessment and Plan Assess & Plan/Chief Complaint Nephrolithiasis Possible BERENICE - CTA chest/abd/pelvis demonstrated: 4 MM LEFT DISTAL URETERAL STONE JUST PROXIMAL TO U.V.J. WITH HYDROURETER AND HYDRONEPHROSIS - UA bland and patient not septic at this time - Cr 1.38, likely BL for this pt - likely source of abd discomfort, nausea, and vomiting - giving IVF - pain management - CTM - will need urology f/u op Mild CHF Elevated Troponin aFib Hx CAD s/p stenting (2007 and 2014) - troponin mildly elevated 0.077, BNP 231.6 on admission - EKG shows NSR - Cardiology consulted, appreciate recs IDDM Poor PO intake - started ensure meal supplementation - ISS and accuchecks - CTM Poor mobility/debility - Cont to work with PT/OT - PT to assess family ability to help today - plan to pursue [employer] program and Home health RADHA FORDE DO 08/28/222042: Assessment/Plan Assessment and Plan Assess & Plan/Chief Complaint Type II [place] Supervisory-Addendum Brief Verification & Attestation Participated in pt care: history, MDM, physical Personally performed: exam, history, MDM, supervision of care Care discussed with: Medical Student Procedures: n/a Results interpretation: Verified all documentation Verification and Attestation of Medical Student E/M Service A medical student performed and documented this service in my presence. I reviewed and verified all information documented by the medical student and made modifications to such information, when appropriate. I personally performed the physical exam and medical decision making. Radha Forde, August 28, 2022,20:43 YVONNE CLEMENT August 28, 2022 11:16 RADHA FORDE DO August 28, 2022 20:43
[2022-08-28 11:35] VITALS: BP 187/78
--- NOTE | 2022-08-28 11:37 | Physical Therapy Daily Note ---
PT Daily Note-Current Subjective Patient lying supine in bed upon PT arrival, agreeable to treatment. Patient rates pain at 0/10. Pain Section J - Health Conditions 1. Rarely or not at all 2. Occasionally 3. Frequently 4. Almost constantly 8. Unable to answer Pain Effect on Sleep: 1 Pain Interference with Therapy: 1 Pain Interference w/Day-to-Day: 1 Mental Status Patient Orientation: Person Transfers SCALE: Activities may be completed with or without assistive devices. 2-Hdzahjpqgo-vhechsp completes the activity by him/herself with no assistance from a helper. 5-Set-up or Clean-up Assistance-helper sets up or cleans up; patient completes activity. [place] assists only prior to or following the activity. 4-Supervision or Touching Assistance-helper provides verbal cues and/or touching/steadying and/or contact guard assistance as patient completes activity. Assistance may be provided throughout the activity or intermittently. 3-Partial/Moderate Assistance-helper does LESS THAN HALF the effort. [place] lifts, holds or supports trunk or limbs, but provides less than half the effort. 2-Substantial/Maximal Assistance-helper does MORE THAN HALF the effort. [place] lifts or holds trunk or limbs and provides more than half the effort. 9-Invpvbyhx-ygflzd does ALL the effort. Patient does none of the effort to complete the activity. Or, the assistance of 2 or more helpers is required for the patient to complete the activity. If activity was not attempted, code reason: 7-Patient Refused. 9-Not Applicable-not attempted and the patient did not perform the activity before the current illness, exacerbation or injury. 10-Not Attempted due to Environmental Limitations-(lack of equipment, weather restraints, etc.). 88-Not Attempted due to Medical Conditions or Safety Concerns. Roll Left & Right (QC): 4 Sit to Lying (QC): 2 Lying to Sitting/Side of Bed(Q: 2 Sit to Stand (QC): 2 Chair/Zqj-no-Xyrwz Xfer(QC): 2 Weight Bearing Right Lower Extremity: Right Full Weight Bearing Left Lower Extremity: Left Full Weight Bearing Gait Training Distance: 3 feet Walk 10 feet (QC): 2 Gait Persons Needed: 1 Gait Assistive Device: FWW Assessment Current Status: Fair Progress Patient tolerated treatment well. He performs all observed bed mobility with SBA and transfers with Max A. Patient ambulates 3 feet with FWW, with max A and verbal cues to the chair. Patient in chair post treatment with all needs met, nursing notified, call light in reach. PT Wire Mill Operator Goals Wire Mill Operator Goals PT [facility] Goals Time Frame: September 07, 2022 Roll Left & Right (QC): 4 Sit to Lying (QC): 4 Lying-Sitting on Side/Bed(QC): 4 Sit to Stand (QC): 4 Chair/Sgs-sj-Qvrji Xfer(QC): 4 Toilet Transfer (QC): 4 Does the Patient Walk: Yes Walk 10 feet (QC): 3 Walk 50ft with 2 Turns (QC): 3 Walk 150 ft (QC): 3 PT Plan Problem List Problem List: Activity Tolerance, Functional Strength, Safety, Balance, Gait, Transfer, Bed Mobility, ROM Treatment/Plan Treatment Plan: Continue Plan of Care Treatment Plan: Bed Mobility, Education, Functional Activity Rani, Functional Strength, Group Therapy, Gait, Safety, Therapeutic Exercise, Transfers Treatment Duration: September 25, 2022 Frequency: 6 times per week Estimated Hrs Per Day: .25 hour per day Patient and/or Family Agrees t: Yes Safety Risks/Education Patient Education: Gait Training, Transfer Techniques Teaching Recipient: Patient Teaching Methods: Demonstration, Discussion Response to Teaching: Reinforcement Needed Discharge Recommendations Therapy Discharge Recommendati: 24 Hour Supervision Time Time In: 833 Time Out: 847 DATE: August 28, 2022 Total Billed Treatment Time: 14 Total Billed Treatment Visit, LEE WILBURN PT August 28, 2022 11:37
--- NOTE | 2022-08-28 12:08 | Progress Note - Cardiology ---
Cardiology SOAP Progress Note Subjective: No cp or palp or syncope Gen weakness and malaise No focal weakness No n/v/d Objective: I&O/Vital Signs 08/28/22 08/28/22 08/28/22 08/28/22 01:00 03:10 06:42 08:00 Temp 36.8 Pulse 87 79 Resp 16 B/P (MAP) 161/72 (101) Pulse Ox 95 94 O2 Delivery Room Air Room Air Room Air 08/28/22 08/28/22 08:00 11:35 Temp 36.8 36.4 Pulse 78 70 Resp 19 20 B/P (MAP) 139/68 (91) 187/78 (114) Pulse Ox 95 97 O2 Delivery Room Air Room Air 08/28/22 00:00 Intake Total 300 ml Output Total 275 ml Balance 25 ml Constitutional: No AAO x 3; other (mildly confused, pleasant) Respiratory: No accessory muscle use; chest expansion is symmetric, chest is bilaterally symmetric, other (fair to good, bilateral air entry) Cardiovascular: regular rate-rhythm, S1 and S2, systolic murmur (soft YARON at card base) Gastrointestional: No tender; soft; No guarding, No rebound; audible bowel sounds Extremities: No clubbing, No cyanosis, No significant edema Neurologic/Psychiatric: other (mildly confused, moves all limbs, cannot cooperate with a neuro exam) Skin: No rash on exposed areas, No ulcerations on exposed areas Results/Procedures: Labs Laboratory Tests 08/27/22 16:20: Glucometer 99 08/27/22 20:30: Glucometer 121H 08/28/22 05:08: Glucometer 107 08/28/22 05:13: White Blood Count 12.6H, Red Blood Count 4.26L, Hemoglobin 12.4L, Hematocrit 37L , Mean Corpuscular Volume 88, Mean Corpuscular Hemoglobin 29, Mean Corpuscular Hemoglobin Concent 33, Red Cell Distribution Width 15.3H, Platelet Count 102L, Mean Platelet Volume 12.3H, Immature Granulocyte % (Auto) 1, Neutrophils (%) (Auto) 80H, Lymphocytes (%) (Auto) 10L, Monocytes (%) (Auto) 7, Eosinophils (%) (Auto) 2, Basophils (%) (Auto) 1, Neutrophils # (Auto) 10.0H, Lymphocytes # (Auto) 1.3, Monocytes # (Auto) 0.9, Eosinophils # (Auto) 0.2, Basophils # (Auto) 0.1, Immature Granulocyte # (Auto) 0.1, Percent Immature Platelet Fraction 6.2, Sodium Level 141, Potassium Level 4.0, Chloride Level 111H, Carbon Dioxide Level 20L, Anion Gap 10, Blood Urea Nitrogen 15, Creatinine 1.38H, Estimat Glomerular Filtration Rate 50, BUN/Creatinine Ratio 11, Glucose Level 123H, Calcium Level 8.6, Corrected Calcium 9.3, Magnesium Level 1.8, Total Bilirubin 0.9, Aspartate Amino Transf (AST/SGOT) 15, Alanine Aminotransferase (ALT/SGPT) 8, Alkaline Phosphatase 83, Total Protein 5.3L, Albumin 3.1L 08/28/22 10:34: Glucometer 198H Laboratory Tests 08/27/22 05:07 08/28/22 05:13 A/P: Assessment: Poor oral intake and worsening confusion at presentation - managed by Dr De Dios Mild troponin elevation - probably type 2 NH due to hypertension Mild leucocytosis - managed by Dr De Dios Chronic poor balance Shortness of breath with exertion - chronic and unchanged - Echocardiogram of 06-08-20. LVEF 60-65%. Grade 2 diastolic dysfunction. Mild MR. Mild to mod TR. PASP 50-55mmHg - Echo of 07/23/22: LVEF 55-60%, mild MAC, adequately functioning TAVR H/o dual ch perm pacemaker ([employer]) - implanted for symptomatic bradycardia in Nov [address] Brooks in [place], [place]. - gen change in late August 2020 - device functioning normally per interrogation of 07-24-22 S/p TAVR - ([employer] Model [id number], Sr no [id number]) on 12/24/19 at [place], [place] H/o SVT and A Fib/Fl - stated to have been treated with ablation in October 2016 at [place], [place] - chronic apixaban anticoagulation CAD - H/o cor stents in Mar [address] [facility]. - MPI of 01-16-21 No evidence of any significant myocardial ischemia or infarction on this study. Normal regional wall motion. Normal global left ventricular systolic function with a calculated ejection fraction of 71%. COPD - managed by PCP DM II - managed by PCP Obesity - with BMI approx 30 and obesity-hypoventilation and MONISHA Medication Allergies - (per pt report): Anaphylaxis for penicillin and phenergan - bronchospasm with sotalol and rozarem Opthamology - H/o bilateral cataract surgery and lens implants L-sided, dry, macular degen Chronic hearing loss Carotid dz - There appears to be considerable plaque and moderate stenosis of the R common carotid and mild to moderate stenosis of the R internal carotid. Approximately 50% L internal carotid artery stenosis per u/s of Feb 23, 2020 - Carotid u/s of 07-03-21 shows approx 60-79% L ICA and approx 50% R ICA stenosis Leg discomfort - Segmentals pressure of Feb 23, 2020 showed no evidence of any signif blood flow impairment to the distal arterial circulation of the lower limbs. Prox atherosclerosis is suggested. - No c/o claudication Plan: * Continue ASA * Add beta-kinza * Monitor labs * Address nutrition and oral intake (Dr De Dios managing) MERCEDES VAZQUEZ MD FACP FACC CCDS August 28, 2022 12:08
--- NOTE | 2022-08-28 13:17 | Occupational Ther Daily Note ---
OT Current Status-Daily Note Subjective Sitting upright in recliner, visitor present, agrees to OT Mental Status/Objective Patient Orientation: Person not oriented to location of city/state or hospital, not oriented to date of week or month ADL-Treatment Therapy Code Descriptions/Definitions Functional [place] Measure: 0=Not Assessed/NA 4=Minimal Assistance 1=Total Assistance 5=Supervision or Setup 2=Maximal Assistance 6=Modified [place] 3=Moderate Assistance 7=Complete IndependenceSCALE: Activities may be completed with or without assistive devices. 1-Ffzgwrlius-niopmqf completes the activity by him/herself with no assistance from a helper. 5-Set-up or Clean-up Assistance-helper sets up or cleans up; patient completes activity. [place] assists only prior to or following the activity. 4-Supervision or Touching Assistance-helper provides verbal cues and/or touching/steadying and/or contact guard assistance as patient completes activity. Assistance may be provided throughout the activity or intermittently. 3-Partial/Moderate Assistance-helper does LESS THAN HALF the effort. [place] lifts, holds or supports trunk or limbs, but provides less than half the effort. 2-Substantial/Maximal Assistance-helper does MORE THAN HALF the effort. [place] lifts or holds trunk or limbs and provides more than half the effort. 6-Lvnbjuhln-rikccm does ALL the effort. Patient does none of the effort to complete the activity. Or, the assistance of 2 or more helpers is required for the patient to complete the activity. If activity was not attempted, code reason: 7-Patient Refused. 9-Not Applicable-not attempted and the patient did not perform the activity before the current illness, exacerbation or injury. 10-Not Attempted due to Environmental Limitations-(lack of equipment, weather restraints, etc.). 88-Not Attempted due to Medical Conditions or Safety Concerns. Other Treatment BUE THER EX for ADL and transfers, repeat sit/stands x5 w/ Max assist, scoot forward and back for transfer preparation and endurance training, unsupported upright sitting for functional dynamic reach tasks. Education OT Patient Education: Correct positioning, Exercise program, Progress toward Goal/Update tx plan, Purpose of tx/functional activities, Reviewed precautions, Rehab process, Safety issues, Transfer techniques Teaching Recipient: Patient, Family Teaching Methods: Demonstration, Discussion Response to Teaching: Reinforcement Needed OT Aircraft Engine Dismantler Goals Custodial Goals 1=Demonstrate adherence to instructed precautions during ADL tasks. 2=Patient will verbalize/demonstrate understanding of assistive devices/modifications for ADL. 3=Patient will improve strength/tolerance for activity to enable patient to per form ADL's. OT Education/Plan Problem List/Assessment Assessment: Decreased Activ Tolerance, Decreased Safety Aware, Decreased UE Strength, Dependent Transfers, Impaired Cognition, Impaired Coordination, Impair ed Funct Balance, Impaired Self-Care Skills Discharge Recommendations Plan/Recommendations: Continue POC Therapy Discharge Recommendati: 24 Hour Supervision Treatment Plan/Plan of Care Treatment,Training & Education: Yes Patient would benefit from OT for education, treatment and training to promote independence in ADL's, mobility, safety and/or upper extremity function for ADL's. Plan of Care: ADL Retraining, Functional Mobility, Group Exercise/Act as Ind, UE Funct Exercise/Act Treatment Duration: September 07, 2022 Frequency: 3 times per week (3-5 times per week) Estimated Hrs Per Day: .25 hour per day Agreement: Yes Rehab Potential: Fair Remains seated in recliner w/ visitor, all needs met Time Start Time: 09:44 Stop Time: 10:00 DATE: August 28, 2022 Total Time Billed (hr/min): 16 Billed Treatment Time EX 16 min CARLOS LEE OT August 28, 2022 13:17
[2022-08-28 16:06] VITALS: BP 176/81
[2022-08-28] MEDS: ASPIRIN E.C. 81 MG (ECOTRIN) TAB PO SCH (17:13)
[2022-08-28] MEDS: SERTRALINE 50 MG (ZOLOFT) TABLET PO SCH (17:13)
--- NOTE | 2022-08-28 17:48 | Physician Query Clarification ---
Physician Query-General Query to Physician: The medical record reflects the following clinical scenario: The patient, in the setting of History/Risk factors, Admitted with AMS and abdominal pain, HX CAD and IDDM Clinical Findings troponin I 0.032, then 0.077, SBP 150-180's, EKG "Atrial paced", Borderline T abnormalities Treatment Cardiology Consult, troponin monitoring, EKG monitoring, ASA, Metoprolol and Eliquis, BP management Question: Do you agree with the impression of "probably type 2 NV due to hypertension" per Dr. Rachel Sparrow? Yes; will document probably type 2 NV due to hypertension, present on admission in the Progress Notes No; will continue current documentation in the Progress Notes Other; will document explanation of clinical findings Clinically undetermined; no explanation for clinical findings Please clarify and document your clinical opinion in the Progress Notes and Discharge Summary including the definitive and/or presumptive diagnosis, (suspected or probable), related to the above clinical findings. Please include clinical findings supporting your diagnosis. In responding to this query, please exercise your independent professional judgment. The purpose of this communication is to more accurately reflect the complexity of your patients condition. The fact that a question is asked does not imply that any particular answer is desired or expected. Thank you for timely response to this clarification. Donna Walsh, MSN, RN Clinical Game Advisor [phone] [email or web address] PHYSICIAN RESPONSE: Based on the clinical findings in the record, please respond to the query above on this document as an addendum. Physician Response: Physician Response yes If you have questions please contact: Wagon Driver: Ext: Thank you for your time and cooperation. Clinical Game Advisor/Wagon Driver This is a permanent part of the medical record DONNA WALSH August 28, 2022 17:48 EDEN FORDE DO August 28, 2022 19:56
[2022-08-28 19:59] VITALS: BP 175/82
[2022-08-28] MEDS: VANCOMYCIN 125 MG CAPSULE PO SCH (20:29)
[2022-08-28] MEDS: LATANOPROST 0.005% (XALATAN) OPHTH SOLN 2.5 ML OU SCH (20:29)
[2022-08-28] MEDS: MELATONIN 3 MG TABLET PO PRN (20:29)
[2022-08-28 21:00] VITALS: BP 158/80
[2022-08-29 00:20] VITALS: BP 174/77
[2022-08-29 03:51] VITALS: BP 157/71
[2022-08-29 05:39] LABS: HEMOGLOBIN 11.6 g/dL (13.3-17.7); MEAN CORPUSCULAR VOLUME 87 fL (80-99)
[2022-08-29 05:41] LABS: BASOPHILS # (AUTO) 0.1 10^3/uL (0.0-0.1); BASOPHILS % (AUTO) 1 % (0-10); EOSINOPHILS # (AUTO) 0.3 10^3/uL (0.0-0.3); EOSINOPHILS % (AUTO) 2 % (0-10); HEMATOCRIT 35 % (40-54); LYMPHOCYTES # (AUTO) 1.4 10^3/uL (1.0-4.0); LYMPHOCYTES % (AUTO) 13 % (12-44); MEAN CORPUSCULAR HEMOGLOBIN 29 pg (25-34); MEAN CORPUSCULAR HGB CONC 34 g/dL (32-36); MEAN PLATELET VOLUME 11.9 fL (9.0-12.2); MONOCYTES # (AUTO) 0.7 10^3/uL (0.0-1.0); MONOCYTES % (AUTO) 7 % (0-12); NEUTROPHILS # (AUTO) 8.5 10^3/uL (1.8-7.8); NEUTROPHILS % (AUTO) 77 % (42-75); PLATELET COUNT 96 10^3/uL (130-400); WHITE BLOOD COUNT 11.1 10^3/uL (4.3-11.0)
[2022-08-29] MEDS: inSUlin ASPART (NovoLOG) 1 UNIT/0.01 ML (CHARGE PER UNIT) SC SCH ×2 (05:44→11:37)
[2022-08-29 05:53] LABS: ALBUMIN 2.9 GM/DL (3.2-4.5)
[2022-08-29 05:54] LABS: POTASSIUM 3.9 MMOL/L (3.6-5.0)
[2022-08-29 05:55] LABS: CALCIUM 8.6 MG/DL (8.5-10.1)
[2022-08-29 05:58] LABS: BILIRUBIN,TOTAL 1.1 MG/DL (0.1-1.0)
[2022-08-29 06:00] LABS: CREATININE SERUM 1.47 MG/DL (0.60-1.30)
[2022-08-29 06:03] LABS: MAGNESIUM 1.8 MG/DL (1.6-2.4)
[2022-08-29] MEDS: RT--FLUTICASONE/SALMETEROL 232-14 (AIRDUO RespiCLICK) IH SCH (07:10)
[2022-08-29] MEDS: UMECLIDINIUM BROMIDE (INCRUSE ELLIPTA) 7'S IH SCH (07:11)
[2022-08-29 07:19] VITALS: BP 136/79
[2022-08-29] MEDS: SENNOSIDES 8.6 MG (SENOKOT) TAB PO SCH (08:56)
[2022-08-29] MEDS: TAMSULOSIN 0.4 MG (FLOMAX) CAP PO SCH (08:56)
[2022-08-29] MEDS: DOCUSATE SODIUM 100 MG (COLACE) CAP PO SCH (08:56)
[2022-08-29] MEDS: FAMOTIDINE 20 MG (PEPCID) TABLET PO SCH (08:57)
[2022-08-29] MEDS: APIXABAN 5 MG (ELIQUIS) TABLET PO SCH (08:57)
[2022-08-29] MEDS ORDERED: PANTOPRAZOLE 40 MG (PROTONIX) TAB PO SCH (09:00)
[2022-08-29 09:01] VITALS: BP 147/67
--- NOTE | 2022-08-29 11:09 | Physical Therapy Daily Note ---
PT Daily Note-Current Subjective Patient agrees to PT. Pain Section J - Health Conditions 1. Rarely or not at all 2. Occasionally 3. Frequently 4. Almost constantly 8. Unable to answer Pain Effect on Sleep: 1 Pain Interference with Therapy: 1 Pain Interference w/Day-to-Day: 1 Mental Status Patient Orientation: Confused Transfers SCALE: Activities may be completed with or without assistive devices. 4-Rvnlcpwdko-cqgqqrs completes the activity by him/herself with no assistance from a helper. 5-Set-up or Clean-up Assistance-helper sets up or cleans up; patient completes activity. [place] assists only prior to or following the activity. 4-Supervision or Touching Assistance-helper provides verbal cues and/or touching/steadying and/or contact guard assistance as patient completes activity. Assistance may be provided throughout the activity or intermittently. 3-Partial/Moderate Assistance-helper does LESS THAN HALF the effort. [place] lifts, holds or supports trunk or limbs, but provides less than half the effort. 2-Substantial/Maximal Assistance-helper does MORE THAN HALF the effort. [place] lifts or holds trunk or limbs and provides more than half the effort. 4-Gpxzuflwf-itqese does ALL the effort. Patient does none of the effort to complete the activity. Or, the assistance of 2 or more helpers is required for the patient to complete the activity. If activity was not attempted, code reason: 7-Patient Refused. 9-Not Applicable-not attempted and the patient did not perform the activity before the current illness, exacerbation or injury. 10-Not Attempted due to Environmental Limitations-(lack of equipment, weather restraints, etc.). 88-Not Attempted due to Medical Conditions or Safety Concerns. Sit to Stand (QC): 3 Chair/Iov-rm-Iekkq Xfer(QC): 3 (impulsive to sit/not safe without assistance) Weight Bearing Right Lower Extremity: Right Full Weight Bearing Left Lower Extremity: Left Full Weight Bearing Gait Training Distance: 50' Walk 10 feet (QC): 2 Walk 50 ft with 2 Turns(QC): 2 Gait Assistive Device: FWW extended UE's with FWW use/difficulty with following simple direction Assessment Patient remains up in recliner with chair alarm activated. Patient requires mod assist with all mobility and is unaware of safety concerns. PT Fpc Goals Parts Data Writer Goals PT Parts Data Writer Goals Time Frame: September 07, 2022 Roll Left & Right (QC): 4 Sit to Lying (QC): 4 Lying-Sitting on Side/Bed(QC): 4 Sit to Stand (QC): 4 Chair/Fxx-cj-Qypta Xfer(QC): 4 Toilet Transfer (QC): 4 Does the Patient Walk: Yes Walk 10 feet (QC): 3 Walk 50ft with 2 Turns (QC): 3 Walk 150 ft (QC): 3 PT Plan Treatment/Plan Treatment Plan: Continue Plan of Care Treatment Plan: Bed Mobility, Education, Functional Activity Rani, Functional Strength, Group Therapy, Gait, Safety, Therapeutic Exercise, Transfers Treatment Duration: September 25, 2022 Frequency: 6 times per week Estimated Hrs Per Day: .25 hour per day Patient and/or Family Agrees t: Yes Time Time In: 1037 Time Out: 1047 DATE: August 29, 2022 Total Billed Treatment Time: 10 Total Billed Treatment 1 visit FA 10 min SHAWNA TAVARES PT August 29, 2022 11:09
[2022-08-29 11:18] VITALS: BP 157/84
[2022-08-29] MEDS ORDERED: PANT40TA52 PO (12:11)
[2022-08-29] MEDS ORDERED: INSU200I4 SQ (12:11)
[2022-08-29] MEDS ORDERED: MTP25TSR PO (12:11)
--- NOTE | 2022-08-29 12:12 | D/C HH Face to Face Order ---
D/C Face to Face Orders Reconcile Patient Problems Problems Reviewed?: Yes Instructions for Patient Via [facility], Patient Instructions/FollowUp: PCP 1 week Physician to follow Patient: [facility] Discharge Diet for Home: ADA Diet Patient Problems: Dementia rapidly progressive to end stage Patient Data-Allergies,Ht & Wt Patient Allergies: Coded Allergies: Penicillins (Verified Allergy, Severe, Anaphylaxis, 01/15/22) promethazine (Verified Allergy, Severe, Anaphylaxis, 01/15/22) ramelteon (Verified Allergy, Unknown, Shortness of Breath, 02/27/20) "Severe bronchospasm" sotalol (Verified Allergy, Unknown, Shortness of Breath, 02/27/20) "Severe bronchospasm" Home Health Need/Face to Face Date of Face to Face: August 29, 2022 Clinical Findings: Generalized weakness and fatigue, Instability, Muscle weakness I have seen Pt pefa-zs-otht: Yes Discharged To: Home Diagnosis/Conditions: Dementia Patient is Homebound due to: CognItive deficits, Reina fall risk due to instabilty, Muscle weakness Homebound Status Due to the above stated illness, injury or surgical procedure (medical condition or diagnosis) and associated clinical findings, the patient is homebound because of his/her inability to leave home except with aid of a supportive device and/or person AND leaving the home requires a considerable and taxing effort or is medically contraindicated. Pt req the following assistanc: Walker Home Health Nursing Orders Home Health Services Order: Nursing Services, Registered Land Surveyor-Evaluate & Treat, Physical Therapy-Evaluate & Treat Certify Stmt I certify that this patient is under my care and that I, a nurse practitioner or a physician; a physician assistant surgery working with me, had a face to face encounter that - meets the physician face to face encounter requirements with this patient as dated. EDEN FORDE DO August 29, 2022 12:12
--- NOTE | 2022-08-29 12:12 | Discharge Summary ---
Discharge Summary Hospital Course Was the Problem List Reviewed?: Yes Problems/Dx: (1) Episode of confusion Status: Acute (2) Mild congestive heart failure Status: Acute (3) Elevated troponin Status: Acute (4) Dementia Status: Acute (5) IDDM (insulin dependent diabetes mellitus) Status: Acute Hospital Course Date of Admission: August 26, 2022 at 02:43 Admission Diagnosis : Family Physician/Provider: [place]/[facility] Date of Discharge: 08/29/22 Discharge Diagnosis: [ ] Hospital Course: Lengthy course after he was admitted for confusion and elevated troponin. Home meds restarted and therapy consulted along with cardiology for elevated troponin. Patient did well but it was apparent dementia was end stage so bridges program was planned at [place] along with and declined NHP. Labs and Pending Lab Test: Laboratory Tests 08/28/22 15:55: Glucometer 109 08/28/22 20:54: Glucometer 121H 08/29/22 05:27: White Blood Count 11.1H, Red Blood Count 3.96L, Hemoglobin 11.6L, Hematocrit 35L , Mean Corpuscular Volume 87, Mean Corpuscular Hemoglobin 29, Mean Corpuscular Hemoglobin Concent 34, Red Cell Distribution Width 15.0H, Platelet Count 96L, Mean Platelet Volume 11.9, Immature Granulocyte % (Auto) 0, Neutrophils (%) (Auto) 77H, Lymphocytes (%) (Auto) 13, Monocytes (%) (Auto) 7, Eosinophils (%) (Auto) 2, Basophils (%) (Auto) 1, Neutrophils # (Auto) 8.5H, Lymphocytes # (Auto) 1.4, Monocytes # (Auto) 0.7, Eosinophils # (Auto) 0.3, Basophils # (Auto) 0.1, Immature Granulocyte # (Auto) 0.0, Percent Immature Platelet Fraction 5.5, Sodium Level 140, Potassium Level 3.9, Chloride Level 109H, Carbon Dioxide Level 21, Anion Gap 10, Blood Urea Nitrogen 18, Creatinine 1.47H, Estimat Glomerular Filtration Rate 46, BUN/Creatinine Ratio 12, Glucose Level 109H, Calcium Level 8.6, Corrected Calcium 9.5, Magnesium Level 1.8, Total Bilirubin 1.1H, Aspartate Amino Transf (AST/SGOT) 15, Alanine Aminotransferase (ALT/SGPT) 8, Alkaline Phosphatase 75, Total Protein 5.0L, Albumin 2.9L 08/29/22 05:42: Glucometer 100 08/29/22 11:03: Glucometer 139H Home Meds Active Pantoprazole Sodium 40 Mg Tablet.dr 40 Mg PO DAILY Metoprolol Succinate 25 Mg Tab.er.24h 25 Mg PO DAILY Tresiba Flextouch U-200 (Insulin Degludec) 200 Unit/Ml (3 Ml) Insuln.pen 15 Unit SQ BID 7 Days Reported Famotidine 20 Mg Tablet 20 Mg PO DAILY Ozempic (Semaglutide) 2 Mg/0.75 Ml (8 Mg/3 Ml) Pen.injctr 2 Mg SQ FRI Vancomycin HCl 125 Mg Capsule 125 Mg PO HS Insulin Aspart Flexpen (Insulin Aspart) 100 Unit/Ml (3 Ml) Insuln.pen Unit SQ AC USES NEEDED PER SLIDING SCALE: 0-149=0 UNITS 150-199=2 UNITS 200-249=4 UNITS 250-349=7 UNITS 350 AND ABOVE=10 UNITS Gvoke Hypopen (Glucagon) 0.5 Mg/0.1 Ml Auto.injct 0.5 Mg SQ UD PRN Sertraline HCl 50 Mg Tablet 75 Mg PO 1800 TAKES 1 AND 1/2 OF (50MG) TAB Latanoprost 0.005% Eye Drop (Latanoprost/Pf) 0.005 % Drops 1 Drop OU HS Flomax (Tamsulosin HCl) 0.4 Mg Cap 0.4 Mg PO BID Aspirin EC (Aspirin) 81 Mg Tablet.dr 162 Mg PO 1800 TAKES 2 (81MG) TABS Ventolin Hfa (Albuterol Sulfate) 18 Gm Hfa.aer.ad 2 Puff INH Q4H PRN Nitroglycerin 0.4 Mg Tab.subl 0.4 Mg SL UD PRN Atorvastatin Calcium 20 Mg Tablet 20 Mg PO HS Eliquis (Apixaban) 5 Mg Tablet 5 Mg PO BID Trelegy Ellipta 100-62.5-25 (Fluticasone/Umeclidin/Vilanter) 1 Each Blst.w.dev 1 Puff INH HS Assessment/Pt Instructions pcp 1 week Discharge Planning: <30 minutes discharge planning Discharge Instructions Discharge Diet: ADA Diet Discharge Physical Examination Vital Signs Vital Signs Date Time Temp Pulse Resp B/P (MAP) Pulse Ox O2 Delivery O2 Flow Rate FiO2 08/29/22 11:18 36.4 70 18 157/84 (108) 96 Room Air General Appearance: No Apparent Distress, WD/WN, Chronically ill Allergies: Coded Allergies: Penicillins (Verified Allergy, Severe, Anaphylaxis, 01/15/22) promethazine (Verified Allergy, Severe, Anaphylaxis, 01/15/22) ramelteon (Verified Allergy, Unknown, Shortness of Breath, 02/27/20) "Severe bronchospasm" sotalol (Verified Allergy, Unknown, Shortness of Breath, 02/27/20) "Severe bronchospasm" Discharge Summary Date of Admission August 26, 2022 at 02:43 Date of Discharge Discharge Date: August 29, 2022 Admission Diagnosis AMS Elevated troponin Kidney stone Discharge Diagnosis Type II DC EDEN FORDE DO August 29, 2022 12:12
--- NOTE | 2022-08-29 13:22 | Progress Note - Cardiology ---
Cardiology SOAP Progress Note Subjective: No cp or palp or syncope No shortness of breath at rest No n/v/d Gen weakness No focal weakness Objective: I&O/Vital Signs 08/29/22 08/29/22 08/29/22 08/29/22 03:51 07:00 07:11 07:12 Temp 36.4 Pulse 77 70 Resp 18 B/P (MAP) 157/71 (99) Pulse Ox 95 95 95 O2 Delivery Room Air 08/29/22 08/29/22 08/29/22 08/29/22 07:19 08:00 09:01 11:18 Temp 36.7 36.4 Pulse 72 70 Resp 19 18 B/P (MAP) 136/79 (98) 147/67 (93) 157/84 (108) Pulse Ox 96 96 O2 Delivery Room Air Room Air Room Air 08/28/22 23:59 Intake Total 890 ml Output Total 175 ml Balance 715 ml Constitutional: No AAO x 3; other (mildly confused, pleasant) Respiratory: No accessory muscle use; chest expansion is symmetric, chest is bilaterally symmetric, other (fair to good, bilateral air entry) Cardiovascular: regular rate-rhythm, S1 and S2, systolic murmur (soft YARON at card base) Gastrointestional: No tender; soft; No guarding, No rebound; audible bowel sounds Extremities: No clubbing, No cyanosis, No significant edema Neurologic/Psychiatric: other (mildly confused, moves all limbs, cannot cooperate with a neuro exam) Skin: No rash on exposed areas, No ulcerations on exposed areas Results/Procedures: Labs Laboratory Tests 08/28/22 15:55: Glucometer 109 08/28/22 20:54: Glucometer 121H 08/29/22 05:27: White Blood Count 11.1H, Red Blood Count 3.96L, Hemoglobin 11.6L, Hematocrit 35L , Mean Corpuscular Volume 87, Mean Corpuscular Hemoglobin 29, Mean Corpuscular Hemoglobin Concent 34, Red Cell Distribution Width 15.0H, Platelet Count 96L, Mean Platelet Volume 11.9, Immature Granulocyte % (Auto) 0, Neutrophils (%) (Auto) 77H, Lymphocytes (%) (Auto) 13, Monocytes (%) (Auto) 7, Eosinophils (%) (Auto) 2, Basophils (%) (Auto) 1, Neutrophils # (Auto) 8.5H, Lymphocytes # (Auto) 1.4, Monocytes # (Auto) 0.7, Eosinophils # (Auto) 0.3, Basophils # (Auto) 0.1, Immature Granulocyte # (Auto) 0.0, Percent Immature Platelet Fraction 5.5, Sodium Level 140, Potassium Level 3.9, Chloride Level 109H, Carbon Dioxide Level 21, Anion Gap 10, Blood Urea Nitrogen 18, Creatinine 1.47H, Estimat Glomerular Filtration Rate 46, BUN/Creatinine Ratio 12, Glucose Level 109H, Calcium Level 8.6, Corrected Calcium 9.5, Magnesium Level 1.8, Total Bilirubin 1.1H, Aspartate Amino Transf (AST/SGOT) 15, Alanine Aminotransferase (ALT/SGPT) 8, Alkaline Phosphatase 75, Total Protein 5.0L, Albumin 2.9L 08/29/22 05:42: Glucometer 100 08/29/22 11:03: Glucometer 139H Laboratory Tests 08/28/22 05:13 08/29/22 05:27 A/P: Assessment: Poor oral intake and worsening confusion at presentation - managed by Dr De Dios Mild troponin elevation - probably type 2 IN due to hypertension Mild leucocytosis - managed by Dr De Dios Chronic poor balance Shortness of breath with exertion - chronic and unchanged - Echocardiogram of 06-08-20. LVEF 60-65%. Grade 2 diastolic dysfunction. Mild MR. Mild to mod TR. PASP 50-55mmHg - Echo of 07/23/22: LVEF 55-60%, mild MAC, adequately functioning TAVR H/o dual ch perm pacemaker ([employer] / [employer]) - implanted for symptomatic bradycardia in Nov [address] Brooks in [place], [place]. - gen change in late August 2020 - device functioning normally per interrogation of 07-24-22 S/p TAVR - ([employer] Model [id number], Sr no [id number]) on 12/24/19 at [place], [place] H/o SVT and A Fib/Fl - stated to have been treated with ablation in October 2016 at [place], [place] - chronic apixaban anticoagulation CAD - H/o cor stents in Mar 2015 at [facility]. - MPI of 01-16-21 No evidence of any significant myocardial ischemia or infarction on this study. Normal regional wall motion. Normal global left ventricular systolic function with a calculated ejection fraction of 71%. COPD - managed by PCP DM II - managed by PCP Obesity - with BMI approx 30 and obesity-hypoventilation and MONISHA Medication Allergies - (per pt report): Anaphylaxis for penicillin and phenergan - bronchospasm with sotalol and rozarem Opthamology - H/o bilateral cataract surgery and lens implants L-sided, dry, macular degen Chronic hearing loss Carotid dz - There appears to be considerable plaque and moderate stenosis of the R common carotid and mild to moderate stenosis of the R internal carotid. Approximately 50% L internal carotid artery stenosis per u/s of Feb 23, 2020 - Carotid u/s of 07-03-21 shows approx 60-79% L ICA and approx 50% R ICA stenosis Leg discomfort - Segmentals pressure of Feb 23, 2020 showed no evidence of any signif blood flow impairment to the distal arterial circulation of the lower limbs. Prox atherosclerosis is suggested. - No c/o claudication Plan: * Continue ASA * Add beta-kinza * Monitor labs * Address nutrition and oral intake (Dr De Dios managing) * Ok to d/c from cardiac standpoint MERCEDES VAZQUEZ MD FACP FAC CCDS August 29, 2022 13:22
[2022-08-29 14:51] VITALS: BP 157/84
--- NOTE | 2022-09-02 23:12 | Physician Query Clarification ---
PQ-CHF Specificity Admission Date: August 26, 2022 at 02:43 Discharge Date: August 29, 2022 at 14:45 The medical record reflects the following clinical scenario: History/Risk Factors: AMS Clinical Findings: CHF, HYPERTENSION Treatment: HOME MED-LASIX Question: Can you further specify the acuity &/or type of CHF per the clinical indicators above? Please document a response in the Progress Notes or Discharge Summary. 1. Acuity: Acute, Chronic or Acute on Chronic 2. Type: Systolic, Diastolic or Systolic & Diastolic 3. Unspecified: CHF cannot be further specified regarding type or acuity 4. Other, with explanation of clinical findings 5. Clinically undetermined, no explanation for clinical findings PHYSICIAN RESPONSE Acuity: Chronic Type: Diastolic In responding to this query, please exercise your independent professional judgment. The purpose of this communication is to more accurately reflect the complexity of your patients condition. The fact that a question is asked does not imply that any particular answer is desired or expected. Thank you for your timely response to this clarification. Requestors name: Shyann THIS PHYSICIAN QUERY FORM IS A PERMANENT PART OF THE MEDICAL RECORD SHYANN HICKS September 02, 2022 23:12 EDEN FORDE DO September 03, 2022 04:59
--- NOTE | 2022-09-02 23:27 | Physician Query Clarification ---
SHYANN HICKS 09/02/22 2327: [id number] Principal Diagnosis Principal Diagnosis Document Diagnosis QUESTION: Please specify the condition(s) that was chiefly responsible for oc casioning the admission to the hospital after study/evaluation based on your medical judgment. Please specify the underlying cause of the altered mental status: 1. Acute kidney injury 2. dementia with agitation 3. Other, please specify Acid Concentrator Note Acid Concentrator Note In responding to this query, please exercise your independent professional judgment. The purpose of this communication is to more accurately reflect the complexity of your patients condition. The fact that a question is asked does not imply that any particular answer is desired or expected. Thank you for your timely response to this clarification. Requestors name: Shyann THIS PHYSICIAN QUERY FORM IS A PERMANENT PART OF THE MEDICAL RECORD EDEN FORDE DO 09/03/22 0500: [id number] Principal Diagnosis Question Chief Reason for Admission Aft: SHYANN OLVERA September 02, 2022 23:27 EDEN FORDE DO September 03, 2022 05:00
== END 2022-08-29 14:45 | disposition home health service (06) | DRG 682 ==
LOC: EDUNIT# 00:37 → ER 00:38 → ICU 02:43 → 4TH 11:46
PROVIDERS: ADMIT Internal Medicine; ATTEND Internal Medicine
DX: N17.9 Acute kidney failure, unspecified (principal); I21.A1 Myocardial infarction type 2; F03.911 Unspecified dementia, unspecified severity, with agitation; F05 Delirium due to known physiological condition; I50.32 Chronic diastolic (congestive) heart failure; N13.30 Unspecified hydronephrosis; I11.0 Hypertensive heart disease with heart failure; J44.9 Chronic obstructive pulmonary disease, unspecified; I25.10 Atherosclerotic heart disease of native coronary artery without angina pectoris; I48.91 Unspecified atrial fibrillation; G47.33 Obstructive sleep apnea (adult) (pediatric); E78.00 Pure hypercholesterolemia, unspecified; E11.40 Type 2 diabetes mellitus with diabetic neuropathy, unspecified; H40.9 Unspecified glaucoma; H91.90 Unspecified hearing loss, unspecified ear; M19.90 Unspecified osteoarthritis, unspecified site; H35.3120 Nonexudative age-related macular degeneration, left eye, stage unspecified; I65.23 Occlusion and stenosis of bilateral carotid arteries; I08.1 Rheumatic disorders of both mitral and tricuspid valves; D72.829 Elevated white blood cell count, unspecified; G47.36 Sleep related hypoventilation in conditions classified elsewhere; E66.9 Obesity, unspecified; Z79.4 Long term (current) use of insulin; Z95.0 Presence of cardiac pacemaker; Z79.84 Long term (current) use of oral hypoglycemic drugs; Z95.5 Presence of coronary angioplasty implant and graft; Z79.01 Long term (current) use of anticoagulants; Z88.0 Allergy status to penicillin; Z88.8 Allergy status to other drugs, medicaments and biological substances; Z68.30 Body mass index [BMI] 30.0-30.9, adult; Z95.2 Presence of prosthetic heart valve; Z87.891 Personal history of nicotine dependence; Z79.82 Long term (current) use of aspirin; Z79.899 Other long term (current) drug therapy
CPT/HCPCS: 36415; 71045; 71275; 74177; 80053; 80061; 81000; 82150; 82947; 83605; 83690; 83735; 83880; 84100; 84484; 85025; 85610; 85730; 93005; 93041; 94640